=== PATIENT | male | born 1960 | race Caucasian/White ===

== ENCOUNTER 2017-05-10 11:04 | Emergency (ER) | payer MEDICARE, MEDICAID, SELFPAY ==
[2017-05-10 11:06] VITALS: BP 138/86; PULSE 84; RESP 16; TEMP 36.4; O2SAT 96; BMI 26.0
--- NOTE | 2017-05-10 11:46 | ED.RN ---
PT PRESENTED REPORTING GETTING LIGHTHEADED AND FALLING SEVERAL TIMES LATELY. RECENT ADMISSION HERE FOR GI BLEED D/T HIS DRINKING. 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 SHE IS LEAVING AND LEFT HER CONTACT INFO IF QUESTIONS. SHE DENIES ANY CONCERNS AT PRESENT. NOTED BURN TO LEFT AC PT REPORTS HE FELL ON HIS SPACE HEATER AND GOT BURNT RECENTLY.
--- NOTE | 2017-05-10 11:48 | NURSING ---
ARCELIA YOUNG FROM [facility] [phone]
--- NOTE | 2017-05-10 12:04 | RAD_ITS ---
STUDY: X-RAY CHEST REASON FOR EXAM: Male, 57 years old. Reason falls. TECHNIQUE: AP upright portable view. COMPARISON: 01/17/2017. FINDINGS: The patient the tips remain in the right atrium and right ventricle. The mitral valve ring prosthesis is unchanged. The lungs are clear and expanded. There is no demonstrated pleural abnormality. Normal size heart. Calcified nodes in the left AP window are unchanged. Normal bilateral natali. Normal visualized pulmonary arteries. Normal visualized aortic arch and descending thoracic aorta. Normal visualized thoracic spine. Normal visualized ribs, clavicles, and shoulders. There is no demonstrated abnormality of the visualized soft tissue structures of the upper abdomen. RAD/Chest 1 View (Portable) IMPRESSION: 1. No acute cardiopulmonary pathology. 2. No significant interval changes when compared to 01/17/2017. Electronically Signed: Mehdi Cuellar MD at 12:40 EST , Service support ,
--- NOTE | 2017-05-10 12:04 | CT_ITS ---
STUDY: CT BRAIN WITHOUT CONTRAST REASON FOR EXAM: Male, 57 years old. Trauma sustained during a fall today. The patient is on Coumadin. RADIATION DOSAGE (If Supplied By Facility): CTDIvol = ( 44.99 ) mGy, DLP = ( 762.36 ) mGycm TECHNIQUE: Transaxial CT imaging of the brain was performed without administration of intravenous contrast material. Individualized dose optimization techniques were used for this CT. COMPARISON: July 29, 2016. FINDINGS: Normal soft tissue structures. Normal calvarium. Normal size ventricles and extra-axial spaces for the patient's age. There is calcification of the bilateral choroid plexus in the atrial trigonal region and bilateral temporal horns, unchanged compared the prior examination of July 29, 2016). There are areas of decreased attenuation within the white matter tracts of the supratentorial brain, consistent with microvascular disease changes. Normal basal ganglia and thalami. There is decreased attenuation in the poli suggesting chronic ischemic changes (axial series 2, image 11). Normal cerebellum. There is no intracranial hemorrhage. There are no findings of an acute ischemic infarction. Normal visualized paranasal sinuses. CT/Brain/Head without Contrast IMPRESSION: 1. Chronic involutional changes of the brain. 2. No intracranial hemorrhage. Electronically Signed: Garcia Valle DO at 12:52 EST Tel , Service support ,
--- NOTE | 2017-05-10 12:05 | ED.VISSUMM ---
- ER Visit Summary Date of Service: 05/10/17 Chief Complaint: Frequent falls History of Present Illness: The patient is a 57 M 3 of alcohol abuse he states he has been sober now for 1 month. He quit drinking last month. He does have a history of A. fib and a prior mitral valve replacement for which she is anticoagulated on Coumadin. Patient states that he falls frequently and today he fell asleep on the commode fell off and struck his head. He denies any headache. He denies any nausea or vomiting. He states he was transferred to [facility] 1-2 weeks ago for GI bleed. He denies any fever, shortness of breath, chest pain or abdominal pain. Physical Examination: Middle-aged male no acute distress. Vital signs are stable and afebrile. Pulse ox is 96% on room air no signs of hypoxia. HEENT exam atraumatic. Pupils round reactive light. No signs of facial or scalp trauma. Nontender. No hematomas. Poor dentition. C-spine nontender. Dry skin on his posterior neck. Trachea midline. Lungs clear to auscultation bilaterally. Heart he has mitral valve click. I do not appreciate any murmur. Appears to be a sinus rhythm. Chest wall nontender. Abdomen soft nontender. Normal bowel sounds. No peritoneal signs. Pelvic girdle intact. He is moving all 4 extremities. Neurovascular intact. Bilateral equal symmetrical neon installer strength. Dorsi plantar flexion intact. No deformities. Back exam no signs of trauma. No bruising. Neurologically is awake and alert without focal motor deficits. Test Results: CT of the brain no congestion no acute abnormality. Chest x-ray showed no acute abnormality. No change from prior chest x-ray. White count of 5. H&H 10.8 and 33 which is his baseline chronic anemia. Electrolytes unremarkable sodium 135 and potassium of 3.4. Normal gap and creatinine. INR is 1.8. Emergency Department Course and Treatment: She with frequent falls a prior history of alcohol abuse and on a blood thinner. Screening labs, CT of his head and a chest x-ray will be obtained. Treatment Plan: Repeat exam patient is doing well. He did ambulate in the hallway and did well according the nurses. He is comfortable being discharged to home. Disposition: discharge Impression: Frequent falls History of mitral valve replacement on anticoagulation History of prior upper GI bleed Reported history of prior alcohol abuse This note was generated with [employer] dictation software. It may contain incorrect words, spelling, and punctuation that were not noted in review of the chart prior to signing ED Disposition - Plan for ED Patient: Chief Complaint: Fall Referrals: Josue Cifuentes MD [Primary Care Provider] -
--- NOTE | 2017-05-10 12:08 | ED.DCSUM_ITS ---
- ER Visit Summary Date of Service: 05/10/17 Chief Complaint: Frequent falls History of Present Illness: The patient is a 57 M 3 of alcohol abuse he states he has been sober now for 1 month. He quit drinking last month. He does have a history of A. fib and a prior mitral valve replacement for which she is anticoagulated on Coumadin. Patient states that he falls frequently and today he fell asleep on the commode fell off and struck his head. He denies any headache. He denies any nausea or vomiting. He states he was transferred to [facility] 1-2 weeks ago for GI bleed. He denies any fever, shortness of breath, chest pain or abdominal pain. Physical Examination: Middle-aged male no acute distress. Vital signs are stable and afebrile. Pulse ox is 96% on room air no signs of hypoxia. HEENT exam atraumatic. Pupils round reactive light. No signs of facial or scalp trauma. Nontender. No hematomas. Poor dentition. C-spine nontender. Dry skin on his posterior neck. Trachea midline. Lungs clear to auscultation bilaterally. Heart he has mitral valve click. I do not appreciate any murmur. Appears to be a sinus rhythm. Chest wall nontender. Abdomen soft nontender. Normal bowel sounds. No peritoneal signs. Pelvic girdle intact. He is moving all 4 extremities. Neurovascular intact. Bilateral equal symmetrical claims examiner strength. Dorsi plantar flexion intact. No deformities. Back exam no signs of trauma. No bruising. Neurologically is awake and alert without focal motor deficits. Test Results: CT of the brain no congestion no acute abnormality. Chest x-ray showed no acute abnormality. No change from prior chest x-ray. White count of 5. H&H 10.8 and 33 which is his baseline chronic anemia. Electrolytes unremarkable sodium 135 and potassium of 3.4. Normal gap and creatinine. INR is 1.8. Emergency Department Course and Treatment: She with frequent falls a prior history of alcohol abuse and on a blood thinner. Screening labs, CT of his head and a chest x-ray will be obtained. Treatment Plan: Repeat exam patient is doing well. He did ambulate in the hallway and did well according the nurses. He is comfortable being discharged to home. Disposition: discharge Impression: Frequent falls History of mitral valve replacement on anticoagulation History of prior upper GI bleed Reported history of prior alcohol abuse This note was generated with [employer] dictation software. It may contain incorrect words, spelling, and punctuation that were not noted in review of the chart prior to signing ED Disposition - Plan for ED Patient: Chief Complaint: Fall Referrals: Josue Cifuentes MD [Primary Care Provider] -
[2017-05-10 12:20] LABS: Absolute Lymphocyte Count 0.99 X10^3/ul (0.83-4.51); Absolute Neutrophil Count 3.6 X10^3/uL (2.0-7.7); Basophil# 0.03 X10^3/uL; Basophil% 0.5 % (0-1); Eosinophil# 0.38 X10^3/uL; Eosinophils% 6.7 % (0-5); Hematocrit 33.5 % (40-54); Hemoglobin 10.8 g/dl (13.0-16.5); Lymphocyte # 0.99 X10^3/ul (4.0); Lymphocyte % 17.4 % (19-41); Mean Corp Hgb Conc 32.2 g/gl (32-36); Mean Corpuscular Hgb 30.6 pg (27.0-32.0); Mean Corpuscular Volume 94.9 fL (80-94); Mean Platelet Vol. 9.2 fl (6.2-12.0); Monocyte# 0.66 X10^3/uL; Monocyte% 11.6 % (0-10); Neutrophil # 3.63 X10^3/uL (2.7-7.7); Neutrophil % 63.6 % (47-70); Platelet Count 193 K/mm3 (150-450); RBC Distribution Width CV 13.5 % (11.6-14.6); RBC Distribution Width SD 46.5 fl (35.1-43.9); Red Blood Count 3.53 M/mm3 (4.6-6.2); White Blood Count 5.7 K/mm3 (4.4-11.0)
[2017-05-10 12:23] LABS: International Normalized Ratio 1.8; POSITIVE COUNT NO; POSITIVE DIFFERENTIAL NO; POSITIVE MORPHOLOGY NO; Prothrombin Time (Protime)PT. 20.1 SECONDS (11.7-14.9)
[2017-05-10 12:26] LABS: Anion Gap 6 (5-15); BUN 9 mg/dL (7-18); BUN/Creat Ratio 12.1 RATIO (10-20); Calcium,Total 8.5 mg/dL (8.5-10.1); Chloride 98 mmol/L (98-107); Creatinine, Serum 0.74 mg/dL (0.70-1.30); EST Glomerular Filtration Rate 115 mL/min (>60); Est Glom Filt Rate - Afr Amer 139 mL/min (>60); Glucose 90 mg/dL (74-106); Potassium 3.4 mmol/L (3.5-5.1); Sodium Level 135 mmol/L (136-145)
[2017-05-10 13:01] VITALS: O2SAT 95
[2017-05-10 13:06] VITALS: BP 129/63
--- NOTE | 2017-05-10 13:08 | ED.DEP ---
ED Disposition - Plan for ED Patient: Disposition: Home or Assisted Living Chief Complaint: Fall Instructions: ED Fall Uncertain Cause Referrals: Josue Cifuentes MD [Primary Care Provider] - Keep [facility] appointment Additional Instructions: Continue your current medications. Follow-up your primary care physician.
[2017-05-10 13:18] VITALS: BP 129/96; PULSE 99; RESP 16; O2SAT 99
== END 2017-05-10 13:19 | disposition home or self-care (01) ==
PROVIDERS: Emergency Provider Emergency Medicine; Family Provider Family Medicine; PCP Family Medicine
DX: R29.6 Repeated falls (principal); F10.21 Alcohol dependence, in remission; I48.91 Unspecified atrial fibrillation; Z95.2 Presence of prosthetic heart valve; Z79.01 Long term (current) use of anticoagulants; Z72.0 Tobacco use; Z79.51 Long term (current) use of inhaled steroids; Z79.891 Long term (current) use of opiate analgesic; Z79.899 Other long term (current) drug therapy
CPT/HCPCS: 70450; 71045; 80048; 85025; 85610; 99283; A4216

== ENCOUNTER 2017-06-24 11:21 | Emergency (ER) | payer MEDICARE, MEDICAID, SELFPAY ==
[2017-06-24 11:22] VITALS: BP 144/77; PULSE 72; RESP 16; TEMP 36.9; O2SAT 98; BMI 25.4
--- NOTE | 2017-06-24 11:49 | EKG12_ITS ---
Test Reason : DYSRHYTHMIA Blood Pressure : / mmHG Vent. Rate : 064 BPM Atrial Rate : 064 BPM P-R Int : 212 ms QRS Dur : 100 ms QT Int : 440 ms P-R-T Axes : 042 -05 047 degrees QTc Int : 453 ms Atrial-paced rhythm with prolonged AV conduction with occasional Premature ventricular complexes Abnormal ECG Confirmed by MERLINE CORBETT, JALEEL ([id number]), editorial specialist RAYNA ALVA ([id number]) on 06/26/2017 1:47:19 PM Referred By: SURESH Confirmed By:JALEEL RICK MD
--- NOTE | 2017-06-24 11:49 | CT_ITS ---
STUDY: CT BRAIN WITHOUT CONTRAST REASON FOR EXAM: Male, 57 years old. Status post fall. EtOH. Lacerations and abrasions. RADIATION DOSAGE (If Supplied By Facility): CTDIvol = ( 44.99 ) mGy, DLP = ( 779.24 ) mGycm TECHNIQUE: Transaxial CT imaging of the brain was performed without administration of intravenous contrast material. Individualized dose optimization techniques were used for this CT. COMPARISON: 05/10/2017. FINDINGS: Normal soft tissue structures. Normal calvarium. There is mild widening of the extra-axial spaces and ventricular dilatation. There are areas of decreased attenuation within the white matter tracts of the supratentorial brain, consistent with microvascular disease changes. Normal basal ganglia and thalami. Normal brainstem. Normal cerebellum. There is no intracranial hemorrhage. There are no findings of an acute ischemic infarction. There is mucosal thickening of the ethmoid sinuses bilaterally. CT/Brain/Head without Contrast IMPRESSION: Chronic involutional changes of the brain. No acute intracranial process. Electronically Signed: Mohsen Caba MD at 14:00 EDT Tel , Service support ,
--- NOTE | 2017-06-24 11:49 | RAD_ITS ---
STUDY: X-RAY CHEST REASON FOR EXAM: Male, 57 years old. Fall today. Weakness. TECHNIQUE: Single frontal view of the chest. COMPARISON: May 10, 2017 FINDINGS: There is stable mild hyperexpansion with a diffuse interstitial pattern and basilar atelectasis. There is no demonstrated pleural abnormality. There is cardiomegaly with sternotomy wires, valve replacement changes and a dual-lead cardiac pacer. There are calcified hilar and mediastinal nodes unchanged. Normal visualized pulmonary arteries. Normal visualized aortic arch and descending thoracic aorta. Normal visualized thoracic spine. Normal visualized ribs, clavicles, and shoulders. There is no demonstrated abnormality of the visualized soft tissue structures of the upper abdomen. RAD/Chest 1 View (Portable) IMPRESSION: Stable appearance of the chest with no new or acute pathology. Electronically Signed: Keyon Callahan MD at 12:38 EDT , Service support ,
--- NOTE | 2017-06-24 11:59 | ED.DCSUM_ITS ---
- ER Visit Summary Date of Service: 06/24/17 Chief Complaint: Fall History of Present Illness: The patient is a 57 M who fell this morning. He is not sure why he fell, he did not lose consciousness. He feels like someone pushes him over. This is happened multiple times in the past. He did hit his forehead and left foster. He does take blood thinners and has a mitral valve replacement. He also has a history of paroxysmal atrial fibrillation and pacer placement. No other new injuries or symptoms. He complains of chronic back pain. He does take opioids. Physical Examination: Vital signs unremarkable. Afebrile. Nontoxic and in no acute distress. He has a superficial abrasion over his left eyebrow but otherwise his face and head are atraumatic. Neck is nontender. Heart regular. Lungs clear. Abdomen soft and nontender. Back nontender. Extremities nontender. He does have a left anterior foster abrasion. Neurovascular intact distally. Bilateral lower extremity edema, symmetric, and supple. No focal or lateralizing neurologic abnormalities. Test Results: All studies pending at this time. We will check CT head, chest x- ray, EKG, troponin, labs, INR, and urinalysis. Emergency Department Course and Treatment: Workup is completely unremarkable. Chest x-ray stable. CT head showed chronic changes. EKG showed a paced rhythm at a rate of 64. CBC normal. CMP normal. INR 2.3, therapeutic. Urinalysis unremarkable. Troponin normal. Patient is requesting increased opioids for his chronic back pain. I advised him that he already sees pain management and has a prescription for opioids. He should continue taking those as prescribed. I believe they are in some way contributing to his frequent falls. I cannot find an acute cause for his falls. I cannot find a reason for further emergent workup or inpatient care. Patient has a walker and was instructed to use it. He should follow-up with his PCP and pain doctor for further outpatient care. Return for any new or worsening issues. Abrasion to forehead and left foster are superficial. No active bleeding. No indication for sutures or seble. Treatment Plan: As above Disposition: Discharged Impression: 1. Fall 2. Multiple abrasions 3. Chronic back pain This note was generated with [employer] dictation software. It may contain incorrect words, spelling, and punctuation that were not noted in review of the chart prior to signing ED Disposition - Plan for ED Patient: Chief Complaint: Fall Referrals: Josue Cifuentes MD [Primary Care Provider] -
--- NOTE | 2017-06-24 12:09 | ED.RN ---
lac to left eyebrow, left chin, bruise to inner left elbow.
[2017-06-24 12:16] LABS: Absolute Lymphocyte Count 0.87 X10^3/ul (0.83-4.51); Absolute Neutrophil Count 5.1 X10^3/uL (2.0-7.7); Basophil# 0.02 X10^3/uL; Basophil% 0.3 % (0-1); Eosinophil# 0.11 X10^3/uL; Eosinophils% 1.6 % (0-5); Hematocrit 40.1 % (40-54); Hemoglobin 13.2 g/dl (13.0-16.5); Lymphocyte # 0.87 X10^3/ul (4.0); Lymphocyte % 12.9 % (19-41); Mean Corp Hgb Conc 32.9 g/gl (32-36); Mean Corpuscular Hgb 30.4 pg (27.0-32.0); Mean Corpuscular Volume 92.4 fL (80-94); Mean Platelet Vol. 10.3 fl (6.2-12.0); Monocyte# 0.64 X10^3/uL; Monocyte% 9.5 % (0-10); Neutrophil # 5.08 X10^3/uL (2.7-7.7); Neutrophil % 75.6 % (47-70); POSITIVE COUNT NO; POSITIVE DIFFERENTIAL NO; POSITIVE MORPHOLOGY NO; Platelet Count 159 K/mm3 (150-450); RBC Distribution Width CV 13.4 % (11.6-14.6); RBC Distribution Width SD 45.5 fl (35.1-43.9); Red Blood Count 4.34 M/mm3 (4.6-6.2); White Blood Count 6.7 K/mm3 (4.4-11.0)
[2017-06-24 12:27] LABS: International Normalized Ratio 2.3; Prothrombin Time (Protime)PT. 25.5 SECONDS (11.7-14.9)
[2017-06-24 12:39] LABS: ALB/GLOB Ratio 1.1 RATIO (0.9-2.4); AST(SGOT) 47 U/L (15-37); Alanine Aminotransfer ALT/SGPT 25 U/L (16-61); Albumin, Serum 3.9 g/dL (3.2-5.0); Alkaline Phosphatase 92 U/L (45-117); BUN 11 mg/dL (7-18); BUN/Creat Ratio 11.4 RATIO (10-20); Calcium,Total 8.7 mg/dL (8.5-10.1); Chloride 98 mmol/L (98-107); Creatinine, Serum 0.96 mg/dL (0.70-1.30); EST Glomerular Filtration Rate 85 mL/min (>60); Est Glom Filt Rate - Afr Amer 103 mL/min (>60); Estimated Creatinine Clearance 66.68 ml/min; Globulin 3.7 g/dL (2.2-4.2); Glucose 95 mg/dL (74-106); Potassium 3.6 mmol/L (3.5-5.1); Protein, Total 7.6 g/dL (6.4-8.2); Sodium Level 137 mmol/L (136-145)
[2017-06-24 12:40] LABS: Anion Gap 8 (5-15)
[2017-06-24 13:09] LABS: Bacteria 0 SEEN /hpf (None Seen); Mucous, Urine 0 SEEN /hpf (<or=2+)
[2017-06-24 13:14] LABS: Color, Urine Yellow (Yellow); Glucose, Dipstick Normal (Normal); Ketone-Dipstick 15 mg/dl (Negative); Leukocyte Esterase-Dipstick 25 /ul (Negative); Nitrite-Dipstick Negative (Negative); Occult Blood-Urine 10 /ul (Negative); Protein-Dipstick Negative (Negative); Urine Bilirubin Dipstick Negative (Negative); Urine Clarity Clear (Clear); Urine Urobilinogen Normal (Normal)
[2017-06-24 13:24] LABS: White Blood Cells 0-5 SEEN /hpf (0-5)
[2017-06-24 13:25] LABS: Red Blood Cells-Urine 0-5 SEEN /hpf (0-5); Squamous Epithelial Cells - UA 0 SEEN /hpf (0-5)
[2017-06-24 13:47] VITALS: RESP 16
[2017-06-24 15:10] VITALS: BP 153/3; PULSE 76; RESP 18; O2SAT 97
--- NOTE | 2017-06-24 15:22 | ED.DEP ---
ED Disposition - Plan for ED Patient: Chief Complaint: Fall Instructions: ED Prevention Fall Referrals: Josue Cifuentes MD [Primary Care Provider] -
[2017-06-24 15:30] VITALS: BP 153/72; PULSE 74; RESP 18; O2SAT 97
== END 2017-06-24 15:30 | disposition home or self-care (01) ==
PROVIDERS: Emergency Provider Emergency Medicine; Family Provider Family Medicine; PCP Family Medicine
DX: S00.212A Abrasion of left eyelid and periocular area, initial encounter (principal); S80.812A Abrasion, left lower leg, initial encounter; M54.9 Dorsalgia, unspecified; G89.29 Other chronic pain; I48.0 Paroxysmal atrial fibrillation; Z95.2 Presence of prosthetic heart valve; Z95.0 Presence of cardiac pacemaker; F03.90 Unspecified dementia, unspecified severity, without behavioral disturbance, psychotic disturbance, mood disturbance, and anxiety; J44.9 Chronic obstructive pulmonary disease, unspecified; K21.9 Gastro-esophageal reflux disease without esophagitis; I10 Essential (primary) hypertension; E78.00 Pure hypercholesterolemia, unspecified; N40.0 Benign prostatic hyperplasia without lower urinary tract symptoms; Z72.0 Tobacco use; Z79.01 Long term (current) use of anticoagulants; Z79.51 Long term (current) use of inhaled steroids; Z79.891 Long term (current) use of opiate analgesic; Z79.899 Other long term (current) drug therapy; W18.30XA Fall on same level, unspecified, initial encounter; Y93.89 Activity, other specified; Y92.009 Unspecified place in unspecified non-institutional (private) residence as the place of occurrence of the external cause; Y99.8 Other external cause status
CPT/HCPCS: 70450; 71045; 80053; 81001; 84484; 85025; 85610; 93005; 96360; 96361; 99283; J7030; J7040; A4216

== ENCOUNTER 2017-08-18 11:49 | Emergency (ER) | payer MEDICARE, MEDICAID, SELFPAY ==
[2017-08-18 11:50] VITALS: BP 142/68; PULSE 83; RESP 18; TEMP 36.7; O2SAT 96; BMI 24.7
[2017-08-18 12:16] VITALS: BP 122/91; BP 129/78; BP 138/85; PULSE 80; PULSE 90
[2017-08-18] MEDS: 0.9% Normal Saline 1,000 ML 1000 ML IV (12:23)
[2017-08-18 12:35] LABS: Absolute Lymphocyte Count 1.55 X10^3/ul (0.83-4.51); Absolute Neutrophil Count 6.6 X10^3/uL (2.0-7.7); Basophil# 0.01 X10^3/uL; Basophil% 0.1 % (0-1); Eosinophil# 0.22 X10^3/uL; Eosinophils% 2.4 % (0-5); Hematocrit 45.2 % (40-54); Hemoglobin 15.5 g/dl (13.0-16.5); Lymphocyte # 1.55 X10^3/ul (4.0); Lymphocyte % 16.9 % (19-41); Mean Corp Hgb Conc 34.3 g/gl (32-36); Mean Corpuscular Hgb 30.9 pg (27.0-32.0); Mean Corpuscular Volume 90.2 fL (80-94); Mean Platelet Vol. 10.5 fl (6.2-12.0); Monocyte# 0.84 X10^3/uL; Monocyte% 9.1 % (0-10); Neutrophil # 6.55 X10^3/uL (2.7-7.7); Neutrophil % 71.3 % (47-70); Platelet Count 159 K/mm3 (150-450); RBC Distribution Width CV 14.1 % (11.6-14.6); RBC Distribution Width SD 46.2 fl (35.1-43.9); Red Blood Count 5.01 M/mm3 (4.6-6.2); White Blood Count 9.2 K/mm3 (4.4-11.0)
[2017-08-18 12:40] LABS: POSITIVE COUNT NO; POSITIVE DIFFERENTIAL NO; POSITIVE MORPHOLOGY NO
[2017-08-18 12:52] LABS: Prothrombin Time (Protime)PT. 22.8 SECONDS (11.7-14.9)
[2017-08-18 12:53] LABS: Partial Thromboplast Time 40.5 Seconds (24.1-36.2)
[2017-08-18 12:59] LABS: ALB/GLOB Ratio 1.1 RATIO (0.9-2.4); AST(SGOT) 25 U/L (15-37); Alanine Aminotransfer ALT/SGPT 22 U/L (16-61); Albumin, Serum 4.1 g/dL (3.2-5.0); Alkaline Phosphatase 85 U/L (45-117); Anion Gap 5 (5-15); BUN 7 mg/dL (7-18); BUN/Creat Ratio 7.6 RATIO (10-20); Calcium,Total 9.2 mg/dL (8.5-10.1); Chloride 102 mmol/L (98-107); Creatinine, Serum 0.92 mg/dL (0.70-1.30); EST Glomerular Filtration Rate 90 mL/min (>60); Est Glom Filt Rate - Afr Amer 109 mL/min (>60); Estimated Creatinine Clearance 69.58 ml/min; Globulin 3.8 g/dL (2.2-4.2); Glucose 79 mg/dL (74-106); Lipase 140 U/L (73-393); Potassium 3.8 mmol/L (3.5-5.1); Protein, Total 7.9 g/dL (6.4-8.2); Sodium Level 136 mmol/L (136-145)
--- NOTE | 2017-08-18 13:01 | ED.VISSUMM ---
- ER Visit Summary Date of Service: 08/18/17 Chief Complaint: Diarrhea History of Present Illness: The patient is a [address] Thomason and Dr. Medina. He reports he has diarrhea that began 2 weeks ago. States that he is having this 3-4 times per day. It is kind of black. He reports he is an aching, burning epigastric pain 10 worsening 710 currently. Is worsened by food and relieved by nothing. He has had nausea without vomiting. Patient denies sick contacts. Has not been camping out of the country. No possible bad food exposure. Does not drink well water. No recent antibiotic use. Physical Examination: Vitals: Stable. Afebrile. General: Well-nourished and well-developed. Head: Normocephalic atraumatic. Neck: Supple, no lymphadenopathy. No JVD. Nontender. Cardiovascular: Regular rate and rhythm. No murmurs. Respiratory: No respiratory distress. Clear to auscultation bilaterally. Abdominal: Soft, mild epigastric tenderness to palpation, nondistended, normal bowel sounds. No guarding, rebound, or peritoneal signs. Back: Nontender. Extremities: Nontender, no edema. Skin: Normal color, no rash. Neurologic: Alert and oriented ?3. Cranial nerves II through XII are intact. Normal strength and sensation. Psych: Normal affect. Test Results: CBC is remarkable for a hemoglobin of 15.5. His last hemoglobin was 13.2. It has been between 6.8 and 12.8 between May 2016 and April 2017. Chem-7 is normal. His BUN is 7. His INR is 2.0. LFTs are normal. Lipase is normal. Emergency Department Course and Treatment: Patient was given Protonix IV. He has had no diarrhea while here. Treatment Plan: There is no evidence the patient is having melena. His BUN and hemoglobin are normal. I feel it is a suitable candidate for further outpatient evaluation. He will be discharged instructions to follow-up with Dr. Thomason in 3-5 days if not improving. Return to the emergency department for any worsening symptoms. Disposition: To home in improved and stable condition. Impression: 1. Diarrhea. 2. Abdominal pain, uncertain cause. This note was generated with [employer] software. It may contain incorrect words, spelling, and punctuation that were not noted in review of the chart prior to signing ED Disposition - Plan for ED Patient: Disposition: Home or Assisted Living Chief Complaint: GI Bleed Instructions: ED Diarrhea Viral Referrals: Josue Cifuentes MD [Primary Care Provider] - 3-5 Days if not improving
[2017-08-18 13:14] VITALS: BP 125/66; PULSE 73; RESP 12; O2SAT 99
== END 2017-08-18 13:14 | disposition home or self-care (01) ==
LOC: ED 12:26
PROVIDERS: Emergency Provider Emergency Medicine; Family Provider Family Medicine; PCP Family Medicine
DX: R10.13 Epigastric pain (principal); R19.7 Diarrhea, unspecified; I10 Essential (primary) hypertension; M54.9 Dorsalgia, unspecified; G89.29 Other chronic pain; Z79.01 Long term (current) use of anticoagulants; Z79.899 Other long term (current) drug therapy
CPT/HCPCS: 80053; 83690; 85025; 85610; 85730; 86850; 86900; 96365; 99285; J7030; A4216

== ENCOUNTER 2017-09-21 13:56 | Emergency (ER) | payer MEDICARE, MEDICAID, SELFPAY ==
[2017-09-21 13:57] VITALS: BP 139/80; PULSE 93; RESP 16; TEMP 36.6; O2SAT 97; BMI 25.1
[2017-09-21 14:35] LABS: Absolute Lymphocyte Count 1.66 X10^3/ul (0.83-4.51); Absolute Neutrophil Count 5.9 X10^3/uL (2.0-7.7); Basophil# 0.02 X10^3/uL; Basophil% 0.2 % (0-1); Eosinophils% 1.2 % (0-5); Hematocrit 43.2 % (40-54); Hemoglobin 15.2 g/dl (13.0-16.5); Lymphocyte # 1.66 X10^3/ul (4.0); Lymphocyte % 20.2 % (19-41); Mean Corp Hgb Conc 35.2 g/gl (32-36); Mean Corpuscular Hgb 32.5 pg (27.0-32.0); Mean Corpuscular Volume 92.3 fL (80-94); Mean Platelet Vol. 9.4 fl (6.2-12.0); Monocyte# 0.56 X10^3/uL; Monocyte% 6.8 % (0-10); Neutrophil # 5.85 X10^3/uL (2.7-7.7); Neutrophil % 71.5 % (47-70); Platelet Count 188 K/mm3 (150-450); RBC Distribution Width CV 13.9 % (11.6-14.6); Red Blood Count 4.68 M/mm3 (4.6-6.2); White Blood Count 8.2 K/mm3 (4.4-11.0)
[2017-09-21 14:38] LABS: POSITIVE COUNT NO; POSITIVE DIFFERENTIAL NO; POSITIVE MORPHOLOGY NO
[2017-09-21 14:47] LABS: AST(SGOT) 53 U/L (15-37); Alanine Aminotransfer ALT/SGPT 34 U/L (16-61); Albumin, Serum 3.8 g/dL (3.2-5.0); Alkaline Phosphatase 76 U/L (45-117); Bilirubin, Direct 0.16 mg/dL (0.00-0.30); Globulin 4.1 g/dL (2.2-4.2); Lipase 93 U/L (73-393); Protein, Total 7.9 g/dL (6.4-8.2)
[2017-09-21 15:06] LABS: Prothrombin Time (Protime)PT. 44.7 SECONDS (11.7-14.9)
--- NOTE | 2017-09-21 15:10 | ED.VISSUMM ---
- ER Visit Summary Date of Service: 09/21/17 Chief Complaint: Weakness History of Present Illness: The patient is a 57 M with history of mechanical valve, was seen in the outpatient environment and found to have a INR of 8. Patient says he has coffee ground stool. No nausea or vomiting, some slight diarrhea. He endorses some chronic recurrent right upper quadrant abdominal pain. No fever or chills. Physical Examination: Patient appears chronically ill, does not appear in significant distress. Slightly dry mucous membranes, no obvious facial deformity No C-spine tenderness supple neck. Regular rate and rhythm without any obvious murmurs Clear lungs bilaterally speaking in full sentences without any obvious respiratory distress Abdomen soft with slight tenderness in the right upper quadrant which is chronic. Moves all extremities without any difficulty or pain. Skin does not show any obvious rashes or lesions, no trauma. No jaundice. Rectal shows dark stool but not black. Alert oriented ?3 with no gross focal deficit Emergency Department Course and Treatment: Patient has a normal hemoglobin, his INR here is 4.7, there is no evidence of bleeding on his guaiac. He appears well he is in pain management for his chronic right upper quadrant pain, he appears well and he is at baseline. I will discharge him with follow-up. He is told to skip his next 2 days of Coumadin, start again and stop drinking Impression: Supratherapeutic INR. This note was generated with [employer] dictation software. It may contain incorrect words, spelling, and punctuation that were not noted in review of the chart prior to signing ED Disposition - Plan for ED Patient: Disposition: Home or Assisted Living Chief Complaint: GI Bleed Referrals: Josue Cifuentes MD [Primary Care Provider] - 3-5 Days Additional Instructions: Stop your Coumadin for the next 2 days. Strongly consider detox for alcohol
[2017-09-21 15:12] LABS: International Normalized Ratio 4.7
[2017-09-21 15:46] VITALS: BP 101/86; PULSE 68; RESP 16
--- NOTE | 2017-09-21 16:05 | ED.RN ---
PT DID NOT WANT TO WAIT FOR MEDS FROM PHARMACY. LEFT BEFORE GIVEN MED. D/C INSTRUCTIONS GIVEN.
== END 2017-09-21 15:55 | disposition home or self-care (01) ==
PROVIDERS: Emergency Provider Emergency Medicine; Family Provider Family Medicine; PCP Family Medicine
DX: R79.1 Abnormal coagulation profile (principal); R19.7 Diarrhea, unspecified; R10.11 Right upper quadrant pain; G89.29 Other chronic pain; I10 Essential (primary) hypertension; E78.00 Pure hypercholesterolemia, unspecified; K74.60 Unspecified cirrhosis of liver; Z95.2 Presence of prosthetic heart valve; Z79.01 Long term (current) use of anticoagulants; Z79.899 Other long term (current) drug therapy
CPT/HCPCS: 80076; 82274; 83690; 85025; 85610; 96360; 99284; J7030; J7040; A4216

== ENCOUNTER 2017-09-28 14:03 | Inpatient (IN) | payer MEDICARE, MEDICAID, SELFPAY ==
[2017-09-28] VITALS (9 sets, daily range): BP systolic 116–152; BP diastolic 75–94; PULSE 65–113; RESP 14–18; TEMP 37.1–37.2; O2SAT 95–98; BMI 23.3; BMI 23.8
--- NOTE | 2017-09-28 16:12 | ED.VISSUMM ---
- ER Visit Summary Date of Service: 09/28/17 Chief Complaint: Need help with alcohol History of Present Illness: The patient is a [address] Cifuentes, Dr. Medina, and Dr. Sesay. He reports that he has been drinking 8-12 Budweiser a day for the past 2 weeks. States that he had not had anything to drink for 4 months before that. 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 States that he is drinking to control the pain. Patient reports that he has had 6 beers today. Patient reports approximately a week ago he was trying to pluck hairs out of his right ear with tweezers and has had bleeding and pain in that ear since. He has a chronic cough that is unchanged. Patient reports he has dull upper abdominal pain began a week ago. Is 4 out of 10 severity. He has been nausea and vomited 3 times today. No blood in his emesis. He has had diarrhea 4 times a day for the past 10 days. He reports that this is dark in color and looks like coffee grounds. Physical Examination: Vitals: Stable. Afebrile. General: Well-nourished and well-developed. Head: Normocephalic atraumatic. HEENT: Right external auditory canal is filled with blood. I am unable to see his TM. There is no active bleeding. Neck: Supple, no lymphadenopathy. No JVD. Nontender. Cardiovascular: Regular rate and rhythm. No murmurs. Respiratory: No respiratory distress. Clear to auscultation bilaterally. Abdominal: Soft, mild epigastric and right upper quadrant tenderness to palpation, nondistended, normal bowel sounds. No guarding, rebound, or peritoneal signs. Back: Nontender. Extremities: Nontender, no edema. Skin: Normal color, no rash. Neurologic: Alert and oriented ?3. Cranial nerves II through XII are intact. Normal strength and sensation. Psych: Normal affect. Test Results: CBC is marked for segment neutrophils 70 lymphocytes 17. Chem-7 marked potassium 3.3, glucose 121, even 5, creatinine 0.69, calcium 8.4. LFTs marked for an AST of 111. Lipase is normal. INR is 1.3. Of note his INR was 4.7 on September 21. PTT is 33.2. Blood alcohol level is 188. Tox screen shows marijuana. Emergency Department Course and Treatment: Patient had an IV placed. He is given a liter of normal saline. He was given a GI cocktail p.o. He was given Zofran and Pepcid IV. Treatment Plan: I discussed patient with Dr. Kirkpatrick. He asked the patient be given 10 mg of Coumadin today, tomorrow, Monday, and 7.5 mg on Monday and have his INR repeated on Monday. However, he would need to be on Lovenox during this time as well. Unfortunately at this time I am unable to arrange for him to have Lovenox at this time and he is not a reliable patient. I discussed this with Dr. Kirkpatrick and he was given 10 mg of Coumadin p.o. and started on a heparin drip. He was discussed with Dr. Cardona for and will be admitted for further evaluation and treatment. Disposition: Admitted in stable condition. Impression: 1. Alcohol intoxication. 2. Marijuana abuse. 3. Subtherapeutic INR. 4. History of mitral valve replacement, mechanical. This note was generated with [employer] dictation software. It may contain incorrect words, spelling, and punctuation that were not noted in review of the chart prior to signing ED Disposition - Plan for ED Patient: Chief Complaint: Substance Abuse Referrals: Josue Cifuentes MD [Primary Care Provider] -
[2017-09-28 16:17] LABS: Absolute Lymphocyte Count 1.47 X10^3/ul (0.83-4.51); Absolute Neutrophil Count 6.4 X10^3/uL (2.0-7.7); Basophil# 0.02 X10^3/uL; Basophil% 0.2 % (0-1); Eosinophils% 2.3 % (0-5); Hematocrit 42.1 % (40-54); Lymphocyte # 1.47 X10^3/ul (4.0); Lymphocyte % 16.7 % (19-41); Mean Corp Hgb Conc 35.6 g/gl (32-36); Mean Corpuscular Hgb 33.3 pg (27.0-32.0); Mean Corpuscular Volume 93.3 fL (80-94); Mean Platelet Vol. 9.8 fl (6.2-12.0); Monocyte# 0.74 X10^3/uL; Monocyte% 8.4 % (0-10); Neutrophil # 6.38 X10^3/uL (2.7-7.7); Neutrophil % 72.3 % (47-70); POSITIVE COUNT NO; POSITIVE DIFFERENTIAL NO; POSITIVE MORPHOLOGY NO; Platelet Count 166 K/mm3 (150-450); RBC Distribution Width CV 13.9 % (11.6-14.6); RBC Distribution Width SD 47.3 fl (35.1-43.9); Red Blood Count 4.51 M/mm3 (4.6-6.2); White Blood Count 8.8 K/mm3 (4.4-11.0)
[2017-09-28 16:18] LABS: International Normalized Ratio 1.3; Prothrombin Time (Protime)PT. 15.9 SECONDS (11.7-14.9)
[2017-09-28 16:19] LABS: Partial Thromboplast Time 33.2 Seconds (24.1-36.2)
[2017-09-28] MEDS: Ipratropium/Albuterol Sulfate 3 ML AMPUL.NEB INHALATION (16:22)
[2017-09-28 16:29] LABS: AST(SGOT) 111 U/L (15-37); Alanine Aminotransfer ALT/SGPT 42 U/L (16-61); Albumin, Serum 3.6 g/dL (3.2-5.0); Alkaline Phosphatase 74 U/L (45-117); Anion Gap 10 (5-15); BUN 5 mg/dL (7-18); BUN/Creat Ratio 7.3 RATIO (10-20); Bilirubin, Direct 0.21 mg/dL (0.00-0.30); Calcium,Total 8.4 mg/dL (8.5-10.1); Chloride 102 mmol/L (98-107); Creatinine, Serum 0.69 mg/dL (0.70-1.30); EST Glomerular Filtration Rate 125 mL/min (>60); Est Glom Filt Rate - Afr Amer 152 mL/min (>60); Estimated Creatinine Clearance 92.77 ml/min; Glucose 121 mg/dL (74-106); Potassium 3.3 mmol/L (3.5-5.1); Protein, Total 7.6 g/dL (6.4-8.2); Sodium Level 136 mmol/L (136-145)
[2017-09-28] MEDS: 0.9% Normal Saline 1,000 ML 1000 ML IV (16:36)
[2017-09-28] MEDS: Ondansetron 4 MG/2 ML Vial IV (16:36)
[2017-09-28 16:57] LABS: Lipase 180 U/L (73-393)
[2017-09-28 17:05] LABS: Amphetamine Urine VISTA NEGATIVE (<1000 ng/mL); Barbiturate Urine VISTA NEGATIVE (< 200 ng/mL); Benzodiazepine Urine VISTA NEGATIVE (< 200 ng/mL); Cocaine Urine VISTA NEGATIVE (< 300 ng/mL); Ecstacy Urine VISTA NEGATIVE (< 500 ng/mL); Methadone Urine VISTA NEGATIVE (< 300 ng/mL); PCP Urine VISTA NEGATIVE (< 25 ng/mL); THC Urine VISTA POSITIVE (< 50 ng/mL); Vista UDS pH Range 6
--- NOTE | 2017-09-28 18:31 | NURSING ---
Jolanta in ER notified patient may come to PCU.
--- NOTE | 2017-09-28 18:42 | HP.PCM_ITS ---
Problem List (1) Alcohol abuse Status: Chronic (2) H/O mitral valve replacement with mechanical valve Status: Chronic Comment: 27mm mechanical St[employer] Sharan Mitral Valve prosthesis (3) Nonrheumatic aortic (valve) insufficiency Status: Chronic (4) Hyperlipidemia Status: Chronic (5) Presence of permanent cardiac pacemaker Status: Chronic (6) Paroxysmal atrial fibrillation Status: Chronic (7) HTN (hypertension) Status: Chronic Qualifiers: History of Present Illness Date of Admission: 09/28/17 Chief Complaint: Need to help with alcohol abuse. The patient is a 57 year old M with past medical history as mentioned above presented to the emergency room requesting help quitting heavy alcohol drinking. He states that he has been drinking continuously for the last 2 weeks , anywhere from 8-12 beers daily. Before that, he is a known alcohol abuser, drinks almost 12 beers daily for long time to try to quit for a few months but he started back. He was not able to provide detailed history and he is a poor informant. He complains of vague abdominal pain that has been going on for more than a week with intermittent vomiting. He states that he did not take his Coumadin for last couple of days. He has history of mitral valve replacement with mechanical valve and he has been on Coumadin for anticoagulation. He has a history of alcohol abuse and has been drinking continuously over the last couple of weeks, before that, he used to drink 12 beers daily. He has a history of paroxysmal A. fib status post permanent pacemaker, has been on Coreg for rate control and on Coumadin for anti- coagulation. He has a history of hypertension and he has been on Coreg and lisinopril and his blood pressure has been under control. In the emergency department, he was slightly tachycardic, blood pressure stable, other vital signs are stable. His routine blood work is remarkable for potassium of 3.3, otherwise normal. INR is 1.3, subtherapeutic. LFT and lipase were normal. He is being admitted for alcohol intoxication/withdrawal and history of mitral valve replacement with metallic valve and with subtherapeutic INR needing anticoagulation with IV heparin. Past Medical History Past Medical History (Chronic Problems): Chronic Problems (Last Updated 09/28/17 @ 18:34 by Mike Cardona MD) Alcohol abuse (Chronic) H/O mitral valve replacement with mechanical valve (Chronic ~2009) 27[address] Sharan Mitral Valve prosthesis Nonrheumatic aortic (valve) insufficiency (Chronic) Hyperlipidemia (Chronic) Presence of permanent cardiac pacemaker (Chronic) Paroxysmal atrial fibrillation (Chronic) HTN (hypertension) (Chronic) Medical History: Medical History (Last Updated 09/28/17 @ 18:34 by Mike Cardona MD) H/O mitral valve replacement with mechanical valve (Chronic) Onset Date: ~ [address] Sharan Mitral Valve prosthesis Nonrheumatic aortic (valve) insufficiency (Chronic) I35.1 Hyperlipidemia (Chronic) E78.5 Presence of permanent cardiac pacemaker (Chronic) Z95.0 Paroxysmal atrial fibrillation (Chronic) I48.0 HTN (hypertension) (Chronic) I10 COPD (chronic obstructive pulmonary disease) J44.9 Dementia F03.90 History of GI bleed Z87.19 Alcoholic cirrhosis K70.30 Alcoholism /alcohol abuse F10.20 BPH (benign prostatic hyperplasia) N40.0 Depression F32.9 Allergies metronidazole Allergy (Verified 09/28/17 14:06) Unknown ibuprofen Adverse Reaction (Verified 09/28/17 14:06) Upset Stomach naproxen [From Aleve] Adverse Reaction (Verified 09/28/17 14:06) gi upset Home Medications: Ambulatory Orders Medication Instructions Recorded Acamprosate Calcium 666 mg PO TID 08/18/17 Ascorbic Acid [Vitamin C] 1,000 mg PO BID 08/18/17 Atorvastatin Calcium [Lipitor] 20 mg PO QHS 08/18/17 Carvedilol [Coreg] 3.125 mg PO BID 08/18/17 Donepezil HCl [Aricept] 10 mg PO QHS 08/18/17 Ferrous Sulfate 325 mg PO DAILY@0800 08/18/17 Finasteride [Proscar] 5 mg PO DAILY 08/18/17 Furosemide [Lasix] 40 mg PO BIDLX 08/18/17 Lisinopril [Zestril] 5 mg PO DAILY 08/18/17 Multivitamin/Iron/Folic Acid 1 each PO DAILY 08/18/17 [Centrum Adults Tablet] Omeprazole 40 mg PO DAILY 08/18/17 Oxybutynin [Ditropan] 5 mg PO TID 08/18/17 Paroxetine HCl [Paxil] 50 mg PO DAILY 08/18/17 Pramipexole Di-HCl [Mirapex] 0.5 mg PO DAILY 08/18/17 Pregabalin [Lyrica] 75 mg PO TID 08/18/17 Sennosides [Natural Laxative] 1 tab PO BID 08/18/17 Thiamine Mononitrate [Vitamin B-1] 100 mg PO DAILY 08/18/17 Trazodone HCl 300 mg PO QHS 08/18/17 Warfarin [Coumadin ([facility])] 7.5 mg PO TUTHSA 08/18/17 Warfarin [Coumadin ([facility])] 10 mg PO SUMOWEFR 08/18/17 Surgical History: Surgical History (Last Reviewed 07/12/17 @ 16:07 by Valerie Pedroza) History of arthroscopy of left shoulder Z98.890 History of cholecystectomy Z98.890, Z90.49 History of hernia repair Z98.890, Z87.19 History of sinus surgery Z98.890 Status post mitral valve replacement Onset Date: ~[address] Sharan Mitral Valve prosthesis Surgical History: - - mechanical mitral valve neck surgery, back surgery, right hip pinned. Psychiatric History: Anxiety Smoking Status: Current every day smoker Alcohol: Heavy Drugs: None - *Family History Maternal Family History: Family History (Last Reviewed 07/12/17 @ 16:07 by Valerie Pedroza) Mother Heart disease Father Heart disease CVA (cerebral vascular accident) Brother Heart disease Diabetes Sister Heart disease History Items: Cancer Paternal Family History: Family History (Last Reviewed 07/12/17 @ 16:07 by Valerie Pedroza) Mother Heart disease Father Heart disease CVA (cerebral vascular accident) Brother Heart disease Diabetes Sister Heart disease History Items: - - Father with history of blood clot, unclear type. Sibling Family History: Family History (Last Reviewed 07/12/17 @ 16:07 by Valerie Pedroza) Mother Heart disease Father Heart disease CVA (cerebral vascular accident) Brother Heart disease Diabetes Sister Heart disease History Items: No pertinent history Review of Systems Constitutional: Reports: Weakness. Denies: Anorexia, Chills, Fever Eyes: Denies: Blurred vision, Double vision, Drainage, Redness HEENT: Denies: Difficulty Hearing, Ear Pain, Eye Pain, Nasal Congestion, Sore Throat Cardiovascular: Denies: Chest Pain, Chest Pressure, Chest Tightness, Heaviness, Palpitations, Syncope Respiratory: Reports: Cough. Denies: Pleuritic Pain, Shortness of Breath, Sputum production, Wheezing Gastrointestinal: Reports: Abdominal Pain, Diarrhea, Nausea, Vomiting. Denies: Constipation Genitourinary: Denies: Dysuria, Frequency, Hematuria Musculoskeletal: Reports: Back Pain. Denies: Arm Pain, Foot Pain Skin: Denies: Dryness, Rash Neurological: Denies: Balance problems, Double vision, Change in Speech, Slurred speech, Confusion, Focal weakness, Headaches, Incoordination Psychiatric: Denies: Anxiety, Depression Endocrine: Denies: Change in Body Habitus, Polydipsia VTE Information - Inpt Only VTE Present on Admission: No VTE Mechan Device Prophylaxis: None VTE Pharm Prophylaxis ordered?: No - Physical Exam General: Alert, Oriented x3, Cooperative, No apparent distress HEENT: Atraumatic, PERRLA, EOMI, Normocephalic Oral: Moist Mucosa, No Gingival or Mucosal Lesions/ Ulcerations Neck: Supple, No JVD, Negative Carotid Bruits, Trachea Midline, Thyroid Normal Size and Texture Lungs: Clear to auscultation, No rhonchi, No wheeze, No rales, Diminished Cardiovascular: Regular rate, Regular Rhythm, Normal S1, Normal S2, PMI Normal, - - Metallic click. Abdomen: Bowel Sounds Present, Soft, Non-Distended, No Hepato-splenomegaly, Tender - No guarding or rigidity. Extremities: No clubbing, No cyanosis, No edema Skin: No rashes, No breakdown Lymphatic: No Cervical, Supraclavicular, or Inguinal Adenopathy Neurological: Cranial nerves II-XII grossly intact, Motor Exam 5/5 strength throughout Psych/Mental Status: Normal Affect, Anxious Vital Signs Temp Pulse Resp BP Pulse Ox 99 F 90 14 116/88 H 98 09/28/17 14:04 09/28/17 17:38 09/28/17 17:38 09/28/17 17:38 09/28/17 17:38 Oxygen Delivery Method Room Air Weight: 132 lb Body Mass Index (BMI) 23.3 Finger Stick Blood Glucose 109 Laboratory Tests Past 24 Hrs 09/28/17 09/28/17 09/28/17 16:00 16:00 16:00 WBC 8.8 RBC 4.51 L Hgb 15.0 Hct 42.1 MCV 93.3 MCH 33.3 H MCHC 35.6 RDW 13.9 RDW Differential 47.3 H Plt Count 166 MPV 9.8 Immature Gran % (Auto) 0.100 Neut % (Auto) 72.3 H Lymph % (Auto) 16.7 L [place] % (Auto) 8.4 Eos % (Auto) 2.3 Baso % (Auto) 0.2 Absolute Neuts (auto) 6.4 Absolute Lymphs (auto) 1.47 Total Counted Not Reportable PT 15.9 H INR 1.3 APTT 33.2 Sodium 136 Potassium 3.3 L Chloride 102 Carbon Dioxide 24.0 Anion Gap 10 BUN 5 L Creatinine 0.69 L Estim Creat Clear Calc 92.77 Est GFR (MDRD) Af Amer 152 Est GFR (MDRD) Non-Af 125 BUN/Creatinine Ratio 7.3 L Glucose 121 H Calcium 8.4 L Total Bilirubin 0.50 Direct Bilirubin 0.21 AST 111 H ALT 42 Alkaline Phosphatase 74 Total Protein 7.6 Albumin 3.6 Globulin 4.0 Lipase Urine Opiates Screen Urine Methadone Screen Ur Barbiturates Screen Ur Phencyclidine Scrn Ur Amphetamines Screen U Methamphetamin-MDMA U Benzodiazepines Scrn Urine Cocaine Screen U Cannabinoids Screen Ur Drug Screen Comment Ethyl Alcohol 09/28/17 09/28/17 09/28/17 16:00 16:00 16:10 WBC RBC Hgb Hct MCV MCH MCHC RDW RDW Differential Plt Count MPV Immature Gran % (Auto) Neut % (Auto) Lymph % (Auto) [place] % (Auto) Eos % (Auto) Baso % (Auto) Absolute Neuts (auto) Absolute Lymphs (auto) Total Counted PT INR APTT Sodium Potassium Chloride Carbon Dioxide Anion Gap BUN Creatinine Estim Creat Clear Calc Est GFR (MDRD) Af Amer Est GFR (MDRD) Non-Af BUN/Creatinine Ratio Glucose Calcium Total Bilirubin Direct Bilirubin AST ALT Alkaline Phosphatase Total Protein Albumin Globulin Lipase 180 Urine Opiates Screen NEGATIVE Urine Methadone Screen NEGATIVE Ur Barbiturates Screen NEGATIVE Ur Phencyclidine Scrn NEGATIVE Ur Amphetamines Screen NEGATIVE U Methamphetamin-MDMA NEGATIVE U Benzodiazepines Scrn NEGATIVE Urine Cocaine Screen NEGATIVE U Cannabinoids Screen POSITIVE H Ur Drug Screen Comment Ethyl Alcohol 188.0 Assessment/Plan This is a 57 years old male patient presented to the emergency room requesting help with his alcohol drinking behavior, complains of vague abdominal pain and restlessness, found to have subtherapeutic INR in context of history of mitral valve replacement with mechanical valve and he needs to be admitted for anti- coagulation with IV heparin as well as alcohol intoxication/withdrawal. #1 status post mechanical mitral valve placement with mechanical valve with subtherapeutic INR: Patient admitted not taking his Coumadin for the last couple of days because he has been drinking heavily for the last 2 weeks. His INR is 1.3. Vital signs are stable. Plan: Admit to PCU, cardiac monitoring, start IV heparin drip, cardiology consult, replace potassium with potassium chloride p.o., Coumadin 10 mg as needed, daily INR, PT OT evaluation and treatment. #2 alcohol intoxication: Blood alcohol level is 188. He admits to drinking heavily and daily for the last 2 weeks, before that he has been drinking 12 beers daily. Plan: CIWA protocol, thiamine and folic acid supplement, IV Ativan as needed as per protocol. #3 hypertension: Blood pressure stable, continue Coreg and lisinopril. #4 paroxysmal A. fib: Rate is controlled, blood pressure stable. Continue Coreg for rate control, start IV heparin for integration, continue Coumadin, daily INR. #5 hyperlipidemia: Continue statins. #6 alcohol abuse: Plan as above, CIWA protocol, folic acid, thiamine, Ativan as needed. #7 DVT prophylaxis: On IV heparin. This note was generated with [employer] dictation software. It may contain incorrect words, spelling, and punctuation that were not noted in checking the note before signing. Code Visit Inpatient E&M: 77195 Init Hosp L3
[2017-09-28] MEDS: Acetaminophen 325 MG Tablet 650 MG PO (22:13)
[2017-09-28] MEDS: LORazepam 1 MG Tablet 2 MG PO (22:14)
[2017-09-28] MEDS: Atorvastatin Calcium 20 MG Tablet PO (22:24)
[2017-09-28] MEDS: Pregabalin 75 MG Capsule PO (22:24)
[2017-09-28] MEDS: Oxybutynin 5 MG Tablet PO (22:25)
[2017-09-28] MEDS: Carvedilol 3.125 MG TABLET PO (22:25)
[2017-09-28] MEDS: Donepezil HCl 10 MG Tablet PO (22:25)
[2017-09-28] MEDS: traZODone 100 MG Tablet 300 MG PO (22:25)
[2017-09-29] VITALS (13 sets, daily range): BP systolic 111–152; BP diastolic 59–84; PULSE 69–97; RESP 16–18; TEMP 36.3–37; O2SAT 95–100
[2017-09-29 01:25] LABS: Partial Thromboplast Time 77.3 Seconds (24.1-36.2)
[2017-09-29] MEDS: Acetaminophen 325 MG Tablet 650 MG PO ×2 (05:50→22:32)
[2017-09-29] MEDS: Pregabalin 75 MG Capsule PO ×3 (05:50→22:33)
[2017-09-29] MEDS: Oxybutynin 5 MG Tablet PO ×3 (05:50→22:32)
[2017-09-29 07:04] LABS: Absolute Neutrophil Count 3.2 X10^3/uL (2.0-7.7); Basophil# 0.01 X10^3/uL; Basophil% 0.2 % (0-1); Eosinophil# 0.33 X10^3/uL; Eosinophils% 6.5 % (0-5); Hematocrit 36.3 % (40-54); Hemoglobin 12.5 g/dl (13.0-16.5); Lymphocyte % 21.6 % (19-41); Mean Corp Hgb Conc 34.4 g/gl (32-36); Mean Corpuscular Hgb 32.8 pg (27.0-32.0); Mean Corpuscular Volume 95.3 fL (80-94); Mean Platelet Vol. 9.8 fl (6.2-12.0); Monocyte# 0.47 X10^3/uL; Monocyte% 9.2 % (0-10); Neutrophil # 3.19 X10^3/uL (2.7-7.7); Neutrophil % 62.5 % (47-70); POSITIVE DIFFERENTIAL NO; Platelet Count 123 K/mm3 (150-450); RBC Distribution Width CV 13.9 % (11.6-14.6); RBC Distribution Width SD 47.4 fl (35.1-43.9); Red Blood Count 3.81 M/mm3 (4.6-6.2); White Blood Count 5.1 K/mm3 (4.4-11.0)
[2017-09-29 07:05] LABS: POSITIVE COUNT NO; POSITIVE MORPHOLOGY NO
[2017-09-29 07:21] LABS: Anion Gap 7 (5-15); BUN 5 mg/dL (7-18); BUN/Creat Ratio 7.3 RATIO (10-20); Calcium,Total 7.8 mg/dL (8.5-10.1); Chloride 106 mmol/L (98-107); Creatinine, Serum 0.68 mg/dL (0.70-1.30); EST Glomerular Filtration Rate 126 mL/min (>60); Est Glom Filt Rate - Afr Amer 153 mL/min (>60); Estimated Creatinine Clearance 94.14 ml/min; Glucose 79 mg/dL (74-106); Potassium 3.9 mmol/L (3.5-5.1); Sodium Level 139 mmol/L (136-145)
[2017-09-29 07:22] LABS: International Normalized Ratio 1.5; Prothrombin Time (Protime)PT. 18.3 SECONDS (11.7-14.9)
[2017-09-29 09:47] LABS: Partial Thromboplast Time 66.8 Seconds (24.1-36.2)
[2017-09-29] MEDS: LORazepam 1 MG Tablet 2 MG PO ×3 (09:55→22:32)
[2017-09-29] MEDS: Senna Tablet 1 TABLET PO ×2 (09:56→22:59)
[2017-09-29] MEDS: Finasteride 5 MG Tablet PO (09:56)
[2017-09-29] MEDS: Pramipexole Di-HCl 0.5 MG Tablet PO (09:56)
[2017-09-29] MEDS: Lisinopril 5 MG Tablet PO (09:56)
[2017-09-29] MEDS: Carvedilol 3.125 MG TABLET PO ×2 (09:56→22:32)
[2017-09-29] MEDS: Thiamine Hydrochloride 100 MG Tablet PO (09:56)
[2017-09-29] MEDS: Folic Acid 1 MG Tablet PO (09:56)
[2017-09-29] MEDS: Furosemide 40 MG Tablet PO ×2 (09:58→17:06)
[2017-09-29] MEDS: Ferrous Sulfate 325 MG Tablet PO (09:58)
[2017-09-29] MEDS: Pantoprazole Sodium 40 MG Tablet PO (09:58)
--- NOTE | 2017-09-29 11:25 | EKG12_ITS ---
Test Reason : Blood Pressure : / mmHG Vent. Rate : 075 BPM Atrial Rate : 075 BPM P-R Int : 184 ms QRS Dur : 094 ms QT Int : 400 ms P-R-T Axes : 045 010 050 degrees QTc Int : 446 ms Atrial-sensed ventricular-paced rhythm Abnormal ECG Confirmed by MARIUM CORBETT, KENYATTA ([id number]), telegraph editor RAYNA ALVA ([id number]) on 10/05/2017 2:13:21 PM Referred By: CHANDRA Confirmed By:KENYATTA CAUSEY MD
--- NOTE | 2017-09-29 11:25 | ECHOD_ITS ---
Reason For Study: Eval Valve Replacement Procedure This was a 2D Doppler, Color Flow transthoracic echocardiogram. The exam was of fair technical quality due to diminished acoustic windows. The study was technically difficult. Exam performed portable in patient room. Left Ventricle Normal LV size. Left ventricular systolic function is normal. The estimated ejection fraction is 65 %. Transmitral doppler flow suggestive of impaired relaxation of left ventricle. No regional wall motion abnormalities noted. Right Ventricle Normal RV size. ICD or pacer leads identified within the right ventricle. Normal systolic function. Atria The left atrium is mildly enlarged. The right atrium is mildly enlarged. ICD or pacer leads identified within the right atrium. No doppler evidence for ASD. Mitral Valve Stable appearing mechanical mitral valve apparatus. MIld (1+) transvalvular insufficiency of the mitral valve. Tricuspid Valve Normal tricuspid valve. Mild tricuspid valve insufficiency. Right ventricular systolic pressure estimated to be 33 mmHg. Aortic Valve Trisinus/trileaflet aortic valve. Mild focal aortic valve thickening. Mild-Moderate (1-2+) aortic valve insufficiency. Pulmonic Valve The pulmonic valve is not well visualized. Trivial pulmonic valve insufficiency. Great Vessels Normal sized aortic root. Pericardium/Pleural No pericardial effusion. MMode/2D Measurements & Calculations LVIDd: 4.3 cm IVSd: 1.3 cm Ao root diam: 3.1 cm LVIDs: 2.8 cm LVPWd: 0.94 cm LA dimension: 4.1 cm RVDd: 4.6 cm FS: 34.1 % LAV(MOD-bp): 48.8 ml LA A4 area: 15.0 cm2 RA A4 area: 12.9 cm2 LAV(MOD-bp) Indexed: 29.9 ml/m2 LAV(MOD-sp2): 57.6 ml LAV(MOD-sp4): 38.6 ml Time Measurements MV dec time: 0.13 sec Doppler Measurements & Calculations MV E max jozef: 138.0 cm/sec Lat Peak E' Jozef: 12.4 cm/sec Med Peak E' Jozef: 5.6 cm/sec MV A max jozef: 150.4 cm/sec E/E' lat: 11.1 E/E' med: 24.6 MV E/A: 0.92 MV V2 max: 170.5 cm/sec MV P1/2t max jozef: 154.1 cm/sec Ao V2 max: 176.3 cm/sec MV max P.6 mmHg MV P1/2t: 83.6 msec Ao max P.4 mmHg MV V2 mean: 110.7 cm/sec MV dec slope: 540.1 cm/sec2 Ao V2 mean: 116.2 cm/sec MV mean P.3 mmHg MVA(P1/2t): 2.6 cm2 Ao mean P.1 mmHg MV V2 VTI: 45.3 cm Ao V2 VTI: 31.1 cm AI max jozef: 436.1 cm/sec LV V1 max: 132.6 cm/sec PA V2 max: 100.0 cm/sec AI max P.1 mmHg LV V1 max P.0 mmHg AI dec slope: 316.8 cm/sec2 AI P1/2t: 403.2 msec TR max jozef: 250.4 cm/sec TR max P.1 mmHg Interpretation Summary The study was technically difficult. Left ventricular systolic function is normal. The estimated ejection fraction is 65 %. The left atrium is mildly enlarged. The right atrium is mildly enlarged. Stable appearing mechanical mitral valve apparatus. MIld (1+) transvalvular insufficiency of the mitral valve. Mild tricuspid valve insufficiency. Mild focal aortic valve thickening. Mild-Moderate (1-2+) aortic valve insufficiency. Trivial pulmonic valve insufficiency. Right ventricular systolic pressure estimated to be 33 mmHg. Transmitral doppler flow suggestive of impaired relaxation of left ventricle ICD or pacer leads identified within the right atrium ICD or pacer leads identified within the right ventricle. Ordering Physician: Samir Medina Referring Physician: Jono Cifuentes Performed By: Jeannine Mcqueen, RDVANDANA, RVT
--- NOTE | 2017-09-29 11:30 | CON.PCM_ITS ---
Problem List (1) H/O mitral valve replacement with mechanical valve Status: Chronic Comment: 27mm mechanical St. Sharan Mitral Valve prosthesis (2) Nonrheumatic aortic (valve) insufficiency Status: Chronic (3) Paroxysmal atrial fibrillation Status: Chronic (4) Presence of permanent cardiac pacemaker Status: Chronic (5) Hyperlipidemia Status: Chronic (6) HTN (hypertension) Status: Chronic Qualifiers: (7) Alcohol abuse Status: Chronic Reason for Consult Date of Consultation: 09/29/17 History of Present Illness: The patient is a 57 year old M [] Past Medical History Allergies/Adverse Reactions: Allergies metronidazole Allergy (Verified 09/28/17 14:06) Unknown ibuprofen Adverse Reaction (Verified 09/28/17 14:06) Upset Stomach naproxen [From Aleve] Adverse Reaction (Verified 09/28/17 14:06) gi upset Home Medications: Ambulatory Orders Medication Instructions Recorded Acamprosate Calcium 666 mg PO TID 08/18/17 Ascorbic Acid [Vitamin C] 1,000 mg PO BID 08/18/17 Atorvastatin Calcium [Lipitor] 20 mg PO QHS 08/18/17 Carvedilol [Coreg] 3.125 mg PO BID 08/18/17 Donepezil HCl [Aricept] 10 mg PO QHS 08/18/17 Ferrous Sulfate 325 mg PO DAILY@0800 08/18/17 Finasteride [Proscar] 5 mg PO DAILY 08/18/17 Furosemide [Lasix] 40 mg PO BIDLX 08/18/17 Lisinopril [Zestril] 5 mg PO DAILY 08/18/17 Multivitamin/Iron/Folic Acid 1 each PO DAILY 08/18/17 [Centrum Adults Tablet] Omeprazole 40 mg PO DAILY 08/18/17 Oxybutynin [Ditropan] 5 mg PO TID 08/18/17 Paroxetine HCl [Paxil] 50 mg PO DAILY 08/18/17 Pramipexole Di-HCl [Mirapex] 0.5 mg PO DAILY 08/18/17 Pregabalin [Lyrica] 75 mg PO TID 08/18/17 Sennosides [Natural Laxative] 1 tab PO BID 08/18/17 Thiamine Mononitrate [Vitamin B-1] 100 mg PO DAILY 08/18/17 Trazodone HCl 300 mg PO QHS 08/18/17 Warfarin [Coumadin ([facility])] 7.5 mg PO TUTHSA 08/18/17 Warfarin [Coumadin ([facility])] 10 mg PO SUMOWEFR 08/18/17 Past Medical History (Chronic Problems): Chronic Problems (Last Updated 09/28/17 @ 18:34 by Mike Cardona MD) Alcohol abuse (Chronic) H/O mitral valve replacement with mechanical valve (Chronic ~2009) 27mm [address] Sharan Mitral Valve prosthesis Nonrheumatic aortic (valve) insufficiency (Chronic) Hyperlipidemia (Chronic) Presence of permanent cardiac pacemaker (Chronic) Paroxysmal atrial fibrillation (Chronic) HTN (hypertension) (Chronic) Surgical History: - - mechanical mitral valve neck surgery, back surgery, right hip pinned. Psychiatric History: Anxiety - *Family History Maternal Family History: Family History (Last Reviewed 07/12/17 @ 16:07 by Valerie Pedroza) Mother Heart disease Father Heart disease CVA (cerebral vascular accident) Brother Heart disease Diabetes Sister Heart disease History Items: Cancer Paternal Family History: Family History (Last Reviewed 07/12/17 @ 16:07 by Valerie Pedroza) Mother Heart disease Father Heart disease CVA (cerebral vascular accident) Brother Heart disease Diabetes Sister Heart disease History Items: - - Father with history of blood clot, unclear type. Sibling Family History: Family History (Last Reviewed 07/12/17 @ 16:07 by Valerie Pedroza) Mother Heart disease Father Heart disease CVA (cerebral vascular accident) Brother Heart disease Diabetes Sister Heart disease History Items: No pertinent history Smoking Status: Current every day smoker Alcohol: Heavy Drugs: None Review of Systems - Review of Systems General: Denies: Fever, Night Sweats, Fatigue Cardiovascular: Denies: Chest Discomfort, Shortness of Breath, Orthopnea, PND, Peripheral Edema, Palpitations, Lightheadedness, Dizziness, Near Syncope, Syncope Respiratory: Denies: Cough, Sputum Production, Hemoptysis Gastrointestinal: Denies: Hematemesis, Hematochezia, Melena Genitourinary: Denies: Dysuria, Hematuria Skin: Denies: Rash Objective: Vital Signs Temp Pulse Resp BP Pulse Ox 97.4 F L 97 18 111/59 L 95 09/29/17 10:00 09/29/17 10:00 09/29/17 10:00 09/29/17 10:00 09/29/17 10:00 Oxygen Delivery Method Room Air Weight: 134 lb 4.184 oz Body Mass Index (BMI) 23.8 Intake and Output for Last 24 Hours 09/27/17 09/28/17 09/29/17 23:59 23:59 23:59 Intake Total 666.7 / 666.7 294.4 / 294.4 Balance 666.7 / 666.7 294.4 / 294.4 09/29/17 01:00: APTT 77.3 H 09/29/17 06:54: WBC 5.1, RBC 3.81 L, Hgb 12.5 L, Hct 36.3 L, MCV 95.3 H, MCH 32.8 H, MCHC 34.4, RDW 13.9, RDW Differential 47.4 H, Plt Count 123 L, MPV 9.8, Immature Gran % (Auto) 0.000, Neut % (Auto) 62.5, Lymph % (Auto) 21.6, [place] % ( Auto) 9.2, Eos % (Auto) 6.5 H, Baso % (Auto) 0.2, Absolute Neuts (auto) 3.2, Total Counted Not Reportable 09/29/17 06:54: Sodium 139, Potassium 3.9, Chloride 106, Carbon Dioxide 26.0, Anion Gap 7, BUN 5 L, Creatinine 0.68 L, Est GFR (MDRD) Af Amer 153, Est GFR ( MDRD) Non-Af 126, BUN/Creatinine Ratio 7.3 L, Glucose 79, Calcium 7.8 L 09/29/17 06:54: PT 18.3 H, INR 1.5 09/29/17 06:54: APTT 66.8 H Rhythm: AV synchronous pacing EKG: ECHO:
--- NOTE | 2017-09-29 11:57 | CASEMGMT ---
Face to Face with patient for initial transition planning/care coordination assessment. JORGE CARD introduced self and role at [facility], pt voices understanding and consents to assessment at this time. Pt is sitting up in chair in no distress at this time. Pt is A/Ox4 at this time and answers all questions appropriately at this time. Care providers, pharmacy, and demographics verified. See attached link. Pt voices no further concerns/needs at this time. Advised pt to ask for CM if any further questions/concerns/needs arise, voices understanding. 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 PLAN: [place] JORGE CARD
--- NOTE | 2017-09-29 14:20 | PCM.PROGNOTE ---
<Sherley Camargo - Last Filed: 09/29/17 14:29> Subjective: Patient seen and examined. Resting in chair. Complains of abdominal cramping, diaphoresis, tremors. States he did sleep well last night. Denies nausea, vomiting, diarrhea. Denies chest pain, shortness of breath. Denies other current complaints. - Physical Exam General: Alert, Oriented x3, Cooperative HEENT: Atraumatic, PERRLA, EOMI, Normocephalic Neck: Supple, No JVD, Negative Carotid Bruits Lungs: Clear to auscultation, Diminished Cardiovascular: Regular rate, Regular Rhythm, Normal S1, Normal S2, Murmur Abdomen: Bowel Sounds Present, Soft, Non Tender, Non-Distended Extremities: No clubbing, No cyanosis, No edema, Capillary Refill Less than 3 Seconds Skin: No rashes, No breakdown Musculoskeletal: No Tenderness to Palpation of Joints or Extremities Neurological: Cranial nerves II-XII grossly intact, Neuro grossly intact Psych/Mental Status: Normal Affect, Appropriate Vital Signs Temp Pulse Resp BP Pulse Ox 97.4 F L 80 18 111/59 L 95 09/29/17 10:00 09/29/17 12:19 09/29/17 10:00 09/29/17 10:00 09/29/17 10:00 Oxygen Delivery Method Room Air Weight: 60.9 kg Body Mass Index (BMI) 23.8 Intake and Output for Last 24 Hours 09/27/17 09/28/17 09/29/17 23:59 23:59 23:59 Intake Total 666.7 / 666.7 794.4 / 794.4 Balance 666.7 / 666.7 794.4 / 794.4 Laboratory Tests Past 24 Hrs 09/29/17 09/29/17 09/29/17 01:00 06:54 06:54 WBC 5.1 RBC 3.81 L Hgb 12.5 L Hct 36.3 L MCV 95.3 H MCH 32.8 H MCHC 34.4 RDW 13.9 RDW Differential 47.4 H Plt Count 123 L MPV 9.8 Immature Gran % (Auto) 0.000 Neut % (Auto) 62.5 Lymph % (Auto) 21.6 Hodgeman % (Auto) 9.2 Eos % (Auto) 6.5 H Baso % (Auto) 0.2 Absolute Neuts (auto) 3.2 Absolute Lymphs (auto) 1.10 Total Counted Not Reportable PT INR APTT 77.3 H Sodium 139 Potassium 3.9 Chloride 106 Carbon Dioxide 26.0 Anion Gap 7 BUN 5 L Creatinine 0.68 L Estim Creat Clear Calc 94.14 Est GFR (MDRD) Af Amer 153 Est GFR (MDRD) Non-Af 126 BUN/Creatinine Ratio 7.3 L Glucose 79 Calcium 7.8 L 09/29/17 09/29/17 06:54 06:54 WBC RBC Hgb Hct MCV MCH MCHC RDW RDW Differential Plt Count MPV Immature Gran % (Auto) Neut % (Auto) Lymph % (Auto) Hodgeman % (Auto) Eos % (Auto) Baso % (Auto) Absolute Neuts (auto) Absolute Lymphs (auto) Total Counted PT 18.3 H INR 1.5 APTT 66.8 H Sodium Potassium Chloride Carbon Dioxide Anion Gap BUN Creatinine Estim Creat Clear Calc Est GFR (MDRD) Af Amer Est GFR (MDRD) Non-Af BUN/Creatinine Ratio Glucose Calcium Medical Necessity - Tobacco Use Smoking Status: Current every day smoker Assessment/Plan Patient is a 57-year-old male admitted 09/28/2017 due to alcohol withdrawal. He has a past medical history of chronic alcohol abuse, mitral valve replacement with mechanical valve, hyperlipidemia, status post permanent cardiac pacemaker, paroxysmal atrial fibrillation, hypertension, BPH. 1. Subtherapeutic INR with underlying mechanical mitral valve replacement and paroxysmal atrial fibrillation-patient quit taking Coumadin due to alcohol use. Coumadin resumed. Continue heparin drip. Rate controlled. Cardiology consulted. Echocardiogram completed and results pending. 2. Acute alcohol withdrawal on chronic alcohol abuse- CIWA protocol. Continue thiamine, folic acid, multivitamin supplementation. 3. Hypertension-stable, continue current regimen. 4. Hyperlipidemia-continue statin. 5. BPH-continue home regimen. 6. Status post pacemaker DVT prophylaxis-heparin drip, Coumadin This patient was seen by BALBIR Garcia under the supervision of Dr. Nava. <Dean Nava - Last Filed: 09/29/17 16:36> - Physical Exam Vital Signs Temp Pulse Resp BP Pulse Ox 98.2 F 73 16 145/74 H 97 09/29/17 14:00 09/29/17 14:00 09/29/17 14:00 09/29/17 14:00 09/29/17 14:00 Oxygen Delivery Method Room Air Weight: 60.9 kg Body Mass Index (BMI) 23.8 Intake and Output for Last 24 Hours 09/27/17 09/28/17 09/29/17 23:59 23:59 23:59 Intake Total 666.7 / 666.7 794.4 / 794.4 Balance 666.7 / 666.7 794.4 / 794.4 Laboratory Tests Past 24 Hrs 09/29/17 09/29/17 09/29/17 01:00 06:54 06:54 WBC 5.1 RBC 3.81 L Hgb 12.5 L Hct 36.3 L MCV 95.3 H MCH 32.8 H MCHC 34.4 RDW 13.9 RDW Differential 47.4 H Plt Count 123 L MPV 9.8 Immature Gran % (Auto) 0.000 Neut % (Auto) 62.5 Lymph % (Auto) 21.6 Hodgeman % (Auto) 9.2 Eos % (Auto) 6.5 H Baso % (Auto) 0.2 Absolute Neuts (auto) 3.2 Absolute Lymphs (auto) 1.10 Total Counted Not Reportable PT INR APTT 77.3 H Sodium 139 Potassium 3.9 Chloride 106 Carbon Dioxide 26.0 Anion Gap 7 BUN 5 L Creatinine 0.68 L Estim Creat Clear Calc 94.14 Est GFR (MDRD) Af Amer 153 Est GFR (MDRD) Non-Af 126 BUN/Creatinine Ratio 7.3 L Glucose 79 Calcium 7.8 L 09/29/17 09/29/17 09/29/17 06:54 06:54 15:03 WBC RBC Hgb Hct MCV MCH MCHC RDW RDW Differential Plt Count MPV Immature Gran % (Auto) Neut % (Auto) Lymph % (Auto) Hodgeman % (Auto) Eos % (Auto) Baso % (Auto) Absolute Neuts (auto) Absolute Lymphs (auto) Total Counted PT 18.3 H INR 1.5 APTT 66.8 H 71.7 H Sodium Potassium Chloride Carbon Dioxide Anion Gap BUN Creatinine Estim Creat Clear Calc Est GFR (MDRD) Af Amer Est GFR (MDRD) Non-Af BUN/Creatinine Ratio Glucose Calcium Assessment/Plan This patient was seen in conjunction with BALBIR Garcia. I have independently interviewed and examined the patient and reviewed pertinent historical, laboratory, and other data. Please refer to BALBIR Garcia note for details of this patient's presentation, findings, and recommendations. I have reviewed BALBIR Garcia note and concur with documented findings. In brief, patient is an 57 -year-old M with history of mechanical mitral valve replacement and paroxysmal atrial fibrillation- admitted with subtherapeutic INR and acute alcohol withdrawal Physical Examination: GENERAL: Tremulous HEENT: Clear conjunctiva, NECK; supple, normal thyroid, CHEST: Diminished to auscultation bilaterally, HEART: Regular S1 S2, no audible murmurs ABDOMEN: soft, normoactive bowel sounds, ACCOUNTS RECEIVABLE ASSOCIATE: Awake; no lateralizing signs. SKIN: No Rash Assessment: 1. History of mechanical mitral valve replacement and paroxysmal atrial fibrillation on systemic anticoagulation with Coumadin presented with subtherapeutic INR 2. Alcohol withdrawal 3. Dyslipidemia 4. Hypertension 9. Conduction system disorder status post pacemaker placement 10. DVT prophylaxis on systemic anticoagulation Recommendations: 1. I have discussed the results of my overview and impressions with the patient 2. Options for management were reviewed Code Visit Inpatient E&M: 52478 Subs Hosp L3
[2017-09-29 15:25] LABS: Partial Thromboplast Time 71.7 Seconds (24.1-36.2)
--- NOTE | 2017-09-29 15:57 | CHAPLAIN ---
patient was sleeping
[2017-09-29] MEDS: Atorvastatin Calcium 20 MG Tablet PO (22:32)
[2017-09-29] MEDS: Donepezil HCl 10 MG Tablet PO (22:32)
[2017-09-29] MEDS: traZODone 100 MG Tablet 300 MG PO (22:33)
[2017-09-30] VITALS (13 sets, daily range): BP systolic 113–156; BP diastolic 68–86; PULSE 66–96; RESP 14–18; TEMP 36.4–37.1; O2SAT 93–98
[2017-09-30] MEDS: Acetaminophen 325 MG Tablet 650 MG PO ×2 (06:38→21:07)
[2017-09-30] MEDS: Oxybutynin 5 MG Tablet PO ×3 (06:39→21:06)
[2017-09-30] MEDS: Pregabalin 75 MG Capsule PO ×3 (06:39→21:11)
[2017-09-30 08:08] LABS: International Normalized Ratio 1.7; Prothrombin Time (Protime)PT. 19.6 SECONDS (11.7-14.9)
[2017-09-30] MEDS: Folic Acid 1 MG Tablet PO (08:22)
[2017-09-30] MEDS: Ferrous Sulfate 325 MG Tablet PO (08:22)
[2017-09-30] MEDS: Carvedilol 3.125 MG TABLET PO ×2 (08:23→21:06)
[2017-09-30] MEDS: Pantoprazole Sodium 40 MG Tablet PO (08:23)
[2017-09-30] MEDS: Thiamine Hydrochloride 100 MG Tablet PO (08:23)
[2017-09-30] MEDS: Furosemide 40 MG Tablet PO ×2 (08:23→17:11)
[2017-09-30] MEDS: Pramipexole Di-HCl 0.5 MG Tablet PO (08:24)
[2017-09-30] MEDS: Finasteride 5 MG Tablet PO (08:25)
[2017-09-30] MEDS: Senna Tablet 1 TABLET PO ×2 (08:26→21:07)
[2017-09-30] MEDS: Lisinopril 5 MG Tablet PO (08:26)
[2017-09-30] MEDS: traMADol 50 MG Tablet PO (09:42)
--- NOTE | 2017-09-30 12:12 | PCM.PN.BLA ---
Progress Note No complaints. Sitting up in chair. Echo report noted. Continue heparin infusion until INR is therapeutic. Target INR 2.5-3.5 Discussed with patient. Must stop alcohol abuse. Understands and agrees
--- NOTE | 2017-09-30 12:37 | PCM.PROGNOTE ---
<Sherley Camargo - Last Filed: 09/30/17 12:42> Subjective: Patient seen and examined. Resting in chair, no acute distress. Denies current complaints. - Physical Exam General: Alert, Oriented x3, Cooperative HEENT: Atraumatic, PERRLA, EOMI, Normocephalic Neck: Supple, No JVD, Negative Carotid Bruits Lungs: Clear to auscultation, Diminished Cardiovascular: Regular rate, Regular Rhythm, Normal S1, Normal S2, Murmur Abdomen: Bowel Sounds Present, Soft, Non Tender, Non-Distended Extremities: No clubbing, No cyanosis, No edema, Capillary Refill Less than 3 Seconds Skin: No rashes, No breakdown Musculoskeletal: No Tenderness to Palpation of Joints or Extremities Neurological: Cranial nerves II-XII grossly intact, Neuro grossly intact Psych/Mental Status: Normal Affect, Appropriate Vital Signs Temp Pulse Resp BP Pulse Ox 97.6 F L 95 18 141/79 H 96 09/30/17 08:10 09/30/17 11:00 09/30/17 08:10 09/30/17 08:10 09/30/17 11:08 Oxygen Delivery Method Room Air Weight: 60.9 kg Body Mass Index (BMI) 23.8 Intake and Output for Last 24 Hours 09/28/17 09/29/17 09/30/17 23:59 23:59 23:59 Intake Total 666.7 / 666.7 1765.6 / 1765.6 282.5 / 282.5 Output Total 1500 / 1500 750 / 750 Balance 666.7 / 666.7 265.6 / 265.6 -467.5 / -467.5 Laboratory Tests Past 24 Hrs 09/29/17 09/30/17 15:03 07:30 PT 19.6 H INR 1.7 APTT 71.7 H 68.0 H Medical Necessity - Tobacco Use Smoking Status: Current every day smoker Assessment/Plan Patient is a 57-year-old male admitted 09/28/2017 due to alcohol withdrawal. He has a past medical history of chronic alcohol abuse, mitral valve replacement with mechanical valve, hyperlipidemia, status post permanent cardiac pacemaker, paroxysmal atrial fibrillation, hypertension, BPH. 1. Subtherapeutic INR with underlying mechanical mitral valve replacement and paroxysmal atrial fibrillation-patient quit taking Coumadin due to alcohol use. Coumadin resumed. Continue heparin drip pending goal INR of 2.5-3.5. Rate controlled. Cardiology consulted. Echocardiogram showed an ejection fraction of 65%, stable appearing mechanical mitral valve apparatus. 2. Acute alcohol withdrawal on chronic alcohol abuse- CIWA protocol. Continue thiamine, folic acid, multivitamin supplementation. 3. Hypertension-stable, continue current regimen. 4. Hyperlipidemia-continue statin. 5. BPH-continue home regimen. 6. Status post pacemaker DVT prophylaxis-heparin drip, Coumadin This patient was seen by BALBIR Garcia under the supervision of Dr. Nava. <Dean Nava - Last Filed: 09/30/17 13:48> - Physical Exam Vital Signs Temp Pulse Resp BP Pulse Ox 98.8 F 77 18 129/68 H 94 09/30/17 12:30 09/30/17 12:30 09/30/17 12:30 09/30/17 12:30 09/30/17 12:30 Oxygen Delivery Method Room Air Weight: 60.9 kg Body Mass Index (BMI) 23.8 Intake and Output for Last 24 Hours 09/28/17 09/29/17 09/30/17 23:59 23:59 23:59 Intake Total 666.7 / 666.7 1765.6 / 1765.6 740.7 / 740.7 Output Total 1500 / 1500 750 / 750 Balance 666.7 / 666.7 265.6 / 265.6 -9.3 / -9.3 Laboratory Tests Past 24 Hrs 09/29/17 09/30/17 15:03 07:30 PT 19.6 H INR 1.7 APTT 71.7 H 68.0 H Assessment/Plan This patient was seen in conjunction with BALBIR Garcia. I have independently interviewed and examined the patient and reviewed pertinent historical, laboratory, and other data. Please refer to BALBIR Garcia note for details of this patient's presentation, findings, and recommendations. I have reviewed BALBIR Garcia note and concur with documented findings. In brief, patient is an 57 -year-old M with history of mechanical mitral valve replacement and paroxysmal atrial fibrillation- admitted with subtherapeutic INR and acute alcohol withdrawal 09/30/2017: Patient seen had a relatively uneventful night INR still remains subtherapeutic Physical Examination: GENERAL: Tremulous HEENT: Clear conjunctiva, NECK; supple, normal thyroid, CHEST: Diminished to auscultation bilaterally, HEART: Regular S1 S2, no audible murmurs ABDOMEN: soft, normoactive bowel sounds, CRUDE OIL TREATER: Awake; no lateralizing signs. SKIN: No Rash Assessment: 1. History of mechanical mitral valve replacement and paroxysmal atrial fibrillation on systemic anticoagulation with Coumadin presented with subtherapeutic INR 2. Alcohol withdrawal 3. Dyslipidemia 4. Hypertension 9. Conduction system disorder status post pacemaker placement 10. DVT prophylaxis on systemic anticoagulation Recommendations: 1. I have discussed the results of my overview and impressions with the patient 2. Options for management were reviewed Code Visit Inpatient E&M: 49918 Subs Hosp L2
[2017-09-30] MEDS: LORazepam 1 MG Tablet 2 MG PO ×2 (13:03→21:08)
[2017-09-30] MEDS: Docusate Sodium 100 MG Capsule PO (17:11)
[2017-09-30] MEDS: Donepezil HCl 10 MG Tablet PO (21:05)
[2017-09-30] MEDS: Atorvastatin Calcium 20 MG Tablet PO (21:08)
[2017-09-30] MEDS: traZODone 100 MG Tablet 300 MG PO (23:03)
[2017-10-01] VITALS (11 sets, daily range): BP systolic 111–154; BP diastolic 66–97; PULSE 83–108; RESP 16–18; TEMP 36.4–37.2; O2SAT 96–98
[2017-10-01 05:50] LABS: International Normalized Ratio 1.7; Prothrombin Time (Protime)PT. 19.7 SECONDS (11.7-14.9)
[2017-10-01 05:51] LABS: Partial Thromboplast Time 60.1 Seconds (24.1-36.2)
[2017-10-01] MEDS: Oxybutynin 5 MG Tablet PO ×3 (05:58→22:09)
[2017-10-01] MEDS: 0.9% NaCl Peripheral Flush Adult/Peds IV (05:58)
[2017-10-01] MEDS: Pregabalin 75 MG Capsule PO ×3 (05:58→22:08)
[2017-10-01] MEDS: Acetaminophen 325 MG Tablet 650 MG PO (06:00)
[2017-10-01] MEDS: LORazepam 1 MG Tablet 2 MG PO ×3 (06:00→22:15)
[2017-10-01] MEDS: Folic Acid 1 MG Tablet PO (08:07)
[2017-10-01] MEDS: Thiamine Hydrochloride 100 MG Tablet PO (08:08)
[2017-10-01] MEDS: Carvedilol 3.125 MG TABLET PO ×2 (08:08→22:08)
[2017-10-01] MEDS: Ferrous Sulfate 325 MG Tablet PO (08:08)
[2017-10-01] MEDS: Furosemide 40 MG Tablet PO ×2 (08:08→18:11)
[2017-10-01] MEDS: Pramipexole Di-HCl 0.5 MG Tablet PO (08:09)
[2017-10-01] MEDS: Finasteride 5 MG Tablet PO (08:10)
[2017-10-01] MEDS: Senna Tablet 1 TABLET PO ×2 (08:10→22:08)
[2017-10-01] MEDS: Pantoprazole Sodium 40 MG Tablet PO (08:10)
[2017-10-01] MEDS: Lisinopril 5 MG Tablet PO (08:10)
--- NOTE | 2017-10-01 09:49 | PCM.PROGNOTE ---
<Sherley Camargo - Last Filed: 10/01/17 09:51> Subjective: Patient seen and examined. Complains of anxiety. Wishes to go home. States he wants to smoke a cigarette. Requesting to go home on Lovenox as he states he has done this before when INR has been subtherapeutic. Given history of noncompliance, I do not feel this is appropriate at this time. Discussed with patient. No other complaints. - Physical Exam General: Alert, Oriented x3, Cooperative HEENT: Atraumatic, PERRLA, EOMI, Normocephalic Neck: Supple, No JVD, Negative Carotid Bruits Lungs: Clear to auscultation, Normal air movement Cardiovascular: Regular Rhythm, Normal S1, Normal S2, No murmurs, Tachycardic Abdomen: Bowel Sounds Present, Soft, Non Tender, Non-Distended Extremities: No clubbing, No cyanosis, No edema, Capillary Refill Less than 3 Seconds Skin: No rashes, No breakdown Musculoskeletal: No Tenderness to Palpation of Joints or Extremities Neurological: Cranial nerves II-XII grossly intact, Neuro grossly intact Psych/Mental Status: Normal Affect, Appropriate Vital Signs Temp Pulse Resp BP Pulse Ox 98.6 F 102 H 18 154/79 H 96 10/01/17 08:00 10/01/17 08:00 10/01/17 08:00 10/01/17 08:00 10/01/17 08:00 Oxygen Delivery Method Room Air Weight: 60.9 kg Body Mass Index (BMI) 23.8 Intake and Output for Last 24 Hours 09/29/17 09/30/17 10/01/17 23:59 23:59 23:59 Intake Total 1765.6 / 1765.6 1259.7 / 1259.7 888 / 888 Output Total 1500 / 1500 750 / 750 Balance 265.6 / 265.6 509.7 / 509.7 888 / 888 Laboratory Tests Past 24 Hrs 10/01/17 05:09 PT 19.7 H INR 1.7 APTT 60.1 H Medical Necessity - Tobacco Use Smoking Status: Current every day smoker Assessment/Plan Patient is a 57-year-old male admitted 09/28/2017 due to alcohol withdrawal. He has a past medical history of chronic alcohol abuse, mitral valve replacement with mechanical valve, hyperlipidemia, status post permanent cardiac pacemaker, paroxysmal atrial fibrillation, hypertension, BPH. 1. Subtherapeutic INR with underlying mechanical mitral valve replacement and paroxysmal atrial fibrillation-patient quit taking Coumadin due to alcohol use. Coumadin resumed. Continue heparin drip pending goal INR of 2.5-3.5. Rate controlled. Cardiology consulted. Echocardiogram showed an ejection fraction of 65%, stable appearing mechanical mitral valve apparatus. Patient wishes to be discharged on Lovenox. Do not feel this is appropriate given history of noncompliance. 2. Acute alcohol withdrawal on chronic alcohol abuse- CIWA protocol. Continue thiamine, folic acid, multivitamin supplementation. 3. Hypertension-stable, continue current regimen. 4. Hyperlipidemia-continue statin. 5. BPH-continue home regimen. 6. Status post pacemaker DVT prophylaxis-heparin drip, Coumadin This patient was seen by BALBIR Garcia under the supervision of Dr. Nava. <Dean Nava - Last Filed: 10/01/17 11:43> - Physical Exam Vital Signs Temp Pulse Resp BP Pulse Ox 98.6 F 102 H 18 154/79 H 96 10/01/17 08:00 10/01/17 08:00 10/01/17 08:00 10/01/17 08:00 10/01/17 08:00 Oxygen Delivery Method Room Air Weight: 60.9 kg Body Mass Index (BMI) 23.8 Intake and Output for Last 24 Hours 09/29/17 09/30/17 10/01/17 23:59 23:59 23:59 Intake Total 1765.6 / 1765.6 1259.7 / 1259.7 888 / 888 Output Total 1500 / 1500 750 / 750 Balance 265.6 / 265.6 509.7 / 509.7 888 / 888 Laboratory Tests Past 24 Hrs 10/01/17 05:09 PT 19.7 H INR 1.7 APTT 60.1 H Assessment/Plan This patient was seen in conjunction with BALBIR Garcia. I have independently interviewed and examined the patient and reviewed pertinent historical, laboratory, and other data. Please refer to BALBIR Garcia note for details of this patient's presentation, findings, and recommendations. I have reviewed BALBIR Garcia note and concur with documented findings. In brief, patient is an 57 -year-old M with history of mechanical mitral valve replacement and paroxysmal atrial fibrillation- admitted with subtherapeutic INR and acute alcohol withdrawal 09/30/2017: Patient seen had a relatively uneventful night INR still remains subtherapeutic 10/01/2017; Patient INR still remains subtherapeutic. Patient did express the desire to be discharged home however with patient being noncompliant with therapy decision was made to keep patient until INR becomes therapeutic. Physical Examination: GENERAL: Tremulous HEENT: Clear conjunctiva, NECK; supple, normal thyroid, CHEST: Diminished to auscultation bilaterally, HEART: Regular S1 S2, no audible murmurs ABDOMEN: soft, normoactive bowel sounds, NEWSPAPER MANAGER: Awake; no lateralizing signs. SKIN: No Rash Assessment: 1. History of mechanical mitral valve replacement and paroxysmal atrial fibrillation on systemic anticoagulation with Coumadin presented with subtherapeutic INR 2. Alcohol withdrawal 3. Dyslipidemia 4. Hypertension 9. Conduction system disorder status post pacemaker placement 10. DVT prophylaxis on systemic anticoagulation Recommendations: 1. I have discussed the results of my overview and impressions with the patient 2. Options for management were reviewed Code Visit Inpatient E&M: 85068 Subs Hosp L2
[2017-10-01 12:06] LABS: Magnesium 1.7 mg/dL (1.6-2.6)
[2017-10-01] MEDS: Calcium Carbonate 500 MG Tablet 1000 MG PO (20:16)
[2017-10-01] MEDS: Atorvastatin Calcium 20 MG Tablet PO (22:08)
[2017-10-01] MEDS: Donepezil HCl 10 MG Tablet PO (22:09)
[2017-10-01] MEDS: traZODone 100 MG Tablet 300 MG PO (22:10)
[2017-10-02] MEDS: Acetaminophen 325 MG Tablet 650 MG PO (01:57)
[2017-10-02 03:14] VITALS: PULSE 92
[2017-10-02] MEDS: LORazepam 1 MG Tablet 2 MG PO ×2 (04:03→10:49)
[2017-10-02 04:20] VITALS: BP 119/88; PULSE 96; RESP 16; TEMP 37.1; O2SAT 96
[2017-10-02] MEDS: Oxybutynin 5 MG Tablet PO ×2 (06:09→13:41)
[2017-10-02] MEDS: Pregabalin 75 MG Capsule PO ×2 (06:09→13:41)
[2017-10-02 06:31] LABS: Hematocrit 41.4 % (40-54); Mean Corp Hgb Conc 33.8 g/gl (32-36); Mean Corpuscular Volume 97.6 fL (80-94); Mean Platelet Vol. 10.9 fl (6.2-12.0); Platelet Count 143 K/mm3 (150-450); RBC Distribution Width CV 14.1 % (11.6-14.6); RBC Distribution Width SD 49.3 fl (35.1-43.9); Red Blood Count 4.24 M/mm3 (4.6-6.2); White Blood Count 6.9 K/mm3 (4.4-11.0)
[2017-10-02 06:35] LABS: Scan Indicated on CBC? Y/N NO
[2017-10-02 06:45] LABS: Anion Gap 6 (5-15); BUN 11 mg/dL (7-18); BUN/Creat Ratio 11.7 RATIO (10-20); Calcium,Total 9.4 mg/dL (8.5-10.1); Chloride 97 mmol/L (98-107); Creatinine, Serum 0.94 mg/dL (0.70-1.30); EST Glomerular Filtration Rate 87 mL/min (>60); Est Glom Filt Rate - Afr Amer 105 mL/min (>60); Glucose 98 mg/dL (74-106); Potassium 4.4 mmol/L (3.5-5.1); Sodium Level 136 mmol/L (136-145)
[2017-10-02 06:55] VITALS: PULSE 93
[2017-10-02 07:05] LABS: Prothrombin Time (Protime)PT. 22.8 SECONDS (11.7-14.9)
[2017-10-02 07:07] LABS: Partial Thromboplast Time 68.1 Seconds (24.1-36.2)
[2017-10-02 08:00] VITALS: BP 119/75; PULSE 91; RESP 18; TEMP 37.1; O2SAT 97
[2017-10-02] MEDS: Ferrous Sulfate 325 MG Tablet PO (08:02)
[2017-10-02] MEDS: Pramipexole Di-HCl 0.5 MG Tablet PO (08:03)
[2017-10-02] MEDS: Carvedilol 3.125 MG TABLET PO (08:03)
[2017-10-02] MEDS: Thiamine Hydrochloride 100 MG Tablet PO (08:03)
[2017-10-02] MEDS: Folic Acid 1 MG Tablet PO (08:03)
[2017-10-02] MEDS: Furosemide 40 MG Tablet PO (08:03)
[2017-10-02] MEDS: Pantoprazole Sodium 40 MG Tablet PO (08:04)
[2017-10-02] MEDS: Finasteride 5 MG Tablet PO (08:04)
[2017-10-02] MEDS: Lisinopril 5 MG Tablet PO (08:04)
[2017-10-02] MEDS: Senna Tablet 1 TABLET PO (08:04)
[2017-10-02 10:56] VITALS: PULSE 98
[2017-10-02 13:30] VITALS: BP 136/87; PULSE 116; RESP 18; TEMP 37; O2SAT 95
--- NOTE | 2017-10-02 13:31 | PCM.DC ---
- Discharge Diagnoses Current Active Problems: Current Active and Chronic Problems (Last Updated 09/28/17 @ 18:34 by Mike Cardona MD) Alcohol abuse (Chronic) You will use the following diet at home:: Cardiac Discharge Activity: Return to Normal Activity Call your doctor if you observe: Shortness of breath, Dizziness, Fainting spells, Chest pain, Calf discomfort Additional Instructions: Take Coumadin 10mg daily until further advised to resume previous Coumadin dosing. Have INR checked in 2 days. Continue Lovenox injections twice daily until INR is 3.0. Follow-up with Dr. Medina for further monitoring of INR. Allergies/Adverse Reactions: Allergies metronidazole Allergy (Verified 09/28/17 14:06) Unknown ibuprofen Adverse Reaction (Verified 09/28/17 14:06) Upset Stomach naproxen [From Aleve] Adverse Reaction (Verified 09/28/17 14:06) gi upset Medications to take at Discharge Acamprosate Calcium 666 mg PO TID 08/18/17 Ascorbic Acid [Vitamin C] 1,000 mg PO BID 08/18/17 Atorvastatin Calcium [Lipitor] 20 mg PO QHS 08/18/17 Carvedilol [Coreg (Beta Brock)] 3.125 mg PO BID 08/18/17 Donepezil HCl [Aricept] 10 mg PO QHS 08/18/17 Ferrous Sulfate 325 mg PO DAILY@0800 08/18/17 Finasteride [Proscar] 5 mg PO DAILY 08/18/17 Furosemide [Lasix] 40 mg PO BIDLX 08/18/17 Lisinopril [Zestril] 5 mg PO DAILY 08/18/17 Multivitamin/Iron/Folic Acid [Centrum Adults Tablet] 1 each PO DAILY 08/18/17 Omeprazole 40 mg PO DAILY 08/18/17 Oxybutynin [Ditropan] 5 mg PO TID 08/18/17 Paroxetine HCl [Paxil] 50 mg PO DAILY 08/18/17 Pramipexole Di-HCl [Mirapex] 0.5 mg PO DAILY 08/18/17 Pregabalin [Lyrica] 75 mg PO TID 08/18/17 Sennosides [Natural Laxative] 1 tab PO BID 08/18/17 Thiamine Mononitrate [Vitamin B-1] 100 mg PO DAILY 08/18/17 Trazodone HCl 300 mg PO QHS 08/18/17 Warfarin [Coumadin] 10 mg PO SUMOWEFR 08/18/17 Enoxaparin [Lovenox] 60 mg SC Q12@0600,1800 #28 syringe 10/02/17 The following prescriptions were given: Enoxaparin [Lovenox] 60 mg SC Q12@0600,1800 #28 syringe Primary Care Physician: Josue Cifuentes MD [Primary Care Provider] - Please follow up with your Primary Care Physician in: 1 Week Test Results: Test results from this visit will be discussed in further detail at your follow-up appointment, if applicable. Please Follow Up With: Samir Medina MD When: 3 Days, please make appt with PA/RECORDING STUDIO INTERN prior to DC. Proposed Discharge Date: 10/02/17
--- NOTE | 2017-10-02 13:34 | DCINST_ITS ---
- Discharge Diagnoses Current Active Problems: Current Active and Chronic Problems (Last Updated 09/28/17 @ 18:34 by Mike Cardona MD) Alcohol abuse (Chronic) You will use the following diet at home:: Cardiac Discharge Activity: Return to Normal Activity Call your doctor if you observe: Shortness of breath, Dizziness, Fainting spells , Chest pain, Calf discomfort Additional Instructions: Take Coumadin 10mg daily until further advised to resume previous Coumadin dosing. Have INR checked in 2 days. Continue Lovenox injections twice daily until INR is 3.0. Follow-up with Dr. Medina for further monitoring of INR. Allergies/Adverse Reactions: Allergies metronidazole Allergy (Verified 09/28/17 14:06) Unknown ibuprofen Adverse Reaction (Verified 09/28/17 14:06) Upset Stomach naproxen [From Aleve] Adverse Reaction (Verified 09/28/17 14:06) gi upset Medications to take at Discharge Acamprosate Calcium 666 mg PO TID 08/18/17 Ascorbic Acid [Vitamin C] 1,000 mg PO BID 08/18/17 Atorvastatin Calcium [Lipitor] 20 mg PO QHS 08/18/17 Carvedilol [Coreg (Beta Brock)] 3.125 mg PO BID 08/18/17 Donepezil HCl [Aricept] 10 mg PO QHS 08/18/17 Ferrous Sulfate 325 mg PO DAILY@0800 08/18/17 Finasteride [Proscar] 5 mg PO DAILY 08/18/17 Furosemide [Lasix] 40 mg PO BIDLX 08/18/17 Lisinopril [Zestril] 5 mg PO DAILY 08/18/17 Multivitamin/Iron/Folic Acid [Centrum Adults Tablet] 1 each PO DAILY 08/18/17 Omeprazole 40 mg PO DAILY 08/18/17 Oxybutynin [Ditropan] 5 mg PO TID 08/18/17 Paroxetine HCl [Paxil] 50 mg PO DAILY 08/18/17 Pramipexole Di-HCl [Mirapex] 0.5 mg PO DAILY 08/18/17 Pregabalin [Lyrica] 75 mg PO TID 08/18/17 Sennosides [Natural Laxative] 1 tab PO BID 08/18/17 Thiamine Mononitrate [Vitamin B-1] 100 mg PO DAILY 08/18/17 Trazodone HCl 300 mg PO QHS 08/18/17 Warfarin [Coumadin] 10 mg PO SUMOWEFR 08/18/17 Enoxaparin [Lovenox] 60 mg SC Q12@0600,1800 #28 syringe 10/02/17 The following prescriptions were given: Enoxaparin [Lovenox] 60 mg SC Q12@0600,1800 #28 syringe Primary Care Physician: Josue Cifuentes MD [Primary Care Provider] - Please follow up with your Primary Care Physician in: 1 Week Test Results: Test results from this visit will be discussed in further detail at your follow- up appointment, if applicable. Please Follow Up With: Samir Medina MD When: 3 Days, please make appt with PA/MONUMENT SETTER prior to DC. Proposed Discharge Date: 10/02/17
--- NOTE | 2017-10-02 13:35 | PCM.DC.SUM ---
<Sherley Camargo - Last Filed: 10/02/17 13:42> Discharge Date and Diagnosis Date of Admission: 09/28/17 Date of Discharge: 10/02/17 - Primary Discharge Diagnosis 1. Subtherapeutic INR in the context of mechanical mitral valve replacement and paroxysmal atrial fibrillation 2. Acute alcohol withdrawal on chronic alcohol abuse - Secondary Discharge Diagnosis Chronic Problems (Last Updated 09/28/17 @ 18:34 by Mike Cardona MD) Alcohol abuse (Chronic) H/O mitral valve replacement with mechanical valve (Chronic ~2009) 27mm mechanical [employer] Mitral Valve prosthesis Nonrheumatic aortic (valve) insufficiency (Chronic) Hyperlipidemia (Chronic) Presence of permanent cardiac pacemaker (Chronic) Paroxysmal atrial fibrillation (Chronic) HTN (hypertension) (Chronic) Hospital Course and Treatment Dr. Kirkpatrick- Cardiology Operations: None Procedures: 2-D Echocardiogram Summary of Care Provided: Patient is a 57-year-old male admitted 09/28/2017 due to alcohol withdrawal. He has a past medical history of chronic alcohol abuse, mitral valve replacement with mechanical valve, hyperlipidemia, status post permanent cardiac pacemaker, paroxysmal atrial fibrillation, hypertension, BPH. 1. Subtherapeutic INR in the context of mechanical mitral valve replacement and paroxysmal atrial fibrillation-patient quit taking Coumadin due to alcohol use. Coumadin resumed. Patient was placed on heparin drip during admission. INR 2.0 at discharge. Patient wishes to be discharged with Lovenox injections. He states he has used Lovenox at home in the past to bridge Coumadin. Patient will be discharged with Lovenox 60 mg twice daily subcu which she will continue until INR reaches 3.0. Patient follows with Dr. Medina. Repeat INR in 2 days. Follow-up with Dr. Medina's office in 3 days. Echocardiogram showed an ejection fraction of 65%, stable appearing mechanical mitral valve apparatus. Patient will continue Coumadin 10 mg daily until further notified by cardiology to resume previous Coumadin dosing. 2. Acute alcohol withdrawal on chronic alcohol abuse-resolved. Continue outpatient follow-up. 3. Hypertension-stable, continue current regimen. 4. Hyperlipidemia-continue statin. 5. BPH-continue home regimen. 6. Status post pacemaker General: Alert, Oriented x3, Cooperative HEENT: Atraumatic, PERRLA, EOMI, Normocephalic Neck: Supple, No JVD, Negative Carotid Bruits Lungs: Clear to auscultation, Normal air movement Cardiovascular: Regular Rhythm, Normal S1, Normal S2, No murmurs, regular rate Abdomen: Bowel Sounds Present, Soft, Non Tender, Non-Distended Extremities: No clubbing, No cyanosis, No edema, Capillary Refill Less than 3 Seconds Skin: No rashes, No breakdown Musculoskeletal: No Tenderness to Palpation of Joints or Extremities Neurological: Cranial nerves II-XII grossly intact, Neuro grossly intact Psych/Mental Status: Normal Affect, Appropriate Patient seen exam prior to discharge. Physical assessment as noted above. Patient is stable for discharge home with the follow-up recommendations as noted above. This patient was seen by BALBIR Garcia under the supervision of Dr. Kevin. Discharge Diet: Low fat/ Low Cholesterol Discharge Activity: Return to Normal Activity Call your doctor if you observe: Shortness of breath, Dizziness, Fainting spells, Chest pain, Calf discomfort Home Medications: Medications to take at Discharge Acamprosate Calcium 666 mg PO TID 08/18/17 Ascorbic Acid [Vitamin C] 1,000 mg PO BID 08/18/17 Atorvastatin Calcium [Lipitor] 20 mg PO QHS 08/18/17 Carvedilol [Coreg (Beta Brock)] 3.125 mg PO BID 08/18/17 Donepezil HCl [Aricept] 10 mg PO QHS 08/18/17 Ferrous Sulfate 325 mg PO DAILY@0800 08/18/17 Finasteride [Proscar] 5 mg PO DAILY 08/18/17 Furosemide [Lasix] 40 mg PO BIDLX 08/18/17 Lisinopril [Zestril] 5 mg PO DAILY 08/18/17 Multivitamin/Iron/Folic Acid [Centrum Adults Tablet] 1 each PO DAILY 08/18/17 Omeprazole 40 mg PO DAILY 08/18/17 Oxybutynin [Ditropan] 5 mg PO TID 08/18/17 Paroxetine HCl [Paxil] 50 mg PO DAILY 08/18/17 Pramipexole Di-HCl [Mirapex] 0.5 mg PO DAILY 08/18/17 Pregabalin [Lyrica] 75 mg PO TID 08/18/17 Sennosides [Natural Laxative] 1 tab PO BID 08/18/17 Thiamine Mononitrate [Vitamin B-1] 100 mg PO DAILY 08/18/17 Trazodone HCl 300 mg PO QHS 08/18/17 Warfarin [Coumadin] 10 mg PO SUMOWEFR 08/18/17 Enoxaparin [Lovenox] 60 mg SC Q12@0600,1800 #28 syringe 10/02/17 Following Prescrptions Were Given to Patient: Enoxaparin [Lovenox] 60 mg SC Q12@0600,1800 #28 syringe Primary Care Physician: Josue Cifuentes MD [Primary Care Provider] - Please follow up with your Primary Care Physician in: 1 Week Please Follow Up With: Samir Medina MD When: 3 Days, please make appt with PA/PHYSICIAN INTENSIVIST prior to DC. Disposition: Home Minutes spent on discharge:: 35 Patient Condition:: Stable Medical Necessity - Tobacco Use Smoking Status: Current every day smoker Meaningful Use Info Meaningful Use Diagnoses (Choose all that apply): None applicable <Srinivasa Kevin - Last Filed: 10/02/17 14:20> Discharge Date and Diagnosis - Secondary Discharge Diagnosis Chronic Problems (Last Updated 09/28/17 @ 18:34 by Mike Cardona MD) Alcohol abuse (Chronic) H/O mitral valve replacement with mechanical valve (Chronic ~2009) 27mm mechanical [address] Sharan Mitral Valve prosthesis Nonrheumatic aortic (valve) insufficiency (Chronic) Hyperlipidemia (Chronic) Presence of permanent cardiac pacemaker (Chronic) Paroxysmal atrial fibrillation (Chronic) HTN (hypertension) (Chronic) Hospital Course and Treatment Operations: None Procedures: 2-D Echocardiogram Summary of Care Provided: Patient seen and examined independently. Data reviewed. I agree with the above note by the nurse practitioner. The patient is a 57 year old M presents with alcohol intoxication and stating that he is not taking his Coumadin in several days. Patient was started on a CIWA protocol. Patient stated that he went back to drinking after being sober for 4 years because he was slated and bumped out of a fishing trip to [place]. Patient understands that I was a bad decision and states that he will further follow-up with his catholic and as well as [facility] for support. Patient was reinforced on the importance of compliance with Coumadin and including and even stroke. Patient states that he would comply. She has been recommended patient that he have close follow-up and can have a goal INR of between 2.5-3.5 with preferable range of around 3 given the mitral does have. Patient was taking Coumadin's on alternating days of 7.5 and 10 mg. I recommend he be on 10 mg daily for the time being based on how his INR will play out. Patient on physical exam is in no acute distress and afebrile. Normal gait no ataxia. [] Discharge Diet: Low fat/ Low Cholesterol Discharge Activity: Return to Normal Activity Call your doctor if you observe: Shortness of breath, Dizziness, Fainting spells, Chest pain, Calf discomfort Disposition: Home Minutes spent on discharge:: 35 Patient Condition:: Stable Meaningful Use Info Meaningful Use Diagnoses (Choose all that apply): None applicable Code Visit Inpatient E&M: 49862 Disch Hosp
--- NOTE | 2017-10-02 13:50 | NURSING ---
hospital van to transport patient. pt to be downstairs at main entrance no later than 330 pm
--- NOTE | 2017-10-02 14:47 | CHAPLAIN ---
Type of Pastoral Visit _x__ Initial Visit ___ Follow-up Visit ___ On-call Visit ___ General Patient Visit ___ Spiritual Assessment ___ Family Conference ___ Bereavement ___ Rapid Response ___ Code Blue ___ Other (describe below) Pastoral Care Referral From _x__ Patient ___ Family ___ Nurse ___ Physician ___ Cylinder Dyer ___ Architectural Engineering Teacher ___ Other (describe below) Sacrament/Intervention _x__ Active listening ___ Anointing ___ Hindu ___ Bereavement ___ Communion _x__ Pascale exploration ___ ___ Life review _x__ Prayer ___ Reconciliation ___ Sacrament of Sick _x__ Supportive presence ___ Wedding ___ Other (describe below) Pastoral Comments patient reports improvement and a desire to get back to pentecostalism and for spiritual help; pt talks about his life and struggles; pt welcomes a prayer and support; pt is going to be discharged soon
--- NOTE | 2017-10-04 11:50 | CASEMGMT ---
JORGE CM DC CALL NOTE. No answer, no machine to leave message. Farideh NUNES RN ACM
== END 2017-10-02 15:04 | disposition home or self-care (01) | DRG 897 ==
LOC: ED 18:27 → PCU 18:46
PROVIDERS: Nurse Practitioner Family; Admitting Provider Hospitalist; Emergency Provider Emergency Medicine; Family Provider Family Medicine; PCP Family Medicine
DX: F10.229 Alcohol dependence with intoxication, unspecified (principal); F10.239 Alcohol dependence with withdrawal, unspecified; I48.0 Paroxysmal atrial fibrillation; E78.5 Hyperlipidemia, unspecified; I11.0 Hypertensive heart disease with heart failure; I50.9 Heart failure, unspecified; Y90.6 Blood alcohol level of 120-199 mg/100 ml; Z95.2 Presence of prosthetic heart valve; Z79.01 Long term (current) use of anticoagulants; Z51.81 Encounter for therapeutic drug level monitoring; I35.1 Nonrheumatic aortic (valve) insufficiency; F17.210 Nicotine dependence, cigarettes, uncomplicated; N40.0 Benign prostatic hyperplasia without lower urinary tract symptoms; Z95.0 Presence of cardiac pacemaker; F12.10 Cannabis abuse, uncomplicated
CPT/HCPCS: 36415; 80048; 80076; 80307; 80320; 83690; 83735; 85025; 85027; 85610; 85730; 93005; 93306; 94640; 97161; 97165; 99282; 99406; J7030; A4216; G0480; J2405; J3490

== ENCOUNTER → 2017-10-27 12:12 | Outpatient (CLI) | payer MEDICARE, MEDICAID, SELFPAY ==
[2017-10-27 12:34] LABS: Prothrombin Time (Protime)PT. 48.6 SECONDS (11.7-14.9)
[2017-10-27 12:39] LABS: International Normalized Ratio 5.2
== END ==
PROVIDERS: Family Provider Family Medicine; PCP Family Medicine; Visit Provider Family Medicine
DX: Z95.2 Presence of prosthetic heart valve (principal)
CPT/HCPCS: 85610

== ENCOUNTER → 2017-12-11 11:12 | Outpatient (CLI) | payer MEDICAID, SELFPAY ==
[2017-12-11 11:34] LABS: Prothrombin Time (Protime)PT. 63.5 SECONDS (11.7-14.9)
[2017-12-11 11:43] LABS: International Normalized Ratio 7.4
== END ==
PROVIDERS: Family Provider Family Medicine; PCP Family Medicine; Visit Provider Family Medicine
DX: Z95.2 Presence of prosthetic heart valve (principal)
CPT/HCPCS: 85610

== ENCOUNTER → 2017-12-21 15:25 | Outpatient (CLI) | payer MEDICAID, SELFPAY ==
[2017-12-21 16:14] LABS: Prothrombin Time (Protime)PT. 59.8 SECONDS (11.7-14.9)
[2017-12-21 16:33] LABS: International Normalized Ratio 6.8
== END ==
PROVIDERS: Family Provider Family Medicine; PCP Family Medicine; Referring Provider Family Medicine; Visit Provider Family Medicine
DX: Z95.2 Presence of prosthetic heart valve (principal)
CPT/HCPCS: 85610

== ENCOUNTER → 2018-02-12 12:48 | Outpatient (CLI) | payer MEDICARE, SELFPAY ==
--- NOTE | 2018-02-12 12:56 | CT_ITS ---
STUDY: CT CERVICAL SPINE WITHOUT CONTRAST REASON FOR EXAM: Male, 58 years old. Left arm numbness and tingling, fracture in 2013 RADIATION DOSAGE (If Supplied By Facility): CTDIvol = ( 23.85 ) mGy, DLP = ( 442.12 ) mGycm TECHNIQUE: High resolution transaxial imaging was performed without contrast material. Sagittal and coronal images were reconstructed. Individualized dose optimization techniques were used for this CT. COMPARISON: 06/22/2015 FINDINGS: Normal craniovertebral junction. There are degenerative changes of the anterior atlantoaxial articulation. Normal odontoid process. Normal cervical lordosis. Normal vertebral bodies and posterior osseous elements. C2-3: Disc osteophyte complex without compressive sequelae. C3-4: Disc osteophyte complex with mild left foraminal stenosis. C4-5: Disc osteophyte complex with mild bilateral foraminal stenoses. C5-6: Disc osteophyte complex with mild central canal and moderate bilateral foraminal stenoses. C6-7: Disc osteophyte complex with mild bilateral foraminal stenoses. C7-T1: Normal endplates. Normal disc height and morphology. Normal central canal and intervertebral neuroforamina. Carotid calcifications. A pacemaker is present. Pulmonary emphysema. CT/Spine Cervical without Contras IMPRESSION: Multilevel degenerative disease. Moderate bilateral foraminal stenoses at C5-6. No acute osseous injury is evident. Normal alignment. Electronically Signed: Pablo Nance MD at 9:00 EST Tel , Service support ,
== END ==
PROVIDERS: Family Provider Family Medicine; PCP Family Medicine
DX: R25.1 Tremor, unspecified (principal); G62.9 Polyneuropathy, unspecified
CPT/HCPCS: 72125

== ENCOUNTER → 2018-04-06 10:49 | Outpatient (CLI) | payer MEDICARE, SELFPAY ==
[2018-04-06 11:11] LABS: Prothrombin Time (Protime)PT. 35.3 SECONDS (11.7-14.9)
[2018-04-06 11:19] LABS: International Normalized Ratio 3.5
== END ==
PROVIDERS: PCP Family Medicine; Visit Provider Family Medicine
DX: Z95.2 Presence of prosthetic heart valve (principal)
CPT/HCPCS: 85610

== ENCOUNTER 2018-05-16 12:55 | Inpatient (IN) | payer MEDICARE, SELFPAY ==
[2018-05-16 12:56] VITALS: BP 148/85; PULSE 84; RESP 16; TEMP 36.7; O2SAT 96; BMI 25.1
--- NOTE | 2018-05-16 13:12 | ED.DCSUM_ITS ---
- ER Visit Summary Date of Service: 05/16/18 Chief Complaint: Requesting detox for alcohol abuse History of Present Illness: The patient is a 58 M history of alcoholism hypertension and liver cirrhosis. Patient went to detox about a year ago. He also has a pacemaker mechanical valve for which he is on Coumadin. Patient states he is been drinking heavily for the last 2-3 months. 8-1024 ounce beers a day. He is looking to get help. He drank his normal amount yesterday today is only had one beer for his nose. Hematemesis. Physical Examination: Older male no acute distress. Vital signs are stable. Afebrile. He does not look septic or toxic. HEENT exam unremarkable. Neck nontender. Lungs clear to auscultation bilaterally. Heart regular rhythm rate about 80. Abdomen is soft. Nondistended normal bowel sounds no peritoneal signs. Extremities moves all 4. Calves nontender. Neurologically is awake and alert with no focal motor deficits. Test Results: Hemoglobin 15. Electrolytes sodium low 125 and potassium low at 2.2. Normal BUN, creatinine and gap. Liver enzymes unremarkable lipase normal. Emergency Department Course and Treatment: [facility] will be asked to come down to evaluate the patient for possible admission for alcoholism. Screening labs to be obtained. Patient be given IV Zofran for nausea and IV fluids. Patient will also be given oral potassium. Treatment Plan: [facility] came down to the comfortable with the admission. I have the hospitalist on page. Disposition: Admission Impression: Requesting detox for alcoholism Acute alcohol withdrawal Acute electrolyte abnormalities including acute hyponatremia and hypokalemia. This note was generated with [employer] dictation software. It may contain incorrect words, spelling, and punctuation that were not noted in review of the chart prior to signing ED Disposition - Plan for ED Patient: Referrals: Josue Cifuentes MD [Primary Care Provider] -
[2018-05-16] MEDS: Ondansetron 4 MG/2 ML Vial IV (13:22)
[2018-05-16] MEDS: 0.9% Normal Saline 1,000 ML 125 ML IV (13:22)
[2018-05-16 13:29] LABS: Absolute Neutrophil Count 5.3 X10^3/uL (2.0-7.7); Basophil# 0.01 X10^3/uL; Basophil% 0.1 % (0-1); Eosinophil# 0.07 X10^3/uL; Hematocrit 42.7 % (40-54); Hemoglobin 15.2 g/dl (13.0-16.5); Mean Corp Hgb Conc 35.6 g/gl (32-36); Mean Corpuscular Hgb 33.2 pg (27.0-32.0); Mean Corpuscular Volume 93.2 fL (80-94); Monocyte# 0.88 X10^3/uL; Monocyte% 12.6 % (0-10); Neutrophil # 5.33 X10^3/uL (2.7-7.7); Platelet Count 163 K/mm3 (150-450); RBC Distribution Width SD 43.9 fl (35.1-43.9); Red Blood Count 4.58 M/mm3 (4.6-6.2)
[2018-05-16 13:33] LABS: POSITIVE COUNT NO; POSITIVE DIFFERENTIAL NO; POSITIVE MORPHOLOGY NO
[2018-05-16 13:44] LABS: AST(SGOT) 53 U/L (15-37); Alanine Aminotransfer ALT/SGPT 22 U/L (16-61); Albumin, Serum 3.3 g/dL (3.2-5.0); Alkaline Phosphatase 83 U/L (45-117); Anion Gap 11 (5-15); BUN 6 mg/dL (7-18); BUN/Creat Ratio 7.5 RATIO (10-20); Bilirubin, Direct 0.19 mg/dL (0.00-0.30); Calcium,Total 8.4 mg/dL (8.5-10.1); Chloride 84 mmol/L (98-107); EST Glomerular Filtration Rate 105 mL/min (>60); Est Glom Filt Rate - Afr Amer 127 mL/min (>60); Estimated Creatinine Clearance 79.03 ml/min; Globulin 3.8 g/dL (2.2-4.2); Glucose 119 mg/dL (74-106); Lipase 61 U/L (73-393); Potassium 2.2 mmol/L (3.5-5.1); Protein, Total 7.1 g/dL (6.4-8.2); Sodium Level 125 mmol/L (136-145)
--- NOTE | 2018-05-16 13:44 | ED.RN ---
lab resulted potassium 2.2, physician notified
[2018-05-16 14:09] VITALS: BP 130/68; PULSE 72; RESP 20; O2SAT 92
--- NOTE | 2018-05-16 14:57 | HP.PCM_ITS ---
<Sherley Camargo - Last Filed: 05/16/18 15:34> Problem List (1) Alcohol abuse Status: Chronic (2) H/O mitral valve replacement with mechanical valve Status: Chronic Comment: 27mm mechanical St. Sharan Mitral Valve prosthesis (3) Nonrheumatic aortic (valve) insufficiency Status: Chronic (4) Hyperlipidemia Status: Chronic (5) Presence of permanent cardiac pacemaker Status: Chronic (6) Paroxysmal atrial fibrillation Status: Chronic (7) HTN (hypertension) Status: Chronic History of Present Illness Date of Admission: 05/16/18 Chief Complaint: Alcohol withdrawal The patient is a 58 year old M who presents from the emergency room due to alcohol withdrawal. He has a past medical history of chronic alcohol use, hypertension, liver cirrhosis, hyperlipidemia, BPH, status post pacemaker, paroxysmal atrial fibrillation, mechanical mitral valve replacement. Patient reports he maintained sobriety after detox in September 2017 through February 2018. He states he relapsed and has been drinking 8-10 beers a day since that time. He admits to marijuana use as well. Current pack per day smoker. His last drink was approximately 1 hour prior to admission. He complains of shaking and abdominal cramping and diarrhea. He complains of back pain. Reports he previously followed with pain management and was discharged due to giving a dirty urine sample. Patient denies history of seizures with withdrawal. He has a significant cardiac history as noted above. Follows with Dr. Medina. Past Medical History Past Medical History (Chronic Problems): Chronic Problems (Last Reviewed 10/05/17 @ 14:56 by Lydia Glynn) Alcohol abuse (Chronic) H/O mitral valve replacement with mechanical valve (Chronic ~2009) 27mm [address] Sharan Mitral Valve prosthesis Nonrheumatic aortic (valve) insufficiency (Chronic) Hyperlipidemia (Chronic) Presence of permanent cardiac pacemaker (Chronic) Paroxysmal atrial fibrillation (Chronic) HTN (hypertension) (Chronic) Medical History: Medical History (Last Reviewed 10/05/17 @ 14:56 by Lydia Glynn) Nonrheumatic aortic (valve) insufficiency (Chronic) I35.1 Hyperlipidemia (Chronic) E78.5 Presence of permanent cardiac pacemaker (Chronic) Z95.0 Paroxysmal atrial fibrillation (Chronic) I48.0 HTN (hypertension) (Chronic) I10 COPD (chronic obstructive pulmonary disease) J44.9 Dementia F03.90 History of GI bleed Z87.19 Alcoholic cirrhosis K70.30 Alcoholism /alcohol abuse F10.20 BPH (benign prostatic hyperplasia) N40.0 Depression F32.9 Allergies metronidazole Allergy (Verified 05/16/18 12:56) Unknown ibuprofen Adverse Reaction (Verified 05/16/18 12:56) Upset Stomach naproxen [From Aleve] Adverse Reaction (Verified 05/16/18 12:56) gi upset Home Medications: Ambulatory Orders Medication Instructions Recorded Acamprosate Calcium 666 mg PO TID 08/18/17 Ascorbic Acid [Vitamin C] 1,000 mg PO BID 08/18/17 Carvedilol [Coreg (Beta Brock)] 3.125 mg PO BID 08/18/17 Donepezil HCl [Aricept] 10 mg PO QHS 08/18/17 Ferrous Sulfate 325 mg PO DAILY@0800 08/18/17 Finasteride [Proscar] 5 mg PO DAILY 08/18/17 Furosemide [Lasix] 40 mg PO BIDLX 08/18/17 Lisinopril [Zestril] 5 mg PO DAILY 08/18/17 Multivitamin/Iron/Folic Acid 1 ea PO DAILY 08/18/17 [Centrum Adults Tablet] Omeprazole 40 mg PO DAILY 08/18/17 Oxybutynin [Ditropan] 5 mg PO TID 08/18/17 Paroxetine HCl [Paxil] 50 mg PO DAILY 08/18/17 Pramipexole Di-HCl [Mirapex] 0.5 mg PO DAILY 08/18/17 Pregabalin [Lyrica] 75 mg PO TID 08/18/17 Sennosides [Natural Laxative] 1 tab PO BID 08/18/17 Thiamine Mononitrate (Vit B1) 100 mg PO DAILY 08/18/17 [Vitamin B-1] Trazodone HCl 300 mg PO QHS 08/18/17 Warfarin [Coumadin] 5 mg PO SUSA 08/18/17 atorvastatin 20 mg tablet 20 mg PO QHS #30 tab 12/06/17 Warfarin Sodium [Coumadin] 7.5 mg PO MOTUWETHFR 05/16/18 Surgical History: Surgical History (Last Reviewed 05/16/18 @ 14:56 by BALBIR Garcia) H/O mitral valve replacement with mechanical valve (Chronic) Onset Date: ~[address] Sharan Mitral Valve prosthesis History of arthroscopy of left shoulder Z98.890 History of cholecystectomy Z98.890, Z90.49 History of hernia repair Z98.890, Z87.19 History of sinus surgery Z98.890 Status post mitral valve replacement Onset Date: ~2009 [address]95[address] Sharan Mitral Valve prosthesis Surgical History: - - mechanical mitral valve neck surgery, back surgery, right hip pinned. Psychiatric History: Anxiety Lives: Alone Smoking Status: Current every day smoker Alcohol: Heavy Drugs: Marijuana - *Family History Maternal Family History: Family History (Last Reviewed 05/16/18 @ 14:56 by BALBIR Garcia) Mother Heart disease Father Heart disease CVA (cerebral vascular accident) Brother Heart disease Diabetes Sister Heart disease History Items: Cancer Paternal Family History: Family History (Last Reviewed 05/16/18 @ 14:56 by BALBIR Garcia) Mother Heart disease Father Heart disease CVA (cerebral vascular accident) Brother Heart disease Diabetes Sister Heart disease History Items: - - Father with history of blood clot, unclear type. Sibling Family History: Family History (Last Reviewed 05/16/18 @ 14:56 by BALBIR Garcia) Mother Heart disease Father Heart disease CVA (cerebral vascular accident) Brother Heart disease Diabetes Sister Heart disease Review of Systems Constitutional: Denies: Chills, Fever, Weight Change HEENT: Denies: Head Aches, Sinus Congestion, Sinus Drainage Cardiovascular: Denies: Chest Pain, Edema, Light Headedness, Palpitations, Syncope Respiratory: Denies: Cough, Shortness of breath at rest, Sputum production Gastrointestinal: Reports: Diarrhea, - - Abdominal cramping.. Denies: Nausea, Vomiting Genitourinary: Denies: Dysuria Musculoskeletal: Denies: Joint Pain, Joint Tenderness Skin: Denies: Rash, Wounds Neurological: Denies: Numbness, Tingling, Focal weakness Psychiatric: Reports: Anxiety. Denies: Depression, Homicidal Ideations, Suicidal Ideations Hematologic/ Lymphatic: Denies: Easy Bruising, Easy Bleeding VTE Information - Inpt Only VTE Present on Admission: No VTE Mechan Device Prophylaxis: None VTE Pharm Prophylaxis ordered?: Yes - Physical Exam General: Alert, Oriented x3, Cooperative HEENT: Atraumatic, PERRLA, EOMI, Normocephalic Neck: Supple, No JVD, Negative Carotid Bruits Lungs: Clear to auscultation, Normal air movement Cardiovascular: Regular rate, Regular Rhythm, Normal S1, Normal S2, No murmurs Abdomen: Bowel Sounds Present, Soft, Non Tender Extremities: No clubbing, No cyanosis, No edema, Capillary Refill Less than 3 Seconds Skin: No rashes, No breakdown Musculoskeletal: No Tenderness to Palpation of Joints or Extremities Neurological: Cranial nerves II-XII grossly intact, Neuro grossly intact Psych/Mental Status: Normal Affect, Appropriate Vital Signs Temp Pulse Resp BP Pulse Ox 98.1 F 72 20 H 130/68 H 92 05/16/18 12:56 05/16/18 14:09 05/16/18 14:09 05/16/18 14:09 05/16/18 14:09 Oxygen Delivery Method Room Air Weight: 141 lb 12.116 oz Body Mass Index (BMI) 25.1 Finger Stick Blood Glucose 109 Laboratory Tests Past 24 Hrs 05/16/18 05/16/18 13:15 13:15 WBC 7.0 RBC 4.58 L Hgb 15.2 Hct 42.7 MCV 93.2 MCH 33.2 H MCHC 35.6 RDW 13.0 RDW Differential 43.9 Plt Count 163 MPV 9.0 Immature Gran % (Auto) 0.300 Neut % (Auto) 76.0 H Lymph % (Auto) 10.0 L Bergen % (Auto) 12.6 H Eos % (Auto) 1.0 Baso % (Auto) 0.1 Absolute Neuts (auto) 5.3 Absolute Lymphs (auto) 0.70 L Total Counted Not Reportable Sodium 125 L Potassium 2.2 L* Chloride 84 L Carbon Dioxide 30.0 Anion Gap 11 BUN 6 L Creatinine 0.80 Estim Creat Clear Calc 79.03 Est GFR (MDRD) Af Amer 127 Est GFR (MDRD) Non-Af 105 BUN/Creatinine Ratio 7.5 L Glucose 119 H Calcium 8.4 L Total Bilirubin 0.50 Direct Bilirubin 0.19 AST 53 H ALT 22 Alkaline Phosphatase 83 Total Protein 7.1 Albumin 3.3 Globulin 3.8 Lipase 61 L Assessment/Plan 1. Acute alcohol withdrawal on chronic alcohol abuse- Medical stabilization per protocol. [place] protocol. Patient admits to cannabis use as well. Obtain urine tox screen. 2. Hypokalemia-replace per protocol. Trend BMP. 3. Hypertension-stable, continue current regimen. 4. Hyperlipidemia-continue statin. 5. BPH-continue home regimen. 6. Status post pacemaker 7. Mechanical mitral valve replacement-on anticoagulation with Coumadin. Follows with Dr. Medina. 8. Paroxysmal atrial fibrillation-on Coumadin as noted above. 9. Tobacco dependence-encouraged smoking cessation. DVT prophylaxis- coumadin This patient was seen by BALBIR Garcia under the supervision of Dr. Cade. <Salvador Cade F - Last Filed: 05/16/18 18:50> History of Present Illness The patient is a 58 year old M [] Past Medical History Medical History: Medical History (Last Reviewed 10/05/17 @ 14:56 by Lydia Glynn) Nonrheumatic aortic (valve) insufficiency (Chronic) I35.1 Hyperlipidemia (Chronic) E78.5 Presence of permanent cardiac pacemaker (Chronic) Z95.0 Paroxysmal atrial fibrillation (Chronic) I48.0 HTN (hypertension) (Chronic) I10 COPD (chronic obstructive pulmonary disease) J44.9 Dementia F03.90 History of GI bleed Z87.19 Alcoholic cirrhosis K70.30 Alcoholism /alcohol abuse F10.20 BPH (benign prostatic hyperplasia) N40.0 Depression F32.9 Allergies metronidazole Allergy (Verified 05/16/18 12:56) Unknown ibuprofen Adverse Reaction (Verified 05/16/18 12:56) Upset Stomach naproxen [From Aleve] Adverse Reaction (Verified 05/16/18 12:56) gi upset Surgical History: Surgical History (Last Reviewed 05/16/18 @ 14:56 by BALBIR Garcia) H/O mitral valve replacement with mechanical valve (Chronic) Onset Date: ~[address] Sharan Mitral Valve prosthesis History of arthroscopy of left shoulder Z98.890 History of cholecystectomy Z98.890, Z90.49 History of hernia repair Z98.890, Z87.19 History of sinus surgery Z98.890 Status post mitral valve replacement Onset Date: ~2009 [address]95[address] Sharan Mitral Valve prosthesis - *Family History Maternal Family History: Family History (Last Reviewed 05/16/18 @ 14:56 by BALBIR Garcia) Mother Heart disease Father Heart disease CVA (cerebral vascular accident) Brother Heart disease Diabetes Sister Heart disease Paternal Family History: Family History (Last Reviewed 05/16/18 @ 14:56 by BALBIR Garcia) Mother Heart disease Father Heart disease CVA (cerebral vascular accident) Brother Heart disease Diabetes Sister Heart disease Sibling Family History: Family History (Last Reviewed 05/16/18 @ 14:56 by BALBIR Garcia) Mother Heart disease Father Heart disease CVA (cerebral vascular accident) Brother Heart disease Diabetes Sister Heart disease - Physical Exam Vital Signs Temp Pulse Resp BP Pulse Ox 98.8 F 70 18 137/74 H 94 05/16/18 15:58 05/16/18 15:58 05/16/18 15:58 05/16/18 15:58 05/16/18 15:26 Oxygen Delivery Method Room Air Weight: 133 lb 13.129 oz Body Mass Index (BMI) 23.7 Finger Stick Blood Glucose 109 Intake and Output for Last 24 Hours 05/14/18 05/15/18 05/16/18 23:59 23:59 23:59 Intake Total 800 / 800 Balance 800 / 800 Laboratory Tests Past 24 Hrs 05/16/18 05/16/18 05/16/18 13:15 13:15 13:15 WBC 7.0 RBC 4.58 L Hgb 15.2 Hct 42.7 MCV 93.2 MCH 33.2 H MCHC 35.6 RDW 13.0 RDW Differential 43.9 Plt Count 163 MPV 9.0 Immature Gran % (Auto) 0.300 Neut % (Auto) 76.0 H Lymph % (Auto) 10.0 L Bergen % (Auto) 12.6 H Eos % (Auto) 1.0 Baso % (Auto) 0.1 Absolute Neuts (auto) 5.3 Absolute Lymphs (auto) 0.70 L Total Counted Not Reportable PT 36.5 H INR 3.6 H* Sodium 125 L Potassium 2.2 L* Chloride 84 L Carbon Dioxide 30.0 Anion Gap 11 BUN 6 L Creatinine 0.80 Estim Creat Clear Calc 79.03 Est GFR (MDRD) Af Amer 127 Est GFR (MDRD) Non-Af 105 BUN/Creatinine Ratio 7.5 L Glucose 119 H Calcium 8.4 L Total Bilirubin 0.50 Direct Bilirubin 0.19 AST 53 H ALT 22 Alkaline Phosphatase 83 Total Protein 7.1 Albumin 3.3 Globulin 3.8 Lipase 61 L Code Visit Addendum: Dr. Cade I personally examined the patient and reviewed the chart. I agree with the above. 4-year-old male presenting in alcohol withdrawal and wanting to go through the [facility] detox program. He has a history of mitral valve replacement with mechanical valve and is on Coumadin. His INR on admission was 3.6, therefore will hold his warfarin and follow his INR. Otherwise we will continue with [facility] protocol for detox and he will hopefully be able to set up some outpatient rehab. He does note that he was having back pain and he used to be in pain management but was kicked out because his urine drug test came back positive with marijuana. He received 60 mEq of oral potassium in the ER for a potassium of 2.2, will repeat BMP. Inpatient E&M: 45406 Init Hosp L3
[2018-05-16 15:06] VITALS: BMI 23.7
[2018-05-16 15:26] VITALS: BP 121/74; PULSE 73; RESP 18; TEMP 36.9; O2SAT 94
[2018-05-16 15:58] VITALS: BP 137/74; PULSE 70; RESP 18; TEMP 37.1
[2018-05-16 16:09] LABS: Prothrombin Time (Protime)PT. 36.5 SECONDS (11.7-14.9)
[2018-05-16] MEDS: Dicyclomine 10 MG Capsule 20 MG PO (16:09)
[2018-05-16] MEDS: Methocarbamol 750 MG Tablet PO (16:09)
[2018-05-16] MEDS: chlordiazePOXIDE 25 MG Capsule PO ×2 (16:09→21:38)
[2018-05-16 16:30] LABS: International Normalized Ratio 3.6
[2018-05-16] MEDS: LORazepam 2 MG/ML Syringe 1 MG IV (20:36)
[2018-05-16] MEDS: 0.9% NaCl Peripheral Flush Adult/Peds IV (20:37)
[2018-05-16 20:54] VITALS: BP 124/75; PULSE 78; RESP 16; TEMP 37.1; O2SAT 96
[2018-05-16] MEDS: Pregabalin 75 MG Capsule PO (21:42)
[2018-05-16] MEDS: Ascorbic Acid 500 MG Tablet 1000 MG PO (21:42)
[2018-05-16] MEDS: traZODone 100 MG Tablet 300 MG PO (21:43)
[2018-05-16] MEDS: Carvedilol 3.125 MG TABLET PO (21:44)
[2018-05-16] MEDS: Oxybutynin 5 MG Tablet PO (21:45)
[2018-05-16] MEDS: Atorvastatin Calcium 20 MG Tablet PO (21:46)
[2018-05-16] MEDS: Donepezil HCl 10 MG Tablet PO (21:46)
[2018-05-16] MEDS: Senna Tablet 1 TABLET PO (21:48)
[2018-05-17] VITALS (12 sets, daily range): BP systolic 93–136; BP diastolic 63–84; PULSE 56–114; RESP 14–16; TEMP 36.3–37.2; O2SAT 95–97
[2018-05-17] MEDS: chlordiazePOXIDE 25 MG Capsule PO ×3 (03:09→17:00)
[2018-05-17] MEDS: Oxybutynin 5 MG Tablet PO ×3 (05:24→20:37)
[2018-05-17] MEDS: Pregabalin 75 MG Capsule PO ×3 (05:24→20:51)
[2018-05-17 07:04] LABS: International Normalized Ratio 2.7
[2018-05-17 07:13] LABS: Anion Gap 7 (5-15); BUN 6 mg/dL (7-18); BUN/Creat Ratio 8.9 RATIO (10-20); Calcium,Total 8.1 mg/dL (8.5-10.1); Chloride 93 mmol/L (98-107); Creatinine, Serum 0.68 mg/dL (0.70-1.30); EST Glomerular Filtration Rate 127 mL/min (>60); Est Glom Filt Rate - Afr Amer 154 mL/min (>60); Estimated Creatinine Clearance 92.97 ml/min; Glucose 109 mg/dL (74-106); Potassium 2.9 mmol/L (3.5-5.1); Sodium Level 132 mmol/L (136-145)
[2018-05-17] MEDS: Paroxetine 20 MG Tablet 40 MG PO (10:01)
[2018-05-17] MEDS: Pantoprazole Sodium 40 MG Tablet PO (10:01)
[2018-05-17] MEDS: Senna Tablet 1 TABLET PO (10:01)
[2018-05-17] MEDS: Ferrous Sulfate 325 MG Tablet PO (10:01)
[2018-05-17] MEDS: Furosemide 40 MG Tablet PO ×2 (10:01→16:59)
[2018-05-17] MEDS: Lisinopril 5 MG Tablet PO (10:02)
[2018-05-17] MEDS: Folic Acid 1 MG Tablet PO (10:02)
[2018-05-17] MEDS: Carvedilol 3.125 MG TABLET PO ×2 (10:09→20:36)
[2018-05-17] MEDS: Pramipexole Di-HCl 0.5 MG Tablet PO (10:09)
[2018-05-17] MEDS: Multivitamins,Therapeutic Tablet 1 TABLET PO (10:09)
[2018-05-17] MEDS: Thiamine Hydrochloride 100 MG Tablet PO (10:09)
[2018-05-17] MEDS: PARoxetine 10 MG Tablet PO (10:10)
[2018-05-17] MEDS: Finasteride 5 MG Tablet PO (10:11)
[2018-05-17] MEDS: Ascorbic Acid 500 MG Tablet 1000 MG PO ×2 (10:12→20:38)
[2018-05-17] MEDS: Dicyclomine 10 MG Capsule 20 MG PO ×2 (10:26→17:00)
[2018-05-17] MEDS: hydrOXYzine PAM 25 MG Capsule 50 MG PO ×2 (10:26→16:59)
[2018-05-17] MEDS: Methocarbamol 750 MG Tablet PO ×2 (10:26→16:59)
[2018-05-17] MEDS: LORazepam 2 MG/ML Syringe 1 MG IV (13:08)
[2018-05-17] MEDS: 0.9% NaCl Peripheral Flush Adult/Peds IV (13:08)
--- NOTE | 2018-05-17 13:13 | NEWVISION ---
Patient will go to [facility] on Monday05/23/2018 at 1pm to continue with outpatient services.
--- NOTE | 2018-05-17 13:52 | PCM.PROGNOTE ---
Subjective: Sitting upright side of bed, NAD. Pt complains of ongoing tremors, shakes. No nausea/vomiting. He had hot sweats last night, better now. Some lightheadedness today. Some diffuse abdominal pain. - Physical Exam General: Alert, Oriented x3, Cooperative HEENT: Atraumatic, PERRLA, EOMI, Normocephalic Neck: Supple, No JVD, Negative Carotid Bruits Lungs: Clear to auscultation, Normal air movement Cardiovascular: Regular rate, No murmurs Abdomen: Bowel Sounds Present, Soft, Non Tender Extremities: No edema, Capillary Refill Less than 3 Seconds Skin: No rashes, No breakdown Musculoskeletal: No Tenderness to Palpation of Joints or Extremities Neurological: - - tremors marked in BLUE Psych/Mental Status: Normal Affect, Appropriate, Alert and oriented to time, place, person, mood and affect Vital Signs Temp Pulse Resp BP Pulse Ox 97.4 F L 114 H 14 115/78 95 05/17/18 13:19 05/17/18 13:19 05/17/18 13:19 05/17/18 13:19 05/17/18 13:19 Oxygen Delivery Method Room Air Weight: 133 lb 13.129 oz Body Mass Index (BMI) 23.7 Finger Stick Blood Glucose 109 Intake and Output for Last 24 Hours 05/15/18 05/16/18 05/17/18 23:59 23:59 23:59 Intake Total 800 / 800 1080 / 1080 Balance 800 / 800 1080 / 1080 Laboratory Tests Past 24 Hrs 05/16/18 05/17/18 05/17/18 13:15 06:30 06:30 PT 36.5 H 29.0 H INR 3.6 H* 2.7 Sodium 132 L Potassium 2.9 L Chloride 93 L Carbon Dioxide 32.0 Anion Gap 7 BUN 6 L Creatinine 0.68 L Estim Creat Clear Calc 92.97 Est GFR (MDRD) Af Amer 154 Est GFR (MDRD) Non-Af 127 BUN/Creatinine Ratio 8.9 L Glucose 109 H Calcium 8.1 L Medical Necessity - Tobacco Use Smoking Status: Current every day smoker Assessment/Plan 1. Alcohol abuse with acute withdrawal - symptoms include, LH, abdominal discomfort, tremors, sweats. Continue librium taper, prn ativan, CIWA protocol, thiamine, folate. Lipase neg. drinks 8-10 beers per day. Denies hx of withdrawal seizure. -electrolyte abnormalities likely 2/2 drinking including hyponatremia (beer potomania), hypokalemia. Replete. Check mag/phos. 2. Hx alcoholic cirrhosis - LFTs mildly abnormal on admission 3. PAfib - has PM, on warfarin (INR therapeutic now), mildly tachy, coreg 4. Hx mechanical mitral valve - [facility]. Sharan. Warfarin 5. COPD - no exacerbation. lungs clear. add aerosols if he has SOB. 6. HTN - stable 7. HLD - lipitor 8. BPH - proscar 9. Dementia - aricept DVT ppx: warfarin Medical stabilization day 2 of 4 This patient was seen by Magdi Rod PA-C under the supervision of Dr. Doll.
[2018-05-17 15:04] LABS: Magnesium 1.9 mg/dL (1.6-2.6); Phosphorus 1.9 mg/dL (2.5-4.9)
--- NOTE | 2018-05-17 18:02 | CHAPLAIN ---
Type of Pastoral Visit _x__ Initial Visit ___ Follow-up Visit ___ On-call Visit ___ General Patient Visit ___ Spiritual Assessment ___ Family Conference ___ Bereavement ___ Rapid Response ___ Code Blue ___ Other (describe below) Pastoral Care Referral From _x__ Patient ___ Family ___ Nurse ___ Physician ___ Ripshear Operator ___ Roadway Designer ___ Other (describe below) Sacrament/Intervention _x__ Active listening ___ Anointing ___ Mormon ___ Bereavement ___ Communion _x__ Pascale exploration ___ _x__ Life review _x__ Prayer ___ Reconciliation ___ Sacrament of Sick _x__ Supportive presence ___ Wedding ___ Other (describe below) Pastoral Comments patient requests spiritual support and expresses desire to return to spiritism; pt asks for prayer; pt speaks of anxiety about dying too young
[2018-05-17] MEDS: Atorvastatin Calcium 20 MG Tablet PO (20:37)
[2018-05-17] MEDS: Donepezil HCl 10 MG Tablet PO (20:37)
[2018-05-17] MEDS: traZODone 100 MG Tablet 300 MG PO (20:51)
[2018-05-18] VITALS (9 sets, daily range): BP systolic 106–116; BP diastolic 60–76; PULSE 66–82; RESP 16–18; TEMP 36.3–36.9; O2SAT 95–98
[2018-05-18] MEDS: chlordiazePOXIDE 25 MG Capsule PO ×3 (01:44→16:42)
[2018-05-18] MEDS: Dicyclomine 10 MG Capsule 20 MG PO (01:44)
[2018-05-18] MEDS: Methocarbamol 750 MG Tablet PO (01:44)
[2018-05-18] MEDS: hydrOXYzine PAM 25 MG Capsule 50 MG PO (05:29)
[2018-05-18] MEDS: 0.9% NaCl Peripheral Flush Adult/Peds IV ×2 (05:29→21:32)
[2018-05-18] MEDS: Oxybutynin 5 MG Tablet PO ×3 (05:29→20:59)
[2018-05-18] MEDS: Pregabalin 75 MG Capsule PO ×3 (05:29→21:06)
[2018-05-18 06:43] LABS: International Normalized Ratio 1.8; Prothrombin Time (Protime)PT. 21.2 SECONDS (11.7-14.9)
[2018-05-18 06:51] LABS: Anion Gap 6 (5-15); BUN 10 mg/dL (7-18); BUN/Creat Ratio 14.5 RATIO (10-20); Calcium,Total 7.8 mg/dL (8.5-10.1); Chloride 96 mmol/L (98-107); Creatinine, Serum 0.69 mg/dL (0.70-1.30); EST Glomerular Filtration Rate 124 mL/min (>60); Est Glom Filt Rate - Afr Amer 150 mL/min (>60); Estimated Creatinine Clearance 91.63 ml/min; Glucose 86 mg/dL (74-106); Potassium 3.1 mmol/L (3.5-5.1); Sodium Level 132 mmol/L (136-145)
[2018-05-18] MEDS: Carvedilol 3.125 MG TABLET PO ×2 (08:00→20:59)
[2018-05-18] MEDS: Folic Acid 1 MG Tablet PO (08:01)
[2018-05-18] MEDS: Multivitamins,Therapeutic Tablet 1 TABLET PO (08:01)
[2018-05-18] MEDS: Pramipexole Di-HCl 0.5 MG Tablet PO (08:01)
[2018-05-18] MEDS: Thiamine Hydrochloride 100 MG Tablet PO (08:01)
[2018-05-18] MEDS: Ferrous Sulfate 325 MG Tablet PO (08:01)
[2018-05-18] MEDS: Pantoprazole Sodium 40 MG Tablet PO (08:02)
[2018-05-18] MEDS: Ascorbic Acid 500 MG Tablet 1000 MG PO ×2 (08:02→20:58)
[2018-05-18] MEDS: Lisinopril 5 MG Tablet PO (08:02)
[2018-05-18] MEDS: Paroxetine 20 MG Tablet 40 MG PO (08:02)
[2018-05-18] MEDS: Furosemide 40 MG Tablet PO ×2 (08:02→16:44)
[2018-05-18] MEDS: Senna Tablet 1 TABLET PO ×2 (08:02→20:58)
[2018-05-18] MEDS: PARoxetine 10 MG Tablet PO (08:03)
[2018-05-18] MEDS: Finasteride 5 MG Tablet PO (08:04)
[2018-05-18] MEDS: Na Biphos/Potassium Phosphate PACKET 1 PACKET PO (10:05)
[2018-05-18] MEDS: Magnesium Oxide 400 MG Tablet 800 MG PO (10:05)
--- NOTE | 2018-05-18 13:29 | PCM.PROGNOTE ---
Subjective: Pt c/o of ongoing tremulousness. He however feels much better than yesterday. He expresses interest in outpatient AA. - Physical Exam General: Alert, Oriented x3, Cooperative HEENT: Atraumatic, PERRLA, EOMI, Normocephalic Neck: Supple, No JVD, Negative Carotid Bruits Lungs: Clear to auscultation, Normal air movement Cardiovascular: Regular rate, No murmurs Abdomen: Bowel Sounds Present, Soft, Non Tender Extremities: No edema, Capillary Refill Less than 3 Seconds Skin: No rashes, No breakdown Musculoskeletal: No Tenderness to Palpation of Joints or Extremities Neurological: Cranial nerves II-XII grossly intact, - - upper ext tremor Psych/Mental Status: Normal Affect, Appropriate, Alert and oriented to time, place, person, mood and affect Vital Signs Temp Pulse Resp BP Pulse Ox 97.9 F 70 16 116/76 95 05/18/18 08:00 05/18/18 08:00 05/18/18 08:00 05/18/18 08:00 05/18/18 08:00 Oxygen Delivery Method Room Air Weight: 133 lb 13.129 oz Body Mass Index (BMI) 23.7 Finger Stick Blood Glucose 109 Intake and Output for Last 24 Hours 05/16/18 05/17/18 05/18/18 23:59 23:59 23:59 Intake Total 800 / 800 1080 / 1080 500 / 500 Balance 800 / 800 1080 / 1080 500 / 500 Laboratory Tests Past 24 Hrs 05/17/18 05/17/18 05/17/18 06:30 17:12 18:15 PT INR Sodium Potassium Chloride Carbon Dioxide Anion Gap BUN Creatinine Estim Creat Clear Calc Est GFR (MDRD) Af Amer Est GFR (MDRD) Non-Af BUN/Creatinine Ratio Glucose Calcium Phosphorus 1.9 L Magnesium 1.9 Ammonia Cancelled 44.0 H 05/18/18 05/18/18 06:20 06:20 PT 21.2 H INR 1.8 Sodium 132 L Potassium 3.1 L Chloride 96 L Carbon Dioxide 30.0 Anion Gap 6 BUN 10 Creatinine 0.69 L Estim Creat Clear Calc 91.63 Est GFR (MDRD) Af Amer 150 Est GFR (MDRD) Non-Af 124 BUN/Creatinine Ratio 14.5 Glucose 86 Calcium 7.8 L Phosphorus Magnesium Ammonia Medical Necessity - Tobacco Use Smoking Status: Current every day smoker Assessment/Plan 1. Alcohol abuse with acute withdrawal - tremors ongoing. Continue librium taper, prn ativan, CIWA protocol, thiamine, folate. Lipase neg. drinks 8-10 beers per day. Denies hx of withdrawal seizure. -electrolyte abnormalities likely 2/2 drinking including - continue to replete. -plans for outpatient therapy / AA 2. Hx alcoholic cirrhosis - LFTs mildly abnormal on admission 3. PAfib - has PM, on warfarin (INR therapeutic now), mildly tachy, coreg 4. Hx mechanical mitral valve - [facility]. Sharan. Warfarin 5. COPD - no exacerbation. lungs clear. add aerosols if he has SOB. 6. HTN - stable 7. HLD - lipitor 8. BPH - proscar 9. Dementia - aricept DVT ppx: warfarin Medical stabilization day 3 of 4 This patient was seen by Magdi Rod PA-C under the supervision of Dr. Doll.
[2018-05-18] MEDS: Acetaminophen 325 MG Tablet PO (16:43)
[2018-05-18] MEDS: traZODone 100 MG Tablet 300 MG PO (20:59)
[2018-05-18] MEDS: Atorvastatin Calcium 20 MG Tablet PO (21:02)
[2018-05-18] MEDS: Donepezil HCl 10 MG Tablet PO (21:02)
[2018-05-18] MEDS: LORazepam 2 MG/ML Syringe 1 MG IV (21:32)
[2018-05-19] VITALS (10 sets, daily range): BP systolic 107–157; BP diastolic 64–117; PULSE 72–105; RESP 16–18; TEMP 36.7–37.3; O2SAT 94–98
[2018-05-19] MEDS: Pantoprazole Sodium 40 MG Tablet PO (03:47)
[2018-05-19] MEDS: Oxybutynin 5 MG Tablet PO ×3 (05:18→21:04)
[2018-05-19] MEDS: chlordiazePOXIDE 25 MG Capsule PO (05:18)
[2018-05-19] MEDS: Pregabalin 75 MG Capsule PO ×3 (05:18→21:11)
[2018-05-19 07:08] LABS: International Normalized Ratio 1.5; Prothrombin Time (Protime)PT. 18.2 SECONDS (11.7-14.9)
[2018-05-19 07:15] LABS: Anion Gap 8 (5-15); BUN 12 mg/dL (7-18); BUN/Creat Ratio 14.3 RATIO (10-20); Calcium,Total 8.3 mg/dL (8.5-10.1); Chloride 99 mmol/L (98-107); Creatinine, Serum 0.84 mg/dL (0.70-1.30); EST Glomerular Filtration Rate 99 mL/min (>60); Est Glom Filt Rate - Afr Amer 120 mL/min (>60); Estimated Creatinine Clearance 75.26 ml/min; Glucose 108 mg/dL (74-106); Magnesium 1.9 mg/dL (1.6-2.6); Phosphorus 1.6 mg/dL (2.5-4.9); Potassium 3.2 mmol/L (3.5-5.1); Sodium Level 139 mmol/L (136-145)
[2018-05-19] MEDS: Mag Hydrox/Al Hydrox/Simeth 30 ML UDC PO (08:42)
[2018-05-19] MEDS: Enoxaparin 100 MG/ML Syringe 90 MG SC (08:42)
[2018-05-19] MEDS: Magnesium Oxide 400 MG Tablet 800 MG PO (08:42)
[2018-05-19] MEDS: Acetaminophen 325 MG Tablet PO ×2 (08:50→21:00)
[2018-05-19] MEDS: Na Biphos/Potassium Phosphate PACKET 2 PACKET PO (10:23)
[2018-05-19] MEDS: Ascorbic Acid 500 MG Tablet 1000 MG PO ×2 (10:25→21:03)
[2018-05-19] MEDS: Carvedilol 3.125 MG TABLET PO ×2 (10:25→21:01)
[2018-05-19] MEDS: Folic Acid 1 MG Tablet PO (10:25)
[2018-05-19] MEDS: Lisinopril 5 MG Tablet PO (10:26)
[2018-05-19] MEDS: PARoxetine 10 MG Tablet PO (10:26)
[2018-05-19] MEDS: Paroxetine 20 MG Tablet 40 MG PO (10:27)
[2018-05-19] MEDS: Thiamine Hydrochloride 100 MG Tablet PO (10:27)
[2018-05-19] MEDS: Pramipexole Di-HCl 0.5 MG Tablet PO (10:27)
[2018-05-19] MEDS: Furosemide 40 MG Tablet PO ×2 (10:27→17:26)
[2018-05-19] MEDS: Senna Tablet 1 TABLET PO ×2 (10:27→21:03)
[2018-05-19] MEDS: Multivitamins,Therapeutic Tablet 1 TABLET PO (10:28)
[2018-05-19] MEDS: Ferrous Sulfate 325 MG Tablet PO (10:28)
[2018-05-19] MEDS: Finasteride 5 MG Tablet PO (10:29)
--- NOTE | 2018-05-19 12:26 | PCM.PROGNOTE ---
Subjective: Pt continues to improve. Only complaint is that he is feeling week. We will have PTOT see him. He is waiting for his INR to improve. - Physical Exam General: Alert, Oriented x3, Cooperative HEENT: Atraumatic, PERRLA, EOMI, Normocephalic Neck: Supple, No JVD, Negative Carotid Bruits Lungs: Clear to auscultation, Normal air movement Cardiovascular: Regular rate, Murmur Abdomen: Bowel Sounds Present, Soft, Non Tender Extremities: No edema, Capillary Refill Less than 3 Seconds Skin: No rashes, No breakdown Musculoskeletal: No Tenderness to Palpation of Joints or Extremities Neurological: Cranial nerves II-XII grossly intact Psych/Mental Status: Normal Affect, Appropriate, Alert and oriented to time, place, person, mood and affect Vital Signs Temp Pulse Resp BP Pulse Ox 98.4 F 94 18 107/70 94 05/19/18 10:38 05/19/18 10:38 05/19/18 10:38 05/19/18 10:38 05/19/18 07:46 Oxygen Delivery Method Room Air Weight: 133 lb 13.129 oz Body Mass Index (BMI) 23.7 Finger Stick Blood Glucose 109 Intake and Output for Last 24 Hours 05/17/18 05/18/18 05/19/18 23:59 23:59 23:59 Intake Total 1080 / 1080 500 / 500 550 / 550 Balance 1080 / 1080 500 / 500 550 / 550 Laboratory Tests Past 24 Hrs 05/19/18 05/19/18 06:24 06:24 PT 18.2 H INR 1.5 Sodium 139 Potassium 3.2 L Chloride 99 Carbon Dioxide 32.0 Anion Gap 8 BUN 12 Creatinine 0.84 Estim Creat Clear Calc 75.26 Est GFR (MDRD) Af Amer 120 Est GFR (MDRD) Non-Af 99 BUN/Creatinine Ratio 14.3 Glucose 108 H Calcium 8.3 L Phosphorus 1.6 L Magnesium 1.9 Medical Necessity - Tobacco Use Smoking Status: Current every day smoker Assessment/Plan 1. Alcohol abuse with acute withdrawal - tremors ongoing. Continue librium taper done. prn ativan, CIWA protocol, thiamine, folate. Lipase neg. drinks 8-10 beers per day. Denies hx of withdrawal seizure. -Electrolytes improving. 2. Hx alcoholic cirrhosis - LFTs mildly abnormal on admission 3. PAfib - has PM, on warfarin, mildly tachy, coreg 4. Hx mechanical mitral valve - [facility]. Sharan. Warfarin - continues to drop. Increased his dose and giving therapeutic lovenox bridge. 5. COPD - no exacerbation. lungs clear. add aerosols if he has SOB. 6. HTN - stable 7. HLD - lipitor 8. BPH - proscar 9. Dementia - aricept DVT ppx: warfarin/lovenox bridge. DC planning: trend INR This patient was seen by Magdi Rod PA-C under the supervision of Dr. Doll.
[2018-05-19 17:07] LABS: International Normalized Ratio 1.8; Prothrombin Time (Protime)PT. 20.8 SECONDS (11.7-14.9)
[2018-05-19] MEDS: LORazepam 2 MG/ML Syringe 1 MG IV ×2 (18:06→21:02)
[2018-05-19] MEDS: 0.9% NaCl Peripheral Flush Adult/Peds IV ×2 (18:06→21:02)
[2018-05-19] MEDS: Atorvastatin Calcium 20 MG Tablet PO (21:03)
[2018-05-19] MEDS: Donepezil HCl 10 MG Tablet PO (21:04)
[2018-05-19] MEDS: traZODone 100 MG Tablet 300 MG PO (21:04)
[2018-05-20 04:57] VITALS: BP 129/71; PULSE 71; RESP 18; TEMP 36.4; O2SAT 94
[2018-05-20 04:58] VITALS: BP 129/71; PULSE 71; RESP 18; TEMP 36.4; O2SAT 94
[2018-05-20] MEDS: Oxybutynin 5 MG Tablet PO (05:02)
[2018-05-20] MEDS: Pregabalin 75 MG Capsule PO (05:02)
[2018-05-20 06:51] LABS: Prothrombin Time (Protime)PT. 22.6 SECONDS (11.7-14.9)
[2018-05-20 08:41] VITALS: BP 118/79; PULSE 77; RESP 18; TEMP 36.3; O2SAT 97
--- NOTE | 2018-05-20 08:42 | DCINST_ITS ---
You will use the following diet at home:: Cardiac, Other - No alcohol Your food should be the consistency of: Regular Your liquids should be the consistency of: Regular/Thin Discharge Activity: Return to Normal Activity Allergies/Adverse Reactions: Allergies metronidazole Allergy (Verified 05/16/18 12:56) Unknown ibuprofen Adverse Reaction (Verified 05/16/18 12:56) Upset Stomach naproxen [From Aleve] Adverse Reaction (Verified 05/16/18 12:56) gi upset Medications to take at Discharge Acamprosate Calcium 666 mg PO TID 08/18/17 Ascorbic Acid [Vitamin C] 1,000 mg PO BID 08/18/17 Carvedilol [Coreg (Beta Brock)] 3.125 mg PO BID 08/18/17 Donepezil HCl [Aricept] 10 mg PO QHS 08/18/17 Ferrous Sulfate 325 mg PO DAILY@0800 08/18/17 Finasteride [Proscar] 5 mg PO DAILY 08/18/17 Furosemide [Lasix] 40 mg PO BIDLX 08/18/17 Lisinopril [Zestril] 5 mg PO DAILY 08/18/17 Multivitamin/Iron/Folic Acid [Centrum Adults Tablet] 1 ea PO DAILY 08/18/17 Omeprazole 40 mg PO DAILY 08/18/17 Oxybutynin [Ditropan] 5 mg PO TID 08/18/17 Paroxetine HCl [Paxil] 50 mg PO DAILY 08/18/17 Pramipexole Di-HCl [Mirapex] 0.5 mg PO DAILY 08/18/17 Pregabalin [Lyrica] 75 mg PO TID 08/18/17 Sennosides [Natural Laxative] 1 tab PO BID 08/18/17 Thiamine Mononitrate (Vit B1) [Vitamin B-1] 100 mg PO DAILY 08/18/17 Trazodone HCl 300 mg PO QHS 08/18/17 atorvastatin 20 mg tablet 20 mg PO QHS #30 tab 12/06/17 Acetaminophen [Tylenol Tablet] 325 mg PO Q6H PRN PRN tablet 05/19/18 Nicotine [Nicoderm] 14 mg TRANSDERM. DAILY #30 patch 05/19/18 Warfarin [Coumadin] 7.5 mg PO DAILY@1700 tablet 05/20/18 The following prescriptions were given: Nicotine [Nicoderm] 14 mg TRANSDERM. DAILY #30 patch Orders to be completed after discharge: Prothrombin Time w/INR Time Frame: 2 Days, Location: Laboratory Primary Care Physician: Josue Cifuentes MD [Primary Care Provider] - Please follow up with your Primary Care Physician in: 1-2 Test Results: Test results from this visit will be discussed in further detail at your follow- up appointment, if applicable. Please Follow Up With: Samir Medina MD When: 2 days Proposed Discharge Date: 05/20/18
[2018-05-20 09:33] VITALS: RESP 16
[2018-05-20] MEDS: Ascorbic Acid 500 MG Tablet 1000 MG PO (09:37)
[2018-05-20] MEDS: Lisinopril 5 MG Tablet PO (09:37)
[2018-05-20] MEDS: Senna Tablet 1 TABLET PO (09:38)
[2018-05-20] MEDS: Carvedilol 3.125 MG TABLET PO (09:38)
[2018-05-20] MEDS: Ferrous Sulfate 325 MG Tablet PO (09:38)
[2018-05-20] MEDS: Furosemide 40 MG Tablet PO (09:38)
[2018-05-20] MEDS: Folic Acid 1 MG Tablet PO (09:38)
[2018-05-20] MEDS: Pramipexole Di-HCl 0.5 MG Tablet PO (09:39)
[2018-05-20] MEDS: Paroxetine 20 MG Tablet 40 MG PO (09:39)
[2018-05-20] MEDS: Thiamine Hydrochloride 100 MG Tablet PO (09:40)
[2018-05-20] MEDS: Multivitamins,Therapeutic Tablet 1 TABLET PO (09:40)
[2018-05-20] MEDS: Pantoprazole Sodium 40 MG Tablet PO (09:40)
[2018-05-20] MEDS: PARoxetine 10 MG Tablet PO (09:41)
[2018-05-20] MEDS: Finasteride 5 MG Tablet PO (09:41)
--- NOTE | 2018-05-20 11:29 | NURSING ---
home meds returned to pt
--- NOTE | 2018-05-20 14:11 | DS.PCM_ITS ---
Discharge Date and Diagnosis Date of Admission: 05/16/18 Date of Discharge: 05/20/18 - Primary Discharge Diagnosis Alcohol abuse with acute withdrawal History of alcoholic cirrhosis Warfarin coagulopathy History of mechanical mitral valve Paroxysmal A. fib Hypokalemia, hypophosphatemia COPD with no exacerbation Dementia Hypertension Hyperlipidemia BPH - Secondary Discharge Diagnosis Chronic Problems (Last Reviewed 10/05/17 @ 14:56 by Lydia Glynn) Alcohol abuse (Chronic) H/O mitral valve replacement with mechanical valve (Chronic ~2009) 27mm mechanical [facility] Mitral Valve prosthesis Nonrheumatic aortic (valve) insufficiency (Chronic) Hyperlipidemia (Chronic) Presence of permanent cardiac pacemaker (Chronic) Paroxysmal atrial fibrillation (Chronic) HTN (hypertension) (Chronic) Hospital Course and Treatment Operations: None Procedures: None Summary of Care Provided: Hospital course: The patient is a 58 year old M with past medical history as above who presented to the emergency room with complaints of alcohol withdrawal. He is a long-term alcoholic and has alcoholic liver cirrhosis. He is on Coumadin for mechanical mitral valve and paroxysmal atrial fibrillation. He has been sober since detoxing last September started drinking again in February. He drinks about 8-10 beers a day. He also smokes pot and cigarettes. His withdrawal symptoms including shaking, abdominal cramping, diarrhea, back pain. He was admitted to the general medical floor and placed on the alcohol withdrawal protocol. He tolerated detox well. Unfortunately during his stay his INR declined despite his home doses. He was placed on a Lovenox bridge. He was given additional warfarin. We are able to improve his INR and we increased his discharge dose 7.5 mg daily every day. He will need another INR in 2 days and he will need to follow-up with his senior medical director Dr. Medina in 2 days. He also needs to follow-up with his PCP in 1-2 weeks. He was discharged home in stable condition. He plans to pursue outpatient alcohol cessation therapy and is considering AA. This patient was seen by Magdi Rod PA-C under the supervision of Doctor Francis coleman. [] - Physical Exam General: Alert, Oriented x3, Cooperative HEENT: Atraumatic, PERRLA, EOMI, Normocephalic Neck: Supple, No JVD, Negative Carotid Bruits Lungs: Clear to auscultation, Normal air movement Cardiovascular: Regular rate, No murmurs Abdomen: Bowel Sounds Present, Soft, Non Tender Extremities: No edema, Capillary Refill Less than 3 Seconds Skin: No rashes, No breakdown Musculoskeletal: No Tenderness to Palpation of Joints or Extremities Neurological: Cranial nerves II-XII grossly intact Psych/Mental Status: Normal Affect, Appropriate, Alert and oriented to time, place, person, mood and affect Vital Signs Temp Pulse Resp BP Pulse Ox 97.3 F L 77 16 118/79 97 05/20/18 08:41 05/20/18 08:41 05/20/18 09:33 05/20/18 08:41 05/20/18 08:41 Oxygen Delivery Method Room Air Weight: 133 lb 13.129 oz Body Mass Index (BMI) 23.7 Finger Stick Blood Glucose 109 Intake and Output for Last 24 Hours 05/18/18 05/19/18 05/20/18 23:59 23:59 23:59 Intake Total 500 / 500 940 / 940 1890 / 1890 Balance 500 / 500 940 / 940 1890 / 1890 Laboratory Tests Past 24 Hrs 05/19/18 05/20/18 16:30 05:41 PT 20.8 H 22.6 H INR 1.8 2.0 Discharge Diet: No Restrictions, - - No alcohol Discharge Activity: Return to Normal Activity Home Medications: Medications to take at Discharge Acamprosate Calcium 666 mg PO TID 08/18/17 Ascorbic Acid [Vitamin C] 1,000 mg PO BID 08/18/17 Carvedilol [Coreg (Beta Brock)] 3.125 mg PO BID 08/18/17 Donepezil HCl [Aricept] 10 mg PO QHS 08/18/17 Ferrous Sulfate 325 mg PO DAILY@0800 08/18/17 Finasteride [Proscar] 5 mg PO DAILY 08/18/17 Furosemide [Lasix] 40 mg PO BIDLX 08/18/17 Lisinopril [Zestril] 5 mg PO DAILY 08/18/17 Multivitamin/Iron/Folic Acid [Centrum Adults Tablet] 1 ea PO DAILY 08/18/17 Omeprazole 40 mg PO DAILY 08/18/17 Oxybutynin [Ditropan] 5 mg PO TID 08/18/17 Paroxetine HCl [Paxil] 50 mg PO DAILY 08/18/17 Pramipexole Di-HCl [Mirapex] 0.5 mg PO DAILY 08/18/17 Pregabalin [Lyrica] 75 mg PO TID 08/18/17 Sennosides [Natural Laxative] 1 tab PO BID 08/18/17 Thiamine Mononitrate (Vit B1) [Vitamin B-1] 100 mg PO DAILY 08/18/17 Trazodone HCl 300 mg PO QHS 08/18/17 atorvastatin 20 mg tablet 20 mg PO QHS #30 tab 12/06/17 Acetaminophen [Tylenol Tablet] 325 mg PO Q6H PRN PRN tablet 05/19/18 Nicotine [Nicoderm] 14 mg TRANSDERM. DAILY #30 patch 05/19/18 Warfarin [Coumadin] 7.5 mg PO DAILY@1700 tablet 05/20/18 Following Prescrptions Were Given to Patient: Nicotine [Nicoderm] 14 mg TRANSDERM. DAILY #30 patch Other Amb Orders: Prothrombin Time w/INR Time Frame: 2 Days, Location: Laboratory Primary Care Physician: Josue Cifuentes MD [Primary Care Provider] - Please follow up with your Primary Care Physician in: 1-2 Please Follow Up With: Samir Medina MD When: 2 days Disposition: Home Minutes spent on discharge:: 35 Patient Condition:: Stable Medical Necessity - Tobacco Use Smoking Status: Current every day smoker Meaningful Use Info Meaningful Use Diagnoses (Choose all that apply): None applicable
== END 2018-05-20 11:11 | disposition home or self-care (01) | DRG 897 ==
LOC: ED 13:20 → MS2 14:47 → MS3 05-19 14:04
PROVIDERS: Nurse Practitioner Family; Physician Assistant; Admitting Provider Family Medicine; Emergency Provider Emergency Medicine; Family Provider Family Medicine; PCP Family Medicine; Referring Provider Family Medicine; Visit Provider Internal Medicine
DX: F10.239 Alcohol dependence with withdrawal, unspecified (principal); E87.1 Hypo-osmolality and hyponatremia; N40.0 Benign prostatic hyperplasia without lower urinary tract symptoms; E78.5 Hyperlipidemia, unspecified; F17.210 Nicotine dependence, cigarettes, uncomplicated; I48.0 Paroxysmal atrial fibrillation; E87.6 Hypokalemia; I10 Essential (primary) hypertension; K70.30 Alcoholic cirrhosis of liver without ascites; J44.9 Chronic obstructive pulmonary disease, unspecified; I35.1 Nonrheumatic aortic (valve) insufficiency; E83.39 Other disorders of phosphorus metabolism; F03.90 Unspecified dementia, unspecified severity, without behavioral disturbance, psychotic disturbance, mood disturbance, and anxiety; Z95.2 Presence of prosthetic heart valve; Z95.0 Presence of cardiac pacemaker; Z79.01 Long term (current) use of anticoagulants
CPT/HCPCS: 36415; 80048; 80076; 82140; 83690; 83735; 84100; 85025; 85610; 97802; 99282; 99406; J7030; A4216; J2405

== ENCOUNTER → 2018-06-01 12:09 | Outpatient (CLI) | payer MEDICARE, SELFPAY ==
[2018-05-16 15:06] VITALS: BMI 23.7
[2018-06-01 12:26] LABS: Potassium 3.4 mmol/L (3.5-5.1)
== END ==
PROVIDERS: Family Provider Family Medicine; PCP Family Medicine; Referring Provider Family Medicine; Visit Provider Family Medicine
DX: E87.6 Hypokalemia (principal); F10.239 Alcohol dependence with withdrawal, unspecified; R53.1 Weakness; R25.2 Cramp and spasm
CPT/HCPCS: 84132

== ENCOUNTER → 2018-06-08 12:34 | Outpatient (CLI) | payer MEDICARE, SELFPAY ==
[2018-05-16 15:06] VITALS: BMI 23.7
[2018-06-08 13:25] LABS: International Normalized Ratio 2.6; Prothrombin Time (Protime)PT. 28.2 SECONDS (11.7-14.9)
== END ==
PROVIDERS: Family Provider Family Medicine; PCP Family Medicine; Referring Provider Family Medicine; Visit Provider Family Medicine
DX: Z95.2 Presence of prosthetic heart valve (principal)
CPT/HCPCS: 85610

== ENCOUNTER → 2018-06-15 10:03 | Outpatient (CLI) | payer MEDICARE, SELFPAY ==
[2018-05-16 15:06] VITALS: BMI 23.7
[2018-06-15 11:03] LABS: International Normalized Ratio 2.7
== END ==
PROVIDERS: Family Provider Family Medicine; PCP Family Medicine; Referring Provider Family Medicine; Visit Provider Family Medicine
DX: Z95.2 Presence of prosthetic heart valve (principal)
CPT/HCPCS: 85610

== ENCOUNTER → 2018-07-19 | Outpatient (CLI) | payer MEDICARE, SELFPAY ==
[2018-05-16 15:06] VITALS: BMI 23.7
[2018-07-19 13:37] LABS: International Normalized Ratio 1.4; Prothrombin Time (Protime)PT. 17.1 SECONDS (11.7-14.9)
== END | disposition home or self-care (01) ==
LOC: LAB 13:31 → LABSPEC 13:31
PROVIDERS: Family Provider Family Medicine; PCP Family Medicine; Referring Provider Family Medicine; Visit Provider Family Medicine
DX: Z95.2 Presence of prosthetic heart valve (principal)
CPT/HCPCS: 85610

== ENCOUNTER → 2018-07-26 | Outpatient (CLI) | payer MEDICARE, SELFPAY ==
[2018-05-16 15:06] VITALS: BMI 23.7
[2018-07-26 16:21] LABS: International Normalized Ratio 2.5; Prothrombin Time (Protime)PT. 27.2 SECONDS (11.7-14.9)
== END | disposition home or self-care (01) ==
LOC: LABSPEC 15:49
PROVIDERS: Family Provider Family Medicine; PCP Family Medicine; Referring Provider Family Medicine; Visit Provider Family Medicine
DX: Z95.2 Presence of prosthetic heart valve (principal)
CPT/HCPCS: 85610

== ENCOUNTER → 2018-07-31 23:32 | Outpatient (CLI) | payer MEDICARE, SELFPAY ==
[2018-05-16 15:06] VITALS: BMI 23.7
== END ==
PROVIDERS: Family Provider Family Medicine; PCP Family Medicine; Referring Provider Family Medicine; Visit Provider Family Medicine
DX: G47.10 Hypersomnia, unspecified (principal); G47.9 Sleep disorder, unspecified
CPT/HCPCS: 95810

== ENCOUNTER → 2018-09-11 | Outpatient (CLI) | payer MEDICARE, SELFPAY ==
[2018-08-23 11:29] VITALS: BMI 26.5
--- NOTE | 2018-09-11 06:45 | ECHOD_ITS ---
Reason For Study: Valve Replacement Eval Procedure This was a 2D Doppler, Color Flow transthoracic echocardiogram. The study was technically difficult. Exam performed in department. Left Ventricle Normal LV size. Left ventricular systolic function is normal. The estimated ejection fraction is 65 %. No evidence for diastolic dysfunction. No regional wall motion abnormalities noted. Right Ventricle Normal RV size. ICD or pacer leads identified within the right ventricle. Normal systolic function. Atria The left atrium is mildly enlarged. Normal right atrium. ICD or pacer leads identified within the right atrium. No doppler evidence for ASD. Mitral Valve Stable appearing mechanical mitral valve apparatus. Trivial transvalvular insufficiency of the mitral valve. Tricuspid Valve Normal tricuspid valve. Mild tricuspid valve insufficiency. Right ventricular systolic pressure estimated to be 28 mmHg. Aortic Valve Trisinus/trileaflet aortic valve. Mild focal aortic valve calcification. Mild-Moderate (1-2+) aortic valve insufficiency. Pulmonic Valve The pulmonic valve is not well visualized. Great Vessels Normal sized aortic root. Pericardium/Pleural No pericardial effusion. MMode/2D Measurements & Calculations LVIDd: 4.1 cm IVSd: 1.1 cm Ao root diam: 3.4 cm LVIDs: 2.9 cm LVPWd: 1.1 cm LA dimension: 4.1 cm FS: 29.3 % LAV(MOD-bp): 46.5 ml LA A4 area: 20.1 cm2 RA A4 area: 19.2 cm2 LAV(MOD-bp) Indexed: 27.2 ml/m2 LAV(MOD-sp2): 37.5 ml LAV(MOD-sp4): 55.4 ml Time Measurements MV dec time: 0.28 sec Doppler Measurements & Calculations MV E max jozef: 155.2 cm/sec Lat Peak E' Jozef: 10.5 cm/sec Med Peak E' Jozef: 7.3 cm/sec MV A max jozef: 140.4 cm/sec E/E' lat: 14.8 E/E' med: 21.3 MV E/A: 1.1 Ao V2 max: 142.4 cm/sec AI max jozef: 452.1 cm/sec LV V1 max: 107.2 cm/sec Ao max P.1 mmHg AI max P.8 mmHg LV V1 max P.6 mmHg AI dec slope: 263.5 cm/sec2 AI P1/2t: 502.5 msec PA V2 max: 110.0 cm/sec TR max jozef: 249.8 cm/sec TR max P.0 mmHg Interpretation Summary The study was technically difficult. Left ventricular systolic function is normal. The estimated ejection fraction is 65 %. The left atrium is mildly enlarged. Stable appearing mechanical mitral valve apparatus. Trivial transvalvular insufficiency of the mitral valve. Mild tricuspid valve insufficiency. Mild focal aortic valve calcification. Mild-Moderate (1-2+) aortic valve insufficiency. Right ventricular systolic pressure estimated to be 28 mmHg. No evidence for diastolic dysfunction. ICD or pacer leads identified within the right atrium ICD or pacer leads identified within the right ventricle. Ordering Physician: Samir Medina Referring Physician: Samir Medina Performed By: Pepito Boo, TRINIDAD
--- NOTE | 2018-09-11 11:35 | STRESSREP_ITS ---
Stress Test Report Date: 09-11-18 Procedure: Pharmacologic stress nuclear imaging study Indications: Chest pain; PAF; status post MVR; status post PPM Consent: Per the patient Procedure: The patient underwent pharmacologic (Regadenoson) evaluation with a peak heart rate of 111 beats per minute (69 %predicted maximal heart rate) and a peak blood pressure of 130/78 mmHg. The baseline ECG demonstrated normal sinus rhythm. The peak pharmacologic ECG demonstrated no obvious ECG changes. There were no cardiac dysrhythmias pretest, during pharmacologic infusion, or recovery. There was no complaint of chest discomfort during pharmacologic infusion or recovery. The examination was discontinued secondary to completion of protocol. Impression: 1. Pharmacologic (Regadenoson) evaluation 2. Peak pharmacologic ECG with. 3. There were no cardiac dysrhythmias pretest, during pharmacologic infusion, or recovery. 4. Nuclear images pending Myocardial perfusion imaging study: Technique: The patient was injected with 10.9 millicuries of technetium 99m Cardiolite and subsequently rest SPECT Cardiolite nuclear imaging was obtained in the horizont al long, vertical long, and short axis views. The patient underwent pharmacologic (Regadenoson) evaluation with a peak heart rate of 111 beats per minute (69 % percent predicted maximal heart rate) and a peak blood pressure of 130/78 mmHg. The patient was injected with 31.1 millicuries of technetium 99m Cardiolite and subsequently stress SPECT Cardiolite nuclear imaging was obtained in the horizontal long, vertical long, and short axis views. A gated Cardiolite study at peak stress was obtained. Interpretation: Rest and stress SPECT Cardiolite nuclear imaging status post realignment, normal ization, and attenuation correction demonstrate relative uniform tracer uptake and myocardial perfusion appearing within normal limits. There is end systolic thickening and brightening. The gated Cardiolite study demonstrates myocardial thickening and inward wall motion. The reported LVEF is 60 %. Impression: 1. Rest and stress SPECT Cardiolite nuclear imaging demonstrate relative uniform tracer uptake and myocardial perfusion appearing within normal limits. 2. The gated Cardiolite study reports an LVEF of 60 %. This note was generated with [employer]ation software. It may contain incorrect words, spelling, and punctuation that were not noted in checking the note before signing.
== END | disposition home or self-care (01) ==
PROVIDERS: Family Provider Family Medicine; PCP Family Medicine; Referring Provider Internal Medicine Cardiovascular Disease; Visit Provider Internal Medicine Cardiovascular Disease
DX: R07.9 Chest pain, unspecified (principal)
CPT/HCPCS: 78452; 93017; 93306; A9500; A4216; J2785

== ENCOUNTER 2018-10-01 21:56 | Emergency (ER) | payer MEDICARE, SELFPAY ==
[2018-08-23 11:29] VITALS: BMI 26.5
[2018-10-01 22:00] VITALS: BP 143/113; PULSE 102; RESP 18; TEMP 36.7; O2SAT 91; BMI 23.2
[2018-10-01] MEDS: Ziprasidone IM 20 MG/ML VIAL IM (22:19)
[2018-10-01] MEDS: 0.9% Normal Saline 1,000 ML 1000 ML IV (22:19)
[2018-10-01] MEDS: LORazepam 2 MG/ML Syringe 1 MG IV (22:19)
[2018-10-01 22:21] LABS: Absolute Lymphocyte Count 1.18 X10^3/ul (0.83-4.51); Absolute Neutrophil Count 7.5 X10^3/uL (2.0-7.7); Basophil# 0.02 X10^3/uL; Basophil% 0.2 % (0-1); Eosinophil# 0.75 X10^3/uL; Hematocrit 38.3 % (40-54); Hemoglobin 13.4 g/dl (13.0-16.5); Lymphocyte # 1.18 X10^3/ul (4.0); Mean Corpuscular Hgb 31.6 pg (27.0-32.0); Mean Corpuscular Volume 90.3 fL (80-94); Mean Platelet Vol. 9.4 fl (6.2-12.0); Monocyte# 1.23 X10^3/uL; Monocyte% 11.5 % (0-10); Neutrophil # 7.52 X10^3/uL (2.7-7.7); Neutrophil % 70.2 % (47-70); POSITIVE COUNT NO; POSITIVE DIFFERENTIAL NO; POSITIVE MORPHOLOGY NO; Platelet Count 175 K/mm3 (150-450); RBC Distribution Width CV 13.3 % (11.6-14.6); RBC Distribution Width SD 43.3 fl (35.1-43.9); Red Blood Count 4.24 M/mm3 (4.6-6.2); White Blood Count 10.7 K/mm3 (4.4-11.0)
[2018-10-01 22:40] LABS: ALB/GLOB Ratio 1.1 RATIO (0.9-2.4); AST(SGOT) 68 U/L (15-37); Alanine Aminotransfer ALT/SGPT 32 U/L (16-61); Albumin, Serum 3.8 g/dL (3.2-5.0); Alkaline Phosphatase 98 U/L (45-117); Anion Gap 5 (5-15); BUN 12 mg/dL (7-18); Calcium,Total 8.8 mg/dL (8.5-10.1); Chloride 98 mmol/L (98-107); EST Glomerular Filtration Rate 81 mL/min (>60); Est Glom Filt Rate - Afr Amer 98 mL/min (>60); Estimated Creatinine Clearance 68.33 ml/min; Globulin 3.4 g/dL (2.2-4.2); Glucose 87 mg/dL (74-106); Potassium 2.9 mmol/L (3.5-5.1); Protein, Total 7.2 g/dL (6.4-8.2); Sodium Level 134 mmol/L (136-145)
[2018-10-01 22:45] VITALS: BP 113/73; PULSE 96; RESP 16; O2SAT 100
--- NOTE | 2018-10-01 23:34 | ED.DCSUM_ITS ---
History of Present Illness Chief Complaint: Overdose Informant: Patient Limited by: Intoxicated Onset: Today Timing: Continuous Current Severity: Moderate Maximum Severity: Severe Narrative: The patient presents to the emergency department with crystal meth intoxication. He states that he is a history of alcohol abuse sober for 5 months. Instead of using alcohol, he will use marijuana and occasionally methamphetamines. Today, please were called because he was acting erratically. He is not making any suicidal homicidal threats. He was just internally stimulated and acting abnormally. The patient states that this will happen sometimes when he uses crystal meth. His history does bounce around in his heart. He denies any other symptoms. He denies any pain. He denies any thoughts of self-harm. Prior similar symptoms: Yes Recent Illness/Hospitalization: No Past Medical History - Allergies and Home Meds Allergies/Adverse Reactions: Allergies metronidazole Allergy (Verified 10/01/18 22:03) Unknown ibuprofen Adverse Reaction (Verified 10/01/18 22:03) Upset Stomach naproxen [From Aleve] Adverse Reaction (Verified 10/01/18 22:03) gi upset Primary Care Physician: Josue Cifuentes MD [Primary Care Provider] - Prior records reviewed: Yes Surgical History: - - mechanical mitral valve neck surgery, back surgery, right hip pinned. Smoking Status: Current every day smoker Alcohol: Sober Drugs: Marijuana, - - Methamphetamines - Family History Maternal Family History: Family History (Last Reviewed 08/23/18 @ 11:34 by Valerie Pedroza) Mother Heart disease Father Heart disease CVA (cerebral vascular accident) Brother Heart disease Diabetes Sister Heart disease Family History: Reports: Cancer Paternal Family History: Family History (Last Reviewed 08/23/18 @ 11:34 by Valerie Pedroza) Mother Heart disease Father Heart disease CVA (cerebral vascular accident) Brother Heart disease Diabetes Sister Heart disease Family History: Reports: - - Father with history of blood clot, unclear type. Sibling Family History: Family History (Last Reviewed 08/23/18 @ 11:34 by Valerie Pedroza) Mother Heart disease Father Heart disease CVA (cerebral vascular accident) Brother Heart disease Diabetes Sister Heart disease Family History: Reports: No pertinent history Review of Systems ROS: Unable to Obtain Physical Exam Vital Signs/Narrative: Vital Signs Temp Pulse Resp BP Pulse Ox 10/01/18 22:00 98.1 F 102 H 18 143/113 H 91 Inital Vital Signs reviewed: Yes General: Well nourished, Unkempt Head: Normocephalic, Atraumatic Eyes: Perrl, EOMI ENT: Moist mucous membranes Neck: Supple, Nontender, No lymphadenopathy Cardiovascular: Regular rate, Regular rhythm Respiratory: No distress, CTA bilaterally, Chest nontender Abdomen: Soft, Nontender, Nondistended, Normal bowel sounds Back: Nontender, Normal Inspection Extremities: Nontender, No edema Skin: Normal color, No rash Neurological: Alert, Cranial nerves II-XII grossly intact, Normal Strength, Normal Sensation, Hyperalert Psychological: Agitated Diagnostic/Tx/Re-eval Abnormal Lab Results 10/01/18 10/01/18 10/01/18 22:10 22:10 22:10 WBC 10.7 RBC 4.24 L Hgb 13.4 Hct 38.3 L MCV 90.3 MCH 31.6 MCHC 35.0 RDW 13.3 RDW Differential 43.3 Plt Count 175 MPV 9.4 Immature Gran % (Auto) 0.100 Neut % (Auto) 70.2 H Lymph % (Auto) 11.0 L [place] % (Auto) 11.5 H Eos % (Auto) 7.0 H Baso % (Auto) 0.2 Absolute Neuts (auto) 7.5 Absolute Lymphs (auto) 1.18 Total Counted Not Reportable Sodium 134 L Potassium 2.9 L Chloride 98 Carbon Dioxide 31.0 Anion Gap 5 BUN 12 Creatinine 1.00 Estim Creat Clear Calc 68.33 Est GFR (MDRD) Af Amer 98 Est GFR (MDRD) Non-Af 81 BUN/Creatinine Ratio 12.0 Glucose 87 Calcium 8.8 Total Bilirubin 0.70 AST 68 H ALT 32 Alkaline Phosphatase 98 Total Protein 7.2 Albumin 3.8 Globulin 3.4 Albumin/Globulin Ratio 1.1 Ethyl Alcohol 4.0 - Medical Decision Making Patient presents toxic on methamphetamines. He is internally stimulated and hard to redirect. He was never outwardly violent, but did seem to be a threat to himself as he was going to fall out of bed and would not sit still. Patient was given Geodon and Ativan. Screening labs were obtained were unremarkable with the plan will be to observe the patient until he is clinically sober and he will likely be discharged at that point. Again, he does not voice any thoughts of self-harm. This does seem to be straightforward drug abuse. ED Disposition - Plan for ED Patient: Diagnosis: Methamphetamine abuse Instructions: Drug Abuse Referrals: Josue Cifuentes MD [Primary Care Provider] -
[2018-10-01 23:53] VITALS: BP 116/68; PULSE 74; RESP 13; O2SAT 100
[2018-10-02 00:50] VITALS: BP 156/87; PULSE 75; RESP 18; O2SAT 96
[2018-10-02 02:28] VITALS: BP 95/65; PULSE 69; RESP 13; O2SAT 100
[2018-10-02 04:14] VITALS: BP 91/61; PULSE 74; RESP 14; O2SAT 100
--- NOTE | 2018-10-02 05:23 | ED.RN ---
PT USED FLOOR PORTABLE PHONE TO CALL [facility] FOR [facility]. COFFEE AND PAPER SHIRT GIVEN.
[2018-10-02 05:26] VITALS: BP 105/70; PULSE 72; RESP 18; O2SAT 96
== END 2018-10-02 05:42 | disposition home or self-care (01) ==
LOC: ED 22:20
PROVIDERS: Emergency Provider Emergency Medicine; Family Provider Family Medicine; PCP Family Medicine
DX: F15.10 Other stimulant abuse, uncomplicated (principal); F17.200 Nicotine dependence, unspecified, uncomplicated
CPT/HCPCS: 80053; 80320; 85025; 96361; 96372; 96374; 99285; J7030; G0480; J3486

== ENCOUNTER → 2018-10-08 | Outpatient (CLI) | payer MEDICARE, SELFPAY ==
[2018-10-01 22:00] VITALS: BMI 23.2
[2018-10-08 17:49] LABS: International Normalized Ratio 2.3; Prothrombin Time (Protime)PT. 25.6 SECONDS (11.7-14.9)
== END | disposition home or self-care (01) ==
LOC: LABSPEC 16:58
PROVIDERS: Family Provider Family Medicine; PCP Family Medicine; Referring Provider Family Medicine; Visit Provider Family Medicine
DX: Z95.2 Presence of prosthetic heart valve (principal)
CPT/HCPCS: 85610

== ENCOUNTER → 2018-11-15 | Outpatient (CLI) | payer MEDICARE, SELFPAY ==
[2018-11-15 12:31] LABS: Prothrombin Time (Protime)PT. 62.6 SECONDS (11.7-14.9)
[2018-11-15 12:40] LABS: International Normalized Ratio 7.1
== END | disposition home or self-care (01) ==
LOC: LABSPEC 12:13
PROVIDERS: Family Provider Family Medicine; PCP Family Medicine; Referring Provider Family Medicine; Visit Provider Family Medicine
DX: Z95.2 Presence of prosthetic heart valve (principal)
CPT/HCPCS: 85610

== ENCOUNTER → 2018-12-06 | Outpatient (CLI) | payer MEDICARE, SELFPAY ==
[2018-12-06 16:39] LABS: International Normalized Ratio 7.2; Prothrombin Time (Protime)PT. 63.2 SECONDS (11.7-14.9)
== END | disposition home or self-care (01) ==
LOC: LABSPEC 15:38
PROVIDERS: Family Provider Family Medicine; PCP Family Medicine; Referring Provider Family Medicine; Visit Provider Family Medicine
DX: Z95.2 Presence of prosthetic heart valve (principal)
CPT/HCPCS: 85610

== ENCOUNTER → 2018-12-12 | Outpatient (CLI) | payer MEDICARE, SELFPAY ==
[2018-12-12 13:52] LABS: International Normalized Ratio 2.5; Prothrombin Time (Protime)PT. 27.2 SECONDS (11.7-14.9)
== END | disposition home or self-care (01) ==
LOC: LABSPEC 13:26
PROVIDERS: Family Provider Family Medicine; PCP Family Medicine; Referring Provider Family Medicine; Visit Provider Family Medicine
DX: Z95.2 Presence of prosthetic heart valve (principal)
CPT/HCPCS: 85610

== ENCOUNTER → 2018-12-20 | Outpatient (CLI) | payer MEDICARE, SELFPAY ==
[2018-12-20 11:35] LABS: International Normalized Ratio 1.2; Prothrombin Time (Protime)PT. 14.8 SECONDS (11.7-14.9)
== END | disposition home or self-care (01) ==
LOC: LABSPEC 11:07
PROVIDERS: Family Provider Family Medicine; PCP Family Medicine; Referring Provider Family Medicine; Visit Provider Family Medicine
DX: Z95.2 Presence of prosthetic heart valve (principal)
CPT/HCPCS: 85610

== ENCOUNTER → 2019-01-03 | Outpatient (CLI) | payer MEDICARE, SELFPAY ==
[2018-12-31 13:48] VITALS: BMI 24.4
[2019-01-03 14:39] LABS: International Normalized Ratio 1.3; Prothrombin Time (Protime)PT. 15.5 SECONDS (11.7-14.9)
== END | disposition home or self-care (01) ==
PROVIDERS: Family Provider Family Medicine; PCP Family Medicine; Referring Provider Family Medicine; Visit Provider Family Medicine
DX: I48.0 Paroxysmal atrial fibrillation (principal); Z95.2 Presence of prosthetic heart valve
CPT/HCPCS: 85610

== ENCOUNTER → 2019-01-04 | Outpatient (CLI) | payer MEDICARE, SELFPAY ==
[2018-12-31 13:48] VITALS: BMI 24.4
--- NOTE | 2019-01-04 13:06 | VDLE_ITS ---
Reason For Study: Pain RIGHT LEFT GSV is normal. GSV is normal. CFV is compressible, spontaneous, phasic, CFV is compressible, spontaneous, phasic, competent and demonstrates normal competent, and demonstrates normal augmentation. augmentation. FV is compressible, spontaneous, phasic, FV is compressible, spontaneous, phasic, competent and demonstrates normal competent and demonstrates normal augmentation. augmentation. POP V is compressible, spontaneous, phasic, POP V is compressible, spontaneous, phasic, competent and demonstrates normal competent and demonstrates normal augmentation. augmentation. T/P Trunk is compressible. T/P Trunk is compressible. PTV is compressible. PTV is compressible. RT PerV is compressible. LT PerV is compressible. Procedure Exam performed in department. A preliminary report was called and/or faxed to [facility]. Interpretation Summary No evidence for acute deep venous thrombosis bilateral lower extremities with patent and compressible bilateral great saphenous veins. Ordering Physician: Valerie Morales Referring Physician: Jono Cifuentes Performed By: Flori Levi RVT
== END | disposition home or self-care (01) ==
PROVIDERS: Family Provider Family Medicine; PCP Family Medicine; Referring Provider Physician Assistant Medical; Visit Provider Physician Assistant Medical
DX: M79.604 Pain in right leg (principal); M79.605 Pain in left leg
CPT/HCPCS: 93970

== ENCOUNTER → 2019-01-22 | Outpatient (CLI) | payer MEDICARE, SELFPAY ==
[2018-12-31 13:48] VITALS: BMI 24.4
[2019-01-22 11:30] LABS: International Normalized Ratio 3.4; Prothrombin Time (Protime)PT. 34.5 SECONDS (11.7-14.9)
== END | disposition home or self-care (01) ==
PROVIDERS: Family Provider Family Medicine; PCP Family Medicine; Referring Provider Family Medicine; Visit Provider Family Medicine
DX: Z95.2 Presence of prosthetic heart valve (principal)
CPT/HCPCS: 85610

== ENCOUNTER → 2019-02-12 11:42 | Outpatient (CLI) | payer MEDICARE, SELFPAY ==
[2019-02-12 10:57] VITALS: BMI 25.3
[2019-02-12 13:13] LABS: Anion Gap 5 (5-15); BUN 9 mg/dL (7-18); BUN/Creat Ratio 10.1 RATIO (10-20); Calcium,Total 8.9 mg/dL (8.5-10.1); Chloride 100 mmol/L (98-107); Creatinine, Serum 0.89 mg/dL (0.70-1.30); EST Glomerular Filtration Rate 92 mL/min (>60); Est Glom Filt Rate - Afr Amer 112 mL/min (>60); Glucose 88 mg/dL (74-106); Potassium 3.6 mmol/L (3.5-5.1); Sodium Level 136 mmol/L (136-145)
== END ==
PROVIDERS: Family Provider Family Medicine; PCP Family Medicine; Referring Provider Physician Assistant Medical; Visit Provider Physician Assistant Medical
DX: I10 Essential (primary) hypertension (principal)
CPT/HCPCS: 36415; 80048

== ENCOUNTER → 2019-03-18 12:40 | Outpatient (CLI) | payer MEDICARE, SELFPAY ==
[2019-02-12 10:57] VITALS: BMI 25.3
[2019-03-18 12:58] LABS: International Normalized Ratio 1.2; Prothrombin Time (Protime)PT. 15.2 SECONDS (11.7-14.9)
== END ==
PROVIDERS: Family Provider Family Medicine; PCP Family Medicine; Referring Provider Family Medicine; Visit Provider Family Medicine
DX: Z95.2 Presence of prosthetic heart valve (principal)
CPT/HCPCS: 85610

== ENCOUNTER → 2019-03-21 | Outpatient (CLI) | payer MEDICARE, SELFPAY ==
[2019-02-12 10:57] VITALS: BMI 25.3
[2019-03-21 15:43] LABS: International Normalized Ratio 2.4; Prothrombin Time (Protime)PT. 26.5 SECONDS (11.7-14.9)
== END | disposition home or self-care (01) ==
PROVIDERS: Family Provider Family Medicine; PCP Family Medicine; Referring Provider Family Medicine; Visit Provider Family Medicine
DX: Z95.2 Presence of prosthetic heart valve (principal)
CPT/HCPCS: 85610

== ENCOUNTER → 2019-03-22 16:01 | Outpatient (CLI) | payer MEDICARE, SELFPAY ==
[2019-02-12 10:57] VITALS: BMI 25.3
[2019-03-22 16:30] LABS: International Normalized Ratio 2.4; Prothrombin Time (Protime)PT. 25.9 SECONDS (11.7-14.9)
== END ==
PROVIDERS: Family Provider Family Medicine; PCP Family Medicine; Referring Provider Family Medicine; Visit Provider Family Medicine
DX: Z95.2 Presence of prosthetic heart valve (principal)
CPT/HCPCS: 85610

== ENCOUNTER 2019-03-25 17:21 | Emergency (ER) | payer MEDICARE, SELFPAY ==
[2019-02-12 10:57] VITALS: BMI 25.3
[2019-03-25 17:23] VITALS: BP 124/58; PULSE 73; RESP 18; TEMP 36.6; O2SAT 94; BMI 25.7
[2019-03-25 19:26] VITALS: BP 130/78; PULSE 66; RESP 16; O2SAT 98
--- NOTE | 2019-03-25 20:09 | ED.VISSUMM ---
- ER Visit Summary Date of Service: 03/25/19 Chief Complaint: Rectal bleeding History of Present Illness: The patient is a 59 M who presents with rectal bleeding that began today. Patient states he had an episode with black stools today. Patient denies any nausea or vomiting. Patient states he does have some pain over the epigastric and right mid abdomen. Patient describes it as dull. Patient states nothing makes it better or worse. Patient states he had been drinking today. Patient states he drank approximately 5 beers today. Patient states he has been drinking because of his chronic back and neck pain. Patient states he cannot take Tylenol or ibuprofen because of his cirrhosis so he was drinking alcohol instead. Physical Examination: Vital signs are stable. Patient is afebrile. Patient is in no acute distress. Oral mucosa is pink and moist. Neck is supple. Trachea is midline. There is no JVD. Heart was regular rate and rhythm. Lungs are clear and equal bilaterally. Abdomen is soft. Bowel sounds are normal. There is some mild epigastric and right periumbilical tenderness. There is no rebound or guarding noted. There is no fluid wave noted. Cranial nerves II through XII are intact. There are no focal motor or sensory deficits noted. Rectal exam showed good sphincter tone. There is light brown stool. There are no masses palpated. There is no active bleeding. Test Results: CBC showed normal hemoglobin and hematocrit. Comprehensive metabolic profile was within normal limits. INR is 2.2. Stool was Hemoccult positive. Emergency Department Course and Treatment: Patient was given IV fluids here. Case was discussed with Dr. Reddy. He stated that with the patient's history of cirrhosis he does not feel comfortable keeping the patient here in case this is variceal bleeding. Patient initially requested transfer to [facility]. There were no beds available there. There are no beds available at [facility], [facility], or regional medical center. Case was discussed with Dr. Smith from the [facility]. Patient will be transferred to [facility] for further evaluation. Disposition: Transfer to [facility] Impression: Gastrointestinal bleeding This note was generated with [employer] dictation software. It may contain incorrect words, spelling, and punctuation that were not noted in review of the chart prior to signing ED Disposition - Plan for ED Patient: Disposition: Acute Care Hospital - Other Diagnosis: Gastrointestinal bleeding, upper Instructions: GI BLEED, Upper (Stable) Referrals: Josue Cifuentes MD [Primary Care Provider] -
[2019-03-25 20:15] LABS: Absolute Lymphocyte Count 1.27 X10^3/uL (0.83-4.51); Absolute Neutrophil Count 4.1 X10^3/uL (2.0-7.7); Basophil# 0.03 X10^3/uL; Basophil% 0.5 % (0-1); Eosinophil# 0.24 X10^3/uL; Eosinophils% 3.9 % (0-5); Hematocrit 43.7 % (40-54); Hemoglobin 14.9 g/dL (13.0-16.5); Lymphocyte # 1.27 X10^3/ul (4.0); Lymphocyte % 20.7 % (19-41); Mean Corp Hgb Conc 34.1 g/dL (32-36); Mean Corpuscular Hgb 32.3 pg (27.0-32.0); Mean Corpuscular Volume 94.8 fL (80-94); Mean Platelet Vol. 8.9 fl (6.2-12.0); Monocyte# 0.49 X10^3/uL; NRBC Flagged by Analyzer 0 % (0-5); Neutrophil # 4.09 X10^3/uL (2.7-7.7); Neutrophil % 66.4 % (47-70); Platelet Count 176 K/mm3 (150-450); RBC Distribution Width CV 12.1 % (11.6-14.6); RBC Distribution Width SD 41.8 fl (35.1-43.9); Red Blood Count 4.61 M/mm3 (4.6-6.2); White Blood Count 6.2 K/mm3 (4.4-11.0)
[2019-03-25 20:26] LABS: International Normalized Ratio 2.2
[2019-03-25 20:31] LABS: ALB/GLOB Ratio 1.1 RATIO (0.9-2.4); AST(SGOT) 41 U/L (15-37); Alanine Aminotransfer ALT/SGPT 58 U/L (16-61); Albumin, Serum 4.1 g/dL (3.2-5.0); Alkaline Phosphatase 92 U/L (45-117); Anion Gap 7 (5-15); BUN 7 mg/dL (7-18); Chloride 102 mmol/L (98-107); Creatinine, Serum 0.87 mg/dL (0.70-1.30); EST Glomerular Filtration Rate 95 mL/min (>60); Est Glom Filt Rate - Afr Amer 114 mL/min (>60); Estimated Creatinine Clearance 71.76 ml/min; Globulin 3.7 g/dL (2.2-4.2); Glucose 94 mg/dL (74-106); Protein, Total 7.8 g/dL (6.4-8.2); Sodium Level 138 mmol/L (136-145)
[2019-03-25 22:31] VITALS: BP 94/62; PULSE 68; RESP 16; O2SAT 97
[2019-03-25] MEDS: 0.9% Normal Saline 1,000 ML 999 ML IV (22:37)
[2019-03-25 23:32] VITALS: BP 111/57; PULSE 60; RESP 15; O2SAT 96
== END 2019-03-25 23:34 | disposition short-term general hospital (02) ==
PROVIDERS: Emergency Provider Emergency Medicine; Family Provider Family Medicine; PCP Family Medicine
DX: K92.1 Melena (principal); K74.60 Unspecified cirrhosis of liver; Z72.0 Tobacco use; Z79.899 Other long term (current) drug therapy
CPT/HCPCS: 80053; 80320; 82274; 85025; 85610; 96360; 99285; J7030; A4216; G0480

== ENCOUNTER → 2019-04-16 09:49 | Outpatient (CLI) | payer MEDICARE, SELFPAY ==
[2019-03-25 17:23] VITALS: BMI 25.7
[2019-04-16 10:06] LABS: Prothrombin Time (Protime)PT. 57.4 SECONDS (11.7-14.9)
[2019-04-16 10:13] LABS: International Normalized Ratio 6.4
== END ==
PROVIDERS: PCP Family Medicine; Referring Provider Family Medicine; Visit Provider Family Medicine
DX: Z79.01 Long term (current) use of anticoagulants (principal)
CPT/HCPCS: 85610

== ENCOUNTER → 2019-05-01 | Outpatient (CLI) | payer MEDICARE, SELFPAY ==
[2019-05-01 14:30] LABS: Prothrombin Time (Protime)PT. 54.7 SECONDS (11.7-14.9)
== END | disposition home or self-care (01) ==
LOC: LABSPEC 13:35
PROVIDERS: PCP Family Medicine; Referring Provider Family Medicine; Visit Provider Family Medicine
DX: Z79.01 Long term (current) use of anticoagulants (principal)
CPT/HCPCS: 85610

== ENCOUNTER 2019-05-26 15:02 | Emergency (ER) | payer MEDICARE, SELFPAY ==
[2019-05-26 15:03] VITALS: BP 138/84; PULSE 89; RESP 12; TEMP 36.7; O2SAT 92; BMI 24.6
--- NOTE | 2019-05-26 15:34 | CT_ITS ---
STUDY: CT ABDOMEN AND PELVIS WITHOUT CONTRAST REASON FOR EXAM: Male, 59 years old. ABD PAIN X2-3 WEEKS RADIATION DOSAGE (If Supplied By Facility): CTDIvol = ( 6.08 ) mGy, DLP = ( 279.32 ) mGycm TECHNIQUE: Transaxial images were obtained from the dome of the diaphragm to the symphysis pubis without oral contrast, and without intravenous contrast. Sagittal and coronal images were reconstructed. Individualized dose optimization techniques were used for this CT. COMPARISON: 11/16/2016. FINDINGS: The visualized lung bases are unremarkable. The visualized portions of the heart are within normal limits. There is decreased attenuation of the liver consistent with steatosis. There are surgical clips in the gallbladder fossa consistent with a prior cholecystectomy. Normal spleen. Normal pancreas. Normal bilateral adrenal glands. Normal right kidney. Normal left kidney. Normal visualized stomach. Normal small intestine. There are multiple colonic diverticula consistent with diverticulosis. The appendix is visualized and appears normal. There is diffuse atherosclerotic calcification of the abdominal aorta, without a demonstrated aneurysm. Normal inferior vena cava. Normal retroperitoneum. Distended urinary bladder. There are prostatic calcifications. Normal abdominal wall. Right proximal femoral hardware is noted.. CT/Abdomen/Pelvis without Cont IMPRESSION: No acute intra-abdominal process is identified. Electronically Signed: Rodney Caraballo, at 16:53 EST Tel , Service support ,
[2019-05-26 15:59] LABS: Absolute Lymphocyte Count 0.92 X10^3/uL (0.83-4.51); Absolute Neutrophil Count 5.3 X10^3/uL (2.0-7.7); Basophil# 0.02 X10^3/uL; Basophil% 0.3 % (0-1); Eosinophil# 0.11 X10^3/uL; Eosinophils% 1.6 % (0-5); Hematocrit 43.4 % (40-54); Hemoglobin 15.2 g/dL (13.0-16.5); Lymphocyte # 0.92 X10^3/ul (4.0); Lymphocyte % 13.2 % (19-41); Mean Corpuscular Hgb 34.3 pg (27.0-32.0); Monocyte# 0.55 X10^3/uL; Monocyte% 7.9 % (0-10); NRBC Flagged by Analyzer 0 % (0-5); Neutrophil # 5.34 X10^3/uL (2.7-7.7); Neutrophil % 76.7 % (47-70); Platelet Count 209 K/mm3 (150-450); RBC Distribution Width CV 13.7 % (11.6-14.6); RBC Distribution Width SD 50.1 fl (35.1-43.9); Red Blood Count 4.43 M/mm3 (4.6-6.2)
[2019-05-26] MEDS: 0.9% Normal Saline 1,000 ML 1000 ML IV (16:02)
[2019-05-26] MEDS: Morphine 4 MG/ML Syringe IV (16:04)
[2019-05-26] MEDS: Ondansetron 4 MG/2 ML Vial IV (16:04)
[2019-05-26 16:10] LABS: International Normalized Ratio 2.7; Prothrombin Time (Protime)PT. 28.5 SECONDS (11.7-14.9)
[2019-05-26 16:15] LABS: ALB/GLOB Ratio 0.9 RATIO (0.9-2.4); AST(SGOT) 47 U/L (15-37); Alanine Aminotransfer ALT/SGPT 20 U/L (16-61); Albumin, Serum 3.5 g/dL (3.2-5.0); Alkaline Phosphatase 60 U/L (45-117); Anion Gap 9 (5-15); BUN 4 mg/dL (7-18); BUN/Creat Ratio 5.9 RATIO (10-20); Calcium,Total 8.7 mg/dL (8.5-10.1); Chloride 102 mmol/L (98-107); Creatinine, Serum 0.68 mg/dL (0.70-1.30); EST Glomerular Filtration Rate 127 mL/min (>60); Est Glom Filt Rate - Afr Amer 153 mL/min (>60); Estimated Creatinine Clearance 91.81 ml/min; Globulin 3.8 g/dL (2.2-4.2); Glucose 69 mg/dL (74-106); Lipase 75 U/L (73-393); Magnesium 1.7 mg/dL (1.6-2.6); Protein, Total 7.3 g/dL (6.4-8.2); Sodium Level 136 mmol/L (136-145)
[2019-05-26 16:17] LABS: Phosphorus 2.5 mg/dL (2.5-4.9)
[2019-05-26 17:03] VITALS: BP 106/68; PULSE 75; RESP 20; O2SAT 96
--- NOTE | 2019-05-26 17:26 | ED.DCSUM_ITS ---
- ER Visit Summary Date of Service: 05/26/19 Chief Complaint: Abdominal pain History of Present Illness: The patient is a [address] Thomason. He reports that he has had diffuse abdominal pain for 2 weeks. Is gradually gotten worse. Says sharp pain is 10 on 10 at worst 9 out of 10 currently. Is worsened by food and pushing on it. Is relieved by nothing. Reports that he has not been able to eat for the past 2 days. However, he is drinking alcohol each day. Patient reports he was nauseated vomited multiple times yesterday. No blood in his emesis. He reports he is having diarrhea 7-8 times a day for the past 2 weeks. No blood in stools or black tarry stools. No dysuria frequency. Gina jasso reports he is had 4 beers today. Physical Examination: Vitals: Stable. Afebrile. General: Well-nourished and well-developed. Head: Normocephalic atraumatic. Neck: Supple, no lymphadenopathy. No JVD. Nontender. Cardiovascular: Regular rate and rhythm. No murmurs. Respiratory: No respiratory distress. Clear to auscultation bilaterally. Abdominal: Soft, mild diffuse tenderness palpation and moderate epigastric tenderness, nondistended, normal bowel sounds. No guarding, rebound, or peritoneal signs. Back: Nontender. Extremities: Nontender, no edema. Skin: Normal color, no rash. Neurologic: Alert and oriented ?3. Cranial nerves II through XII are intact. Normal strength and sensation. Psych: Normal affect. Test Results: CBC shows segmented neutrophils 77 lymphocytes 13. Chem-7 shows potassium 3.0, glucose 69, creatinine 0.68. LFTs show an AST 47. INR is 2.7. PTT is 50.0. Drug screen shows opiates and marijuana. Serum ketones are negative. Blood alcohol level is 188. Clinical Impression(s) from Imaging Studies Abdomen/Pelvis CT 05/26/19 15:34 IMPRESSION: No acute intra-abdominal process is identified. Electronically Signed: Rodney Caraballo, at 16:53 EST Tel , Service support , Emergency Department Course and Treatment: Clinically I was concerned the patient may have alcoholic ketoacidosis. However his labs are not consistent with that. He was given a liter of normal saline. He was given folic acid and thiamine IV. He is given morphine and Zofran IV. He is resting comfortably. I had a prolonged scratch with him at this time that I do not have an explanation for his abdominal pain but he appears stable from that regard. Patient reports that he would like to get help with his alcohol abuse. Treatment Plan: He was discussed with Dr. Gong. He is not in withdrawal and she asked that he be instructed to have outpatient follow-up with 180. Patient is happy with this plan. He will be discharged with Zofran. [facility] for any worsening symptoms. Disposition: To home in improved and stable condition. Impression: 1. Abdominal pain. 2. Alcoholism. 3. Hypokalemia. This note was generated with [employer] dictation software. It may contain incorrect words, spelling, and punctuation that were not noted in review of the chart prior to signing ED Disposition - Plan for ED Patient: Disposition: Home or Assisted Living Instructions: Alcohol Abuse Prescriptions: Ondansetron [Zofran Odt] 4 mg PO Q8H PRN PRN #10 tab PRN Reason: Nausea Prescription Printed Referrals: [facility] [STAFF PHYSICIAN] - As soon as possible
[2019-05-26 18:36] LABS: Amphetamine Urine VISTA NEGATIVE (<1000 ng/mL); Barbiturate Urine VISTA NEGATIVE (< 200 ng/mL); Benzodiazepine Urine VISTA NEGATIVE (< 200 ng/mL); Cocaine Urine VISTA NEGATIVE (< 300 ng/mL); Ecstacy Urine VISTA NEGATIVE (< 500 ng/mL); Methadone Urine VISTA NEGATIVE (< 300 ng/mL); PCP Urine VISTA NEGATIVE (< 25 ng/mL); THC Urine VISTA POSITIVE (< 50 ng/mL); Vista UDS pH Range 6
[2019-05-26 19:47] VITALS: BP 165/82; PULSE 75; RESP 13; O2SAT 97
[2019-05-26 20:30] VITALS: BP 116/74; PULSE 70; RESP 16
== END 2019-05-26 20:31 | disposition home or self-care (01) ==
PROVIDERS: Emergency Provider Emergency Medicine; PCP Family Medicine
DX: R10.84 Generalized abdominal pain (principal); E87.6 Hypokalemia; F10.20 Alcohol dependence, uncomplicated; J44.9 Chronic obstructive pulmonary disease, unspecified; I10 Essential (primary) hypertension; I48.91 Unspecified atrial fibrillation; Z72.0 Tobacco use; Z79.01 Long term (current) use of anticoagulants; Z79.899 Other long term (current) drug therapy
CPT/HCPCS: 74176; 80053; 80307; 80320; 82009; 83690; 83735; 84100; 85025; 85610; 85730; 96361; 96365; 96375; 99285; J7030; A4216; G0480; J2405; J3490

== ENCOUNTER 2019-06-19 09:35 | Inpatient (IN) | payer MEDICARE, MEDICAID, SELFPAY ==
[2019-06-19] VITALS (11 sets, daily range): BP systolic 116–146; BP diastolic 61–95; PULSE 69–99; RESP 13–20; TEMP 36.6–36.9; O2SAT 93–97; BMI 23.1; BMI 24.3
--- NOTE | 2019-06-19 10:12 | EKG12_ITS ---
Test Reason : SUB ABUSE Blood Pressure : / mmHG Vent. Rate : 081 BPM Atrial Rate : 081 BPM P-R Int : 182 ms QRS Dur : 116 ms QT Int : 448 ms P-R-T Axes : 049 028 049 degrees QTc Int : 520 ms Atrial-sensed ventricular-paced rhythm Abnormal ECG Confirmed by MERLINE CORBETT, JALEEL ([id number]), newspaper editor managing RAYNA ALVA ([id number]) on 06/20/2019 1:38:39 PM Referred By: Brandi Gong Confirmed By:JALEEL RICK MD
--- NOTE | 2019-06-19 10:12 | CT_ITS ---
STUDY: CT ABDOMEN AND PELVIS WITHOUT CONTRAST REASON FOR EXAM: Male, 59 years old. ABD PAIN, ETOH RADIATION DOSAGE (If Supplied By Facility): CTDIvol = ( 11.05 ) mGy, DLP = ( 401.42 ) mGycm TECHNIQUE: Transaxial images were obtained from the dome of the diaphragm to the symphysis pubis without oral contrast, and without intravenous contrast. Sagittal and coronal images were reconstructed. Individualized dose optimization techniques were used for this CT. COMPARISON: Comparison is made with prior study dated May 26, 2019. FINDINGS: The visualized lung bases are unremarkable. Dual-chamber pacemaker is seen. There is decreased attenuation of the liver consistent with steatosis. There are surgical clips in the gallbladder fossa consistent with a prior cholecystectomy. Normal spleen. Normal pancreas. Normal bilateral adrenal glands. Normal right kidney. Normal left kidney. Normal visualized stomach. Mildly distended fluid-filled small bowel loops in the lower abdomen. The colon is not well distended. I suspect possible colonic wall thickening of the ascending and descending colons. Colitis should be ruled out. The appendix is visualized and appears normal. There is diffuse atherosclerotic calcification of the abdominal aorta, without a demonstrated aneurysm. Normal inferior vena cava. Normal retroperitoneum. Distended urinary bladder. There are prostatic calcifications. Normal abdominal wall. There is evidence of prior ORIF of a right intertrochanteric fracture. CT/Abdomen/Pelvis W IV Cont ONLY IMPRESSION: Fatty infiltration of the liver. Distended urinary bladder. Mildly dilated fluid-filled small bowel loops in the lower abdomen. Findings suggestive colitis involving the right and left hemicolon. Electronically Signed: Zacarias Bennett, at 12:11 EDT , Service support ,
[2019-06-19] MEDS: 0.9% Normal Saline 1,000 ML 1000 ML IV (10:24)
[2019-06-19 10:25] LABS: Bacteria 0 SEEN /hpf (None Seen); Mucous, Urine 0 SEEN /hpf (<or=2+); White Blood Cells 0 SEEN /hpf (0-5)
[2019-06-19] MEDS: Ondansetron 4 MG/2 ML Vial IV ×2 (10:25→20:18)
[2019-06-19] MEDS: Famotidine 200 MG/20 ML MDV 20 MG in 0.9% Normal Saline (Pres. free 8 ML 300 MG IV (10:25)
[2019-06-19 10:28] LABS: Absolute Lymphocyte Count 0.82 X10^3/uL (0.83-4.51); Absolute Neutrophil Count 4.3 X10^3/uL (2.0-7.7); Basophil# 0.03 X10^3/uL; Basophil% 0.5 % (0-1); Eosinophil# 0.17 X10^3/uL; Eosinophils% 2.9 % (0-5); Hematocrit 44.1 % (40-54); Hemoglobin 15.7 g/dL (13.0-16.5); Lymphocyte # 0.82 X10^3/ul (4.0); Lymphocyte % 13.9 % (19-41); Mean Corp Hgb Conc 35.6 g/dL (32-36); Mean Corpuscular Hgb 35.4 pg (27.0-32.0); Mean Corpuscular Volume 99.3 fL (80-94); Mean Platelet Vol. 9.5 fl (6.2-12.0); Monocyte# 0.57 X10^3/uL; Monocyte% 9.7 % (0-10); NRBC Flagged by Analyzer 0 % (0-5); Neutrophil # 4.27 X10^3/uL (2.7-7.7); Neutrophil % 72.7 % (47-70); Platelet Count 195 K/mm3 (150-450); RBC Distribution Width CV 14.5 % (11.6-14.6); RBC Distribution Width SD 52.1 fl (35.1-43.9); Red Blood Count 4.44 M/mm3 (4.6-6.2); White Blood Count 5.9 K/mm3 (4.4-11.0)
[2019-06-19 10:29] LABS: Color, Urine Straw (Yellow); Glucose, Dipstick Normal (Normal); Ketone-Dipstick Negative (Negative); Leukocyte Esterase-Dipstick Negative /ul (Negative); Nitrite-Dipstick Negative (Negative); Occult Blood-Urine 10 /ul (Negative); Protein-Dipstick Negative (Negative); Specific Gravity, Urine 1.005 (1.002-1.030); Urine Bilirubin Dipstick Negative (Negative); Urine Clarity Clear (Clear); Urine Urobilinogen Normal (Normal)
--- NOTE | 2019-06-19 10:46 | CM.ED ---
Social Work Consult: Substance Abuse Informant: Dr. Henriquez Chief Complaint: Patient wanting help with my drinking. Living Situation: Lives alone Marital/Social History: Single. Girlfriend of 10 years, Catherine. Has 2 adult daughters. Support/Resources: Catherine. Patient stating it has been 6 months since patient saw daughters. Active with [employer]. Has aides on Tuesdays and . Receives MOW's and Taxi passes. Follows with Dr. Wallace at [facility] and [facility] for counseling services. ADL's/Functioning: Can dress self. Has not driven in 10 years. Education/Employment: Disability. Reports to I can't think straight, I got Dementia. Mental Health Treatment/History: Depression, Anxiety. Patient stating that Dr. Walalce prescribed patient medication but I have not been taking my meds. Patient stating that last counseling appointment that patient went to was 4 months ago. Patient stating to see Dr. Wallace every 3 months. Patient denies any inpatient psychiatric placement. Substance Abuse/Use: Patient stating to drink around 9 a day. Patient clarifying 9 as 9 16 ounce cans of beer daily. Patient stating to have last drank a 24ounce beer a few hours ago. Patient stating to have a history of using THC and currently smokes tobacco daily. Patient stating to have gone through detox 7 other times. Patient stating This is going to be the one. Patient stating to have tried AA in the past but is not currently attending. Risk to Self/Others: Patient denies any history or current thoughts of suicide/homicide. Patient stating I want to get well. Mental status: A&Ox3 General Appearance/Behavior: Calm, tired. Responds to questions. Assessment: Met with patient in room. Introduced self as well as social work manager role. Patient is agreeable to meeting with this social work manager. Patient stating to be seeking detox from alcohol. This social work manager educating patient on the [facility] program through [facility] that can offer medical assistance in managing withdrawal symptoms, patient is interested in this program. Collaborating with Dr. Henriquez. Dr. Henriquez plans to complete medical work up for patient as patient is reporting stomach pain as well and then speak with hospitalist. Mariama Corley MSW, ALEXANDREA
[2019-06-19 10:47] LABS: Amphetamine Urine VISTA NEGATIVE (<1000 ng/mL); Barbiturate Urine VISTA NEGATIVE (< 200 ng/mL); Benzodiazepine Urine VISTA NEGATIVE (< 200 ng/mL); Cocaine Urine VISTA NEGATIVE (< 300 ng/mL); Ecstacy Urine VISTA NEGATIVE (< 500 ng/mL); Methadone Urine VISTA NEGATIVE (< 300 ng/mL); PCP Urine VISTA NEGATIVE (< 25 ng/mL); THC Urine VISTA POSITIVE (< 50 ng/mL); Vista UDS pH Range 6
[2019-06-19 10:49] LABS: ALB/GLOB Ratio 0.8 RATIO (0.9-2.4); AST(SGOT) 72 U/L (15-37); Alanine Aminotransfer ALT/SGPT 36 U/L (16-61); Albumin, Serum 3.5 g/dL (3.2-5.0); Alkaline Phosphatase 72 U/L (45-117); Anion Gap 9 (5-15); BUN 2 mg/dL (7-18); BUN/Creat Ratio 2.9 RATIO (10-20); Calcium,Total 8.6 mg/dL (8.5-10.1); Chloride 100 mmol/L (98-107); Creatinine, Serum 0.69 mg/dL (0.70-1.30); EST Glomerular Filtration Rate 125 mL/min (>60); Est Glom Filt Rate - Afr Amer 151 mL/min (>60); Estimated Creatinine Clearance 90.48 ml/min; Globulin 4.5 g/dL (2.2-4.2); Glucose 85 mg/dL (74-106); Lipase 134 U/L (73-393); Potassium 2.8 mmol/L (3.5-5.1); Sodium Level 135 mmol/L (136-145)
[2019-06-19 10:56] LABS: Red Blood Cells-Urine 0-5 SEEN /hpf (0-5); Squamous Epithelial Cells - UA 0-5 SEEN /hpf (0-5)
[2019-06-19 10:57] LABS: International Normalized Ratio 1.6
--- NOTE | 2019-06-19 10:59 | ED.VIS.GEN ---
History of Present Illness Chief Complaint: Substance Abuse Informant: Patient Onset: Weeks Context: Gradual Onset Timing: Intermittent Narrative: Patient is a 59-year-old male with extensive medical history including alcohol abuse, cirrhosis, mechanical valve replacement and hypertension presented with concerns of abdominal pain as well as request for alcohol detox. Patient states he thinks he has abdominal pain because of his drinking. His pain seems to be in his epigastric region. He states over the past month he has been having worsening episodes of vomiting and diarrhea which he attributes to his alcohol use. He states he drinks 9-10 beers a day. He states he does not have a drink he starts to get the shakes. He also get worsening abdominal pain. He describes abdominal pain as sharp and nonradiating. He has been drinking for the past 3 months. Prior to that he was sober for 4 months. He denies any liquor or wine use. He does smoke marijuana but denies any other illicit substances. He smokes cigarettes daily. He denies any chest pain or difficulty breathing. He states he has been eating as much and has had a weight loss over the past month because of all of his symptoms. He denies any urinary symptoms. States he is feeling very anxious. Past Medical History - Allergies and Home Meds Allergies/Adverse Reactions: Allergies ibuprofen Adverse Reaction (Verified 06/19/19 09:37) Upset Stomach metronidazole Adverse Reaction (Verified 06/19/19 09:37) Upset Stomach naproxen [From Aleve] Adverse Reaction (Verified 06/19/19 09:37) gi upset Primary Care Physician: Josue Cifuentes MD [Primary Care Provider] - Past Medical History: - - Hypertension, hyperlipidemia, proximal atrial fibrillation, alcohol abuse, history of mitral valve replacement with mechanical valve, history of GI bleed, alcoholic cirrhosis, COPD Surgical History: - - mechanical mitral valve neck surgery, back surgery, right hip pinned. Smoking Status: Current every day smoker Alcohol: Heavy Drugs: Marijuana - Family History Maternal Family History: Family History (Last Reviewed 02/12/19 @ 11:19 by EARLE Shah) Mother Heart disease Father Heart disease CVA (cerebral vascular accident) Brother Heart disease Diabetes Sister Heart disease Family History: Reports: Cancer Paternal Family History: Family History (Last Reviewed 02/12/19 @ 11:19 by EARLE Shah) Mother Heart disease Father Heart disease CVA (cerebral vascular accident) Brother Heart disease Diabetes Sister Heart disease Family History: Reports: - - Father with history of blood clot, unclear type. Sibling Family History: Family History (Last Reviewed 02/12/19 @ 11:19 by EARLE Shah) Mother Heart disease Father Heart disease CVA (cerebral vascular accident) Brother Heart disease Diabetes Sister Heart disease Family History: Reports: No pertinent history Review of Systems General: Reports: Malaise. Denies: Chills, Fever, Sweats Eyes: Denies: Visual changes - bilaterally, Diplopia ENT: Denies: Rhinorrhea, Sore throat Cardiovascular: Denies: Chest pain, Palpitations Respiratory: Denies: Dyspnea, Cough, Dyspnea on exertion Gastrointestinal: Reports: Abdominal pain, Nausea, Vomiting, Diarrhea. Denies: Melena, Hematochezia Genitourinary: Denies: Dysuria, Hematuria, Frequency Musculoskeletal: Reports: Back pain - Chronic, unchanged. Denies: Extremity Pain Skin: Denies: Rash, Wounds Neurological: Reports: Weakness - Generalized. Denies: Headache, Numbness Physical Exam Vital Signs/Narrative: Vital Signs Temp Pulse Resp BP Pulse Ox 06/19/19 09:38 98.0 F 99 17 146/95 H 94 Inital Vital Signs reviewed: Yes General: Well nourished, Well developed, No Acute Distress Head: Normocephalic, Atraumatic Eyes: Perrl, EOMI ENT: No rhinorrhea, TM's clear, Dry mucous membranes Neck: Supple, Nontender, No JVD Cardiovascular: Regular rate, Regular rhythm, No murmurs Respiratory: No distress, CTA bilaterally, Chest nontender. Negative for: Rhonchi, Wheezing Abdomen: Soft, Nondistended, Normal bowel sounds, Tender - diffuse, - - no fluid wave, no ascites . Negative for: Guarding, Rebound tenderness Back: Nontender, Normal Inspection. Negative for: CVA tenderness Extremities: Nontender, No edema Skin: Normal color, No rash Neurological: Alert, Oriented x3, Cranial nerves II-XII grossly intact, Normal Strength, Normal Sensation Psychological: Normal affect, Normal Mood Diagnostic/Tx/Re-eval Chest X-Ray - ED: 2 View, Read by ED Physician, Read by Radiologist, No Acute Disease Clinical Impression(s) from Imaging Studies Abdomen/Pelvis CT 06/19/19 10:12 IMPRESSION: Fatty infiltration of the liver. Distended urinary bladder. Mildly dilated fluid-filled small bowel loops in the lower abdomen. Findings suggestive colitis involving the right and left hemicolon. Electronically Signed: Zacarias Bennett, at 12:11 EDT , Service support , Chest X-Ray 06/19/19 11:16 IMPRESSION: No acute abnormality is seen. Electronically Signed: Zacarias Bennett, at 12:06 EDT , Service support , Laboratory Data 06/19/19 06/19/19 06/19/19 10:15 10:15 10:15 WBC 5.9 RBC 4.44 L Hgb 15.7 Hct 44.1 MCV 99.3 H MCH 35.4 H MCHC 35.6 RDW Std Deviation 52.1 H RDW Coeff of Harjeet 14.5 Plt Count 195 MPV 9.5 Immature Gran % (Auto) 0.300 Neut % (Auto) 72.7 H Lymph % (Auto) 13.9 L Mclean % (Auto) 9.7 Eos % (Auto) 2.9 Baso % (Auto) 0.5 Absolute Neuts (auto) 4.3 Absolute Lymphs (auto) 0.82 L Nucleated RBC % 0 PT INR Sodium 135 L Potassium 2.8 L Chloride 100 Carbon Dioxide 26.0 Anion Gap 9 BUN 2 L Creatinine 0.69 L Estim Creat Clear Calc 90.48 Est GFR (MDRD) Af Amer 151 Est GFR (MDRD) Non-Af 125 BUN/Creatinine Ratio 2.9 L Glucose 85 Calcium 8.6 Magnesium Total Bilirubin 0.50 AST 72 H ALT 36 Alkaline Phosphatase 72 Troponin I < 0.015 Total Protein 8.0 Albumin 3.5 Globulin 4.5 H Albumin/Globulin Ratio 0.8 L Lipase 134 Urine Color Urine Clarity Urine pH Ur Specific [place] Urine Protein Urine Glucose (UA) Urine Ketones Urine Occult Blood Urine Nitrite Urine Bilirubin Urine Urobilinogen Ur Leukocyte Esterase Urine RBC Urine WBC Ur Squamous Epith Cells Urine Bacteria Urine Mucus Urine Opiates Screen Urine Methadone Screen Ur Barbiturates Screen Ur Phencyclidine Scrn Ur Amphetamines Screen U Methamphetamin-MDMA U Benzodiazepines Scrn Urine Cocaine Screen U Cannabinoids Screen Ur Drug Screen Comment Ethyl Alcohol 259.0 06/19/19 06/19/19 06/19/19 10:15 10:15 10:15 WBC RBC Hgb Hct MCV MCH MCHC RDW Std Deviation RDW Coeff of Harjeet Plt Count MPV Immature Gran % (Auto) Neut % (Auto) Lymph % (Auto) Mclean % (Auto) Eos % (Auto) Baso % (Auto) Absolute Neuts (auto) Absolute Lymphs (auto) Nucleated RBC % PT 19.0 H INR 1.6 Sodium Potassium Chloride Carbon Dioxide Anion Gap BUN Creatinine Estim Creat Clear Calc Est GFR (MDRD) Af Amer Est GFR (MDRD) Non-Af BUN/Creatinine Ratio Glucose Calcium Magnesium Total Bilirubin AST ALT Alkaline Phosphatase Troponin I Total Protein Albumin Globulin Albumin/Globulin Ratio Lipase Urine Color Straw Urine Clarity Clear Urine pH 7.0 Ur Specific [place] 1.005 Urine Protein Negative Urine Glucose (UA) Normal Urine Ketones Negative Urine Occult Blood 10 H Urine Nitrite Negative Urine Bilirubin Negative Urine Urobilinogen Normal Ur Leukocyte Esterase Negative Urine RBC 0-5 SEEN Urine WBC 0 SEEN Ur Squamous Epith Cells 0-5 SEEN Urine Bacteria 0 SEEN Urine Mucus 0 SEEN Urine Opiates Screen NEGATIVE Urine Methadone Screen NEGATIVE Ur Barbiturates Screen NEGATIVE Ur Phencyclidine Scrn NEGATIVE Ur Amphetamines Screen NEGATIVE U Methamphetamin-MDMA NEGATIVE U Benzodiazepines Scrn NEGATIVE Urine Cocaine Screen NEGATIVE U Cannabinoids Screen POSITIVE H Ur Drug Screen Comment Ethyl Alcohol 06/19/19 10:15 WBC RBC Hgb Hct MCV MCH MCHC RDW Std Deviation RDW Coeff of Harjeet Plt Count MPV Immature Gran % (Auto) Neut % (Auto) Lymph % (Auto) Mclean % (Auto) Eos % (Auto) Baso % (Auto) Absolute Neuts (auto) Absolute Lymphs (auto) Nucleated RBC % PT INR Sodium Potassium Chloride Carbon Dioxide Anion Gap BUN Creatinine Estim Creat Clear Calc Est GFR (MDRD) Af Amer Est GFR (MDRD) Non-Af BUN/Creatinine Ratio Glucose Calcium Magnesium 1.9 Total Bilirubin AST ALT Alkaline Phosphatase Troponin I Total Protein Albumin Globulin Albumin/Globulin Ratio Lipase Urine Color Urine Clarity Urine pH Ur Specific [place] Urine Protein Urine Glucose (UA) Urine Ketones Urine Occult Blood Urine Nitrite Urine Bilirubin Urine Urobilinogen Ur Leukocyte Esterase Urine RBC Urine WBC Ur Squamous Epith Cells Urine Bacteria Urine Mucus Urine Opiates Screen Urine Methadone Screen Ur Barbiturates Screen Ur Phencyclidine Scrn Ur Amphetamines Screen U Methamphetamin-MDMA U Benzodiazepines Scrn Urine Cocaine Screen U Cannabinoids Screen Ur Drug Screen Comment Ethyl Alcohol - Rhythm Strip Rhythm Strip: - paced Rate: 81 Ectopy: None - EKG Initial EKG Interpretation: Paced, - - Atrial sensed ventricular paced rhythm at a rate of 81 QTc [address] segments Compared to prior EKG on 09/29/2017 patient has no changes - Medical Decision Making Patient is evaluated for abdominal pain as well as alcohol dependency. Patient's last drink was this morning. Patient does appear slightly intoxicated however he is behaving appropriately. In addition patient has been having worsening abdominal pain as well as nausea, vomiting and diarrhea over the past month. Patient has normal white blood cell count. His abdomen is soft he does not have pain on proportion. I do not suspect ischemic colitis at this time. Patient's hemoglobin is normal. He does have a subtherapeutic INR. Likely patient will require bridge of Lovenox until his Coumadin becomes therapeutic again. CT of the abdomen pelvis does show colitis. Likely this is the cause of his abdominal pain and diarrhea. Patient started on antibiotics, Cipro and Flagyl. He does have Flagyl listed as an allergy but it is an intolerance causing nausea. At this time I feel that the benefits outweigh the risk. Patient's alcohol level is elevated consistent with him drinking this morning. Currently patient does not appear to be in any type of alcohol withdrawal, he is not tachycardic, altered or hypertensive. Patient does have a mildly elevated AST which is consistent with alcohol abuse. Patient be admitted to medicine service for colitis as well and his evaluation for alcohol detox. Patient is hemodynamically stable for the general medical floor at time of disposition. He is agreeable with this plan. He is given potassium replacement in the emergency room as well for his hypokalemia. Likely this is from GI loss associated with his diarrhea. ED Disposition - Plan for ED Patient: Disposition: Acute Care [facility] Diagnosis: Colitis, Hypokalemia, Alcohol dependence, Subtherapeutic international normalized ratio (INR) Referrals: Josue Cifuentes MD [Primary Care Provider] -
--- NOTE | 2019-06-19 11:16 | RAD_ITS ---
STUDY: X-RAY CHEST REASON FOR EXAM: Male, 59 years old. SOB HX OF COPD/EMPHYSEMA. HX OF SUBSTANCE ABUSE, PACER AND MECHANICAL VALVE. TECHNIQUE: PA and lateral views of the chest. COMPARISON: Comparison is made with prior examination dated June 24, 2017. FINDINGS: EKG electrodes are seen. The lungs are clear and expanded. There is no demonstrated pleural abnormality. Sternal cerclage wires are present from a prior sternotomy. The patient is status post mitral valve replacement. A left-sided dual chamber pacemaker is seen. Calcified lymph node in the aortopulmonary window. This is unchanged. Normal visualized pulmonary arteries. Normal visualized aortic arch and descending thoracic aorta. There is demineralization of the osseous structures. Normal visualized ribs, clavicles, and shoulders. There is no demonstrated abnormality of the visualized soft tissue structures of the upper abdomen. RAD/Chest PA and Lateral IMPRESSION: No acute abnormality is seen. Electronically Signed: Zacarias Bennett, at 12:06 EDT , Service support ,
[2019-06-19] MEDS: Potassium Chloride 10mEq/100mL 10 MEQ/100 ML IV.SOLN. 100 MEQ IV BOLUS ×4 (11:45→15:20)
[2019-06-19 11:49] LABS: Magnesium 1.9 mg/dL (1.6-2.6)
--- NOTE | 2019-06-19 12:36 | CM.ED ---
Social Work Patient to be admitted for colitis and medical management of withdrawal symptoms. Telephone call to [facility]. Patsy reporting plan to see patient tomorrow. Mariama JARA, ALEXANDREA
[2019-06-19] MEDS: metroNIDAZOLE 500 MG/100 ML BAG 100 MG IV ×2 (12:53→23:26)
--- NOTE | 2019-06-19 12:54 | NURSING ---
med surg colitis, alcohol detox [facility]
--- NOTE | 2019-06-19 13:02 | ED.RN ---
DETOX CONTRACT REVIEWED WITH THE PATIENT AT THIS TIME. PATIENT HAS NO QUESTIONS OR CONCERNS.
--- NOTE | 2019-06-19 13:39 | HP.PCM_ITS ---
History of Present Illness Date of Admission: 06/19/19 Chief Complaint: abdominal pain The patient is a 59 year old M with an extensive PMH as outlined. He was admitted via the Ed with a complaint of abdominal pain and diarrhea. Patient has a history of chronic alcohol abuse as well as alcoholic liver cirrhosis. He says he has been drinking heavily for the past few months. He however started having severe abdominal pain a few days ago which gradually worsened. He had associated diarrhea which was nonbloody but he said it looked greasy though it was not difficult to flush. He also had some associated nausea and vomiting which have resolved at time of admission. Pain was sharp and generalized with n o aggravating or relieving factors. He denied any fever or chills, cough or chest pain or shortness of breath. Review of symptoms otherwise negative. Family decided to come to the hospital because the abdominal pain was making it difficult for him to drink as much as he wanted to. On arrival in the ED, temperature was 98 Fahrenheit with blood pressure of 123/61, pulse rate of 84 and respiratory rate of 20. Pulse ox is 96% on room air. Chemistry shows sodium of 135 and potassium of 2.8 with creatinine of 0.69. Magnesium was 1.9. CBC showed hemoglobin of 15.7 and platelets of 195. Abdominopelvic CT showed fatty infiltration of the liver with distended urinary bladder and mildly dilated fluid-filled small bowel loops in the lower abdomen suggestive of colitis of the right and left hemicolon. He has been admitted to be managed for colitis and acute alcohol withdrawal. His last drink was this morning. [] Past Medical History Past Medical History (Chronic Problems): Chronic Problems (Last Reviewed 02/12/19 @ 11:19 by EARLE Shah) Essential hypertension (Chronic) Alcohol abuse (Chronic) H/O mitral valve replacement with mechanical valve (Chronic ~2009) 27mm mechanical [employer] Sharan Mitral Valve prosthesis Nonrheumatic aortic (valve) insufficiency (Chronic) Hyperlipidemia (Chronic) Presence of permanent cardiac pacemaker (Chronic) Paroxysmal atrial fibrillation (Chronic) Medical History: Medical History (Last Reviewed 02/12/19 @ 11:19 by EARLE Shah) Essential hypertension (Chronic) I10 Nonrheumatic aortic (valve) insufficiency (Chronic) I35.1 Hyperlipidemia (Chronic) E78.5 Presence of permanent cardiac pacemaker (Chronic) Z95.0 Paroxysmal atrial fibrillation (Chronic) I48.0 Dementia F03.90 Alcoholic cirrhosis K70.30 Alcoholism /alcohol abuse F10.20 BPH (benign prostatic hyperplasia) N40.0 COPD (chronic obstructive pulmonary disease) J44.9 Depression F32.9 History of GI bleed Z87.19 HTN (hypertension) (Inactive) I10 Allergies ibuprofen Adverse Reaction (Verified 06/19/19 09:37) Upset Stomach metronidazole Adverse Reaction (Verified 06/19/19 09:37) Upset Stomach naproxen [From Aleve] Adverse Reaction (Verified 06/19/19 09:37) gi upset Home Medications: Ambulatory Orders Medication Instructions Recorded Ascorbic Acid [Vitamin C] 1,000 mg PO BID 08/18/17 Carvedilol [Coreg (Beta Brock)] 3.125 mg PO BID 08/18/17 Donepezil HCl [Aricept] 10 mg PO QHS 08/18/17 Ferrous Sulfate 325 mg PO DAILY 08/18/17 Finasteride [Proscar] 5 mg PO DAILY 08/18/17 Omeprazole 40 mg PO DAILY 08/18/17 Paroxetine HCl [Paxil] 50 mg PO DAILY 08/18/17 Pramipexole Di-HCl [Mirapex] 0.5 mg PO DAILY 08/18/17 Thiamine Mononitrate (Vit B1) 100 mg PO DAILY 08/18/17 [Vitamin B-1] Trazodone HCl 300 mg PO QHS 08/18/17 budesonide-formoterol HFA 80 2 puff INHALATION BID 05/31/18 mcg-4.5 mcg/actuation aerosol inhaler potassium chloride 10 mEq 30 meq PO BID 07/19/18 tablet,extended release acamprosate 333 mg tablet,delayed 666 mg PO TID 08/23/18 release Warfarin [Coumadin] 5 mg PO SUMOTUWETHFR 10/01/18 atorvastatin 20 mg tablet 20 mg PO QHS #30 tab 11/07/18 oxybutynin chloride 5 mg tablet 5 mg PO TID tab 11/29/18 furosemide 40 mg tablet 60 mg PO BID tab 12/31/18 lisinopril 10 mg tablet 10 mg PO DAILY #90 tab 04/26/19 Folic Acid 1 mg PO DAILY 05/26/19 Sennosides/Docusate Sodium 1 ea PO BID 05/26/19 [Senexon-S 50-8.6 mg Tablet] Surgical History: Surgical History (Last Reviewed 02/12/19 @ 11:19 by EARLE Shah) H/O mitral valve replacement with mechanical valve (Chronic) Onset Date: ~[address] Sharan Mitral Valve prosthesis History of arthroscopy of left shoulder Z98.890 History of cholecystectomy Z98.890, Z90.49 History of hernia repair Z98.890, Z87.19 History of sinus surgery Z98.890 Status post mitral valve replacement Onset Date: ~[address] Sharan Mitral Valve prosthesis Surgical History: - - mechanical mitral valve neck surgery, back surgery, right hip pinned. Psychiatric History: Anxiety Lives: Alone Smoking Status: Heavy Smoker (>10/day) Tobacco Use: Cigarettes Alcohol: Heavy Drugs: Marijuana - *Family History Maternal Family History: Family History (Last Reviewed 02/12/19 @ 11:19 by EARLE Shah) Mother Heart disease Father Heart disease CVA (cerebral vascular accident) Brother Heart disease Diabetes Sister Heart disease History Items: Cancer Paternal Family History: Family History (Last Reviewed 02/12/19 @ 11:19 by EARLE Shah) Mother Heart disease Father Heart disease CVA (cerebral vascular accident) Brother Heart disease Diabetes Sister Heart disease History Items: - - Father with history of blood clot, unclear type. Sibling Family History: Family History (Last Reviewed 02/12/19 @ 11:19 by EARLE Shah) Mother Heart disease Father Heart disease CVA (cerebral vascular accident) Brother Heart disease Diabetes Sister Heart disease History Items: No pertinent history Review of Systems Constitutional: Denies: Chills, Fever, Malaise, Weakness, Weight Change Eyes: Denies: Blurred vision HEENT: Denies: Head Aches, Sinus Congestion, Sinus Drainage Cardiovascular: Denies: Chest Pain, Palpitations Respiratory: Denies: Cough, Shortness of Breath, Shortness of breath at rest, Shortness of breath upon exertion, Sputum production Gastrointestinal: Reports: Abdominal Pain, Diarrhea, Nausea, Vomiting. Denies: Dyspepsia, Hematemesis, Hematochezia, Melena Genitourinary: Denies: Dysuria Musculoskeletal: Denies: Joint Pain, Joint Tenderness Skin: Denies: Rash, Wounds Neurological: Denies: Numbness, Tingling, Focal weakness Psychiatric: Denies: Anxiety, Depression, Homicidal Ideations, Suicidal Ideations Hematologic/ Lymphatic: Denies: Easy Bruising, Easy Bleeding VTE Information - Inpt Only VTE Present on Admission: No VTE Pharm Prophylaxis ordered?: Yes Patient Problems: Active and Suspected Problems (Last Reviewed 02/12/19 @ 11:19 by EARLE Shah) Colitis (Acute) Hypokalemia (Acute) Alcohol dependence (Acute) Subtherapeutic international normalized ratio (INR) (Acute) - Physical Exam Vitals/I&O's: Vital Signs Temp Pulse Resp BP Pulse Ox 98.0 F 82 18 145/76 H 96 06/19/19 12:42 06/19/19 13:01 06/19/19 13:01 06/19/19 13:01 06/19/19 13:01 Oxygen Delivery Method Room Air Weight: 137 lb 5.568 oz Body Mass Index (BMI) 24.3 Finger Stick Blood Glucose 109 Intake and Output for Last 24 Hours 06/17/19 06/18/19 06/19/19 23:59 23:59 23:59 Intake Total 1110 / 1110 Balance 1110 / 1110 General: Alert, Oriented x3, Cooperative, No apparent distress HEENT: Atraumatic, PERRLA, EOMI, Normocephalic Oral: Moist Mucosa Neck: Supple, No JVD, Negative Carotid Bruits Lungs: Clear to auscultation, Normal air movement, No rhonchi, No wheeze, No rales Cardiovascular: Regular rate, Regular Rhythm, Normal S1, Normal S2, No murmurs Abdomen: Bowel Sounds Present, Soft, Non-Distended, No Hepato-splenomegaly, Tender - mild generalised tenderness, with mild guarding generally, but no rebound tenderness Extremities: No clubbing, No cyanosis, No edema, Capillary Refill Less than 3 Seconds Skin: No rashes, No breakdown Musculoskeletal: No Tenderness to Palpation of Joints or Extremities Lymphatic: No Cervical, Supraclavicular, or Inguinal Adenopathy Neurological: Cranial nerves II-XII grossly intact Psych/Mental Status: Normal Affect, Appropriate, Alert and oriented to time, place, person, mood and affect Laboratory Results 06/19/19 10:15: WBC 5.9, RBC 4.44 L, Hgb 15.7, Hct 44.1, MCV 99.3 H, MCH 35.4 H, MCHC 35.6, RDW Std Deviation 52.1 H, RDW Coeff of Harjeet 14.5, Plt Count 195, MPV 9.5, Immature Gran % (Auto) 0.300, Neut % (Auto) 72.7 H, Lymph % (Auto) 13.[address] L, [place] % (Auto) 9.7, Eos % (Auto) 2.9, Baso % (Auto) 0.5, Absolute Neuts (auto) 4.3, Absolute Lymphs (auto) 0.82 L, Nucleated RBC % 0 06/19/19 10:15: Sodium 135 L, Potassium 2.8 L, Chloride 100, Carbon Dioxide 26.0, Anion Gap 9, BUN 2 L, Creatinine 0.69 L, Estim Creat Clear Calc 90.48, Est GFR (MDRD) Af Amer 151, Est GFR (MDRD) Non-Af 125, BUN/Creatinine Ratio 2.9 L, Glucose 85, Calcium 8.6, Total Bilirubin 0.50, AST 72 H, ALT 36, Alkaline Phosphatase 72, Troponin I < 0.015, Total Protein 8.0, Albumin 3.5, Globulin 4.5 H, Albumin/Globulin Ratio 0.8 L, Lipase 134 06/19/19 10:15: Ethyl Alcohol 259.0 06/19/19 10:15: Urine Opiates Screen NEGATIVE, Urine Methadone Screen NEGATIVE, Ur Barbiturates Screen NEGATIVE, Ur Phencyclidine Scrn NEGATIVE, Ur Amphetamines Screen NEGATIVE, U Methamphetamin-MDMA NEGATIVE, U Benzodiazepines Scrn NEGATIVE, Urine Cocaine Screen NEGATIVE, U Cannabinoids Screen POSITIVE H, Ur Drug Screen Comment 06/19/19 10:15: Urine Color Straw, Urine Clarity Clear, Urine pH 7.0, Ur Specific [place] 1.005, Urine Protein Negative, Urine Glucose (UA) Normal, Urine Ketones Negative, Urine Occult Blood 10 H, Urine Nitrite Negative, Urine Bilirubin Negative, Urine Urobilinogen Normal, Ur Leukocyte Esterase Negative, Urine RBC 0-5 SEEN, Urine WBC 0 SEEN, Ur Squamous Epith Cells 0-5 SEEN, Urine Bacteria 0 SEEN, Urine Mucus 0 SEEN 06/19/19 10:15: PT 19.0 H, INR 1.6 06/19/19 10:15: Magnesium 1.9 Diagnostic Data Abdomen/Pelvis CT 06/19/19 10:12 IMPRESSION: Fatty infiltration of the liver. Distended urinary bladder. Mildly dilated fluid-filled small bowel loops in the lower abdomen. Findings suggestive colitis involving the right and left hemicolon. Electronically Signed: Zacarias Bennett, at 12:11 EDT , Service support , Chest X-Ray 06/19/19 11:16 IMPRESSION: No acute abnormality is seen. Electronically Signed: Zacarias Jiménezcristianoiliana, at 12:06 EDT , Service support , Current Medications Potassium Chloride () 10 meq in 100 mls @ 100 mls/hr IV BOLUS Q1H CRUZ Stop: 06/19/19 15:59 Last Admin: 06/19/19 12:41 Dose: 100 mls/hr Documented by: Sodium Chloride () 250 mls @ 15 mls/hr IV .[id number] PRN PRN Reason: Saline Flush Sodium Chloride () 250 mls @ 15 mls/hr IV .[id number] PRN PRN Reason: Additional IVPB Infusion Sodium Chloride () 10 - 40 ml IV UD PRN PRN Reason: SALINE FLUSH Assessment/Plan All Active Problems (Last Reviewed 02/12/19 @ 11:19 by EARLE Shah) Colitis (Acute) Hypokalemia (Acute) Alcohol dependence (Acute) Subtherapeutic international normalized ratio (INR) (Acute) 67-year-old admitted with a complaint of abdominal pain and diarrhea. 1. Acute colitis * admit to Med Surg with telemetry * CT abdomen and pelvis showed colitis of the right and left hemicolon, as well as fatty liver * keep NPO with only ice chips * stool for enteric pathogen, ova and parasites * hydrate with IVF Ringers Lactate at 75cc/hr * IV zofran; IV ciprofloxacin and IV flagyl * check C Diff * 2. Hypokalemia: K is 2.8. Replace and monitor 3. Alcohol withdrawal: * Alcohol level was 259. Urine tox was positive for cannabinoids. * Put on acute alcohol withdrawal with Ativan. * Monitor CIWA score. * Folic acid, thiamine and Multivite's 4. Hypertension. * On carvedilol. 5. History of alcoholic cirrhosis: As under 3. On acamprosate 6. COPD * On breathing treatments with bronchodilators. On budesonide/formoterol. * 7. Hyperlipidemia: On atorvastatin 8. History of mitral valve replacement and atrial fibrillation: * This was mitral valve replacement with mechanical valve. On Coumadin. * INR is subtherapeutic 1.6. We will continue Coumadin. 9. BPH: On Flomax DVT prophylaxis: On Coumadin. INR subtherapeutic. CODE STATUS: Full code * Patient counseled extensively about different types of CODE STATUS including full code, DNR CCA and DNR CCA. Patient elects to be full code. * Total [id number] time 16 minutes. Inpatient E&M: 79989 Init Hosp L3 Procedures: 80130 Advncd Care Plan 30 Min
--- NOTE | 2019-06-19 13:50 | EKG12_ITS ---
Test Reason : SUB ABUSE Blood Pressure : / mmHG Vent. Rate : 089 BPM Atrial Rate : 089 BPM P-R Int : 144 ms QRS Dur : 112 ms QT Int : 398 ms P-R-T Axes : 057 -02 139 degrees QTc Int : 484 ms Sinus rhythm with Premature atrial complexes Incomplete left bundle branch block ST & T wave abnormality, consider lateral ischemia Prolonged QT Abnormal ECG Confirmed by MERLINE CORBETT, JALEEL ([id number]), television news video editor RAYNA ALVA ([id number]) on 06/20/2019 1:49:58 PM Referred By: Brandi Gong Confirmed By:JALEEL RICK MD
[2019-06-19] MEDS: Oxybutynin 5 MG Tablet PO ×2 (15:40→23:28)
[2019-06-19] MEDS: Lactated Ringers 1,000 ML 75 ML IV (15:40)
[2019-06-19] MEDS: Ciprofloxacin 400 MG/200 ML BAG 200 MG IV ×2 (15:45→21:09)
[2019-06-19] MEDS: LORazepam 1 MG Tablet PO ×3 (17:26→23:28)
[2019-06-19] MEDS: Gabapentin 300 MG Capsule PO (17:27)
[2019-06-19] MEDS: Furosemide 20 MG Tablet 60 MG PO (17:29)
[2019-06-19] MEDS: Budesonide Respules 0.5 MG/2 ML AMPUL.NEB. INHALATION (18:34)
[2019-06-19] MEDS: Albuterol 2.5 MG/3 ML VIAL.NEB. INHALATION (18:34)
[2019-06-19] MEDS: Dicyclomine 10 MG Capsule 20 MG PO (20:18)
[2019-06-19] MEDS: 0.9% Saline Lock 10 ML Syringe IV (20:18)
[2019-06-19] MEDS: traZODone 100 MG Tablet 300 MG PO (23:28)
[2019-06-19] MEDS: Ascorbic Acid 500 MG Tablet 1000 MG PO (23:28)
[2019-06-19] MEDS: Carvedilol 3.125 MG TABLET PO (23:33)
[2019-06-19] MEDS: Donepezil HCl 10 MG Tablet PO (23:33)
[2019-06-19] MEDS: Atorvastatin Calcium 20 MG Tablet PO (23:33)
[2019-06-20] VITALS (13 sets, daily range): BP systolic 128–160; BP diastolic 80–112; PULSE 72–97; RESP 16–18; TEMP 36.6–36.8; O2SAT 92–98
[2019-06-20] MEDS: 0.9% Saline Lock 10 ML Syringe IV ×3 (04:58→21:27)
[2019-06-20] MEDS: LORazepam 1 MG Tablet PO ×6 (04:58→23:54)
[2019-06-20] MEDS: Oxybutynin 5 MG Tablet PO ×3 (05:00→21:28)
[2019-06-20] MEDS: metroNIDAZOLE 500 MG/100 ML BAG 100 MG IV ×3 (05:00→21:27)
[2019-06-20 05:54] LABS: Absolute Lymphocyte Count 0.92 X10^3/uL (0.83-4.51); Absolute Neutrophil Count 4.5 X10^3/uL (2.0-7.7); Basophil# 0.03 X10^3/uL; Basophil% 0.5 % (0-1); Eosinophil# 0.19 X10^3/uL; Hematocrit 36.9 % (40-54); Hemoglobin 13.2 g/dL (13.0-16.5); Lymphocyte # 0.92 X10^3/ul (4.0); Lymphocyte % 14.7 % (19-41); Mean Corp Hgb Conc 35.8 g/dL (32-36); Mean Corpuscular Hgb 35.5 pg (27.0-32.0); Mean Corpuscular Volume 99.2 fL (80-94); Mean Platelet Vol. 9.8 fl (6.2-12.0); Monocyte# 0.57 X10^3/uL; Monocyte% 9.1 % (0-10); NRBC Flagged by Analyzer 0 % (0-5); Neutrophil # 4.54 X10^3/uL (2.7-7.7); Neutrophil % 72.4 % (47-70); Platelet Count 161 K/mm3 (150-450); RBC Distribution Width CV 14.4 % (11.6-14.6); RBC Distribution Width SD 52.2 fl (35.1-43.9); Red Blood Count 3.72 M/mm3 (4.6-6.2); White Blood Count 6.3 K/mm3 (4.4-11.0)
[2019-06-20 06:21] LABS: Anion Gap 10 (5-15); BUN 4 mg/dL (7-18); BUN/Creat Ratio 6.5 RATIO (10-20); Calcium,Total 7.5 mg/dL (8.5-10.1); Chloride 102 mmol/L (98-107); Creatinine, Serum 0.62 mg/dL (0.70-1.30); EST Glomerular Filtration Rate 141 mL/min (>60); Est Glom Filt Rate - Afr Amer 170 mL/min (>60); Estimated Creatinine Clearance 96.63 ml/min; Glucose 58 mg/dL (74-106); Magnesium 1.2 mg/dL (1.6-2.6); Sodium Level 138 mmol/L (136-145)
[2019-06-20] MEDS: Budesonide Respules 0.5 MG/2 ML AMPUL.NEB. INHALATION ×2 (07:00→19:00)
[2019-06-20] MEDS: Albuterol 2.5 MG/3 ML VIAL.NEB. INHALATION ×3 (07:00→19:01)
[2019-06-20] MEDS: Magnesium Sulfate 4gm/100mL 4 GM/100 ML IV.SOLN. IV (09:03)
[2019-06-20] MEDS: Thiamine Hydrochloride 100 MG Tablet PO (09:05)
[2019-06-20] MEDS: Ascorbic Acid 500 MG Tablet 1000 MG PO ×2 (09:05→21:29)
[2019-06-20] MEDS: Pantoprazole Sodium 40 MG Tablet PO (09:06)
[2019-06-20] MEDS: Folic Acid 1 MG Tablet PO (09:06)
[2019-06-20] MEDS: Furosemide 20 MG Tablet 60 MG PO ×2 (09:06→18:07)
[2019-06-20] MEDS: Ferrous Sulfate 325 MG Tablet PO (09:06)
[2019-06-20] MEDS: Lisinopril 10 MG Tablet PO (09:07)
[2019-06-20] MEDS: Paroxetine 20 MG Tablet 40 MG PO (09:08)
[2019-06-20] MEDS: Finasteride 5 MG Tablet PO (09:08)
[2019-06-20] MEDS: PARoxetine 10 MG Tablet PO (09:08)
[2019-06-20] MEDS: Pramipexole Di-HCl 0.5 MG Tablet PO (09:09)
[2019-06-20] MEDS: Carvedilol 3.125 MG TABLET PO ×2 (09:13→21:37)
[2019-06-20] MEDS: Ciprofloxacin 400 MG/200 ML BAG 200 MG IV ×2 (10:10→21:28)
--- NOTE | 2019-06-20 11:22 | CASEMGMT ---
Social Work Note ROSY updated that pt is now not interested in detox and plan is for pt to return home tomorrow. ROSY met with pt to confirm discharge plans. ROSY introduced self and role at [facility]. Pt is alert and orientated x3. Pt states that he does plan on not drinking when he returns home but denied wanting staff from [facility] to come see pt. Pt states that he is linked up with a counselor from [facility] and he saw his counselor last month but was unable to tell this worker his counselor's name. Pt states he will just resume counseling services with [facility] at discharge. SW offered to arrange appointment for pt with [facility], pt denied stating he will make his own appointment when he returns home. SW offered to provide [facility]'s number for pt, pt also denied saying he has [employer] number already. Pt does state he doesn't want to continue to drink when he returns home, but denied wanting this worker to arrange appointment for pt. Pt states he has half a can of beer left in his home but will be throwing out the beer once he gets home. Pt denied additional needs or concerns at this time. ROSY reviewed notes, pt currently has [facility] services. ROSY called [facility], pt's CM is Diane. ROSY left message for Diane updating her on pt's admission to [facility]. Plan: Pt to follow up with [facility] services at discharge Flori Dangelo [employer] CONTROL CHEMICAL TECHNICIAN, [employer]
[2019-06-20] MEDS: Ondansetron 4 MG/2 ML Vial IV (11:33)
--- NOTE | 2019-06-20 12:37 | PN_ITS ---
Patient Problems: Active and Suspected Problems (Last Reviewed 02/12/19 @ 11:19 by EARLE Shah) Colitis (Acute) Hypokalemia (Acute) Alcohol dependence (Acute) Subtherapeutic international normalized ratio (INR) (Acute) Subjective: Patient seen and examined. He feels better today. Diarrhea is improving. Abdominal pain is also getting better. He is requesting for something to eat. He denies any tremors, palpitations, shortness of breath of vomiting. Review of symptoms otherwise negative. Potassium today is 3 and magnesium is 1.2. Vitals/I&O's: Vital Signs Temp Pulse Resp BP Pulse Ox 97.8 F 80 16 136/83 H 97 06/20/19 11:40 06/20/19 11:42 06/20/19 11:40 06/20/19 11:40 06/20/19 11:40 Oxygen Delivery Method Room Air Weight: 137 lb 5.568 oz Body Mass Index (BMI) 24.3 Finger Stick Blood Glucose 109 Intake and Output for Last 24 Hours 06/18/19 06/19/19 06/20/19 23:59 23:59 23:59 Intake Total 2822.5 / 3472.5 2328.75 / 2328.75 Output Total 1999 Balance 2822.5 / 1972.5 328.75 / 328.75 General: Alert, Oriented x3, Cooperative, No apparent distress HEENT: Atraumatic, PERRLA, EOMI, Normocephalic Oral: Moist Mucosa Neck: Supple, No JVD, Negative Carotid Bruits Lungs: Clear to auscultation, Normal air movement, No rhonchi, No wheeze, No rales Cardiovascular: Regular rate, Regular Rhythm, Normal S1, Normal S2, No murmurs Abdomen: Bowel Sounds Present, Soft, Non-Distended, No Hepato-splenomegaly, minimal abdominal tenderness, no guarding or rebound tenderness Extremities: No clubbing, No cyanosis, No edema, Capillary Refill Less than 3 Seconds Skin: No rashes, No breakdown Musculoskeletal: No Tenderness to Palpation of Joints or Extremities Lymphatic: No Cervical, Supraclavicular, or Inguinal Adenopathy Neurological: Cranial nerves II-XII grossly intact Psych/Mental Status: Normal Affect, Appropriate, Alert and oriented to time, place, person, mood and affect Microbiology Past 72 Hours 06/19/19 16:00 Stool Enteric Bacteriology - Final 06/19/19 16:00 Stool C. difficile DNA Amplification - Final Laboratory Results 06/20/19 05:30: WBC 6.3, RBC 3.72 L, Hgb 13.2, Hct 36.9 L, MCV 99.2 H, MCH 35.5 H, MCHC 35.8, RDW Std Deviation 52.2 H, RDW Coeff of Harjeet 14.4, Plt Count 161, MPV 9.8, Immature Gran % (Auto) 0.300, Neut % (Auto) 72.4 H, Lymph % (Auto) 14.7 L, [place] % (Auto) 9.1, Eos % (Auto) 3.0, Baso % (Auto) 0.5, Absolute Neuts (auto) 4.5, Absolute Lymphs (auto) 0.92, Nucleated RBC % 0 06/20/19 05:30: Sodium 138, Potassium 3.0 L, Chloride 102, Carbon Dioxide 26.0, Anion Gap 10, BUN 4 L, Creatinine 0.62 L, Estim Creat Clear Calc 96.63, Est GFR (MDRD) Af Amer 170, Est GFR (MDRD) Non-Af 141, BUN/Creatinine Ratio 6.5 L, Glucose 58 L, Calcium 7.5 L, Magnesium 1.2 L Diagnostic Data Abdomen/Pelvis CT 06/19/19 10:12 IMPRESSION: Fatty infiltration of the liver. Distended urinary bladder. Mildly dilated fluid-filled small bowel loops in the lower abdomen. Findings suggestive colitis involving the right and left hemicolon. Electronically Signed: Zacarias Bennett, at 12:11 EDT , Service support , Chest X-Ray 06/19/19 11:16 IMPRESSION: No acute abnormality is seen. Electronically Signed: Zacarias Bennett, at 12:06 EDT , Service support , Current Medications Albuterol Sulfate (Ventolin Aerosols) 2.5 mg INHALATION Q6HWA.RT CRUZ Last Admin: 06/20/19 07:00 Dose: 2.5 mg Documented by: Ascorbic Acid (Vitamin C) 1,000 mg PO BID [facility] Last Admin: 06/20/19 09:05 Dose: 1,000 mg Documented by: Atorvastatin Calcium (Lipitor) 20 mg PO QHS [facility] Last Admin: 06/19/19 23:33 Dose: 20 mg Documented by: Budesonide (Pulmicort Aerosol) 0.5 mg INHALATION Q12H.RT [facility] Last Admin: 06/20/19 07:00 Dose: 0.5 mg Documented by: Carvedilol (Coreg) 3.125 mg PO BID [facility] Last Admin: 06/20/19 09:13 Dose: 3.125 mg Documented by: Dextrose (D50w Syringe) 0 gm IV X1 PRN; Protocol PRN Reason: Hypoglycemia Dicyclomine HCl (Bentyl) 20 mg PO Q6H PRN PRN PRN Reason: abdominal discomfort Last Admin: 06/19/19 20:18 Dose: 20 mg Documented by: Donepezil HCl (Aricept) 10 mg PO QHS [facility] Last Admin: 06/19/19 23:33 Dose: 10 mg Documented by: Ferrous Sulfate (Ferrous Sulfate) 325 mg PO DAILYCM [facility] Last Admin: 06/20/19 09:06 Dose: 325 mg Documented by: Finasteride (Proscar) 5 mg PO DAILY [facility] Last Admin: 06/20/19 09:08 Dose: 5 mg Documented by: Folic Acid (Folic Acid) 1 mg PO DAILYCM [facility] Last Admin: 06/20/19 09:06 Dose: 1 mg Documented by: Furosemide (Lasix) 60 mg PO BIDLX [facility] Last Admin: 06/20/19 09:06 Dose: 60 mg Documented by: Gabapentin (Neurontin) 300 mg PO Q8H PRN PRN PRN Reason: moderate to severe anxiety Last Admin: 06/19/19 17:27 Dose: 300 mg Documented by: Glucagon () 1 mg IM .X1 PRN PRN Reason: Hypoglycemia Hydroxyzine Pamoate (Vistaril Pamoate Capsule) 50 mg PO Q4H PRN PRN PRN Reason: mild anxiety Sodium Chloride () 250 mls @ 15 mls/hr IV .[id number] PRN PRN Reason: Saline Flush Last Infusion: 06/20/19 11:15 Dose: 15 mls/hr Documented by: Sodium Chloride () 250 mls @ 15 mls/hr IV .[id number] PRN PRN Reason: Additional IVPB Infusion Ciprofloxacin (Cipro) 400 mg in 200 mls @ 200 mls/hr IV Q12 [facility] Last Infusion: 06/20/19 11:14 Dose: Infused Documented by: Metronidazole (Flagyl) 500 mg in 100 mls @ 100 mls/hr IV Q8 [facility] Last Infusion: 06/20/19 06:00 Dose: Infused Documented by: Lisinopril (Zestril) 10 mg PO DAILY [facility] Last Admin: 06/20/19 09:07 Dose: 10 mg Documented by: Loperamide HCl (Imodium) 2 mg PO Q4H PRN PRN PRN Reason: LOOSE STOOLS Lorazepam (Ativan) 2 mg PO Q2H PRN PRN; Protocol PRN Reason: CIWA score > 8 but <15 Lorazepam (Ativan) 2 mg PO UD PRN; Protocol PRN Reason: CIWA score >/=15. Lorazepam (Ativan) 2 mg IV Q2H PRN PRN; Protocol PRN Reason: CIWA score > 8 but <15 Lorazepam (Ativan) 2 mg IV UD PRN; Protocol PRN Reason: CIWA score >/=15. Lorazepam (Ativan) 2 mg PO Q4H [facility]; Taper Stop: 06/23/19 23:59 Last Admin: 06/20/19 11:33 Dose: 2 mg Documented by: Nicotine (Nicoderm Cq (Pbkc)) 21 mg TRANSDERM. DAILY [facility] Last Admin: 06/20/19 09:14 Dose: 21 mg Documented by: Ondansetron HCl (Zofran) 8 mg PO Q8H PRN PRN PRN Reason: NAUSEA Ondansetron HCl (Zofran) 4 mg IV Q8H PRN PRN PRN Reason: NAUSEA/VOMITING Last Admin: 06/20/19 11:33 Dose: 4 mg Documented by: Oxybutynin Chloride (Ditropan) 5 mg PO TID [facility] Last Admin: 06/20/19 05:00 Dose: 5 mg Documented by: Pantoprazole Sodium (Protonix) 40 mg PO DAILY [facility] Last Admin: 06/20/19 09:06 Dose: 40 mg Documented by: Paroxetine HCl (Paxil) 40 mg PO DAILY [facility] Last Admin: 06/20/19 09:08 Dose: 40 mg Documented by: Paroxetine HCl (Paxil) 10 mg PO DAILY [facility] Last Admin: 06/20/19 09:08 Dose: 10 mg Documented by: Potassium Chloride (K-Dur) 30 meq PO BIDCM [facility] Last Admin: 06/20/19 09:05 Dose: 30 meq Documented by: Pramipexole Dihydrochloride (Mirapex) 0.5 mg PO DAILY [facility] Last Admin: 06/20/19 09:09 Dose: 0.5 mg Documented by: Senna/Docusate Sodium (Senokot-S, Jennifer-Colace) 1 tablet PO BID [facility] Last Admin: 06/20/19 09:07 Dose: Not Given Documented by: Sodium Chloride () 10 - 40 ml IV UD PRN PRN Reason: SALINE FLUSH Last Admin: 06/20/19 10:15 Dose: 10 ml Documented by: Thiamine HCl (Vitamin B1) 100 mg PO DAILY@0800 [facility] Last Admin: 06/20/19 09:05 Dose: 100 mg Documented by: Trazodone HCl (Desyrel) 300 mg PO QHS [facility] Last Admin: 06/19/19 23:28 Dose: 300 mg Documented by: Warfarin Sodium (Coumadin (Pbkc)) 5 mg PO SuMoTuWeThFr@1700 [facility] Last Admin: 06/19/19 17:27 Dose: 5 mg Documented by: STROKE Vital Signs/Narrative: Vital Signs Temp Pulse Resp BP Pulse Ox 06/20/19 11:42 80 06/20/19 11:40 97.8 F 75 16 136/83 H 97 06/20/19 09:55 87 06/20/19 09:27 97.8 F 82 16 150/112 H 98 Medical Necessity - Tobacco Use Smoking Status: Heavy Smoker (>10/day) Tobacco Use: Cigarettes Assessment/Plan All Active Problems (Last Reviewed 02/12/19 @ 11:19 by EARLE Shah) Colitis (Acute) Hypokalemia (Acute) Alcohol dependence (Acute) Subtherapeutic international normalized ratio (INR) (Acute) 67-year-old admitted with a complaint of abdominal pain and diarrhea. 1. Acute colitis * CT abdomen and pelvis showed colitis of the right and left hemicolon, as well as fatty liver * abdominal pain is better today * patient on ice chips, will advance to soft diet toay as patient thinks he can tolerate it; to advance as toelrated. * stool for enteric pathogen, ova, parasites and C Diff pending * on IV ciprofloxacin and IV metronidazole * * 2. Hypokalemia and hypomagnesemia: K is 3 today and magnesium is 1.2. Replace and monitor 3. Alcohol withdrawal: * CIWA score today is 6 * on alcohol withdrawal protocol with ativan * Monitor CIWA score. * Folic acid, thiamine and Multivite's 4. Hypertension. * On carvedilol. 5. History of alcoholic cirrhosis: As under 3. acamprosate on hold. 6. COPD * On breathing treatments with bronchodilators. On budesonide/formoterol. * 7. Hyperlipidemia: On atorvastatin 8. History of mitral valve replacement and atrial fibrillation: * This was mitral valve replacement with mechanical valve. On Coumadin. * INR is subtherapeutic 1.6. We will continue Coumadin. INR today is pending 9. BPH: On Flomax DVT prophylaxis: On Coumadin. INR subtherapeutic. CODE STATUS: Full code * Inpatient E&M: 19588 Subs Hosp L3
[2019-06-20] MEDS: hydrOXYzine PAM 25 MG Capsule 50 MG PO ×2 (14:07→18:12)
[2019-06-20 15:18] LABS: International Normalized Ratio 2.8
[2019-06-20] MEDS: DiphenhydrAMINE 25 MG Capsule PO (15:52)
[2019-06-20] MEDS: Gabapentin 300 MG Capsule PO (15:54)
[2019-06-20] MEDS: Famotidine 20 MG Tablet PO (18:07)
[2019-06-20] MEDS: traZODone 100 MG Tablet 300 MG PO (21:30)
[2019-06-20] MEDS: Atorvastatin Calcium 20 MG Tablet PO (21:37)
[2019-06-20] MEDS: Donepezil HCl 10 MG Tablet PO (21:37)
[2019-06-21] VITALS (10 sets, daily range): BP systolic 133–135; BP diastolic 76–83; PULSE 83–110; RESP 16–18; TEMP 36.8–36.9; O2SAT 94–96
[2019-06-21] MEDS: LORazepam 1 MG Tablet PO ×2 (04:04→09:02)
[2019-06-21] MEDS: 0.9% Saline Lock 10 ML Syringe IV (06:03)
[2019-06-21] MEDS: Oxybutynin 5 MG Tablet PO (06:04)
[2019-06-21] MEDS: metroNIDAZOLE 500 MG/100 ML BAG 100 MG IV (06:04)
[2019-06-21] MEDS: Albuterol 2.5 MG/3 ML VIAL.NEB. INHALATION (07:20)
[2019-06-21] MEDS: Budesonide Respules 0.5 MG/2 ML AMPUL.NEB. INHALATION (07:20)
[2019-06-21 08:40] LABS: Anion Gap 6 (5-15); BUN 7 mg/dL (7-18); BUN/Creat Ratio 9.7 RATIO (10-20); Calcium,Total 8.4 mg/dL (8.5-10.1); Chloride 97 mmol/L (98-107); Creatinine, Serum 0.72 mg/dL (0.70-1.30); EST Glomerular Filtration Rate 118 mL/min (>60); Est Glom Filt Rate - Afr Amer 143 mL/min (>60); Estimated Creatinine Clearance 83.21 ml/min; Glucose 107 mg/dL (74-106); Potassium 3.1 mmol/L (3.5-5.1); Sodium Level 133 mmol/L (136-145)
[2019-06-21] MEDS: Ferrous Sulfate 325 MG Tablet PO (09:02)
[2019-06-21] MEDS: Folic Acid 1 MG Tablet PO (09:03)
[2019-06-21] MEDS: Thiamine Hydrochloride 100 MG Tablet PO (09:03)
[2019-06-21] MEDS: Ciprofloxacin 400 MG/200 ML BAG 200 MG IV (09:04)
[2019-06-21] MEDS: Furosemide 20 MG Tablet 60 MG PO (09:05)
[2019-06-21] MEDS: Pramipexole Di-HCl 0.5 MG Tablet PO (09:06)
[2019-06-21] MEDS: Finasteride 5 MG Tablet PO (09:07)
[2019-06-21] MEDS: Paroxetine 20 MG Tablet 40 MG PO (09:07)
[2019-06-21] MEDS: PARoxetine 10 MG Tablet PO (09:07)
[2019-06-21] MEDS: Pantoprazole Sodium 40 MG Tablet PO (09:08)
[2019-06-21] MEDS: Ascorbic Acid 500 MG Tablet 1000 MG PO (09:08)
[2019-06-21] MEDS: Lisinopril 10 MG Tablet PO (09:09)
--- NOTE | 2019-06-21 09:36 | DCINST_ITS ---
- Discharge Diagnoses Current Active Problems: Current Active and Chronic Problems (Last Reviewed 02/12/19 @ 11:19 by EARLE Shah) Colitis (Acute) Hypokalemia (Acute) Alcohol dependence (Acute) Subtherapeutic international normalized ratio (INR) (Acute) You will use the following diet at home:: Cardiac Your food should be the consistency of: Regular Your liquids should be the consistency of: Regular/Thin Discharge Activity: Return to Normal Activity Weight Bearing Status: Weight bearing as tolerated Call your doctor if you observe: Shortness of breath, Swelling in the ankles, Increased palpitations (irregular heartbeat), - - abdominal pain, diarrhea Instructions: ED Gastroenteritis Noninfectious Additional Instructions: [facility] Allergies/Adverse Reactions: Allergies ibuprofen Adverse Reaction (Verified 06/19/19 09:37) Upset Stomach metronidazole Adverse Reaction (Verified 06/19/19 09:37) Upset Stomach naproxen [From Aleve] Adverse Reaction (Verified 06/19/19 09:37) gi upset Medications to take at Discharge Ascorbic Acid [Vitamin C] 1,000 mg PO BID 08/18/17 Carvedilol [Coreg (Beta Brock)] 3.125 mg PO BID 08/18/17 Donepezil HCl [Aricept] 10 mg PO QHS 08/18/17 Ferrous Sulfate 325 mg PO DAILY 08/18/17 Finasteride [Proscar] 5 mg PO DAILY 08/18/17 Omeprazole 40 mg PO DAILY 08/18/17 Paroxetine HCl [Paxil] 50 mg PO DAILY 08/18/17 Pramipexole Di-HCl [Mirapex] 0.5 mg PO DAILY 08/18/17 Thiamine Mononitrate (Vit B1) [Vitamin B-1] 100 mg PO DAILY 08/18/17 Trazodone HCl 300 mg PO QHS 08/18/17 budesonide-formoterol HFA 80 mcg-4.5 mcg/actuation aerosol inhaler 2 puff INHALATION BID 05/31/18 acamprosate 333 mg tablet,delayed release 666 mg PO TID 08/23/18 Warfarin [Coumadin] 5 mg PO SUMOTUWETHFR 10/01/18 atorvastatin 20 mg tablet 20 mg PO QHS #30 tab 08/14/19 oxybutynin chloride 5 mg tablet 5 mg PO TID tab 11/29/18 furosemide 40 mg tablet 60 mg PO BID tab 12/31/18 lisinopril 10 mg tablet 10 mg PO DAILY #90 tab 04/26/19 Folic Acid 1 mg PO DAILY 05/26/19 Sennosides/Docusate Sodium [Senexon-S 50-8.6 mg Tablet] 1 ea PO BID 05/26/19 Potassium Chloride 30 meq PO BID #60 06/21/19 The following prescriptions were given: Potassium Chloride 30 meq PO BID #60 Prescription Printed Primary Care Physician: Josue Cifuentes MD [Primary Care Provider] - Please follow up with your Primary Care Physician in: one week Test Results: Test results from this visit will be discussed in further detail at your follow- up appointment, if applicable. Proposed Discharge Date: 06/21/19
[2019-06-21] MEDS: Carvedilol 3.125 MG TABLET PO (09:42)
--- NOTE | 2019-06-21 09:47 | DS.PCM_ITS ---
Discharge Date and Diagnosis Date of Admission: 06/19/19 Date of Discharge: 06/21/19 - Primary Discharge Diagnosis Active and Suspected Problems (Last Reviewed 02/12/19 @ 11:19 by EARLE Shah) Colitis (Acute) Hypokalemia (Acute) Alcohol dependence (Acute) Subtherapeutic international normalized ratio (INR) (Acute) - Secondary Discharge Diagnosis Chronic Problems (Last Reviewed 02/12/19 @ 11:19 by EARLE Shah) Essential hypertension (Chronic) Alcohol abuse (Chronic) H/O mitral valve replacement with mechanical valve (Chronic ~2009) 27mm mechanical [employer] Mitral Valve prosthesis Nonrheumatic aortic (valve) insufficiency (Chronic) Hyperlipidemia (Chronic) Presence of permanent cardiac pacemaker (Chronic) Paroxysmal atrial fibrillation (Chronic) Hospital Course and Treatment Imaging Results: Diagnostic Data Abdomen/Pelvis CT 06/19/19 10:12 IMPRESSION: Fatty infiltration of the liver. Distended urinary bladder. Mildly dilated fluid-filled small bowel loops in the lower abdomen. Findings suggestive colitis involving the right and left hemicolon. Electronically Signed: Zacarias Bennett, at 12:11 EDT , Service support , Chest X-Ray 06/19/19 11:16 IMPRESSION: No acute abnormality is seen. Electronically Signed: Zacarias Bennett, at 12:06 EDT , Service support , Operations: None Procedures: None Summary of Care Provided: The patient is a 59 year old M with an extensive PMH as outlined. He was admitted via the Ed with a complaint of abdominal pain and diarrhea. Patient has a history of chronic alcohol abuse as well as alcoholic liver cirrhosis. He says he has been drinking heavily for the past few months. He however started having severe abdominal pain a few days ago which gradually worsened. He had associated diarrhea which was nonbloody but he said it looked greasy though it was not difficult to flush. He also had some associated nausea and vomiting which have resolved at time of admission. Pain was sharp and generalized with no aggravating or relieving factors. He denied any fever or chills, cough or chest pain or shortness of breath. Review of symptoms otherwise negative. Family decided to come to the hospital because the abdominal pain was making it difficult for him to drink as much as he wanted to. On arrival in the ED, temperature was 98 Fahrenheit with blood pressure of 123/61, pulse rate of 84 and respiratory rate of 20. Pulse ox is 96% on room air. Chemistry shows sodium of 135 and potassium of 2.8 with creatinine of 0.69. Magnesium was 1.9. CBC showed hemoglobin of 15.7 and platelets of 195. Abdominopelvic CT showed fatty infiltration of the liver with distended urinary bladder and mildly dilated fluid-filled small bowel loops in the lower abdomen suggestive of colitis of the right and left hemicolon. He was admitted to be managed for colitis and acute alcohol withdrawal. Patient was started on IV ofloxacin and Flagyl and hydrated with IV fluids. He was also noted to be hypokalemic with a potassium of 2.8. He was also started on alcohol withdrawal protocol with Ativan. Patient's abdominal pain resolved with treatment and he was able to tolerate a regular diet. His diarrhea also stopped. Potassium improved to 3.1 with IV potassium administration. Magnesium was also low at 1.2 and was replaced. His low electrolytes were thought to be due to chronic alcoholism. Patient's condition improved and was discharged home on 06/21/2019. He is follow-up with his primary care doctor and also counseled to stop drinking. [facility] and preferred to make the call and make the appointment himself. Patient seen and examined prior to discharge. He had no complaints. He feels much better and wanted to go home. Review of symptoms otherwise negative. Labs and vitals reviewed. Home medications reviewed and reconciled. CIWA score was 1. o/e: Vital Signs Height 5 ft 2.99 in Weight: 137 lb 5.568 oz Weight in Pounds 137.3 lbs Pulse Ox 96 Temperature 98.4 F Pulse Rate 104 Respiratory Rate 18 Blood Pressure 134/78 Blood Pressure Position Sitting General: Alert, Oriented x3, Cooperative, No apparent distress HEENT: Atraumatic, PERRLA, EOMI, Normocephalic Oral: Moist Mucosa Neck: Supple, No JVD, Negative Carotid Bruits Lungs: Clear to auscultation, Normal air movement, No rhonchi, No wheeze, No rales Cardiovascular: Regular rate, Regular Rhythm, Normal S1, Normal S2, No murmurs Abdomen: Bowel Sounds Present, Soft, Non-Distended, No Hepato-splenomegaly, minimal abdominal tenderness, no guarding or rebound tenderness Extremities: No clubbing, No cyanosis, No edema, Capillary Refill Less than 3 Seconds Skin: No rashes, No breakdown Musculoskeletal: No Tenderness to Palpation of Joints or Extremities Lymphatic: No Cervical, Supraclavicular, or Inguinal Adenopathy Neurological: Cranial nerves II-XII grossly intact Psych/Mental Status: Normal Affect, Appropriate, Alert and oriented to time, place, person, mood and affect Plan is for discharge home today. He was given a prescription for p.o. potassium 30 mEq twice daily and counseled on compliance. He is follow-up with his primary care doctor for BMP check within 1 week. - Physical Exam Vitals/I&O's: Vital Signs Temp Pulse Resp BP Pulse Ox 98.3 F 104 H 18 134/78 H 96 06/21/19 09:00 06/21/19 09:00 06/21/19 09:00 06/21/19 09:00 06/21/19 09:00 Oxygen Delivery Method Room Air Weight: 137 lb 5.568 oz Body Mass Index (BMI) 24.3 Finger Stick Blood Glucose 109 Intake and Output for Last 24 Hours 06/19/19 06/20/19 06/21/19 23:59 23:59 23:59 Intake Total 2822.5 / 3472.5 3242.75 / 3242.75 Output Total 2550 / 2550 2300 / 2300 Balance 2822.5 / 1972.5 692.75 / 692.75 -2300 / -2300 Microbiology Past 72 Hours 06/19/19 16:00 Stool Enteric Bacteriology - Final 06/19/19 16:00 Stool C. difficile DNA Amplification - Final Laboratory Results 06/20/19 14:49: PT 30.0 H, INR 2.8 06/21/19 08:19: Sodium 133 L, Potassium 3.1 L, Chloride 97 L, Carbon Dioxide 30.0, Anion Gap 6, BUN 7, Creatinine 0.72, Estim Creat Clear Calc 83.21, Est GFR (MDRD) Af Amer 143, Est GFR (MDRD) Non-Af 118, BUN/Creatinine Ratio 9.7 L, Glucose 107 H, Calcium 8.4 L Current Medications Albuterol Sulfate (Ventolin Aerosols) 2.5 mg INHALATION Q6HWA.RT [facility] Last Admin: 06/21/19 07:20 Dose: 2.5 mg Documented by: Ascorbic Acid (Vitamin C) 1,000 mg PO BID [facility] Last Admin: 06/21/19 09:08 Dose: 1,000 mg Documented by: Atorvastatin Calcium (Lipitor) 20 mg PO QHS [facility] Last Admin: 06/20/19 21:37 Dose: 20 mg Documented by: Budesonide (Pulmicort Aerosol) 0.5 mg INHALATION Q12H.RT [facility] Last Admin: 06/21/19 07:20 Dose: 0.5 mg Documented by: Carvedilol (Coreg) 3.125 mg PO BID [facility] Last Admin: 06/21/19 09:42 Dose: 3.125 mg Documented by: Dextrose (D50w Syringe) 0 gm IV X1 PRN; Protocol PRN Reason: Hypoglycemia Dicyclomine HCl (Bentyl) 20 mg PO Q6H PRN PRN PRN Reason: abdominal discomfort Last Admin: 06/19/19 20:18 Dose: 20 mg Documented by: Diphenhydramine HCl (Benadryl) 25 mg PO BID PRN PRN PRN Reason: ITCHING Last Admin: 06/20/19 15:52 Dose: 25 mg Documented by: Donepezil HCl (Aricept) 10 mg PO QHS [facility] Last Admin: 06/20/19 21:37 Dose: 10 mg Documented by: Ferrous Sulfate (Ferrous Sulfate) 325 mg PO DAILYCM [facility] Last Admin: 06/21/19 09:02 Dose: 325 mg Documented by: Finasteride (Proscar) 5 mg PO DAILY [facility] Last Admin: 06/21/19 09:07 Dose: 5 mg Documented by: Folic Acid (Folic Acid) 1 mg PO DAILYCM [facility] Last Admin: 06/21/19 09:03 Dose: 1 mg Documented by: Furosemide (Lasix) 60 mg PO BIDLX [facility] Last Admin: 06/21/19 09:05 Dose: 60 mg Documented by: Gabapentin (Neurontin) 300 mg PO Q8H PRN PRN PRN Reason: moderate to severe anxiety Last Admin: 06/20/19 15:54 Dose: 300 mg Documented by: Glucagon () 1 mg IM .X1 PRN PRN Reason: Hypoglycemia Hydroxyzine Pamoate (Vistaril Pamoate Capsule) 50 mg PO Q4H PRN PRN PRN Reason: mild anxiety Last Admin: 06/20/19 18:12 Dose: 50 mg Documented by: Sodium Chloride () 250 mls @ 15 mls/hr IV .[id number] PRN PRN Reason: Saline Flush Last Infusion: 06/20/19 15:53 Dose: 0 mls/hr Documented by: Sodium Chloride () 250 mls @ 15 mls/hr IV .[id number] PRN PRN Reason: Additional IVPB Infusion Ciprofloxacin (Cipro) 400 mg in 200 mls @ 200 mls/hr IV Q12 [facility] Last Admin: 06/21/19 09:04 Dose: 200 mls/hr Documented by: Metronidazole (Flagyl) 500 mg in 100 mls @ 100 mls/hr IV Q8 [facility] Last Admin: 06/21/19 06:04 Dose: 100 mls/hr Documented by: Lisinopril (Zestril) 10 mg PO DAILY [facility] Last Admin: 06/21/19 09:09 Dose: 10 mg Documented by: Loperamide HCl (Imodium) 2 mg PO Q4H PRN PRN PRN Reason: LOOSE STOOLS Lorazepam (Ativan) 2 mg PO Q2H PRN PRN; Protocol PRN Reason: CIWA score > 8 but <15 Lorazepam (Ativan) 2 mg PO UD PRN; Protocol PRN Reason: CIWA score >/=15. Lorazepam (Ativan) 2 mg IV Q2H PRN PRN; Protocol PRN Reason: CIWA score > 8 but <15 Lorazepam (Ativan) 2 mg IV UD PRN; Protocol PRN Reason: CIWA score >/=15. Lorazepam (Ativan) 1 mg PO Q4H [facility]; Taper Stop: 06/23/19 23:59 Last Admin: 06/21/19 09:02 Dose: 1 mg Documented by: Nicotine (Nicoderm Cq (Pbkc)) 21 mg TRANSDERM. DAILY [facility] Last Admin: 06/21/19 09:07 Dose: 21 mg Documented by: Ondansetron HCl (Zofran) 8 mg PO Q8H PRN PRN PRN Reason: NAUSEA Ondansetron HCl (Zofran) 4 mg IV Q8H PRN PRN PRN Reason: NAUSEA/VOMITING Last Admin: 06/20/19 11:33 Dose: 4 mg Documented by: Oxybutynin Chloride (Ditropan) 5 mg PO TID [facility] Last Admin: 06/21/19 06:04 Dose: 5 mg Documented by: Pantoprazole Sodium (Protonix) 40 mg PO DAILY [facility] Last Admin: 06/21/19 09:08 Dose: 40 mg Documented by: Paroxetine HCl (Paxil) 40 mg PO DAILY [facility] Last Admin: 06/21/19 09:07 Dose: 40 mg Documented by: Paroxetine HCl (Paxil) 10 mg PO DAILY [facility] Last Admin: 06/21/19 09:07 Dose: 10 mg Documented by: Potassium Chloride (K-Dur) 30 meq PO BIDCM [facility] Last Admin: 06/21/19 09:03 Dose: 30 meq Documented by: Pramipexole Dihydrochloride (Mirapex) 0.5 mg PO DAILY [facility] Last Admin: 06/21/19 09:06 Dose: 0.5 mg Documented by: Senna/Docusate Sodium (Senokot-S, Jennifer-Colace) 1 tablet PO BID [facility] Last Admin: 06/21/19 09:08 Dose: Not Given Documented by: Sodium Chloride () 10 - 40 ml IV UD PRN PRN Reason: SALINE FLUSH Last Admin: 06/21/19 06:03 Dose: 10 ml Documented by: Thiamine HCl (Vitamin B1) 100 mg PO DAILY@0800 [facility] Last Admin: 06/21/19 09:03 Dose: 100 mg Documented by: Trazodone HCl (Desyrel) 300 mg PO QHS [facility] Last Admin: 06/20/19 21:30 Dose: 300 mg Documented by: Warfarin Sodium (Coumadin (Pbkc)) 5 mg PO [id number]@1700 [facility] Last Admin: 06/20/19 18:07 Dose: 5 mg Documented by: Discharge Activity: Return to Normal Activity Weight Bearing Status: Weight bearing as tolerated Call your doctor if you observe: Shortness of breath, Swelling in the ankles, Increased palpitations (irregular heartbeat), - - abdominal pain, diarrhea Home Medications: Medications to take at Discharge Ascorbic Acid [Vitamin C] 1,000 mg PO BID 08/18/17 Carvedilol [Coreg (Beta Brock)] 3.125 mg PO BID 08/18/17 Donepezil HCl [Aricept] 10 mg PO QHS 08/18/17 Ferrous Sulfate 325 mg PO DAILY 08/18/17 Finasteride [Proscar] 5 mg PO DAILY 08/18/17 Omeprazole 40 mg PO DAILY 08/18/17 Paroxetine HCl [Paxil] 50 mg PO DAILY 08/18/17 Pramipexole Di-HCl [Mirapex] 0.5 mg PO DAILY 08/18/17 Thiamine Mononitrate (Vit B1) [Vitamin B-1] 100 mg PO DAILY 08/18/17 Trazodone HCl 300 mg PO QHS 08/18/17 budesonide-formoterol HFA 80 mcg-4.5 mcg/actuation aerosol inhaler 2 puff INHALATION BID 05/31/18 acamprosate 333 mg tablet,delayed release 666 mg PO TID 08/23/18 Warfarin [Coumadin] 5 mg PO SUMOTUWETHFR 10/01/18 atorvastatin 20 mg tablet 20 mg PO QHS #30 tab 11/07/18 oxybutynin chloride 5 mg tablet 5 mg PO TID tab 11/29/18 furosemide 40 mg tablet 60 mg PO BID tab 12/31/18 lisinopril 10 mg tablet 10 mg PO DAILY #90 tab 04/26/19 Folic Acid 1 mg PO DAILY 05/26/19 Sennosides/Docusate Sodium [Senexon-S 50-8.6 mg Tablet] 1 ea PO BID 05/26/19 Potassium Chloride 30 meq PO BID #60 06/21/19 Following Prescrptions Were Given to Patient: Potassium Chloride 30 meq PO BID #60 Prescription Printed Primary Care Physician: Josue Cifuentes MD [Primary Care Provider] - Please follow up with your Primary Care Physician in: one week Patient Instructions: ED Gastroenteritis Noninfectious Disposition: Home Minutes spent on discharge:: 40 Patient Condition:: Stable Medical Necessity - Tobacco Use Smoking Status: Heavy Smoker (>10/day) Tobacco Use: Cigarettes Meaningful Use Info Meaningful Use Diagnoses (Choose all that apply): None applicable Inpatient E&M: [address] [facility]
--- NOTE | 2019-06-21 10:29 | CASEMGMT ---
Social Work Pt ready for discharge on this date. VM left with Brittny Bustos CM at [facility] and discharge instructions and summary faxed. HECTOR Carrillo
[2019-06-21 12:30] LABS: Magnesium 1.4 mg/dL (1.6-2.6)
--- NOTE | 2019-06-24 10:13 | CASEMGMT ---
JORGE CARD Discharge Follow-up Phone Call: BERNARDINO: 12 Strata: 3 Call Date: 06/24/19 Discharge Date: 06/21/19 Time of Call: 1011 Duration: 1 min Admitting Diagnosis: Colitis RN STEPHIE attempted to complete follow-up phone call after recent hospitalization. No answer, voice message left with return contact information.
== END 2019-06-21 10:55 | disposition home or self-care (01) | DRG 392 ==
LOC: ED 10:16 → MS3 12:42
PROVIDERS: Admitting Provider Student in an Organized Health Care Education/Training Program; Emergency Provider Emergency Medicine; PCP Family Medicine; Referring Provider Student in an Organized Health Care Education/Training Program; Visit Provider Student in an Organized Health Care Education/Training Program
DX: K52.9 Noninfective gastroenteritis and colitis, unspecified (principal); F10.239 Alcohol dependence with withdrawal, unspecified; E87.6 Hypokalemia; R79.1 Abnormal coagulation profile; I10 Essential (primary) hypertension; Z95.2 Presence of prosthetic heart valve; I35.1 Nonrheumatic aortic (valve) insufficiency; E78.5 Hyperlipidemia, unspecified; Z95.0 Presence of cardiac pacemaker; I48.0 Paroxysmal atrial fibrillation; F17.210 Nicotine dependence, cigarettes, uncomplicated; K70.30 Alcoholic cirrhosis of liver without ascites; F03.90 Unspecified dementia, unspecified severity, without behavioral disturbance, psychotic disturbance, mood disturbance, and anxiety; J44.9 Chronic obstructive pulmonary disease, unspecified; Z79.01 Long term (current) use of anticoagulants; Z79.899 Other long term (current) drug therapy; F41.9 Anxiety disorder, unspecified; K76.0 Fatty (change of) liver, not elsewhere classified; Y90.8 Blood alcohol level of 240 mg/100 ml or more; N40.0 Benign prostatic hyperplasia without lower urinary tract symptoms; E83.42 Hypomagnesemia
CPT/HCPCS: 36415; 71046; 74177; 80048; 80053; 80307; 80320; 81001; 83690; 83735; 84484; 85025; 85610; 87177; 87209; 87493; 87506; 93005; 94640; 97110; 97116; 97162; 97166; 97530; 99285; 99406; J7030; J7050; J7120; Q9967; A4216; G0480; J0744; J2405; J3490

== ENCOUNTER → 2019-08-23 | Outpatient (CLI) | payer MEDICARE, MEDICAID, SELFPAY ==
[2019-07-24 13:19] VITALS: BMI 23.9
--- NOTE | 2019-08-23 09:54 | ECHOD_ITS ---
Reason For Study: VALVE REPLACEMENT EVAL Procedure This was a 2D Doppler, Color Flow transthoracic echocardiogram. The study was technically difficult. Exam performed in department. Left Ventricle Normal LV size. Left ventricular systolic function is normal. The estimated ejection fraction is 60 %. There is evidence of diastolic dysfunction. No regional wall motion abnormalities noted. Right Ventricle Normal RV size. ICD or pacer leads identified within the right ventricle. Normal systolic function. Atria The left atrium is mildly enlarged. Normal right atrium. ICD or pacer leads identified within the right atrium. No doppler evidence for ASD. Mitral Valve The mitral papillary muscle appears thickened and/or calcified. Stable appearing mechanical mitral valve apparatus. Trivial transvalvular insufficiency of the mitral valve. Tricuspid Valve Normal tricuspid valve. Mild tricuspid valve insufficiency. Right ventricular systolic pressure estimated to be 26 mmHg. Aortic Valve Trisinus/trileaflet aortic valve. Mild focal aortic valve calcification. Mild-Moderate (1-2+) aortic valve insufficiency. Pulmonic Valve The pulmonic valve is not well visualized. Great Vessels Normal aortic root. Pericardium/Pleural No pericardial effusion. MMode/2D Measurements & Calculations LVIDd: 4.9 cm IVSd: 1.1 cm LVOT diam: 2.0 cm LVIDs: 3.2 cm LVPWd: 1.0 cm LVOT area: 3.2 cm2 RVDd: 4.0 cm FS: 34.8 % Ao root diam: 3.3 cm LAV(MOD-bp): 61.2 ml LA A4 area: 18.8 cm2 LAV(MOD-bp) Indexed: 35.7 ml/m2 LAV(MOD-sp2): 68.0 ml LAV(MOD-sp4): 52.1 ml LA dimension(2D): 4.1 cm RA A4 area: 19.6 cm2 Time Measurements MV dec time: 0.25 sec Doppler Measurements & Calculations MV E max jozef: 125.2 cm/sec Lat Peak E' Jozef: 12.3 cm/sec Med Peak E' Jozef: 6.1 cm/sec MV A max jozef: 119.6 cm/sec E/E' lat: 10.2 E/E' med: 20.6 MV E/A: 1.0 Ao V2 max: 155.9 cm/sec AI max jozef: 356.1 cm/sec LV V1 max: 135.1 cm/sec Ao max P.7 mmHg AI max P.7 mmHg LV V1 max P.3 mmHg Ao V2 mean: 114.7 cm/sec AI dec slope: 216.5 cm/sec2 LV V1 mean P.0 mmHg Ao mean P.8 mmHg AI P1/2t: 481.7 msec LV V1 mean: 94.5 cm/sec Ao V2 VTI: 33.4 cm LV V1 VTI: 27.9 cm KESHA(I,D): 2.7 cm2 KESHA(V,D): 2.8 cm2 SV(LVOT): 89.3 ml PA V2 max: 120.8 cm/sec TR max jozef: 241.1 cm/sec TR max P.3 mmHg Interpretation Summary The study was technically difficult. Left ventricular systolic function is normal. The estimated ejection fraction is 60 %. The left atrium is mildly enlarged. Stable appearing mechanical mitral valve apparatus. Trivial transvalvular insufficiency of the mitral valve. The mitral papillary muscle appears thickened and/or calcified. Mild tricuspid valve insufficiency. Mild focal aortic valve calcification. Mild-Moderate (1-2+) aortic valve insufficiency. Right ventricular systolic pressure estimated to be 26 mmHg. There is evidence of diastolic dysfunction. ICD or pacer leads identified within the right atrium ICD or pacer leads identified within the right ventricle. Ordering Physician: Samir Medina Referring Physician: Jono Cifuentes Performed By: Jessica Hewitt, KAUSHIK, RVT
== END | disposition home or self-care (01) ==
PROVIDERS: PCP Family Medicine; Referring Provider Internal Medicine Cardiovascular Disease; Visit Provider Internal Medicine Cardiovascular Disease
DX: I35.1 Nonrheumatic aortic (valve) insufficiency (principal); Z95.0 Presence of cardiac pacemaker; Z95.2 Presence of prosthetic heart valve; I48.0 Paroxysmal atrial fibrillation; E78.5 Hyperlipidemia, unspecified; F10.20 Alcohol dependence, uncomplicated; I10 Essential (primary) hypertension
CPT/HCPCS: 93306

== ENCOUNTER → 2019-09-11 | Outpatient (CLI) | payer MEDICARE, MEDICAID, SELFPAY ==
[2019-08-26 12:48] VITALS: BMI 24.0
== END | disposition home or self-care (01) ==
LOC: SL 20:02
PROVIDERS: PCP Family Medicine; Referring Provider Family Medicine; Visit Provider Family Medicine
DX: G47.33 Obstructive sleep apnea (adult) (pediatric) (principal)
CPT/HCPCS: 95811

== ENCOUNTER → 2019-09-20 11:00 | Outpatient (CLI) | payer MEDICARE, MEDICAID, SELFPAY ==
[2019-08-26 12:48] VITALS: BMI 24.0
== END ==
PROVIDERS: PCP Family Medicine; Visit Provider Nurse Practitioner Acute Care
DX: Z46.89 Encounter for fitting and adjustment of other specified devices (principal)

== ENCOUNTER → 2019-09-23 10:00 | Outpatient (CLI) | payer MEDICARE, MEDICAID, SELFPAY ==
[2019-08-26 12:48] VITALS: BMI 24.0
== END ==
PROVIDERS: PCP Family Medicine; Visit Provider Nurse Practitioner Acute Care
DX: Z46.89 Encounter for fitting and adjustment of other specified devices (principal)

== ENCOUNTER 2019-11-27 05:21 | Emergency (ER) | payer MEDICARE, MEDICAID, SELFPAY ==
[2019-08-26 12:48] VITALS: BMI 24.0
[2019-11-27] VITALS (7 sets, daily range): BP systolic 108–136; BP diastolic 71–81; PULSE 99–134; RESP 14–20; TEMP 37; O2SAT 93–95; BMI 24.4
--- NOTE | 2019-11-27 05:33 | ED.VIS.GEN ---
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 He states that about 2 days ago he began to have pain on the right side of his abdomen. He reports that over the past 6-1/2 hours he has had multiple trips to the bathroom in which he has passed blood. He is on Coumadin for mechanical heart valve. Patient has been diagnosed with colitis in the past. He is also been diagnosed with cirrhosis. He denies a history of varices. <Wally Small - Last Filed: 11/27/19 07:16> <Vishnu Rios - Last Filed: 11/27/19 09:26> Chief Complaint: GI Bleed Past Medical History Surgical History: - - mechanical mitral valve neck surgery, back surgery, right hip pinned. Smoking Status: Current every day smoker - Family History Maternal Family History: Family History (Last Reviewed 07/24/19 @ 13:33 by Valerie Pedroza) Mother Heart disease Father Heart disease CVA (cerebral vascular accident) Brother Heart disease Diabetes Sister Heart disease Family History: Reports: Cancer Paternal Family History: Family History (Last Reviewed 07/24/19 @ 13:33 by Valerie Pedroza) Mother Heart disease Father Heart disease CVA (cerebral vascular accident) Brother Heart disease Diabetes Sister Heart disease Family History: Reports: - - Father with history of blood clot, unclear type. Sibling Family History: Family History (Last Reviewed 07/24/19 @ 13:33 by Valerie Pedroza) Mother Heart disease Father Heart disease CVA (cerebral vascular accident) Brother Heart disease Diabetes Sister Heart disease Family History: Reports: No pertinent history <Wally Small - Last Filed: 11/27/19 07:16> - Family History Maternal Family History: Family History (Last Reviewed 07/24/19 @ 13:33 by Valerie Pedroza) Mother Heart disease Father Heart disease CVA (cerebral vascular accident) Brother Heart disease Diabetes Sister Heart disease Paternal Family History: Family History (Last Reviewed 07/24/19 @ 13:33 by Valerie Pedroza) Mother Heart disease Father Heart disease CVA (cerebral vascular accident) Brother Heart disease Diabetes Sister Heart disease Sibling Family History: Family History (Last Reviewed 07/24/19 @ 13:33 by Valerie Pedroza) Mother Heart disease Father Heart disease CVA (cerebral vascular accident) Brother Heart disease Diabetes Sister Heart disease <BlancaVishnu - Last Filed: 11/27/19 09:26> - Allergies and Home Meds Allergies/Adverse Reactions: Allergies ibuprofen Adverse Reaction (Verified 11/27/19 05:25) Upset Stomach metronidazole Adverse Reaction (Verified 11/27/19 05:25) Upset Stomach naproxen [From Aleve] Adverse Reaction (Verified 11/27/19 05:25) gi upset Primary Care Physician: Josue Cifuentes MD [Primary Care Provider] - Review of Systems General: Denies: Chills, Fever, Sweats Eyes: Denies: Visual changes - bilaterally, Diplopia ENT: Denies: Rhinorrhea, Sore throat Cardiovascular: Denies: Chest pain, Palpitations Respiratory: Denies: Dyspnea, Cough, Dyspnea on exertion Gastrointestinal: Reports: Abdominal pain, Hematochezia. Denies: Nausea, Vomiting, Diarrhea, Melena Genitourinary: Denies: Dysuria, Hematuria, Frequency Musculoskeletal: Denies: Back pain, Extremity Pain Skin: Denies: Rash, Wounds Neurological: Denies: Headache, Weakness, Numbness <Wally Small - Last Filed: 11/27/19 07:16> Physical Exam Vital Signs/Narrative: Vital Signs Temp Pulse Resp BP Pulse Ox 11/27/19 05:22 98.6 F 99 20 H 136/81 H 94 General: Well nourished, Well developed, Unkempt, No Acute Distress Head: Normocephalic, Atraumatic Eyes: Perrl, EOMI ENT: Moist mucous membranes, No rhinorrhea Neck: Supple, Nontender Cardiovascular: Regular rate, Regular rhythm, No murmurs Respiratory: No distress, CTA bilaterally, Chest nontender Abdomen: Soft, Nondistended, Normal bowel sounds, Tender - Right side of abdomen and mildly on left, Guarding. Negative for: Rebound tenderness Rectal: - - Gross blood on EZEKIEL Back: Nontender, Normal Inspection Extremities: Nontender, No edema Skin: Normal color, No rash Neurological: Alert, Oriented x3, Cranial nerves II-XII grossly intact, Normal Strength, Normal Sensation, - - Slurred speech Psychological: Normal affect, Normal Mood <Wally Small - Last Filed: 11/27/19 07:16> Vital Signs/Narrative: Vital Signs Temp Pulse Resp BP Pulse Ox 11/27/19 09:13 134 H 16 128/76 H 93 11/27/19 08:06 134 H 16 108/71 94 11/27/19 07:18 107 H 18 136/81 H 94 11/27/19 06:45 16 11/27/19 05:22 98.6 F 99 20 H 136/81 H 94 <Vishnu Rios - Last Filed: 11/27/19 09:26> Diagnostic/Tx/Re-eval Clinical Impression(s) from Imaging Studies Abdomen/Pelvis CT 11/27/19 06:10 IMPRESSION: Small focus of pneumatosis intestinalis suggested within the descending colon. Edema of the rectum suggesting proctitis. There is may be associated with diarrhea. There are distended loops of large and small bowel with air-fluid levels which can be associated with a gastroenteritis. Dense atherosclerotic disease of the aorta likely hemodynamically significant calcification of the bilateral common iliac arteries. Status post open reduction internal fixation right proximal femur Minimal intrahepatic ductal dilatation new since prior study. Moderate extrahepatic ductal dilatation and pancreatic ductal dilatation. Consider follow-up ultrasound. Status post cholecystectomy. Postoperative change pacer cardiac valve repair. Electronically Signed: Kristina Hills MD at 6:54 EDT Tel , Service support , Laboratory Last Values WBC 12.2 K/mm3 (4.4-11.0) H 11/27/19 05:40 RBC 4.75 M/mm3 (4.6-6.2) 11/27/19 05:40 Hgb 15.8 g/dL (13.0-16.5) 11/27/19 05:40 Hct 44.7 % (40-54) 11/27/19 05:40 MCV 94.1 fL (80-94) H 11/27/19 05:40 MCH 33.3 pg (27.0-32.0) H 11/27/19 05:40 MCHC 35.3 g/dL (32-36) 11/27/19 05:40 RDW Std Deviation 41.0 fl (35.1-43.9) 11/27/19 05:40 RDW Coeff of Harjeet 11.8 % (11.6-14.6) 11/27/19 05:40 Plt Count 199 K/mm3 (150-450) 11/27/19 05:40 MPV 9.1 fl (6.2-12.0) 11/27/19 05:40 Immature Gran % (Auto) 0.200 % (0.0-0.9) 11/27/19 05:40 Neut % (Auto) 70.1 % (47-70) H 11/27/19 05:40 Lymph % (Auto) 17.8 % (19-41) L 11/27/19 05:40 Pendleton % (Auto) 8.5 % (0-10) 11/27/19 05:40 Eos % (Auto) 3.0 % (0-5) 11/27/19 05:40 Baso % (Auto) 0.4 % (0-1) 11/27/19 05:40 Absolute Neuts (auto) 8.5 X10^3/uL (2.0-7.7) H 11/27/19 05:40 Absolute Lymphs (auto) 2.17 X10^3/uL (0.83-4.51) 11/27/19 05:40 Nucleated RBC % 0 % (0-5) 11/27/19 05:40 PT 48.5 SECONDS (11.7-14.9) H 11/27/19 05:40 INR 5.3 H* 11/27/19 05:40 APTT 59.9 Seconds (24.1-36.2) H 11/27/19 05:40 Sodium 140 mmol/L (136-145) 11/27/19 05:40 Potassium 3.2 mmol/L (3.5-5.1) L 11/27/19 05:40 Chloride 107 mmol/L (98-107) 11/27/19 05:40 Carbon Dioxide 28.0 mmol/L (21.0-32.0) 11/27/19 05:40 Anion Gap 5 (5-15) 11/27/19 05:40 BUN 4 mg/dL (7-18) L 11/27/19 05:40 Creatinine 0.73 mg/dL (0.70-1.30) 11/27/19 05:40 Estim Creat Clear Calc 85.52 ml/min 11/27/19 05:40 Est GFR (MDRD) Af Amer 139 mL/min (>60) 11/27/19 05:40 Est GFR (MDRD) Non-Af 115 mL/min (>60) 11/27/19 05:40 BUN/Creatinine Ratio 5.5 RATIO (10-20) L 11/27/19 05:40 Glucose 105 mg/dL (74-106) 11/27/19 05:40 Lactic Acid 1.8 mmol/L (0.4-1.9) 11/27/19 06:32 Calcium 8.3 mg/dL (8.5-10.1) L 11/27/19 05:40 Magnesium 2.0 mg/dL (1.6-2.6) 11/27/19 05:40 Total Bilirubin 0.50 mg/dL (0.20-1.00) 11/27/19 05:40 AST 53 U/L (15-37) H 11/27/19 05:40 ALT 36 U/L (16-61) 11/27/19 05:40 Alkaline Phosphatase 90 U/L (45-117) 11/27/19 05:40 Total Protein 7.7 g/dL (6.4-8.2) 11/27/19 05:40 Albumin 3.8 g/dL (3.2-5.0) 11/27/19 05:40 Globulin 3.9 g/dL (2.2-4.2) 11/27/19 05:40 Albumin/Globulin Ratio 1.0 RATIO (0.9-2.4) 11/27/19 05:40 Lipase 66 U/L (73-393) L 11/27/19 05:40 Ethyl Alcohol 325.0 mg/dL H* 11/27/19 05:40 - Medical Decision Making Patient received IV fluids and morphine for pain. CT and labs were reviewed. He received a dose of Zosyn. I contacted Dr. Reddy who is on-call for surgery. <Wally Small - Last Filed: 11/27/19 07:16> - Medical Decision Making Patient asked for transfer to [facility] as that is where he had his mitral valve replaced. Unfortunately they do not have GI coverage. He then asked for [facility]. He was discussed with Dr. Swain and was accepted in transfer. Disposition: Transferred in stable condition. Impression: 1. Lower GI bleed. 2. Coumadin coagulopathy. 3. History of mitral valve replacement. 4. Alcoholism. <Vishnu Rios - Last Filed: 11/27/19 09:26> ED Disposition <Wally Small - Last Filed: 11/27/19 07:16> <Vishnu Rios - Last Filed: 11/27/19 09:26> - Plan for ED Patient: Diagnosis: Supratherapeutic INR, Alcohol intoxication, Alcoholism /alcohol abuse, H/O mitral valve replacement with mechanical valve, Lower GI bleed, Colitis Referrals: Josue Cifuentes MD [Primary Care Provider] -
[2019-11-27] MEDS: 0.9% Normal Saline 1,000 ML 125 ML IV (05:44)
[2019-11-27 05:50] LABS: Absolute Lymphocyte Count 2.17 X10^3/uL (0.83-4.51); Absolute Neutrophil Count 8.5 X10^3/uL (2.0-7.7); Basophil# 0.05 X10^3/uL; Basophil% 0.4 % (0-1); Eosinophil# 0.36 X10^3/uL; Hematocrit 44.7 % (40-54); Hemoglobin 15.8 g/dL (13.0-16.5); Lymphocyte # 2.17 X10^3/ul (4.0); Lymphocyte % 17.8 % (19-41); Mean Corp Hgb Conc 35.3 g/dL (32-36); Mean Corpuscular Hgb 33.3 pg (27.0-32.0); Mean Corpuscular Volume 94.1 fL (80-94); Mean Platelet Vol. 9.1 fl (6.2-12.0); Monocyte# 1.04 X10^3/uL; Monocyte% 8.5 % (0-10); NRBC Flagged by Analyzer 0 % (0-5); Neutrophil # 8.54 X10^3/uL (2.7-7.7); Neutrophil % 70.1 % (47-70); Platelet Count 199 K/mm3 (150-450); RBC Distribution Width CV 11.8 % (11.6-14.6); Red Blood Count 4.75 M/mm3 (4.6-6.2); White Blood Count 12.2 K/mm3 (4.4-11.0)
[2019-11-27] MEDS: Morphine 4 MG/ML Syringe IV ×2 (05:58→07:14)
[2019-11-27 06:00] LABS: Prothrombin Time (Protime)PT. 48.5 SECONDS (11.7-14.9)
[2019-11-27 06:01] LABS: Partial Thromboplast Time 59.9 Seconds (24.1-36.2)
[2019-11-27 06:08] LABS: AST(SGOT) 53 U/L (15-37); Alanine Aminotransfer ALT/SGPT 36 U/L (16-61); Albumin, Serum 3.8 g/dL (3.2-5.0); Alkaline Phosphatase 90 U/L (45-117); Anion Gap 5 (5-15); BUN 4 mg/dL (7-18); BUN/Creat Ratio 5.5 RATIO (10-20); Calcium,Total 8.3 mg/dL (8.5-10.1); Chloride 107 mmol/L (98-107); Creatinine, Serum 0.73 mg/dL (0.70-1.30); EST Glomerular Filtration Rate 115 mL/min (>60); Est Glom Filt Rate - Afr Amer 139 mL/min (>60); Estimated Creatinine Clearance 85.52 ml/min; Globulin 3.9 g/dL (2.2-4.2); Glucose 105 mg/dL (74-106); Lipase 66 U/L (73-393); Potassium 3.2 mmol/L (3.5-5.1); Protein, Total 7.7 g/dL (6.4-8.2); Sodium Level 140 mmol/L (136-145)
[2019-11-27 06:10] LABS: International Normalized Ratio 5.3
--- NOTE | 2019-11-27 06:10 | CT_ITS ---
STUDY: CT ABDOMEN AND PELVIS WITHOUT CONTRAST REASON FOR EXAM: Male, 59 years old. RECTAL BLEEDING. HISTORY OF HEAVY ALCOHOL USE AND CIRRHOSIS. HERNIA REPAIR RADIATION DOSAGE (If Supplied By Facility): CTDIvol = ( 9.95 ) mGy, DLP = ( 664.08 ) mGycm TECHNIQUE: Transaxial images were obtained from the dome of the diaphragm to the symphysis pubis without oral contrast, and without intravenous contrast. Sagittal and coronal images were reconstructed. Individualized dose optimization techniques were used for this CT. COMPARISON: 06/19/2019 CT scan abdomen and pelvis FINDINGS: The visualized lung bases are unremarkable. There is a cardiac valvular repair. There are visualized pacer leads. Sternotomy wires are seen midline. There is decreased attenuation of the liver consistent with steatosis. There is mild intrahepatic ductal dilatation. There are surgical clips in the gallbladder fossa consistent with a prior cholecystectomy. Normal spleen. There is interval greater distention of the pancreatic duct up to 4.9 mm. The common duct of the pancreas measures 7.7 mm. Normal bilateral adrenal glands. There is a distended appearance of the right ureter. The bladder is overdistended Normal left kidney. There is a mildly thick-walled appearance of the stomach. There are fluid distended appearing small bowel loops present. Within the left upper quadrant in the ascending colon there are peripheral bubbles of gas that is suggestive possible pneumatosis intestinalis. There is a thick-walled appearance of the rectum. There are distended loops of large and small bowel with air-fluid levels. This is worse than the prior study. The appendix is visualized and appears normal. There is diffuse atherosclerotic calcification of the abdominal aorta, without a demonstrated aneurysm. As calcification indicative of the renal arteries Normal inferior vena cava. Normal retroperitoneum. Is dense atherosclerotic disease of the bilateral common iliac arteries likely clinically significant on the right in the right iliac artery. There is fairly dense calcification of bilateral common femoral arteries. Bladder is overdistended. Bladder measures 8.9 x 12.7 x 2.1 cm. Normal visualized prostate gland. Normal abdominal wall. There are diffuse degenerative changes of the visualized lumbar spine. There is chronic loss of height at the level of T9. There is a right hip open reduction internal fixation with intramedullary shimon. CT/Abdomen/Pelvis W IV Cont ONLY IMPRESSION: Small focus of pneumatosis intestinalis suggested within the descending colon. Edema of the rectum suggesting proctitis. There is may be associated with diarrhea. There are distended loops of large and small bowel with air-fluid levels which can be associated with a gastroenteritis. Dense atherosclerotic disease of the aorta likely hemodynamically significant calcification of the bilateral common iliac arteries. Status post open reduction internal fixation right proximal femur Minimal intrahepatic ductal dilatation new since prior study. Moderate extrahepatic ductal dilatation and pancreatic ductal dilatation. Consider follow-up ultrasound. Status post cholecystectomy. Postoperative change pacer cardiac valve repair. Electronically Signed: Kristina Hills MD at 6:54 EDT Tel , Service support ,
[2019-11-27 07:10] LABS: Lactic Acid 1.8 mmol/L (0.4-1.9)
[2019-11-27] MEDS: 0.9% Normal Saline 1,000 ML 999 ML IV (09:13)
--- NOTE | 2019-11-27 09:25 | ED.RN ---
PHYSICIANS CONTACTED. PT PLACED ON WILL CALL. LET THEM KNOW WHEN WE HAVE A BED
--- NOTE | 2019-11-27 10:18 | NURSING ---
PHYSCIANS CALLED. WILL BE AN EXTRA 30 MIN FOR SQUAD
--- NOTE | 2019-11-27 11:21 | NURSING ---
ETA IS 22 MIN
== END 2019-11-27 11:47 | disposition short-term general hospital (02) ==
PROVIDERS: Emergency Provider Emergency Medicine; PCP Family Medicine
DX: K62.5 Hemorrhage of anus and rectum (principal); I70.0 Atherosclerosis of aorta; Z90.49 Acquired absence of other specified parts of digestive tract; F10.20 Alcohol dependence, uncomplicated; K70.30 Alcoholic cirrhosis of liver without ascites; F12.90 Cannabis use, unspecified, uncomplicated; D68.9 Coagulation defect, unspecified
CPT/HCPCS: 74177; 80053; 80320; 83605; 83690; 83735; 85025; 85610; 85730; 87040; 96361; 96365; 96375; 96376; 99285; Q9967; A4216; G0480

== ENCOUNTER 2019-12-06 15:45 | Emergency (ER) | payer MEDICARE, MEDICAID, SELFPAY ==
[2019-11-27 05:22] VITALS: BMI 24.4
[2019-12-06 15:45] VITALS: BP 134/75; PULSE 77; RESP 18; TEMP 36.7; O2SAT 96
[2019-12-06 15:47] VITALS: BP 134/75; PULSE 77; RESP 18; TEMP 36.7; O2SAT 96; BMI 22.9
--- NOTE | 2019-12-06 16:27 | ED.DCSUM_ITS ---
History of Present Illness Chief Complaint: Complaint Informant: Patient Narrative: Patient presents the emergency department via EMS stating that he has some blood with stool. He states is not every time he goes to the bathroom. He was recently admitted at [facility] where he had an EGD and colonoscopy that showed esophageal candidiasis. Colonoscopy revealed 2 small sessile polyps that were removed and biopsied. Patient's warfarin was held and he is currently on warfarin and Lovenox. Since arriving home he failed to make his Coumadin check which she states is probably because he was smoking marijuana and started drinking again. He admits that he is intoxicated at the current time. He states he feels a bit dizzy right now but wonders if that is from his alcohol. EMS notes stable vital signs. His any abdominal pain other than where he was receiving Lovenox shots. He states that the stool is usually formed occasionally loose. Fevers. Initial complaint of blood in the urine he states was not accurate. He states he has not seen any blood in his urine. Hemoglobin was 12.5 on 11/30/19. Past Medical History - Allergies and Home Meds Allergies/Adverse Reactions: Allergies ibuprofen Adverse Reaction (Verified 11/27/19 05:25) Upset Stomach metronidazole Adverse Reaction (Verified 11/27/19 05:25) Upset Stomach naproxen [From Aleve] Adverse Reaction (Verified 11/27/19 05:25) gi upset Primary Care Physician: Josue Cifuentes MD [Primary Care Provider] - As soon as possible [facility] [STAFF PHYSICIAN] - Surgical History: - - mechanical mitral valve neck surgery, back surgery, right hip pinned. Smoking Status: Current every day smoker - Family History Maternal Family History: Family History (Last Reviewed 07/24/19 @ 13:33 by Valerie Pedroza) Mother Heart disease Father Heart disease CVA (cerebral vascular accident) Brother Heart disease Diabetes Sister Heart disease Family History: Reports: Cancer Paternal Family History: Family History (Last Reviewed 07/24/19 @ 13:33 by Valerie Pedroza) Mother Heart disease Father Heart disease CVA (cerebral vascular accident) Brother Heart disease Diabetes Sister Heart disease Family History: Reports: - - Father with history of blood clot, unclear type. Sibling Family History: Family History (Last Reviewed 07/24/19 @ 13:33 by Valerie Pedroza) Mother Heart disease Father Heart disease CVA (cerebral vascular accident) Brother Heart disease Diabetes Sister Heart disease Family History: Reports: No pertinent history Review of Systems General: Denies: Chills, Fever, Sweats Eyes: Denies: Visual changes - bilaterally, Diplopia ENT: Denies: Rhinorrhea, Sore throat Cardiovascular: Denies: Chest pain, Palpitations Respiratory: Denies: Dyspnea, Cough, Dyspnea on exertion Gastrointestinal: Reports: Hematochezia. Denies: Abdominal pain, Nausea, Vomiting, Diarrhea, Melena Genitourinary: Denies: Dysuria, Hematuria, Frequency Musculoskeletal: Denies: Back pain, Extremity Pain Skin: Denies: Rash, Wounds Neurological: Denies: Headache, Weakness, Numbness Physical Exam Vital Signs/Narrative: Vital Signs Temp Pulse Resp BP Pulse Ox 12/06/19 15:47 98.1 F 77 18 134/75 H 96 12/06/19 15:45 98.1 F 77 18 134/75 H 96 Inital Vital Signs reviewed: Yes General: Well nourished, Well developed, No Acute Distress Head: Normocephalic, Atraumatic Eyes: Perrl, EOMI ENT: Moist mucous membranes, No rhinorrhea Neck: Supple, Nontender Cardiovascular: Regular rate, Regular rhythm, No murmurs Respiratory: No distress, CTA bilaterally, Chest nontender Abdomen: Soft, Nontender, Nondistended, Normal bowel sounds Rectal: - - No gross blood on digital rectal examination. I do not see a fissure. No large external hemorrhoids seen. Back: Nontender, Normal Inspection Extremities: Nontender, No edema Skin: Normal color, No rash Neurological: Alert, Oriented x3, Cranial nerves II-XII grossly intact, Normal Strength, Normal Sensation Psychological: Normal affect, Normal Mood Diagnostic/Tx/Re-eval Laboratory Last Values WBC 5.6 K/mm3 (4.4-11.0) 12/06/19 16:10 RBC 4.75 M/mm3 (4.6-6.2) 12/06/19 16:10 Hgb 16.0 g/dL (13.0-16.5) 12/06/19 16:10 Hct 45.0 % (40-54) 12/06/19 16:10 MCV 94.7 fL (80-94) H 12/06/19 16:10 MCH 33.7 pg (27.0-32.0) H 12/06/19 16:10 MCHC 35.6 g/dL (32-36) 12/06/19 16:10 RDW Std Deviation 41.2 fl (35.1-43.9) 12/06/19 16:10 RDW Coeff of Harjeet 12.0 % (11.6-14.6) 12/06/19 16:10 Plt Count 215 K/mm3 (150-450) 12/06/19 16:10 MPV 9.2 fl (6.2-12.0) 12/06/19 16:10 Immature Gran % (Auto) 0.400 % (0.0-0.9) 12/06/19 16:10 Neut % (Auto) 61.3 % (47-70) 12/06/19 16:10 Lymph % (Auto) 16.9 % (19-41) L 12/06/19 16:10 Morris % (Auto) 12.4 % (0-10) H 12/06/19 16:10 Eos % (Auto) 8.3 % (0-5) H 12/06/19 16:10 Baso % (Auto) 0.7 % (0-1) 12/06/19 16:10 Absolute Neuts (auto) 3.4 X10^3/uL (2.0-7.7) 12/06/19 16:10 Absolute Lymphs (auto) 0.94 X10^3/uL (0.83-4.51) 12/06/19 16:10 Nucleated RBC % 0 % (0-5) 12/06/19 16:10 PT 46.1 SECONDS (11.7-14.9) H 12/06/19 16:10 INR 5.0 H* 12/06/19 16:10 APTT 59.0 Seconds (24.1-36.2) H 12/06/19 16:10 - Medical Decision Making Patient has no active bleeding on exam. His symptoms are intermittent. He is supratherapeutic on his INR. His hemoglobin is better than it was several days ago. The patient was offered detox and he declined stating that he can stop drinking on his own. It was expressed to him very directly that he needs very close follow-up and needs to stop drinking or he is going to . ED Disposition - Plan for ED Patient: Disposition: Home or Assisted Living Diagnosis: GI bleed, Alcoholism /alcohol abuse, Anticoagulated on Coumadin Instructions: ED Hematochezia Stable, ED Alcohol Abuse Referrals: Josue Cifuentes MD [Primary Care Provider] - As soon as possible [facility] [STAFF PHYSICIAN] - Additional Instructions: You have to stop drinking alcohol. It is going to kill you if you do not. Your Coumadin today was at 5. You need to stop taking your Coumadin but I would continue with your Lovenox shots. You need to call your doctor tomorrow. You will need very close follow-up.
[2019-12-06 16:30] LABS: Absolute Lymphocyte Count 0.94 X10^3/uL (0.83-4.51); Absolute Neutrophil Count 3.4 X10^3/uL (2.0-7.7); Basophil# 0.04 X10^3/uL; Basophil% 0.7 % (0-1); Eosinophil# 0.46 X10^3/uL; Eosinophils% 8.3 % (0-5); Lymphocyte # 0.94 X10^3/ul (4.0); Lymphocyte % 16.9 % (19-41); Mean Corp Hgb Conc 35.6 g/dL (32-36); Mean Corpuscular Hgb 33.7 pg (27.0-32.0); Mean Corpuscular Volume 94.7 fL (80-94); Mean Platelet Vol. 9.2 fl (6.2-12.0); Monocyte# 0.69 X10^3/uL; Monocyte% 12.4 % (0-10); NRBC Flagged by Analyzer 0 % (0-5); Neutrophil % 61.3 % (47-70); Platelet Count 215 K/mm3 (150-450); RBC Distribution Width SD 41.2 fl (35.1-43.9); Red Blood Count 4.75 M/mm3 (4.6-6.2); White Blood Count 5.6 K/mm3 (4.4-11.0)
[2019-12-06 16:53] LABS: Prothrombin Time (Protime)PT. 46.1 SECONDS (11.7-14.9)
--- NOTE | 2019-12-06 17:09 | CM.ED ---
Social Work Consult: Substance Abuse Informant: Dr. Small Met with patient in room. Introduced self and social director role. Patient agreeable to speaking with this social director. This social director broached topic of substance abuse. Patient state I just want to get checked out. Patient respectfully declining resources. Patient was open to this social director asking further questions. Patient reports to live alone and to have support from significant other, Catherine. Patient reports to have been sober for 5 months and to have relapsed a few weeks ago. Patient reports substance of choice is alcohol and to consume 10 beers daily. Patient reports to be aware of local resources and I am going to stopped. Patient declines referrals or information. Patient denies suicidal thoughts/plans/intents. Patient reports no transportation issues and to follow up with primary care doctor, Dr. Cifuentes on a regular basis. Active support and listening provided. This social director encouraged patient to follow up with local community resources for support with substance abuse. Patient thanking this social director. Updated Dr. Small on above information. Mariama Corley FLASK HANDLER, ALEXANDREA
[2019-12-06 18:05] VITALS: PULSE 70; RESP 16; O2SAT 98
== END 2019-12-06 18:06 | disposition home or self-care (01) ==
PROVIDERS: Emergency Provider Emergency Medicine; PCP Family Medicine
DX: K92.1 Melena (principal); F10.10 Alcohol abuse, uncomplicated; Z79.01 Long term (current) use of anticoagulants; F17.200 Nicotine dependence, unspecified, uncomplicated
CPT/HCPCS: 85025; 85610; 85730; 99284; A4216

== ENCOUNTER 2020-01-11 15:43 | Inpatient (IN) | payer MEDICARE, MEDICAID, SELFPAY ==
[2020-01-11] VITALS (8 sets, daily range): BP systolic 140–165; BP diastolic 80–96; PULSE 78–101; RESP 15–18; TEMP 36.6–37.4; O2SAT 92–98; BMI 21.7; BMI 20.9
--- NOTE | 2020-01-11 15:59 | EKG12_ITS ---
Test Reason : Blood Pressure : / mmHG Vent. Rate : 091 BPM Atrial Rate : 091 BPM P-R Int : 170 ms QRS Dur : 118 ms QT Int : 422 ms P-R-T Axes : 052 041 031 degrees QTc Int : 519 ms Atrial-sensed ventricular-paced rhythm Abnormal ECG Confirmed by MARIUM CORBETT, KENYATTA ([id number]), book or script editor JONNATHAN MERCEDES ([id number]) on 01/14/2020 8:19:01 AM Referred By: CODI Confirmed By:KENYATTA CAUSEY MD
--- NOTE | 2020-01-11 16:00 | ED.DCSUM_ITS ---
- ER Visit Summary Date of Service: 01/11/20 Chief Complaint: [Requesting detox from alcohol] History of Present Illness: The patient is a 59 M [presents to the emergency department requesting detox today from alcohol. Patient states that he normally drinks about a 24 ounce cans of beer per day. He did have 1 drink today. Patient complains of diffuse abdominal discomfort today and states that he has been vomiting about 8 times today. He also has diarrhea. He denies cough or sore throat or body aches. He denies any COVID-19 exposures. Patient has history of hypertension, high cholesterol, A. fib, alcohol abuse. Patient's had prior surgical history including mitral valve replacement and cholecystectomy. Patient has a pacemaker and history of hernia repair.] Physical Examination: [HEENT-PERRLA, EOMI. Cranial nerves II through XII grossly intact. TMs clear. Mucous membranes moist. No adenopathy. Cardiovascular-regular rate and rhythm without murmur or ectopy Lungs-clear to auscultation, chest wall stable without crepitus or subcu emphysema Abdomen-normoactive bowel sounds, soft. Patient has tenderness diffusely to the abdomen. There is no rebound, rigidity, or peritoneal signs. Patient does have some ecchymosis to the anterior abdomen where he has been receiving Lovenox injections. Extremities-intact ?4, normal range of motion, normal pulses, atraumatic] Test Results: [CBC with differential obtained for work-up 3.1, hemoglobin 14, hematocrit 40, platelets 113. Chemistries unremarkable other than a slightly depressed potassium of 2.84 which she did receive 40 mEq of potassium chloride. LFTs were unremarkable other than his AST was slightly elevated 121. Alcohol was 116. EKG obtained arrival showed a paced rhythm. Troponin is less than 0.015. CT scan of the abdomen pelvis ordered and results currently pending.] Emergency Department Course and Treatment: [IV line was established. Patient was given a liter normal same fluid bolus. Patient treated with Zofran and Libr ium.] Treatment Plan: [Was discussed with hospitalist will evaluate patient for admission] Disposition: [Admit] Impression: [Alcohol withdrawal Request for detox from alcohol Abdominal pain-etiology uncertain] This note was generated with [employer] dictation software. It may contain incorrect words, spelling, and punctuation that were not noted in review of the chart prior to signing ED Disposition - Plan for ED Patient: Referrals: Josue Cifuentes MD [Primary Care Provider] -
[2020-01-11] MEDS: 0.9% Normal Saline 1,000 ML 1000 ML IV (16:36)
[2020-01-11] MEDS: Ondansetron 4 MG/2 ML Vial IV (16:37)
[2020-01-11] MEDS: chlordiazePOXIDE 25 MG Capsule PO (16:37)
--- NOTE | 2020-01-11 16:57 | CT_ITS ---
STUDY: CT ABDOMEN AND PELVIS WITHOUT CONTRAST REASON FOR EXAM: Male, 59 years old. ABD PAIN, ALCOHOL ABUSE RADIATION DOSAGE (If Supplied By Facility): CTDIvol = ( 5.81 ) mGy, DLP = ( 253.95 ) mGycm TECHNIQUE: Transaxial images were obtained from the dome of the diaphragm to the symphysis pubis without oral contrast, and without intravenous contrast. Sagittal and coronal images were reconstructed. Individualized dose optimization techniques were used for this CT. COMPARISON: 11/27/2019 FINDINGS: Left calcified granuloma. The visualized portions of the heart are within normal limits. Fatty liver. Status post cholecystectomy. No significant dilatation extrahepatic biliary system. Normal spleen. Normal pancreas. Normal bilateral adrenal glands. Normal right kidney. Mild perinephric stranding around the left kidney. Normal visualized stomach. Normal small intestine. Normal colon. The appendix is not visualized. Calcified abdominal aorta. Normal inferior vena cava. Normal retroperitoneum. Normal urinary bladder. Normal abdominal wall. Previous ORIF of the right femur. CT/Abdomen/Pelvis without Cont IMPRESSION: Fatty liver. Mild left perinephric stranding. Infectious etiology cannot be excluded. Electronically Signed: Samuel Emerson DO at 18:40 EDT Tel [phone], Service support ,
[2020-01-11 17:17] LABS: ALB/GLOB Ratio 0.8 RATIO (0.9-2.4); AST(SGOT) 121 U/L (15-37); Alanine Aminotransfer ALT/SGPT 36 U/L (16-61); Albumin, Serum 3.1 g/dL (3.2-5.0); Alkaline Phosphatase 65 U/L (45-117); Anion Gap 9 (5-15); BUN 3 mg/dL (7-18); BUN/Creat Ratio 4.2 RATIO (10-20); Calcium,Total 8.5 mg/dL (8.5-10.1); Chloride 98 mmol/L (98-107); Creatinine, Serum 0.71 mg/dL (0.70-1.30); EST Glomerular Filtration Rate 119 mL/min (>60); Est Glom Filt Rate - Afr Amer 144 mL/min (>60); Estimated Creatinine Clearance 86.08 ml/min; Globulin 3.8 g/dL (2.2-4.2); Glucose 104 mg/dL (74-106); Lipase 89 U/L (73-393); Potassium 2.8 mmol/L (3.5-5.1); Protein, Total 6.9 g/dL (6.4-8.2); Sodium Level 133 mmol/L (136-145)
[2020-01-11 17:39] LABS: Absolute Lymphocyte Count 0.81 X10^3/uL (0.83-4.51); Absolute Neutrophil Count 1.8 X10^3/uL (2.0-7.7); Basophil# 0.02 X10^3/uL; Basophil% 0.6 % (0-1); Eosinophil# 0.02 X10^3/uL; Eosinophils% 0.6 % (0-5); Hematocrit 40.1 % (40-54); Hemoglobin 14.4 g/dL (13.0-16.5); Lymphocyte # 0.81 X10^3/ul (4.0); Lymphocyte % 26.1 % (19-41); Mean Corp Hgb Conc 35.9 g/dL (32-36); Mean Corpuscular Volume 94.6 fL (80-94); Monocyte% 12.9 % (0-10); NRBC Flagged by Analyzer 0 % (0-5); Neutrophil # 1.84 X10^3/uL (2.7-7.7); Neutrophil % 59.5 % (47-70); Platelet Count 113 K/mm3 (150-450); RBC Distribution Width CV 14.9 % (11.6-14.6); RBC Distribution Width SD 50.2 fl (35.1-43.9); Red Blood Count 4.24 M/mm3 (4.6-6.2); White Blood Count 3.1 K/mm3 (4.4-11.0)
--- NOTE | 2020-01-11 18:34 | PCM.HP.STD ---
Problem List (1) Hypokalemia Status: Acute (2) Abdominal pain Status: Acute (3) Acute alcohol withdrawal Status: Acute (4) Alcohol dependence Status: Chronic (5) Essential hypertension Status: Chronic (6) H/O mitral valve replacement with mechanical valve Status: Chronic Comment: 27mm mechanical St. Sharan Mitral Valve prosthesis (7) Hyperlipidemia Status: Chronic Qualifiers: (8) Presence of permanent cardiac pacemaker Status: Chronic (9) Paroxysmal atrial fibrillation Status: Chronic History of Present Illness Date of Admission: 01/11/20 Chief Complaint: Requesting admission for alcohol detox. The patient is a 59 year old M with past medical history as mentioned above presented to the emergency room requesting admission for acute alcohol intoxication/withdrawal asking for admission for medical stabilization. Patient stated that he drinks 8 cans of 24 ounces of beer daily and he has been doing this daily for 2 months. Before that, he has been drinking alcohol intermittently. He complains of abdominal pain, dull aching pain, diffuse, nonlocalized, has been going on since yesterday, associated with nausea and vomiting and without aggravating or relieving factors. He reported some diarrhea as well. He denied fever or chills. Apparently, patient is noncompliant and has been not taking his medication as appropriately. He did mention that he takes his Lovenox twice daily. He denied chest pain, shortness of breath. He reported chronic smoking cough. He had a history of mitral valve replacement with mechanical valve and he has been on Lovenox for anticoagulation. He has history of paroxysmal A. fib and status post pacemaker. He has history of hypertension which has been under control with Coreg, lisinopril and HCTZ. In the emergency department, he was afebrile, blood pressure was slight elevated, other vital signs were stable. Routine blood work was remarkable for leukopenia, thrombocytopenia, sodium of 133, potassium is 2.8. LFT was unremarkable. Lipase was normal. Blood alcohol level was 116. CT scan abdomen and pelvis without contrast revealed mild left perinephric stranding, no other acute pathology. Patient is being admitted for acute alcohol intoxication/withdrawal for medical stabilization as well as for abdominal pain of unclear etiology. Past Medical History Past Medical History (Chronic Problems): Chronic Problems (Last Reviewed 01/11/20 @ 18:[address] Mike Cardona MD) Alcohol dependence (Chronic) Essential hypertension (Chronic) Alcohol abuse (Chronic) H/O mitral valve replacement with mechanical valve (Chronic ~2010) 27mm [address] Sharan Mitral Valve prosthesis Nonrheumatic aortic (valve) insufficiency (Chronic) Hyperlipidemia (Chronic) Presence of permanent cardiac pacemaker (Chronic) Paroxysmal atrial fibrillation (Chronic) Medical History: Medical History (Last Reviewed 01/11/20 @ 18:[address] Mike Cardona MD) Essential hypertension (Chronic) I10 Nonrheumatic aortic (valve) insufficiency (Chronic) I35.1 Hyperlipidemia (Chronic) E78.5 Presence of permanent cardiac pacemaker (Chronic) Z95.0 Paroxysmal atrial fibrillation (Chronic) I48.0 Dementia F03.90 Alcoholic cirrhosis K70.30 Alcoholism /alcohol abuse F10.20 BPH (benign prostatic hyperplasia) N40.0 COPD (chronic obstructive pulmonary disease) J44.9 Depression F32.9 History of GI bleed Z87.19 HTN (hypertension) (Inactive) I10 Allergies ibuprofen Adverse Reaction (Verified 01/11/20 15:45) Upset Stomach metronidazole Adverse Reaction (Verified 01/11/20 15:45) Upset Stomach naproxen [From Aleve] Adverse Reaction (Verified 01/11/20 15:45) gi upset Home Medications: Ambulatory Orders Medication Instructions Recorded Ascorbic Acid [Vitamin C] 1,000 mg PO BID 08/18/17 Carvedilol [Coreg (Beta Brock)] 3.125 mg PO BID 08/18/17 Donepezil HCl [Aricept] 10 mg PO QHS 08/18/17 Ferrous Sulfate 325 mg PO DAILY 08/18/17 Finasteride [Proscar] 5 mg PO DAILY 08/18/17 Omeprazole 40 mg PO DAILY 08/18/17 Thiamine Mononitrate (Vit B1) 100 mg PO DAILY 08/18/17 [Vitamin B-1] Trazodone HCl 300 mg PO QHS 08/18/17 Warfarin [Coumadin] 5 mg PO SUMOTUWETHFR 10/01/18 oxybutynin chloride 5 mg tablet 5 mg PO TID tab 11/29/18 lisinopril 10 mg tablet 10 mg PO DAILY #90 tab 04/26/19 Folic Acid 1 mg PO DAILY 05/26/19 Sennosides/Docusate Sodium 1 ea PO BID 05/26/19 [Senexon-S 50-8.6 mg Tablet] cholecalciferol (vitamin D3) 10 10 mcg PO DAILY 07/24/19 mcg (400 unit) capsule paroxetine HCl 10 mg tablet 10 mg PO DAILY 07/24/19 paroxetine HCl 40 mg tablet 40 mg PO DAILY tab 07/24/19 pramipexole 0.5 mg tablet 0.5 mg PO DAILY 07/24/19 atorvastatin 20 mg tablet 20 mg PO QHS #30 tab 10/07/19 acamprosate 333 mg tablet,delayed 333 mg PO TID tab 12/06/19 release enoxaparin 80 mg/0.8 mL 80 mg SC Q12H 12/06/19 subcutaneous syringe fluticasone 113 mcg-salmeterol 14 1 inh INHALATION BID 12/06/19 mcg/actuation breath activated powdr furosemide 40 mg tablet 60 mg PO BID 30 Days #90 tab 12/06/19 hydroxyzine HCl 25 mg tablet 25 mg PO QHS PRN 12/06/19 potassium chloride 10 mEq 10 meq PO DAILY #60 tab 12/06/19 tablet,extended release tiotropium bromide 18 mcg capsule 1 cap INHALATION DAILY 12/24/19 with inhalation device Surgical History: Surgical History (Last Reviewed 01/11/20 @ 18:[address] Mike Cardona MD) H/O mitral valve replacement with mechanical valve (Chronic) Onset Date: ~[address] Sharan Mitral Valve prosthesis History of arthroscopy of left shoulder Z98.890 History of cholecystectomy Z98.890, Z90.49 History of hernia repair Z98.890, Z87.19 History of sinus surgery Z98.890 Status post mitral valve replacement Onset Date: ~[address] Sharan Mitral Valve prosthesis Surgical History: - - mechanical mitral valve neck surgery, back surgery, right hip pinned. Psychiatric History: Anxiety Lives: Alone Smoking Status: Current every day smoker Tobacco Use: Cigarettes Alcohol: Heavy Drugs: Marijuana - *Family History Maternal Family History: Family History (Last Reviewed 01/11/20 @ 18:[address] Mike Cardona MD) Mother Heart disease Father Heart disease CVA (cerebral vascular accident) Brother Heart disease Diabetes Sister Heart disease Paternal Family History: Family History (Last Reviewed 01/11/20 @ 18:[address] Mike Cardona MD) Mother Heart disease Father Heart disease CVA (cerebral vascular accident) Brother Heart disease Diabetes Sister Heart disease History Items: - Sibling Family History: Family History (Last Reviewed 01/11/20 @ 18:[address] Mike Cardona MD) Mother Heart disease Father Heart disease CVA (cerebral vascular accident) Brother Heart disease Diabetes Sister Heart disease Review of Systems Constitutional: Reports: Anorexia. Denies: Chills, Fever, Weakness Eyes: Denies: Blurred vision, Double vision, Drainage, Redness HEENT: Denies: Difficulty Hearing, Ear Pain, Eye Pain, Nasal Congestion, Sore Throat Cardiovascular: Denies: Chest Pain, Chest Pressure, Edema, Heaviness, Palpitations, Syncope Respiratory: Denies: Cough, Pleuritic Pain, Shortness of Breath, Sputum production, Wheezing Gastrointestinal: Reports: Abdominal Pain, Diarrhea, Nausea, Vomiting. Denies: Constipation, Hematochezia, Melena Genitourinary: Denies: Dysuria, Frequency, Hematuria Musculoskeletal: Denies: Arm Pain, Back Pain, Foot Pain Skin: Denies: Dryness, Rash Neurological: Denies: Balance problems, Change in Speech, Slurred speech, Confusion, Headaches, Incoordination Psychiatric: Reports: Anxiety, Depression Endocrine: Denies: Change in Body Habitus, Polydipsia, Polyuria VTE Information - Inpt Only VTE Present on Admission: No VTE Mechan Device Prophylaxis: None VTE Pharm Prophylaxis ordered?: No Patient Problems: Active and Suspected Problems (Last Reviewed 01/11/20 @ 18:[address] Mike Cardona MD) Hypokalemia (Acute) Abdominal pain (Acute) Acute alcohol withdrawal (Acute) - Physical Exam Vitals/I&O's: Vital Signs Temp Pulse Resp BP Pulse Ox 98.5 F 82 18 165/80 H 95 01/11/20 16:32 01/11/20 18:08 01/11/20 18:08 01/11/20 18:08 01/11/20 18:08 Oxygen Delivery Method Room Air Weight: 122 lb 12.76 oz Body Mass Index (BMI) 21.7 Finger Stick Blood Glucose 109 General: Alert, Oriented x3, Cooperative, No apparent distress HEENT: Atraumatic, PERRLA, EOMI, Normocephalic Oral: Moist Mucosa, No Gingival or Mucosal Lesions/ Ulcerations Neck: Supple, No JVD, Negative Carotid Bruits, Trachea Midline, Thyroid Normal Size and Texture Lungs: Clear to auscultation, Normal air movement, No rhonchi, No wheeze, No rales, Diminished Cardiovascular: Regular rate, Regular Rhythm, Normal S1, Normal S2, PMI Normal, - - Metallic click. Abdomen: Bowel Sounds Present, Soft, Non Tender, Non-Distended, No Hepato-splenomegaly Extremities: No clubbing, No cyanosis, No edema Skin: No rashes, No breakdown Lymphatic: No Cervical, Supraclavicular, or Inguinal Adenopathy Neurological: Cranial nerves II-XII grossly intact, Motor Exam 5/5 strength throughout Psych/Mental Status: Normal Affect, Appropriate, Alert and oriented to time, place, person, mood and affect Laboratory Results 01/11/20 16:30: Sodium 133 L, Potassium 2.8 L, Chloride 98, Carbon Dioxide 26.0, Anion Gap 9, BUN 3 L, Creatinine 0.71, Estim Creat Clear Calc 86.08, Est GFR (MDRD) Af Amer 144, Est GFR (MDRD) Non-Af 119, BUN/Creatinine Ratio 4.2 L, Glucose 104, Calcium 8.5, Total Bilirubin 0.60, AST 121 H, ALT 36, Alkaline Phosphatase 65, Troponin I 0.037, Total Protein 6.9, Albumin 3.1 L, Globulin 3.8, Albumin/Globulin Ratio 0.8 L, Lipase 89 01/11/20 16:30: Ethyl Alcohol 116.0 01/11/20 16:30: WBC 3.1 L, RBC 4.24 L, Hgb 14.4, Hct 40.1, MCV 94.6 H, MCH 34.0 H, MCHC 35.9, RDW Std Deviation 50.2 H, RDW Coeff of Harjeet 14.9 H, Plt Count 113 L, MPV 10.0, Immature Gran % (Auto) 0.300, Neut % (Auto) 59.5, Lymph % (Auto) 26.1, [place] % (Auto) 12.9 H, Eos % (Auto) 0.6, Baso % (Auto) 0.6, Absolute Neuts (auto) 1.8 L, Absolute Lymphs (auto) 0.81 L, Nucleated RBC % 0 Assessment/Plan All Active Problems (Last Reviewed 01/11/20 @ 18:[address] Mike Cardona MD) Hypokalemia (Acute) Abdominal pain (Acute) Abdominal pain (Acute) Acute alcohol withdrawal (Acute) This is a 59 years old male patient presented to the emergency room requesting admission for acute alcohol withdrawal for medical stabilization and he complains of abdominal pain for which CT scan abdomen and pelvis done and showed no acute pathology apart from mild left perinephric stranding. #1 acute alcohol intoxication/withdrawal: Blood alcohol level is 116. Blood pressure was left elevated, other vital signs are stable. LFT and lipase were normal. Plan: Admit to [facility] floor, telemetry, initiate alcohol withdrawal protocol with tapering phenobarbital, as needed Bentyl, gabapentin, Vistaril, Imodium, Zofran, start folic acid and thiamine supplement, trazodone as needed, repeat CBC and CMP tomorrow morning, consult 180 program. #2 abdominal pain: Unclear etiology, could be due to gastritis secondary to alcohol drinking. CT scan abdomen pelvis reviewed, revealed mild left perinephric stranding. Patient denied any left flank pain, afebrile, no leukocytosis. Plan: IV fluids, PPI, urinalysis, urine culture. At this time, no indication to start IV antibiotics. #3 hyponatremia/hypokalemia: Likely because of alcohol drinking or diarrhea. Plan to replace potassium with IV potassium chloride, IV fluids as above, repeat BMP tomorrow morning. #4 status post mitral valve replacement with mechanical valve: Continue therapeutic Lovenox 3 times daily, check INR. #5 paroxysmal atrial fibrillation status post pacemaker: Heart rate stable, continue home medication 1 home medication list updated. #6 hypertension: Blood pressure stable, continue home medications. #7 alcohol abuse: Plan as above. #8 suspected COPD: DuoNeb every 6 hours, albuterol as needed, pulse ox is maintained on room air. #9 DVT prophylaxis: Patient will be on therapeutic Lovenox twice daily. This note was generated with Glassdoor[employer] software. It may contain incorrect words, spelling, and punctuation that were not noted in checking the note before signing. Inpatient E&M: 49538 Init Hosp L2
[2020-01-11 19:07] LABS: Prothrombin Time (Protime)PT. 12.8 SECONDS (11.7-14.9)
--- NOTE | 2020-01-11 19:14 | CASEMGMT ---
SOCIAL WORK Patient admitted to [facility] for alcohol withdrawal management. Call to [facility] Treatment Navigator, Arianna. Updated on admission. Per Arianna, painting and coating worker will be in either tomorrow or Monday to complete assessment. Fely John, IR[employer]ER [employer] PRESSER, [employer]CH[employer] STUFFER
[2020-01-11] MEDS: Ipratropium/Albuterol Sulfate 3 ML AMPUL.NEB INHALATION (19:30)
[2020-01-11] MEDS: Potassium Chloride 10mEq/100mL 10 MEQ/100 ML IV.SOLN. 100 MEQ IV BOLUS ×2 (19:37→20:55)
[2020-01-11] MEDS: 0.9% Normal Saline 1,000 ML 75 ML IV (19:37)
[2020-01-11] MEDS: 0.9% Saline Lock 10 ML Syringe IV (19:37)
[2020-01-11] MEDS: Pantoprazole Sodium 40 MG Tablet PO (19:42)
[2020-01-11] MEDS: Phenobarbital 32.4 MG Tablet 64.8 MG PO ×2 (19:42→23:48)
[2020-01-11 20:13] LABS: Magnesium 1.7 mg/dL (1.6-2.6)
[2020-01-11] MEDS: traZODone 100 MG Tablet PO (21:07)
[2020-01-12] VITALS (14 sets, daily range): BP systolic 121–154; BP diastolic 72–91; PULSE 78–104; RESP 18–20; TEMP 36.6–37.8; O2SAT 92–94
[2020-01-12] MEDS: Ipratropium/Albuterol Sulfate 3 ML AMPUL.NEB INHALATION ×3 (00:40→13:36)
[2020-01-12] MEDS: Phenobarbital 32.4 MG Tablet 64.8 MG PO ×6 (03:52→23:45)
[2020-01-12 04:27] LABS: Bacteria 0 SEEN /hpf (None Seen); Mucous, Urine 0 SEEN /hpf (<or=2+); Squamous Epithelial Cells - UA 0 SEEN /hpf (0-5); White Blood Cells 0 SEEN /hpf (0-5)
[2020-01-12 04:29] LABS: Color, Urine Yellow (Yellow); Glucose, Dipstick Normal (Normal); Ketone-Dipstick 15 mg/dl (Negative); Leukocyte Esterase-Dipstick Negative /ul (Negative); Nitrite-Dipstick Negative (Negative); Occult Blood-Urine 10 /ul (Negative); Protein-Dipstick Negative (Negative); Urine Bilirubin Dipstick Negative (Negative); Urine Clarity Clear (Clear); Urine Urobilinogen Normal (Normal)
[2020-01-12 04:35] LABS: Red Blood Cells-Urine 0-5 SEEN /hpf (0-5)
[2020-01-12 05:20] LABS: Absolute Lymphocyte Count 0.68 X10^3/uL (0.83-4.51); Absolute Neutrophil Count 2.1 X10^3/uL (2.0-7.7); Basophil# 0.03 X10^3/uL; Basophil% 0.9 % (0-1); Eosinophil# 0.03 X10^3/uL; Eosinophils% 0.9 % (0-5); Hematocrit 33.3 % (40-54); Hemoglobin 11.6 g/dL (13.0-16.5); Lymphocyte # 0.68 X10^3/ul (4.0); Lymphocyte % 21.4 % (19-41); Mean Corp Hgb Conc 34.8 g/dL (32-36); Mean Corpuscular Hgb 33.7 pg (27.0-32.0); Mean Corpuscular Volume 96.8 fL (80-94); Mean Platelet Vol. 10.5 fl (6.2-12.0); Monocyte# 0.38 X10^3/uL; Monocyte% 11.9 % (0-10); NRBC Flagged by Analyzer 0 % (0-5); Neutrophil # 2.05 X10^3/uL (2.7-7.7); Neutrophil % 64.6 % (47-70); POSITIVE COUNT YES; Platelet Count 84 K/mm3 (150-450); RBC Distribution Width SD 51.4 fl (35.1-43.9); Red Blood Count 3.44 M/mm3 (4.6-6.2); White Blood Count 3.2 K/mm3 (4.4-11.0)
[2020-01-12 05:39] LABS: ALB/GLOB Ratio 0.8 RATIO (0.9-2.4); AST(SGOT) 86 U/L (15-37); Alanine Aminotransfer ALT/SGPT 29 U/L (16-61); Albumin, Serum 2.5 g/dL (3.2-5.0); Alkaline Phosphatase 50 U/L (45-117); Anion Gap 7 (5-15); BUN 2 mg/dL (7-18); BUN/Creat Ratio 3.5 RATIO (10-20); Calcium,Total 7.4 mg/dL (8.5-10.1); Chloride 99 mmol/L (98-107); Creatinine, Serum 0.56 mg/dL (0.70-1.30); EST Glomerular Filtration Rate 156 mL/min (>60); Est Glom Filt Rate - Afr Amer 189 mL/min (>60); Estimated Creatinine Clearance 104.87 ml/min; Glucose 75 mg/dL (74-106); Potassium 3.5 mmol/L (3.5-5.1); Protein, Total 5.5 g/dL (6.4-8.2); Sodium Level 132 mmol/L (136-145)
[2020-01-12] MEDS: Loperamide 2 MG Capsule PO (06:34)
[2020-01-12] MEDS: Acetaminophen 500 MG Tablet PO ×4 (06:34→23:45)
[2020-01-12] MEDS: hydrOXYzine PAM 25 MG Capsule 50 MG PO (06:35)
[2020-01-12] MEDS: Enoxaparin 60 MG/0.6 ML Syringe SC ×2 (06:43→17:18)
--- NOTE | 2020-01-12 06:55 | NURSING ---
Ok to give lovenox 60 sc with platelets of [address] Cardona
--- NOTE | 2020-01-12 07:41 | PN_ITS ---
Patient Problems: Active and Suspected Problems (Last Reviewed 01/11/20 @ 18:[address] Mike Cardona MD) Hypokalemia (Acute) Abdominal pain (Acute) Acute alcohol withdrawal (Acute) Reason for Visit: Follow-up on acute alcohol withdrawal/electrolyte imbalances Subjective: Patient was seen and examined. Denied any new complaints. No acute events overnight. Objective: Physical exam: General: Alert, Oriented x3, Cooperative, No apparent distress, appears chronically unwell, cachectic HEENT: Atraumatic, PERRLA, EOMI, Normocephalic Oral: Moist Mucosa, No Gingival or Mucosal Lesions/ Ulcerations Neck: Supple, No JVD, Negative Carotid Bruits, Trachea Midline, Thyroid Normal Size and Texture Lungs: Clear to auscultation, Normal air movement, No rhonchi, No wheeze, No ra les, Diminished Cardiovascular: Regular rate, Regular Rhythm, Normal S1, Normal S2, PMI Normal, - - Metallic click. Abdomen: Bowel Sounds Present, Soft, Non Tender, Non-Distended, No Hepato- splenomegaly Extremities: No clubbing, No cyanosis, No edema Skin: No rashes, No breakdown Lymphatic: No Cervical, Supraclavicular, or Inguinal Adenopathy Neurological: Cranial nerves II-XII grossly intact, Motor Exam 5/5 strength throughout Psych/Mental Status: Normal Affect, Appropriate, Alert and oriented to time, place, person, mood and affect Vitals/I&O's: Vital Signs Temp Pulse Resp BP Pulse Ox 99.1 F 87 18 130/78 H 93 01/12/20 06:24 01/12/20 06:24 01/12/20 06:24 01/12/20 06:24 01/12/20 06:24 Oxygen Delivery Method Room Air Weight: 53.524 kg Body Mass Index (BMI) 20.9 Finger Stick Blood Glucose 109 Intake and Output for Last 24 Hours 01/10/20 01/11/20 01/12/20 23:59 23:59 23:59 Intake Total 1200 / 2100 1900 / 1900 Output Total 500 / 500 Balance 1200 / 2100 1400 / 1400 Laboratory Results 01/11/20 16:30: Sodium 133 L, Potassium 2.8 L, Chloride 98, Carbon Dioxide 26.0, Anion Gap 9, BUN 3 L, Creatinine 0.71, Estim Creat Clear Calc 86.08, Est GFR (MDRD) Af Amer 144, Est GFR (MDRD) Non-Af 119, BUN/Creatinine Ratio 4.2 L, Glucose 104, Calcium 8.5, Total Bilirubin 0.60, AST 121 H, ALT 36, Alkaline Phosphatase 65, Troponin I 0.037, Total Protein 6.9, Albumin 3.1 L, Globulin 3.8, Albumin/Globulin Ratio 0.8 L, Lipase 89 01/11/20 16:30: Ethyl Alcohol 116.0 01/11/20 16:30: WBC 3.1 L, RBC 4.24 L, Hgb 14.4, Hct 40.1, MCV 94.6 H, MCH 34.0 H, MCHC 35.9, RDW Std Deviation 50.2 H, RDW Coeff of Harjeet 14.9 H, Plt Count 113 L , MPV 10.0, Immature Gran % (Auto) 0.300, Neut % (Auto) 59.5, Lymph % (Auto) 26.1, [place] % (Auto) 12.9 H, Eos % (Auto) 0.6, Baso % (Auto) 0.6, Absolute Neuts (auto) 1.8 L, Absolute Lymphs (auto) 0.81 L, Nucleated RBC % 0 01/11/20 16:50: PT 12.8, INR 1.0 01/11/20 19:39: Magnesium 1.7 01/12/20 03:57: Urine Color Yellow, Urine Clarity Clear, Urine pH 7.0, Ur Specific [place] 1.010, Urine Protein Negative, Urine Glucose (UA) Normal, Urine Ketones 15 H, Urine Occult Blood 10 H, Urine Nitrite Negative, Urine Bilirubin Negative, Urine Urobilinogen Normal, Ur Leukocyte Esterase Negative, Urine RBC 0-5 SEEN, Urine WBC 0 SEEN, Ur Squamous Epith Cells 0 SEEN, Urine Bacteria 0 SEEN, Urine Mucus 0 SEEN 01/12/20 04:47: WBC 3.2 L, RBC 3.44 L, Hgb 11.6 L, Hct 33.3 L, MCV 96.8 H, MCH 33.7 H, MCHC 34.8, RDW Std Deviation 51.4 H, RDW Coeff of Harjeet 15.0 H, Plt Count 84 L, MPV 10.5, Immature Gran % (Auto) 0.300, Neut % (Auto) 64.6, Lymph % (Auto) 21.4, [place] % (Auto) 11.9 H, Eos % (Auto) 0.9, Baso % (Auto) 0.9, Absolute Neuts (auto) 2.1, Absolute Lymphs (auto) 0.68 L, Nucleated RBC % 0 01/12/20 04:47: Sodium 132 L, Potassium 3.5, Chloride 99, Carbon Dioxide 26.0, Anion Gap 7, BUN 2 L, Creatinine 0.56 L, Estim Creat Clear Calc 104.87, Est GFR (MDRD) Af Amer 189, Est GFR (MDRD) Non-Af 156, BUN/Creatinine Ratio 3.5 L, Glucose 75, Calcium 7.4 L, Total Bilirubin 0.70, AST 86 H, ALT 29, Alkaline Phosphatase 50, Total Protein 5.5 L, Albumin 2.5 L, Globulin 3.0, Albumin/Globulin Ratio 0.8 L Current Medications Acetaminophen (Acetaminophen 500 Mg Tablet) 500 mg PO Q4H PRN PRN PRN Reason: Temp > 100.4 F Last Admin: 01/12/20 06:34 Dose: 500 mg Documented by: Albuterol/Ipratropium (Ipratropium/Albuterol Sulfate 3 Ml Ampul.Neb) 3 ml INHALATION Q6H.RT [facility] Last Admin: 01/12/20 07:30 Dose: 3 ml Documented by: Dicyclomine HCl (Dicyclomine 10 Mg Capsule) 20 mg PO Q6H PRN PRN PRN Reason: abdominal discomfort Enoxaparin Sodium (Enoxaparin 60 Mg/0.6 Ml Syringe) 60 mg SC Q12@0600,1800 [facility] Last Admin: 01/12/20 06:43 Dose: 60 mg Documented by: Folic Acid (Folic Acid 1 Mg Tablet) 1 mg PO DAILY@0800 [facility] Gabapentin (Gabapentin 300 Mg Capsule) 300 mg PO Q8H PRN PRN PRN Reason: moderate to severe anxiety Hydroxyzine Pamoate (Hydroxyzine Magy 25 Mg Capsule) 50 mg PO Q4H PRN PRN PRN Reason: mild anxiety Last Admin: 01/12/20 06:35 Dose: 50 mg Documented by: Sodium Chloride () 1,000 mls @ 75 mls/hr IV .[id number] [facility] Stop: 01/12/20 08:13 Last Admin: 01/11/20 19:37 Dose: 75 mls/hr Documented by: Sodium Chloride () 250 mls @ 15 mls/hr IV .[id number] PRN PRN Reason: Saline Flush Sodium Chloride () 250 mls @ 15 mls/hr IV .[id number] PRN PRN Reason: Additional IVPB Infusion Loperamide HCl (Loperamide 2 Mg Capsule) 2 mg PO Q4H PRN PRN PRN Reason: LOOSE STOOLS Last Admin: 01/12/20 06:34 Dose: 2 mg Documented by: Nicotine (Nicotine 21 Mg Patch) 21 mg TRANSDERM. DAILY [facility] Last Admin: 01/11/20 19:42 Dose: 21 mg Documented by: Nutritional Formula (Lactose Free) (Ensure Enlive 120 Ml Liquid) 120 ml PO 4X/DAY [facility] Ondansetron HCl (Ondansetron 8 Mg Tablet) 8 mg PO Q8H PRN PRN PRN Reason: NAUSEA Pantoprazole Sodium (Pantoprazole Sodium 40 Mg Tablet) 40 mg PO BID [facility] Last Admin: 01/11/20 19:42 Dose: 40 mg Documented by: Phenobarbital (Phenobarbital 32.4 Mg Tablet) 97.2 mg PO Q4H [facility]; Taper Stop: 01/16/20 03:29 Last Admin: 01/12/20 06:51 Dose: 97.2 mg Documented by: Sodium Chloride (0.9% Saline Lock 10 Ml Syringe) 10 - 40 ml IV UD PRN PRN Reason: SALINE FLUSH Last Admin: 01/11/20 19:37 Dose: 10 ml Documented by: Thiamine HCl (Thiamine Hydrochloride 100 Mg Tablet) 100 mg PO DAILYCM [facility] Trazodone HCl (Trazodone 100 Mg Tablet) 100 mg PO QHS PRN PRN Reason: INSOMNIA Last Admin: 01/11/20 21:07 Dose: 100 mg Documented by: STROKE Vital Signs/Narrative: Vital Signs Temp Pulse Resp BP Pulse Ox 01/12/20 06:24 99.1 F 87 18 130/78 H 93 Medical Necessity - Tobacco Use Smoking Status: Current every day smoker Tobacco Use: Cigarettes Assessment/Plan All Active Problems (Last Reviewed 01/11/20 @ 18:[address] Mike Cardona MD) Hypokalemia (Acute) Abdominal pain (Acute) Abdominal pain (Acute) Acute alcohol withdrawal (Acute) 59-year-old who was admitted for acute alcohol withdrawal. 1. Acute alcohol withdrawal, CIWA score this morning is 7 Admitting alcohol level is 116. History of heavy alcohol use Patient continues to require medication and monitoring for withdrawal based on regular assessment and remains appropriate for ASAM level 4.0 Continue on phenobarb taper started, continue on folic acid, multivitamin, thiamine 2. Possible alcoholic gastritis, improved with oral pantoprazole twice daily 3. Hyponatremia/hypokalemia/hypomagnesemia, improved, replaced Repeat blood work in a.m. 4. Mechanical mitral valve, patient was on therapeutic Lovenox and Coumadin at home Currently only on Lovenox because home medications list cannot reliably be obtained until Monday Recheck INR, continue on Lovenox for now 5. PAF, rate controlled, continue on Eliquis Home med list still pending 6. Hypertension, controlled, on continue with home regimen 7. COPD, not in acute exacerbation, will continue with prn breathing treatments, continue on oxygen 8. DVT PPx- on therapeutic Lovenox IN Inpatient E&M: 76405 Subs Hosp L2
[2020-01-12] MEDS: Dicyclomine 10 MG Capsule 20 MG PO (07:43)
[2020-01-12] MEDS: Gabapentin 300 MG Capsule PO ×2 (07:43→17:22)
[2020-01-12] MEDS: Ondansetron 8 MG Tablet PO (07:43)
[2020-01-12] MEDS: Pantoprazole Sodium 40 MG Tablet PO ×2 (07:45→21:24)
[2020-01-12] MEDS: Thiamine Hydrochloride 100 MG Tablet PO (07:45)
[2020-01-12] MEDS: Folic Acid 1 MG Tablet PO (07:45)
[2020-01-12 08:17] LABS: Magnesium 1.5 mg/dL (1.6-2.6)
[2020-01-12] MEDS: Magnesium Sulfate 4gm/100mL 4 GM/100 ML IV.SOLN. IV (14:29)
[2020-01-12] MEDS: Ascorbic Acid 500 MG Tablet 1000 MG PO (21:21)
[2020-01-12] MEDS: Oxybutynin 5 MG Tablet PO (21:21)
[2020-01-12] MEDS: Atorvastatin Calcium 20 MG Tablet PO (21:21)
[2020-01-12] MEDS: Pramipexole Di-HCl 0.5 MG Tablet PO (21:23)
[2020-01-12] MEDS: Donepezil HCl 10 MG Tablet PO (21:23)
--- NOTE | 2020-01-12 21:56 | CPS ---
PATIENT REFUSED TREATMENT AT 1900. UNABLE TO DOCUMENT IN MAR
--- NOTE | 2020-01-12 21:57 | CPS ---
PATIENT REFUSED TREATMENT AT 1900 UNABLE TO DOCUMENT REFUSAL IN MAR
[2020-01-12] MEDS: traZODone 100 MG Tablet PO (22:22)
[2020-01-13 03:30] VITALS: BP 119/87; PULSE 80; RESP 18; TEMP 38.7; O2SAT 93
[2020-01-13] MEDS: Phenobarbital 32.4 MG Tablet 64.8 MG PO ×6 (03:52→23:54)
--- NOTE | 2020-01-13 04:30 | RAD_ITS ---
STUDY: X-RAY CHEST REASON FOR EXAM: Male, 59 years old. fever TECHNIQUE: AP portable chest. COMPARISON: June 19, 2019. FINDINGS: The lungs are clear and expanded. There is no demonstrated pleural abnormality. Normal size heart. Calcified mediastinal lymph node. Normal visualized pulmonary arteries. Normal visualized aortic arch and descending thoracic aorta. Normal visualized thoracic spine. Normal visualized ribs, clavicles, and shoulders. There are sternal wires. Prosthetic mitral valve. Cardiac pacemaker right hemithorax. There is no demonstrated abnormality of the visualized soft tissue structures of the upper abdomen. RAD/Chest 1 View (Portable) IMPRESSION: Stable chest, no acute cardiopulmonary disease. Old granulomatous disease. Electronically Signed: Adair Hussein MD at 5:00 EDT , Service support ,
[2020-01-13 06:05] LABS: Absolute Lymphocyte Count 0.67 X10^3/uL (0.83-4.51); Absolute Neutrophil Count 2.9 X10^3/uL (2.0-7.7); Basophil# 0.02 X10^3/uL; Basophil% 0.5 % (0-1); Eosinophil# 0.04 X10^3/uL; Hematocrit 39.3 % (40-54); Hemoglobin 13.9 g/dL (13.0-16.5); Lymphocyte # 0.67 X10^3/ul (4.0); Lymphocyte % 17.3 % (19-41); Mean Corp Hgb Conc 35.4 g/dL (32-36); Mean Corpuscular Hgb 34.2 pg (27.0-32.0); Mean Corpuscular Volume 96.6 fL (80-94); Mean Platelet Vol. 10.5 fl (6.2-12.0); Monocyte# 0.29 X10^3/uL; Monocyte% 7.5 % (0-10); NRBC Flagged by Analyzer 0 % (0-5); Neutrophil # 2.86 X10^3/uL (2.7-7.7); Neutrophil % 73.7 % (47-70); POSITIVE COUNT YES; Platelet Count 84 K/mm3 (150-450); RBC Distribution Width CV 14.6 % (11.6-14.6); RBC Distribution Width SD 50.9 fl (35.1-43.9); Red Blood Count 4.07 M/mm3 (4.6-6.2); White Blood Count 3.9 K/mm3 (4.4-11.0)
[2020-01-13 06:25] LABS: International Normalized Ratio 1.1; Prothrombin Time (Protime)PT. 13.2 SECONDS (11.7-14.9)
[2020-01-13 06:45] LABS: ALB/GLOB Ratio 0.7 RATIO (0.9-2.4); AST(SGOT) 69 U/L (15-37); Alanine Aminotransfer ALT/SGPT 32 U/L (16-61); Albumin, Serum 2.7 g/dL (3.2-5.0); Alkaline Phosphatase 59 U/L (45-117); Anion Gap 5 (5-15); BUN 4 mg/dL (7-18); BUN/Creat Ratio 5.8 RATIO (10-20); Calcium,Total 8.2 mg/dL (8.5-10.1); Chloride 94 mmol/L (98-107); Creatinine, Serum 0.69 mg/dL (0.70-1.30); EST Glomerular Filtration Rate 123 mL/min (>60); Est Glom Filt Rate - Afr Amer 149 mL/min (>60); Estimated Creatinine Clearance 85.11 ml/min; Globulin 3.7 g/dL (2.2-4.2); Glucose 91 mg/dL (74-106); Potassium 3.1 mmol/L (3.5-5.1); Protein, Total 6.4 g/dL (6.4-8.2); Sodium Level 131 mmol/L (136-145)
[2020-01-13] MEDS: Oxybutynin 5 MG Tablet PO ×3 (06:45→21:22)
[2020-01-13] MEDS: Enoxaparin 60 MG/0.6 ML Syringe SC ×2 (06:46→17:21)
--- NOTE | 2020-01-13 07:15 | CPS ---
Morning tx not given, pt sleeping
--- NOTE | 2020-01-13 08:25 | PCM.PN.HOSP ---
Patient Problems: Active and Suspected Problems (Last Reviewed 01/11/20 @ 18:[address] Mike Cardona MD) Hypokalemia (Acute) Abdominal pain (Acute) Acute alcohol withdrawal (Acute) Reason for Visit: Acute alcohol withdrawal Hypokalemia Hyponatremia Hypomagnesemia Subjective: Patient is a 59-year-old gentleman with multiple comorbidities admitted with acute alcohol withdrawal. Hospital stay complicated by a number of electrolyte abnormalities Objective: GENERAL: cooperative HEENT: Atraumatic; EYES; Anicteric, Normal Conjunctiva NECK; supple, normal thyroid, RESPIRATORY: Diminished to auscultation CARDIOVASCULAR: Regular S1 S2, GI: soft, normoactive bowel sounds, : No Renal angle tenderness; EXTREMITIES: No edema, no clubbing, MUSCULOSKELETAL: no muscle waisting NEURO: Awake; no lateralizing signs. SKIN: No Rash PSYCH; Flat affect Vitals/I&O's: Vital Signs Temp Pulse Resp BP Pulse Ox 101.6 F H 80 18 119/87 H 93 01/13/20 03:30 01/13/20 03:30 01/13/20 03:30 01/13/20 03:30 01/13/20 03:30 Oxygen Delivery Method Room Air Weight: 53.524 kg Body Mass Index (BMI) 20.9 Finger Stick Blood Glucose 109 Intake and Output for Last 24 Hours 01/11/20 01/12/20 01/13/20 23:59 23:59 23:59 Intake Total 1200 / 2100 3760 / 4260 1000 / 1000 Output Total 1750 / 2250 1000 / 1000 Balance 1200 / 2100 2009 0 / 0 Laboratory Results 01/13/20 04:28: COVID-19 (CHERYL) Not Detected 01/13/20 05:50: PT 13.2, INR 1.1 01/13/20 05:50: WBC 3.9 L, RBC 4.07 L, Hgb 13.9, Hct 39.3 L, MCV 96.6 H, MCH 34.2 H, MCHC 35.4, RDW Std Deviation 50.9 H, RDW Coeff of Harjeet 14.6, Plt Count 84 L, MPV 10.5, Immature Gran % (Auto) 0.000, Neut % (Auto) 73.7 H, Lymph % (Auto) 17.3 L, [place] % (Auto) 7.5, Eos % (Auto) 1.0, Baso % (Auto) 0.5, Absolute Neuts (auto) 2.9, Absolute Lymphs (auto) 0.67 L, Nucleated RBC % 0 01/13/20 05:50: Sodium 131 L, Potassium 3.1 L, Chloride 94 L, Carbon Dioxide 32.0, Anion Gap 5, BUN 4 L, Creatinine 0.69 L, Estim Creat Clear Calc 85.11, Est GFR (MDRD) Af Amer 149, Est GFR (MDRD) Non-Af 123, BUN/Creatinine Ratio 5.8 L, Glucose 91, Calcium 8.2 L, Total Bilirubin 0.90, AST 69 H, ALT 32, Alkaline Phosphatase 59, Total Protein 6.4, Albumin 2.7 L, Globulin 3.7, Albumin/Globulin Ratio 0.7 L Current Medications Acetaminophen (Acetaminophen 500 Mg Tablet) 500 mg PO Q4H PRN PRN PRN Reason: Temp > 100.4 F Last Admin: 01/12/20 23:45 Dose: 500 mg Documented by: Albuterol/Ipratropium (Ipratropium/Albuterol Sulfate 3 Ml Ampul.Neb) 3 ml INHALATION Q6HWA.RT [facility] Ascorbic Acid (Ascorbic Acid 500 Mg Tablet) 1,000 mg PO BID [facility] [place] Last Admin: 01/12/20 21:21 Dose: 1,000 mg Documented by: Atorvastatin Calcium (Atorvastatin Calcium 20 Mg Tablet) 20 mg PO QHS [facility] [place] Last Admin: 01/12/20 21:21 Dose: 20 mg Documented by: Budesonide (Budesonide Respules 0.5 Mg/2 Ml Ampul.Neb.) 0.5 mg INHALATION Q12H.RT [facility] [place] Carvedilol (Carvedilol 3.125 Mg Tablet) 3.125 mg PO BIDCM [facility] [place] Dicyclomine HCl (Dicyclomine 10 Mg Capsule) 20 mg PO Q6H PRN PRN PRN Reason: abdominal discomfort Last Admin: 01/12/20 07:43 Dose: 20 mg Documented by: Donepezil HCl (Donepezil Hcl 10 Mg Tablet) 10 mg PO QHS [facility] [place] Last Admin: 01/12/20 21:23 Dose: 10 mg Documented by: Enoxaparin Sodium (Enoxaparin 60 Mg/0.6 Ml Syringe) 60 mg SC Q12@0600,1800 [facility] [place] Last Admin: 01/13/20 06:46 Dose: 60 mg Documented by: Ferrous Sulfate (Ferrous Sulfate 325 Mg Tablet) 325 mg PO DAILY@1200 [facility] [place] Finasteride (Finasteride 5 Mg Tablet) 5 mg PO DAILY [facility] [place] Folic Acid (Folic Acid 1 Mg Tablet) 1 mg PO DAILY@0800 [facility] [place] Last Admin: 01/12/20 07:45 Dose: 1 mg Documented by: Furosemide (Furosemide 20 Mg Tablet) 60 mg PO DAILY [facility] [place] Gabapentin (Gabapentin 300 Mg Capsule) 300 mg PO Q8H PRN PRN PRN Reason: moderate to severe anxiety Last Admin: 01/12/20 17:22 Dose: 300 mg Documented by: Hydroxyzine Pamoate (Hydroxyzine Magy 25 Mg Capsule) 50 mg PO Q4H PRN PRN PRN Reason: mild anxiety Last Admin: 01/12/20 06:35 Dose: 50 mg Documented by: Sodium Chloride () 250 mls @ 15 mls/hr IV .[id number] PRN PRN Reason: Saline Flush Sodium Chloride () 250 mls @ 15 mls/hr IV .[id number] PRN PRN Reason: Additional IVPB Infusion Lisinopril (Lisinopril 10 Mg Tablet) 10 mg PO DAILY [facility] [place] Loperamide HCl (Loperamide 2 Mg Capsule) 2 mg PO Q4H PRN PRN PRN Reason: LOOSE STOOLS Last Admin: 01/12/20 06:34 Dose: 2 mg Documented by: Nicotine (Nicotine 21 Mg Patch) 21 mg TRANSDERM. DAILY [facility] [place] Last Admin: 01/12/20 07:46 Dose: 21 mg Documented by: Nutritional Formula (Lactose Free) (Ensure Enlive 120 Ml Liquid) 120 ml PO 4X/DAY [facility] [place] Last Admin: 01/12/20 21:29 Dose: 120 ml Documented by: Ondansetron HCl (Ondansetron 8 Mg Tablet) 8 mg PO Q8H PRN PRN PRN Reason: NAUSEA Last Admin: 01/12/20 07:43 Dose: 8 mg Documented by: Oxybutynin Chloride (Oxybutynin 5 Mg Tablet) 5 mg PO TID [facility] [place] Last Admin: 01/13/20 06:45 Dose: 5 mg Documented by: Pantoprazole Sodium (Pantoprazole Sodium 40 Mg Tablet) 40 mg PO BID [facility] [place] Last Admin: 01/12/20 21:24 Dose: 40 mg Documented by: Paroxetine HCl (Paroxetine 20 Mg Tablet) 40 mg PO DAILY [facility] [place] Phenobarbital (Phenobarbital 32.4 Mg Tablet) 64.8 mg PO Q4H [facility] [place]; Taper Stop: 01/16/20 03:29 Last Admin: 01/13/20 06:45 Dose: 64.8 mg Documented by: Potassium Chloride (Potassium Chloride 10 Meq Tablet) 40 meq PO BIDCOX [facility]ANSON Potassium Chloride (Potassium Chloride 20 Meq Tablet) 40 meq PO X1 ONE Stop: 01/13/20 08:25 Pramipexole Dihydrochloride (Pramipexole Di-Hcl 0.5 Mg Tablet) 0.5 mg PO QHS [facility] [place] Last Admin: 01/12/20 21:23 Dose: 0.5 mg Documented by: Senna/Docusate Sodium (Senna/Docusate Sodium 1 Tablet) 1 tablet PO BID [facility] [place] Last Admin: 01/12/20 21:26 Dose: Not Given Documented by: Sodium Chloride (0.9% Saline Lock 10 Ml Syringe) 10 - 40 ml IV UD PRN PRN Reason: SALINE FLUSH Last Admin: 01/11/20 19:37 Dose: 10 ml Documented by: Thiamine HCl (Thiamine Hydrochloride 100 Mg Tablet) 100 mg PO DAILYCOX BRANSON Last Admin: 01/12/20 07:45 Dose: 100 mg Documented by: Trazodone HCl (Trazodone 100 Mg Tablet) 100 mg PO QHS PRN PRN Reason: INSOMNIA Last Admin: 01/12/20 22:22 Dose: 100 mg Documented by: Warfarin Sodium (Warfarin 5 Mg Tablet) 5 mg PO DAILY@1700 [facility] Medical Necessity - Tobacco Use Smoking Status: Current every day smoker Tobacco Use: Cigarettes Assessment/Plan All Active Problems (Last Reviewed 01/11/20 @ 18:[address] Mike Cardona MD) Hypokalemia (Acute) Abdominal pain (Acute) Abdominal pain (Acute) Acute alcohol withdrawal (Acute) 59-year-old gentleman with history of chronic alcohol use presented with acute alcohol withdrawal 1. Acute alcohol withdrawal -admitted to regular nursing floor undergoing medical stabilization using phenobarb taper, folic acid multivitamin and thiamine. Consult placed to case management regarding ongoing care once patient is discharged 2. Suspected gastritis ?Patient placed on Protonix 3. Hyponatremia ?Due to the beer potomania patient sodium levels remains low. Currently on fluid restriction with subsequent monitoring of electrolytes 4. Hypokalemia corrected per protocol -Potassium replaced per protocol with subsequent monitoring of electrolytes 5. Hypomagnesemia -corrected per protocol 6. Paroxysmal atrial fibrillation ?Hold on systemic anticoagulation with Coumadin with a subtherapeutic INR currently on bridging Lovenox 7.? Mechanical mitral valve -Patient INR remains low on Lovenox whilst monitoring INR 2, potassium 2.5?3.5 8. Hypertension - Blood pressure controlled, home medications continued with dose adjustment as needed 9. COPD ?Currently not in exacerbation aerosol treatment as needed 10. DVT prophylaxis -On warfarin Advance planning; did discuss with the patient and family regarding advanced directives as well as CODE STATUS. Did explain the various scenarios involved ( FULL CODE, DNR CCA, DNR CCA with no intubation, and DNR CC and what each meant) patient elected to remain full code with CPR and intubation if needed. Order was placed. Time spent on discussion 18 minutes. Active Medications Acetaminophen (Acetaminophen 500 Mg Tablet) 500 mg PO Q4H PRN PRN PRN Reason: Temp > 100.4 F Last Admin: 01/13/20 08:32 Dose: 500 mg Documented by: Albuterol/Ipratropium (Ipratropium/Albuterol Sulfate 3 Ml Ampul.Neb) 3 ml INHALATION Q6HWA.RT [facility] Ascorbic Acid (Ascorbic Acid 500 Mg Tablet) 1,000 mg PO BID [facility] [place] Last Admin: 01/13/20 08:33 Dose: 1,000 mg Documented by: Atorvastatin Calcium (Atorvastatin Calcium 20 Mg Tablet) 20 mg PO QHS [facility] [place] Last Admin: 01/12/20 21:21 Dose: 20 mg Documented by: Budesonide (Budesonide Respules 0.5 Mg/2 Ml Ampul.Neb.) 0.5 mg INHALATION Q12H.RT [facility] [place] Carvedilol (Carvedilol 3.125 Mg Tablet) 3.125 mg PO BIDCOX BRANSON Dicyclomine HCl (Dicyclomine 10 Mg Capsule) 20 mg PO Q6H PRN PRN PRN Reason: abdominal discomfort Last Admin: 01/12/20 07:43 Dose: 20 mg Documented by: Donepezil HCl (Donepezil Hcl 10 Mg Tablet) 10 mg PO QHS [facility] [place] Last Admin: 01/12/20 21:23 Dose: 10 mg Documented by: Enoxaparin Sodium (Enoxaparin 60 Mg/0.6 Ml Syringe) 60 mg SC Q12@0600,1800 [facility] [place] Last Admin: 01/13/20 06:46 Dose: 60 mg Documented by: Ferrous Sulfate (Ferrous Sulfate 325 Mg Tablet) 325 mg PO DAILY@1200 [facility] [place] Last Admin: 01/13/20 08:32 Dose: 325 mg Documented by: Finasteride (Finasteride 5 Mg Tablet) 5 mg PO DAILY [facility] [place] Last Admin: 01/13/20 08:32 Dose: 5 mg Documented by: Folic Acid (Folic Acid 1 Mg Tablet) 1 mg PO DAILY@0800 [facility] [place] Last Admin: 01/13/20 08:32 Dose: 1 mg Documented by: Furosemide (Furosemide 20 Mg Tablet) 60 mg PO DAILY [facility] [place] Last Admin: 01/13/20 08:32 Dose: 60 mg Documented by: Gabapentin (Gabapentin 300 Mg Capsule) 300 mg PO Q8H PRN PRN PRN Reason: moderate to severe anxiety Last Admin: 01/12/20 17:22 Dose: 300 mg Documented by: Hydroxyzine Pamoate (Hydroxyzine Magy 25 Mg Capsule) 50 mg PO Q4H PRN PRN PRN Reason: mild anxiety Last Admin: 01/13/20 08:32 Dose: 50 mg Documented by: Sodium Chloride () 250 mls @ 15 mls/hr IV .[id number] PRN PRN Reason: Saline Flush Sodium Chloride () 250 mls @ 15 mls/hr IV .[id number] PRN PRN Reason: Additional IVPB Infusion Lisinopril (Lisinopril 10 Mg Tablet) 10 mg PO DAILY [facility] [place] Loperamide HCl (Loperamide 2 Mg Capsule) 2 mg PO Q4H PRN PRN PRN Reason: LOOSE STOOLS Last Admin: 01/12/20 06:34 Dose: 2 mg Documented by: Nicotine (Nicotine 21 Mg Patch) 21 mg TRANSDERM. DAILY [facility] [place] Last Admin: 01/12/20 07:46 Dose: 21 mg Documented by: Nutritional Formula (Lactose Free) (Ensure Enlive 120 Ml Liquid) 120 ml PO 4X/DAY [facility] [place] Last Admin: 01/12/20 21:29 Dose: 120 ml Documented by: Ondansetron HCl (Ondansetron 8 Mg Tablet) 8 mg PO Q8H PRN PRN PRN Reason: NAUSEA Last Admin: 01/12/20 07:43 Dose: 8 mg Documented by: Oxybutynin Chloride (Oxybutynin 5 Mg Tablet) 5 mg PO TID [facility] [place] Last Admin: 01/13/20 06:45 Dose: 5 mg Documented by: Pantoprazole Sodium (Pantoprazole Sodium 40 Mg Tablet) 40 mg PO BID [facility] [place] Last Admin: 01/13/20 08:32 Dose: 40 mg Documented by: Paroxetine HCl (Paroxetine 20 Mg Tablet) 40 mg PO DAILY [facility] [place] Last Admin: 01/13/20 08:32 Dose: 40 mg Documented by: Phenobarbital (Phenobarbital 32.4 Mg Tablet) 64.8 mg PO Q4H [facility] [place]; Taper Stop: 01/16/20 03:29 Last Admin: 01/13/20 06:45 Dose: 64.8 mg Documented by: Potassium Chloride (Potassium Chloride 10 Meq Tablet) 40 meq PO BIDCOX BRANSON Potassium Chloride (Potassium Chloride 20 Meq Tablet) 40 meq PO X1 ONE Stop: 01/13/20 08:25 Pramipexole Dihydrochloride (Pramipexole Di-Hcl 0.5 Mg Tablet) 0.5 mg PO QHS [facility] [place] Last Admin: 01/12/20 21:23 Dose: 0.5 mg Documented by: Senna/Docusate Sodium (Senna/Docusate Sodium 1 Tablet) 1 tablet PO BID [facility] [place] Last Admin: 01/13/20 08:33 Dose: Not Given Documented by: Sodium Chloride (0.9% Saline Lock 10 Ml Syringe) 10 - 40 ml IV UD PRN PRN Reason: SALINE FLUSH Last Admin: 01/11/20 19:37 Dose: 10 ml Documented by: Thiamine HCl (Thiamine Hydrochloride 100 Mg Tablet) 100 mg PO DAILYCOX BRANSON Last Admin: 01/13/20 08:32 Dose: 100 mg Documented by: Trazodone HCl (Trazodone 100 Mg Tablet) 100 mg PO QHS PRN PRN Reason: INSOMNIA Last Admin: 01/12/20 22:22 Dose: 100 mg Documented by: Warfarin Sodium (Warfarin 5 Mg Tablet) 5 mg PO DAILY@1700 [facility] Inpatient E&M: 58515 [facility] Procedures: 74062 Advncd Care Plan 30 Min
[2020-01-13] MEDS: Pantoprazole Sodium 40 MG Tablet PO ×2 (08:32→21:22)
[2020-01-13] MEDS: Furosemide 20 MG Tablet 60 MG PO (08:32)
[2020-01-13] MEDS: hydrOXYzine PAM 25 MG Capsule 50 MG PO ×2 (08:32→21:22)
[2020-01-13] MEDS: Thiamine Hydrochloride 100 MG Tablet PO (08:32)
[2020-01-13] MEDS: Folic Acid 1 MG Tablet PO (08:32)
[2020-01-13] MEDS: Paroxetine 20 MG Tablet 40 MG PO (08:32)
[2020-01-13] MEDS: Ferrous Sulfate 325 MG Tablet PO (08:32)
[2020-01-13] MEDS: Acetaminophen 500 MG Tablet PO ×3 (08:32→21:20)
[2020-01-13] MEDS: Finasteride 5 MG Tablet PO (08:32)
[2020-01-13] MEDS: Ascorbic Acid 500 MG Tablet 1000 MG PO ×2 (08:33→21:20)
--- NOTE | 2020-01-13 09:35 | ADDICTION ---
This rewriter met with patient in his room to conduct ASAM, MSE and AUDIT assessments and to begin discharge planning. Patient was alert and oriented and presented with depressed mood and flat affect. He stated that he is not feeling well but understands that alcohol withdrawal is uncomfortable. Based on his ASAM assessment, he appears appropriate for the 4.0 LOC. Patient is engaged with [facility] for counseling and case management services. He is willing to schedule with his counselor and/or case loader operator upon d/c from [facility]. This rewriter will attempt to coordinate with Val to provide coordination of care. Client amiable. Client denied need for transportation upon d/c. He plans to d/c home.
[2020-01-13 09:42] VITALS: BP 108/75; PULSE 96; RESP 18; TEMP 37.2; O2SAT 93
[2020-01-13] MEDS: Carvedilol 3.125 MG TABLET PO ×2 (09:46→17:20)
[2020-01-13] MEDS: Lisinopril 10 MG Tablet PO (09:46)
[2020-01-13] MEDS: Budesonide Respules 0.5 MG/2 ML AMPUL.NEB. INHALATION ×2 (13:16→19:16)
[2020-01-13] MEDS: Ipratropium/Albuterol Sulfate 3 ML AMPUL.NEB INHALATION ×2 (13:17→19:16)
[2020-01-13 13:36] VITALS: PULSE 92; RESP 18
[2020-01-13] MEDS: Gabapentin 300 MG Capsule PO (14:58)
--- NOTE | 2020-01-13 15:52 | CHAPLAIN ---
Type of Pastoral Visit _x__ Initial Visit ___ Follow-up Visit ___ On-call Visit ___ General Patient Visit ___ Spiritual Assessment ___ Family Conference ___ Bereavement ___ Rapid Response ___ Code Blue ___ Other (describe below) Pastoral Care Referral From _x__ Patient ___ Family ___ Nurse ___ Physician ___ Beta Tester ___ Occ Ther ___ Other (describe below) Sacrament/Intervention _x__ Active listening ___ Anointing ___ Restorationism ___ Bereavement ___ Communion _x__ Pascale exploration ___ _x__ Life review _x__ Prayer ___ Reconciliation ___ Sacrament of Sick _x__ Supportive presence ___ Wedding ___ Other (describe below) Pastoral Comments patient requests information about churches in the [facility] that are open for quaker and support; information given
[2020-01-13 19:16] VITALS: PULSE 100; RESP 18
[2020-01-13 20:20] VITALS: BP 99/69; PULSE 99; RESP 18; TEMP 37.1; O2SAT 97
[2020-01-13 20:35] LABS: Color, Urine Yellow (Yellow); Glucose, Dipstick Normal (Normal); Ketone-Dipstick Negative (Negative); Leukocyte Esterase-Dipstick Negative /ul (Negative); Nitrite-Dipstick Negative (Negative); Occult Blood-Urine 10 /ul (Negative); Protein-Dipstick 15 mg/dl (Negative); Urine Bilirubin Dipstick Negative (Negative); Urine Clarity Sl. Cloudy (Clear); Urine Urobilinogen 4 mg/dl (Normal)
[2020-01-13] MEDS: traZODone 100 MG Tablet PO (21:19)
[2020-01-13] MEDS: Atorvastatin Calcium 20 MG Tablet PO (21:22)
[2020-01-13] MEDS: Pramipexole Di-HCl 0.5 MG Tablet PO (21:22)
[2020-01-13] MEDS: Phenazopyridine 95 MG Tablet PO (21:22)
[2020-01-13] MEDS: Donepezil HCl 10 MG Tablet PO (21:23)
[2020-01-14 03:36] VITALS: BP 112/73; PULSE 100; RESP 16; TEMP 38.2; O2SAT 93
[2020-01-14] MEDS: Phenobarbital 32.4 MG Tablet 64.8 MG PO ×3 (03:42→14:58)
[2020-01-14] MEDS: Acetaminophen 500 MG Tablet PO ×2 (03:43→11:53)
[2020-01-14 06:03] LABS: Prothrombin Time (Protime)PT. 12.6 SECONDS (11.7-14.9)
[2020-01-14 06:22] LABS: Anion Gap 7 (5-15); BUN 7 mg/dL (7-18); BUN/Creat Ratio 12.8 RATIO (10-20); Chloride 88 mmol/L (98-107); Creatinine, Serum 0.55 mg/dL (0.70-1.30); EST Glomerular Filtration Rate 161 mL/min (>60); Est Glom Filt Rate - Afr Amer 195 mL/min (>60); Estimated Creatinine Clearance 106.78 ml/min; Glucose 93 mg/dL (74-106); Magnesium 1.5 mg/dL (1.6-2.6); Potassium 3.4 mmol/L (3.5-5.1); Sodium Level 126 mmol/L (136-145)
[2020-01-14] MEDS: Oxybutynin 5 MG Tablet PO ×2 (06:43→14:54)
[2020-01-14] MEDS: Enoxaparin 60 MG/0.6 ML Syringe SC (06:44)
[2020-01-14] MEDS: Phenazopyridine 95 MG Tablet PO ×2 (06:44→14:54)
[2020-01-14] MEDS: Ipratropium/Albuterol Sulfate 3 ML AMPUL.NEB INHALATION (06:52)
[2020-01-14] MEDS: Budesonide Respules 0.5 MG/2 ML AMPUL.NEB. INHALATION (06:52)
[2020-01-14 06:57] VITALS: PULSE 89; RESP 18; O2SAT 95
[2020-01-14 08:47] VITALS: BP 116/85; PULSE 101; RESP 18; TEMP 36.7; O2SAT 96
[2020-01-14] MEDS: Ascorbic Acid 500 MG Tablet 1000 MG PO (08:51)
[2020-01-14] MEDS: Finasteride 5 MG Tablet PO (08:51)
[2020-01-14] MEDS: Ferrous Sulfate 325 MG Tablet PO (08:52)
[2020-01-14] MEDS: Folic Acid 1 MG Tablet PO (08:52)
[2020-01-14] MEDS: Thiamine Hydrochloride 100 MG Tablet PO (08:52)
[2020-01-14] MEDS: Carvedilol 3.125 MG TABLET PO (08:52)
[2020-01-14] MEDS: Furosemide 20 MG Tablet 60 MG PO (08:52)
[2020-01-14] MEDS: Paroxetine 20 MG Tablet 40 MG PO (08:52)
[2020-01-14] MEDS: Lisinopril 10 MG Tablet PO (08:52)
[2020-01-14] MEDS: Pantoprazole Sodium 40 MG Tablet PO (08:53)
--- NOTE | 2020-01-14 08:53 | CASEMGMT ---
Social Work Note Ashley with [employer] updated this worker that pt has appointment with Tom at [facility] on 01/24/2020 at 11:45am. Flori Dangelo UTILIZATION ENGINEER, LICENSED PESTICIDE APPLICATOR
--- NOTE | 2020-01-14 10:43 | PCM.NTREPORT ---
Nutrition Therapy Report - History Current diet / nutrition support order:: Cardiac/heart healthy diet. 120 ml ensure enlive w/ medpass 4 x daily - Anthropometric Measurements Height:: 5 ft 3 in Weight:: 53.5 kg Body Mass Index (BMI):: 20.9 - Relevant Labs Relevant Labs:: WBC 3.9 K/mm3 (4.4-11.0) L 01/13/20 05:50 RBC 4.07 M/mm3 (4.6-6.2) L 01/13/20 05:50 Hgb 11.6 g/dL (13.0-16.5) L 01/12/20 04:47 Hct 39.3 % (40-54) L 01/13/20 05:50 MCV 96.6 fL (80-94) H 01/13/20 05:50 MCH 34.2 pg (27.0-32.0) H 01/13/20 05:50 RDW Std Deviation 50.9 fl (35.1-43.9) H 01/13/20 05:50 RDW Coeff of Harjeet 15.0 % (11.6-14.6) H 01/12/20 04:47 Plt Count 84 K/mm3 (150-450) L 01/13/20 05:50 Neut % (Auto) 73.7 % (47-70) H 01/13/20 05:50 Lymph % (Auto) 17.3 % (19-41) L 01/13/20 05:50 [place] % (Auto) 11.9 % (0-10) H 01/12/20 04:47 Absolute Neuts (auto) 1.8 X10^3/uL (2.0-7.7) L 01/11/20 16:30 Absolute Lymphs (auto) 0.67 X10^3/uL (0.83-4.51) L 01/13/20 05:50 Sodium 126 mmol/L (136-145) L 01/14/20 05:12 Potassium 3.4 mmol/L (3.5-5.1) L 01/14/20 05:12 Chloride 88 mmol/L (98-107) L 01/14/20 05:12 BUN 4 mg/dL (7-18) L 01/13/20 05:50 Creatinine 0.55 mg/dL (0.70-1.30) L 01/14/20 05:12 BUN/Creatinine Ratio 5.8 RATIO (10-20) L 01/13/20 05:50 Calcium 8.0 mg/dL (8.5-10.1) L 01/14/20 05:12 Magnesium 1.5 mg/dL (1.6-2.6) L 01/14/20 05:12 AST 69 U/L (15-37) H 01/13/20 05:50 Total Protein 5.5 g/dL (6.4-8.2) L 01/12/20 04:47 Albumin 2.7 g/dL (3.2-5.0) L 01/13/20 05:50 Albumin/Globulin Ratio 0.7 RATIO (0.9-2.4) L 01/13/20 05:50 - Assessment Food / Nutrition-Related History:: Pt reports declining montse/intake over ~4-7 days prior to admission and wt loss has been decreasing on account of my drinking over the past 6-12 months per pt. Calculated~13-15% wt loss x past 6-12 months; pt reports UBW~140 lbs. Wt loss is significant for malnutrition along with declining intake due to ETOH dependence. PO has been improved since admission & taking~50-100% of meals and accepting of ensure enlive w/ medpass. - Nutrition Diagnosis Problem / Etiology / Signs & Symptoms (PES):: Severe pro/israel malnutrition in the context of social factors related to ETOH dependence and inadequate oral intake as evidenced by ~13-15% wt loss x past 6-12 months, overall poor intake <50% of est needs x past 4-6 weeks and mild muscle and fat depletion per +NFPA mostly with noted wasting in face, temples, legs & clavicle. Evidence of Malnutrition Exists:: Yes Severe PCM:: Social & Environmental circumstances - Nutrition Intervention Nutrition Prescription:: Estimated Nutrition needs~[id number] kcal and ~65-75 gm protein/day for repletion of pro/energy. - Food / Nutrient Delivery Interventions Summary of nutrition intervention:: Continue ensure enlive w/ medpass 120 mls 4 times daily and added magic cup BID; ONS will provide additional 1280 kcal and 58 gm protein per day. Nutrition education provided?: Yes - MNT Monitoring Further MNT monitoring and evaluation required?: Yes MNT Follow-up in:: 3-5 days
[2020-01-14 10:51] VITALS: BMI 20.9
--- NOTE | 2020-01-14 11:28 | PCM.PN.HOSP ---
Patient Problems: Active and Suspected Problems (Last Reviewed 01/11/20 @ 18:[address] Mike Cardona MD) Hypokalemia (Acute) Abdominal pain (Acute) Acute alcohol withdrawal (Acute) Reason for Visit: Alcohol withdrawal Hypomagnesemia Hypokalemia Hyponatremia Subjective: Patient is a 59-year-old gentleman on admission for acute alcohol withdrawal. Plan was for the patient to have been discharged home to follow-up with [facility] counseling services as outpatient however patient was found to have significant electrolyte abnormalities including hyponatremia hypokalemia hypomagnesemia. Objective: GENERAL: cooperative HEENT: Atraumatic; EYES; Anicteric, Normal Conjunctiva NECK; supple, normal thyroid, RESPIRATORY: Diminished to auscultation CARDIOVASCULAR: Regular S1 S2, GI: soft, normoactive bowel sounds, : No Renal angle tenderness; EXTREMITIES: No edema, no clubbing, MUSCULOSKELETAL: no muscle waisting NEURO: Awake; no lateralizing signs. SKIN: No Rash PSYCH; Flat affect Vitals/I&O's: Vital Signs Temp Pulse Resp BP Pulse Ox 98.1 F 101 H 18 116/85 H 96 01/14/20 08:47 01/14/20 08:47 01/14/20 08:47 01/14/20 08:47 01/14/20 08:47 Oxygen Delivery Method Room Air Weight: 53.5 kg Body Mass Index (BMI) 20.9 Finger Stick Blood Glucose 109 Intake and Output for Last 24 Hours 01/12/20 01/13/20 01/14/20 23:59 23:59 23:59 Intake Total 3760 / 4260 1480 / 1480 250 / 250 Output Total 1750 / 2250 1999 350 / 350 Balance 2009 -520 / -520 -100 / -100 Microbiology Past 72 Hours 01/12/20 03:57 Urine, Clean Catch Urine Culture - Final Culture exhibits no growth. Laboratory Results 01/13/20 20:13: Urine Color Yellow, Urine Clarity Sl. Cloudy, Urine pH 7.0, Ur Specific [place] 1.010, Urine Protein 15 H, Urine Glucose (UA) Normal, Urine Ketones Negative, Urine Occult Blood 10 H, Urine Nitrite Negative, Urine Bilirubin Negative, Urine Urobilinogen 4 H, Ur Leukocyte Esterase Negative 01/14/20 05:12: PT 12.6, INR 1.0 01/14/20 05:12: Sodium 126 L, Potassium 3.4 L, Chloride 88 L, Carbon Dioxide 31.0, Anion Gap 7, BUN 7, Creatinine 0.55 L, Estim Creat Clear Calc 106.78, Est GFR (MDRD) Af Amer 195, Est GFR (MDRD) Non-Af 161, BUN/Creatinine Ratio 12.8, Glucose 93, Calcium 8.0 L, Magnesium 1.5 L Current Medications Acetaminophen (Acetaminophen 500 Mg Tablet) 500 mg PO Q4H PRN PRN PRN Reason: Temp > 100.4 F Last Admin: 01/14/20 03:43 Dose: 500 mg Documented by: Albuterol/Ipratropium (Ipratropium/Albuterol Sulfate 3 Ml Ampul.Neb) 3 ml INHALATION Q6HWA.RT [facility] Last Admin: 01/14/20 06:52 Dose: 3 ml Documented by: Ascorbic Acid (Ascorbic Acid 500 Mg Tablet) 1,000 mg PO BID [facility] Last Admin: 01/14/20 08:51 Dose: 1,000 mg Documented by: Atorvastatin Calcium (Atorvastatin Calcium 20 Mg Tablet) 20 mg PO QHS [facility] Last Admin: 01/13/20 21:22 Dose: 20 mg Documented by: Budesonide (Budesonide Respules 0.5 Mg/2 Ml Ampul.Neb.) 0.5 mg INHALATION Q12H.RT [facility] Last Admin: 01/14/20 06:52 Dose: 0.5 mg Documented by: Carvedilol (Carvedilol 3.125 Mg Tablet) 3.125 mg PO BIDCM [facility] Last Admin: 01/14/20 08:52 Dose: 3.125 mg Documented by: Dicyclomine HCl (Dicyclomine 10 Mg Capsule) 20 mg PO Q6H PRN PRN PRN Reason: abdominal discomfort Last Admin: 01/12/20 07:43 Dose: 20 mg Documented by: Donepezil HCl (Donepezil Hcl 10 Mg Tablet) 10 mg PO QHS [facility] Last Admin: 01/13/20 21:23 Dose: 10 mg Documented by: Enoxaparin Sodium (Enoxaparin 60 Mg/0.6 Ml Syringe) 60 mg SC Q12@0600,1800 [facility] Last Admin: 01/14/20 06:44 Dose: 60 mg Documented by: Ferrous Sulfate (Ferrous Sulfate 325 Mg Tablet) 325 mg PO DAILY@1200 [facility] Last Admin: 01/14/20 08:52 Dose: 325 mg Documented by: Finasteride (Finasteride 5 Mg Tablet) 5 mg PO DAILY [facility] Last Admin: 01/14/20 08:51 Dose: 5 mg Documented by: Folic Acid (Folic Acid 1 Mg Tablet) 1 mg PO DAILY@0800 [facility] Last Admin: 01/14/20 08:52 Dose: 1 mg Documented by: Furosemide (Furosemide 20 Mg Tablet) 60 mg PO DAILY [facility] Last Admin: 01/14/20 08:52 Dose: 60 mg Documented by: Gabapentin (Gabapentin 300 Mg Capsule) 300 mg PO Q8H PRN PRN PRN Reason: moderate to severe anxiety Last Admin: 01/13/20 14:58 Dose: 300 mg Documented by: Hydroxyzine Pamoate (Hydroxyzine Magy 25 Mg Capsule) 50 mg PO Q4H PRN PRN PRN Reason: mild anxiety Last Admin: 01/13/20 21:22 Dose: 50 mg Documented by: Sodium Chloride () 250 mls @ 15 mls/hr IV .[id number] PRN PRN Reason: Saline Flush Sodium Chloride () 250 mls @ 15 mls/hr IV .[id number] PRN PRN Reason: Additional IVPB Infusion Magnesium Sulfate 2 gm/ Sodium (Chloride) 104 mls @ 52 mls/hr IV X1 ONE Stop: 01/14/20 13:08 Lisinopril (Lisinopril 10 Mg Tablet) 10 mg PO DAILY [facility] Last Admin: 01/14/20 08:52 Dose: 10 mg Documented by: Loperamide HCl (Loperamide 2 Mg Capsule) 2 mg PO Q4H PRN PRN PRN Reason: LOOSE STOOLS Last Admin: 01/12/20 06:34 Dose: 2 mg Documented by: Magnesium Chloride (Magnesium Chloride 64 Mg Delay Rel.Tablet) 128 mg PO BID [facility] Nicotine (Nicotine 21 Mg Patch) 21 mg TRANSDERM. DAILY [facility] Last Admin: 01/14/20 08:53 Dose: Not Given Documented by: Nutritional Formula (Lactose Free) (Ensure Enlive 120 Ml Liquid) 120 ml PO 4X/DAY [facility] Last Admin: 01/14/20 08:51 Dose: 120 ml Documented by: Ondansetron HCl (Ondansetron 8 Mg Tablet) 8 mg PO Q8H PRN PRN PRN Reason: NAUSEA Last Admin: 01/12/20 07:43 Dose: 8 mg Documented by: Oxybutynin Chloride (Oxybutynin 5 Mg Tablet) 5 mg PO TID [facility] Last Admin: 01/14/20 06:43 Dose: 5 mg Documented by: Pantoprazole Sodium (Pantoprazole Sodium 40 Mg Tablet) 40 mg PO BID [facility] Last Admin: 01/14/20 08:53 Dose: 40 mg Documented by: Paroxetine HCl (Paroxetine 20 Mg Tablet) 40 mg PO DAILY [facility] Last Admin: 01/14/20 08:52 Dose: 40 mg Documented by: Phenazopyridine HCl (Phenazopyridine 95 Mg Tablet) 95 mg PO TID [facility] Stop: 01/15/20 14:01 Last Admin: 01/14/20 06:44 Dose: 95 mg Documented by: Phenobarbital (Phenobarbital 32.4 Mg Tablet) 64.8 mg PO Q6H [facility]; Taper Stop: 01/16/20 03:29 Last Admin: 01/14/20 08:52 Dose: 64.8 mg Documented by: Potassium Chloride (Potassium Chloride 20 Meq Tablet) 40 meq PO BIDCM [facility] Last Admin: 01/14/20 08:52 Dose: 40 meq Documented by: Potassium Chloride (Potassium Chloride 20 Meq Tablet) 40 meq PO X1 ONE Stop: 01/14/20 11:22 Pramipexole Dihydrochloride (Pramipexole Di-Hcl 0.5 Mg Tablet) 0.5 mg PO QHS [facility] Last Admin: 01/13/20 21:22 Dose: 0.5 mg Documented by: Senna/Docusate Sodium (Senna/Docusate Sodium 1 Tablet) 1 tablet PO BID [facility] Last Admin: 01/14/20 08:53 Dose: Not Given Documented by: Sodium Chloride (0.9% Saline Lock 10 Ml Syringe) 10 - 40 ml IV UD PRN PRN Reason: SALINE FLUSH Last Admin: 01/11/20 19:37 Dose: 10 ml Documented by: Sodium Chloride (Sodium Chloride 1 Gm Tablet) 1 gm PO TID [facility] Thiamine HCl ([facility] Hydrochloride 100 Mg Tablet) [facility] Last Admin: 01/14/20 08:52 Dose: 100 mg Documented by: Trazodone HCl (Trazodone 100 Mg Tablet) 100 mg PO QHS PRN PRN Reason: INSOMNIA Last Admin: 01/13/20 21:19 Dose: 100 mg Documented by: Warfarin Sodium (Warfarin 5 Mg Tablet) 5 mg PO DAILY@1700 [facility] Last Admin: 01/13/20 17:20 Dose: 5 mg Documented by: STROKE Vital Signs/Narrative: Vital Signs Temp Pulse Resp BP Pulse Ox 01/14/20 08:47 98.1 F 101 H 18 116/85 H 96 Medical Necessity - Tobacco Use Smoking Status: Current every day smoker Tobacco Use: Cigarettes Assessment/Plan All Active Problems (Last Reviewed 01/11/20 @ 18:[address] Mike Cardona MD) Hypokalemia (Acute) Abdominal pain (Acute) Abdominal pain (Acute) Acute alcohol withdrawal (Acute) 59-year-old gentleman with history of chronic alcohol use presented with acute alcohol withdrawal 1. Acute alcohol withdrawal -admitted to regular nursing floor undergoing medical stabilization using phenobarb taper, folic acid multivitamin and thiamine. Consult placed to case management regarding ongoing care once patient is discharged 2. Suspected gastritis ?Patient placed on Protonix 3. Hyponatremia ?Due to the beer potomania patient sodium levels remains low. Currently on fluid restriction with subsequent monitoring of electrolytes -Patient sodium level continue to worsen. Patient was prescribed sodium chloride tablet 4. Hypokalemia corrected per protocol -Potassium replaced per protocol with subsequent monitoring of electrolytes -12/05/2019: Potassium down to 3.4 additional potassium given 5. Hypomagnesemia -corrected per protocol -01/04/2020; magnesium down to 1.5 placed on scheduled magnesium 6. Paroxysmal atrial fibrillation ?Hold on systemic anticoagulation with Coumadin with a subtherapeutic INR currently on bridging Lovenox 7.? Mechanical mitral valve -Patient INR remains low on Lovenox whilst monitoring INR 2, potassium 2.5?3.5 8. Hypertension - Blood pressure controlled, home medications continued with dose adjustment as needed 9. COPD ?Currently not in exacerbation aerosol treatment as needed 10. DVT prophylaxis -On warfarin 11. Severe protein calorie malnutrition - as evidenced by low BMI, decreased energy level and muscle wasting. Patient was seen in consultation by dietitian notes and recommendations reviewed yet Inpatient E&M: 38566 Subs Hosp L2
[2020-01-14] MEDS: 0.9% Saline Lock 10 ML Syringe IV (11:51)
--- NOTE | 2020-01-14 13:57 | CPS ---
pt was asleep did not give 1300 breathing treatment
[2020-01-14 14:50] VITALS: BP 104/71; PULSE 95; RESP 18; TEMP 36.3; O2SAT 98
--- NOTE | 2020-01-14 14:52 | NURSING ---
pt informs said nurse i am going to go home tonight. pt states he has been here long enough, he will follow up with his PCP regarding his lab work. pt agrees to wait until said nurse notifies hospitalist for further recommendations due to pt states he is leaving AMA if the Md does not discharge him despite of electrolytes/labs.
[2020-01-14] MEDS: Sodium Chloride 1 GM Tablet PO (14:56)
--- NOTE | 2020-01-14 15:28 | DCINST_ITS ---
- Discharge Diagnoses Current Active Problems: Current Active and Chronic Problems (Last Reviewed 01/11/20 @ 18:[address] Mike Cardona MD) Hypokalemia (Acute) Abdominal pain (Acute) Acute alcohol withdrawal (Acute) Alcohol dependence (Chronic) Essential hypertension (Chronic) H/O mitral valve replacement with mechanical valve (Chronic ~2009) 27mm mechanical [employer] Mitral Valve prosthesis Hyperlipidemia (Chronic) Presence of permanent cardiac pacemaker (Chronic) Paroxysmal atrial fibrillation (Chronic) You will use the following diet at home:: Regular Discharge Activity: May not drive while taking narcotic pain medications. Allergies/Adverse Reactions: Allergies ibuprofen Adverse Reaction (Verified 01/11/20 15:45) Upset Stomach metronidazole Adverse Reaction (Verified 01/11/20 15:45) Upset Stomach naproxen [From Aleve] Adverse Reaction (Verified 01/11/20 15:45) gi upset Medications to take at Discharge Carvedilol [Coreg (Beta Brock)] 3.125 mg PO BID 08/18/17 Donepezil HCl [Aricept] 10 mg PO QHS 08/18/17 Ferrous Sulfate 325 mg PO DAILY 08/18/17 Finasteride [Proscar] 5 mg PO DAILY 08/18/17 Omeprazole 40 mg PO DAILY 08/18/17 oxybutynin chloride 5 mg tablet 5 mg PO TID tab 11/29/18 Folic Acid 1 mg PO DAILY 05/26/19 Sennosides/Docusate Sodium [Senexon-S 50-8.6 mg Tablet] 1 ea PO BID 05/26/19 paroxetine HCl 10 mg tablet 10 mg PO DAILY 07/24/19 paroxetine HCl 40 mg tablet 40 mg PO DAILY tab 07/24/19 pramipexole 0.5 mg tablet 0.5 mg PO QHS 07/24/19 acamprosate 333 mg tablet,delayed release 2 tablet PO TID tab 12/06/19 fluticasone 113 mcg-salmeterol 14 mcg/actuation breath activated powdr 2 puff INHALATION BID 12/06/19 hydroxyzine HCl 25 mg tablet 25 mg PO TID PRN PRN 12/06/19 tiotropium bromide 18 mcg capsule with inhalation device 1 cap INHALATION DAILY 12/24/19 Ascorbic Acid [C-500] 1,000 mg PO BID 01/12/20 Atorvastatin Calcium [Lipitor] 20 mg PO QHS 01/12/20 Enoxaparin [Lovenox] 60 mg SC Q12@0600,1800 01/12/20 Furosemide 60 mg PO DAILY 01/12/20 Lisinopril [Prinivil] 10 mg PO DAILY 01/12/20 Multivitamin/Iron/Folic Acid [Centrum Adults Tablet] 1 ea PO DAILY 01/12/20 Nystatin 500,000U/5ML [Mycostatin] 5 ml PO 4X/DAY 01/12/20 Pregabalin 100 mg PO BID 01/12/20 Thiamine Hydrochloride [Vitamin B1] 100 mg PO DAILY 01/12/20 Trazodone HCl 2 tab PO QHS 01/12/20 Warfarin [Coumadin] 5 mg PO DAILY 01/12/20 Folic Acid 1 mg PO DAILY@0800 #60 tab 01/14/20 Magnesium Oxide 400 mg PO BID #60 tab 01/14/20 Potassium Chloride [K-Dur] 40 meq PO BIDCM #60 tab 01/14/20 Sodium Chloride 1 gm PO BID #60 tab 01/14/20 Thiamine Hydrochloride [Vitamin B1] 100 mg PO DAILYCM #90 tab 01/14/20 The following prescriptions were given: Folic Acid 1 mg PO DAILY@0800 #60 tab Transmission Status: Pending to [place] [id number] Potassium Chloride [K-Dur] 40 meq PO BIDCM #60 tab Transmission Status: Pending to [place] [address] Magnesium Oxide 400 mg PO BID #60 tab Transmission Status: Pending to [place] [address] Sodium Chloride 1 gm PO BID #60 tab Transmission Status: Pending to [place] [id number] Thiamine Hydrochloride [Vitamin B1] 100 mg PO DAILYCM #90 tab Transmission Status: Pending to [facility] [id number] Primary Care Physician: Josue Cifuentes MD [Primary Care Provider] - Please follow up with your Primary Care Physician in: in 1 week Test Results: Test results from this visit will be discussed in further detail at your follow- up appointment, if applicable. Proposed Discharge Date: 01/14/20
--- NOTE | 2020-01-14 15:31 | PCM.DC.SUM ---
Discharge Date and Diagnosis - Problem List Patient Problems: Active and Suspected Problems (Last Reviewed 01/11/20 @ 18:[address] Mike Cardona MD) Hypokalemia (Acute) Abdominal pain (Acute) Acute alcohol withdrawal (Acute) Date of Admission: 01/11/20 Date of Discharge: 01/14/20 - Primary Discharge Diagnosis Acute Problems: Active Problems (Last Reviewed 01/11/20 @ 18:[address] Mike Cardona MD) Hypokalemia (Acute) Abdominal pain (Acute) Acute alcohol withdrawal (Acute) - Secondary Discharge Diagnosis Chronic Problems: Chronic Problems (Last Reviewed 01/11/20 @ 18:[address] Mike Cardona MD) Alcohol dependence (Chronic) Essential hypertension (Chronic) Alcohol abuse (Chronic) H/O mitral valve replacement with mechanical valve (Chronic ~2009) 27mm mechanical [employer] Sharan Mitral Valve prosthesis Nonrheumatic aortic (valve) insufficiency (Chronic) Hyperlipidemia (Chronic) Presence of permanent cardiac pacemaker (Chronic) Paroxysmal atrial fibrillation (Chronic) Hospital Course and Treatment Imaging Results: Clinical Impression(s) from Imaging Studies Abdomen/Pelvis CT 01/11/20 16:57 IMPRESSION: Fatty liver. Mild left perinephric stranding. Infectious etiology cannot be excluded. Electronically Signed: Samuel Emerson DO at 18:40 EDT Tel [phone], Service support , Chest X-Ray 01/13/20 04:30 IMPRESSION: Stable chest, no acute cardiopulmonary disease. Old granulomatous disease. Electronically Signed: Adair Hussein MD at 5:00 EDT , Service support , Operations: None Summary of Care Provided: 59-year-old gentleman with history of chronic alcohol use presented with acute alcohol withdrawal 1. Acute alcohol withdrawal -admitted to regular nursing floor undergoing medical stabilization using phenobarb taper, folic acid multivitamin and thiamine. Consult placed to case management regarding ongoing care once patient is discharged - Patient insisted on being discharged on 01/04/2020 2. Suspected gastritis ?Patient placed on Protonix 3. Hyponatremia ?Due to the beer potomania patient sodium levels remains low. Currently on fluid restriction with subsequent monitoring of electrolytes -Patient sodium level continue to worsen. Patient was prescribed sodium chloride tablet 4. Hypokalemia corrected per protocol -Potassium replaced per protocol with subsequent monitoring of electrolytes -12/05/2019: Potassium down to 3.4 additional potassium given 5. Hypomagnesemia -corrected per protocol -01/04/2020; magnesium down to 1.5 placed on scheduled magnesium 6. Paroxysmal atrial fibrillation ?Hold on systemic anticoagulation with Coumadin with a subtherapeutic INR currently on bridging Lovenox 7.? Mechanical mitral valve -Patient INR remains low on Lovenox whilst monitoring INR 2, potassium 2.5?3.5 8. Hypertension - Blood pressure controlled, home medications continued with dose adjustment as needed 9. COPD ?Currently not in exacerbation aerosol treatment as needed 10. DVT prophylaxis -On warfarin 11. Severe protein calorie malnutrition - as evidenced by low BMI, decreased energy level and muscle wasting. Patient was seen in consultation by dietitian notes and recommendations reviewed Patient Problems: Active and Suspected Problems (Last Reviewed 01/11/20 @ 18:[address] Mike Cardona MD) Hypokalemia (Acute) Abdominal pain (Acute) Acute alcohol withdrawal (Acute) Objective: GENERAL: cooperative HEENT: Atraumatic; EYES; Anicteric, Normal Conjunctiva NECK; supple, normal thyroid, RESPIRATORY: Diminished to auscultation CARDIOVASCULAR: Regular S1 S2, GI: soft, normoactive bowel sounds, : No Renal angle tenderness; EXTREMITIES: No edema, no clubbing, MUSCULOSKELETAL: no muscle waisting NEURO: Awake; no lateralizing signs. SKIN: No Rash PSYCH; Flat affect - Physical Exam Vitals/I&O's: Vital Signs Temp Pulse Resp BP Pulse Ox 97.3 F L 95 18 104/71 98 01/14/20 14:50 01/14/20 14:50 01/14/20 14:50 01/14/20 14:50 01/14/20 14:50 Oxygen Delivery Method Room Air Weight: 53.5 kg Body Mass Index (BMI) 20.9 Finger Stick Blood Glucose 109 Intake and Output for Last 24 Hours 01/12/20 01/13/20 01/14/20 23:59 23:59 23:59 Intake Total 3760 / 4260 1480 / 1480 368.75 / 368.75 Output Total 1750 / 2250 1999 350 / 350 Balance 2009 -520 / -520 18.75 / 18.75 Microbiology Past 72 Hours 01/12/20 03:57 Urine, Clean Catch Urine Culture - Final Culture exhibits no growth. Laboratory Results 01/13/20 20:13: Urine Color Yellow, Urine Clarity Sl. Cloudy, Urine pH 7.0, Ur Specific Sterling 1.010, Urine Protein 15 H, Urine Glucose (UA) Normal, Urine Ketones Negative, Urine Occult Blood 10 H, Urine Nitrite Negative, Urine Bilirubin Negative, Urine Urobilinogen 4 H, Ur Leukocyte Esterase Negative 01/14/20 05:12: PT 12.6, INR 1.0 01/14/20 05:12: Sodium 126 L, Potassium 3.4 L, Chloride 88 L, Carbon Dioxide 31.0, Anion Gap 7, BUN 7, Creatinine 0.55 L, Estim Creat Clear Calc 106.78, Est GFR (MDRD) Af Amer 195, Est GFR (MDRD) Non-Af 161, BUN/Creatinine Ratio 12.8, Glucose 93, Calcium 8.0 L, Magnesium 1.5 L Current Medications Acetaminophen (Acetaminophen 500 Mg Tablet) 500 mg PO Q4H PRN PRN PRN Reason: Temp > 100.4 F Last Admin: 01/14/20 11:53 Dose: 500 mg Documented by: Albuterol/Ipratropium (Ipratropium/Albuterol Sulfate 3 Ml Ampul.Neb) 3 ml INHALATION Q6HWA.RT [facility] Last Admin: 01/14/20 06:52 Dose: 3 ml Documented by: Ascorbic Acid (Ascorbic Acid 500 Mg Tablet) 1,000 mg PO BID [facility] Last Admin: 01/14/20 08:51 Dose: 1,000 mg Documented by: Atorvastatin Calcium (Atorvastatin Calcium 20 Mg Tablet) 20 mg PO QHS [facility] Last Admin: 01/13/20 21:22 Dose: 20 mg Documented by: Budesonide (Budesonide Respules 0.5 Mg/2 Ml Ampul.Neb.) 0.5 mg INHALATION Q12H.RT [facility] Last Admin: 01/14/20 06:52 Dose: 0.5 mg Documented by: Carvedilol (Carvedilol 3.125 Mg Tablet) 3.125 mg PO BIDCM [facility] Last Admin: 01/14/20 08:52 Dose: 3.125 mg Documented by: Dicyclomine HCl (Dicyclomine 10 Mg Capsule) 20 mg PO Q6H PRN PRN PRN Reason: abdominal discomfort Last Admin: 01/12/20 07:43 Dose: 20 mg Documented by: Donepezil HCl (Donepezil Hcl 10 Mg Tablet) 10 mg PO QHS [facility] Last Admin: 01/13/20 21:23 Dose: 10 mg Documented by: Enoxaparin Sodium (Enoxaparin 60 Mg/0.6 Ml Syringe) 60 mg SC Q12@0600,1800 [facility] Last Admin: 01/14/20 06:44 Dose: 60 mg Documented by: Ferrous Sulfate (Ferrous Sulfate 325 Mg Tablet) 325 mg PO DAILY@1200 [facility] Last Admin: 01/14/20 08:52 Dose: 325 mg Documented by: Finasteride (Finasteride 5 Mg Tablet) 5 mg PO DAILY [facility] Last Admin: 01/14/20 08:51 Dose: 5 mg Documented by: Folic Acid (Folic Acid 1 Mg Tablet) 1 mg PO DAILY@0800 [facility] Last Admin: 01/14/20 08:52 Dose: 1 mg Documented by: Furosemide (Furosemide 20 Mg Tablet) 60 mg PO DAILY [facility] Last Admin: 01/14/20 08:52 Dose: 60 mg Documented by: Gabapentin (Gabapentin 300 Mg Capsule) 300 mg PO Q8H PRN PRN PRN Reason: moderate to severe anxiety Last Admin: 01/13/20 14:58 Dose: 300 mg Documented by: Hydroxyzine Pamoate (Hydroxyzine Magy 25 Mg Capsule) 50 mg PO Q4H PRN PRN PRN Reason: mild anxiety Last Admin: 01/13/20 21:22 Dose: 50 mg Documented by: Sodium Chloride () 250 mls @ 15 mls/hr IV .[id number] PRN PRN Reason: Saline Flush Last Infusion: 01/14/20 14:49 Dose: Infused Documented by: Sodium Chloride () 250 mls @ 15 mls/hr IV .[id number] PRN PRN Reason: Additional IVPB Infusion Lisinopril (Lisinopril 10 Mg Tablet) 10 mg PO DAILY [facility] Last Admin: 01/14/20 08:52 Dose: 10 mg Documented by: Loperamide HCl (Loperamide 2 Mg Capsule) 2 mg PO Q4H PRN PRN PRN Reason: LOOSE STOOLS Last Admin: 01/12/20 06:34 Dose: 2 mg Documented by: Magnesium Chloride (Magnesium Chloride 64 Mg Delay Rel.Tablet) 128 mg PO BID [facility] Nicotine (Nicotine 21 Mg Patch) 21 mg TRANSDERM. DAILY [facility] Last Admin: 01/14/20 08:53 Dose: Not Given Documented by: Nutritional Formula (Lactose Free) (Ensure Enlive 120 Ml Liquid) 120 ml PO 4X/DAY [facility] Last Admin: 01/14/20 14:55 Dose: 120 ml Documented by: Ondansetron HCl (Ondansetron 8 Mg Tablet) 8 mg PO Q8H PRN PRN PRN Reason: NAUSEA Last Admin: 01/12/20 07:43 Dose: 8 mg Documented by: Oxybutynin Chloride (Oxybutynin 5 Mg Tablet) 5 mg PO TID [facility] Last Admin: 01/14/20 14:54 Dose: 5 mg Documented by: Pantoprazole Sodium (Pantoprazole Sodium 40 Mg Tablet) 40 mg PO BID [facility] Last Admin: 01/14/20 08:53 Dose: 40 mg Documented by: Paroxetine HCl (Paroxetine 20 Mg Tablet) 40 mg PO DAILY [facility] Last Admin: 01/14/20 08:52 Dose: 40 mg Documented by: Phenazopyridine HCl (Phenazopyridine 95 Mg Tablet) 95 mg PO TID [facility] Stop: 01/15/20 14:01 Last Admin: 01/14/20 14:54 Dose: 95 mg Documented by: Phenobarbital (Phenobarbital 32.4 Mg Tablet) 64.8 mg PO Q6H [facility]; Taper Stop: 01/16/20 03:29 Last Admin: 01/14/20 14:58 Dose: 64.8 mg Documented by: Potassium Chloride (Potassium Chloride 20 Meq Tablet) 40 meq PO BIDCM [facility] Last Admin: 01/14/20 08:52 Dose: 40 meq Documented by: Pramipexole Dihydrochloride (Pramipexole Di-Hcl 0.5 Mg Tablet) 0.5 mg PO QHS [facility] Last Admin: 01/13/20 21:22 Dose: 0.5 mg Documented by: Senna/Docusate Sodium (Senna/Docusate Sodium 1 Tablet) 1 tablet PO BID [facility] Last Admin: 01/14/20 08:53 Dose: Not Given Documented by: Sodium Chloride (0.9% Saline Lock 10 Ml Syringe) 10 - 40 ml IV UD PRN PRN Reason: SALINE FLUSH Last Admin: 01/14/20 11:51 Dose: 10 ml Documented by: Sodium Chloride (Sodium Chloride 1 Gm Tablet) 1 gm PO TID [facility] Last Admin: 01/14/20 14:56 Dose: 1 gm Documented by: Thiamine HCl (Thiamine Hydrochloride 100 Mg Tablet) 100 mg PO DAILYCM [facility] Last Admin: 01/14/20 08:52 Dose: 100 mg Documented by: Trazodone HCl (Trazodone 100 Mg Tablet) 100 mg PO QHS PRN PRN Reason: INSOMNIA Last Admin: 01/13/20 21:19 Dose: 100 mg Documented by: Warfarin Sodium (Warfarin 5 Mg Tablet) 5 mg PO DAILY@1700 [facility] Last Admin: 01/13/20 17:20 Dose: 5 mg Documented by: Discharge Activity: May not drive while taking narcotic pain medications. Home Medications: Medications to take at Discharge Carvedilol [Coreg (Beta Brock)] 3.125 mg PO BID 08/18/17 Donepezil HCl [Aricept] 10 mg PO QHS 08/18/17 Ferrous Sulfate 325 mg PO DAILY 08/18/17 Finasteride [Proscar] 5 mg PO DAILY 08/18/17 Omeprazole 40 mg PO DAILY 08/18/17 oxybutynin chloride 5 mg tablet 5 mg PO TID tab 11/29/18 Folic Acid 1 mg PO DAILY 05/26/19 Sennosides/Docusate Sodium [Senexon-S 50-8.6 mg Tablet] 1 ea PO BID 05/26/19 paroxetine HCl 10 mg tablet 10 mg PO DAILY 07/24/19 paroxetine HCl 40 mg tablet 40 mg PO DAILY tab 07/24/19 pramipexole 0.5 mg tablet 0.5 mg PO QHS 07/24/19 acamprosate 333 mg tablet,delayed release 2 tablet PO TID tab 12/06/19 fluticasone 113 mcg-salmeterol 14 mcg/actuation breath activated powdr 2 puff INHALATION BID 12/06/19 hydroxyzine HCl 25 mg tablet 25 mg PO TID PRN PRN 12/06/19 tiotropium bromide 18 mcg capsule with inhalation device 1 cap INHALATION DAILY 12/24/19 Ascorbic Acid [C-500] 1,000 mg PO BID 01/12/20 Atorvastatin Calcium [Lipitor] 20 mg PO QHS 01/12/20 Enoxaparin [Lovenox] 60 mg SC Q12@0600,1800 01/12/20 Furosemide 60 mg PO DAILY 01/12/20 Lisinopril [Prinivil] 10 mg PO DAILY 01/12/20 Multivitamin/Iron/Folic Acid [Centrum Adults Tablet] 1 ea PO DAILY 01/12/20 Nystatin 500,000U/5ML [Mycostatin] 5 ml PO 4X/DAY 01/12/20 Pregabalin 100 mg PO BID 01/12/20 Thiamine Hydrochloride [Vitamin B1] 100 mg PO DAILY 01/12/20 Trazodone HCl 2 tab PO QHS 01/12/20 Warfarin [Coumadin] 5 mg PO DAILY 01/12/20 Folic Acid 1 mg PO DAILY@0800 #60 tab 01/14/20 Magnesium Oxide 400 mg PO BID #60 tab 01/14/20 Potassium Chloride [K-Dur] 40 meq PO BIDCM #60 tab 01/14/20 Sodium Chloride 1 gm PO BID #60 tab 01/14/20 Thiamine Hydrochloride [Vitamin B1] 100 mg PO DAILYCM #90 tab 01/14/20 Following Prescriptions Were Given to Patient: Folic Acid 1 mg PO DAILY@0800 #60 tab Transmission Status: Pending to [place] [id number] Potassium Chloride [K-Dur] 40 meq PO BIDCM #60 tab Transmission Status: Pending to [place] [id number] Magnesium Oxide 400 mg PO BID #60 tab Transmission Status: Pending to [place] [address] Sodium Chloride 1 gm PO BID #60 tab Transmission Status: Pending to [place] [address] Thiamine Hydrochloride [Vitamin B1] 100 mg PO DAILYCM #90 tab Transmission Status: Pending to [place] [address] Primary Care Physician: Josue Cifuentes MD [Primary Care Provider] - Please follow up with your Primary Care Physician in: in 1 week Disposition: Home Minutes spent on discharge:: 35 Patient Condition:: Stable Medical Necessity - Tobacco Use Smoking Status: Current every day smoker Tobacco Use: Cigarettes Meaningful Use Info Meaningful Use Diagnoses (Choose all that apply): None applicable Inpatient E&M: 17541 [facility]
== END 2020-01-14 16:26 | disposition home or self-care (01) | DRG 897 ==
LOC: ED 17:10 → MS3 18:38
PROVIDERS: Internal Medicine; Admitting Provider Hospitalist; Emergency Provider Emergency Medicine; PCP Family Medicine; Visit Provider Internal Medicine
DX: F10.229 Alcohol dependence with intoxication, unspecified (principal); E87.1 Hypo-osmolality and hyponatremia; F10.239 Alcohol dependence with withdrawal, unspecified; I48.0 Paroxysmal atrial fibrillation; J44.9 Chronic obstructive pulmonary disease, unspecified; I10 Essential (primary) hypertension; E87.6 Hypokalemia; E78.5 Hyperlipidemia, unspecified; F17.210 Nicotine dependence, cigarettes, uncomplicated; K29.20 Alcoholic gastritis without bleeding; E83.42 Hypomagnesemia; Z95.2 Presence of prosthetic heart valve; Z95.0 Presence of cardiac pacemaker; Y90.5 Blood alcohol level of 100-119 mg/100 ml; Z91.14 Patient's other noncompliance with medication regimen; Z79.01 Long term (current) use of anticoagulants; Z79.02 Long term (current) use of antithrombotics/antiplatelets; Z79.899 Other long term (current) drug therapy; Z68.20 Body mass index [BMI] 20.0-20.9, adult
CPT/HCPCS: 36415; 71045; 74176; 80048; 80053; 80320; 81001; 81002; 83690; 83735; 84484; 85025; 85610; 87040; 87086; 87635; 93005; 94640; 97802; 99281; 99285; 99406; J7030; J7050; A4216; G0480; J2405; U0003

== ENCOUNTER → 2020-02-07 | Outpatient (CLI) | payer MEDICARE, MEDICAID, SELFPAY ==
[2020-01-14 10:51] VITALS: BMI 20.9
[2020-02-07 15:42] LABS: International Normalized Ratio 1.3; Prothrombin Time (Protime)PT. 15.6 SECONDS (11.7-14.9)
== END | disposition home or self-care (01) ==
LOC: LABSPEC 15:20
PROVIDERS: PCP Family Medicine; Referring Provider Family Medicine; Visit Provider Family Medicine
DX: Z95.2 Presence of prosthetic heart valve (principal)
CPT/HCPCS: 85610

== ENCOUNTER → 2020-02-10 | Outpatient (CLI) | payer MEDICARE, MEDICAID, SELFPAY ==
[2020-01-14 10:51] VITALS: BMI 20.9
[2020-02-10 15:48] LABS: International Normalized Ratio 1.5; Prothrombin Time (Protime)PT. 17.5 SECONDS (11.7-14.9)
== END | disposition home or self-care (01) ==
LOC: LABSPEC 15:22
PROVIDERS: PCP Family Medicine; Visit Provider Family Medicine
DX: Z95.2 Presence of prosthetic heart valve (principal)
CPT/HCPCS: 85610

== ENCOUNTER → 2020-02-13 15:13 | Outpatient (CLI) | payer MEDICARE, MEDICAID, SELFPAY ==
[2020-01-14 10:51] VITALS: BMI 20.9
[2020-02-13 15:52] LABS: International Normalized Ratio 1.6; Prothrombin Time (Protime)PT. 18.6 SECONDS (11.7-14.9)
== END ==
PROVIDERS: PCP Family Medicine; Referring Provider Family Medicine; Visit Provider Family Medicine
DX: Z95.2 Presence of prosthetic heart valve (principal)
CPT/HCPCS: 85610

== ENCOUNTER → 2020-02-25 | Outpatient (CLI) | payer MEDICARE, MEDICAID, SELFPAY ==
[2020-02-25 12:59] LABS: International Normalized Ratio 3.2; Prothrombin Time (Protime)PT. 32.3 SECONDS (11.7-14.9)
== END | disposition home or self-care (01) ==
LOC: LABSPEC 12:33
PROVIDERS: PCP Family Medicine; Visit Provider Family Medicine
DX: Z95.2 Presence of prosthetic heart valve (principal)
CPT/HCPCS: 85610

== ENCOUNTER → 2020-03-10 | Outpatient (CLI) | payer MEDICARE, MEDICAID, SELFPAY ==
[2020-03-10 17:21] LABS: International Normalized Ratio 5.1
[2020-03-10 17:28] LABS: Prothrombin Time (Protime)PT. 47.3 SECONDS (11.7-14.9)
== END | disposition home or self-care (01) ==
LOC: LABSPEC 16:56
PROVIDERS: PCP Family Medicine; Visit Provider Family Medicine
DX: Z95.2 Presence of prosthetic heart valve (principal)
CPT/HCPCS: 85610

== ENCOUNTER 2020-05-13 15:12 | Inpatient (IN) | payer MEDICARE, MEDICAID, SELFPAY ==
[2020-05-13 15:13] VITALS: BP 142/89; PULSE 101; RESP 18; TEMP 36.4; O2SAT 99; BMI 21.7
--- NOTE | 2020-05-13 15:27 | EKG12_ITS ---
Test Reason : Blood Pressure : / mmHG Vent. Rate : 089 BPM Atrial Rate : 089 BPM P-R Int : 170 ms QRS Dur : 132 ms QT Int : 394 ms P-R-T Axes : 052 054 -29 degrees QTc Int : 479 ms Atrial-sensed ventricular-paced rhythm Abnormal ECG Confirmed by MERLINE CORBETT, JALEEL ([id number]), greeting card editor JONNATHAN MERCEDES ([id number]) on 05/18/2020 10:43:41 AM Referred By: ZAIN Confirmed By:JALEEL RICK MD
--- NOTE | 2020-05-13 15:28 | ED.VIS.GEN ---
History of Present Illness Chief Complaint: Substance Abuse Informant: Patient Onset: - - Presents for alcohol detox Timing: Continuous Quality: Patient is an alcoholic. He admits to drinking 10 beers per day Location: Home Current Severity: Mild Maximum Severity: Moderate Worsened by: When he decreases his alcohol intake Relieved by: Drinking alcohol Associated Symptoms: Abdominal pain Narrative: Patient is a 60-year-old male with history of alcoholism. He states he started drinking at the age of 10. He was in a detox program 6 months ago. He was alcohol free until the when he began to drink again. He lives alone. He is on Lovenox because he has a prosthetic mitral valve. He was on Coumadin. There was difficulty regulating his INR and reason he was placed on Lovenox. He also has a pacemaker/AICD. He does report bruising easily. He denies black or maroon stool. He denies blood in his urine. He denies bleeding from his gums. He denies bleeding from his nose. There is no history of trauma. He denies headache. He denies visual, ocular auditory symptoms. He denies shortness of breath. He has a chronic cough. He smokes 1 pack/day. He does have history of alcoholic cirrhosis. He denies paresthesia or anesthesia. Prior similar symptoms: Yes Recent Illness/Hospitalization: No - Past Medical History (1) Alcohol dependence Status: Chronic (2) Essential hypertension Status: Chronic (3) H/O mitral valve replacement with mechanical valve Status: Chronic Comment: 27mm mechanical St. Sharan Mitral Valve prosthesis (4) Nonrheumatic aortic (valve) insufficiency Status: Chronic (5) Hyperlipidemia Status: Chronic (6) Presence of permanent cardiac pacemaker Status: Chronic (7) Paroxysmal atrial fibrillation Status: Chronic Past Medical History - Allergies and Home Meds Allergies/Adverse Reactions: Allergies ibuprofen Adverse Reaction (Verified 05/13/20 15:17) Upset Stomach metronidazole Adverse Reaction (Verified 05/13/20 15:17) Upset Stomach naproxen [From Aleve] Adverse Reaction (Verified 05/13/20 15:17) gi upset Primary Care Physician: Josue Cifuentes MD [Primary Care Provider] - Prior records reviewed: Yes Surgical History: - - mechanical mitral valve neck surgery, back surgery, right hip pinned. Lives: Alone Smoking Status: Current every day smoker Alcohol: Heavy Drugs: Marijuana - Family History Paternal Family History: Family History (Last Reviewed 01/11/20 @ 18:[address] Mike Cardona MD) Mother Heart disease Father Heart disease CVA (cerebral vascular accident) Brother Heart disease Diabetes Sister Heart disease Family History: Reports: - Maternal Family History: Family History (Last Reviewed 01/11/20 @ 18:[address] Mike Cardona MD) Mother Heart disease Father Heart disease CVA (cerebral vascular accident) Brother Heart disease Diabetes Sister Heart disease Family History: Reports: Unknown Sibling Family History: Family History (Last Reviewed 01/11/20 @ 18:[address] Mike Cardona MD) Mother Heart disease Father Heart disease CVA (cerebral vascular accident) Brother Heart disease Diabetes Sister Heart disease Family History: Reports: No pertinent history Review of Systems General: Reports: Malaise. Denies: Chills, Fever Eyes: Denies: Visual changes - bilaterally, Blurred Vision - bilaterally ENT: Denies: Bilateral ear pain, Left ear pain Cardiovascular: Denies: Chest pain, Palpitations Respiratory: Reports: Cough. Denies: Dyspnea, Sputum, Dyspnea on exertion, Orthopnea, Paroxysmal nocturnal dyspnea, -, - Gastrointestinal: Reports: Abdominal pain. Denies: Nausea, Vomiting, Diarrhea, Constipation, Melena, Hematochezia, -, - Genitourinary: Denies: Dysuria, Hematuria, Frequency Musculoskeletal: Denies: Myalgias, Arthralgias Skin: Denies: Rash, Wounds Neurological: Denies: Headache, Weakness, Parasthesia Psych: Reports: Depression, Anxiety. Denies: Suicidal thoughts Hematologic: Reports: Easy bruising Allergy: Denies: Uticaria Physical Exam Vital Signs/Narrative: Vital Signs Temp Pulse Resp BP Pulse Ox 05/13/20 15:13 97.6 F L 101 H 18 142/89 H 99 Inital Vital Signs reviewed: Yes General: Well developed, No Acute Distress Head: Normocephalic, Atraumatic Eyes: Perrl, EOMI. Negative for: Pale conjunctiva, Scleral icterus ENT: Moist mucous membranes, No rhinorrhea, TM's clear Neck: Supple, Nontender, No lymphadenopathy, No JVD Cardiovascular: Tachycardia, - - Prominent S2 with a click consistent with a prosthetic valve. Respiratory: No distress, CTA bilaterally, Chest nontender Abdomen: Soft, Nondistended, No masses, Tender - Over areas of bruising due to Lovenox., Hypoactive bowel sounds. Negative for: Nontender, Normal bowel sounds, Hepatomegaly, Splenomegaly, Mass, Pulsatile mass Rectal: Deferred Back: Nontender, Normal Inspection. Negative for: CVA tenderness Extremities: Nontender Skin: Normal color, Trauma Neurological: Alert, Oriented x3, Cranial nerves II-XII grossly intact, Normal Strength, Normal Sensation, Normal DTR - No hyperreflexia. He has no clonus., Normal Gait Psychological: Depressed Diagnostic/Tx/Re-eval Laboratory Results 05/13/20 05/13/20 15:55 15:55 WBC 7.4 RBC 4.69 Hgb 15.9 Hct 45.6 MCV 97.2 H MCH 33.9 H MCHC 34.9 RDW Std Deviation 56.3 H RDW Coeff of Harjeet 15.9 H Plt Count 203 MPV 9.9 Immature Gran % (Auto) 0.300 Neut % (Auto) 76.1 H Lymph % (Auto) 14.0 L [place] % (Auto) 7.7 Eos % (Auto) 1.5 Baso % (Auto) 0.4 Absolute Neuts (auto) 5.6 Absolute Lymphs (auto) 1.03 Nucleated RBC % 0 Sodium 133 L Potassium 3.1 L Chloride 98 Carbon Dioxide 30.0 Anion Gap 5 BUN 7 Creatinine 0.94 Estim Creat Clear Calc 64.31 Est GFR (MDRD) Af Amer 104 Est GFR (MDRD) Non-Af 86 BUN/Creatinine Ratio 7.4 L Glucose 103 Calcium 9.2 Total Bilirubin 1.00 AST 55 H ALT 29 Alkaline Phosphatase 68 Total Protein 8.4 H Albumin 4.0 Globulin 4.4 H Albumin/Globulin Ratio 0.9 Sodium is 3.1 which is mildly depressed. Patient is not anemic. Platelet count is acceptable. Alcohol level is pending. Will page hospitalist for admission for alcohol abuse and detox. - EKG Initial EKG Interpretation: - - Atrial sensed ventricular paced rhythm with a ventricular rate of 89. GA interval is 170 ms. QRS duration 132 ms. QT duration 394 ms. Patient has flipped T waves inferior leads. Nonspecific changes in lead be 5 and 6. J-point elevation in the precordial leads. - Medical Decision Making Sent with symptoms of alcohol withdrawal. He received Ativan, brass pickler for his burning abdominal pain he received a dose of Maalox and viscous Xylocaine. Blood work was obtained. Will contact hospitalist for admission for alcohol abuse ED Disposition - Plan for ED Patient: Disposition: Acute Care Hospital 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
[2020-05-13 15:33] VITALS: BP 142/89; PULSE 96; RESP 18; TEMP 36.4; O2SAT 98
[2020-05-13] MEDS: Mag Hydrox/Al Hydrox/Simeth 30 ML UDC PO (15:57)
[2020-05-13] MEDS: LORazepam 2 MG/ML Syringe 1 MG IV (15:57)
[2020-05-13 16:26] LABS: Absolute Lymphocyte Count 1.03 X10^3/uL (0.83-4.51); Absolute Neutrophil Count 5.6 X10^3/uL (2.0-7.7); Basophil# 0.03 X10^3/uL; Basophil% 0.4 % (0-1); Eosinophil# 0.11 X10^3/uL; Eosinophils% 1.5 % (0-5); Hematocrit 45.6 % (40-54); Hemoglobin 15.9 g/dL (13.0-16.5); Lymphocyte # 1.03 X10^3/ul (4.0); Mean Corp Hgb Conc 34.9 g/dL (32-36); Mean Corpuscular Hgb 33.9 pg (27.0-32.0); Mean Corpuscular Volume 97.2 fL (80-94); Mean Platelet Vol. 9.9 fl (6.2-12.0); Monocyte# 0.57 X10^3/uL; Monocyte% 7.7 % (0-10); NRBC Flagged by Analyzer 0 % (0-5); Neutrophil % 76.1 % (47-70); Platelet Count 203 K/mm3 (150-450); RBC Distribution Width CV 15.9 % (11.6-14.6); RBC Distribution Width SD 56.3 fl (35.1-43.9); Red Blood Count 4.69 M/mm3 (4.6-6.2); White Blood Count 7.4 K/mm3 (4.4-11.0)
[2020-05-13 16:46] LABS: ALB/GLOB Ratio 0.9 RATIO (0.9-2.4); AST(SGOT) 55 U/L (15-37); Alanine Aminotransfer ALT/SGPT 29 U/L (16-61); Alkaline Phosphatase 68 U/L (45-117); Anion Gap 5 (5-15); BUN 7 mg/dL (7-18); BUN/Creat Ratio 7.4 RATIO (10-20); Calcium,Total 9.2 mg/dL (8.5-10.1); Chloride 98 mmol/L (98-107); Creatinine, Serum 0.94 mg/dL (0.70-1.30); EST Glomerular Filtration Rate 86 mL/min (>60); Est Glom Filt Rate - Afr Amer 104 mL/min (>60); Estimated Creatinine Clearance 64.31 ml/min; Globulin 4.4 g/dL (2.2-4.2); Glucose 103 mg/dL (74-106); Potassium 3.1 mmol/L (3.5-5.1); Protein, Total 8.4 g/dL (6.4-8.2); Sodium Level 133 mmol/L (136-145)
--- NOTE | 2020-05-13 17:04 | PCM.HP.STD ---
History of Present Illness Date of Admission: 05/13/20 Chief Complaint: Alcohol detox The patient is a 60 year old M with PMH as below who presents to the hospital requesting alcohol detox. He drinks about 10 beers a day and had been sober about 6 months until Jessica time when he started drinking. He does have a history of bioprosthetic mitral valve and had difficulty maintaining his INR on Coumadin that was transitioned to therapeutic Lovenox, he has been stable on this regimen. He does also have a history of alcoholic cirrhosis, and on admission his AST was elevated to 55. Past Medical History Past Medical History (Chronic Problems): Chronic Problems (Last Reviewed 01/11/20 @ 18:[address] Mike Cardona MD) Alcohol dependence (Chronic) Essential hypertension (Chronic) Alcohol abuse (Chronic) H/O mitral valve replacement with mechanical valve (Chronic ~2009) 27mm mechanical [employer] Sharan Mitral Valve prosthesis Nonrheumatic aortic (valve) insufficiency (Chronic) Hyperlipidemia (Chronic) Presence of permanent cardiac pacemaker (Chronic) Paroxysmal atrial fibrillation (Chronic) Medical History: Medical History (Last Reviewed 01/11/20 @ 18:[address] Mike Cardona MD) Essential hypertension (Chronic) I10 Nonrheumatic aortic (valve) insufficiency (Chronic) I35.1 Hyperlipidemia (Chronic) E78.5 Presence of permanent cardiac pacemaker (Chronic) Z95.0 Paroxysmal atrial fibrillation (Chronic) I48.0 Dementia F03.90 Alcoholic cirrhosis K70.30 Alcoholism /alcohol abuse F10.20 BPH (benign prostatic hyperplasia) N40.0 COPD (chronic obstructive pulmonary disease) J44.9 Depression F32.9 History of GI bleed Z87.19 HTN (hypertension) (Inactive) I10 Allergies ibuprofen Adverse Reaction (Verified 05/13/20 15:17) Upset Stomach metronidazole Adverse Reaction (Verified 05/13/20 15:17) Upset Stomach naproxen [From Aleve] Adverse Reaction (Verified 05/13/20 15:17) gi upset Home Medications: Ambulatory Orders Medication Instructions Recorded Carvedilol [Coreg (Beta Brock)] 3.125 mg PO BID 08/18/17 Donepezil HCl [Aricept] 10 mg PO QHS 08/18/17 Ferrous Sulfate 325 mg PO DAILY 08/18/17 Finasteride [Proscar] 5 mg PO DAILY 08/18/17 oxybutynin chloride 5 mg tablet 5 mg PO TID tab 11/29/18 paroxetine HCl 10 mg tablet 10 mg PO QHS 07/24/19 paroxetine HCl 40 mg tablet 40 mg PO QHS tab 07/24/19 pramipexole 0.5 mg tablet 0.5 mg PO QHS 07/24/19 acamprosate 333 mg tablet,delayed 2 tablet PO TID tab 12/06/19 release hydroxyzine HCl 25 mg tablet 25 mg PO TID PRN PRN 12/06/19 tiotropium bromide 18 mcg capsule 1 cap INHALATION DAILY 12/24/19 with inhalation device Ascorbic Acid [C-500] 1,000 mg PO BID 01/12/20 Atorvastatin Calcium [Lipitor] 20 mg PO QHS 01/12/20 Enoxaparin [Lovenox] 60 mg SC Q12@0600,1800 01/12/20 Furosemide 40 mg PO DAILY 01/12/20 Multivitamin/Iron/Folic Acid 1 tab PO DAILY 01/12/20 [Centrum Adults Tablet] Warfarin [Coumadin] 5 mg PO DAILY 01/12/20 Folic Acid 1 mg PO DAILY@0800 #60 tab 01/14/20 Thiamine Hydrochloride [Vitamin B1] 100 mg PO DAILYCM #90 tab 01/14/20 Docusate Sodium [Dok] 100 mg PO BID 05/13/20 Furosemide [Lasix] 20 mg PO DAILY 05/13/20 Lisinopril [Prinivil] 10 mg PO DAILY 05/13/20 Omeprazole 40 mg PO DAILY 05/13/20 Trazodone HCl 300 mg PO QHS 05/13/20 Surgical History: Surgical History (Last Reviewed 01/11/20 @ 18:[address] Mike Cardona MD) H/O mitral valve replacement with mechanical valve (Chronic) Onset Date: ~[address] Sharan Mitral Valve prosthesis History of arthroscopy of left shoulder Z98.890 History of cholecystectomy Z98.890, Z90.49 History of hernia repair Z98.890, Z87.19 History of sinus surgery Z98.890 Status post mitral valve replacement Onset Date: ~[address] Sharan Mitral Valve prosthesis Surgical History: - - mechanical mitral valve neck surgery, back surgery, right hip pinned. Psychiatric History: Anxiety Lives: Alone Smoking Status: Current every day smoker Alcohol: Heavy Drugs: Marijuana - *Family History Maternal Family History: Family History (Last Reviewed 01/11/20 @ 18:[address] Mike Cardona MD) Mother Heart disease Father Heart disease CVA (cerebral vascular accident) Brother Heart disease Diabetes Sister Heart disease History Items: Cancer Paternal Family History: Family History (Last Reviewed 01/11/20 @ 18:[address] Mike Cardona MD) Mother Heart disease Father Heart disease CVA (cerebral vascular accident) Brother Heart disease Diabetes Sister Heart disease History Items: - Sibling Family History: Family History (Last Reviewed 01/11/20 @ 18:[address] Mike Cardona MD) Mother Heart disease Father Heart disease CVA (cerebral vascular accident) Brother Heart disease Diabetes Sister Heart disease History Items: No pertinent history Review of Systems Constitutional: Denies: Chills, Fever, Weight Change HEENT: Denies: Head Aches, Sinus Congestion, Sinus Drainage Cardiovascular: Denies: Chest Pain, Palpitations Respiratory: Denies: Cough, Shortness of breath at rest, Sputum production Gastrointestinal: Denies: Abdominal Pain, Nausea, Vomiting Genitourinary: Denies: Dysuria Musculoskeletal: Reports: Neck Pain. Denies: Joint Pain, Joint Tenderness Skin: Denies: Rash, Wounds Neurological: Denies: Numbness, Tingling, Focal weakness Psychiatric: Reports: Anxiety, Depression. Denies: Homicidal Ideations, Suicidal Ideations Hematologic/ Lymphatic: Denies: Easy Bruising, Easy Bleeding VTE Information - Inpt Only VTE Present on Admission: No Patient Problems: Active and Suspected Problems (Last Reviewed 01/11/20 @ 18:[address] Mike Cardona MD) Alcohol dependence with acute alcoholic intoxication (Acute) detention current use of anticoagulant (Acute) History of prosthetic mitral valve (Acute) - Physical Exam Vitals/I&O's: Vital Signs Temp Pulse Resp BP Pulse Ox 97.6 F L 96 18 142/89 H 98 05/13/20 15:33 05/13/20 15:33 05/13/20 15:33 05/13/20 15:33 05/13/20 15:33 Oxygen Delivery Method Room Air Weight: 123 lb 0.287 oz Body Mass Index (BMI) 21.7 Finger Stick Blood Glucose 109 General: Alert, Oriented x3, Cooperative, No apparent distress HEENT: Atraumatic, PERRLA, EOMI, Normocephalic Oral: Moist Mucosa Neck: Supple, No JVD Lungs: Normal air movement, No rhonchi, No wheeze, No rales, Diminished Cardiovascular: Regular rate, Regular Rhythm, Normal S1, Normal S2, No murmurs Abdomen: Soft, Non-Distended, No Hepato-splenomegaly, Tender - In areas where he has bruising from his Lovenox injections, - - Ecchymosis on his abdomen from his Lovenox injection Extremities: No edema, Capillary Refill Less than 3 Seconds Skin: No rashes, No breakdown Neurological: Neuro grossly intact, Sensory exam intact to light touch and pain Psych/Mental Status: Anxious, Flat Affect Laboratory Results 05/13/20 15:55: WBC 7.4, RBC 4.69, Hgb 15.9, Hct 45.6, MCV 97.2 H, MCH 33.9 H, MCHC 34.9, RDW Std Deviation 56.3 H, RDW Coeff of Harjeet 15.9 H, Plt Count 203, MPV 9.9, Immature Gran % (Auto) 0.300, Neut % (Auto) 76.1 H, Lymph % (Auto) 14.0 L, [place] % (Auto) 7.7, Eos % (Auto) 1.5, Baso % (Auto) 0.4, Absolute Neuts (auto) 5.6, Absolute Lymphs (auto) 1.03, Nucleated RBC % 0 05/13/20 15:55: Sodium 133 L, Potassium 3.1 L, Chloride 98, Carbon Dioxide 30.0, Anion Gap 5, BUN 7, Creatinine 0.94, Estim Creat Clear Calc 64.31, Est GFR (MDRD) Af Amer 104, Est GFR (MDRD) Non-Af 86, BUN/Creatinine Ratio 7.4 L, Glucose 103, Calcium 9.2, Total Bilirubin 1.00, AST 55 H, ALT 29, Alkaline Phosphatase 68, Total Protein 8.4 H, Albumin 4.0, Globulin 4.4 H, Albumin/Globulin Ratio 0.9 05/13/20 15:55: Ethyl Alcohol Pending 05/13/20 16:50: Urine Opiates Screen Pending, Urine Methadone Screen Pending, Ur Barbiturates Screen Pending, Ur Phencyclidine Scrn Pending, Ur Amphetamines Screen Pending, U Methamphetamin-MDMA Pending, U Benzodiazepines Scrn Pending, Urine Cocaine Screen Pending, U Cannabinoids Screen Pending, Ur Drug Screen Comment Assessment/Plan All Active Problems (Last Reviewed 01/11/20 @ 18:[address] Mike Cardona MD) Alcohol dependence with acute alcoholic intoxication (Acute) detention current use of anticoagulant (Acute) History of prosthetic mitral valve (Acute) Hypokalemia (Acute) Abdominal pain (Acute) Abdominal pain (Acute) Acute alcohol withdrawal (Acute) 1. Acute alcohol detox/alcoholic cirrhosis/anxiety/depression -Drinks 10 beers a day and would like to get help -Continue with the alcohol withdrawal protocol -Follow-up as an outpatient with 180 for rehab -We will continue with his Paxil and trazodone 2. History of mitral valve repair/paroxysmal A. fib/HTN/HLD -We will continue with his therapeutic Lovenox -Pressure stable, continue with Coreg, Lasix, lisinopril -Continue with Lipitor 3. GERD -Stable -Continue with PPI 4. BPH -Stable -Continue with finasteride DVT: Therapeutic Lovenox Inpatient E&M: 80094 Init Hosp L3
[2020-05-13 17:13] VITALS: BMI 21.8
--- NOTE | 2020-05-13 17:15 | NURSING ---
MED SURG ETOH DETOX BRANDON
--- NOTE | 2020-05-13 17:26 | CM.ED ---
Social Work Consult: Substance Abuse Informant: Self referral Met with patient in room. Introduced self and social media strategist role. Patient reports daily abuse of alcohol around 10 a day. Patient seeking medical management of withdrawal symptoms, [facility] program. Patient verbally agreeing to [facility] contract. Active support and listening provided. Patient unsure of follow-up plan. Telephone call to [facility]. Marleen updated on patient being admitted. PLAN: Admit to [facility] program. Mariama JARA, PATRIC
[2020-05-13 17:28] LABS: Amphetamine Urine VISTA NEGATIVE (<1000 ng/mL); Barbiturate Urine VISTA NEGATIVE (< 200 ng/mL); Benzodiazepine Urine VISTA NEGATIVE (< 200 ng/mL); Cocaine Urine VISTA NEGATIVE (< 300 ng/mL); Ecstacy Urine VISTA POSITIVE (< 500 ng/mL); Methadone Urine VISTA NEGATIVE (< 300 ng/mL); PCP Urine VISTA NEGATIVE (< 25 ng/mL); THC Urine VISTA POSITIVE (< 50 ng/mL); Vista UDS pH Range 6
[2020-05-13 17:40] VITALS: BP 140/80; PULSE 105; RESP 18; TEMP 36.6; O2SAT 96
[2020-05-13 17:53] VITALS: BMI 20.9
[2020-05-13 17:57] VITALS: BP 146/87; PULSE 80; RESP 16; TEMP 37.1; O2SAT 95
[2020-05-13] MEDS: Phenobarbital 32.4 MG Tablet 64.8 MG PO ×2 (18:18→21:18)
[2020-05-13] MEDS: Thiamine Hydrochloride 100 MG Tablet PO (18:18)
[2020-05-13] MEDS: Folic Acid 1 MG Tablet PO (18:18)
[2020-05-13] MEDS: Dicyclomine 10 MG Capsule 20 MG PO (18:18)
[2020-05-13 21:11] VITALS: BP 137/76; PULSE 86; RESP 18; TEMP 36.7; O2SAT 96
[2020-05-13] MEDS: Potassium Chloride Oral Tablet 20 MEQ 60 MEQ PO (21:18)
[2020-05-13] MEDS: Gabapentin 300 MG Capsule PO (21:18)
[2020-05-13] MEDS: Paroxetine 20 MG Tablet 40 MG PO (21:19)
[2020-05-13] MEDS: Ascorbic Acid 500 MG Tablet 1000 MG PO (21:20)
[2020-05-13] MEDS: PARoxetine 10 MG Tablet PO (21:20)
[2020-05-13] MEDS: Donepezil HCl 10 MG Tablet PO (21:21)
[2020-05-13] MEDS: Atorvastatin Calcium 20 MG Tablet PO (21:21)
[2020-05-13] MEDS: Oxybutynin 5 MG Tablet PO (21:21)
[2020-05-13] MEDS: Carvedilol 3.125 MG TABLET PO (21:21)
[2020-05-13] MEDS: Docusate Sodium 100 MG Capsule PO (21:21)
[2020-05-13] MEDS: traZODone 100 MG Tablet 300 MG PO (21:22)
[2020-05-13] MEDS: Pramipexole Di-HCl 0.5 MG Tablet PO (21:22)
[2020-05-14 01:55] VITALS: BP 122/79; PULSE 65; RESP 16; TEMP 36.8; O2SAT 94
[2020-05-14] MEDS: Ondansetron 8 MG Tablet PO ×2 (02:03→16:22)
[2020-05-14] MEDS: Dicyclomine 10 MG Capsule 20 MG PO ×3 (02:03→16:22)
[2020-05-14] MEDS: hydrOXYzine PAM 25 MG Capsule 50 MG PO ×4 (02:03→16:22)
[2020-05-14] MEDS: Phenobarbital 32.4 MG Tablet 64.8 MG PO ×6 (02:03→21:21)
[2020-05-14 05:13] VITALS: BP 137/84; PULSE 63; RESP 16; TEMP 36.8; O2SAT 94
[2020-05-14] MEDS: Oxybutynin 5 MG Tablet PO ×3 (05:16→21:22)
[2020-05-14] MEDS: Enoxaparin 60 MG/0.6 ML Syringe SC ×2 (05:16→18:18)
[2020-05-14] MEDS: 0.9% Saline Lock 10 ML Syringe IV (05:19)
[2020-05-14 06:53] LABS: Absolute Lymphocyte Count 1.45 X10^3/uL (0.83-4.51); Basophil# 0.04 X10^3/uL; Basophil% 0.6 % (0-1); Eosinophil# 0.33 X10^3/uL; Eosinophils% 5.2 % (0-5); Hematocrit 37.2 % (40-54); Hemoglobin 12.8 g/dL (13.0-16.5); Lymphocyte # 1.45 X10^3/ul (4.0); Lymphocyte % 22.8 % (19-41); Mean Corp Hgb Conc 34.4 g/dL (32-36); Mean Corpuscular Hgb 33.2 pg (27.0-32.0); Mean Corpuscular Volume 96.6 fL (80-94); Mean Platelet Vol. 9.4 fl (6.2-12.0); Monocyte# 0.59 X10^3/uL; Monocyte% 9.3 % (0-10); NRBC Flagged by Analyzer 0 % (0-5); Neutrophil # 3.95 X10^3/uL (2.7-7.7); Neutrophil % 61.9 % (47-70); Platelet Count 144 K/mm3 (150-450); RBC Distribution Width CV 15.8 % (11.6-14.6); Red Blood Count 3.85 M/mm3 (4.6-6.2); White Blood Count 6.4 K/mm3 (4.4-11.0)
[2020-05-14 07:20] LABS: Anion Gap 6 (5-15); BUN 7 mg/dL (7-18); BUN/Creat Ratio 11.6 RATIO (10-20); Calcium,Total 8.2 mg/dL (8.5-10.1); Chloride 97 mmol/L (98-107); EST Glomerular Filtration Rate 144 mL/min (>60); Est Glom Filt Rate - Afr Amer 174 mL/min (>60); Estimated Creatinine Clearance 96.64 ml/min; Glucose 83 mg/dL (74-106); Magnesium 1.9 mg/dL (1.6-2.6); Potassium 3.9 mmol/L (3.5-5.1); Sodium Level 129 mmol/L (136-145)
[2020-05-14 08:24] VITALS: BP 128/78; PULSE 74; RESP 16; TEMP 36.8; O2SAT 94
[2020-05-14] MEDS: Finasteride 5 MG Tablet PO (08:26)
[2020-05-14] MEDS: Ascorbic Acid 500 MG Tablet 1000 MG PO ×2 (08:26→21:22)
[2020-05-14] MEDS: Folic Acid 1 MG Tablet PO (08:26)
[2020-05-14] MEDS: Carvedilol 3.125 MG TABLET PO ×2 (08:26→21:23)
[2020-05-14] MEDS: Lisinopril 10 MG Tablet PO (08:26)
[2020-05-14] MEDS: Furosemide 20 MG Tablet PO (08:27)
[2020-05-14] MEDS: Thiamine Hydrochloride 100 MG Tablet PO (08:27)
[2020-05-14] MEDS: Pantoprazole Sodium 40 MG Tablet PO (08:27)
[2020-05-14] MEDS: Furosemide 40 MG Tablet PO (08:27)
[2020-05-14] MEDS: Ferrous Sulfate 325 MG Tablet PO (08:27)
--- NOTE | 2020-05-14 09:00 | PCM.PROGNOTE ---
Patient Problems: Active and Suspected Problems (Last Reviewed 01/11/20 @ 18:[address] Mike Cardona MD) Alcohol dependence with acute alcoholic intoxication (Acute) Subjective: Chief complaint: Follow-up after admission for acute alcohol intoxication/withdrawal for medical stabilization. Patient seen and examined. No acute events overnight. Morning, he complained of back pain, neck pain and shoulder pain. Those pains are chronic. He mentioned that he could not sleep last night. His vital signs are stable. - Physical Exam Vitals/I&O's: Vital Signs Temp Pulse Resp BP Pulse Ox 98.3 F 74 16 128/78 H 94 05/14/20 08:24 05/14/20 08:24 05/14/20 08:24 05/14/20 08:24 05/14/20 08:24 Oxygen Delivery Method Room Air Weight: 118 lb Body Mass Index (BMI) 20.9 Finger Stick Blood Glucose 109 Intake and Output for Last 24 Hours 05/12/20 05/13/20 05/14/20 23:59 23:59 23:59 Intake Total 300 / 1200 1700 / 1700 Output Total 500 / 500 Balance 300 / 700 1200 / 1200 General: Alert, Oriented x3, Cooperative, No apparent distress HEENT: Atraumatic, PERRLA, EOMI, Normocephalic Oral: Moist Mucosa, No Gingival or Mucosal Lesions/ Ulcerations Neck: Supple, No JVD, Negative Carotid Bruits, Trachea Midline, Thyroid Normal Size and Texture Lungs: Clear to auscultation, No rhonchi, No wheeze, No rales, Diminished Cardiovascular: Regular rate, Regular Rhythm, Normal S1, Normal S2, PMI Normal Abdomen: Bowel Sounds Present, Soft, Non Tender, Non-Distended, No Hepato-splenomegaly Extremities: No clubbing, No cyanosis, No edema Skin: No rashes, No breakdown Lymphatic: No Cervical, Supraclavicular, or Inguinal Adenopathy Neurological: Cranial nerves II-XII grossly intact, Motor Exam 5/5 strength throughout Psych/Mental Status: Normal Affect, Appropriate Laboratory Results 05/13/20 15:55: WBC 7.4, RBC 4.69, Hgb 15.9, Hct 45.6, MCV 97.2 H, MCH 33.9 H, MCHC 34.9, RDW Std Deviation 56.3 H, RDW Coeff of Harjeet 15.9 H, Plt Count 203, MPV 9.9, Immature Gran % (Auto) 0.300, Neut % (Auto) 76.1 H, Lymph % (Auto) 14.0 L, [place] % (Auto) 7.7, Eos % (Auto) 1.5, Baso % (Auto) 0.4, Absolute Neuts (auto) 5.6, Absolute Lymphs (auto) 1.03, Nucleated RBC % 0 05/13/20 15:55: Sodium 133 L, Potassium 3.1 L, Chloride 98, Carbon Dioxide 30.0, Anion Gap 5, BUN 7, Creatinine 0.94, Estim Creat Clear Calc 64.31, Est GFR (MDRD) Af Amer 104, Est GFR (MDRD) Non-Af 86, BUN/Creatinine Ratio 7.4 L, Glucose 103, Calcium 9.2, Total Bilirubin 1.00, AST 55 H, ALT 29, Alkaline Phosphatase 68, Total Protein 8.4 H, Albumin 4.0, Globulin 4.4 H, Albumin/Globulin Ratio 0.9 05/13/20 15:55: Ethyl Alcohol 67.0 05/13/20 16:50: Urine Opiates Screen NEGATIVE, Urine Methadone Screen NEGATIVE, Ur Barbiturates Screen NEGATIVE, Ur Phencyclidine Scrn NEGATIVE, Ur Amphetamines Screen NEGATIVE, U Methamphetamin-MDMA POSITIVE H, U Benzodiazepines Scrn NEGATIVE, Urine Cocaine Screen NEGATIVE, U Cannabinoids Screen POSITIVE H, Ur Drug Screen Comment 05/14/20 06:35: WBC 6.4, RBC 3.85 L, Hgb 12.8 L, Hct 37.2 L, MCV 96.6 H, MCH 33.2 H, MCHC 34.4, RDW Std Deviation 55.0 H, RDW Coeff of Harjeet 15.8 H, Plt Count 144 L, MPV 9.4, Immature Gran % (Auto) 0.200, Neut % (Auto) 61.9, Lymph % (Auto) 22.8, [place] % (Auto) 9.3, Eos % (Auto) 5.2 H, Baso % (Auto) 0.6, Absolute Neuts (auto) 4.0, Absolute Lymphs (auto) 1.45, Nucleated RBC % 0 05/14/20 06:35: Sodium 129 L, Potassium 3.9, Chloride 97 L, Carbon Dioxide 26.0, Anion Gap 6, BUN 7, Creatinine 0.60 L, Estim Creat Clear Calc 96.64, Est GFR (MDRD) Af Amer 174, Est GFR (MDRD) Non-Af 144, BUN/Creatinine Ratio 11.6, Glucose 83, Calcium 8.2 L, Magnesium 1.9 Current Medications Ascorbic Acid (Ascorbic Acid 500 Mg Tablet) 1,000 mg PO BID [facility] Last Admin: 05/14/20 08:26 Dose: 1,000 mg Documented by: Atorvastatin Calcium (Atorvastatin Calcium 20 Mg Tablet) 20 mg PO QHS [facility] Last Admin: 05/13/20 21:21 Dose: 20 mg Documented by: Carvedilol (Carvedilol 3.125 Mg Tablet) 3.125 mg PO BID [facility] Last Admin: 05/14/20 08:26 Dose: 3.125 mg Documented by: Dicyclomine HCl (Dicyclomine 10 Mg Capsule) 20 mg PO Q6H PRN PRN PRN Reason: abdominal discomfort Last Admin: 05/14/20 08:27 Dose: 20 mg Documented by: Docusate Sodium (Docusate Sodium 100 Mg Capsule) 100 mg PO BID [facility] Last Admin: 05/14/20 08:28 Dose: Not Given Documented by: Donepezil HCl (Donepezil Hcl 10 Mg Tablet) 10 mg PO QHS [facility] Last Admin: 05/13/20 21:21 Dose: 10 mg Documented by: Enoxaparin Sodium (Enoxaparin 60 Mg/0.6 Ml Syringe) 60 mg SC Q12@0600,1800 [facility] Last Admin: 05/14/20 05:16 Dose: 60 mg Documented by: Ferrous Sulfate (Ferrous Sulfate 325 Mg Tablet) [facility] Last Admin: 05/14/20 08:27 Dose: 325 mg Documented by: Finasteride (Finasteride 5 Mg Tablet) 5 mg PO DAILY [facility] Last Admin: 05/14/20 08:26 Dose: 5 mg Documented by: Folic Acid (Folic Acid 1 Mg Tablet) 1 mg PO DAILY@0800 [facility] Last Admin: 05/14/20 08:26 Dose: 1 mg Documented by: Furosemide (Furosemide 40 Mg Tablet) 40 mg PO DAILY [facility] Last Admin: 05/14/20 08:27 Dose: 40 mg Documented by: Furosemide (Furosemide 20 Mg Tablet) 20 mg PO DAILY [facility] Last Admin: 05/14/20 08:27 Dose: 20 mg Documented by: Gabapentin (Gabapentin 300 Mg Capsule) 300 mg PO Q8H PRN PRN PRN Reason: moderate to severe anxiety Last Admin: 05/13/20 21:18 Dose: 300 mg Documented by: Hydroxyzine Pamoate (Hydroxyzine Magy 25 Mg Capsule) 50 mg PO Q4H PRN PRN PRN Reason: mild anxiety Last Admin: 05/14/20 08:27 Dose: 50 mg Documented by: Lisinopril (Lisinopril 10 Mg Tablet) 10 mg PO DAILY [facility] Last Admin: 05/14/20 08:26 Dose: 10 mg Documented by: Loperamide HCl (Loperamide 2 Mg Capsule) 2 mg PO Q4H PRN PRN PRN Reason: LOOSE STOOLS Nicotine (Nicotine 21 Mg Patch) 21 mg TD DAILY [facility] Last Admin: 05/13/20 21:25 Dose: 21 mg Documented by: Ondansetron HCl (Ondansetron 8 Mg Tablet) 8 mg PO Q8H PRN PRN PRN Reason: NAUSEA Last Admin: 05/14/20 02:03 Dose: 8 mg Documented by: Oxybutynin Chloride (Oxybutynin 5 Mg Tablet) 5 mg PO TID [facility] Last Admin: 05/14/20 05:16 Dose: 5 mg Documented by: Pantoprazole Sodium (Pantoprazole Sodium 40 Mg Tablet) 40 mg PO DAILY [facility] Last Admin: 05/14/20 08:27 Dose: 40 mg Documented by: Paroxetine HCl (Paroxetine 10 Mg Tablet) 10 mg PO QHS [facility] Last Admin: 05/13/20 21:20 Dose: 10 mg Documented by: Paroxetine HCl (Paroxetine 20 Mg Tablet) 40 mg PO QHS [facility] Last Admin: 05/13/20 21:19 Dose: 40 mg Documented by: Phenobarbital (Phenobarbital 32.4 Mg Tablet) 97.2 mg PO Q4H [facility]; Taper Stop: 05/18/20 01:59 Last Admin: 05/14/20 05:16 Dose: 97.2 mg Documented by: Pramipexole Dihydrochloride (Pramipexole Di-Hcl 0.5 Mg Tablet) 0.5 mg PO QHS [facility] Last Admin: 05/13/20 21:22 Dose: 0.5 mg Documented by: Sodium Chloride (0.9% Saline Lock 10 Ml Syringe) 10 - 40 ml IV UD PRN PRN Reason: SALINE FLUSH Last Admin: 05/14/20 05:19 Dose: 10 ml Documented by: Thiamine HCl (Thiamine Hydrochloride 100 Mg Tablet) 100 mg PO DAILYCM [facility] Last Admin: 05/14/20 08:27 Dose: 100 mg Documented by: Trazodone HCl (Trazodone 100 Mg Tablet) 100 mg PO QHS PRN PRN Reason: INSOMNIA Trazodone HCl (Trazodone 100 Mg Tablet) 300 mg PO QHS [facility] Last Admin: 05/13/20 21:22 Dose: 300 mg Documented by: Medical Necessity - Tobacco Use Smoking Status: Current every day smoker Tobacco Use: Cigarettes Assessment/Plan All Active Problems (Last Reviewed 01/11/20 @ 18:[address] Mike Cardona MD) Alcohol dependence with acute alcoholic intoxication (Acute) Acute alcohol withdrawal (Acute) This is a 60 years old male patient presented to the emergency room requesting admission for acute alcohol intoxication/withdrawal and he is interested in medical stabilization. #1 acute alcohol intoxication/withdrawal: He is on tapering phenobarbital, thiamine, folic acid, as needed Vistaril, Imodium, Zofran and trazodone. Patient was admitted for detox back on December, but he relapsed drinking alcohol on February,. His last drink was yesterday morning. Blood alcohol level on admission was 67. Urine drug screen was positive for methamphetamines and cannabinoids. Routine blood work reviewed. He does have chronic hyponatremia. Plan: Continue same treatment, consult [facility] program. #2 Chronic hyponatremia/hypokalemia: Secondary to beer potomania. Today sodium is 129, it was 133 yesterday. No change in his mentation and no seizure. Admission potassium was 3.1, replaced and corrected and today potassium 3.9. Plan to monitor. #4 status post mitral valve replacement with mechanical valve: Continue therapeutic Lovenox twice daily, check INR. #5 paroxysmal atrial fibrillation status post pacemaker: Heart rate stable, continue Coreg for rate control and Lovenox for anticoagulation. #6 hypertension: Blood pressure stable, continue Coreg, Lasix and lisinopril. #7 alcohol abuse: Plan as above. #8 suspected COPD: Clinically stable, pulse ox is maintained on room air. Plan for albuterol as needed. #9 hyperlipidemia: Continue statins. #10 DVT prophylaxis: He is on subcu Lovenox twice daily. This note was generated with [employer] dictation software. It may contain incorrect words, spelling, and punctuation that were not noted in checking the note before signing. Inpatient E&M: 76721 Subs Hosp L2
--- NOTE | 2020-05-14 09:32 | ADDICTION ---
This caption writer met with PT in his room to complete ASAM, MSE, AUDIT assessments and to plan for discharge. All assessments completed, faxed to [facility] and placed in PT's chart on ortega. PT agreeable to follow-up with [facility] for Intensive Outpatient treatment and is scheduled to assessment at [facility] on 05/26/20.
[2020-05-14] MEDS: Acetaminophen 325 MG Tablet 650 MG PO ×2 (10:11→16:22)
[2020-05-14] MEDS: Gabapentin 300 MG Capsule PO ×2 (10:11→21:21)
[2020-05-14 11:38] LABS: Prothrombin Time (Protime)PT. 12.7 SECONDS (11.7-14.9)
[2020-05-14 12:14] VITALS: BP 129/78; PULSE 66; RESP 18; TEMP 36.6; O2SAT 95
--- NOTE | 2020-05-14 12:19 | NURSING ---
prior nicotine patch pt found in his bed linens- destroyed.
--- NOTE | 2020-05-14 14:42 | CASEMGMT ---
Social Work Note SW received message from Leslie pt's CM at [facility]. Leslie states pt has seven meals a week and four hours a week of aide services through [facility]. Leslie states pt has CM Thuy Widows through [facility]. Leslie asked to be updated when pt discharges from [facility]. Flori Dangelo WATER PUMP INSTALLER, USER EXPERIENCE ARCHITECT
--- NOTE | 2020-05-14 15:51 | CHAPLAIN ---
Type of Pastoral Visit _x__ Initial Visit ___ Follow-up Visit ___ On-call Visit ___ General Patient Visit ___ Spiritual Assessment ___ Family Conference ___ Bereavement ___ Rapid Response ___ Code Blue ___ Other (describe below) Pastoral Care Referral From _x__ Patient ___ Family ___ Nurse ___ Physician ___ Town Clerk ___ [place] Decorator ___ Other (describe below) Sacrament/Intervention _x__ Active listening ___ Anointing ___ Rastafari ___ Bereavement ___ Communion _x__ Pascale exploration ___ _x__ Life review _x__ Prayer ___ Reconciliation ___ Sacrament of Sick _x__ Supportive presence ___ Wedding ___ Other (describe below) Pastoral Comments patient has been seen in previous admissions; pt identifies as Sabianism and one who seeks support for spiritual care and prayer; presence and support given
[2020-05-14 16:13] VITALS: BP 126/66; PULSE 68; RESP 18; TEMP 36.8; O2SAT 96
--- NOTE | 2020-05-14 19:25 | NURSING ---
updated pt's significant other, Catherine, with pt's permission.
[2020-05-14 21:17] VITALS: BP 128/83; PULSE 70; RESP 18; TEMP 36.6; O2SAT 97
[2020-05-14] MEDS: Atorvastatin Calcium 20 MG Tablet PO (21:23)
[2020-05-14] MEDS: PARoxetine 10 MG Tablet PO (21:23)
[2020-05-14] MEDS: Pramipexole Di-HCl 0.5 MG Tablet PO (21:23)
[2020-05-14] MEDS: traZODone 100 MG Tablet 300 MG PO (21:23)
[2020-05-14] MEDS: Paroxetine 20 MG Tablet 40 MG PO (21:23)
[2020-05-14] MEDS: Donepezil HCl 10 MG Tablet PO (21:24)
[2020-05-14] MEDS: Docusate Sodium 100 MG Capsule PO (21:24)
[2020-05-15 02:00] VITALS: BP 119/71; PULSE 61; RESP 18; TEMP 36.1; O2SAT 96
[2020-05-15] MEDS: Phenobarbital 32.4 MG Tablet 64.8 MG PO ×6 (02:01→22:18)
[2020-05-15] MEDS: Oxybutynin 5 MG Tablet PO ×3 (06:05→22:18)
[2020-05-15] MEDS: Enoxaparin 60 MG/0.6 ML Syringe SC ×2 (06:05→17:22)
[2020-05-15 07:15] VITALS: PULSE 80
[2020-05-15 07:31] VITALS: BP 119/82; PULSE 69; RESP 16; TEMP 36.8; O2SAT 95
[2020-05-15] MEDS: Lisinopril 10 MG Tablet PO (07:35)
[2020-05-15] MEDS: Ascorbic Acid 500 MG Tablet 1000 MG PO ×2 (07:35→22:20)
[2020-05-15] MEDS: Carvedilol 3.125 MG TABLET PO ×2 (07:36→22:19)
[2020-05-15] MEDS: Finasteride 5 MG Tablet PO (07:36)
[2020-05-15] MEDS: Ferrous Sulfate 325 MG Tablet PO (07:36)
[2020-05-15] MEDS: Pantoprazole Sodium 40 MG Tablet PO (07:36)
[2020-05-15] MEDS: Thiamine Hydrochloride 100 MG Tablet PO (07:37)
[2020-05-15] MEDS: Furosemide 40 MG Tablet PO (07:38)
[2020-05-15] MEDS: Folic Acid 1 MG Tablet PO (07:39)
[2020-05-15] MEDS: Furosemide 20 MG Tablet PO (07:39)
--- NOTE | 2020-05-15 08:50 | PN_ITS ---
Patient Problems: Active and Suspected Problems (Last Reviewed 01/11/20 @ 18:[address] Mike Cardona MD) Alcohol dependence with acute alcoholic intoxication (Acute) Subjective: Chief complaint: Follow-up after admission for acute alcohol intoxication/withdrawal. Patient seen and examined. No acute events overnight. Today, is feeling better, slept well last night but he had nightmares. No other complaints. Vital signs are stable. - Physical Exam Vitals/I&O's: Vital Signs Temp Pulse Resp BP Pulse Ox 98.3 F 69 16 119/82 H 95 05/15/20 07:31 05/15/20 07:31 05/15/20 07:31 05/15/20 07:31 05/15/20 07:31 Oxygen Delivery Method Room Air Weight: 118 lb 0.003 oz Body Mass Index (BMI) 20.9 Finger Stick Blood Glucose 109 Intake and Output for Last 24 Hours 05/13/20 05/14/20 05/15/20 23:59 23:59 23:59 Intake Total 300 / 1200 2150 / 2150 400 / 400 Output Total 500 / 500 Balance 300 / 700 1650 / 1650 400 / 400 General: Alert, Oriented x3, Cooperative, No apparent distress HEENT: Atraumatic, PERRLA, EOMI, Normocephalic Oral: Moist Mucosa, No Gingival or Mucosal Lesions/ Ulcerations Neck: Supple, No JVD, Negative Carotid Bruits, Trachea Midline, Thyroid Normal Size and Texture Lungs: Clear to auscultation, Normal air movement, No rhonchi, No wheeze, No rales Cardiovascular: Regular rate, Regular Rhythm, Normal S1, Normal S2, PMI Normal Abdomen: Bowel Sounds Present, Soft, Non Tender, Non-Distended, No Hepato- splenomegaly Extremities: No clubbing, No cyanosis, No edema Skin: No rashes, No breakdown Lymphatic: No Cervical, Supraclavicular, or Inguinal Adenopathy Neurological: Cranial nerves II-XII grossly intact, Neuro grossly intact Psych/Mental Status: Normal Affect, Appropriate Laboratory Results 05/14/20 11:15: PT 12.7, INR 1.0 Current Medications Acetaminophen (Acetaminophen 325 Mg Tablet) 650 mg PO Q6H PRN PRN PRN Reason: Pain Score 1-10 Last Admin: 05/14/20 16:22 Dose: 650 mg Documented by: Albuterol Sulfate (Albuterol 2.5 Mg/3 Ml Vial.Neb.) 2.5 mg INHALATION Q4H PRN PRN PRN Reason: Shortness of breath, wheezing Ascorbic Acid (Ascorbic Acid 500 Mg Tablet) 1,000 mg PO BID [facility] Last Admin: 05/15/20 07:35 Dose: 1,000 mg Documented by: Atorvastatin Calcium (Atorvastatin Calcium 20 Mg Tablet) 20 mg PO QHS [facility] Last Admin: 05/14/20 21:23 Dose: 20 mg Documented by: Carvedilol (Carvedilol 3.125 Mg Tablet) 3.125 mg PO BID [facility] Last Admin: 05/15/20 07:36 Dose: 3.125 mg Documented by: Dicyclomine HCl (Dicyclomine 10 Mg Capsule) 20 mg PO Q6H PRN PRN PRN Reason: abdominal discomfort Last Admin: 05/14/20 16:22 Dose: 20 mg Documented by: Docusate Sodium (Docusate Sodium 100 Mg Capsule) 100 mg PO BID [facility] Last Admin: 05/15/20 07:37 Dose: Not Given Documented by: Donepezil HCl (Donepezil Hcl 10 Mg Tablet) 10 mg PO QHS [facility] Last Admin: 05/14/20 21:24 Dose: 10 mg Documented by: Enoxaparin Sodium (Enoxaparin 60 Mg/0.6 Ml Syringe) 60 mg SC Q12@0600,1800 [facility] Last Admin: 05/15/20 06:05 Dose: 60 mg Documented by: Ferrous Sulfate (Ferrous S[facility]ate 325 Mg Tablet) [facility] Last Admin: 05/15/20 07:36 Dose: 325 mg Documented by: Finasteride (Finasteride 5 Mg Tablet) 5 mg PO DAILY [facility] Last Admin: 05/15/20 07:36 Dose: 5 mg Documented by: Folic Acid (Folic Acid 1 Mg Tablet) 1 mg PO DAILY@0800 [facility] Last Admin: 05/15/20 07:39 Dose: 1 mg Documented by: Furosemide (Furosemide 40 Mg Tablet) 40 mg PO DAILY [facility] Last Admin: 05/15/20 07:38 Dose: 40 mg Documented by: Furosemide (Furosemide 20 Mg Tablet) 20 mg PO DAILY [facility] Last Admin: 05/15/20 07:39 Dose: 20 mg Documented by: Gabapentin (Gabapentin 300 Mg Capsule) 300 mg PO Q8H PRN PRN PRN Reason: moderate to severe anxiety Last Admin: 05/14/20 21:21 Dose: 300 mg Documented by: Hydroxyzine Pamoate (Hydroxyzine Magy 25 Mg Capsule) 50 mg PO Q4H PRN PRN PRN Reason: mild anxiety Last Admin: 05/14/20 16:22 Dose: 50 mg Documented by: Lisinopril (Lisinopril 10 Mg Tablet) 10 mg PO DAILY [facility] Last Admin: 05/15/20 07:35 Dose: 10 mg Documented by: Loperamide HCl (Loperamide 2 Mg Capsule) 2 mg PO Q4H PRN PRN PRN Reason: LOOSE STOOLS Nicotine (Nicotine 21 Mg Patch) 21 mg TD DAILY [facility] Last Admin: 05/15/20 07:38 Dose: 21 mg Documented by: Nutritional Formula (Lactose Free) (Ensure Enlive 120 Ml Liquid) 120 ml PO 4X/DAY [facility] Last Admin: 05/14/20 21:25 Dose: 120 ml Documented by: Ondansetron HCl (Ondansetron 8 Mg Tablet) 8 mg PO Q8H PRN PRN PRN Reason: NAUSEA Last Admin: 05/14/20 16:22 Dose: 8 mg Documented by: Oxybutynin Chloride (Oxybutynin 5 Mg Tablet) 5 mg PO TID [facility] Last Admin: 05/15/20 06:05 Dose: 5 mg Documented by: Pantoprazole Sodium (Pantoprazole Sodium 40 Mg Tablet) 40 mg PO DAILY [facility] Last Admin: 05/15/20 07:36 Dose: 40 mg Documented by: Paroxetine HCl (Paroxetine 10 Mg Tablet) 10 mg PO QHS [facility] Last Admin: 05/14/20 21:23 Dose: 10 mg Documented by: Paroxetine HCl (Paroxetine 20 Mg Tablet) 40 mg PO QHS [facility] Last Admin: 05/14/20 21:23 Dose: 40 mg Documented by: Phenobarbital (Phenobarbital 32.4 Mg Tablet) 64.8 mg PO Q4H [facility]; Taper Stop: 05/18/20 01:59 Last Admin: 05/15/20 06:04 Dose: 64.8 mg Documented by: Pramipexole Dihydrochloride (Pramipexole Di-Hcl 0.5 Mg Tablet) 0.5 mg PO QHS [facility] Last Admin: 05/14/20 21:23 Dose: 0.5 mg Documented by: Sodium Chloride (0.9% Saline Lock 10 Ml Syringe) 10 - 40 ml IV UD PRN PRN Reason: SALINE FLUSH Last Admin: 05/14/20 05:19 Dose: 10 ml Documented by: Thiamine HCl (Thiamine Hydrochloride 100 Mg Tablet) [facility] Last Admin: 05/15/20 07:37 Dose: 100 mg Documented by: Trazodone HCl (Trazodone 100 Mg Tablet) 100 mg PO QHS PRN PRN Reason: INSOMNIA Trazodone HCl (Trazodone 100 Mg Tablet) 300 mg PO QHS [facility] Last Admin: 05/14/20 21:23 Dose: 300 mg Documented by: Medical Necessity - Tobacco Use Smoking Status: Current every day smoker Tobacco Use: Cigarettes Assessment/Plan All Active Problems (Last Reviewed 01/11/20 @ 18:[address] Mike Cardona MD) Alcohol dependence with acute alcoholic intoxication (Acute) Acute alcohol withdrawal (Acute) This is a 60 years old male patient presented to the emergency room requesting admission for acute alcohol intoxication/withdrawal and he is interested in medical stabilization. #1 acute alcohol intoxication/withdrawal: Remains on tapering phenobarbital, thiamine, folic acid, as needed Vistaril, Imodium, Zofran and trazodone. At this time, he has no significant withdrawal symptoms vital signs are stable, no tachycardia or hypotension. Patient was admitted for detox back on December, but he relapsed drinking alcohol on February,. Blood alcohol level on admission was 67. Urine drug screen was positive for methamphetamines and cannabinoids. Plan: Continue same treatment. #2 Chronic hyponatremia/hypokalemia: Secondary to beer potomania. Most recent sodium is 129, attributed to beer potomania. No change in his mentation and no seizure. Admission potassium was 3.1, replaced and corrected and most recent potassium 3.9. Plan to monitor. #4 status post mitral valve replacement with mechanical valve: Continue therapeutic Lovenox twice daily, pro time and INR were normal. #5 paroxysmal atrial fibrillation status post pacemaker: Heart rate stable, continue Coreg for rate control and Lovenox for anticoagulation. #6 hypertension: Blood pressure stable, continue Coreg, Lasix and lisinopril. #7 alcohol abuse: Plan as above. #8 suspected COPD: Clinically stable, pulse ox is maintained on room air. Plan for albuterol as needed. #9 hyperlipidemia: Continue statins. #10 DVT prophylaxis: He is on subcu Lovenox twice daily. This note was generated with [employer] dictation software. It may contain incorrect words, spelling, and punctuation that were not noted in checking the note before signing. Inpatient E&M: 38360 Subs Hosp L2
--- NOTE | 2020-05-15 09:54 | CASEMGMT ---
Addendum entered by Flori Dangelo 05/15/20 15:39: Green sheet on chart for staff to let [facility] know when pt is discharged. Addendum entered by Flori Dangelo 05/15/20 14:03: SW placed another call to Neha [facility] RN. ([phone]). Neha states she is the RN that speaks to Pt's while they are in the hospital and Thuy is also pt's CM. Pt also has behavior health RN. ROSY provided update to Neha. Original Note: Social Work Note SW received message from Pt's RN CM through [facility] Thuy ([phone]) requesting call back. SW attempted to call Thuy back, phone kept ringing, no answer and SW unable to leave message. Flori Dangelo MELTING OPERATOR, CLINICAL SAFETY SPECIALIST
[2020-05-15] MEDS: Acetaminophen 325 MG Tablet 650 MG PO ×2 (10:11→20:50)
[2020-05-15 13:00] VITALS: BP 113/65; PULSE 88; RESP 18; TEMP 37.3; O2SAT 97
[2020-05-15 16:20] VITALS: BP 131/81; PULSE 72; RESP 18; TEMP 36.8; O2SAT 97
[2020-05-15] MEDS: Gabapentin 300 MG Capsule PO (16:25)
[2020-05-15 20:43] VITALS: BP 115/72; PULSE 77; RESP 18; TEMP 36.7; O2SAT 97
[2020-05-15] MEDS: Dicyclomine 10 MG Capsule 20 MG PO (20:50)
[2020-05-15] MEDS: Atorvastatin Calcium 20 MG Tablet PO (22:18)
[2020-05-15] MEDS: Docusate Sodium 100 MG Capsule PO (22:18)
[2020-05-15] MEDS: Pramipexole Di-HCl 0.5 MG Tablet PO (22:18)
[2020-05-15] MEDS: PARoxetine 10 MG Tablet PO (22:18)
[2020-05-15] MEDS: Paroxetine 20 MG Tablet 40 MG PO (22:18)
[2020-05-15] MEDS: Donepezil HCl 10 MG Tablet PO (22:18)
[2020-05-15] MEDS: traZODone 100 MG Tablet 300 MG PO (22:19)
[2020-05-16] MEDS: Phenobarbital 32.4 MG Tablet 64.8 MG PO ×2 (02:43→08:21)
[2020-05-16 02:45] VITALS: BP 119/67; PULSE 63; RESP 18; TEMP 36.4; O2SAT 94
[2020-05-16] MEDS: Enoxaparin 60 MG/0.6 ML Syringe SC (06:20)
[2020-05-16] MEDS: Oxybutynin 5 MG Tablet PO (06:20)
[2020-05-16] MEDS: Ferrous Sulfate 325 MG Tablet PO (08:16)
[2020-05-16] MEDS: Folic Acid 1 MG Tablet PO (08:16)
[2020-05-16] MEDS: Pantoprazole Sodium 40 MG Tablet PO (08:17)
[2020-05-16] MEDS: Ascorbic Acid 500 MG Tablet 1000 MG PO (08:17)
[2020-05-16] MEDS: Thiamine Hydrochloride 100 MG Tablet PO (08:19)
--- NOTE | 2020-05-16 08:31 | PCM.DC ---
- Discharge Diagnoses Current Active Problems: Current Active and Chronic Problems (Last Reviewed 01/11/20 @ 18:[address] Mike Cardona MD) Alcohol dependence with acute alcoholic intoxication (Acute) skilled nursing current use of anticoagulant (Chronic) History of prosthetic mitral valve (Chronic) Essential hypertension (Chronic) H/O mitral valve replacement with mechanical valve (Chronic ~2009) 27mm mechanical [employer] Mitral Valve prosthesis Nonrheumatic aortic (valve) insufficiency (Chronic) Hyperlipidemia (Chronic) Presence of permanent cardiac pacemaker (Chronic) Paroxysmal atrial fibrillation (Chronic) You will use the following diet at home:: Cardiac Your food should be the consistency of: Regular Discharge Activity: Return to Normal Activity Weight Bearing Status: Weight bearing as tolerated Call your doctor if you observe: Fever of 101 or Higher, Shortness of breath, Dizziness, Fainting spells, Chest pain, Increased palpitations (irregular heartbeat), Uncontrolled pain Instructions: Recovering from Addiction, Recovering from Addiction: Continuing with Counseling, Recovering from Addiction: Coping with Relapse Additional Instructions: Please follow-up with the 180 program as scheduled. Allergies/Adverse Reactions: Allergies ibuprofen Adverse Reaction (Verified 05/13/20 15:17) Upset Stomach metronidazole Adverse Reaction (Verified 05/13/20 15:17) Upset Stomach naproxen [From Aleve] Adverse Reaction (Verified 05/13/20 15:17) gi upset Medications to take at Discharge Carvedilol [Coreg (Beta Brock)] 3.125 mg PO BID 08/18/17 Donepezil HCl [Aricept] 10 mg PO QHS 08/18/17 Ferrous Sulfate 325 mg PO DAILY 08/18/17 Finasteride [Proscar] 5 mg PO DAILY 08/18/17 oxybutynin chloride 5 mg tablet 5 mg PO TID tab 11/29/18 paroxetine HCl 10 mg tablet 10 mg PO QHS 07/24/19 paroxetine HCl 40 mg tablet 40 mg PO QHS tab 07/24/19 pramipexole 0.5 mg tablet 0.5 mg PO QHS 07/24/19 acamprosate 333 mg tablet,delayed release 2 tablet PO TID tab 12/06/19 hydroxyzine HCl 25 mg tablet 25 mg PO TID PRN PRN 12/06/19 tiotropium bromide 18 mcg capsule with inhalation device 1 cap INHALATION DAILY 12/24/19 Ascorbic Acid [C-500] 1,000 mg PO BID 01/12/20 Atorvastatin Calcium [Lipitor] 20 mg PO QHS 01/12/20 Enoxaparin [Lovenox] 60 mg SC Q12@0600,1800 01/12/20 Furosemide 40 mg PO DAILY 01/12/20 Multivitamin/Iron/Folic Acid [Centrum Adults Tablet] 1 tab PO DAILY 01/12/20 Warfarin [Coumadin] 5 mg PO DAILY 01/12/20 Folic Acid 1 mg PO DAILY@0800 #60 tab 01/14/20 Thiamine Hydrochloride [Vitamin B1] 100 mg PO DAILYCM #90 tab 01/14/20 Docusate Sodium [Dok] 100 mg PO BID 05/13/20 Furosemide [Lasix] 20 mg PO DAILY 05/13/20 Lisinopril [Prinivil] 10 mg PO DAILY 05/13/20 Omeprazole 40 mg PO DAILY 05/13/20 Trazodone HCl 300 mg PO QHS 05/13/20 Primary Care Physician: Josue Cifuentes MD [Primary Care Provider] - Please follow up with your Primary Care Physician in: 2 weeks. Test Results: Test results from this visit will be discussed in further detail at your follow-up appointment, if applicable.
[2020-05-16] MEDS: Lisinopril 10 MG Tablet PO (10:49)
[2020-05-16] MEDS: Furosemide 20 MG Tablet PO (10:49)
[2020-05-16] MEDS: Finasteride 5 MG Tablet PO (10:50)
[2020-05-16] MEDS: Furosemide 40 MG Tablet PO (10:51)
[2020-05-16] MEDS: Carvedilol 3.125 MG TABLET PO (10:51)
[2020-05-16 10:53] VITALS: BP 117/78; PULSE 76; RESP 18; TEMP 36.7; O2SAT 96
--- NOTE | 2020-05-16 11:19 | PCM.DC.SUM ---
Discharge Date and Diagnosis - Problem List Patient Problems: Active and Suspected Problems (Last Reviewed 01/11/20 @ 18:[address] Mike Cardona MD) Alcohol dependence with acute alcoholic intoxication (Acute) Date of Admission: 05/13/20 Date of Discharge: 05/16/20 - Primary Discharge Diagnosis Acute Problems: Active Problems (Last Reviewed 01/11/20 @ 18:[address] Mike Cardona MD) #1 acute alcohol intoxication/withdrawal admitted for medical stabilization. #2 chronic hyponatremia/hypokalemia. - Secondary Discharge Diagnosis Chronic Problems: Chronic Problems (Last Reviewed 01/11/20 @ 18:[address] Mike Cardona MD) alf current use of anticoagulant (Chronic) History of prosthetic mitral valve (Chronic) Essential hypertension (Chronic) Alcohol abuse (Chronic) H/O mitral valve replacement with mechanical valve (Chronic ~2009) 27mm [address] Sharan Mitral Valve prosthesis Nonrheumatic aortic (valve) insufficiency (Chronic) Hyperlipidemia (Chronic) Presence of permanent cardiac pacemaker (Chronic) Paroxysmal atrial fibrillation (Chronic) Hospital Course and Treatment Operations: None Procedures: None Summary of Care Provided: Patient seen and examined on the day of discharge and appeared to be stable to be discharged home. He has no significant withdrawal symptoms and he is confident that he can go home today and he decided to quit drinking alcohol. When I asked him about the chance of relapse, he was comforted that he want to go back drinking again. His vital signs were stable. The patient is a 60 year old M presented to the emergency room requesting admission for acute alcohol intoxication/withdrawal for medical stabilization. Patient has been drinking since 2019, drinking every day, 8-10 beers daily. He was admitted back on December 2019 for detox and he remained sober for 3 months but he relapsed on February 2020. [facility], started on alcohol detox protocol with tapering phenobarbital, thiamine and folic acid supplement as needed Vistaril, Imodium, Zofran and trazodone. His routine blood work was remarkable for chronic hyponatremia and hypokalemia. Hyponatremia was attributed to beer potomania. Potassium was replaced and corrected. LFT was unremarkable. Serum magnesium was normal. Blood alcohol level on admission was 67. Urine drug screen was positive for methamphetamines and cannabinoids. Patient had no significant withdrawal symptoms during this hospital stay apart from anxiety and restlessness which improved with phenobarbital. His vital signs remained stable. He was evaluated by 180 program, recommended extensive outpatient treatment and he has an appointment on May 26, 2020. Patient discharged home in a stable condition, discharged on his previous medications without any changes including Lovenox injections twice daily for mitral valve replacement with mechanical valve, continued on folic acid and iron supplement, continued on other previous medications, plan to follow-up with 180 program as scheduled, recommended from PCP in 2 weeks. Patient Problems: Active and Suspected Problems (Last Reviewed 01/11/20 @ 18:[address] Mike Cardona MD) Alcohol dependence with acute alcoholic intoxication (Acute) - Physical Exam Vitals/I&O's: Vital Signs Temp Pulse Resp BP Pulse Ox 98.0 F 76 18 117/78 96 05/16/20 10:53 05/16/20 10:53 05/16/20 10:53 05/16/20 10:53 05/16/20 10:53 Oxygen Delivery Method Room Air Weight: 118 lb 0.003 oz Body Mass Index (BMI) 20.9 Finger Stick Blood Glucose 109 Intake and Output for Last 24 Hours 05/14/20 05/15/20 05/16/20 23:59 23:59 23:59 Intake Total 2150 / 2150 900 / 900 600 / 600 Output Total 500 / 500 Balance 1650 / 1650 900 / 900 600 / 600 General: Alert, Oriented x3, Cooperative, No apparent distress HEENT: Atraumatic, PERRLA, EOMI, Normocephalic Oral: Moist Mucosa, No Gingival or Mucosal Lesions/ Ulcerations Neck: Supple, No JVD, Negative Carotid Bruits, Trachea Midline, Thyroid Normal Size and Texture Lungs: Clear to auscultation, Normal air movement, No rhonchi, No wheeze, No rales Cardiovascular: Regular rate, Regular Rhythm, Normal S1, Normal S2, PMI Normal Abdomen: Bowel Sounds Present, Soft, Non Tender, Non-Distended, No Hepato-splenomegaly Extremities: No clubbing, No cyanosis, No edema Skin: No rashes, No breakdown Lymphatic: No Cervical, Supraclavicular, or Inguinal Adenopathy Neurological: Cranial nerves II-XII grossly intact, Neuro grossly intact Psych/Mental Status: Normal Affect, Appropriate Current Medications Acetaminophen (Acetaminophen 325 Mg Tablet) 650 mg PO Q6H PRN PRN PRN Reason: Pain Score 1-10 Last Admin: 05/15/20 20:50 Dose: 650 mg Documented by: Albuterol Sulfate (Albuterol 2.5 Mg/3 Ml Vial.Neb.) 2.5 mg INHALATION Q4H PRN PRN PRN Reason: Shortness of breath, wheezing Ascorbic Acid (Ascorbic Acid 500 Mg Tablet) 1,000 mg PO BID [facility] Last Admin: 05/16/20 08:17 Dose: 1,000 mg Documented by: Atorvastatin Calcium (Atorvastatin Calcium 20 Mg Tablet) 20 mg PO QHS [facility] Last Admin: 05/15/20 22:18 Dose: 20 mg Documented by: Carvedilol (Carvedilol 3.125 Mg Tablet) 3.125 mg PO BID [facility] Last Admin: 05/16/20 10:51 Dose: 3.125 mg Documented by: Dicyclomine HCl (Dicyclomine 10 Mg Capsule) 20 mg PO Q6H PRN PRN PRN Reason: abdominal discomfort Last Admin: 05/15/20 20:50 Dose: 20 mg Documented by: Docusate Sodium (Docusate Sodium 100 Mg Capsule) 100 mg PO BID [facility] Last Admin: 05/16/20 10:47 Dose: Not Given Documented by: Donepezil HCl (Donepezil Hcl 10 Mg Tablet) 10 mg PO QHS [facility] Last Admin: 05/15/20 22:18 Dose: 10 mg Documented by: Enoxaparin Sodium (Enoxaparin 60 Mg/0.6 Ml Syringe) 60 mg SC Q12@0600,1800 [facility] Last Admin: 05/16/20 06:20 Dose: 60 mg Documented by: Ferrous Sulfate (Ferrous Sulfate 325 Mg Tablet) [facility] Last Admin: 05/16/20 08:16 Dose: 325 mg Documented by: Finasteride (Finasteride 5 Mg Tablet) 5 mg PO DAILY [facility] Last Admin: 05/16/20 10:50 Dose: 5 mg Documented by: Folic Acid (Folic Acid 1 Mg Tablet) 1 mg PO DAILY@0800 [facility] Last Admin: 05/16/20 08:16 Dose: 1 mg Documented by: Furosemide (Furosemide 40 Mg Tablet) 40 mg PO DAILY [facility] Last Admin: 05/16/20 10:51 Dose: 40 mg Documented by: Furosemide (Furosemide 20 Mg Tablet) 20 mg PO DAILY [facility] Last Admin: 05/16/20 10:49 Dose: 20 mg Documented by: Gabapentin (Gabapentin 300 Mg Capsule) 300 mg PO Q8H PRN PRN PRN Reason: moderate to severe anxiety Last Admin: 05/15/20 16:25 Dose: 300 mg Documented by: Hydroxyzine Pamoate (Hydroxyzine Magy 25 Mg Capsule) 50 mg PO Q4H PRN PRN PRN Reason: mild anxiety Last Admin: 05/14/20 16:22 Dose: 50 mg Documented by: Lisinopril (Lisinopril 10 Mg Tablet) 10 mg PO DAILY [facility] Last Admin: 05/16/20 10:49 Dose: 10 mg Documented by: Loperamide HCl (Loperamide 2 Mg Capsule) 2 mg PO Q4H PRN PRN PRN Reason: LOOSE STOOLS Nicotine (Nicotine 21 Mg Patch) 21 mg TD DAILY [facility] Last Admin: 05/16/20 10:50 Dose: Not Given Documented by: Nutritional Formula (Lactose Free) (Ensure Enlive 120 Ml Liquid) 120 ml PO 4X/DAY [facility] Last Admin: 05/16/20 10:50 Dose: Not Given Documented by: Ondansetron HCl (Ondansetron 8 Mg Tablet) 8 mg PO Q8H PRN PRN PRN Reason: NAUSEA Last Admin: 05/14/20 16:22 Dose: 8 mg Documented by: Oxybutynin Chloride (Oxybutynin 5 Mg Tablet) 5 mg PO TID [facility] Last Admin: 05/16/20 06:20 Dose: 5 mg Documented by: Pantoprazole Sodium (Pantoprazole Sodium 40 Mg Tablet) 40 mg PO DAILY [facility] Last Admin: 05/16/20 08:17 Dose: 40 mg Documented by: Paroxetine HCl (Paroxetine 10 Mg Tablet) 10 mg PO QHS [facility] Last Admin: 05/15/20 22:18 Dose: 10 mg Documented by: Paroxetine HCl (Paroxetine 20 Mg Tablet) 40 mg PO QHS [facility] Last Admin: 05/15/20 22:18 Dose: 40 mg Documented by: Phenobarbital (Phenobarbital 32.4 Mg Tablet) 64.8 mg PO Q6H [facility]; Taper Stop: 05/18/20 01:59 Last Admin: 05/16/20 08:21 Dose: 64.8 mg Documented by: Pramipexole Dihydrochloride (Pramipexole Di-Hcl 0.5 Mg Tablet) 0.5 mg PO QHS [facility] Last Admin: 05/15/20 22:18 Dose: 0.5 mg Documented by: Sodium Chloride (0.9% Saline Lock 10 Ml Syringe) 10 - 40 ml IV UD PRN PRN Reason: SALINE FLUSH Last Admin: 05/14/20 05:19 Dose: 10 ml Documented by: Thiamine HCl (Thiamine Hydrochloride 100 Mg Tablet) 100 mg PO DAILYCM [facility] Last Admin: 05/16/20 08:19 Dose: 100 mg Documented by: Trazodone HCl (Trazodone 100 Mg Tablet) 100 mg PO QHS PRN PRN Reason: INSOMNIA Trazodone HCl (Trazodone 100 Mg Tablet) 300 mg PO QHS [facility] Last Admin: 05/15/20 22:19 Dose: 300 mg Documented by: Discharge Activity: Return to Normal Activity Weight Bearing Status: Weight bearing as tolerated Call your doctor if you observe: Fever of 101 or Higher, Shortness of breath, Dizziness, Fainting spells, Chest pain, Increased palpitations (irregular heartbeat), Uncontrolled pain Home Medications: Medications to take at Discharge Carvedilol [Coreg (Beta Brock)] 3.125 mg PO BID 08/18/17 Donepezil HCl [Aricept] 10 mg PO QHS 08/18/17 Ferrous Sulfate 325 mg PO DAILY 08/18/17 Finasteride [Proscar] 5 mg PO DAILY 08/18/17 oxybutynin chloride 5 mg tablet 5 mg PO TID tab 11/29/18 paroxetine HCl 10 mg tablet 10 mg PO QHS 07/24/19 paroxetine HCl 40 mg tablet 40 mg PO QHS tab 07/24/19 pramipexole 0.5 mg tablet 0.5 mg PO QHS 07/24/19 acamprosate 333 mg tablet,delayed release 2 tablet PO TID tab 12/06/19 hydroxyzine HCl 25 mg tablet 25 mg PO TID PRN PRN 12/06/19 tiotropium bromide 18 mcg capsule with inhalation device 1 cap INHALATION DAILY 12/24/19 Ascorbic Acid [C-500] 1,000 mg PO BID 01/12/20 Atorvastatin Calcium [Lipitor] 20 mg PO QHS 10/18/20 Enoxaparin [Lovenox] 60 mg SC Q12@0600,1800 01/12/20 Furosemide 40 mg PO DAILY 01/12/20 Multivitamin/Iron/Folic Acid [Centrum Adults Tablet] 1 tab PO DAILY 01/12/20 Warfarin [Coumadin] 5 mg PO DAILY 01/12/20 Folic Acid 1 mg PO DAILY@0800 #60 tab 01/14/20 Thiamine Hydrochloride [Vitamin B1] 100 mg PO DAILYCM #90 tab 01/14/20 Docusate Sodium [Dok] 100 mg PO BID 05/13/20 Furosemide [Lasix] 20 mg PO DAILY 05/13/20 Lisinopril [Prinivil] 10 mg PO DAILY 05/13/20 Omeprazole 40 mg PO DAILY 05/13/20 Trazodone HCl 300 mg PO QHS 05/13/20 Primary Care Physician: Josue Cifuentes MD [Primary Care Provider] - Please follow up with your Primary Care Physician in: 2 weeks. Patient Instructions: Recovering from Addiction, Recovering from Addiction: Continuing with Counseling, Recovering from Addiction: Coping with Relapse Disposition: Home Minutes spent on discharge:: 27 Patient Condition:: Stable Medical Necessity - Tobacco Use Smoking Status: Current every day smoker Tobacco Use: Cigarettes Meaningful Use Info Meaningful Use Diagnoses (Choose all that apply): None applicable Inpatient E&M: 41834 Disch Hosp
== END 2020-05-16 11:52 | disposition home or self-care (01) | DRG 897 ==
LOC: ED 16:57 → MS3 17:30
PROVIDERS: Admitting Provider Family Medicine; Emergency Provider Emergency Medicine; PCP Family Medicine; Visit Provider Hospitalist
DX: F10.239 Alcohol dependence with withdrawal, unspecified (principal); E87.1 Hypo-osmolality and hyponatremia; K70.30 Alcoholic cirrhosis of liver without ascites; F10.229 Alcohol dependence with intoxication, unspecified; Z95.3 Presence of xenogenic heart valve; E87.6 Hypokalemia; Z95.0 Presence of cardiac pacemaker; F17.210 Nicotine dependence, cigarettes, uncomplicated; Z79.02 Long term (current) use of antithrombotics/antiplatelets; F32.9 Major depressive disorder, single episode, unspecified; F41.9 Anxiety disorder, unspecified; E78.5 Hyperlipidemia, unspecified; I48.0 Paroxysmal atrial fibrillation; I10 Essential (primary) hypertension; Z79.899 Other long term (current) drug therapy; K21.9 Gastro-esophageal reflux disease without esophagitis; N40.0 Benign prostatic hyperplasia without lower urinary tract symptoms; Y90.3 Blood alcohol level of 60-79 mg/100 ml
CPT/HCPCS: 36415; 80048; 80053; 80307; 82077; 83735; 85025; 85610; 93005; 97802; 99285; A4216

== ENCOUNTER → 2020-05-18 | Outpatient (CLI) | payer MEDICARE, MEDICAID, SELFPAY ==
[2020-05-13 17:53] VITALS: BMI 20.9
[2020-05-18 12:56] LABS: International Normalized Ratio 0.9; Prothrombin Time (Protime)PT. 11.9 SECONDS (11.7-14.9)
== END | disposition home or self-care (01) ==
LOC: LABSPEC 12:21
PROVIDERS: Referring Provider Family Medicine; Visit Provider Family Medicine
DX: Z95.2 Presence of prosthetic heart valve (principal)
CPT/HCPCS: 85610

== ENCOUNTER → 2020-05-21 | Outpatient (CLI) | payer MEDICARE, MEDICAID, SELFPAY ==
[2020-05-13 17:53] VITALS: BMI 20.9
[2020-05-21 18:02] LABS: Lipase 82 U/L (73-393)
[2020-05-21 18:11] LABS: Erythrocyte Sedimentation Rate 13 mm/hr (0-20)
== END | disposition home or self-care (01) ==
LOC: LABSPEC 16:54
PROVIDERS: PCP Family Medicine; Referring Provider Family Medicine; Visit Provider Family Medicine
DX: R10.84 Generalized abdominal pain (principal)
CPT/HCPCS: 83690; 85652

== ENCOUNTER → 2020-05-25 | Outpatient (CLI) | payer MEDICARE, MEDICAID, SELFPAY ==
[2020-05-13 17:53] VITALS: BMI 20.9
[2020-05-25 11:03] LABS: International Normalized Ratio 0.9; Prothrombin Time (Protime)PT. 11.7 SECONDS (11.7-14.9)
== END | disposition home or self-care (01) ==
LOC: LABSPEC 10:33
PROVIDERS: PCP Family Medicine; Referring Provider Family Medicine; Visit Provider Family Medicine
DX: Z95.2 Presence of prosthetic heart valve (principal)
CPT/HCPCS: 85610

== ENCOUNTER → 2020-05-29 | Outpatient (CLI) | payer MEDICARE, MEDICAID, SELFPAY ==
[2020-05-13 17:53] VITALS: BMI 20.9
[2020-05-29 12:22] LABS: International Normalized Ratio 1.3; Lipase 78 U/L (73-393); Prothrombin Time (Protime)PT. 15.4 SECONDS (11.7-14.9)
== END | disposition home or self-care (01) ==
LOC: LABSPEC 11:57
PROVIDERS: PCP Family Medicine; Referring Provider Family Medicine; Visit Provider Family Medicine
DX: R10.13 Epigastric pain (principal); Z95.2 Presence of prosthetic heart valve
CPT/HCPCS: 83690; 85610

== ENCOUNTER → 2020-06-01 | Outpatient (CLI) | payer MEDICARE, MEDICAID, SELFPAY ==
[2020-05-13 17:53] VITALS: BMI 20.9
[2020-06-01 09:48] LABS: International Normalized Ratio 1.8; Prothrombin Time (Protime)PT. 20.2 SECONDS (11.7-14.9)
== END | disposition home or self-care (01) ==
LOC: LABSPEC 09:28
PROVIDERS: PCP Family Medicine; Referring Provider Family Medicine; Visit Provider Family Medicine
DX: Z95.2 Presence of prosthetic heart valve (principal)
CPT/HCPCS: 85610

== ENCOUNTER → 2020-08-10 | Outpatient (CLI) | payer MEDICARE, MEDICAID, SELFPAY ==
[2020-07-31 15:03] VITALS: BMI 25.2
[2020-08-10 17:09] LABS: International Normalized Ratio 2.4; Prothrombin Time (Protime)PT. 25.2 SECONDS (11.7-14.9)
== END | disposition home or self-care (01) ==
LOC: LABSPEC 15:59
PROVIDERS: PCP Family Medicine; Visit Provider Family Medicine
DX: Z95.2 Presence of prosthetic heart valve (principal)
CPT/HCPCS: 85610

== ENCOUNTER → 2020-08-11 13:45 | Outpatient (CLI) | payer MEDICARE, MEDICAID, SELFPAY ==
[2020-07-31 15:03] VITALS: BMI 25.2
--- NOTE | 2020-08-11 13:48 | ECHOD_ITS ---
Reason For Study: PAROXYSMAL ATRIAL FIBRILLATION Procedure This was a 2D Doppler, Color Flow transthoracic echocardiogram. The study was technically difficult. Exam performed in department. Left Ventricle Normal LV size. Left ventricular systolic function is normal. The estimated ejection fraction is 60 %. There is evidence of diastolic dysfunction. No regional wall motion abnormalities noted. Right Ventricle Normal RV size. ICD or pacer leads identified within the right ventricle. Normal systolic function. Atria The left atrium is mildly enlarged. Normal right atrium. ICD or pacer leads identified within the right atrium. No doppler evidence for ASD. Mitral Valve Stable appearing mechanical mitral valve apparatus. Trivial transvalvular insufficiency of the mitral valve. Tricuspid Valve Normal tricuspid valve. Mild to moderate (1-2+) tricuspid valve insufficiency. Right ventricular systolic pressure estimated to be 30 mmHg. Aortic Valve Trisinus/trileaflet aortic valve. Mild focal aortic valve calcification. Mild-Moderate (1-2+) aortic valve insufficiency. Pulmonic Valve The pulmonic valve is not well visualized. Great Vessels Normal sized aortic root. Pericardium/Pleural No pericardial effusion. MMode/2D Measurements & Calculations LVIDd: 5.1 cm IVSd: 0.99 cm Ao root diam: 2.9 cm LVIDs: 3.5 cm LVPWd: 1.2 cm RVDd: 3.7 cm FS: 31.5 % LAV(MOD-bp): 70.1 ml LA A4 area: 21.0 cm2 LA dimension(2D): 4.4 cm LAV(MOD-bp) Indexed: 41.9 ml/m2 LAV(MOD-sp2): 77.4 ml LAV(MOD-sp4): 62.2 ml RA A4 area: 18.4 cm2 Time Measurements MV dec time: 0.23 sec Doppler Measurements & Calculations MV E max jozef: 143.7 cm/sec Lat Peak E' Jozef: 8.8 cm/sec Med Peak E' Jozef: 4.6 cm/sec MV A max jozef: 180.3 cm/sec E/E' lat: 16.3 E/E' med: 30.9 MV E/A: 0.80 MV V2 max: 144.7 cm/sec Ao V2 max: 166.2 cm/sec AI max jozef: 443.9 cm/sec MV max P.4 mmHg Ao max P.0 mmHg AI max P.9 mmHg MV V2 mean: 101.5 cm/sec Ao V2 mean: 112.9 cm/sec AI dec slope: 348.4 cm/sec2 MV mean P.4 mmHg Ao mean P.8 mmHg AI P1/2t: 373.2 msec MV V2 VTI: 38.1 cm Ao V2 VTI: 34.1 cm LV V1 max: 137.0 cm/sec PA V2 max: 103.8 cm/sec TR max jozef: 256.3 cm/sec LV V1 max P.5 mmHg TR max P.2 mmHg LV V1 mean P.5 mmHg LV V1 mean: 87.8 cm/sec LV V1 VTI: 27.5 cm ECHO/Echo Complete Interpretation Summary The study was technically difficult. Left ventricular systolic function is normal. The estimated ejection fraction is 60 %. The left atrium is mildly enlarged. Stable appearing mechanical mitral valve apparatus. Trivial transvalvular insufficiency of the mitral valve. Mild to moderate (1-2+) tricuspid valve insufficiency. Mild focal aortic valve calcification. Mild-Moderate (1-2+) aortic valve insufficiency. Right ventricular systolic pressure estimated to be 30 mmHg. There is evidence of diastolic dysfunction. ICD or pacer leads identified within the right atrium ICD or pacer leads identified within the right ventricle. Ordering Physician: Samir Medina Referring Physician: Jono Cifuentes Performed By: Jessica Hewitt, KAUSHIK, RVT
== END ==
PROVIDERS: PCP Family Medicine; Referring Provider Internal Medicine Cardiovascular Disease; Visit Provider Internal Medicine Cardiovascular Disease
DX: I48.0 Paroxysmal atrial fibrillation (principal); Z95.2 Presence of prosthetic heart valve
CPT/HCPCS: 93306

== ENCOUNTER → 2020-09-01 | Outpatient (CLI) | payer MEDICARE, MEDICAID, SELFPAY ==
[2020-07-31 15:03] VITALS: BMI 25.2
[2020-09-01 16:47] LABS: International Normalized Ratio 2.3; Prothrombin Time (Protime)PT. 24.6 SECONDS (11.7-14.9)
== END | disposition home or self-care (01) ==
LOC: LABSPEC 16:19
PROVIDERS: PCP Family Medicine; Visit Provider Family Medicine
DX: Z95.2 Presence of prosthetic heart valve (principal)
CPT/HCPCS: 85610

== ENCOUNTER 2020-09-07 11:01 | Day surgery (SDC) | payer MEDICARE, MEDICAID, SELFPAY ==
[2020-07-31 15:03] VITALS: BMI 25.2
[2020-09-07] VITALS (7 sets, daily range): BP systolic 121–146; BP diastolic 61–84; PULSE 60–77; RESP 15–18; TEMP 36.3–37.2; O2SAT 93–97; BMI 26.4
--- NOTE | 2020-09-07 | GASB_PTH ---
PATIENT: JANET CLARKE LOC: EN U#:[id number] AGE/SX: 60/M ROOM: RE09/07/[address]: Dr. Wally Luevano MD : 1960 BED: DIS: 09/07/2020 SPEC #: [id number] RECD: 09/07/20 14:36 STATUS: DEVAUGHN GARLAND #: [id number] SONYA: 09/07/20 00:[address]: Wally Luevano DEPT: SURGICAL PATHOLOGY RECD BY: Robert Casillas ENTERED: 09/08/20 08:11 SP TYPE: Gastric Bx OTHR DR: Dr. Josue Cifuentes MD Tissues: Gastric mucous membrane Procedures: Surgery Specimen Level IV HEADER OPERATION: Colonoscopy, EGD ([facility] [place]) PRE-OP DIAGNOSIS: Heme-positive stool, history of anemia TISSUE SUBMITTED: Antrum biopsy for H. pylori and path MICROSCOPIC DIAGNOSIS Gastric antrum, biopsy: Moderate to severe chronic gastritis with focal active gastritis. Positive for Helicobacter pylori. See comment. AM:clarisa 09/09/2020 COMMENT The results of immunohistochemistry for Helicobacter pylori will be reported separately ([id number]). MICROSCOPIC DESCRIPTION Slides are reviewed. GROSS DESCRIPTION Received in fixative is one container labeled with the patient's name and designated antrum biopsy. The specimen consists of one irregular fragment of light rios soft tissue that measures 0.8 x 0.2 x 0.1 cm. The specimen is totally submitted in one cassette. / SJ:clarisa 09/08/20 TC:2 CPT: 98492
[2020-09-07 11:46] LABS: INR Fingerstick 1.6; Prothrombin Time Fingerstick 18.5 SEC (11.9-14.4)
[2020-09-07] MEDS: Lactated Ringers 1,000 ML 100 ML IV (12:00)
--- NOTE | 2020-09-07 12:26 | HP.PCM_ITS ---
History and Physical Date of Admission: 09/07/20 HISTORY AND PHYSICAL ? Alonso Sharif 1960 ? REFERRING PHYSICIAN: Yennifer Greene MD ? CHIEF COMPLAINT: Consult (EGD) ? HPI: The patient is a 60 year old male referred for endoscopy. Alonso notes he had a recent stool test which was positive for blood. Patient denies any change in bowel habits, weight changes, blood in stools, black tarry stools or abdominal pain. Denies family history of colon issues. The patient NOTES acid reflux. ? Alonso has undergone prior EGDs, most recently in 2017, does not recall having a colonoscopy. ? Patient's past medical history is significant for alcohol abuse-last drink over a year ago, aortic valve defect, atrial fibrillation, s/p mitral valve replacement and pacemaker, cirrhosis, COPD. He is maintained on continuous oral anticoagulation. He follows with Dr. Cifuentes in primary care, Dr. Greene in hematology/oncology, and [facility]. ? Patient denies problems with sedation in the past. ? ? PAST MEDICAL HISTORY PAST MEDICAL HISTORY Diagnosis Date ? Acid reflux ? ? Alcoholism (HCC) ? ? last drink 12/2019 ? Anemia ? ? Anxiety ? ? Aortic valve defect ? ? aortic valve sclerosis-moderate ? Aortic valve insufficiency ? ? Arthritis ? ? Benign neoplasm of colon ? ? BPH (benign prostatic hyperplasia) ? ? Candidiasis of esophagus (HCC) 11/2019 ? Cervical spine fracture (HCC) ? ? Chronic pain ? ? seeing Dr. Sesay pain mgmt ? Cirrhosis (HCC) ? ? COPD (chronic obstructive pulmonary disease) (HCC) ? ? DDD (degenerative disc disease), lumbar ? ? L3-L5 ? Dementia (HCC) ? ? Seeing Dr. Hendricks, possibly 2/2 pain medications ? Depression ? ? Dr. Mclean ? Deviated septum ? ? Diastasis recti ? ? Erectile dysfunction ? ? unable to obtain erection or ejaculate ? Facial fracture (HCC) ? ? GI bleed 06/2013 ? EGD-ulcer. alcohol abuse on coumadin ? H. pylori infection ? ? Hard of hearing ? ? degenerative bone disease seeing Dr. Ching ? High cholesterol ? ? Hypertension ? ? Migraine ? ? MICHELLE (obstructive sleep apnea) ? ? moderate to severe ? Overactive bladder ? ? Seeing Dr. Guillermo ? Pacemaker ? ? Paroxysmal atrial fibrillation (HCC) 11/05/2015 ? Seeing Dr. Medina ? Restless leg syndrome ? ? S/P MVR (mitral valve replacement) ? ? INR goal of 2.5-3 ? Seasonal allergies ? ? Spondylolisthesis ? ? Tubular adenoma of colon 11/2019 ? ? PAST SURGICAL HISTORY PAST SURGICAL HISTORY Procedure Laterality Date ? COLONOSCOP W/ OR W/O BRS SPEC ? 03/15/2012 ? Colonoscopy ? COLONOSCOP W/ OR W/O BRS SPEC ? 10/17/2013 ? Colonoscopy. normal ? EGD W/O BRS SPECIMEN W/BX ? 11/16/2016 ? Diffuse gastritis without obvious source for his major GI bleed-likely related to over anticoagulation and alcohol abuse ? EGD W/O OR W/BRUSH/WASH ? 01/05/11 ? EGD [facility] ? EGD W/O OR W/BRUSH/WASH ? 03/15/2012 ? EGD ? EGD W/O OR W/BRUSH/WASH ? 11/20/2012 [facility] ? EGD ? EGD W/O OR W/BRUSH/WASH ? 03/08/2013 ? EGD ? EGD W/O OR W/BRUSH/WASH ? 06/27/13 ? EGD [facility] inpt ? EGD W/O OR W/BRUSH/WASH ? 09/25/15 ? EGD ([facility]) ? HEART VALVE REPLACEMENT ? 12/28/2009 ? Mitral valve [address] [facility] mechanical ? INGUINAL HERNIA REPAIR HX ? ? ? has had this done 3 times on right side ? INNER EAR SURGERY PROC UNLISTED ? ? ? had two bones replaced in left ear ? PACEMAKER (PM) ? 01/01/2010 ? PAST SURGICAL HISTORY OF ? ? ? sinus surgery ? PAST SURGICAL HISTORY OF ? 01/2016 ? nasal surgery-deviated septum repair ? PAST SURGICAL HISTORY OF ? 2013 ? pins placed in right hip after fracture ? PAST SURGICAL HISTORY OF ? ? ? multiple tooth extractions ? REMOVAL GALLBLADDER ? 1999 ? SHOULDER ARTHROSCOPY/SURGERY Left ? ? x2 ? ? ? CURRENT MEDICATIONS Current Outpatient Medications Medication Sig ? warfarin (COUMADIN) 5 mg tablet Take 10 mg PO Mon, Tu and 12.5 mg all other days ? rOPINIRole (REQUIP) 0.5 mg tablet Take 1 tablet by mouth daily at bedtime. ? donepezil (ARICEPT) 10 mg tablet Take 1 tablet by mouth daily at bedtime. ? ondansetron orally disintegrating (ZOFRAN ODT) 4 mg disintegrating tablet Take 1 tablet by mouth every 6 hours as needed for Nausea/Vomiting. ? docusate sodium (COLACE) 100 mg capsule Take 1 capsule by mouth twice daily as needed for Constipation. ? ascorbic acid, vitamin C, (VITAMIN C) 500 mg tablet Take 2 tablets by mouth twice daily. ? carvedilol (COREG) 3.125 mg tablet Take 1 tablet by mouth twice daily. ? ferrous sulfate 325 mg (65 mg iron) tablet Take 1 tablet by mouth once daily. ? thiamine (VITAMIN B1) 100 mg tablet Take 1 tablet by mouth once daily. ? oxybutynin (DITROPAN) 5 mg tablet Take 1 tablet by mouth three times daily. ? multivitamin (DAILY VITAMIN FORMULA) tablet Take 1 tablet by mouth once daily. ? fluticasone (FLONASE) 50 mcg/actuation nasal spray Use 2 Sprays in each nostril once daily. Rinse mouth after use. ? folic acid 1 mg tablet Take 1 tablet by mouth once daily. ? finasteride (PROSCAR) 5 mg tablet Take 1 tablet by mouth once daily. ? tiotropium (SPIRIVA WITH HANDIHALER) 18 mcg inhalation capsule Inhale 1 capsule as instructed once daily. Use with handihaler. ? furosemide (LASIX) 20 mg tablet Take 3 tablets by mouth once daily. ? Food Supplement, Lactose-Free (ENSURE ORIGINAL) liqd Take 237 mL by mouth three times daily with meals. ? lisinopril (ZESTRIL, PRINIVIL) 10 mg tablet ? ? magnesium oxide (MAG-OX) 400 mg (241.3 mg magnesium) tablet Take 400 mg by mouth twice daily. ? sodium chloride 1 g tab Take 1 g by mouth twice daily. ? omeprazole (PRILOSEC) 40 mg capsule Take 1 capsule by mouth once daily. ? potassium chloride (K-TAB) 10 mEq tablet Take 3 tablets by mouth twice daily. (Patient taking differently: Take 40 mEq by mouth twice daily. ) ? atorvastatin (LIPITOR) 20 mg tablet Take 20 mg by mouth once daily. ? fluticasone propion-salmeterol 113-14 mcg/actuation aepb Inhale 2 Inhalation as instructed twice daily. ? albuterol HFA (VENTOLIN HFA) 90 mcg/actuation inhaler Inhale 2 Puffs as instructed every 4 hours as needed. ? PARoxetine (PAXIL) 40 mg tablet Take 1 tablet by mouth daily at bedtime. Dr. Mclean ? acamprosate DR (CAMPRAL) 333 mg tablet Take 2 tablets by mouth three times daily. Per Dr. Mclean ? traZODone HCl 300 mg tablet Take 1 tablet by mouth daily at bedtime. ? PARoxetine (PAXIL) 10 mg tablet TAKE 1 TABLET BY MOUTH DAILY WITH THE 40MG TO = 50MG TOTAL DOSE Per Dr. Mclean ? hydrOXYzine HCl (ATARAX) 25 mg tablet Take 1 tablet by mouth three times daily as needed for Anxiety. May take 2 tablets at bedtime as needed for sleep Per Dr. Mclean ? COMPOUNDED PRESCRIPTION Compression Stockings, both legs; 20-30 mmHg ICD-10: I87.2 Venous insufficiency ? Cane jorge Quad cane to be used as directed for Dx: unsteady gait and recurrent falls ? COMPOUNDED PRESCRIPTION Right cushion to be used as directed Dx: coccyodynia M53.3 ? COMPOUNDED PRESCRIPTION Toilet rails to be used as directed Dx: recurrent falls at home ? No current facility-administered medications for this visit. ? ? ALLERGIES: Aleve [Naproxen Sodium], Flagyl [Metronidazole Hcl], Ibuprofen, and Seasonal Allergies ? PERSONAL HISTORY: SOCIAL HISTORY Social History ? Tobacco Use ? Smoking status: Current Every Day Smoker ? ? Packs/day: 1.00 ? ? Years: 49.00 ? ? Pack years: 49.00 ? ? Types: Cigarettes ? Smokeless tobacco: Former User ? ? Types: Chew ? ? Quit date: 03/11/2008 ? Tobacco comment: start age 10 Vaping Use ? Vaping Use: Never used Substance Use Topics ? Alcohol use: Yes ? ? Comment: hasn't had a drink in 4 months ? Drug use: Yes ? ? Types: Marijuana ? ? Comment: Smokes 2 joints daily ? FAMILY HISTORY: FAMILY HISTORY FAMILY HISTORY Problem Relation Age of Onset ? Alzheimer's Disease Mother ? ? Breast Cancer Mother ? ? Heart Mother ? ? Heart Father ? ? Stroke Father ? ? Cancer Maternal Grandmother ? ? unknown primary ? Diabetes Brother ? ? Heart Brother ? ? Heart Sister ? ? Hypertension Sister ? ? Thyroid Sister ? ? ? REVIEW OF SYMPTOMS: REVIEW OF SYSTEMS: General: The patient denies fatigue, denies weight loss, NOTES weight gain, denies feeling hot, and denies feelings of cold. Eyes: The patient denies glaucoma, denies eye injury/surgery, does not wear glasses or contacts. Ear/Nose/Throat: The patient NOTES allergies, denies hayfever, denies ear infections, and denies bloody noses. Cardiovascular: The patient denies chest pain, NOTES heart disease, NOTES high blood pressure,denies cardiac stent, denies prior heart attack, denies irregular heart beat, denies high cholesterol, denies poor circulation, denies heart failure, other cardiac issues, denies claudication, NOTES cold feet, denies peripheral arterial stent. Respiratory: The patient denies tuberculosis, denies pneumonia, denies frequent cough, denies pulmonary embolism, NOTES shortness of breath, and denies coughing up blood. Gastrointestinal: The patient denies difficulty swallowing, NOTES acid reflux, denies ulcers, denies vomiting, denies jaundice/hepatitis, NOTES gallbladder problems, NOTES black or tarry stools, NOTES hemorrhoids, denies bleeding from rectum, denies diverticulitis, denies constipation, NOTES diarrhea, denies loss of stool control, and denies hernias. Kidney/Bladder: The patient denies kidney stones, denies urine infections, and denies bloody urine. Skin: The patient denies a history of skin cancer, denies bleeding/changing moles, and denies a history of skin rash. Neurologic: The patient denies a history of epilepsy/convulsions, denies headaches, denies head/spinal injuries, and denies stroke/TIA. Psychiatric: The patient NOTES psychiatric medications, NOTES depression, and denies voices, denies substance abuse. Endocrine: The patient denies thyroid disorders, denies diabetes, and denies hormonal problems. Hematologic: The patient NOTES a history of bruising, denies bleeding, and denies anemia, denies blood clots. Infections: The patient denies a history of measles and mumps, denies rheumatic fever, and denies sexually transmitted diseases. Musculoskeletal: The patient denies back pain/injury, NOTES back problems, denies sciatica, NOTES knee/foot trouble, NOTES arthritis, or denies gout. ? ? When was patient's last Mammogram screening? N/A ? Last Colonoscopy: Unknown ? Lady Mcmullen LPN I have confirmed and edited as necessary, the PFSH and ROS obtained by others. ? PHYSICAL EXAMINATION: ? General: The patient is 60 year old male, well nourished, well hydrated in no acute distress. The patient is oriented to time, place, and person. ? VITALS: Blood pressure 138/72, pulse 78, temperature 36.5 ?C (97.7 ?F), resp. rate (!) 97, height 160 cm (5' 3), weight 64.4 kg (142 lb). Body mass index is 25.15 kg/m?. ? HEENT: Normal cephalic, ataumatic, pupils are equally round, sclera are anicteric, mucous membranes are moist, oropharynx is clear. Neck has no masses, asymmetry or lymphadenopathy. ? Respiratory: Clear to auscultation and percussion. Normal respiratory excursion and pattern. ? Cardiac: Examination is regular rate and rhythm. Normal S1/S2 ? Abdominal exam: Soft, nontender, with no palpable masses. No hepatosplenomegaly. No palpable hernias. ? Extremities: no clubbing, cyanosis or edema. No adenopathy. ? LABORATORY VALUES: As Noted ? RADIOLOGIC STUDIES: As Noted ? ? Assessment IMPRESSION: heme positive stool, history of anemia ? PLAN: I have reviewed my findings with the surgeon. Will plan for upper and lower endoscopy, evaluate for possible esophageal varices. We discussed the risks and benefits of the planned endoscopy. I have informed the patient that complications can occur including failure to complete the endoscopy and perforation. The patient had the opportunity to ask questions concerning the planned endoscopy. My staff has also explained the procedure to the patient in understandable terms and has given the patient printed material concerning the procedure. The patient freely consents to surgery. ? The patient was offered a surgery/procedure at a [facility] facility. I have counseled the patient regarding the risk of exposure to and/or potential harm posed by the COVID-19 virus with having a surgery/procedure at this time versus the risk of? delaying the surgery/procedure. It is not possible to know either the risk of delaying the surgery or procedure or chance of getting an infection with perfect accuracy, but a joint decision was made between the patient and myself?to proceed at this time with endoscopy. ? ? I plan to use Miralax bowel preparation ? We will plan for Monitored Anesthetic Care. ? Request for cardiac clearance and permission to hold anticoagulation was faxed to [facility] ? ? ? Diagnoses: (Z79.01) On continuous oral anticoagulation (primary encounter diagnosis) (K70.30) Alcoholic cirrhosis of liver without ascites (HCC) (D53.9) Macrocytic anemia (R19.5) Occult GI bleeding (F10.20) Alcoholism (HCC) (Z95.0) Pacemaker (Z95.2) History of mitral valve replacement with mechanical valve ? I spent a total of 35 minutes on the date of the service which included preparing to see the patient, [id number] patient care, completing clinical documentation, obtaining and/or reviewing separately obtained history, performing a medically appropriate examination, counseling and educating the patient/family/caregiver, ordering medications, tests, or procedures and communicating with other HCPs (not separately reported). ? Katei Andrade PA-C I have re-examined the patient. There are no clinical changes since date of exam.
--- NOTE | 2020-09-07 12:30 | IMM_PTH ---
PATIENT: JANET CLARKE LOC: EN U#:[id number] AGE/SX: 60/M ROOM: RE09/07/[address]: Dr. Wally Luevano MD : 1960 BED: DIS: 09/07/2020 SPEC #: [id number] RECD: 09/08/20 09:46 STATUS: DEVAUGHN REIsis #: [id number] SONYA: 09/07/20 12:[address]: Wally Luevano DEPT: IMMUNOHISTOCHEMISTRY RECD BY: Candy Max ENTERED: 09/08/20 09:50 SP TYPE: IMMUNO OTHR DR: Dr. Josue Cifuentes MD Tissues: Stomach, NOS Procedures: H Pylori (initial) PHYSICIAN & INSTITUTION [place] [id number] SPECIMEN INFORMATION: Tissue Source: Antrum biopsy Clinical Info: Heme-positive stool, history of anemia Specimen Number: [id number] CPT code: 77557 METHODOLOGY: Deparaffinized sections of prefer/formalin-fixed tissue or PAP/DQ stained slides are incubated with monoclonal/polyclonal antibodies/oligonucleotide probes. Localization is made via biotin free immunoperoxidase method. Appropriate controls are performed and reacted as expected. Results on target cell population are indicated in the following table: RESULTS: ANTIBODY / CLONE RESULT H Pylori (polyclonal) positive These tests were developed and their performance characteristics determined by [facility]. They may not have been cleared or approved by the U.S. Food and Drug Administration. The FDA has determined that such clearance or approval is not necessary. INTERPRETATION: Antrum, biopsy: Positive for Helicobacter pylori organisms. AM:clarisa 09/09/2020
--- NOTE | 2020-09-07 13:09 | OP.CCLET_ITS ---
09/07/2020 Josue Cifuentes Re : Upper GI endoscopy procedure for Alonso Cifuentes This procedure was performed on Monday, September 07, 2020. My impressions and recommendations are as follows: Impressions : - Z-line regular, 40 cm from the incisors. No specimens collected. - Gastritis. Biopsied. - Normal examined duodenum. No specimens collected. Recommendations : - Discharge patient to home. - Resume previous diet. - Continue present medications. - Await pathology results. - Repeat upper endoscopy PRN for surveillance. - Return to physician programs assistant in 1 week. My findings are described in the full procedure note, which is enclosed. If I can be of further assistance, please feel free to contact me at Doctor phone number(s): , Fax: [phone], Work: . Sincerely, MD Wally Najera MD 09/07/2020 1:09:13 PM This report has been signed electronically.
--- NOTE | 2020-09-07 13:09 | OP.EGD_ITS ---
Patient Name: Alonso Sharif Procedure Date: 09/07/2020 12:29 PM Date of : 1960 Age: 60 Procedure: Upper GI endoscopy Indications: Iron deficiency anemia, Occult blood in stool Providers: Wally Luevano MD Medicines: See the Anesthesia note for documentation of the administered medications Patient Profile: This is a 60 year old male. Refer to note in patient chart for documentation of history and physical. Complications: No immediate complications. Procedure: Pre-Anesthesia Assessment: - Prior to the procedure, a History and Physical was performed, and patient medications and allergies were reviewed. The patient's tolerance of previous anesthesia was also reviewed. The risks and benefits of the procedure and the sedation options and risks were discussed with the patient. All questions were answered, and informed consent was obtained. Prior Anticoagulants: The patient has taken Coumadin (warfarin), last dose was 7 days prior to procedure. ASA Grade Assessment: III - A patient with severe systemic disease. After reviewing the risks and benefits, the patient was deemed in satisfactory condition to undergo the procedure. After obtaining informed consent, the endoscope was passed under direct vision. Throughout the procedure, the patient's blood pressure, pulse, and oxygen saturations were monitored continuously. The gastroscope was introduced through the mouth, and advanced to the second part of duodenum. The upper GI endoscopy was accomplished without difficulty. The patient tolerated the procedure well. Scope In: 12:39:52 PM Scope Out: 12:42:24 PM Total Procedure Duration Time 0 hours 2 minutes 32 seconds Findings: The Z-line was regular and was found 40 cm from the incisors. No biopsies or other specimens were collected for this exam. Localized mild inflammation characterized by congestion (edema) and erythema was found in the prepyloric region of the stomach. Biopsies were taken with a cold forceps for Helicobacter pylori testing. The examined duodenum was normal. No biopsies or other specimens were collected for this exam. Impression: - Z-line regular, 40 cm from the incisors. No specimens collected. - Gastritis. Biopsied. - Normal examined duodenum. No specimens collected. Recommendation: - Discharge patient to home. - Resume previous diet. - Continue present medications. - Await pathology results. - Repeat upper endoscopy PRN for surveillance. - Return to physician library assistant in 1 week. Procedure Code(s): --- Professional --- 04950, Esophagogastroduodenoscopy, flexible, transoral; with biopsy, single or multiple Diagnosis Code(s): --- Professional --- K29.70, Gastritis, unspecified, without bleeding D50.9, Iron deficiency anemia, unspecified R19.5, Other fecal abnormalities CPT copyright 2017 [employer]. All rights reserved. The codes documented in this report are preliminary and upon director business integration review may be revised to meet current compliance requirements. MD Wally Najera MD 09/07/2020 1:09:13 PM This report has been signed electronically. Number of Addenda: 0 Note Initiated On: 09/07/2020 12:29 PM
--- NOTE | 2020-09-07 13:14 | OP.COLON_ITS ---
Patient Name: Alonso Sharif Procedure Date: 09/07/2020 12:43 PM Date of : 1960 Age: 60 Procedure: Colonoscopy Indications: Gastrointestinal occult blood loss, Iron deficiency anemia Providers: Wally Luevano MD Medicines: See the Anesthesia note for documentation of the administered medications Patient Profile: This is a 60 year old male. Refer to note in patient chart for documentation of history and physical. Last Colonoscopy: date unknown. Unable to locate last colonoscopy report. Complications: No immediate complications. Procedure: Pre-Anesthesia Assessment: - Prior to the procedure, a History and Physical was performed, and patient medications and allergies were reviewed. The patient's tolerance of previous anesthesia was also reviewed. The risks and benefits of the procedure and the sedation options and risks were discussed with the patient. All questions were answered, and informed consent was obtained. Prior Anticoagulants: The patient has taken Coumadin (warfarin), last dose was 7 days prior to procedure. ASA Grade Assessment: III - A patient with severe systemic disease. After reviewing the risks and benefits, the patient was deemed in satisfactory condition to undergo the procedure. After I obtained informed consent, the scope was passed under direct vision. Throughout the procedure, the patient's blood pressure, pulse, and oxygen saturations were monitored continuously. The colonoscope was introduced through the anus and advanced to the cecum, identified by appendiceal orifice and ileocecal valve. The colonoscopy was performed without difficulty. The patient tolerated the procedure well. The quality of the bowel preparation was good. Scope In: 12:44:46 PM Scope Withdrawal Time 0 hours 6 minutes 57 seconds Scope Out: 12:58:34 PM Total Procedure Duration Time 0 hours 13 minutes 48 seconds Findings: Non-bleeding internal hemorrhoids were found during retroflexion. The hemorrhoids were mild and small. The exam was otherwise without abnormality. Impression: - Non-bleeding internal hemorrhoids. - The examination was otherwise normal. - No specimens collected. Recommendation: - Discharge patient to home. - Resume previous diet. - Continue present medications. - Repeat colonoscopy in 10 years for screening purposes. - Return to physician cafe assistant in 1 week. Procedure Code(s): --- Professional --- 46732, Colonoscopy, flexible; diagnostic, including collection of specimen(s) by brushing or washing, when performed (separate procedure) Diagnosis Code(s): --- Professional --- K64.8, Other hemorrhoids R19.5, Other fecal abnormalities D50.9, Iron deficiency anemia, unspecified CPT copyright 2017 [employer]. All rights reserved. The codes documented in this report are preliminary and upon automotive brake adjuster review may be revised to meet current compliance requirements. MD Wally Najera MD 09/07/2020 1:14:32 PM This report has been signed electronically. Number of Addenda: 0 Note Initiated On: 09/07/2020 12:43 PM
--- NOTE | 2020-09-07 13:15 | OP.CCLET_ITS ---
09/07/2020 Josue Cifuentes Re : Colonoscopy procedure for Alonso Cifuentes This procedure was performed on Monday, September 07, 2020. My impressions and recommendations are as follows: Impressions : - Non-bleeding internal hemorrhoids. - The examination was otherwise normal. - No specimens collected. Recommendations : - Discharge patient to home. - Resume previous diet. - Continue present medications. - Repeat colonoscopy in 10 years for screening purposes. - Return to physician front office medical assistant in 1 week. My findings are described in the full procedure note, which is enclosed. If I can be of further assistance, please feel free to contact me at Doctor phone number(s): , Fax: [phone], Work: . Sincerely, MD Wally Najera MD 09/07/2020 1:14:32 PM This report has been signed electronically.
--- NOTE | 2020-09-07 15:07 | SUR.PHASEII ---
Patient is awaiting ride from neighbor. Expected at 3:30p. Patient VSS and meets discharge criteria.
== END 2020-09-07 15:30 ==
LOC: EN 11:05 → AC 11:10
PROVIDERS: PCP Family Medicine; Referring Provider Family Medicine; Visit Provider Surgery
PROC: 0DJD8ZZ Inspection of Lower Intestinal Tract, Via Natural or Artificial Opening Endoscopic (ICD-10-PCS; CPT 45378; principal; 2020-09-07 12:25)
DX: K29.50 Unspecified chronic gastritis without bleeding (principal); B96.81 Helicobacter pylori [H. pylori] as the cause of diseases classified elsewhere; K29.00 Acute gastritis without bleeding; K64.9 Unspecified hemorrhoids; D50.9 Iron deficiency anemia, unspecified; K21.9 Gastro-esophageal reflux disease without esophagitis; F41.9 Anxiety disorder, unspecified; M19.90 Unspecified osteoarthritis, unspecified site; J44.9 Chronic obstructive pulmonary disease, unspecified; F03.90 Unspecified dementia, unspecified severity, without behavioral disturbance, psychotic disturbance, mood disturbance, and anxiety; F32.9 Major depressive disorder, single episode, unspecified; E78.00 Pure hypercholesterolemia, unspecified; I10 Essential (primary) hypertension; G47.33 Obstructive sleep apnea (adult) (pediatric); I48.0 Paroxysmal atrial fibrillation; F17.210 Nicotine dependence, cigarettes, uncomplicated; Z95.0 Presence of cardiac pacemaker; Z79.01 Long term (current) use of anticoagulants; Z79.899 Other long term (current) drug therapy; Z20.822 Contact with and (suspected) exposure to COVID-19
CPT/HCPCS: 43239; 45378; 36416; 85610; 87426; 88305; 88342; J7120; J2405

== ENCOUNTER → 2020-09-08 | Outpatient (CLI) | payer MEDICARE, MEDICAID, SELFPAY ==
[2020-09-07 11:45] VITALS: BMI 26.4
[2020-09-08 17:20] LABS: International Normalized Ratio 1.1; Prothrombin Time (Protime)PT. 13.3 SECONDS (11.7-14.9)
== END | disposition home or self-care (01) ==
PROVIDERS: Visit Provider Family Medicine
DX: Z95.2 Presence of prosthetic heart valve (principal)
CPT/HCPCS: 85610

== ENCOUNTER → 2020-09-14 14:54 | Outpatient (CLI) | payer MEDICARE, MEDICAID, SELFPAY ==
[2020-09-07 11:45] VITALS: BMI 26.4
[2020-09-14 15:32] LABS: International Normalized Ratio 1.8; Prothrombin Time (Protime)PT. 20.3 SECONDS (11.7-14.9)
== END ==
PROVIDERS: PCP Family Medicine; Referring Provider Family Medicine; Visit Provider Family Medicine
DX: Z95.2 Presence of prosthetic heart valve (principal)
CPT/HCPCS: 85610

== ENCOUNTER → 2020-09-18 15:00 | Outpatient (CLI) | payer MEDICARE, MEDICAID, SELFPAY ==
[2020-09-07 11:45] VITALS: BMI 26.4
[2020-09-18 15:37] LABS: International Normalized Ratio 2.3; Prothrombin Time (Protime)PT. 24.9 SECONDS (11.7-14.9)
== END ==
PROVIDERS: PCP Family Medicine; Visit Provider Family Medicine
DX: Z95.2 Presence of prosthetic heart valve (principal)
CPT/HCPCS: 85610

== ENCOUNTER → 2020-09-21 | Outpatient (CLI) | payer MEDICARE, MEDICAID, SELFPAY ==
[2020-09-07 11:45] VITALS: BMI 26.4
[2020-09-21 16:21] LABS: International Normalized Ratio 3.4; Prothrombin Time (Protime)PT. 33.1 SECONDS (11.7-14.9)
== END | disposition home or self-care (01) ==
LOC: LABSPEC 15:10
PROVIDERS: PCP Family Medicine; Visit Provider Family Medicine
DX: Z95.2 Presence of prosthetic heart valve (principal)
CPT/HCPCS: 85610

== ENCOUNTER → 2020-09-24 | Outpatient (CLI) | payer MEDICARE, MEDICAID, SELFPAY ==
[2020-09-07 11:45] VITALS: BMI 26.4
[2020-09-24 15:22] LABS: International Normalized Ratio 3.2; Prothrombin Time (Protime)PT. 32.2 SECONDS (11.7-14.9)
== END | disposition home or self-care (01) ==
LOC: LABSPEC 15:02
PROVIDERS: PCP Family Medicine; Visit Provider Family Medicine
DX: Z95.2 Presence of prosthetic heart valve (principal)
CPT/HCPCS: 85610

== ENCOUNTER 2020-11-10 20:44 | Inpatient (IN) | payer MEDICARE, MEDICAID, SELFPAY ==
[2020-09-07 11:45] VITALS: BMI 26.4
[2020-11-10 20:45] VITALS: PULSE 91; RESP 16; O2SAT 99
[2020-11-10 20:47] VITALS: BP 139/84; PULSE 96; RESP 16; TEMP 36.9; O2SAT 100; BMI 22.7
[2020-11-10 20:53] VITALS: BP 139/84; PULSE 96; RESP 16; TEMP 37.1; O2SAT 100
--- NOTE | 2020-11-10 21:20 | EDS_ITS ---
HPI History of Present Illness Chief Complaint: Substance Abuse Informant: patient Narrative Narrative: Patient here for system with alcohol. Daily drinker for years. He states drinks a 12 pack a day today had 3 or 4 last time 1 hour ago. States he smokes marijuana daily. Denies any suicidal homicidal ideations. He states he has morning tremors, he states he has had withdrawal seizures in the past. He cannot remember when the last one was. He last got help 4 months ago however relapsed September 26. History of paroxysmal atrial fibrillation on warfarin. He does have a pacemaker. Prior similar symptoms: Yes PFSH PFS Medical History Alcohol use Alcoholic cirrhosis Alcoholism /alcohol abuse Ambulates with cane Anxiety Arthritis Blackout BPH (benign prostatic hyperplasia) Bruising Cardiology follow-up encounter Chronic cough COPD (chronic obstructive pulmonary disease) Dementia Depression Easy bruising Essential hypertension Excessive bleeding Gastric reflux High cholesterol History of GI bleed History of pacemaker History of wrist fracture HTN (hypertension) Hyperlipidemia Injury of back Injury of head and neck Marijuana use Neuropathy Nonrheumatic aortic (valve) insufficiency Paroxysmal atrial fibrillation Presence of permanent cardiac pacemaker Prostate disease Shortness of breath on exertion Smoker Wears dentures Wears glasses Wears hearing aid Home Medications carvedilol 3.125 mg PO BID 08/18/17 [History Last Taken 05/12/20] ferrous sulfate 325 mg PO DAILY 08/18/17 [History Last Taken 05/12/20] finasteride 5 mg PO DAILY 08/18/17 [History Last Taken 05/12/20] oxybutynin chloride 5 mg tablet 5 mg PO TID tab 11/29/18 [History Last Taken 05/12/20] acamprosate 333 mg tablet,delayed release 2 tab PO TID tab 12/06/19 [History Last Taken 05/12/20] ascorbic acid (vitamin C) 1,000 mg PO BID 01/12/20 [History Last Taken 05/12/20] warfarin 10 mg PO QHS 01/12/20 [History Last Taken 09/03/20] docusate sodium 100 mg PO BID 05/13/20 [History Last Taken 05/12/20] lisinopril 10 mg PO DAILY 05/13/20 [History Last Taken 05/12/20] omeprazole 40 mg PO DAILY 05/13/20 [History Last Taken 05/12/20] trazodone 300 mg PO QHS 05/13/20 [History Last Taken 05/12/20] furosemide 20 mg tablet 20 mg PO DAILY #90 tablet 07/16/20 [Rx Last Taken Unknown] enoxaparin [Lovenox] 60 mg SUBCUT DAILY 09/04/20 [History Last Taken Unknown] pregabalin 100 mg PO QHS 09/04/20 [History Last Taken Unknown] hydroxyzine HCl 25 mg PO TID PRN 11/10/20 [History Last Taken Unknown] Allergy/AdvReac Type Severity Reaction Status Date / Time ibuprofen AdvReac Upset Verified 09/04/20 14:44 Stomach metronidazole AdvReac Upset Verified 09/04/20 14:44 Stomach naproxen [From Aleve] AdvReac gi upset Verified 09/04/20 14:44 Family History Mother Heart disease Father Heart disease CVA (cerebral vascular accident) Brother Heart disease Diabetes Sister Heart disease Surgical History H/O mitral valve replacement with mechanical valve (~2009) History of ankle surgery History of arthroscopy of left shoulder History of cholecystectomy History of hernia repair History of hip surgery History of sinus surgery Status post mitral valve replacement (~2009) Social History Smoking Status: Current every day smoker tobacco type: cigarettes alcohol intake: former year quit: 2017 substance use type: does not use ROS ROS ED Constitutional Constitutional ED: Denies chills, fever(s) or sweats Eyes Eyes: Denies change in vision ENT ENT ED: Denies dysphagia or sore throat Cardiovascular Cardiovascular: Denies chest pain, leg edema, palpitations or racing heartbeat Respiratory/Chest Respiratory/Chest: Denies cough, dyspnea or dyspnea on exertion Gastrointestinal Gastrointestinal: Reports nausea; Denies abdominal pain, diarrhea or vomiting Genitourinary Genitourinary ED: Denies dysuria, hematuria or urinary frequency Musculoskeletal Musculoskeletal: Denies back pain, extremity pain or neck pain Integumentary Denies rash or wounds Neurologic Neurologic: Denies headache(s), paresthesias or weakness Psychiatric Psychiatric: Denies suicidal ideation or suicidal thoughts EXAM Physical Exam Const Vital Signs: 11/10/20 20:45 11/10/20 20:47 11/10/20 20:53 Temperature 98.4 F 98.7 F Temperature Source Temporal Temporal Pulse Rate 91 96 96 Respiratory Rate 16 16 16 Blood Pressure 139/84 H 139/84 H Blood Pressure Mean 102 102 Pulse Ox 99 100 100 Oxygen Delivery Method Room Air Room Air Slight somnolence however would awaken and answer questions appropriately. Positive well nourished and well developed General Appearance ED: well developed and NAD HEENT Reports moist mucous membranes normocephalic and atraumatic Eyes PERRL, EOMs intact bilaterally and conjunctivae normal General Eye ED: Yes normal appearance of both eyes Neck no lymphadenopathy and supple General: Negative for tenderness Chest Wall Chest Narrative: Right upper chest pacemaker device. Chest: Negative for tenderness Resp normal respiratory effort and normal air movement Effort and Inspection: symmetric chest movement; Negative for respiratory distress Cardio regular rate, regular rhythm and no murmurs Peripheral Pulses: pulses 2+ throughout GI normal to inspection, nondistended, normoactive bowel sounds and non-tender Palpation: Negative for guarding or rebound tenderness present Back/Spine no CVA tenderness and no thoracic nor lumbar tenderness Extremity normal to inspection General Extremety ED: Negative for edema or tenderness General Extremity: Negative for edema Neuro oriented x3 and no sensory deficits noted Sensorium / Orientation: awake and alert Skin no rashes or lesions noted and no wounds MDM MDM MDM Narrative Medical decision making narrative: Patient cooperative requesting assistance with alcohol. He is not suicidal homicidal. Medical clearance labs obtain sodium returned at 2.6 magnesium added was normal. Potassium replacement given. Alcohol 321. Tox screen is pending. INR subtherapeutic at 1.1. I discussed with hospitalist team for admission to assist with alcohol per patient's reque st. Lab Data Attestation: I reviewed the patient's lab results. Labs: Laboratory Results - last 24 hr 11/10/20 11/10/20 11/10/20 21:46 21:46 21:46 WBC 4.9 RBC 4.23 L Hgb 14.4 Hct 40.4 MCV 95.5 H MCH 34.0 H MCHC 35.6 RDW Std Deviation 51.8 H RDW Coeff of Harjeet 15.0 H Plt Count 136 L MPV 9.6 Immature Gran % (Auto) 0.400 Neut % (Auto) 59.6 Lymph % (Auto) 27.4 [place] % (Auto) 10.1 H Eos % (Auto) 2.1 Baso % (Auto) 0.4 Absolute Neuts (auto) 2.9 Absolute Lymphs (auto) 1.33 Nucleated RBC % 0 PT INR Sodium 138 Potassium 2.6 L* Chloride 101 Carbon Dioxide 29.0 Anion Gap 8 BUN 1 L Creatinine 0.57 L Estim Creat Clear Calc 112.51 Est GFR (MDRD) Af Amer 185 Est GFR (MDRD) Non-Af 153 BUN/Creatinine Ratio 1.8 L Glucose 82 Calcium 8.2 L Magnesium Ethyl Alcohol 321.0 H* 11/10/20 11/10/20 21:46 21:46 WBC RBC Hgb Hct MCV MCH MCHC RDW Std Deviation RDW Coeff of Harjeet Plt Count MPV Immature Gran % (Auto) Neut % (Auto) Lymph % (Auto) [place] % (Auto) Eos % (Auto) Baso % (Auto) Absolute Neuts (auto) Absolute Lymphs (auto) Nucleated RBC % PT 13.1 INR 1.1 Sodium Potassium Chloride Carbon Dioxide Anion Gap BUN Creatinine Estim Creat Clear Calc Est GFR (MDRD) Af Amer Est GFR (MDRD) Non-Af BUN/Creatinine Ratio Glucose Calcium Magnesium 2.0 Ethyl Alcohol EKG Initial EKG: Attestation: I personally reviewed and interpreted this EKG as follows: Comments: Atrial sensed ventricular paced at 89, no ST or T wave changes. Discharge Plan Triage Chief Complaint: Substance Abuse ED Provider: Gonzalo Mir Dx/Rx/DC Orders Clinical Impression: Alcohol dependence, Paroxysmal atrial fibrillation, Acute hypokalemia, Subtherapeutic international normalized ratio (INR) Prescriptions: No Action carvedilol 3.125 MG tablet 3.125 mg PO BID RF: 0 ferrous sulfate 325 MG tablet 325 mg PO DAILY RF: 0 finasteride 5 MG tablet 5 mg PO DAILY RF: 0 ascorbic acid (vitamin C) 500 MG tablet 1,000 mg PO BID RF: 0 warfarin 5 MG tablet 10 mg PO QHS RF: 0 omeprazole 40 MG capsule,delayed release(DR/EC) 40 mg PO DAILY RF: 0 trazodone 300 MG tablet 300 mg PO QHS RF: 0 docusate sodium 100 MG capsule 100 mg PO BID RF: 0 lisinopril 10 MG tablet 10 mg PO DAILY RF: 0 pregabalin 100 mg Capsule 100 mg PO QHS RF: 0 enoxaparin [Lovenox] 60 mg/0.6 mL Syringe 60 mg SUBCUT DAILY RF: 0 hydroxyzine HCl 25 mg Tablet 25 mg PO TID PRN (Reason: Anxiety) RF: 0 oxybutynin chloride 5 mg tablet 5 mg PO TID RF: 0 acamprosate 333 mg tablet,delayed release (DR/EC) 2 tab PO TID RF: 0 furosemide 20 mg tablet 20 mg PO DAILY Qty: 90 RF: 3 Primary Care Provider: Josue Cifuentes Referrals: Josue Cifuentes MD [Primary Care Provider] - Disposition Disposition: Acute Care Hospital [facility]
[2020-11-10] MEDS: Ondansetron 4 MG/2 ML Vial IV (21:51)
[2020-11-10 21:56] LABS: Absolute Lymphocyte Count 1.33 X10^3/uL (0.83-4.51); Absolute Neutrophil Count 2.9 X10^3/uL (2.0-7.7); Basophil# 0.02 X10^3/uL; Basophil% 0.4 % (0-1); Eosinophils% 2.1 % (0-5); Hematocrit 40.4 % (40-54); Hemoglobin 14.4 g/dL (13.0-16.5); Lymphocyte # 1.33 X10^3/ul (0.83-4.51); Lymphocyte % 27.4 % (19-41); Mean Corp Hgb Conc 35.6 g/dL (32-36); Mean Corpuscular Volume 95.5 fL (80-94); Mean Platelet Vol. 9.6 fl (6.2-12.0); Monocyte# 0.49 X10^3/uL; Monocyte% 10.1 % (0-10); NRBC Flagged by Analyzer 0 % (0-5); Neutrophil % 59.6 % (47-70); Platelet Count 136 K/mm3 (150-450); RBC Distribution Width SD 51.8 fl (35.1-43.9); Red Blood Count 4.23 M/mm3 (4.6-6.2); White Blood Count 4.9 K/mm3 (4.4-11.0)
[2020-11-10 22:06] LABS: International Normalized Ratio 1.1; Prothrombin Time (Protime)PT. 13.1 SECONDS (11.7-14.9)
[2020-11-10 22:17] LABS: Anion Gap 8 (5-15); BUN 1 mg/dL (7-18); BUN/Creat Ratio 1.8 RATIO (10-20); Calcium,Total 8.2 mg/dL (8.5-10.1); Chloride 101 mmol/L (98-107); Creatinine, Serum 0.57 mg/dL (0.70-1.30); EST Glomerular Filtration Rate 153 mL/min (>60); Est Glom Filt Rate - Afr Amer 185 mL/min (>60); Estimated Creatinine Clearance 112.51 ml/min; Glucose 82 mg/dL (74-106); Potassium 2.6 mmol/L (3.5-5.1); Sodium Level 138 mmol/L (136-145)
--- NOTE | 2020-11-10 22:33 | EKG12_ITS ---
Test Reason : DYSRHYTHMIA Blood Pressure : / mmHG Vent. Rate : 089 BPM Atrial Rate : 089 BPM P-R Int : 174 ms QRS Dur : 130 ms QT Int : 404 ms P-R-T Axes : 063 066 034 degrees QTc Int : 491 ms Atrial-sensed ventricular-paced rhythm Abnormal ECG Confirmed by MERLINE CORBETT, JALEEL ([id number]), publication editor JONNATHAN MERCEDES ([id number]) on 11/11/2020 1:48:46 PM Referred By: TL Confirmed By:JALEEL RICK MD
[2020-11-10] MEDS: Potassium Chloride Oral Tablet 20 MEQ 60 MEQ PO (22:37)
[2020-11-10 23:16] VITALS: BP 144/75; PULSE 78; PULSE 94; RESP 17; TEMP 36.9; O2SAT 98
--- NOTE | 2020-11-10 23:47 | PCM.HP.STD ---
Documented by User: BALBIR Nolasco 11/11/20 00:14 HPI - General General Date of Admission: 11/10/20 Date of Service: 11/10/20 Chief Complaint: Desire for detoxification from alcohol HPI Narrative JANET CLARKE, is a 60 M who presents with desire to detox from alcohol. Patient was last admitted in May 2020 for detox. Patient states that he was sober until September 27 and has continuously been drinking 10-12 beers a day since then. Patient states that he has a history of withdrawal seizures. Patient also has a pacemaker and a mechanical mitral valve but states he has not been taking his medications appropriately. Patient reports nausea. Patient denies fever, chills, shortness of breath, cough, chest pain, vomiting, diarrhea, constipation. FORMERLY [facility] Medical History Alcohol use Alcoholic cirrhosis Alcoholism /alcohol abuse Ambulates with cane Anxiety Arthritis Blackout BPH (benign prostatic hyperplasia) Bruising Cardiology follow-up encounter Chronic cough COPD (chronic obstructive pulmonary disease) Dementia Depression Easy bruising Essential hypertension Excessive bleeding Gastric reflux High cholesterol History of GI bleed History of pacemaker History of wrist fracture HTN (hypertension) Hyperlipidemia Injury of back Injury of head and neck Marijuana use Neuropathy Nonrheumatic aortic (valve) insufficiency Paroxysmal atrial fibrillation Presence of permanent cardiac pacemaker Prostate disease Shortness of breath on exertion Smoker Wears dentures Wears glasses Wears hearing aid Home Medications carvedilol 3.125 mg PO BID 08/18/17 [History Last Taken 05/12/20] ferrous sulfate 325 mg PO DAILY 08/18/17 [History Last Taken 05/12/20] finasteride 5 mg PO DAILY 08/18/17 [History Last Taken 05/12/20] oxybutynin chloride 5 mg tablet 5 mg PO TID tab 11/29/18 [History Last Taken 05/12/20] acamprosate 333 mg tablet,delayed release 2 tab PO TID tab 12/06/19 [History Last Taken 05/12/20] ascorbic acid (vitamin C) 1,000 mg PO BID 01/12/20 [History Last Taken 05/12/20] warfarin 10 mg PO QHS 01/12/20 [History Last Taken 09/03/20] docusate sodium 100 mg PO BID 05/13/20 [History Last Taken 05/12/20] lisinopril 10 mg PO DAILY 05/13/20 [History Last Taken 05/12/20] omeprazole 40 mg PO DAILY 05/13/20 [History Last Taken 05/12/20] trazodone 300 mg PO QHS 05/13/20 [History Last Taken 05/12/20] furosemide 20 mg tablet 20 mg PO DAILY #90 tablet 07/16/20 [Rx Last Taken Unknown] enoxaparin [Lovenox] 60 mg SUBCUT DAILY 09/04/20 [History Last Taken Unknown] pregabalin 100 mg PO QHS 09/04/20 [History Last Taken Unknown] hydroxyzine HCl 25 mg PO TID PRN 11/10/20 [History Last Taken Unknown] Allergy/AdvReac Type Severity Reaction Status Date / Time ibuprofen AdvReac Upset Verified 09/04/20 14:44 Stomach metronidazole AdvReac Upset Verified 09/04/20 14:44 Stomach naproxen [From Aleve] AdvReac gi upset Verified 09/04/20 14:44 Family History Mother Heart disease Father Heart disease CVA (cerebral vascular accident) Brother Heart disease Diabetes Sister Heart disease Surgical History H/O mitral valve replacement with mechanical valve (~2009) History of ankle surgery History of arthroscopy of left shoulder History of cholecystectomy History of hernia repair History of hip surgery History of sinus surgery Status post mitral valve replacement (~2009) Social History Smoking Status: Current every day smoker tobacco type: cigarettes alcohol intake: former year quit: 2017 substance use type: does not use ROS Constitutional Constitutional: Denies anorexia, chills, fatigue, fever(s) or weakness Cardiovascular Cardiovascular: Denies chest pain, edema or palpitations Respiratory/Chest Respiratory/Chest: Denies cough, shortness of breath at rest, shortness of breath with exertion or wheezing Gastrointestinal Gastrointestinal: Reports nausea; Denies abdominal pain, constipation, diarrhea or vomiting Genitourinary Genitourinary: Denies dysuria Musculoskeletal Musculoskeletal: Denies back pain, extremity pain, joint pain or joint stiffness Integumentary Integumentary: Denies dry skin Neurologic Neurologic: Denies abnormal gait, abnormal speech, confusion, dizziness, focal weakness or headache(s) Psychiatric Psychiatric: Denies anxiety or depression Endocrine Endocrinology: Denies change in body appearance Hematologic/Lymphatic Hematologic/Lymphatic: Denies easy bleeding or easy bruising Vital Signs Vital Signs Vital Signs: 11/10/20 20:45 11/10/20 20:47 11/10/20 20:53 Temperature 98.4 F 98.7 F Temperature Source Temporal Temporal Pulse Rate 91 96 96 Respiratory Rate 16 16 16 Blood Pressure 139/84 H 139/84 H Blood Pressure Mean 102 102 Pulse Ox 99 100 100 Oxygen Delivery Method Room Air Room Air 11/10/20 23:16 Temperature 98.4 F Temperature Source Temporal Pulse Rate 78 Respiratory Rate 17 Blood Pressure 144/75 H Blood Pressure Mean 98 Pulse Ox 98 Oxygen Delivery Method Room Air Weight Weight: 132 lb 7.965 oz Body Mass Index (BMI) 22.7 Physical Exam Const alert, oriented x3 and no apparent distress General Appearance: cooperative HEENT normocephalic and head/scalp atraumatic Eyes conjunctivae normal and no scleral icterus Neck supple and no JVD General: trachea midline Resp normal respiratory effort, normal air movement and clear to auscultation bilaterally Auscultation: wheezes expiratory wheezes and scattered wheezes Cardio regular rate, regular rhythm, S1 normal heart sound and S2 normal heart sound Peripheral Pulses: pulses 2+ throughout GI normal to inspection, nondistended, normoactive bowel sounds, soft to palpation and non-tender Extremity normal capillary refill and no clubbing, cyanosis or edema General Extremity: no tenderness to palpation of joints or extremities Skin General Skin Exam: no breakdown and turgor normal Lesions: no lesions Rashes: no rashes Neuro no focal motor deficits and no sensory deficits noted Speech: speech normal Motor Exam: Negative for general weakness Psych thought process normal, cooperative and affect normal Appearance: appropriate Results Lab / Micro Data Result Diagrams: 11/10/20 21:46 11/10/20 21:46 Labs: Laboratory Results - last 24 hr 11/10/20 21:46: WBC 4.9, RBC 4.23 L, Hgb 14.4, Hct 40.4, MCV 95.5 H, MCH 34.0 H, MCHC 35.6, RDW Std Deviation 51.8 H, RDW Coeff of Harjeet 15.0 H, Plt Count 136 L, MPV 9.6, Immature Gran % (Auto) 0.400, Neut % (Auto) 59.6, Lymph % (Auto) 27.4, [place] % (Auto) 10.1 H, Eos % (Auto) 2.1, Baso % (Auto) 0.4, Absolute Neuts (auto) 2.9, Absolute Lymphs (auto) 1.33, Nucleated RBC % 0 11/10/20 21:46: Sodium 138, Potassium 2.6 L*, Chloride 101, Carbon Dioxide 29.0, Anion Gap 8, BUN 1 L, Creatinine 0.57 L, Estim Creat Clear Calc 112.51, Est GFR (MDRD) Af Amer 185, Est GFR (MDRD) Non-Af 153, BUN/Creatinine Ratio 1.8 L, Glucose 82, Calcium 8.2 L 11/10/20 21:46: Ethyl Alcohol 321.0 H* 11/10/20 21:46: PT 13.1, INR 1.1 11/10/20 21:46: Magnesium 2.0 Assessment & Plan Assessment/Plan (1) Acute alcohol withdrawal: (2) H/O mitral valve replacement with mechanical valve: (3) Acute hypokalemia: PLAN: 1. Acute alcohol withdrawal -Phenobarbital taper ordered along with supportive medications -Case management consulted to coordinate with 180 for outpatient follow-up -Seizure precautions ordered due to patient history withdrawal seizure 2. Acute hypokalemia -Initial potassium level 2.6 on arrival, potassium chloride 60 mEq p.o. x1 given in ER -Will repeat BMP in a.m. -Likely secondary to chronic alcohol use -CBC and BMP ordered daily 3. Subtherapeutic INR -Patient reports he has not been taking his medications properly and has not been taking Lovenox at all -Daily PT/INR ordered -Therapeutic Lovenox n.p.o. warfarin ordered 4. Hypertension -Continue home medication regimen including furosemide, lisinopril, carvedilol. -Vital signs per protocol, trend BP and heart rate 5. BPH -Continue home medication regimen -Patient not experiencing urinary retention at this time 6. History of mitral valve replacement with mechanical valve -Subtherapeutic INR, patient not taking his medications as ordered. 7. Presence of pacemaker DVT prophylaxis-SCDs, patient receiving warfarin and therapeutic Lovenox This patient was seen by BALBIR Nolasco under the supervision of Dr. Menon. Documented by User: Dr. Fady Menon MD 11/11/20 01:09 HPI - General General Date of Admission: 11/10/20 FOR[facility]LY [facility] Medical History Alcohol use Alcoholic cirrhosis Alcoholism /alcohol abuse Ambulates with cane Anxiety Arthritis Blackout BPH (benign prostatic hyperplasia) Bruising Cardiology follow-up encounter Chronic cough COPD (chronic obstructive pulmonary disease) Dementia Depression Easy bruising Essential hypertension Excessive bleeding Gastric reflux High cholesterol History of GI bleed History of pacemaker History of wrist fracture HTN (hypertension) Hyperlipidemia Injury of back Injury of head and neck Marijuana use Neuropathy Nonrheumatic aortic (valve) insufficiency Paroxysmal atrial fibrillation Presence of permanent cardiac pacemaker Prostate disease Shortness of breath on exertion Smoker Wears dentures Wears glasses Wears hearing aid Home Medications carvedilol 3.125 mg PO BID 08/18/17 [History Last Taken 05/12/20] ferrous sulfate 325 mg PO DAILY 08/18/17 [History Last Taken 05/12/20] finasteride 5 mg PO DAILY 08/18/17 [History Last Taken 05/12/20] oxybutynin chloride 5 mg tablet 5 mg PO TID tab 11/29/18 [History Last Taken 05/12/20] acamprosate 333 mg tablet,delayed release 2 tab PO TID tab 12/06/19 [History Last Taken 05/12/20] ascorbic acid (vitamin C) 1,000 mg PO BID 01/12/20 [History Last Taken 05/12/20] warfarin 10 mg PO QHS 01/12/20 [History Last Taken 09/03/20] docusate sodium 100 mg PO BID 05/13/20 [History Last Taken 05/12/20] lisinopril 10 mg PO DAILY 05/13/20 [History Last Taken 05/12/20] omeprazole 40 mg PO DAILY 05/13/20 [History Last Taken 05/12/20] trazodone 300 mg PO QHS 05/13/20 [History Last Taken 05/12/20] furosemide 20 mg tablet 20 mg PO DAILY #90 tablet 07/16/20 [Rx Last Taken Unknown] enoxaparin [Lovenox] 60 mg SUBCUT DAILY 09/04/20 [History Last Taken Unknown] pregabalin 100 mg PO QHS 09/04/20 [History Last Taken Unknown] hydroxyzine HCl 25 mg PO TID PRN 11/10/20 [History Last Taken Unknown] Allergy/AdvReac Type Severity Reaction Status Date / Time ibuprofen AdvReac Upset Verified 09/04/20 14:44 Stomach metronidazole AdvReac Upset Verified 09/04/20 14:44 Stomach naproxen [From Aleve] AdvReac gi upset Verified 09/04/20 14:44 Family History Mother Heart disease Father Heart disease CVA (cerebral vascular accident) Brother Heart disease Diabetes Sister Heart disease Surgical History H/O mitral valve replacement with mechanical valve (~2009) History of ankle surgery History of arthroscopy of left shoulder History of cholecystectomy History of hernia repair History of hip surgery History of sinus surgery Status post mitral valve replacement (~2009) Social History Smoking Status: Current every day smoker tobacco type: cigarettes alcohol intake: former year quit: 2017 substance use type: does not use Results Lab / Micro Data Result Diagrams: 11/10/20 21:46 11/10/20 21:46 Charges/Coding Addendum Addendum: Patient was seen and examined independently. I agree with assessment and plan by BALBIR Nolasco. Patient is 60-year-old male with a significant history of atrial fibrillation; history of prosthetic mitral valve and alcoholism who presents intoxicated and asking for help with alcohol detoxification. He reported that he resume drinking about a month and a half ago. He has been drinking since he was age 13. Last time he drank was reportedly a few hours before presentation. Physical exam: General: Edentulous; Murmuring Head: Normocephalic, atraumatic, no tenderness Eyes: PERRLA, EOMI ENT, no trauma, moist mucous membranes, no rhinorrhea Neck: Nontender, full range of motion, no spinal tenderness, deformities, step-off CVS: Regular rate and rhythm Respiratory no acute distress, clear to auscultation bilaterally, chest wall nontender, no wheezing Abdomen: Soft, nontender, nondistended, normal bowel sounds, no masses : Deferred Back: Nontender, no CVA tenderness, no midline spinal tenderness, deformities, step-offs Extremities: Nontender full range of motion, no trauma Skin: Normal color, no trauma, abrasions Neuro: Alert, oriented, cranial nerves II through XII grossly intact. Psychiatry: Normal mood. Normal affect. Not depressed. Not anxious. Assessment and plan Alcohol dependence and desire for detoxification Patient be started on phenobarbital and other adjunctive medications: Gabapentin as needed; dicyclomine as needed; Vistaril as needed; Imodium as needed; trazodone as needed; Zofran as needed; scheduled thiamine; and schedule folic acid. Hold home acamprosate Monitor CIWA score Tobacco abuse Counseled Declined nicotine patch History of mitral valve replacement with subtherapeutic INR. Patient came with Lovenox shots for which he he admitted adjusting been taking. Bridge Coumadin with Lovenox. Trend INR. Hypokalemia Received replacement at the emergency department. Will trend BMP. 40 mg of potassium daily. Review of labs showed normal magnesium. History of diastolic heart failure Stable Echocardiogram on 08/11/2020 showed an ejection fraction of 60% and with evidence of diastolic function. Echocardiogram dating back to 2013 showed normal EF. Lasix continued. Hypertension Blood pressure is not within goal Lasix; Lisinopril and Carvedilol continued. Trend blood pressure and adjust blood pressure medications. DVT prophylaxis Continue Lovenox and warfarin as above. Visit Charges Inpatient E&M: 30788 Init Hosp L3
[2020-11-11] VITALS (13 sets, daily range): BP systolic 102–153; BP diastolic 53–76; PULSE 80–104; RESP 16–20; TEMP 36–37.5; O2SAT 92–100; BMI 22.2
[2020-11-11 00:51] LABS: Amphetamine Urine VISTA NEGATIVE (<1000 ng/mL); Barbiturate Urine VISTA NEGATIVE (< 200 ng/mL); Benzodiazepine Urine VISTA NEGATIVE (< 200 ng/mL); Cocaine Urine VISTA NEGATIVE (< 300 ng/mL); Ecstacy Urine VISTA NEGATIVE (< 500 ng/mL); Methadone Urine VISTA NEGATIVE (< 300 ng/mL); PCP Urine VISTA NEGATIVE (< 25 ng/mL); THC Urine VISTA POSITIVE (< 50 ng/mL); Vista UDS pH Range 7
[2020-11-11] MEDS: Phenobarbital 32.4 MG Tablet 64.8 MG PO ×6 (00:51→20:39)
[2020-11-11] MEDS: Ondansetron 8 MG Tablet PO (00:51)
[2020-11-11] MEDS: 0.9% Saline Lock 10 ML Syringe IV ×2 (00:51→20:42)
[2020-11-11] MEDS: Dicyclomine 10 MG Capsule 20 MG PO ×3 (00:52→20:41)
[2020-11-11] MEDS: hydrOXYzine PAM 25 MG Capsule 50 MG PO ×3 (00:52→20:42)
[2020-11-11] MEDS: Gabapentin 300 MG Capsule PO ×3 (00:52→16:30)
[2020-11-11] MEDS: traZODone 100 MG Tablet PO ×2 (00:52→20:41)
--- NOTE | 2020-11-11 02:30 | NURSING ---
Pandemic Documentation 11/11/2020 0020
[2020-11-11] MEDS: Oxybutynin 5 MG Tablet PO ×3 (04:35→20:40)
[2020-11-11 05:08] LABS: Absolute Lymphocyte Count 1.41 X10^3/uL (0.83-4.51); Absolute Neutrophil Count 2.8 X10^3/uL (2.0-7.7); Basophil# 0.03 X10^3/uL; Basophil% 0.6 % (0-1); Eosinophils% 2.1 % (0-5); Hematocrit 37.3 % (40-54); Hemoglobin 13.6 g/dL (13.0-16.5); Lymphocyte # 1.41 X10^3/ul (0.83-4.51); Lymphocyte % 30.1 % (19-41); Mean Corp Hgb Conc 36.5 g/dL (32-36); Mean Corpuscular Hgb 34.9 pg (27.0-32.0); Mean Corpuscular Volume 95.6 fL (80-94); Mean Platelet Vol. 9.9 fl (6.2-12.0); Monocyte# 0.36 X10^3/uL; Monocyte% 7.7 % (0-10); NRBC Flagged by Analyzer 0 % (0-5); Neutrophil # 2.78 X10^3/uL (2.7-7.7); Neutrophil % 59.3 % (47-70); Platelet Count 126 K/mm3 (150-450); RBC Distribution Width CV 15.3 % (11.6-14.6); RBC Distribution Width SD 52.9 fl (35.1-43.9); White Blood Count 4.7 K/mm3 (4.4-11.0)
[2020-11-11 05:17] LABS: International Normalized Ratio 1.1; Prothrombin Time (Protime)PT. 13.2 SECONDS (11.7-14.9)
[2020-11-11 05:27] LABS: Anion Gap 8 (5-15); BUN 2 mg/dL (7-18); BUN/Creat Ratio 4.3 RATIO (10-20); Calcium,Total 7.8 mg/dL (8.5-10.1); Chloride 104 mmol/L (98-107); Creatinine, Serum 0.47 mg/dL (0.70-1.30); EST Glomerular Filtration Rate 192 mL/min (>60); Est Glom Filt Rate - Afr Amer 233 mL/min (>60); Estimated Creatinine Clearance 131.15 ml/min; Glucose 72 mg/dL (74-106); Potassium 3.7 mmol/L (3.5-5.1); Sodium Level 137 mmol/L (136-145)
[2020-11-11] MEDS: Folic Acid 1 MG Tablet PO (08:29)
[2020-11-11] MEDS: Ferrous Sulfate 325 MG Tablet PO (08:29)
[2020-11-11] MEDS: Lisinopril 10 MG Tablet PO (08:29)
[2020-11-11] MEDS: Pantoprazole Sodium 40 MG Tablet PO (08:30)
[2020-11-11] MEDS: Enoxaparin 60 MG/0.6 ML Syringe SC ×2 (08:30→20:40)
[2020-11-11] MEDS: Furosemide 20 MG Tablet PO (08:30)
[2020-11-11] MEDS: Potassium Chloride Oral Tablet 20 MEQ 40 MEQ PO (08:30)
[2020-11-11] MEDS: Ascorbic Acid 500 MG Tablet 1000 MG PO ×2 (08:31→20:41)
[2020-11-11] MEDS: Carvedilol 3.125 MG TABLET PO ×2 (08:31→20:39)
[2020-11-11] MEDS: Finasteride 5 MG Tablet PO (08:31)
[2020-11-11] MEDS: Thiamine Hydrochloride 100 MG Tablet PO (08:32)
--- NOTE | 2020-11-11 11:04 | PCM.PN.HOSP ---
Documented by User: Sherley Camargo NP, INTERIOR DESIGN ASSISTANT-C 11/11/20 11:20 Subjective Subjective Patient seen and examined. Reports mild tremors, anxiety. Denies other significant withdrawal symptoms. Objective Data Objective Data Vital Signs: Vital Signs Temp Pulse Resp BP Pulse Ox 98.5 F 101 H 18 114/73 94 11/11/20 08:30 11/11/20 08:30 11/11/20 08:30 11/11/20 08:30 11/11/20 08:30 Oxygen Delivery Method Room Air Weight: 125 lb 7.088 oz Body Mass Index (BMI) 22.2 Intake & Output: Intake and Output for Last 24 Hours 11/09/20 11/10/20 11/11/20 23:59 23:59 23:59 Output Total 450 / 450 Balance -450 / -450 Lab / Micro Data Result Diagrams: 11/11/20 04:44 11/11/20 04:44 Labs: Laboratory Results - last 24 hr 11/10/20 21:46: WBC 4.9, RBC 4.23 L, Hgb 14.4, Hct 40.4, MCV 95.5 H, MCH 34.0 H, MCHC 35.6, RDW Std Deviation 51.8 H, RDW Coeff of Harjeet 15.0 H, Plt Count 136 L, MPV 9.6, Immature Gran % (Auto) 0.400, Neut % (Auto) 59.6, Lymph % (Auto) 27.4, [place] % (Auto) 10.1 H, Eos % (Auto) 2.1, Baso % (Auto) 0.4, Absolute Neuts (auto) 2.9, Absolute Lymphs (auto) 1.33, Nucleated RBC % 0 11/10/20 21:46: Sodium 138, Potassium 2.6 L*, Chloride 101, Carbon Dioxide 29.0, Anion Gap 8, BUN 1 L, Creatinine 0.57 L, Estim Creat Clear Calc 112.51, Est GFR (MDRD) Af Amer 185, Est GFR (MDRD) Non-Af 153, BUN/Creatinine Ratio 1.8 L, Glucose 82, Calcium 8.2 L 11/10/20 21:46: Ethyl Alcohol 321.0 H* 11/10/20 21:46: PT 13.1, INR 1.1 11/10/20 21:46: Magnesium 2.0 11/11/20 00:30: Urine Opiates Screen NEGATIVE, Urine Methadone Screen NEGATIVE, Ur Barbiturates Screen NEGATIVE, Ur Phencyclidine Scrn NEGATIVE, Ur Amphetamines Screen NEGATIVE, U Methamphetamin-MDMA NEGATIVE, U Benzodiazepines Scrn NEGATIVE, Urine Cocaine Screen NEGATIVE, U Cannabinoids Screen POSITIVE H, Ur Drug Screen Comment 11/11/20 04:44: WBC 4.7, RBC 3.90 L, Hgb 13.6, Hct 37.3 L, MCV 95.6 H, MCH 34.9 H, MCHC 36.5 H, RDW Std Deviation 52.9 H, RDW Coeff of Harjeet 15.3 H, Plt Count 126 L, MPV 9.9, Immature Gran % (Auto) 0.200, Neut % (Auto) 59.3, Lymph % (Auto) 30.1, [place] % (Auto) 7.7, Eos % (Auto) 2.1, Baso % (Auto) 0.6, Absolute Neuts (auto) 2.8, Absolute Lymphs (auto) 1.41, Nucleated RBC % 0 11/11/20 04:44: PT 13.2, INR 1.1 11/11/20 04:44: Sodium 137, Potassium 3.7, Chloride 104, Carbon Dioxide 25.0, Anion Gap 8, BUN 2 L, Creatinine 0.47 L, Estim Creat Clear Calc 131.15, Est GFR (MDRD) Af Amer 233, Est GFR (MDRD) Non-Af 192, BUN/Creatinine Ratio 4.3 L, Glucose 72 L, Calcium 7.8 L Physical Exam Const alert, oriented x3 and no apparent distress Constitutional Narrative: Upper extremity tremors. Orientation / Consciousness: awake, oriented to person, oriented to place and oriented to time HEENT normocephalic and moist oral mucous membranes Eyes PERRL, EOMs intact bilaterally and conjunctivae normal Neck no lymphadenopathy Resp normal respiratory effort and clear to auscultation bilaterally Cardio regular rate, regular rhythm and no murmurs Peripheral Pulses: pulses 2+ throughout GI normal to inspection, nondistended, normoactive bowel sounds, non-tender and non-distended Extremity normal to inspection Skin no rashes or lesions noted Lesions: no lesions Rashes: no rashes Trauma: no lacerations or abrasions Neuro CN's II-XII intact bilaterally, no focal motor deficits, no sensory deficits noted and deep tendon reflexes 2+ bilaterally Psych mental status grossly normal and affect normal Assessment & Plan Assessment/Plan (1) Acute alcohol withdrawal: PLAN: 1. Acute alcohol withdrawal, chronic alcohol dependence-medical stabilization per protocol. Phenobarb taper. Folic acid, thiamine, multivitamin supplementation. [employer] consulted. 2. History of mitral valve replacement with mechanical valve, subtherapeutic INR-resume Coumadin, trend INR. 3. Paroxysmal atrial fibrillation-history of permanent pacemaker placement. 4. Hypertension-stable, continue carvedilol, lisinopril. 5. hyperlipidemia-not on statin. 6. Chronic COPD-as needed albuterol aerosol. 7. BPH-on Proscar. DVT prophylaxis-Lovenox, Coumadin This patient was seen by BALBIR Garcia under the supervision of Dr. Kevin. Documented by User: Dr. Srinivasa Kevin, 11/11/20 14:30 Objective Data Lab / Micro Data Result Diagrams: 11/11/20 04:44 11/11/20 04:44 Charges/Coding Addendum Addendum: Patient seen and examined independently. Data and vitals reviewed. I agree with the above note by the nurse practitioner. Feels better overall but still tremulous. Physical exam: Patient is no acute stress and afebrile. Appears older than stated age. Heart rate regular rate and rhythm with a mitral valve mechanical click. Lungs are clear to auscultation bilaterally. Abdomen is soft nontender nondistended normal bowel sounds no paraspinal megaly. Assessment and plan: 1. Acute alcohol withdrawal Patient stated that he is overall feeling better Continue with phenobarbital, thiamine and folate Continue with as needed's as needed for somatic symptom associated with his withdrawal Addiction medicine to facilitate further treatment upon discharge 2. Mechanical mitral valve Goal INR is 2.5-3.5 Continue with warfarin and weightbase enoxaparin Discussed with patient about the risks of long-term discontinuation of anticoagulation including stroke Visit Charges Inpatient E&M: 89548 Subs Hosp L2
--- NOTE | 2020-11-11 11:40 | ADDICTION ---
This rewriter met with PT to conduct ASAM, MSE, AUDIT assessments and to plan for d/c. PT A+Ox4 and participated actively. All assessments completed, faxed to [facility] and placed in PT's chart. PT plans to f/u with individual counselor at [facility] for follow-up counseling services. PT did not indicate a need for transportation post d/c from [facility].
[2020-11-11] MEDS: Pregabalin 50 MG Capsule 100 MG PO (20:40)
[2020-11-11] MEDS: Acetaminophen 325 MG Tablet 650 MG PO (20:41)
[2020-11-12] VITALS (9 sets, daily range): BP systolic 116–141; BP diastolic 63–89; PULSE 63–89; RESP 16; TEMP 36.8–37; O2SAT 95–99
[2020-11-12] MEDS: Phenobarbital 32.4 MG Tablet 64.8 MG PO ×4 (00:48→12:33)
[2020-11-12] MEDS: Oxybutynin 5 MG Tablet PO ×2 (04:46→13:00)
[2020-11-12 05:36] LABS: International Normalized Ratio 1.2; Prothrombin Time (Protime)PT. 14.1 SECONDS (11.7-14.9)
[2020-11-12 05:38] LABS: Anion Gap 6 (5-15); BUN 7 mg/dL (7-18); BUN/Creat Ratio 11.6 RATIO (10-20); Calcium,Total 8.1 mg/dL (8.5-10.1); Chloride 98 mmol/L (98-107); EST Glomerular Filtration Rate 143 mL/min (>60); Est Glom Filt Rate - Afr Amer 174 mL/min (>60); Estimated Creatinine Clearance 102.74 ml/min; Glucose 79 mg/dL (74-106); Potassium 3.2 mmol/L (3.5-5.1); Sodium Level 133 mmol/L (136-145)
[2020-11-12] MEDS: Thiamine Hydrochloride 100 MG Tablet PO (08:41)
[2020-11-12] MEDS: Dicyclomine 10 MG Capsule 20 MG PO (08:41)
[2020-11-12] MEDS: Ferrous Sulfate 325 MG Tablet PO (08:41)
[2020-11-12] MEDS: Potassium Chloride Oral Tablet 20 MEQ 40 MEQ PO (08:41)
[2020-11-12] MEDS: Folic Acid 1 MG Tablet PO (08:41)
--- NOTE | 2020-11-12 09:11 | PCM.DC ---
Discharge Instructions Diet Discharge Diet: No restrictions Activity Discharge Activity: Return to Normal Activity Follow Up Care Test Results: Test results from this visit will be discussed in further detail at your follow-up appointment, if applicable. Pending Tests Upon Discharge: You will need to have your INR checked early next week. Discharge Plan Admission Admit Date/Time: 11/10/20 23:55 Primary Reason for Your Visit: Alcohol withdrawal Attending Provider: Srinivasa Kevin Primary Care Provider: Josue Cifuentes Discharge Orders/Prescriptions Prescriptions: New acetaminophen [Tylenol] 325 mg Tablet 650 mg PO Q6H PRN PRN (Reason: Pain Score 1-10/Temp > 100.7 F) Qty: 0 RF: 0 multivitamin Tablet 1 tab PO DAILY Qty: 1 RF: 0 Continued carvedilol 3.125 MG tablet 3.125 mg PO BID RF: 0 ferrous sulfate 325 MG tablet 325 mg PO DAILY RF: 0 finasteride 5 MG tablet 5 mg PO DAILY RF: 0 ascorbic acid (vitamin C) 500 MG tablet 1,000 mg PO BID RF: 0 warfarin 5 MG tablet 10 mg PO QHS RF: 0 omeprazole 40 MG capsule,delayed release(DR/EC) 40 mg PO DAILY RF: 0 trazodone 300 MG tablet 300 mg PO QHS RF: 0 docusate sodium 100 MG capsule 100 mg PO BID RF: 0 lisinopril 10 MG tablet 10 mg PO DAILY RF: 0 pregabalin 100 mg Capsule 100 mg PO QHS RF: 0 hydroxyzine HCl 25 mg Tablet 25 mg PO TID PRN (Reason: Anxiety) RF: 0 enoxaparin [Lovenox] 60 mg/0.6 mL Syringe 60 mg SUBCUT DAILY 4 Days Qty: 2.4 RF: 0 oxybutynin chloride 5 mg tablet 5 mg PO TID RF: 0 acamprosate 333 mg tablet,delayed release (DR/EC) 2 tab PO TID RF: 0 furosemide 20 mg tablet 20 mg PO DAILY Qty: 90 RF: 3 Referrals / Follow Up: Josue Cifuentes MD [Primary Care Provider] - In 1 Week (hospital follow up. Will need INR check. Goal INR 2.5-3.5.) [employer] [STAFF PHYSICIAN] - In 1 Week (Outpatient program for alcohol abuse) Disposition Disposition (needs filled in before D/C Order can be placed): Home, Self Care
--- NOTE | 2020-11-12 09:25 | DS.PCM_ITS ---
Providers Date of Admission: 11/10/20 Primary Care Physician: Dr. Josue Cifuentes MD Reason For Visit: ALCOHOL WITHDRAWL Diagnosis Discharge Diagnosis (1) Acute alcohol withdrawal: Status: Acute Medications at Discharge Home Medications carvedilol 3.125 mg PO BID 08/18/17 ferrous sulfate 325 mg PO DAILY 08/18/17 finasteride 5 mg PO DAILY 08/18/17 oxybutynin chloride 5 mg tablet 5 mg PO TID tab 11/29/18 acamprosate 333 mg tablet,delayed release 2 tab PO TID tab 12/06/19 ascorbic acid (vitamin C) 1,000 mg PO BID 01/12/20 warfarin 10 mg PO QHS 01/12/20 docusate sodium 100 mg PO BID 05/13/20 lisinopril 10 mg PO DAILY 05/13/20 omeprazole 40 mg PO DAILY 05/13/20 trazodone 300 mg PO QHS 05/13/20 furosemide 20 mg tablet 20 mg PO DAILY #90 tablet 07/16/20 pregabalin 100 mg PO QHS 09/04/20 hydroxyzine HCl 25 mg PO TID PRN 11/10/20 acetaminophen [Tylenol] 650 mg PO Q6H PRN PRN #0 tab 11/12/20 enoxaparin [Lovenox] 60 mg SUBCUT DAILY 4 Days #2.4 ml 11/12/20 multivitamin 1 tab PO DAILY #1 tab 11/12/20 Hospital Course Operations None Procedures None Summary of Care Provided Minutes Spent on Discharge: 32 Hospital Course: 60-year-old male presents seeking treatment for acute alcohol withdrawal. Patient had been sober until September for fourth and then began drinking 10-12 beers per day. Patient was started on phenobarbital 's urines course was uncomplicated. Patient is feeling much better today, has no tremors and is otherwise feeling well. Patient was seen by addiction medicine and patient will follow up with 180 at the counseling services. Patient said that he will also be following up with alcoholics anonymous. In the midst of the patient's drinking spree, patient neglected to take any of his medications. Patient has a mechanical mitral valve and his INR on arrival was at 1.1. Patient was resumed back on warfarin and as well as enoxaparin. Farrukh anthony dates that he has both those medications at home but only a box of enoxaparin which would cover him for about 6-8 doses. Patient will receive additional enoxaparin to get his INR to goal of 2.5-3.5. Patient advised follow-up with primary care physician to continue to monitor his INR. Physical Exam Const alert, oriented x3 and no apparent distress Constitutional Narrative: No tremulousness. Normal gait. Medical Records Data Medical Nutrition Assessment Dietitian: Malnutrition Criteria Met Start: 11/11/20 11:48 Freq: Status: Active Protocol: Document 11/11/20 12:09 (Rec: 11/11/20 12:09 [id number]) Nutrition Malnutrition Evidence of Malnutrition Exists Yes Malnutrition (moderate): Social/Behavioral/ Environmental Evidenced By Suboptimal Energy Intake ( Moderate),Physical Changes ( Moderate) Clinical Problem Chronic Disease or Condition Related Malnutrition Etiology chronic, moderate malnutrition r/t inadequate protein/ calorie intake in context of alcohol abuse Signs/Symptoms as evidenced by estimated PO intake meeting <75% of protein /calorie needs >1 month, moderate muscle wasting/fat loss in upper extremities, clavicle, and acromion region. Status Active Problem Recommendation Dietitian Recommendations/Changes Continue cardiac diet; consider liberalizing to regular, no added salt pending PO intake at meals. Continue 120mL Ensure Enlive 4x/day; will add Ensure Pudding or Magic Cup BID w/ meals. Weight / BMI Weight Weight: 56.9 kg Body Mass Index (BMI) 22.2 ABG / Lab / Microbiology Data Result Diagrams: 11/11/20 04:44 11/12/20 04:58 Laboratory: Laboratory Results - last 24 hr 11/12/20 04:58: PT 14.1, INR 1.2 11/12/20 04:58: Sodium 133 L, Potassium 3.2 L, Chloride 98, Carbon Dioxide 29.0, Anion Gap 6, BUN 7, Creatinine 0.60 L, Estim Creat Clear Calc 102.74, Est GFR (MDRD) Af Amer 174, Est GFR (MDRD) Non-Af 143, BUN/Creatinine Ratio 11.6, Glucose 79, Calcium 8.1 L D/C Instructions Discharge Diet: No restrictions Pending Tests Upon Discharge: You will need to have your INR checked early next week. Meaningful Use Info Meaningful Use Diagnoses (Choose all that apply): None applicable Discharge Plan Admission Admit Date/Time: 11/10/20 23:55 Primary Reason for Your Visit: Alcohol withdrawal Attending Provider: Srinivasa Kevin Primary Care Provider: Josue Cifuentes Discharge Orders/Prescriptions Prescriptions: New acetaminophen [Tylenol] 325 mg Tablet 650 mg PO Q6H PRN PRN (Reason: Pain Score 1-10/Temp > 100.7 F) Qty: 0 RF: 0 multivitamin Tablet 1 tab PO DAILY Qty: 1 RF: 0 Continued carvedilol 3.125 MG tablet 3.125 mg PO BID RF: 0 ferrous sulfate 325 MG tablet 325 mg PO DAILY RF: 0 finasteride 5 MG tablet 5 mg PO DAILY RF: 0 ascorbic acid (vitamin C) 500 MG tablet 1,000 mg PO BID RF: 0 warfarin 5 MG tablet 10 mg PO QHS RF: 0 omeprazole 40 MG capsule,delayed release(DR/EC) 40 mg PO DAILY RF: 0 trazodone 300 MG tablet 300 mg PO QHS RF: 0 docusate sodium 100 MG capsule 100 mg PO BID RF: 0 lisinopril 10 MG tablet 10 mg PO DAILY RF: 0 pregabalin 100 mg Capsule 100 mg PO QHS RF: 0 hydroxyzine HCl 25 mg Tablet 25 mg PO TID PRN (Reason: Anxiety) RF: 0 enoxaparin [Lovenox] 60 mg/0.6 mL Syringe 60 mg SUBCUT DAILY 4 Days Qty: 2.4 RF: 0 oxybutynin chloride 5 mg tablet 5 mg PO TID RF: 0 acamprosate 333 mg tablet,delayed release (DR/EC) 2 tab PO TID RF: 0 furosemide 20 mg tablet 20 mg PO DAILY Qty: 90 RF: 3 Referrals / Follow Up: Josue Cifuentes MD [Primary Care Provider] - In 1 Week (hospital follow up. Will need INR check. Goal INR 2.5-3.5.) [facility] [STAFF PHYSICIAN] - In 1 Week (Outpatient program for alcohol abuse) Disposition Disposition (needs filled in before D/C Order can be placed): Home, Self Care Charges/Coding Visit Charges Inpatient E&M: 92419 Disch Hosp
--- NOTE | 2020-11-12 09:41 | CASEMGMT ---
Addendum entered by Flori Murphy 11/12/20 11:23: Call from Leslie, pt's CM thru [facility], and she is updated on pt discharge and states pt gets 7 meals/weekly as well as 4hours of aides thru [facility]/week. Roxann PATEL CM Addendum entered by Flori Murphy 11/12/20 10:36: Call from Angel in pharmacy and pt has no co-pay for his Lovenox. Wendy PATEL aware to instruct pt/sig other on lovenox injections, voices understanding. Roxann PATEL CM Original Note: Pt to be sent home on Lovenox at discharge and med e-scribed to [facility] retail pharmacy. Call to Angel in pharmacy and he will notify this JORGE CARD of coverage/co-pay once obtained. CM to follow. Roxann PATEL CM
--- NOTE | 2020-11-12 10:05 | ADDICTION ---
This worker visited PT today to discuss appointment made at [facility], coping skills and relapse prevention planning.
--- NOTE | 2020-11-12 10:54 | PHA.DC.MC ---
Pharmacy Service has performed discharge medication reconciliation and counseling for this patient. The patient was counseled on the following discharge medications and changes in medications for homegoing were reviewed. 1. LOVENOX- PT REPORTS THIS IS NOT A NEW MEDICATION, HAS TAKEN PREVIOUSLY. The Reason for Use, instructions for use, and potential side effects were reviewed for all new medications. The patient's questions regarding all of their medications were answered. The patient was able to verbally demonstrate an understanding of their discharge medications. Home Medications carvedilol 3.125 mg PO BID 08/18/17 ferrous sulfate 325 mg PO DAILY 08/18/17 finasteride 5 mg PO DAILY 08/18/17 oxybutynin chloride 5 mg tablet 5 mg PO TID tab 11/29/18 acamprosate 333 mg tablet,delayed release 2 tab PO TID tab 12/06/19 ascorbic acid (vitamin C) 1,000 mg PO BID 01/12/20 warfarin 10 mg PO QHS 01/12/20 docusate sodium 100 mg PO BID 05/13/20 lisinopril 10 mg PO DAILY 05/13/20 omeprazole 40 mg PO DAILY 05/13/20 trazodone 300 mg PO QHS 05/13/20 furosemide 20 mg tablet 20 mg PO DAILY #90 tablet 07/16/20 pregabalin 100 mg PO QHS 09/04/20 hydroxyzine HCl 25 mg PO TID PRN 11/10/20 acetaminophen [Tylenol] 650 mg PO Q6H PRN PRN #0 tab 11/12/20 enoxaparin [Lovenox] 60 mg SUBCUT DAILY 4 Days #2.4 ml 11/12/20 multivitamin 1 tab PO DAILY #1 tab 11/12/20 The patient's discharge medication list was reviewed for discrepancies and discrepancies were resolved.
[2020-11-12] MEDS: Docusate Sodium 100 MG Capsule PO (10:56)
[2020-11-12] MEDS: Lisinopril 10 MG Tablet PO (10:56)
[2020-11-12] MEDS: Enoxaparin 60 MG/0.6 ML Syringe SC (10:56)
[2020-11-12] MEDS: Furosemide 20 MG Tablet PO (10:56)
[2020-11-12] MEDS: Ascorbic Acid 500 MG Tablet 1000 MG PO (10:56)
[2020-11-12] MEDS: Pantoprazole Sodium 40 MG Tablet PO (10:56)
[2020-11-12] MEDS: Carvedilol 3.125 MG TABLET PO (10:56)
[2020-11-12] MEDS: Finasteride 5 MG Tablet PO (10:56)
--- NOTE | 2020-11-13 14:04 | CASEMGMT ---
JORGE CARD Discharge Follow-up Phone Call: BERNARDINO: 10 Strata: 3 Call Date: 11/13/20 Discharge Date: 11/12/20 Time of Call: 1400 Duration: 1 min Admitting Diagnosis: Alcohol Withdrawal JORGE CARD attempted to complete follow-up phone call after recent hospitalization. No answer, voicemail box full and unable to leave message.
== END 2020-11-12 14:04 | disposition home or self-care (01) | DRG 897 ==
LOC: ED 23:13 → PCU 23:58
PROVIDERS: Nurse Practitioner Family; Admitting Provider Hospitalist; Emergency Provider Emergency Medicine; PCP Family Medicine
DX: F10.239 Alcohol dependence with withdrawal, unspecified (principal); I11.0 Hypertensive heart disease with heart failure; I50.32 Chronic diastolic (congestive) heart failure; E44.0 Moderate protein-calorie malnutrition; K70.30 Alcoholic cirrhosis of liver without ascites; R79.1 Abnormal coagulation profile; E87.6 Hypokalemia; Z91.14 Patient's other noncompliance with medication regimen; I48.0 Paroxysmal atrial fibrillation; J44.9 Chronic obstructive pulmonary disease, unspecified; I35.1 Nonrheumatic aortic (valve) insufficiency; E78.5 Hyperlipidemia, unspecified; G62.9 Polyneuropathy, unspecified; M19.90 Unspecified osteoarthritis, unspecified site; N40.0 Benign prostatic hyperplasia without lower urinary tract symptoms; K21.9 Gastro-esophageal reflux disease without esophagitis; F03.90 Unspecified dementia, unspecified severity, without behavioral disturbance, psychotic disturbance, mood disturbance, and anxiety; F32.9 Major depressive disorder, single episode, unspecified; F41.9 Anxiety disorder, unspecified; F17.210 Nicotine dependence, cigarettes, uncomplicated; Z68.22 Body mass index [BMI] 22.0-22.9, adult; Z79.01 Long term (current) use of anticoagulants; Z79.899 Other long term (current) drug therapy; Z95.2 Presence of prosthetic heart valve; Z95.0 Presence of cardiac pacemaker
CPT/HCPCS: 36415; 80048; 80307; 82077; 83735; 85025; 85610; 93005; 97802; 99285; 99406; A4216; J2405

== ENCOUNTER → 2020-11-23 | Outpatient (CLI) | payer MEDICARE, MEDICAID, SELFPAY ==
[2020-11-23 12:39] LABS: International Normalized Ratio 1.2; Prothrombin Time (Protime)PT. 14.8 SECONDS (11.7-14.9)
== END | disposition home or self-care (01) ==
LOC: LABSPEC 12:05
PROVIDERS: PCP Family Medicine; Referring Provider Family Medicine; Visit Provider Family Medicine
DX: Z79.01 Long term (current) use of anticoagulants (principal); Z95.2 Presence of prosthetic heart valve
CPT/HCPCS: 85610

== ENCOUNTER → 2020-11-26 | Outpatient (CLI) | payer MEDICARE, MEDICAID, SELFPAY ==
[2020-11-26 13:11] LABS: International Normalized Ratio 1.1; Prothrombin Time (Protime)PT. 13.2 SECONDS (11.7-14.9)
== END | disposition home or self-care (01) ==
PROVIDERS: PCP Family Medicine; Referring Provider Family Medicine; Visit Provider Family Medicine
DX: Z95.2 Presence of prosthetic heart valve (principal)
CPT/HCPCS: 85610

== ENCOUNTER → 2020-12-02 | Outpatient (CLI) | payer MEDICARE, MEDICAID, SELFPAY ==
[2020-12-02 14:06] LABS: International Normalized Ratio 1.6; Prothrombin Time (Protime)PT. 17.9 SECONDS (11.7-14.9)
== END | disposition home or self-care (01) ==
LOC: LABSPEC 13:58
PROVIDERS: PCP Family Medicine; Referring Provider Family Medicine; Visit Provider Family Medicine
DX: Z95.2 Presence of prosthetic heart valve (principal)
CPT/HCPCS: 85610

== ENCOUNTER → 2020-12-09 | Outpatient (CLI) | payer MEDICARE, MEDICAID, SELFPAY ==
[2020-12-09 13:05] LABS: Prothrombin Time (Protime)PT. 21.9 SECONDS (11.7-14.9)
== END | disposition home or self-care (01) ==
LOC: LABSPEC 12:36
PROVIDERS: PCP Family Medicine; Visit Provider Family Medicine
DX: Z95.2 Presence of prosthetic heart valve (principal)
CPT/HCPCS: 85610

== ENCOUNTER → 2020-12-14 | Outpatient (CLI) | payer MEDICARE, MEDICAID, SELFPAY ==
[2020-12-14 11:25] LABS: International Normalized Ratio 2.1
== END | disposition home or self-care (01) ==
LOC: LABSPEC 16:32
PROVIDERS: PCP Family Medicine; Visit Provider Family Medicine
DX: Z95.2 Presence of prosthetic heart valve (principal)
CPT/HCPCS: 85610

== ENCOUNTER → 2020-12-17 | Outpatient (CLI) | payer MEDICARE, MEDICAID, SELFPAY ==
[2020-12-17 15:23] LABS: International Normalized Ratio 2.2; Prothrombin Time (Protime)PT. 23.2 SECONDS (11.7-14.9)
== END | disposition home or self-care (01) ==
LOC: LABSPEC 15:03
PROVIDERS: PCP Family Medicine; Referring Provider Family Medicine; Visit Provider Family Medicine
DX: Z95.2 Presence of prosthetic heart valve (principal)
CPT/HCPCS: 85610

== ENCOUNTER → 2020-12-21 | Outpatient (CLI) | payer MEDICARE, MEDICAID, SELFPAY ==
[2020-12-21 12:51] LABS: International Normalized Ratio 3.4; Prothrombin Time (Protime)PT. 33.7 SECONDS (11.7-14.9)
== END | disposition home or self-care (01) ==
LOC: LABSPEC 12:27
PROVIDERS: PCP Family Medicine; Visit Provider Family Medicine
DX: Z95.2 Presence of prosthetic heart valve (principal)
CPT/HCPCS: 85610

== ENCOUNTER → 2020-12-28 | Outpatient (CLI) | payer MEDICARE, MEDICAID, SELFPAY ==
[2020-12-28 15:58] LABS: International Normalized Ratio 3.1; Prothrombin Time (Protime)PT. 30.7 SECONDS (11.7-14.9)
== END | disposition home or self-care (01) ==
LOC: LABSPEC 15:30
PROVIDERS: PCP Family Medicine; Referring Provider Family Medicine; Visit Provider Family Medicine
DX: Z95.2 Presence of prosthetic heart valve (principal)
CPT/HCPCS: 85610

== ENCOUNTER → 2021-01-05 | Outpatient (CLI) | payer MEDICARE, MEDICAID, SELFPAY ==
[2021-01-05 10:36] LABS: Prothrombin Time (Protime)PT. 42.3 SECONDS (11.7-14.9)
[2021-01-05 10:41] LABS: International Normalized Ratio 4.5
== END | disposition home or self-care (01) ==
LOC: LABSPEC 10:21
PROVIDERS: PCP Family Medicine; Referring Provider Family Medicine; Visit Provider Family Medicine
DX: Z95.2 Presence of prosthetic heart valve (principal)
CPT/HCPCS: 85610

== ENCOUNTER → 2021-01-14 | Outpatient (CLI) | payer MEDICARE, MEDICAID, SELFPAY ==
[2021-01-14 15:55] LABS: Prothrombin Time (Protime)PT. 41.1 SECONDS (11.7-14.9)
[2021-01-14 16:20] LABS: International Normalized Ratio 4.4
== END | disposition home or self-care (01) ==
LOC: LABSPEC 15:05
PROVIDERS: PCP Family Medicine; Referring Provider Family Medicine; Visit Provider Family Medicine
DX: Z95.2 Presence of prosthetic heart valve (principal)
CPT/HCPCS: 85610

== ENCOUNTER 2021-02-01 09:34 | Emergency (ER) | payer MEDICARE, MEDICAID, SELFPAY ==
[2021-02-01 09:35] VITALS: BP 149/80; PULSE 72; RESP 20; TEMP 36.6; O2SAT 99; BMI 26.5
--- NOTE | 2021-02-01 09:39 | ED.RN ---
PT STATES HAVE NOT HAD A DRINK IN 5 MONTHS, AND STOPPED SMOKING POT LAST MONTH
--- NOTE | 2021-02-01 09:53 | CT_ITS ---
EXAM: CT HEAD WITHOUT INTRAVENOUS CONTRAST : 1960 CLINICAL INDICATION: head injury TECHNIQUE: Multiple axial images were obtained of the head without intravenous contrast. This CT exam was performed using one or more of the following dose reduction techniques: automated exposure control, adjustment of the mA and/or kV according to patient size, and/or use of iterative reconstruction technique. This report was created using [employer] report generation technology. COMPARISON: June 24, 2017 FINDINGS: BRAIN AND EXTRA-AXIAL SPACES: Diminished white matter density cosistent with chronic microvascular disese. Prominence of the cortical sulci and ventricles related to volume loss change. No intra- or extra-axial hemorrhage. No evidence of acute infarct. No intracranial mass or mass effect. There is preservation of the gambino/white matter interface. Posterior fossa structures are unremarkable. Basal cisterns are patent. BONES/JOINTS: Surgical deformity of the left temporal bone again seen. No discrete lytic or blastic abnormalities. SINUSES: Improving aeration of the paranasal sinuses. MASTOID AIR CELLS: Unremarkable. Clear. ORBITS: Visualized globes, extraocular muscles, optic nerves and retrobulbar fat appear unremarkable. CT/Brain/Head without Contrast IMPRESSION: 1. No acute intracranial abnormality. 2. Resolution of the paranasal sinusitis. Individualized dose optimization techniques were used for this CT. at 1154 Reported and signed by: Sincere Belle MD Electronically Signed: Sincere Belle MD at 11:53 EST Tel , Service support ,
--- NOTE | 2021-02-01 09:53 | CT_ITS ---
EXAM: CT CERVICAL SPINE WITHOUT INTRAVENOUS CONTRAST : 1960 CLINICAL INDICATION: Pain TECHNIQUE: Helically acquired images were obtained of the cervical spine without intravenous contrast. 2D reformatted images were reviewed. This CT exam was performed using one or more of the following dose reduction techniques: automated exposure control, adjustment of the mA and/or kV according to patient size, and/or use of iterative reconstruction technique. This report was created using [employer] report generation technology. COMPARISON: February 12, 2018 FINDINGS: VERTEBRAE: Superior endplate deformity of T1 vertebral body again seen. No fracture. No traumatic subluxation. No discrete lytic or blastic abnormality. Normal alignment. DISCS/SPINAL CANAL/NEURAL FORAMINA: Multilevel disc space narrowing and facet arthropathy unchanged from prior exam. Narrowing of the C5-6 neural foramina again noted. SOFT TISSUES: Unremarkable. No prevertebral soft tissue swelling. LYMPH NODES: Unremarkable. No cervical adenopathy. LUNG APICES: There are multiple subpleural blebs in the lung apices. CT/Spine Cervical without Contras IMPRESSION: 1. No acute cervical spine abnormality. 2. Stable diffuse spondylosis. Individualized dose optimization techniques were used for this CT. at 1152 Reported and signed by: Sincere Belle MD Electronically Signed: Sincere Belle MD at 11:51 EST Tel , Service support ,
--- NOTE | 2021-02-01 09:53 | CT_ITS ---
History: Pain CT of the Lumbar Spine: Findings: Multiplanar CT images of the lumbar spine demonstrate no acute fracture or dislocation. Disc spaces are normal. No disc herniation or bulging. Caliber of the bony spinal canal is normal. Paraspinal soft tissues are normal. IMPRESSION: Normal CT of the Lumbar Spine. Individualized dose optimization techniques were used for this CT. at 1149 Reported and signed by: Sincere Belle MD Electronically Signed: Sincere Belle MD at 11:48 EST Tel , Service support , CT/Spine Lumbar without Contrast
--- NOTE | 2021-02-01 09:53 | RAD_ITS ---
History: Pain: Left shoulder 3 views: Findings: No fracture or subluxation. Mild narrowing of the AC joint. Soft tissues are normal. IMPRESSION: No acute abnormality. at 1156 Reported and signed by: Sincere Belle MD Electronically Signed: Sincere Belle MD at 11:54 EST Tel , Service support , RAD/Shoulder min 2 Views
--- NOTE | 2021-02-01 09:54 | EKG12_ITS ---
Test Reason : DIZZINESS Blood Pressure : / mmHG Vent. Rate : 065 BPM Atrial Rate : 065 BPM P-R Int : 214 ms QRS Dur : 136 ms QT Int : 460 ms P-R-T Axes : 037 038 039 degrees QTc Int : 478 ms Atrial-sensed ventricular-paced rhythm with prolonged AV conduction Abnormal ECG Confirmed by MARIUM CORBETT, KENYATTA ([id number]), editor in chief JONNATHAN MERCEDES ([id number]) on 02/03/2021 9:09:45 AM Referred By: IVANA Confirmed By:KENYATTA CAUSEY MD
--- NOTE | 2021-02-01 09:58 | EDS_ITS ---
HPI HPI - Fall History of Present Illness Chief Complaint: Dizziness Narrative Narrative: Patient presents to the emergency department status post fall on Monday evening, approximately 30 hours ago. He states he got up to go to the bathroom in the middle of the night and felt shaky. He fell backwards. He denies loss of consciousness. He states he had to lay on the floor for 5 minutes before he could get up. He did end up going to the bathroom, then went back to bed. He complains of neck pain. He has remote history of neck fracture in 3 places that he states he wore a neck brace for months. He also complains of left shoulder pain, and states he had bone spurs removed. He also has low back pain. He denies any loss of bowel or bladder or any red flag signs for cauda equina. He states he struck the left side of his head and has left-sided neck pain. He has a pacemaker and states he takes Coumadin. He lives at home alone. He presents via taxi for evaluation of his neck pain and headache from his fall over 24 hours ago. [facility] Medical History Alcohol use Alcoholic cirrhosis Alcoholism /alcohol abuse Ambulates with cane Anxiety Arthritis Blackout BPH (benign prostatic hyperplasia) Bruising Cardiology follow-up encounter Chronic cough COPD (chronic obstructive pulmonary disease) Dementia Depression Easy bruising Essential hypertension Excessive bleeding Gastric reflux High cholesterol History of GI bleed History of pacemaker History of wrist fracture HTN (hypertension) Hyperlipidemia Injury of back Injury of head and neck Marijuana use Neuropathy Nonrheumatic aortic (valve) insufficiency Paroxysmal atrial fibrillation Presence of permanent cardiac pacemaker Prostate disease Shortness of breath on exertion Smoker Wears dentures Wears glasses Wears hearing aid Home Medications carvedilol 3.125 mg PO BID 08/18/17 [History Last Taken 05/12/20] ferrous sulfate 325 mg PO DAILY 08/18/17 [History Last Taken 05/12/20] finasteride 5 mg PO DAILY 08/18/17 [History Last Taken 05/12/20] oxybutynin chloride 5 mg tablet 5 mg PO TID tab 11/29/18 [History Last Taken 05/12/20] acamprosate 333 mg tablet,delayed release 2 tab PO TID tab 12/06/19 [History Last Taken 05/12/20] ascorbic acid (vitamin C) 1,000 mg PO BID 01/12/20 [History Last Taken 05/12/20] warfarin 10 mg PO MOTUWETHFR 01/12/20 [History Last Taken 09/03/20] docusate sodium 100 mg PO BID 05/13/20 [History Last Taken 05/12/20] lisinopril 10 mg PO DAILY 05/13/20 [History Last Taken 05/12/20] omeprazole 40 mg PO DAILY 05/13/20 [History Last Taken 05/12/20] trazodone 300 mg PO QHS 05/13/20 [History Last Taken 05/12/20] pregabalin 100 mg PO BID 09/04/20 [History Last Taken Unknown] hydroxyzine HCl 25 mg PO TID PRN 11/10/20 [History Last Taken Unknown] acetaminophen [Tylenol] 650 mg PO Q6H PRN PRN #0 tab 11/12/20 [Rx Last Taken Unknown] multivitamin 1 tab PO DAILY #1 tab 11/12/20 [Rx Last Taken Unknown] furosemide 60 mg PO DAILY 02/01/21 [History Last Taken Unknown] paroxetine HCl 50 mg PO DAILY 02/01/21 [History Last Taken Unknown] ropinirole 0.5 mg PO QHS 02/01/21 [History Last Taken Unknown] tiotropium bromide [Spiriva with HandiHaler] 1 cap INHALATION BID 02/01/21 [History Last Taken Unknown] warfarin 12.5 mg PO SUSA 02/01/21 [History Last Taken Unknown] Allergy/AdvReac Type Severity Reaction Status Date / Time ibuprofen AdvReac Upset Verified 02/01/21 09:38 Stomach metronidazole AdvReac Upset Verified 02/01/21 09:38 Stomach naproxen [From Aleve] AdvReac gi upset Verified 02/01/21 09:38 Family History Mother Heart disease Father Heart disease CVA (cerebral vascular accident) Brother Heart disease Diabetes Sister Heart disease Surgical History H/O mitral valve replacement with mechanical valve (~2009) History of ankle surgery History of arthroscopy of left shoulder History of cholecystectomy History of hernia repair History of hip surgery History of sinus surgery Status post mitral valve replacement (~2009) Social History Smoking Status: Current every day smoker tobacco type: cigarettes alcohol intake: former year quit: 2017 substance use type: does not use ROS ROS ED ROS Narrative Constitutional: No fever, no chills. HEENT: No sore throat. Left-sided neck pain. No loss of vision. No rhinorrhea. Cardiovascular: No chest pain. No palpitations. No pedal edema. Respiratory: No cough, no shortness of breath. Abdominal: No abdominal pain. No nausea. No vomiting. Genitourinary: No dysuria. No hematuria. Musculoskeletal: No myalgias. No arthralgias. Positive low back pain. Neurologic: Left-sided headache headaches. No dizziness currently. No lightheadedness currently. Skin: No rash. No change in color. Psychiatric: No depression. No anxiety. EXAM Physical Exam Narrative Exam Narrative: Afebrile. Vital signs noted. GCS 15. ABCs intact. HEENT: Normocephalic. Atraumatic. PERRL, EOMI. Neck soft and supple. No point tenderness or step off. Positive left-sided paraspinal muscular tenderness. Range of motion limited secondary to pain. Cardiovascular: Regular rate and rhythm. No murmurs, rubs, or gallops appreciated. Respiratory: No tachypnea. Lungs clear to auscultation bilaterally. Gastrointestinal: Abdomen soft, nontender, with normoactive bowel sounds. No rebound or guarding. Neurological: Awake. Alert. Nonfocal, nonlateralizing. Oriented x3. Able to raise arms above head without difficulty. Skin: No rash. Normal color. No pallor. Musculoskeletal: No pedal edema. Full range of motion extremities. No evidence of dislocation clinically left shoulder. Const Vital Signs: 02/01/21 09:35 02/01/21 11:00 Temperature 97.9 F Temperature Source Temporal Pulse Rate 72 Respiratory Rate 20 H Respiratory Effort Normal Non-Labored Respiratory Pattern Normal Blood Pressure 149/80 H Blood Pressure Mean 103 Pulse Ox 99 Oxygen Delivery Method Room Air MDM MDM MDM Narrative Medical decision making narrative: Patient states that he has history of mild dementia, so he does not know who the president is currently, but he knows the month and year, and place. In review of his EMR, he has history of alcohol abuse and alcohol dependence. As he takes Coumadin, I will check an INR and basic laboratory work. I will obtain imaging of his brain, C-spine, and lumbar spine, along with left shoulder. His imaging studies are grossly unremarkable. CT the brain shows no evidence of acute hemorrhage. CT of the C-spine and lumbar spine show chronic changes but no acute fracture. X-ray of the shoulder shows no acute fracture or dislocation. His laboratory work is grossly unremarkable with a normal white count of 7.6, hemoglobin stable at 13.3. INR is therapeutic at 3.0. Sodium is slightly low 135. He requested something for pain. Initially, I had ordered him an Ultram, but this is contraindicated with his alcohol dependence. He was given Tylenol. Upon repeat examination he is resting comfortably. I feel he can be discharged safely home with follow-up. Return instructions to the emergency department were reviewed. Disposition is discharged home in stable condition. Lab Data Attestation: I reviewed the patient's lab results. Labs: Laboratory Results - last 24 hr 02/01/21 02/01/21 02/01/21 10:30 10:30 10:30 WBC 7.6 RBC 3.98 L Hgb 13.3 Hct 38.6 L MCV 97.0 H MCH 33.4 H MCHC 34.5 RDW Std Deviation 45.3 H RDW Coeff of Harjeet 12.6 Plt Count 163 MPV 9.4 Immature Gran % (Auto) 0.300 Neut % (Auto) 66.2 Lymph % (Auto) 15.0 L [place] % (Auto) 8.9 Eos % (Auto) 9.1 H Baso % (Auto) 0.5 Absolute Neuts (auto) 5.1 Absolute Lymphs (auto) 1.14 Nucleated RBC % 0 PT 30.4 H INR 3.0 Sodium 135 L Potassium 3.7 Chloride 103 Carbon Dioxide 30.0 Anion Gap 2 L BUN 8 Creatinine 0.78 Estim Creat Clear Calc 79.03 Est GFR (MDRD) Af Amer 130 Est GFR (MDRD) Non-Af 108 BUN/Creatinine Ratio 10.3 Glucose 106 Calcium 8.7 Total Bilirubin 0.30 AST 31 ALT 28 Alkaline Phosphatase 81 Total Protein 7.3 Albumin 3.4 Globulin 3.9 Albumin/Globulin Ratio 0.9 Radiography Diagnostic Testing: Clinical Impression(s) from Imaging Studies Brain CT 02/01/21 09:53 IMPRESSION: 1. No acute intracranial abnormality. 2. Resolution of the paranasal sinusitis. Individualized dose optimization techniques were used for this CT. at 1154 Reported and signed by: Sincere Belle MD Electronically Signed: Sincere Belle MD at 11:53 EST Tel , Service support , Cervical Spine CT 02/01/21 09:53 IMPRESSION: 1. No acute cervical spine abnormality. 2. Stable diffuse spondylosis. Individualized dose optimization techniques were used for this CT. at 1152 Reported and signed by: Sincere Belle MD Electronically Signed: Sincere Belle MD at 11:51 EST Tel , Service support , Lumbar Spine CT 02/01/21 09:53 Shoulder X-Ray 02/01/21 09:53 Discharge Plan Triage Chief Complaint: Dizziness ED Provider: Mehdi Hinojosa Dx/Rx/DC Orders Prescriptions: No Action carvedilol 3.125 MG tablet 3.125 mg PO BID RF: 0 ferrous sulfate 325 MG tablet 325 mg PO DAILY RF: 0 finasteride 5 MG tablet 5 mg PO DAILY RF: 0 ascorbic acid (vitamin C) 500 MG tablet 1,000 mg PO BID RF: 0 warfarin 5 MG tablet 10 mg PO MOTUWETHFR RF: 0 omeprazole 40 MG capsule,delayed release(DR/EC) 40 mg PO DAILY RF: 0 trazodone 300 MG tablet 300 mg PO QHS RF: 0 docusate sodium 100 MG capsule 100 mg PO BID RF: 0 lisinopril 10 MG tablet 10 mg PO DAILY RF: 0 pregabalin 100 mg Capsule 100 mg PO BID RF: 0 hydroxyzine HCl 25 mg Tablet 25 mg PO TID PRN (Reason: Anxiety) RF: 0 acetaminophen [Tylenol] 325 mg Tablet 650 mg PO Q6H PRN PRN (Reason: Pain Score 1-10/Temp > 100.7 F) Qty: 0 RF: 0 multivitamin Tablet 1 tab PO DAILY Qty: 1 RF: 0 ropinirole 0.5 mg tablet 0.5 mg PO QHS RF: 0 warfarin 5 mg tablet 12.5 mg PO SUSA RF: 0 paroxetine HCl 40 mg tablet 50 mg PO DAILY RF: 0 Spiriva with HandiHaler 18 mcg capsule, w/inhalation device 1 cap INHALATION BID RF: 0 furosemide 20 mg tablet 60 mg PO DAILY RF: 0 oxybutynin chloride 5 mg tablet 5 mg PO TID RF: 0 acamprosate 333 mg tablet,delayed release (DR/EC) 2 tab PO TID RF: 0 Primary Care Provider: Josue Cifuentes
[2021-02-01 10:40] LABS: Absolute Lymphocyte Count 1.14 X10^3/uL (0.83-4.51); Absolute Neutrophil Count 5.1 X10^3/uL (2.0-7.7); Basophil# 0.04 X10^3/uL; Basophil% 0.5 % (0-1); Eosinophil# 0.69 X10^3/uL; Eosinophils% 9.1 % (0-5); Hematocrit 38.6 % (40-54); Hemoglobin 13.3 g/dL (13.0-16.5); Lymphocyte # 1.14 X10^3/ul (0.83-4.51); Mean Corp Hgb Conc 34.5 g/dL (32-36); Mean Corpuscular Hgb 33.4 pg (27.0-32.0); Mean Platelet Vol. 9.4 fl (6.2-12.0); Monocyte# 0.68 X10^3/uL; Monocyte% 8.9 % (0-10); NRBC Flagged by Analyzer 0 % (0-5); Neutrophil # 5.05 X10^3/uL (2.7-7.7); Neutrophil % 66.2 % (47-70); Platelet Count 163 K/mm3 (150-450); RBC Distribution Width CV 12.6 % (11.6-14.6); RBC Distribution Width SD 45.3 fl (35.1-43.9); Red Blood Count 3.98 M/mm3 (4.6-6.2); White Blood Count 7.6 K/mm3 (4.4-11.0)
[2021-02-01 10:49] LABS: Prothrombin Time (Protime)PT. 30.4 SECONDS (11.7-14.9)
[2021-02-01 10:58] LABS: ALB/GLOB Ratio 0.9 RATIO (0.9-2.4); AST(SGOT) 31 U/L (15-37); Alanine Aminotransfer ALT/SGPT 28 U/L (16-61); Albumin, Serum 3.4 g/dL (3.2-5.0); Alkaline Phosphatase 81 U/L (45-117); Anion Gap 2 (5-15); BUN 8 mg/dL (7-18); BUN/Creat Ratio 10.3 RATIO (10-20); Calcium,Total 8.7 mg/dL (8.5-10.1); Chloride 103 mmol/L (98-107); Creatinine, Serum 0.78 mg/dL (0.70-1.30); EST Glomerular Filtration Rate 108 mL/min (>60); Est Glom Filt Rate - Afr Amer 130 mL/min (>60); Estimated Creatinine Clearance 79.03 ml/min; Globulin 3.9 g/dL (2.2-4.2); Glucose 106 mg/dL (74-106); Potassium 3.7 mmol/L (3.5-5.1); Protein, Total 7.3 g/dL (6.4-8.2); Sodium Level 135 mmol/L (136-145)
[2021-02-01] MEDS: Acetaminophen 325 MG Tablet 650 MG PO (12:40)
== END 2021-02-01 12:51 | disposition home or self-care (01) ==
PROVIDERS: Emergency Provider Emergency Medicine; PCP Family Medicine
DX: M54.2 Cervicalgia (principal); M25.512 Pain in left shoulder; F03.90 Unspecified dementia, unspecified severity, without behavioral disturbance, psychotic disturbance, mood disturbance, and anxiety; F41.9 Anxiety disorder, unspecified; J44.9 Chronic obstructive pulmonary disease, unspecified; F32.A Depression, unspecified; I10 Essential (primary) hypertension; K21.9 Gastro-esophageal reflux disease without esophagitis; E78.5 Hyperlipidemia, unspecified; F17.210 Nicotine dependence, cigarettes, uncomplicated; Z79.01 Long term (current) use of anticoagulants; Z95.0 Presence of cardiac pacemaker; Z79.899 Other long term (current) drug therapy
CPT/HCPCS: 70450; 72125; 72131; 73030; 80053; 85025; 85610; 93005; 99285; A4216

== ENCOUNTER 2021-03-07 05:51 | Inpatient (IN) | payer MEDICARE, MEDICAID, SELFPAY ==
[2021-03-07] VITALS (15 sets, daily range): BP systolic 143–207; BP diastolic 78–124; PULSE 78–120; RESP 14–36; TEMP 36.2–36.8; O2SAT 94–100; BMI 23.6
--- NOTE | 2021-03-07 06:06 | EDS_ITS ---
HPI History of Present Illness Chief Complaint: ETOH Intox Informant: patient Narrative Narrative: Presents for alcohol detoxification. Drinks a 12 pack a day. Last drink an hour ago. Drinks beer. Morning tremors, withdrawal seizures in the past however cannot recall when. Smokes marijuana daily. Denies suicidal homicidal ideations. He states he relapsed a month ago. He states recently did receive help here. From records list managed in October 4 months ago and seen by myself and admitted. Apparently was placed on phenobarbital and was doing better. Has not taken his medication for the past week history of paroxysmal atrial fibrillation previously on warfarin, however recently reported by nursing he was taken off by his PCP and placed on Lovenox. Currently reports nausea. Prior similar symptoms: Yes PFSH [facility] [place] Medical History Alcohol dependence Alcohol use Alcoholic cirrhosis Alcoholism /alcohol abuse Ambulates with cane Anxiety Arthritis Blackout BPH (benign prostatic hyperplasia) Bruising Cardiology follow-up encounter Chronic cough COPD (chronic obstructive pulmonary disease) Dementia Depression Easy bruising Essential hypertension Excessive bleeding Gastric reflux High cholesterol History of GI bleed History of pacemaker History of wrist fracture HTN (hypertension) Hyperlipidemia Injury of back Injury of head and neck Marijuana use Neuropathy Nonrheumatic aortic (valve) insufficiency Paroxysmal atrial fibrillation Presence of permanent cardiac pacemaker Prostate disease Shortness of breath on exertion Smoker Wears dentures Wears glasses Wears hearing aid Home Medications carvedilol 3.125 mg PO BID 08/18/17 [History Last Taken 05/12/20] ferrous sulfate 325 mg PO DAILY 08/18/17 [History Last Taken 05/12/20] finasteride 5 mg PO DAILY 08/18/17 [History Last Taken 05/12/20] oxybutynin chloride 5 mg tablet 5 mg PO TID tab 11/29/18 [History Last Taken 05/12/20] acamprosate 333 mg tablet,delayed release 2 tab PO TID tab 12/06/19 [History Last Taken 05/12/20] ascorbic acid (vitamin C) 1,000 mg PO BID 01/12/20 [History Last Taken 05/12/20] docusate sodium 100 mg PO BID 05/13/20 [History Last Taken 05/12/20] lisinopril 10 mg PO DAILY 05/13/20 [History Last Taken 05/12/20] omeprazole 40 mg PO DAILY 05/13/20 [History Last Taken 05/12/20] trazodone 300 mg PO QHS 05/13/20 [History Last Taken 05/12/20] pregabalin 100 mg PO BID 09/04/20 [History Last Taken Unknown] hydroxyzine HCl 25 mg PO TID PRN 11/10/20 [History Last Taken Unknown] acetaminophen [Tylenol] 650 mg PO Q6H PRN PRN #0 tab 11/12/20 [Rx Last Taken Unknown] multivitamin 1 tab PO DAILY #1 tab 11/12/20 [Rx Last Taken Unknown] furosemide 60 mg PO DAILY 02/01/21 [History Last Taken Unknown] paroxetine HCl 50 mg PO DAILY 02/01/21 [History Last Taken Unknown] ropinirole 0.5 mg PO QHS 02/01/21 [History Last Taken Unknown] tiotropium bromide [Spiriva with HandiHaler] 1 cap INHALATION BID 02/01/21 [History Last Taken Unknown] atorvastatin 20 mg PO DAILY 03/07/21 [History Last Taken Unknown] donepezil 10 mg PO DAILY 03/07/21 [History Last Taken Unknown] enoxaparin 60 mg SUBCUT DAILY 03/07/21 [History Last Taken Unknown] folic acid 1 mg PO DAILY 03/07/21 [History Last Taken Unknown] Allergy/AdvReac Type Severity Reaction Status Date / Time ibuprofen AdvReac Upset Verified 03/07/21 05:55 Stomach metronidazole AdvReac Upset Verified 03/07/21 05:55 Stomach naproxen [From Aleve] AdvReac gi upset Verified 03/07/21 05:55 Family History Mother Heart disease Father Heart disease CVA (cerebral vascular accident) Brother Heart disease Diabetes Sister Heart disease Surgical History H/O mitral valve replacement with mechanical valve (~2009) History of ankle surgery History of arthroscopy of left shoulder History of cholecystectomy History of hernia repair History of hip surgery History of sinus surgery Status post mitral valve replacement (~2009) Social History Smoking Status: Current every day smoker tobacco type: cigarettes alcohol intake: former year quit: 2017 substance use type: does not use ROS ROS ED Constitutional Constitutional ED: Denies chills, fever(s) or sweats Eyes Eyes: Denies change in vision ENT ENT ED: Denies dysphagia or sore throat Cardiovascular Cardiovascular: Denies chest pain, leg edema, palpitations or racing heartbeat Respiratory/Chest Respiratory/Chest: Denies cough, dyspnea or dyspnea on exertion Gastrointestinal Gastrointestinal: Reports nausea; Denies abdominal pain, diarrhea or vomiting Genitourinary Genitourinary ED: Denies dysuria, hematuria or urinary frequency Musculoskeletal Musculoskeletal: Denies back pain, extremity pain or neck pain Integumentary Denies rash or wounds Neurologic Neurologic: Denies headache(s), paresthesias or weakness EXAM Physical Exam Const Vital Signs: 03/07/21 05:52 Temperature 98.1 F Temperature Source Oral Pulse Rate 93 Respiratory Rate 18 Blood Pressure 176/88 H Blood Pressure Mean 117 Pulse Ox 98 Oxygen Delivery Method Room Air Positive well nourished and well developed General Appearance ED: well developed and NAD HEENT Reports moist mucous membranes normocephalic and atraumatic Eyes PERRL, EOMs intact bilaterally and conjunctivae normal General Eye ED: Yes normal appearance of both eyes Neck no lymphadenopathy and supple General: Negative for tenderness Chest Wall Chest: Negative for tenderness Resp normal respiratory effort and normal air movement Effort and Inspection: symmetric chest movement; Negative for respiratory distress Cardio regular rate, regular rhythm and no murmurs Peripheral Pulses: pulses 2+ throughout GI normal to inspection, nondistended, normoactive bowel sounds and non-tender Palpation: Negative for guarding or rebound tenderness present Back/Spine no CVA tenderness and no thoracic nor lumbar tenderness Extremity normal to inspection General Extremety ED: Negative for edema or tenderness General Extremity: Negative for edema Neuro oriented x3 and no sensory deficits noted Sensorium / Orientation: awake and alert Psych Psych Narrative: No suicidal or homicidal ideations. Skin no rashes or lesions noted and no wounds MDM MDM MDM Narrative Medical decision making narrative: Patient vital signs stable. Heart rate regular on exam. Will check labs alcohol and tox screen. Will give Zofran and Pepcid. Will plan for admission for alcohol assistance. Labs are pending. I discussed with hospitalist, Dr. Menon for admission. Laboratory results no alcohol 286 potassium 3.2. He was given oral potassium. Tox screen pending results. He does have a reported history of THC use. Lab Data Labs: Laboratory Results - last 24 hr 03/07/21 03/07/21 03/07/21 06:10 06:10 06:10 WBC 4.9 RBC 3.96 L Hgb 11.3 L Hct 34.3 L MCV 86.6 MCH 28.5 MCHC 32.9 RDW Std Deviation 48.9 H RDW Coeff of Harjeet 15.3 H Plt Count 113 L MPV 10.4 Immature Gran % (Auto) 0.200 Neut % (Auto) 62.5 Lymph % (Auto) 21.4 Nance % (Auto) 12.0 H Eos % (Auto) 3.3 Baso % (Auto) 0.6 Absolute Neuts (auto) 3.1 Absolute Lymphs (auto) 1.05 Nucleated RBC % 0 PT 12.3 INR 1.0 Sodium 136 Potassium 3.2 L Chloride 99 Carbon Dioxide 23.0 Anion Gap 14 BUN 2 L Creatinine 0.57 L Estim Creat Clear Calc 106.76 Est GFR (MDRD) Af Amer 186 Est GFR (MDRD) Non-Af 154 BUN/Creatinine Ratio 3.5 L Glucose 89 Calcium 8.0 L Magnesium Total Bilirubin 0.50 AST 144 H ALT 90 H Alkaline Phosphatase 90 Total Protein 7.3 Albumin 3.4 Globulin 3.9 Albumin/Globulin Ratio 0.9 Ethyl Alcohol 03/07/21 03/07/21 06:10 06:10 WBC RBC Hgb Hct MCV MCH MCHC RDW Std Deviation RDW Coeff of Harjeet Plt Count MPV Immature Gran % (Auto) Neut % (Auto) Lymph % (Auto) Nance % (Auto) Eos % (Auto) Baso % (Auto) Absolute Neuts (auto) Absolute Lymphs (auto) Nucleated RBC % PT INR Sodium Potassium Chloride Carbon Dioxide Anion Gap BUN Creatinine Estim Creat Clear Calc Est GFR (MDRD) Af Amer Est GFR (MDRD) Non-Af BUN/Creatinine Ratio Glucose Calcium Magnesium 1.8 Total Bilirubin AST ALT Alkaline Phosphatase Total Protein Albumin Globulin Albumin/Globulin Ratio Ethyl Alcohol 286.0 Discharge Plan Triage Chief Complaint: ETOH Intox ED Provider: Gonzalo Mir Dx/Rx/DC Orders Clinical Impression: Alcohol abuse, Noncompliance with medications, Nausea, Acute hypokalemia, Cannabis dependence Primary Care Provider: Josue Cifuentes Disposition Disposition: Acute Care Hospital
[2021-03-07] MEDS: Famotidine 200 MG/20 ML MDV 20 MG in 0.9% Normal Saline (Pres. free 8 ML 300 MG IV (06:16)
[2021-03-07] MEDS: Ondansetron 4 MG/2 ML Vial IV ×2 (06:16→15:43)
[2021-03-07 06:22] LABS: Absolute Lymphocyte Count 1.05 X10^3/uL (0.83-4.51); Absolute Neutrophil Count 3.1 X10^3/uL (2.0-7.7); Basophil# 0.03 X10^3/uL; Basophil% 0.6 % (0-1); Eosinophil# 0.16 X10^3/uL; Eosinophils% 3.3 % (0-5); Hematocrit 34.3 % (40-54); Hemoglobin 11.3 g/dL (13.0-16.5); Lymphocyte # 1.05 X10^3/ul (0.83-4.51); Lymphocyte % 21.4 % (19-41); Mean Corp Hgb Conc 32.9 g/dL (32-36); Mean Corpuscular Hgb 28.5 pg (27.0-32.0); Mean Corpuscular Volume 86.6 fL (80-94); Mean Platelet Vol. 10.4 fl (6.2-12.0); Monocyte# 0.59 X10^3/uL; NRBC Flagged by Analyzer 0 % (0-5); Neutrophil # 3.06 X10^3/uL (2.7-7.7); Neutrophil % 62.5 % (47-70); Platelet Count 113 K/mm3 (150-450); RBC Distribution Width CV 15.3 % (11.6-14.6); RBC Distribution Width SD 48.9 fl (35.1-43.9); Red Blood Count 3.96 M/mm3 (4.6-6.2); White Blood Count 4.9 K/mm3 (4.4-11.0)
[2021-03-07 06:31] LABS: Prothrombin Time (Protime)PT. 12.3 SECONDS (11.7-14.9)
[2021-03-07 06:36] LABS: ALB/GLOB Ratio 0.9 RATIO (0.9-2.4); AST(SGOT) 144 U/L (15-37); Alanine Aminotransfer ALT/SGPT 90 U/L (16-61); Albumin, Serum 3.4 g/dL (3.2-5.0); Alkaline Phosphatase 90 U/L (45-117); Anion Gap 14 (5-15); BUN 2 mg/dL (7-18); BUN/Creat Ratio 3.5 RATIO (10-20); Chloride 99 mmol/L (98-107); Creatinine, Serum 0.57 mg/dL (0.70-1.30); EST Glomerular Filtration Rate 154 mL/min (>60); Est Glom Filt Rate - Afr Amer 186 mL/min (>60); Estimated Creatinine Clearance 106.76 ml/min; Globulin 3.9 g/dL (2.2-4.2); Glucose 89 mg/dL (74-106); Potassium 3.2 mmol/L (3.5-5.1); Protein, Total 7.3 g/dL (6.4-8.2); Sodium Level 136 mmol/L (136-145)
--- NOTE | 2021-03-07 06:36 | HP.PCM.HOS_ITS ---
HPI - General HPI Narrative JANET CLARKE, is a 61 M with a significant history of alcohol abuse; tobacco abuse and mitral valve replacements who presents to the emergency department with help with alcohol detoxification. Patient drinks about 12 packs of 16 ounces beer per day. He has been drinking since age 10. At one time he was s asmita for 9 years. He recently became sober again and resumed drinking about a month ago. Indeed patient was at a hospital in October 2020 for detoxification. Last time he drank was about 12 before presentation. He denies any leeanne withdrawal symptoms at this time. [facility] Medical History Alcohol dependence Alcohol use Alcoholic cirrhosis Alcoholism /alcohol abuse Ambulates with cane Anxiety Arthritis Blackout BPH (benign prostatic hyperplasia) Bruising Cardiology follow-up encounter Chronic cough COPD (chronic obstructive pulmonary disease) Dementia Depression Easy bruising Essential hypertension Excessive bleeding Gastric reflux High cholesterol History of GI bleed History of pacemaker History of wrist fracture HTN (hypertension) Hyperlipidemia Injury of back Injury of head and neck Marijuana use Neuropathy Nonrheumatic aortic (valve) insufficiency Paroxysmal atrial fibrillation Presence of permanent cardiac pacemaker Prostate disease Shortness of breath on exertion Smoker Wears dentures Wears glasses Wears hearing aid Home Medications carvedilol 3.125 mg PO BID 08/18/17 [History Last Taken 05/12/20] ferrous sulfate 325 mg PO DAILY 08/18/17 [History Last Taken 05/12/20] finasteride 5 mg PO DAILY 08/18/17 [History Last Taken 05/12/20] oxybutynin chloride 5 mg tablet 5 mg PO TID tab 11/29/18 [History Last Taken 05/12/20] acamprosate 333 mg tablet,delayed release 2 tab PO TID tab 12/06/19 [History Last Taken 05/12/20] ascorbic acid (vitamin C) 1,000 mg PO BID 01/12/20 [History Last Taken 05/12/20] docusate sodium 100 mg PO BID 05/13/20 [History Last Taken 05/12/20] lisinopril 10 mg PO DAILY 05/13/20 [History Last Taken 05/12/20] omeprazole 40 mg PO DAILY 05/13/20 [History Last Taken 05/12/20] trazodone 300 mg PO QHS 05/13/20 [History Last Taken 05/12/20] pregabalin 100 mg PO BID 09/04/20 [History Last Taken Unknown] hydroxyzine HCl 25 mg PO TID PRN 11/10/20 [History Last Taken Unknown] acetaminophen [Tylenol] 650 mg PO Q6H PRN PRN #0 tab 11/12/20 [Rx Last Taken Unknown] multivitamin 1 tab PO DAILY #1 tab 11/12/20 [Rx Last Taken Unknown] furosemide 60 mg PO DAILY 02/01/21 [History Last Taken Unknown] paroxetine HCl 50 mg PO DAILY 02/01/21 [History Last Taken Unknown] ropinirole 0.5 mg PO QHS 02/01/21 [History Last Taken Unknown] tiotropium bromide [Spiriva with HandiHaler] 1 cap INHALATION BID 02/01/21 [History Last Taken Unknown] atorvastatin 20 mg PO DAILY 03/07/21 [History Last Taken Unknown] donepezil 10 mg PO DAILY 03/07/21 [History Last Taken Unknown] enoxaparin 60 mg SUBCUT DAILY 03/07/21 [History Last Taken Unknown] folic acid 1 mg PO DAILY 03/07/21 [History Last Taken Unknown] Allergy/AdvReac Type Severity Reaction Status Date / Time ibuprofen AdvReac Upset Verified 03/07/21 05:55 Stomach metronidazole AdvReac Upset Verified 03/07/21 05:55 Stomach naproxen [From Aleve] AdvReac gi upset Verified 03/07/21 05:55 Family History Mother Heart disease Father Heart disease CVA (cerebral vascular accident) Brother Heart disease Diabetes Sister Heart disease Surgical History H/O mitral valve replacement with mechanical valve (~2009) History of ankle surgery History of arthroscopy of left shoulder History of cholecystectomy History of hernia repair History of hip surgery History of sinus surgery Status post mitral valve replacement (~2009) Social History Smoking Status: Current every day smoker tobacco type: cigarettes alcohol intake: former year quit: 2016 substance use type: does not use ROS ROS Narrative Constitutional: Denies fever, chills, fatigue, anorexia and change in weight Eyes: Denies blurry vision, change in eye color, change in vision, discharge from eye(s), double vision, erythema, eye pain, loss of vision or other HEENT: Denies abnormal hearing, dysphagia, ear pain, epistaxis, headache(s), hearing loss, nasal congestion, nasal discharge, post nasal drip, sinus pressure, sore throat or other Cardiovascular: Denies chest pain or palpitations. Denies dyspnea on exertion, orthopnea and paroxysmal nocturnal dyspnea Respiratory/Chest: Denies cough, excessive phlegm production, shortness of breath with exertion and wheezing Gastrointestinal: Denies abdominal pain, coffee ground emesis, constipation, diarrhea, dyspepsia, hematemesis, hematochezia, loose stools, melena, nausea, vomiting or other Genitourinary: Denies burning urination, difficulty urinating, dysuria, hematuria, nocturia, urinary frequency, urinary hesitancy, urinary incontinence, urinary urgency or other Musculoskeletal: Reports neck pain. Denies arthralgias, back pain, joint pain, joint stiffness, joint swelling, myalgias, or other Neurologic: Denies abnormal gait, abnormal speech, confusion, disequilibrium, dizziness, focal weakness, headache(s), numbness, paresthesias, seizure-like activity, seizures, syncope, tingling, tremor(s) or other Psychiatric: Reports depression and anxiety. Denies homicidal ideation, suicidal ideation or other Endocrinology: Denies change in body appearance, cold intolerance, excessive sweating, heat intolerance, polydipsia, polyuria or other Hematologic/Lymphatic: Denies anemia, easy bleeding, easy bruising, lymphadenopathy or other Integumentary: Denies rashes Allergic/Immunologic: Denies rhinitis, hives, eczema, asthma or other Vital Signs Vital Signs Vital Signs: 03/07/21 05:52 Temperature 98.1 F Temperature Source Oral Pulse Rate 93 Respiratory Rate 18 Blood Pressure 176/88 H Blood Pressure Mean 117 Pulse Ox 98 Oxygen Delivery Method Room Air Weight Weight: 60.6 kg Body Mass Index (BMI) 23.6 Physical Exam Narrative Physical exam: General: Thin frame. Head: Normocephalic, atraumatic, no tenderness Eyes: PERRLA, EOMI ENT, no trauma, moist mucous membranes, no rhinorrhea Neck: Nontender, full range of motion, no spinal tenderness, deformities, step- off CVS: Regular rate and rhythm. Metallic click sound. Respiratory : clear to auscultation bilaterally, chest wall nontender, no wheezing Abdomen: Soft, nontender, nondistended, normal bowel sounds, no masses : Deferred Back: Nontender, no CVA tenderness, no midline spinal tenderness, deformities, step-offs Extremities: Nontender full range of motion, no trauma. Muscle wasting Skin: Normal color, no trauma, abrasions Neuro: Alert, oriented, cranial nerves II through XII grossly intact. Psychiatry: Normal mood. Normal affect. Not depressed. Not anxious. Results Lab / Micro Data Result Diagrams: 03/07/21 06:10 03/07/21 06:10 Labs: Laboratory Results - last 24 hr 03/07/21 06:10: WBC 4.9, RBC 3.96 L, Hgb 11.3 L, Hct 34.3 L, MCV 86.6, MCH 28.5, MCHC 32.9, RDW Std Deviation 48.9 H, RDW Coeff of Harjeet 15.3 H, Plt Count 113 L, MPV 10.4, Immature Gran % (Auto) 0.200, Neut % (Auto) 62.5, Lymph % (Auto) 21.4, [place] % (Auto) 12.0 H, Eos % (Auto) 3.3, Baso % (Auto) 0.6, Absolute Neuts (auto) 3.1, Absolute Lymphs (auto) 1.05, Nucleated RBC % 0 03/07/21 06:10: PT 12.3, INR 1.0 03/07/21 06:10: Sodium 136, Potassium 3.2 L, Chloride 99, Carbon Dioxide 23.0, Anion Gap 14, BUN 2 L, Creatinine 0.57 L, Estim Creat Clear Calc 106.76, Est GFR (MDRD) Af Amer 186, Est GFR (MDRD) Non-Af 154, BUN/Creatinine Ratio 3.5 L, Glucose 89, Calcium 8.0 L, Total Bilirubin 0.50, AST 144 H, ALT 90 H, Alkaline Phosphatase 90, Total Protein 7.3, Albumin 3.4, Globulin 3.9, Albumin/Globulin Ratio 0.9 Assessment & Plan Assessment/Plan (1) Tobacco abuse: (2) Alcohol abuse: (3) History of prosthetic mitral valve: (4) Noncompliance with medications: PLAN: Alcohol dependence and desire for detoxification Patient be started on phenobarbital and other adjunctive medications: dicyclomine as needed; Vistaril as needed; Imodium as needed; Zofran as needed; scheduled thiamine; and schedule folic acid. Continue home gabapentin and trazodone. Hold home acamprosate Monitor CIWA score Tobacco abuse Counseled Declined nicotine patch Hypokalemia Potassium of 3.2. Replaced at the emergency department. Trend BMP. Check magnesium. Elevated liver enzymes. AST of 144, ALT of 90, alcoholic pattern. Counseled. Suspected malnutrition Patient with muscle wasting. Nutritional consult. Ensure Enlive ordered. History of mitral valve replacement with subtherapeutic INR. Reports he is on Lovenox twice daily but does not take. Resume Lovenox. History of diastolic heart failure Stable Echocardiogram on 08/11/2020 showed an ejection fraction of 60% and with evidence of diastolic function. Echocardiogram dating back to 2013 showed normal EF. Lasix continued. Hypertension Blood pressure is not within goal Lasix; Lisinopril; Lasix and carvedilol continued. Trend blood pressure and adjust blood pressure medications. DVT prophylaxis: Not indicated since patient will be restarted on home Lovenox Charges/Coding Multi Select Codes Visit Charges Visit Charges: 72887 Init Hosp L3
--- NOTE | 2021-03-07 06:49 | NURSING ---
129 DR SORENSEN ALCOHOL DEPENDENCE, NONCOMPLIANCE WITH MEDICATIONS
[2021-03-07] MEDS: Potassium Chloride Oral Tablet 20 MEQ 40 MEQ PO (06:55)
[2021-03-07 07:03] LABS: Magnesium 1.8 mg/dL (1.6-2.6)
[2021-03-07 07:12] LABS: Amphetamine Urine VISTA NEGATIVE (<1000 ng/mL); Barbiturate Urine VISTA NEGATIVE (< 200 ng/mL); Benzodiazepine Urine VISTA NEGATIVE (< 200 ng/mL); Cocaine Urine VISTA NEGATIVE (< 300 ng/mL); Ecstacy Urine VISTA NEGATIVE (< 500 ng/mL); Methadone Urine VISTA NEGATIVE (< 300 ng/mL); PCP Urine VISTA NEGATIVE (< 25 ng/mL); THC Urine VISTA POSITIVE (< 50 ng/mL); Vista UDS pH Range 7
[2021-03-07] MEDS: Acetaminophen 325 MG Tablet 650 MG PO (11:51)
[2021-03-07] MEDS: Phenobarbital 32.4 MG Tablet 97.2 MG PO (15:34)
--- NOTE | 2021-03-07 18:59 | ED.RN ---
PT EDUCATED TO LEAVE PROTOTYPE ENGINEER MANAGER ON, PT REFUSES. WILL CONTINUE TO MONITOR.
--- NOTE | 2021-03-07 19:06 | ED.RN ---
LIDODERM PATCH WAS GIVEN AAT 1829 BY JORGE SALAS. UNABLE TO CHART IN THE MAR IT WOULDN'T SAVE.
--- NOTE | 2021-03-07 21:15 | PCM.PN.BLA ---
Progress Note Patient coded at the emergency department. Reportedly he was found on the floor and he was blue. Emergency department doctors run code. Patient was found in V. fib. Patient was defibrillated. He received amiodarone, bicarb, magnesium, epinephrine. He was shocked twice. CPR was done. Patient was intubated.
--- NOTE | 2021-03-07 21:19 | EKG12_ITS ---
Test Reason : POSS STEMI Blood Pressure : / mmHG Vent. Rate : 127 BPM Atrial Rate : 127 BPM P-R Int : 172 ms QRS Dur : 100 ms QT Int : 332 ms P-R-T Axes : 000 070 081 degrees QTc Int : 482 ms Poor data quality, interpretation may be adversely affected Sinus tachycardia ST elevation consider inferior injury or acute infarct ACUTE [place] / STEMI Consider right ventricular involvement in acute inferior infarct Abnormal ECG Confirmed by MARIUM CORBETT, KENYATTA ([id number]), news video editor JONNATHAN MERCEDES ([id number]) on 03/10/2021 11:19:54 AM Referred By: Bertha Murillo Confirmed By:KENYATTA CAUSEY MD
--- NOTE | 2021-03-07 21:19 | RAD_ITS ---
EXAM: XR CHEST, 1 VIEW CLINICAL INDICATION: STEMI TECHNIQUE: Frontal view of the chest. This report was created using [employer] report generation technology. COMPARISON: Chest x-ray 01/13/2020 FINDINGS: LUNGS AND PLEURAL SPACES: New left lower lobe and right multilobar pneumonia. Calcified small granuloma at the left left lower lobe. No pneumothorax. No effusion. HEART: No cardiomegaly. MEDIASTINUM: Right hilar adenopathy is probably reactive. BONES/JOINTS: Diffuse osteopenia. Degenerative changes of the spine and acromioclavicular joints. SOFT TISSUES: Unremarkable. LYMPH NODES: Calcified left AP window region lymph node is compatible with old granulomatous disease. TUBES, LINES AND DEVICES: Status post intubation with tip of endotracheal tube located 4.7 cm above the rose. Transesophageal catheter has its tip off the examination with side-port below the GE junction. Stable appearance of a right-sided PICC/pacer with intact wires/leads. RAD/Chest 1 View (Portable) IMPRESSION: Bilateral pneumonia. Follow to resolution. Electronically Signed: Toño Meade MD at 22:51 EST Tel , Service support ,
[2021-03-07] MEDS: TICAGRELOR 90 MG TABLET 180 MG GT (21:27)
[2021-03-07] MEDS: Heparin 10,000 UNITS/10 ML Vial 4000 UNITS IV (21:27)
--- NOTE | 2021-03-07 21:29 | PN_ITS ---
Progress Note Initial EKG with ROSC was paced rhythm. Later EKG showed inferior ST elevation SC with reciprocal changes. Emergent department doctor discussed case with a lead cargoman. Patient received Brilinta and heparin 4000 units bolus subcu at emergency department. Cardiology will evaluate patient. Plan will be eventual transfer to the ICU.
--- NOTE | 2021-03-07 21:29 | PCM.PN.BLA ---
Progress Note Initial EKG with ROSC was paced rhythm. Later EKG showed inferior ST elevation DC with reciprocal changes. Emergent department doctor discussed case with a nailhead puncher. Patient received Brilinta and heparin 4000 units bolus subcu at emergency department. Cardiology will evaluate patient. Plan will be eventual transfer to the ICU.
[2021-03-07] MEDS: Aspirin 81 MG TAB.CHEW 324 MG PO (21:30)
[2021-03-07 21:45] LABS: Allen Test Positive; Base Excess -12 mmol/L (-2 to +2); Bicarbonate 17.4 mmol/L (22-26); Blood Gas Specimen Type ART; FI02 100; Mode AC; O2 Delivery Device ET Tube; PEEP 5; PO2 464 mmHG (75-100); RR 14; SITE R Radial; SO2 100 % (95-99); Total Carbon Dioxide 19 mmol/L; Vt 350; pCO2 53.1 mmHg (35-45); pH 7.13 (7.35-7.45)
[2021-03-07] MEDS: Labetalol (Prefilled) 20 MG/4 ML 10 MG IV (21:48)
[2021-03-07] MEDS: Propofol 200 MG/20 ML Vial 60 MG IV BOLUS (21:50)
--- NOTE | 2021-03-07 22:16 | CON.PCM.CA_ITS ---
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 fib, shocked twice amiodarone was given IV and intubated Patient has been in the ER from last night with the alcohol intoxication and electrolyte abnormality with hypokalemia. Known to have a cardiac history with a history of mitral valve prosthesis, permanent pacemaker, paroxysmal atrial fibrillation and was on anticoagulation. Also patient has cannabis dependence and tobacco abuse. He drinks around 16 ounces of beer daily Cardiac care plan recommendations; 1. Repeat EKG in the ER revealed atrial sensed, ventricular paced rhythm 2. Review of the cardiac record his last visit to the office the echocardiogram showed LV function preserved with normal functioning mitral valve prosthesis, mild to moderate AI and mild left atrial enlargement with normal RV systolic pressure 3. Noted he has a hypokalemia, hyponatremia with a serum potassium of 3.2 Recommendation is to correct electrolytes and to keep serum magnesium above 2 and serum potassium above 4 4. No evidence of ST segment elevation in the EKG recommendation is to treat conservatively 5. Noted INR is subtherapeutic Target INR [2?3]. 6. Primary emergency man is Dr. Medina HPI Consult Data Date of Consult: 03/07/21 HPI Narrative Reason for Consultation: Post cardiac arrest with V. fib/change in the EKG/Artifact HPI Narrative: JANET CLARKE, is a 61 M who presents [facility] Medical History Alcohol dependence Alcohol use Alcoholic cirrhosis Alcoholism /alcohol abuse Ambulates with cane Anxiety Arthritis Blackout BPH (benign prostatic hyperplasia) Bruising Cardiology follow-up encounter Chronic cough COPD (chronic obstructive pulmonary disease) Dementia Depression Easy bruising Essential hypertension Excessive bleeding Gastric reflux High cholesterol History of GI bleed History of pacemaker History of wrist fracture HTN (hypertension) Hyperlipidemia Injury of back Injury of head and neck Marijuana use Neuropathy Nonrheumatic aortic (valve) insufficiency Paroxysmal atrial fibrillation Presence of permanent cardiac pacemaker Prostate disease Shortness of breath on exertion Smoker Wears dentures Wears glasses Wears hearing aid Home Medications carvedilol 3.125 mg PO BID 08/18/17 [History Last Taken 05/12/20] ferrous sulfate 325 mg PO DAILY 08/18/17 [History Last Taken 05/12/20] finasteride 5 mg PO DAILY 08/18/17 [History Last Taken 05/12/20] oxybutynin chloride 5 mg tablet 5 mg PO TID tab 11/29/18 [History Last Taken 05/12/20] acamprosate 333 mg tablet,delayed release 2 tab PO TID tab 12/06/19 [History Last Taken 05/12/20] ascorbic acid (vitamin C) 1,000 mg PO BID 01/12/20 [History Last Taken 05/12/20] docusate sodium 100 mg PO BID 05/13/20 [History Last Taken 05/12/20] lisinopril 10 mg PO DAILY 05/13/20 [History Last Taken 05/12/20] omeprazole 40 mg PO DAILY 05/13/20 [History Last Taken 05/12/20] trazodone 300 mg PO QHS 05/13/20 [History Last Taken 05/12/20] pregabalin 100 mg PO BID 09/04/20 [History Last Taken Unknown] hydroxyzine HCl 25 mg PO TID PRN 11/10/20 [History Last Taken Unknown] acetaminophen [Tylenol] 650 mg PO Q6H PRN PRN #0 tab 11/12/20 [Rx Last Taken Unknown] multivitamin 1 tab PO DAILY #1 tab 11/12/20 [Rx Last Taken Unknown] furosemide 60 mg PO DAILY 02/01/21 [History Last Taken Unknown] paroxetine HCl 50 mg PO DAILY 02/01/21 [History Last Taken Unknown] ropinirole 0.5 mg PO QHS 02/01/21 [History Last Taken Unknown] tiotropium bromide [Spiriva with HandiHaler] 1 cap INHALATION BID 02/01/21 [History Last Taken Unknown] atorvastatin 20 mg PO DAILY 03/07/21 [History Last Taken Unknown] donepezil 10 mg PO DAILY 03/07/21 [History Last Taken Unknown] enoxaparin 60 mg SUBCUT DAILY 03/07/21 [History Last Taken Unknown] folic acid 1 mg PO DAILY 03/07/21 [History Last Taken Unknown] Allergy/AdvReac Type Severity Reaction Status Date / Time ibuprofen AdvReac Upset Verified 03/07/21 05:55 Stomach metronidazole AdvReac Upset Verified 03/07/21 05:55 Stomach naproxen [From Aleve] AdvReac gi upset Verified 03/07/21 05:55 Family History Mother Heart disease Father Heart disease CVA (cerebral vascular accident) Brother Heart disease Diabetes Sister Heart disease Surgical History H/O mitral valve replacement with mechanical valve (~2009) History of ankle surgery History of arthroscopy of left shoulder History of cholecystectomy History of hernia repair History of hip surgery History of sinus surgery Status post mitral valve replacement (~2009) Social History Smoking Status: Current every day smoker tobacco type: cigarettes alcohol intake: former year quit: 2016 substance use type: does not use Physical Exam Narrative Post cardiac arrest with V. fib shocked twice in the ER, intubated Cardiac exam and mechanical mitral valve prosthesis Chest exam bilateral inspiratory rales Risk Stratification Risk Stratification Applicable: No Objective Data Vital Signs: Vital Signs Temp Pulse Resp BP Pulse Ox 97.9 F 86 33 H 179/102 H 99 03/07/21 21:45 03/07/21 21:45 03/07/21 21:45 03/07/21 21:45 03/07/21 21:45 Oxygen Delivery Method Mechanical Ventilator Weight: 133 lb 9.602 oz Body Mass Index (BMI) 23.6 Intake & Output: Intake and Output for Last 24 Hours 03/05/21 03/06/21 03/07/21 23:59 23:59 23:59 Intake Total Balance Lab / Micro Data Result Diagrams: 03/07/21 06:10 03/07/21 06:10 Labs: Laboratory Results - last 24 hr 03/07/21 06:10: WBC 4.9, RBC 3.96 L, Hgb 11.3 L, Hct 34.3 L, MCV 86.6, MCH 28.5, MCHC 32.9, RDW Std Deviation 48.9 H, RDW Coeff of Harjeet 15.3 H, Plt Count 113 L, MPV 10.4, Immature Gran % (Auto) 0.200, Neut % (Auto) 62.5, Lymph % (Auto) 21.4, Frontier % (Auto) 12.0 H, Eos % (Auto) 3.3, Baso % (Auto) 0.6, Absolute Neuts (auto) 3.1, Absolute Lymphs (auto) 1.05, Nucleated RBC % 0 03/07/21 06:10: PT 12.3, INR 1.0 03/07/21 06:10: Sodium 136, Potassium 3.2 L, Chloride 99, Carbon Dioxide 23.0, Anion Gap 14, BUN 2 L, Creatinine 0.57 L, Estim Creat Clear Calc 106.76, Est GFR (MDRD) Af Amer 186, Est GFR (MDRD) Non-Af 154, BUN/Creatinine Ratio 3.5 L, Glucose 89, Calcium 8.0 L, Total Bilirubin 0.50, AST 144 H, ALT 90 H, Alkaline Phosphatase 90, Total Protein 7.3, Albumin 3.4, Globulin 3.9, Albumin/Globulin Ratio 0.9 03/07/21 06:10: Ethyl Alcohol 286.0 03/07/21 06:10: Magnesium 1.8 03/07/21 06:10: Phenobarbital < 2.1 L 03/07/21 06:51: Urine Opiates Screen NEGATIVE, Urine Methadone Screen NEGATIVE, Ur Barbiturates Screen NEGATIVE, Ur Phencyclidine Scrn NEGATIVE, Ur Amphetamines Screen NEGATIVE, U Methamphetamin-MDMA NEGATIVE, U Benzodiazepines Scrn NEGATIVE, Urine Cocaine Screen NEGATIVE, U Cannabinoids Screen POSITIVE H, Ur Drug Screen Comment Micro: Microbiology 03/07/21 06:08 Nasal Secretion SARS-CoV-2 Antigen (Rapid) - Final ABG Data ABG results: ABG 03/07/21 21:41 Specimen Type ART Sample Site R Radial pH 7.13 L* Bicarbonate Actual 17.4 L Total CO2 19 Base Excess -12 L O2 Saturation 100 H O2 % 100 ABG pCO2 53.1 H ABG pO2 464 H* Lev Test Positive Respiration Rate 14 O2 Delivery Device ET Tube Vent Mode AC Tidal Volume 350 POC PEEP 5 Crit Call To/Read Back Yes Cardiology Labs/Tests 03/07/21 06:10: WBC 4.9, RBC 3.96 L, Hgb 11.3 L, Hct 34.3 L, MCV 86.6, MCH 28.5, MCHC 32.9, Plt Count 113 L, MPV 10.4, Immature Gran % (Auto) 0.200, Neut % (Auto) 62.5, Lymph % (Auto) 21.4, Frontier % (Auto) 12.0 H, Eos % (Auto) 3.3, Baso % (Auto) 0.6, Absolute Neuts (auto) 3.1, Nucleated RBC % 0 03/07/21 06:10: PT 12.3, INR 1.0 03/07/21 06:10: Sodium 136, Potassium 3.2 L, Chloride 99, Carbon Dioxide 23.0, Anion Gap 14, BUN 2 L, Creatinine 0.57 L, Est GFR (MDRD) Af Amer 186, Est GFR (MDRD) Non-Af 154, BUN/Creatinine Ratio 3.5 L, Glucose 89, Calcium 8.0 L, Total Bilirubin 0.50 03/07/21 06:10: Magnesium 1.8 03/07/21 21:41: pH 7.13 L*, Bicarbonate Actual 17.4 L, Base Excess -12 L, O2 Saturation 100 H, ABG pCO2 53.1 H, ABG pO2 464 H*, Lev Test Positive Rhythm: EKG: ECHO: Stress Test: Cardiac Cath: PCI: CT Surgery: Holter monitor: EPS: PPM: CXR: Chest CT Scan:
[2021-03-07] MEDS: fentaNYL 100 MCG/2 ML Ampul 50 MCG IV (22:37)
--- NOTE | 2021-03-07 22:42 | EKG12_ITS ---
Test Reason : REPEAT X2 Blood Pressure : / mmHG Vent. Rate : 086 BPM Atrial Rate : 086 BPM P-R Int : 168 ms QRS Dur : 172 ms QT Int : 478 ms P-R-T Axes : 111 087 -45 degrees QTc Int : 572 ms Atrial-sensed ventricular-paced rhythm Abnormal ECG Confirmed by MARIUM CORBETT, KENYATTA ([id number]), book editor JONNATHAN MERCEDES ([id number]) on 03/10/2021 11:15:27 AM Referred By: Bertha Murillo Confirmed By:KENYATTA CAUSEY MD
--- NOTE | 2021-03-07 22:42 | EKG12_ITS ---
Test Reason : REPEAT Blood Pressure : / mmHG Vent. Rate : 083 BPM Atrial Rate : 083 BPM P-R Int : 182 ms QRS Dur : 176 ms QT Int : 494 ms P-R-T Axes : 055 089 -07 degrees QTc Int : 580 ms Electronic ventricular pacemaker Confirmed by MARIUM CORBETT, KENYATTA ([id number]), greeting card editor JONNATHAN MERCEDES ([id number]) on 03/10/2021 11:14:51 AM Referred By: Bertha Murillo Confirmed By:KENYATTA CAUSEY MD
--- NOTE | 2021-03-07 22:42 | EKG12_ITS ---
Test Reason : REPEAT X2 Blood Pressure : / mmHG Vent. Rate : 086 BPM Atrial Rate : 086 BPM P-R Int : 172 ms QRS Dur : 174 ms QT Int : 468 ms P-R-T Axes : 056 086 -68 degrees QTc Int : 560 ms Poor data quality, interpretation may be adversely affected Atrial-sensed ventricular-paced rhythm Abnormal ECG Confirmed by MARIUM CORBETT, KENYATTA ([id number]), metropolitan editor JONNATHAN MERCEDES ([id number]) on 03/10/2021 11:15:11 AM Referred By: Bertha Murillo Confirmed By:KENYATTA CAUSEY MD
--- NOTE | 2021-03-07 22:43 | EKG12_ITS ---
Test Reason : ARREST Blood Pressure : / mmHG Vent. Rate : 081 BPM Atrial Rate : 069 BPM P-R Int : 000 ms QRS Dur : 158 ms QT Int : 408 ms P-R-T Axes : 000 088 -85 degrees QTc Int : 473 ms Ventricular-paced rhythm with occasional Premature ventricular complexes Abnormal ECG Confirmed by MARIUM CORBETT, KENYATTA ([id number]), graphics editor JONNATHAN MERCEDES ([id number]) on 03/10/2021 11:13:52 AM Referred By: Bertha Murillo Confirmed By:KENYATTA CAUSEY MD
--- NOTE | 2021-03-07 22:45 | EKG12_ITS ---
Test Reason : REPEAT Blood Pressure : / mmHG Vent. Rate : 081 BPM Atrial Rate : 081 BPM P-R Int : 182 ms QRS Dur : 174 ms QT Int : 498 ms P-R-T Axes : 058 088 036 degrees QTc Int : 578 ms Electronic ventricular pacemaker Abnormal ECG Confirmed by MARIUM CORBETT, KENYATTA ([id number]), editor in chief newspaper JONNATHAN MERCEDES ([id number]) on 03/10/2021 11:14:32 AM Referred By: Bertha Murillo Confirmed By:KENYATTA CAUSEY MD
[2021-03-07 22:46] LABS: BUN/Creat Ratio 6.1 RATIO (10-20); Glucose 145 mg/dL (74-106)
[2021-03-07 22:48] LABS: Anion Gap 24 (5-15)
[2021-03-07 22:51] LABS: Absolute Lymphocyte Count 2.24 X10^3/uL (0.83-4.51); Absolute Neutrophil Count 0.9 X10^3/uL (2.0-7.7); Basophil# 0.03 X10^3/uL; Basophil% 0.9 % (0-1); Eosinophil# 0.05 X10^3/uL; Eosinophils% 1.4 % (0-5); Hematocrit 32.8 % (40-54); Hemoglobin 10.1 g/dL (13.0-16.5); Lymphocyte # 2.24 X10^3/ul (0.83-4.51); Lymphocyte % 63.6 % (19-41); Mean Corp Hgb Conc 30.8 g/dL (32-36); Mean Corpuscular Hgb 28.9 pg (27.0-32.0); Mean Platelet Vol. 11.5 fl (6.2-12.0); Monocyte# 0.24 X10^3/uL; Monocyte% 6.8 % (0-10); NRBC Flagged by Analyzer 1.4 % (0-5); Neutrophil % 25.6 % (47-70); POSITIVE COUNT YES; POSITIVE DIFFERENTIAL YES; Platelet Count 81 K/mm3 (150-450); RBC Distribution Width CV 15.4 % (11.6-14.6); RBC Distribution Width SD 53.1 fl (35.1-43.9); Red Blood Count 3.49 M/mm3 (4.6-6.2); White Blood Count 3.5 K/mm3 (4.4-11.0)
[2021-03-07 22:53] LABS: Differential Indicated SCAN CRITERIA MET
[2021-03-07 22:55] LABS: ALB/GLOB Ratio 0.9 RATIO (0.9-2.4); AST(SGOT) 309 U/L (15-37); Alanine Aminotransfer ALT/SGPT 177 U/L (16-61); Albumin, Serum 2.9 g/dL (3.2-5.0); Alkaline Phosphatase 95 U/L (45-117); BUN 4 mg/dL (7-18); Calcium,Total 8.5 mg/dL (8.5-10.1); Chloride 95 mmol/L (98-107); Creatinine, Serum 0.81 mg/dL (0.70-1.30); EST Glomerular Filtration Rate 102 mL/min (>60); Est Glom Filt Rate - Afr Amer 123 mL/min (>60); Estimated Creatinine Clearance 75.13 ml/min; Globulin 3.4 g/dL (2.2-4.2); Magnesium 4.3 mg/dL (1.6-2.6); Protein, Total 6.3 g/dL (6.4-8.2); Sodium Level 136 mmol/L (136-145)
--- NOTE | 2021-03-07 22:57 | NURSING ---
PANDEMIC DOCUMENTATION DATE: 03/07/21 TIME: 1999
[2021-03-07] MEDS: Propofol 10MG/Ml 1,000 MG/100 ML Bottle 3.6 MG CONT INF (22:58)
--- NOTE | 2021-03-07 23:11 | NURSING ---
unable to reach s/o kasey to update her. l/m requesting she call the hospital.
[2021-03-07 23:16] LABS: Acanthocytes RARE; Anisocytosis 1+; Hypochromasia RARE; Macrocytosis RARE; Ovalocyte RARE; Platelet Estimate MOD DEC (ADEQ); Red Cell Morphology N CHROM NORMAL (NORM C&C); Target Cells RARE
[2021-03-07] MEDS: Chlorhexidine 15 ML PO (23:51)
[2021-03-07] MEDS: Thiamine Hydrochloride 100 MG Tablet PO (23:53)
[2021-03-08] VITALS (36 sets, daily range): BP systolic 75–184; BP diastolic 55–119; PULSE 84–137; RESP 14–34; TEMP 36.6–38.7; O2SAT 90–100
[2021-03-08] MEDS: Potassium Chloride Oral Tablet 20 MEQ 40 MEQ NG (00:40)
[2021-03-08 00:42] LABS: Hematocrit 33.2 % (40-54); Hemoglobin 10.7 g/dL (13.0-16.5)
[2021-03-08] MEDS: Furosemide 40 MG/4 ML Vial IV (00:42)
[2021-03-08] MEDS: Metoprolol Tartrate 5 MG/5 ML Vial IV ×5 (01:00→18:48)
[2021-03-08 01:13] LABS: CPK Total, Creatine Kinase 211 U/L (39-308); Triglycerides 116 mg/dL
[2021-03-08 01:14] LABS: Partial Thromboplast Time 55.2 Seconds (24.1-36.2)
[2021-03-08 01:15] LABS: Magnesium 4.3 mg/dL (1.6-2.6)
[2021-03-08] MEDS: Phenobarbital Sodium 65 MG/ML Vial 100 MG IV ×2 (01:31→05:25)
[2021-03-08] MEDS: Dexmedetomidine 1,000 mcg in 0.9% NS 240 mL 7.6 MCG CONT INF (02:57)
[2021-03-08 06:10] LABS: Absolute Lymphocyte Count 0.42 X10^3/uL (0.83-4.51); Absolute Neutrophil Count 5.5 X10^3/uL (2.0-7.7); Basophil# 0.02 X10^3/uL; Basophil% 0.3 % (0-1); Hematocrit 33.8 % (40-54); Hemoglobin 10.8 g/dL (13.0-16.5); Lymphocyte # 0.42 X10^3/ul (0.83-4.51); Lymphocyte % 6.7 % (19-41); Mean Corpuscular Hgb 28.5 pg (27.0-32.0); Mean Corpuscular Volume 89.2 fL (80-94); Mean Platelet Vol. 11.9 fl (6.2-12.0); Monocyte% 4.8 % (0-10); NRBC Flagged by Analyzer 0.5 % (0-5); Neutrophil # 5.51 X10^3/uL (2.7-7.7); Neutrophil % 87.6 % (47-70); POSITIVE COUNT YES; POSITIVE DIFFERENTIAL YES; Platelet Count 89 K/mm3 (150-450); RBC Distribution Width CV 15.5 % (11.6-14.6); RBC Distribution Width SD 50.4 fl (35.1-43.9); Red Blood Count 3.79 M/mm3 (4.6-6.2); White Blood Count 6.3 K/mm3 (4.4-11.0)
[2021-03-08 07:04] LABS: Anion Gap 14 (5-15); BUN 18 mg/dL (7-18); BUN/Creat Ratio 11.8 RATIO (10-20); Chloride 97 mmol/L (98-107); Creatinine, Serum 1.52 mg/dL (0.70-1.30); EST Glomerular Filtration Rate 50 mL/min (>60); Est Glom Filt Rate - Afr Amer 60 mL/min (>60); Estimated Creatinine Clearance 40.03 ml/min; Glucose 131 mg/dL (74-106); Potassium 4.1 mmol/L (3.5-5.1); Sodium Level 133 mmol/L (136-145)
[2021-03-08 07:19] LABS: Differential Indicated SCAN CRITERIA MET
[2021-03-08 07:33] LABS: Platelet Estimate SLT DEC (ADEQ); Platelet Morphology LARGE
--- NOTE | 2021-03-08 07:38 | PN.HOSP_ITS ---
Subjective Subjective Patient is a 61-year-old admitted with acute alcohol withdrawal with desire for detoxification. Patient was apparently found in the emergency department with face down. He was found unresponsive was found to be in V. fib. CODE BLUE was called patient was successfully resuscitated with ACLS with ROSC SC. Intubated and admitted to the intensive care unit Objective Data Objective Data Vital Signs: Vital Signs Temp Pulse Resp BP Pulse Ox 100.4 F H 97 24 H 81/66 L 97 03/08/21 07:00 03/08/21 07:00 03/08/21 07:00 03/08/21 07:00 03/08/21 07:00 Oxygen Delivery Method Mechanical Ventilator Weight: 60.6 kg Body Mass Index (BMI) 23.6 Intake & Output: Intake and Output for Last 24 Hours 03/06/21 03/07/21 03/08/21 23:59 23:59 23:59 Intake Total 86.12 / 97.70 225.19 / 225.19 Balance 86.12 / 97.70 225.19 / 225.19 Lab / Micro Data Result Diagrams: 03/08/21 05:50 03/08/21 06:36 Labs: Laboratory Results - last 24 hr 03/07/21 06:10: Phenobarbital < 2.1 L 03/07/21 21:10: Sodium 136, Potassium 4.0, Chloride 95 L, Carbon Dioxide 19.0 L, Anion Gap 24 H, BUN 4 L, Creatinine 0.81, Estim Creat Clear Calc 75.13, Est GFR (MDRD) Af Amer 123, Est GFR (MDRD) Non-Af 102, BUN/Creatinine Ratio 6.1 L, Glucose 145 H, Calcium 8.5, Magnesium 4.3 H, Total Bilirubin 0.60, AST 309 H, ALT 177 H, Alkaline Phosphatase 95, Total Protein 6.3 L, Albumin 2.9 L, Globulin 3.4, Albumin/Globulin Ratio 0.9 03/07/21 21:10: WBC 3.5 L, RBC 3.49 L, Hgb 10.1 L, Hct 32.8 L, MCV 94.0 D, MCH 28.9, MCHC 30.8 L D, RDW Std Deviation 53.1 H, RDW Coeff of Harjeet 15.4 H, Plt Count 81 L, MPV 11.5, Immature Gran % (Auto) 1.700 H, Neut % (Auto) 25.6 L, Lymph % (Auto) 63.6 H, Calvert % (Auto) 6.8, Eos % (Auto) 1.4, Baso % (Auto) 0.9, Absolute Neuts (auto) 0.9 L, Absolute Lymphs (auto) 2.24, Nucleated RBC % 1.4, Differential Comment SEE COMMENT, Platelet Estimate MOD DEC, RBC Morphology N CHROM, Hypochromasia RARE, Anisocytosis 1+, Macrocytosis RARE, Target Cells RARE, Ovalocytes RARE, Acanthocytes (Spur) RARE 03/07/21 21:10: Magnesium 4.3 H 03/07/21 21:10: Total Creatine Kinase 211, Triglycerides 116 03/08/21 00:20: Hgb 10.7 L, Hct 33.2 L 03/08/21 00:20: APTT 55.2 H 03/08/21 05:50: APTT Cancelled 03/08/21 05:50: WBC 6.3, RBC 3.79 L, Hgb 10.8 L, Hct 33.8 L, MCV 89.2 D, MCH 28.5, MCHC 32.0, RDW Std Deviation 50.4 H, RDW Coeff of Harjeet 15.5 H, Plt Count 89 L, MPV 11.9, Immature Gran % (Auto) 0.600, Neut % (Auto) 87.6 H, Lymph % (Auto) 6.7 L, Calvert % (Auto) 4.8, Eos % (Auto) 0.0, Baso % (Auto) 0.3, Absolute Neuts (auto) 5.5, Absolute Lymphs (auto) 0.42 L, Nucleated RBC % 0.5, Platelet Estimate SLT DEC, Plt Morphology Comment LARGE 03/08/21 05:50: Sodium Cancelled, Potassium Cancelled, Chloride Cancelled, Carbon Dioxide Cancelled, Anion Gap Cancelled, BUN Cancelled, Creatinine Cancelled, Estim Creat Clear Calc Cancelled, Est GFR (MDRD) Af Amer Cancelled, E st GFR (MDRD) Non-Af Cancelled, BUN/Creatinine Ratio Cancelled, Glucose Cancelled, Calcium Cancelled 03/08/21 06:36: Sodium 133 L, Potassium 4.1, Chloride 97 L, Carbon Dioxide 22.0, Anion Gap 14, BUN 18, Creatinine 1.52 H, Estim Creat Clear Calc 40.03, Est GFR (MDRD) Af Amer 60, Est GFR (MDRD) Non-Af 50 L, BUN/Creatinine Ratio 11.8, Glucose 131 H, Calcium 8.0 L Micro: Microbiology 03/07/21 06:08 Nasal Secretion SARS-CoV-2 Antigen (Rapid) - Final ABG Data ABG results: ABG 03/07/21 21:41 Specimen Type ART Sample Site R Radial pH 7.13 L* Bicarbonate Actual 17.4 L Total CO2 19 Base Excess -12 L O2 Saturation 100 H O2 % 100 ABG pCO2 53.1 H ABG pO2 464 H* Lev Test Positive Respiration Rate 14 O2 Delivery Device ET Tube Vent Mode AC Tidal Volume 350 POC PEEP 5 Crit Call To/Read Back Yes Radiography Diagnostic Testing: Radiology Impression Chest X-Ray 03/07/21 21:19 IMPRESSION: Bilateral pneumonia. Follow to resolution. Electronically Signed: Toño Meade MD at 22:51 EST Tel , Service support , Physical Exam Narrative GENERAL: Sedated on the vent HEENT: Atraumatic; EYES; Anicteric, Normal Conjunctiva NECK; supple, normal thyroid, RESPIRATORY: Diminished to auscultation CARDIOVASCULAR: Regular S1 S2, GI: soft, normoactive bowel sounds, : No Renal angle tenderness; EXTREMITIES: No edema, no clubbing, MUSCULOSKELETAL: no muscle waisting NEURO: Sedated on the vent Assessment & Plan Assessment/Plan (1) Tobacco abuse: (2) Alcohol abuse: (3) History of prosthetic mitral valve: (4) Noncompliance with medications: PLAN: Patient is a 61-year-old admitted with acute alcohol withdrawal with desire for detoxification. Patient was apparently found in the emergency department with face down. He was found unresponsive was found to be in V. fib. CODE BLUE was called patient was successfully resuscitated with ACLS with ROSC SC. Intubated and admitted to the intensive care unit 1. Cardiopulmonary arrest ?Secondary to ventricular fibrillation. Patient was successfully resuscitated using ACLS protocol. Cardiology consulted 2. Acute hypoxic respiratory failure ?Secondary to above patient was intubated following ROSC admitted to the intensive care unit placed on the vent consult placed to pulmonary/intensive care for vent management 3. Valvular heart disease ?With history of mitral valve prosthesis. Patient is on systemic anticoagulation with Coumadin INR was subtherapeutic started on heparin 4. 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 Paroxysmal A. fib ?Rate controlled 6. Chronic alcohol dependence ?Plan was for patient to have undergone detoxification however he coded prior to initiation of the program 7. Chronic diastolic heart failure ?Echo obtained on 08/11/2020 demonstrated EF of 60% 8. Essential hypertension ?BP stable 9. Tobacco dependence 10. DVT prophylaxis ?On systemic anticoagulation with heparin Charges/Coding Visit Charges Inpatient E&M: 04886 Subs Hosp L3
[2021-03-08] MEDS: Chlorhexidine 15 ML PO ×2 (08:14→21:24)
[2021-03-08 08:21] LABS: Partial Thromboplast Time 76.1 Seconds (24.1-36.2)
--- NOTE | 2021-03-08 09:27 | PCM.PN.CARD ---
Subjective Subjective The patient is currently in the ICU mechanically intubated/ventilated/sedated. Objective Data Vital Signs: Vital Signs Temp Pulse Resp BP Pulse Ox 100.4 F H 97 24 H 81/66 L 97 03/08/21 07:00 03/08/21 07:00 03/08/21 07:00 03/08/21 07:00 03/08/21 07:00 Oxygen Delivery Method Mechanical Ventilator Weight: 127 lb 3.307 oz Body Mass Index (BMI) 23.6 Intake & Output: Intake and Output for Last 24 Hours 03/06/21 03/07/21 03/08/21 23:59 23:59 23:59 Intake Total 86.12 / 97.70 261.89 / 261.89 Balance 86.12 / 97.70 261.89 / 261.89 Lab / Micro Data Result Diagrams: 03/08/21 05:50 03/08/21 06:36 Labs: Laboratory Results - last 24 hr 03/07/21 06:10: Phenobarbital < 2.1 L 03/07/21 21:10: Sodium 136, Potassium 4.0, Chloride 95 L, Carbon Dioxide 19.0 L, Anion Gap 24 H, BUN 4 L, Creatinine 0.81, Estim Creat Clear Calc 75.13, Est GFR (MDRD) Af Amer 123, Est GFR (MDRD) Non-Af 102, BUN/Creatinine Ratio 6.1 L, Glucose 145 H, Calcium 8.5, Magnesium 4.3 H, Total Bilirubin 0.60, AST 309 H, ALT 177 H, Alkaline Phosphatase 95, Total Protein 6.3 L, Albumin 2.9 L, Globulin 3.4, Albumin/Globulin Ratio 0.9 03/07/21 21:10: WBC 3.5 L, RBC 3.49 L, Hgb 10.1 L, Hct 32.8 L, MCV 94.0 D, MCH 28.9, MCHC 30.8 L D, RDW Std Deviation 53.1 H, RDW Coeff of Harjeet 15.4 H, Plt Count 81 L, MPV 11.5, Immature Gran % (Auto) 1.700 H, Neut % (Auto) 25.6 L, Lymph % (Auto) 63.6 H, Whiteside % (Auto) 6.8, Eos % (Auto) 1.4, Baso % (Auto) 0.9, Absolute Neuts (auto) 0.9 L, Absolute Lymphs (auto) 2.24, Nucleated RBC % 1.4, Differential Comment SEE COMMENT, Platelet Estimate MOD DEC, RBC Morphology N CHROM, Hypochromasia RARE, Anisocytosis 1+, Macrocytosis RARE, Target Cells RARE, Ovalocytes RARE, Acanthocytes (Spur) RARE 03/07/21 21:10: Magnesium 4.3 H 03/07/21 21:10: Total Creatine Kinase 211, Triglycerides 116 03/08/21 00:20: Hgb 10.7 L, Hct 33.2 L 03/08/21 00:20: APTT 55.2 H 03/08/21 05:50: APTT Cancelled 03/08/21 05:50: WBC 6.3, RBC 3.79 L, Hgb 10.8 L, Hct 33.8 L, MCV 89.2 D, MCH 28.5, MCHC 32.0, RDW Std Deviation 50.4 H, RDW Coeff of Harjeet 15.5 H, Plt Count 89 L, MPV 11.9, Immature Gran % (Auto) 0.600, Neut % (Auto) 87.6 H, Lymph % (Auto) 6.7 L, Whiteside % (Auto) 4.8, Eos % (Auto) 0.0, Baso % (Auto) 0.3, Absolute Neuts (auto) 5.5, Absolute Lymphs (auto) 0.42 L, Nucleated RBC % 0.5, Platelet Estimate SLT DEC, Plt Morphology Comment LARGE 03/08/21 05:50: Sodium Cancelled, Potassium Cancelled, Chloride Cancelled, Carbon Dioxide Cancelled, Anion Gap Cancelled, BUN Cancelled, Creatinine Cancelled, Estim Creat Clear Calc Cancelled, Est GFR (MDRD) Af Amer Cancelled, Est GFR (MDRD) Non-Af Cancelled, BUN/Creatinine Ratio Cancelled, Glucose Cancelled, Calcium Cancelled 03/08/21 06:36: Sodium 133 L, Potassium 4.1, Chloride 97 L, Carbon Dioxide 22.0, Anion Gap 14, BUN 18, Creatinine 1.52 H, Estim Creat Clear Calc 40.03, Est GFR (MDRD) Af Amer 60, Est GFR (MDRD) Non-Af 50 L, BUN/Creatinine Ratio 11.8, Glucose 131 H, Calcium 8.0 L 03/08/21 07:50: APTT 76.1 H Micro: Microbiology 03/07/21 06:08 Nasal Secretion SARS-CoV-2 Antigen (Rapid) - Final ABG Data ABG results: ABG 03/07/21 21:41 Specimen Type ART Sample Site R Radial pH 7.13 L* Bicarbonate Actual 17.4 L Total CO2 19 Base Excess -12 L O2 Saturation 100 H O2 % 100 ABG pCO2 53.1 H ABG pO2 464 H* Lev Test Positive Respiration Rate 14 O2 Delivery Device ET Tube Vent Mode AC Tidal Volume 350 POC PEEP 5 Crit Call To/Read Back Yes Cardiology Labs/Tests 03/07/21 21:10: Sodium 136, Potassium 4.0, Chloride 95 L, Carbon Dioxide 19.0 L, Anion Gap 24 H, BUN 4 L, Creatinine 0.81, Est GFR (MDRD) Af Amer 123, Est GFR (MDRD) Non-Af 102, BUN/Creatinine Ratio 6.1 L, Glucose 145 H, Calcium 8.5, Magnesium 4.3 H, Total Bilirubin 0.60 03/07/21 21:10: WBC 3.5 L, RBC 3.49 L, Hgb 10.1 L, Hct 32.8 L, MCV 94.0 D, MCH 28.9, MCHC 30.8 L D, Plt Count 81 L, MPV 11.5, Immature Gran % (Auto) 1.700 H, Neut % (Auto) 25.6 L, Lymph % (Auto) 63.6 H, Whiteside % (Auto) 6.8, Eos % (Auto) 1.4, Baso % (Auto) 0.9, Absolute Neuts (auto) 0.9 L, Nucleated RBC % 1.4 03/07/21 21:10: Magnesium 4.3 H 03/07/21 21:10: Triglycerides 116 03/07/21 21:41: pH 7.13 L*, Bicarbonate Actual 17.4 L, Base Excess -12 L, O2 Saturation 100 H, ABG pCO2 53.1 H, ABG pO2 464 H*, Lev Test Positive 03/08/21 00:20: Hgb 10.7 L, Hct 33.2 L 03/08/21 00:20: APTT 55.2 H 03/08/21 05:50: APTT Cancelled 03/08/21 05:50: WBC 6.3, RBC 3.79 L, Hgb 10.8 L, Hct 33.8 L, MCV 89.2 D, MCH 28.5, MCHC 32.0, Plt Count 89 L, MPV 11.9, Immature Gran % (Auto) 0.600, Neut % (Auto) 87.6 H, Lymph % (Auto) 6.7 L, Whiteside % (Auto) 4.8, Eos % (Auto) 0.0, Baso % (Auto) 0.3, Absolute Neuts (auto) 5.5, Nucleated RBC % 0.5 03/08/21 05:50: Sodium Cancelled, Potassium Cancelled, Chloride Cancelled, Carbon Dioxide Cancelled, Anion Gap Cancelled, BUN Cancelled, Creatinine Cancelled, Est GFR (MDRD) Af Amer Cancelled, Est GFR (MDRD) Non-Af Cancelled, BUN/Creatinine Ratio Cancelled, Glucose Cancelled, Calcium Cancelled 03/08/21 06:36: Sodium 133 L, Potassium 4.1, Chloride 97 L, Carbon Dioxide 22.0, Anion Gap 14, BUN 18, Creatinine 1.52 H, Est GFR (MDRD) Af Amer 60, Est GFR (MDRD) Non-Af 50 L, BUN/Creatinine Ratio 11.8, Glucose 131 H, Calcium 8.0 L 03/08/21 07:50: APTT 76.1 H Rhythm: Radiography Diagnostic Testing: Radiology Impression Chest X-Ray 03/07/21 21:19 IMPRESSION: Bilateral pneumonia. Follow to resolution. Electronically Signed: Toño Meade MD at 22:51 EST Tel , Service support , Physical Exam HEENT normocephalic and head/scalp atraumatic Neck no JVD Resp clear to auscultation bilaterally Cardio regular rate, regular rhythm, S1 normal heart sound and S2 normal heart sound GI normal to inspection, nondistended, normoactive bowel sounds Extremity no pedal edema Assessment & Plan Assessment/Plan (1) History of prosthetic mitral valve: PLAN: The history of mechanical mitral valve prosthesis. He does need to continue AHA antibiotic prophylaxis as well as anticoagulant therapy. His mitral valve can be reassessed with a transthoracic echocardiogram. (2) Presence of permanent cardiac pacemaker: PLAN: The patient also has an underlying permanent pacemaker. This has been followed as an outpatient. It has been reported as functioning appropriately in the past. It can be reassessed as needed. (3) Hyperlipidemia: QUALIFIERS: Hyperlipidemia type: unspecified Qualified Code(s): E78.5 - Hyperlipidemia, unspecified PLAN: The patient should continue risk factor evaluation care as deemed appropriate. (4) Essential hypertension: PLAN: The patient's blood pressure will need to be followed with his medicines adjusted accordingly. (5) alf current use of anticoagulant: PLAN: The patient has been on long-term anticoagulant therapy secondary to his underlying mechanical mitral valve prosthesis. (6) Cardiac arrest: PLAN: The patient is reported to presenting to the hospital for nonvascular conditions and then being found in the emergency department on the floor in cardiopulmonary arrest with ventricular fibrillation requiring ACLS protocol/defibrillation x2 and subsequent mechanical intubation/ventilation and placement in the ICU. At the present time it is unclear as to the patient's underlying neurologic status as the patient is requiring sedation based upon concerns of alcohol withdrawal, etc. The patient's neurologic status will help guide further cardiovascular noncardiovascular evaluation and care of the patient. Addt'l Comments The patient's case was discussed and reviewed with the patient and Dr. Roberts. This note was generated using a voice recognition system and there may be incorrect words, spelling or punctuation that were not noted when reviewing the office note prior to saving.
--- NOTE | 2021-03-08 09:30 | ECHOCS_ITS ---
Reason For Study: Valve Replacement Eval Procedure This was a 2D Doppler, Color Flow transthoracic echocardiogram. The study was technically difficult. Contrast injection was performed. Patient scanned supine and on a vent. Exam performed portable in ICU/CCU. Left Ventricle Based upon the 2D echocardiographic and contrast enhanced images obtained there appears to be normal left ventricular size with moderate global left ventricular systolic dysfunction. The estimated ejection fraction is 35 %. Unable to assess diastolic dysfunction. Right Ventricle Normal RV size. ICD or pacer leads identified within the right ventricle. Normal systolic function. Atria The left atrium is mildly enlarged. Normal right atrium. ICD or pacer leads identified within the right atrium. No doppler evidence for ASD. Mitral Valve Stable appearing mechanical mitral valve apparatus. Trivial transvalvular insufficiency of the mitral valve. Tricuspid Valve Normal tricuspid valve. Trivial tricuspid valve insufficiency. Unable to estimate RV systolic pressure/pulmonary artery pressure due to technically difficult study. Aortic Valve Trisinus/trileaflet aortic valve. Mild focal aortic valve calcification. Mild-Moderate (1-2+) aortic valve insufficiency. Pulmonic Valve The pulmonic valve is not well visualized. Great Vessels Calcified aortic root. Pericardium/Pleural No pericardial effusion. Medication Diluted definity 2ml given slow IV push to enhance endocardial definition. MMode/2D Measurements & Calculations LVIDd: 5.1 cm IVSd: 1.3 cm Ao root diam: 3.4 cm LVIDs: 4.7 cm LVPWd: 0.68 cm RVDd: 3.7 cm FS: 8.3 % Doppler Measurements & Calculations Lat Peak E' Jozef: 9.4 cm/sec Med Peak E' Jozef: 7.6 cm/sec Ao V2 max: 173.6 cm/sec Ao max P.1 mmHg LV V1 max: 138.9 cm/sec PA V2 max: 102.7 cm/sec LV V1 max P.7 mmHg ECHO/Echo Complete W/ Contrast Interpretation Summary The study was technically difficult. Contrast injection was performed. Based upon the 2D echocardiographic and contrast enhanced images obtained there appears to be normal left ventricular size with moderate global left ventricular systolic dysfunctio n. The estimated ejection fraction is 35 %. The left atrium is mildly enlarged. Stable appearing mechanical mitral valve apparatus. Trivial transvalvular insufficiency of the mitral valve. Trivial tricuspid valve insufficiency. Mild focal aortic valve calcification. Mild-Moderate (1-2+) aortic valve insufficiency. Calcified aortic root. Unable to estimate RV systolic pressure/pulmonary artery pressure due to techni abilio difficult study. Unable to assess diastolic dysfunction. ICD or pacer leads identified within the right atrium ICD or pacer leads identified within the right ventricle. Ordering Physician: Samir Medina Referring Physician: Jono Cifuentes Performed By: Pepito Boo RCS
--- NOTE | 2021-03-08 10:08 | CASEMGMT ---
Addendum entered by Katlyn Griffin 03/08/21 15:17: Social Work Daughter Arianna called into the ICU, had questions regarding POA, had indicated to RN that Suellen should be the POA. SW spoke w/Arianna. SW explained that pt has not completed healthcare POA forms to indicate who he would want to make decisions for him in the event he cannot make them for himself. SW explained that without the paperwork, decisions fall to the children, and this would be Arianna and Viviana together. Arianna confirms there are no other biological children. SW explained that Suellen is a stepdaughter so she cannot be an official decision maker. SW explained that Arianna and Viviana can certainly talk over things with Suellen, but as far as medical decisions, it's going to fall to the biological children. Arianna states understanding. SW also said that Arianna and Viviana should decide who would be the designated person to call in to check on the pt. Arinana states they are also trying to figure out who will be the person to visit pt. Arianna or Viviana to let ICU staff know what they would like to do as far as who will call in and who will visit. SW reiterated to Arianna that decisions will still be the two of them together, not just one or the other. Arianna states understanding. SW explained that once pt is off of the vent we will speak w/her about who he would like to designate as his POA. Daughter Arianna states understanding. SW will continue to follow for support to family. PATRIC Connors Original Note: Social Work SW participated in ICU rounds. Pt is intubated, SW called significant other Catherine Salmon to attain some initial information regarding pt. She was able to answer some questions, though slow to answer and with slurred speech. SW will speak w/pt once he is extubated to clarify and continue with discharge planning. PCP: Listed as Dr. Cifuentes, significant other does not know Insurance: [employer] O Specialists: Pt has been involved with both [facility] and [facility] in the past, unsure if pt is involved with these agencies at present. Pt sees Dr. Medina Pharmacy: [place] as per chart- [facility]: Pt has significant other Catherine Salmon listed. Catherine able to give SW numbers for two daughters, Viviana Sharif --[phone], and Arianna Sharif--[phone]. As per Catherine, their voicemails are always full. Living arrangements/prior level of function: Pt lives home alone. As per Catherine, pt spends a lot of time in bed. He uses a cane and a walker. She states pt has been drinking, and also smokes cigarettes. Pt also has aides through [facility], [facility]. SW called [facility], Hollie Sylvester([id number]) is pt's covering behavioral health case manager as Leslie is on leave. Pt gets 4 hours per week of aide services through [facility], and pt gets 7 meals per week through [facility]. Pt has no history of going to SNF. ROSY called daughter Arianna, the voicemail is full and cannot take any messages. SW called Viviana, she answered. She was aware pt was in the hospital. SW updated her on pt's condition. 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 Arianna and Viviana are biological children, Suellen is a step daughter. ROSY updated nurse on names of biological children. Plan: TBD. SW will continue to follow, will follow up w/pt once extubated. PATRIC Connors
--- NOTE | 2021-03-08 12:08 | CON.PCM.CC_ITS ---
Assessment & Plan Assessment/Plan (1) Acute respiratory failure: PLAN: RECOMMENDATIONS: 1. Continue assist control mode of mechanical ventilation. Wean FiO2/PEEP for saturations greater than 90%. 2. Continue current sedation regimen. Discontinue phenobarbital. 3. Continue thiamine and folate. 4. Obtain repeat plain film chest x-ray along with repeat arterial blood gas. 5. Await results of echocardiogram. 6. Hold on tube feeds today. 7. Continue PPI therapy twice daily. 8. Repeat liver function profile. IMPRESSIONS: 1. Acute hypoxemic and hypercarbic respiratory failure status post V. fib cardiac arrest The patient was initially admitted for acute alcohol detoxification and was found unresponsive in V. fib arrest. The patient did receive ACLS with eventual return of spontaneous circulation. He was intubated as a consequence of the aforementioned. The patient will remain on assist control mode of mechanical ventilation. FiO2 and PEEP will be weaned as tolerated. Cultures are currently pending. Continue current sedation regimen. We will continue to hold on tube feeds for now. Await results of echocardiogram and additional cardiology recommendations. 2. Acute kidney injury Likely prerenal in etiology/ischemic ATN in the setting of cardiac arrest. Anticipate improvement with stabilization of hemodynamics. Continue to monitor urine output for now. Avoid nephrotoxic medications. No current indication for renal replacement therapy. 3. Acute liver injury Mild transaminitis was noted. Again, likely secondary to cardiac arrest and hemodynamic instability leading to hypoperfusion. Anticipate improvement with stabilization of hemodynamics. Plan to repeat liver function profile today. 4. Acute alcohol withdrawal Continue current sedation regimen including propofol, fentanyl and Precedex. Discontinue phenobarbital. Continue thiamine and folate as ordered. 5. Anemia There is some concern for coffee-ground output from the patient's OG tube. Hemoglobin is currently stable. We will continue to monitor. Continue PPI twice daily as ordered. The patient remains on systemic anticoagulation. 6. History of prosthetic mitral valve/hypertension/hyperlipidemia Complicates care, management, recovery and prognosis. Continue home medications as indicated. TIME: 40 minutes of critical care time, independent of procedures, was spent addressing the patient's acute combined respiratory failure, V. fib cardiac arrest, acute kidney injury, acute liver injury, acute alcohol withdrawal, anemia, review of all data and collaboration with the care team. HPI Consult Data Date of Consult: 03/08/21 HPI Narrative Reason for Consultation: Acute combined respiratory failure status post V. fib cardiac arrest HPI Narrative: The patient is a 61-year-old male, with a history as outlined below, who initially presented to the emergency department on March 07 for a cute alcohol detoxification. The patient has a history of drinking a 12 pack/day. His last drink was approximately 1 hour prior to ED presentation. In addition to the aforementioned, the patient does smoke marijuana daily. The patient's medical history is also significant for mitral valve replacement, for which she is systemically anticoagulated on an outpatient basis. The patient was initially being medically managed for his alcohol withdrawal symptoms. On the evening of March 07, the patient was found on the floor unresponsive and cyanotic in appearance. A CODE BLUE was called and the patient was noted to be in V. fib. ACLS was initiated and the patient was defibrillated. Return of spontaneous circulation was eventually achieved. The patient was intubated as a consequence of the aforementioned. He was subsequently transferred to the medical intensive care unit. The patient was seen in consultation by cardiology, who recommended continued medical management. At the present time, the patient is currently sedated on propofol, fentanyl and Precedex. He was initially also being treated with phenobarbital as well. He remains on a continuous heparin infusion. Hemoglobin has been stable. Platelet count is low at 89,000. Creatinine has increased this morning to 1.52. AST and ALT are increased to 309 and 177, respectively. [facility] Medical History (Updated 03/08/21 @ 12:[address] Sean Roberts, ) Alcohol dependence Alcohol use Alcoholic cirrhosis Alcoholism /alcohol abuse Ambulates with cane Anxiety Arthritis Blackout BPH (benign prostatic hyperplasia) Bruising Cardiac arrest Cardiology follow-up encounter Chronic cough COPD (chronic obstructive pulmonary disease) Dementia Depression Easy bruising Essential hypertension Excessive bleeding Gastric reflux High cholesterol History of GI bleed History of pacemaker History of wrist fracture HTN (hypertension) Hyperlipidemia Injury of back Injury of head and neck Marijuana use Neuropathy Nonrheumatic aortic (valve) insufficiency Paroxysmal atrial fibrillation Presence of permanent cardiac pacemaker Prostate disease Shortness of breath on exertion Smoker Wears dentures Wears glasses Wears hearing aid Home Medications carvedilol 3.125 mg PO BID 08/18/17 [History Last Taken 05/12/20] ferrous sulfate 325 mg PO DAILY 08/18/17 [History Last Taken 05/12/20] finasteride 5 mg PO DAILY 08/18/17 [History Last Taken 05/12/20] oxybutynin chloride 5 mg tablet 5 mg PO TID tab 11/29/18 [History Last Taken 05/12/20] acamprosate 333 mg tablet,delayed release 2 tab PO TID tab 12/06/19 [History Last Taken 05/12/20] ascorbic acid (vitamin C) 1,000 mg PO BID 01/12/20 [History Last Taken 05/12/20] docusate sodium 100 mg PO BID 05/13/20 [History Last Taken 05/12/20] lisinopril 10 mg PO DAILY 05/13/20 [History Last Taken 05/12/20] omeprazole 40 mg PO DAILY 05/13/20 [History Last Taken 05/12/20] trazodone 300 mg PO QHS 05/13/20 [History Last Taken 05/12/20] pregabalin 100 mg PO BID 09/04/20 [History Last Taken Unknown] hydroxyzine HCl 25 mg PO TID PRN 11/10/20 [History Last Taken Unknown] acetaminophen [Tylenol] 650 mg PO Q6H PRN PRN #0 tab 11/12/20 [Rx Last Taken Unknown] multivitamin 1 tab PO DAILY #1 tab 11/12/20 [Rx Last Taken Unknown] furosemide 60 mg PO DAILY 02/01/21 [History Last Taken Unknown] paroxetine HCl 50 mg PO DAILY 02/01/21 [History Last Taken Unknown] ropinirole 0.5 mg PO QHS 02/01/21 [History Last Taken Unknown] tiotropium bromide [Spiriva with HandiHaler] 1 cap INHALATION BID 02/01/21 [History Last Taken Unknown] atorvastatin 20 mg PO DAILY 03/07/21 [History Last Taken Unknown] donepezil 10 mg PO DAILY 03/07/21 [History Last Taken Unknown] enoxaparin 60 mg SUBCUT DAILY 03/07/21 [History Last Taken Unknown] folic acid 1 mg PO DAILY 03/07/21 [History Last Taken Unknown] Allergy/AdvReac Type Severity Reaction Status Date / Time ibuprofen AdvReac Upset Verified 03/07/21 05:55 Stomach metronidazole AdvReac Upset Verified 03/07/21 05:55 Stomach naproxen [From Aleve] AdvReac gi upset Verified 03/07/21 05:55 Family History Mother Heart disease Father Heart disease CVA (cerebral vascular accident) Brother Heart disease Diabetes Sister Heart disease Surgical History H/O mitral valve replacement with mechanical valve (~2009) History of ankle surgery History of arthroscopy of left shoulder History of cholecystectomy History of hernia repair History of hip surgery History of sinus surgery Status post mitral valve replacement (~2009) Social History Smoking Status: Current every day smoker tobacco type: cigarettes alcohol intake: former year quit: 2016 substance use type: does not use ROS Review of Systems ROS Unobtainable: due to endotracheal tube and due to mental condition Physical Exam Const General Appearance: intubated and patient mechanically ventilated HEENT normocephalic and head/scalp atraumatic Mouth: endotracheal tube in place and OG tube in place Eyes PERRL Neck supple General: trachea midline Chest inspection of chest normal Resp normal respiratory effort Auscultation: Negative for rales, rhonchi or wheezes Cardio regular rate and regular rhythm GI normal to inspection, nondistended, normoactive bowel sounds Extremity no clubbing, cyanosis or edema Skin no rashes or lesions noted Neuro Sensorium / Orientation: sedated on vent Lab / Micro Data Result Diagrams: 03/08/21 05:50 03/08/21 06:36 Labs: Laboratory Results - last 24 hr 03/07/21 06:10: Phenobarbital < 2.1 L 03/07/21 21:10: Sodium 136, Potassium 4.0, Chloride 95 L, Carbon Dioxide 19.0 L, Anion Gap 24 H, BUN 4 L, Creatinine 0.81, Estim Creat Clear Calc 75.13, Est GFR (MDRD) Af Amer 123, Est GFR (MDRD) Non-Af 102, BUN/Creatinine Ratio 6.1 L, Glucose 145 H, Calcium 8.5, Magnesium 4.3 H, Total Bilirubin 0.60, AST 309 H, ALT 177 H, Alkaline Phosphatase 95, Total Protein 6.3 L, Albumin 2.9 L, Globulin 3.4, Albumin/Globulin Ratio 0.9 03/07/21 21:10: WBC 3.5 L, RBC 3.49 L, Hgb 10.1 L, Hct 32.8 L, MCV 94.0 D, MCH 28.9, MCHC 30.8 L D, RDW Std Deviation 53.1 H, RDW Coeff of Harjeet 15.4 H, Plt Count 81 L, MPV 11.5, Immature Gran % (Auto) 1.700 H, Neut % (Auto) 25.6 L, Lymph % (Auto) 63.6 H, [place] % (Auto) 6.8, Eos % (Auto) 1.4, Baso % (Auto) 0.9, Absolute Neuts (auto) 0.9 L, Absolute Lymphs (auto) 2.24, Nucleated RBC % 1.4, Differential Comment SEE COMMENT, Platelet Estimate MOD DEC, RBC Morphology N CH ROM, Hypochromasia RARE, Anisocytosis 1+, Macrocytosis RARE, Target Cells RARE, Ovalocytes RARE, Acanthocytes (Spur) RARE 03/07/21 21:10: Magnesium 4.3 H 03/07/21 21:10: Total Creatine Kinase 211, Triglycerides 116 03/08/21 00:20: Hgb 10.7 L, Hct 33.2 L 03/08/21 00:20: APTT 55.2 H 03/08/21 05:50: APTT Cancelled 03/08/21 05:50: WBC 6.3, RBC 3.79 L, Hgb 10.8 L, Hct 33.8 L, MCV 89.2 D, MCH 28.5, MCHC 32.0, RDW Std Deviation 50.4 H, RDW Coeff of Harjeet 15.5 H, Plt Count 89 L, MPV 11.9, Immature Gran % (Auto) 0.600, Neut % (Auto) 87.6 H, Lymph % (Auto) 6.7 L, [place] % (Auto) 4.8, Eos % (Auto) 0.0, Baso % (Auto) 0.3, Absolute Neuts (auto) 5.5, Absolute Lymphs (auto) 0.42 L, Nucleated RBC % 0.5, Platelet Estimate SLT DEC, Plt Morphology Comment LARGE 03/08/21 05:50: Sodium Cancelled, Potassium Cancelled, Chloride Cancelled, Carbon Dioxide Cancelled, Anion Gap Cancelled, BUN Cancelled, Creatinine Cancelled, Estim Creat Clear Calc Cancelled, Est GFR (MDRD) Af Amer Cancelled, Est GFR (MDRD) Non-Af Cancelled, BUN/Creatinine Ratio Cancelled, Glucose Cancelled, Calcium Cancelled 03/08/21 06:36: Sodium 133 L, Potassium 4.1, Chloride 97 L, Carbon Dioxide 22.0, Anion Gap 14, BUN 18, Creatinine 1.52 H, Estim Creat Clear Calc 40.03, Est GFR (MDRD) Af Amer 60, Est GFR (MDRD) Non-Af 50 L, BUN/Creatinine Ratio 11.8, Glucose 131 H, Calcium 8.0 L 03/08/21 07:50: APTT 76.1 H Micro: Microbiology 03/07/21 23:00 Sputum, Induced/Lukens Gram Stain - Final ABG Data ABG results: ABG 03/07/21 21:41 Specimen Type ART Sample Site R Radial pH 7.13 L* Bicarbonate Actual 17.4 L Total CO2 19 Base Excess -12 L O2 Saturation 100 H O2 % 100 ABG pCO2 53.1 H ABG pO2 464 H* Lev Test Positive Respiration Rate 14 O2 Delivery Device ET Tube Vent Mode AC Tidal Volume 350 POC PEEP 5 Crit Call To/Read Back Yes Radiology Impression Chest X-Ray 03/07/21 21:19 IMPRESSION: Bilateral pneumonia. Follow to resolution. Electronically Signed: Toño Meade MD at 22:51 EST Tel , Service support , Charges/Coding Procedures Hospitalists Procedures: [id number] Critial Care 1st Hr
--- NOTE | 2021-03-08 13:09 | RAD_ITS ---
STUDY: X-RAY CHEST REASON FOR EXAM: Male, 61 years old. Respiratory Failure TECHNIQUE: Single AP portable view of the chest. COMPARISON: Yesterday FINDINGS: Stable appearance of the support lines and tubes, no complications, tip of the ET tube is 2 cm above the rose Lungs are expanded with persistent interstitial and airspace opacifications in both lung pastrana. No demonstrated effusions. Sternal cerclage wires and vascular clips are present from a prior sternotomy and coronary artery bypass graft procedure (CABG). There are calcified mediastinal lymph nodes. Normal visualized pulmonary arteries. Normal visualized aortic arch and descending thoracic aorta. Normal visualized thoracic spine. Normal visualized ribs, clavicles, and shoulders. There is no demonstrated abnormality of the visualized soft tissue structures of the upper abdomen. RAD/Chest 1 View (Portable) IMPRESSION: No interval change Electronically Signed: Heath Hull MD at 17:01 EST , Service support ,
[2021-03-08 13:21] LABS: Allen Test Positive; Base Excess -4 mmol/L (-2 to +2); Bicarbonate 21.8 mmol/L (22-26); Blood Gas Specimen Type ART; FI02 40; Mode AC; O2 Delivery Device Adult Vent; PEEP 5; PO2 61 mmHG (75-100); RR 14; SITE R Radial; SO2 90 % (95-99); Total Carbon Dioxide 23 mmol/L; Vt 400; pCO2 38.5 mmHg (35-45); pH 7.36 (7.35-7.45)
[2021-03-08 13:41] LABS: Hematocrit 28.8 % (40-54); Hemoglobin 9.6 g/dL (13.0-16.5); POSITIVE COUNT YES
[2021-03-08] MEDS: Propofol 10MG/Ml 1,000 MG/100 ML Bottle 3.6 MG CONT INF (14:14)
[2021-03-08 14:17] LABS: AST(SGOT) 5911 U/L (15-37); Alanine Aminotransfer ALT/SGPT 1693 U/L (16-61); Albumin, Serum 2.7 g/dL (3.2-5.0); Alkaline Phosphatase 93 U/L (45-117); Bilirubin, Direct 0.35 mg/dL (0.00-0.30); Globulin 3.4 g/dL (2.2-4.2); Protein, Total 6.1 g/dL (6.4-8.2)
[2021-03-08] MEDS: Acetaminophen 650 MG/20 ML UDC GT ×2 (14:22→21:19)
[2021-03-08 18:15] LABS: Hematocrit 28.4 % (40-54); Hemoglobin 9.1 g/dL (13.0-16.5)
[2021-03-09] VITALS (36 sets, daily range): BP systolic 79–143; BP diastolic 57–92; PULSE 85–128; RESP 13–28; TEMP 38.2–38.8; O2SAT 90–100
[2021-03-09] MEDS: Propofol 10MG/Ml 1,000 MG/100 ML Bottle 3.6 MG CONT INF (03:00)
[2021-03-09] MEDS: 0.9% Saline Lock 10 ML Syringe IV (03:32)
[2021-03-09 03:35] LABS: Absolute Neutrophil Count 7.9 X10^3/uL (2.0-7.7); Basophil# 0.03 X10^3/uL; Basophil% 0.3 % (0-1); Eosinophil# 0.04 X10^3/uL; Eosinophils% 0.4 % (0-5); Hematocrit 26.8 % (40-54); Hemoglobin 8.7 g/dL (13.0-16.5); Lymphocyte % 7.8 % (19-41); Mean Corp Hgb Conc 32.5 g/dL (32-36); Mean Corpuscular Hgb 28.7 pg (27.0-32.0); Mean Corpuscular Volume 88.4 fL (80-94); Monocyte# 0.25 X10^3/uL; Monocyte% 2.8 % (0-10); NRBC Flagged by Analyzer 0.2 % (0-5); Neutrophil # 7.88 X10^3/uL (2.7-7.7); Neutrophil % 88.4 % (47-70); POSITIVE COUNT YES; POSITIVE MORPHOLOGY YES; Platelet Count 70 K/mm3 (150-450); RBC Distribution Width CV 15.9 % (11.6-14.6); RBC Distribution Width SD 51.4 fl (35.1-43.9); Red Blood Count 3.03 M/mm3 (4.6-6.2); White Blood Count 8.9 K/mm3 (4.4-11.0)
[2021-03-09 03:36] LABS: Differential Indicated SCAN CRITERIA MET
[2021-03-09 03:45] LABS: Partial Thromboplast Time 63.7 Seconds (24.1-36.2)
[2021-03-09 04:27] LABS: AST(SGOT) 4607 U/L (15-37); Alanine Aminotransfer ALT/SGPT 1959 U/L (16-61); Albumin, Serum 2.6 g/dL (3.2-5.0); Alkaline Phosphatase 88 U/L (45-117); Anion Gap 9 (5-15); BUN 37 mg/dL (7-18); BUN/Creat Ratio 12.1 RATIO (10-20); Bilirubin, Direct 0.36 mg/dL (0.00-0.30); Calcium,Total 7.3 mg/dL (8.5-10.1); Chloride 103 mmol/L (98-107); Creatinine, Serum 3.07 mg/dL (0.70-1.30); EST Glomerular Filtration Rate 22 mL/min (>60); Est Glom Filt Rate - Afr Amer 27 mL/min (>60); Estimated Creatinine Clearance 19.82 ml/min; Globulin 3.3 g/dL (2.2-4.2); Glucose 106 mg/dL (74-106); Potassium 4.2 mmol/L (3.5-5.1); Protein, Total 5.9 g/dL (6.4-8.2); Sodium Level 136 mmol/L (136-145)
[2021-03-09 04:32] LABS: Anisocytosis 2+
[2021-03-09 04:33] LABS: Platelet Morphology LARGE
[2021-03-09] MEDS: Dexmedetomidine 1,000 mcg in 0.9% NS 240 mL 11.7 MCG CONT INF (06:00)
[2021-03-09] MEDS: TITRATION PARAMETER CHANGE 1 EACH IV (06:54)
--- NOTE | 2021-03-09 07:07 | PN.CC_ITS ---
Assessment & Plan Assessment/Plan (1) Acute respiratory failure: PLAN: RECOMMENDATIONS: 1. Continue assist control mode of mechanical ventilation. Wean FiO2/PEEP for saturations greater than 90%. 2. Attempt to minimize sedation as tolerated. 3. Continue thiamine and folate. 4. Obtain blood and urine cultures. 5. Start empiric antimicrobials. 6. Continue PPI therapy twice daily. 7. Obtain renal ultrasound today. IMPRESSIONS: 1. Acute hypoxemic and hypercarbic respiratory failure status post V. fib cardiac arrest The patient was initially admitted for acute alcohol detoxification and was found unresponsive in V. fib arrest. The patient did receive ACLS with eventual return of spontaneous circulation. He was intubated as a consequence of the aforementioned. The patient will remain on assist control mode of mechanical ventilation. FiO2 and PEEP will be weaned as tolerated. Given that the patient developed fevers, will obtain blood and urine cultures and start him on empiric antimicrobials. Okay to initiate trophic tube feeds today. Echocardiogram did reveal a depressed ejection fraction at 35%. 2. Acute kidney injury Likely prerenal in etiology/ischemic ATN in the setting of cardiac arrest. Anticipate improvement with stabilization of hemodynamics. Continue to monitor urine output for now. Avoid nephrotoxic medications. No current indication for renal replacement therapy. Will obtain renal ultrasound today. If renal function continues to worsen, will obtain nephrology consultation. 3. Acute liver injury Likely secondary to cardiac arrest and hemodynamic instability leading to hypoperfusion. Anticipate improvement with stabilization of hemodynamics. Plan to repeat liver function profile tomorrow. 4. Acute alcohol withdrawal Continue current sedation regimen including propofol, fentanyl and Precedex. Continue thiamine and folate as ordered. 5. Anemia There is some concern for coffee-ground output from the patient's OG tube. Hemoglobin is currently stable. We will continue to monitor. Continue PPI twice daily as ordered. The patient remains on systemic anticoagulation. 6. History of prosthetic mitral valve/hypertension/hyperlipidemia Complicates care, management, recovery and prognosis. Continue home medications as indicated. TIME: 37 minutes of critical care time, independent of procedures, was spent addres sing the patient's acute combined respiratory failure, V. fib cardiac arrest, acute kidney injury, acute liver injury, acute alcohol withdrawal, anemia, review of all data and collaboration with the care team. Subjective Subjective The patient was seen and examined at the bedside this morning. Events from the last 24 hours have been reviewed. The patient is currently febrile with a T-max of 101.9 ?F. The patient is otherwise hemodynamically stable. He is currently being maintained on assist control mode of mechanical ventilation with an FiO2 requirement of 40% and PEEP of 5. Hemoglobin is stable at 8.7 g/dL. Platelet count is dropped to 70,000 this morning. Creatinine has worsened to 3.07. AST and ALT remain increased at 4607 and 1959, respectively. The patient remains on a continuous heparin infusion. He remains sedated on fentanyl, propofol and Precedex. Objective Data Objective Data The patient's most recent lab work, culture data and imaging studies have all been personally reviewed. Surface echocardiogram demonstrated normal LV size with moderate global LV systolic dysfunction and ejection fraction of 35%. Rapid coronavirus antigen testing was negative. Sputum culture is pending. Vital Signs: Vital Signs Temp Pulse Resp BP Pulse Ox 101.9 F H 101 H 18 98/68 90 03/09/21 07:00 03/09/21 07:00 03/09/21 07:00 03/09/21 07:00 03/09/21 07:00 Oxygen Delivery Method Mechanical Ventilator Weight: 58.6 kg Body Mass Index (BMI) 23.6 Intake & Output: Intake and Output for Last 24 Hours 03/07/21 03/08/21 03/09/21 23:59 23:59 23:59 Intake Total 86.12 / 97.70 1265.33 / 1290.53 248.25 / 248.25 Output Total 150 / 710 785 / 785 Balance 86.12 / 97.70 1115.33 / 580.53 -536.75 / -536.75 Lab / Micro Data Attestation: I reviewed the patient's lab results. Result Diagrams: 03/09/21 03:20 03/09/21 03:20 Labs: Laboratory Results - last 24 hr 03/08/21 05:50: WBC 6.3, RBC 3.79 L, Hgb 10.8 L, Hct 33.8 L, MCV 89.2 D, MCH 28.5, MCHC 32.0, RDW Std Deviation 50.4 H, RDW Coeff of Harjeet 15.5 H, Plt Count 89 L, MPV 11.9, Immature Gran % (Auto) 0.600, Neut % (Auto) 87.6 H, Lymph % (Auto) 6.7 L, [place]cl[place] % (Auto) 4.8, Eos % (Auto) 0.0, Baso % (Auto) 0.3, Absolute Neuts ( auto) 5.5, Absolute Lymphs (auto) 0.42 L, Nucleated RBC % 0.5, Platelet Estimate SLT DEC, Plt Morphology Comment LARGE 03/08/21 07:50: APTT 76.1 H 03/08/21 13:30: Hgb 9.6 L, Hct 28.8 L 03/08/21 13:30: APTT 78.0 H 03/08/21 13:30: Total Bilirubin 1.10 H, Direct Bilirubin 0.35 H, AST 5911 H, ALT 1693 H, Alkaline Phosphatase 93, Total Protein 6.1 L, Albumin 2.7 L, Globulin 3.4 03/08/21 18:10: Hgb 9.1 L, Hct 28.4 L 03/09/21 03:20: WBC 8.9, RBC 3.03 L, Hgb 8.7 L, Hct 26.8 L, MCV 88.4, MCH 28.7, MCHC 32.5, RDW Std Deviation 51.4 H, RDW Coeff of Harjeet 15.9 H, Plt Count 70 L, MPV 13.0 H, Immature Gran % (Auto) 0.300, Neut % (Auto) 88.4 H, Lymph % (Auto) 7.8 L, [place]cl[place] % (Auto) 2.8, Eos % (Auto) 0.4, Baso % (Auto) 0.3, Absolute Neuts (auto) 7.9 H, Absolute Lymphs (auto) 0.70 L, Nucleated RBC % 0.2, Plt Morphology Comment LARGE, Anisocytosis 2+ 03/09/21 03:20: Sodium 136, Potassium 4.2, Chloride 103, Carbon Dioxide 24.0, Anion Gap 9, BUN 37 H, Creatinine 3.07 H, Estim Creat Clear Calc 19.82, Est GFR (MDRD) Af Amer 27 L, Est GFR (MDRD) Non-Af 22 L, BUN/Creatinine Ratio 12.1, Glucose 106, Calcium 7.3 L, Total Bilirubin 0.80, Direct Bilirubin 0.36 H, AST 4607 H, ALT 1959 H, Alkaline Phosphatase 88, Total Protein 5.9 L, Albumin 2.6 L, Globulin 3.3 03/09/21 03:20: APTT 63.7 H Micro: Microbiology 03/07/21 23:00 Sputum, Induced/Lukens Gram Stain - Final 03/07/21 06:08 Nasal Secretion SARS-CoV-2 Antigen (Rapid) - Final ABG Data ABG results: ABG 03/08/21 13:14 Specimen Type ART Sample Site R Radial pH 7.36 Bicarbonate Actual 21.8 L Total CO2 23 Base Excess -4 L O2 Saturation 90 L O2 % 40 ABG pCO2 38.5 ABG pO2 61 L Lev Test Positive Respiration Rate 14 O2 Delivery Device Adult Vent Vent Mode AC Tidal Volume 400 POC PEEP 5 Radiography Diagnostic Testing: Radiology Impression Echocardiogram 03/08/21 09:30 Interpretation Summary The study was technically difficult. Contrast injection was performed. Based upon the 2D echocardiographic and contrast enhanced images obtained there appears to be normal left ventricular size with moderate global left ventricular systolic dysfunction. The estimated ejection fraction is 35 %. The left atrium is mildly enlarged. Stable appearing mechanical mitral valve apparatus. Trivial transvalvular insufficiency of the mitral valve. Trivial tricuspid valve insufficiency. Mild focal aortic valve calcification. Mild-Moderate (1-2+) aortic valve insufficiency. Calcified aortic root. Unable to estimate RV systolic pressure/pulmonary artery pressure due to technically difficult study. Unable to assess diastolic dysfunction. ICD or pacer leads identified within the right atrium ICD or pacer leads identified within the right ventricle. Ordering Physician: Samir Medina Referring Physician: Jono Cifuentes Performed By: Pepito Boo RCS Chest X-Ray 03/08/21 13:09 IMPRESSION: No interval change Electronically Signed: Heath Hull MD at 17:01 EST , Service support , Physical Exam Const General Appearance: intubated and patient mechanically ventilated HEENT normocephalic and head/scalp atraumatic Mouth: endotracheal tube in place and OG tube in place Eyes PERRL Neck supple General: trachea midline Chest inspection of chest normal Resp normal respiratory effort Auscultation: Negative for rales, rhonchi or wheezes Cardio regular rate and regular rhythm GI normal to inspection, nondistended, normoactive bowel sounds Extremity no clubbing, cyanosis or edema Skin no rashes or lesions noted Neuro Sensorium / Orientation: sedated on vent Charges/Coding Multi Select Codes Hospitalists' Procedures Procedures: [id number] Critial Care 1st Hr
--- NOTE | 2021-03-09 07:15 | US_ITS ---
STUDY: RENAL ULTRASOUND - COMPLETE REASON FOR EXAM: Male, 61 years old. [facility] TECHNIQUE: Ultrasound evaluation of the kidneys was performed with real-time and static shields-scale imaging. COMPARISON: Comparison is made with prior examination 12/28/2016. FINDINGS: RIGHT KIDNEY: Normal location of the right kidney, which is normal in size. The right kidney measures 10.7 cm x 5.6 cm x 4.1 cm. There is a normal cortex of the right kidney. The renal cortex measures 1.5 cm. There is no right renal mass or cyst. There are no right renal calculi. There is no right hydronephrosis. DISTAL RIGHT URETER: There is non-visualization of the distal right ureter. There is no demonstrated right ureterovesical junction calculus. There is no demonstrated right ureteral jet. LEFT KIDNEY: Normal location of the left kidney, which is normal in size. The left kidney measures 11.6 cm x 5 cm x 6.4 cm. There is a normal cortex of the left kidney. The renal cortex measures 1.7 cm. There is no left renal mass or cyst. There are no left renal calculi. There is no left hydronephrosis. DISTAL LEFT URETER: There is non-visualization of the distal left ureter. There is no demonstrated left ureterovesical junction calculus. There is no demonstrated left ureteral jet. BLADDER: The distended urinary bladder has a volume of 69 ml. A ECHAVARRIA catheter is seen within the urinary bladder. There is a normal wall thickness of the distended urinary bladder. There is no demonstrated mass within the urinary bladder. There are no demonstrated bladder calculi. US/Kidney and Bladder IMPRESSION: Normal ultrasound of the kidneys and urinary bladder. Electronically Signed: Zacarias Bennett MD at 14:23 EST , Service support ,
--- NOTE | 2021-03-09 08:24 | PCM.PN.HOSP ---
Subjective Subjective Patient remains on the vent awake but has not follow any purposeful commands did review results of patient 2D echo significant drop in his EF Objective Data Objective Data Vital Signs: Vital Signs Temp Pulse Resp BP Pulse Ox 101.9 F H 99 18 98/68 90 03/09/21 07:00 03/09/21 07:09 03/09/21 07:09 03/09/21 07:00 03/09/21 07:09 Oxygen Delivery Method Mechanical Ventilator Weight: 58.6 kg Body Mass Index (BMI) 23.6 Intake & Output: Intake and Output for Last 24 Hours 03/07/21 03/08/21 03/09/21 23:59 23:59 23:59 Intake Total 86.12 / 97.70 1265.33 / 1290.53 277.95 / 277.95 Output Total 150 / 710 785 / 785 Balance 86.12 / 97.70 1115.33 / 580.53 -507.05 / -507.05 Lab / Micro Data Result Diagrams: 03/09/21 03:20 03/09/21 03:20 Labs: Laboratory Results - last 24 hr 03/08/21 13:30: Hgb 9.6 L, Hct 28.8 L 03/08/21 13:30: APTT 78.0 H 03/08/21 13:30: Total Bilirubin 1.10 H, Direct Bilirubin 0.35 H, AST 5911 H, ALT 1693 H, Alkaline Phosphatase 93, Total Protein 6.1 L, Albumin 2.7 L, Globulin 3.4 03/08/21 18:10: Hgb 9.1 L, Hct 28.4 L 03/09/21 03:20: WBC 8.9, RBC 3.03 L, Hgb 8.7 L, Hct 26.8 L, MCV 88.4, MCH 28.7, MCHC 32.5, RDW Std Deviation 51.4 H, RDW Coeff of Harjeet 15.9 H, Plt Count 70 L, MPV 13.0 H, Immature Gran % (Auto) 0.300, Neut % (Auto) 88.4 H, Lymph % (Auto) 7.8 L, [place] % (Auto) 2.8, Eos % (Auto) 0.4, Baso % (Auto) 0.3, Absolute Neuts (auto) 7.9 H, Absolute Lymphs (auto) 0.70 L, Nucleated RBC % 0.2, Plt Morphology Comment LARGE, Anisocytosis 2+ 03/09/21 03:20: Sodium 136, Potassium 4.2, Chloride 103, Carbon Dioxide 24.0, Anion Gap 9, BUN 37 H, Creatinine 3.07 H, Estim Creat Clear Calc 19.82, Est GFR (MDRD) Af Amer 27 L, Est GFR (MDRD) Non-Af 22 L, BUN/Creatinine Ratio 12.1, Glucose 106, Calcium 7.3 L, Total Bilirubin 0.80, Direct Bilirubin 0.36 H, AST 4607 H, ALT 1959 H, Alkaline Phosphatase 88, Total Protein 5.9 L, Albumin 2.6 L, Globulin 3.3 03/09/21 03:20: APTT 63.7 H Micro: Microbiology 03/07/21 23:00 Sputum, Induced/Lukens Gram Stain - Final 03/07/21 06:08 Nasal Secretion SARS-CoV-2 Antigen (Rapid) - Final ABG Data ABG results: ABG 03/08/21 13:14 Specimen Type ART Sample Site R Radial pH 7.36 Bicarbonate Actual 21.8 L Total CO2 23 Base Excess -4 L O2 Saturation 90 L O2 % 40 ABG pCO2 38.5 ABG pO2 61 L Lev Test Positive Respiration Rate 14 O2 Delivery Device Adult Vent Vent Mode AC Tidal Volume 400 POC PEEP 5 Radiography Diagnostic Testing: Radiology Impression Echocardiogram 03/08/21 09:30 Interpretation Summary The study was technically difficult. Contrast injection was performed. Based upon the 2D echocardiographic and contrast enhanced images obtained there appears to be normal left ventricular size with moderate global left ventricular systolic dysfunction. The estimated ejection fraction is 35 %. The left atrium is mildly enlarged. Stable appearing mechanical mitral valve apparatus. Trivial transvalvular insufficiency of the mitral valve. Trivial tricuspid valve insufficiency. Mild focal aortic valve calcification. Mild-Moderate (1-2+) aortic valve insufficiency. Calcified aortic root. Unable to estimate RV systolic pressure/pulmonary artery pressure due to technically difficult study. Unable to assess diastolic dysfunction. ICD or pacer leads identified within the right atrium ICD or pacer leads identified within the right ventricle. Ordering Physician: Samir Medina Referring Physician: Jono Cifuentes Performed By: Pepito Boo RCS Chest X-Ray 03/08/21 13:09 IMPRESSION: No interval change Electronically Signed: Heath Hull MD at 17:01 EST , Service support , Physical Exam Narrative GENERAL: Awake on the vent HEENT: Atraumatic; EYES; Anicteric, Normal Conjunctiva NECK; supple, normal thyroid, RESPIRATORY: Diminished to auscultation CARDIOVASCULAR: Regular S1 S2, GI: soft, normoactive bowel sounds, : No Renal angle tenderness; EXTREMITIES: No edema, no clubbing, MUSCULOSKELETAL: no muscle waisting NEURO: Awake on the vent, does not follow commands Assessment & Plan Assessment/Plan (1) Tobacco abuse: (2) Alcohol abuse: (3) History of prosthetic mitral valve: (4) Noncompliance with medications: PLAN: Patient is a 61-year-old admitted with acute alcohol withdrawal with desire for detoxification. Patient was apparently found in the emergency department with face down. He was found unresponsive was found to be in V. fib. CODE BLUE was called patient was successfully resuscitated with ACLS with ROSC SC. Intubated and admitted to the intensive care unit 1. Cardiopulmonary arrest ?Secondary to ventricular fibrillation. Patient was successfully resuscitated using ACLS protocol. Cardiology consulted 2. Acute hypoxic respiratory failure ?Secondary to above patient was intubated following ROSC admitted to the intensive care unit placed on the vent consult placed to pulmonary/intensive care for vent management ?03/09/2021; patient is awake on the vent however does not follow any purposeful commands 3. Valvular heart disease ?With history of mitral valve prosthesis. Patient is on systemic anticoagulation with Coumadin INR was subtherapeutic started on heparin 4. 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 Paroxysmal A. fib ?Rate controlled 6. Chronic alcohol dependence ?Plan was for patient to have undergone detoxification however he coded prior to initiation of the program 7. Chronic heart failure ?Echo obtained on 08/11/2020 demonstrated EF of 60% -Echo repeated during this hospital stay demonstrated EF of 35% distant with heart failure with reduced ejection fraction 8. Essential hypertension ?BP stable 9. Tobacco dependence 10. DVT prophylaxis ?On systemic anticoagulation with heparin 11. Anemia - Secondary to chronic disorder monitoring H&H and transfuse if patient becomes symptomatic or hemoglobin falls below 7 Charges/Coding Visit Charges Inpatient E&M: 94275 Subs Hosp L3
[2021-03-09] MEDS: Chlorhexidine 15 ML PO ×2 (08:28→22:21)
--- NOTE | 2021-03-09 08:40 | PCM.RX.CS ---
Consult Pharmacy has been consulted to manage selected antiobiotic: Vancomycin Type of Consult: New start Labs: Sodium 136 mmol/L (136-145) 03/09/21 03:20 Potassium 4.2 mmol/L (3.5-5.1) 03/09/21 03:20 Chloride 103 mmol/L (98-107) 03/09/21 03:20 Carbon Dioxide 24.0 mmol/L (21.0-32.0) 03/09/21 03:20 Anion Gap 9 (5-15) 03/09/21 03:20 BUN 37 mg/dL (7-18) H 03/09/21 03:20 Creatinine 3.07 mg/dL (0.70-1.30) H 03/09/21 03:20 Est GFR (MDRD) Af Amer 27 mL/min (>60) L 03/09/21 03:20 Est GFR (MDRD) Non-Af 22 mL/min (>60) L 03/09/21 03:20 BUN/Creatinine Ratio 12.1 RATIO (10-20) 03/09/21 03:20 Glucose 106 mg/dL (74-106) 03/09/21 03:20 Microbiology: Microbiology 03/07/21 23:00 Sputum, Induced/Lukens Gram Stain - Final 03/07/21 06:08 Nasal Secretion SARS-CoV-2 Antigen (Rapid) - Final Weight used for dosin.6 kg Estimated Creatinine Clearance: 19.8ML/MIN Goal Trough: 15-20 mcg/mL Pharmacy Plan for Drug Dosing: Give initial loading dose of 1500mg IV x1 today. Due to the patient's CrCl being <20 and the SCr rising in the last few days (3.07 today), will not put the patient on a scheduled dose yet but will order a random level tomorrow morning to determine if a dose is needed tomorrow. Pharmacy Service will continue to monitor and adjust dosing as required. Follow-Up Labs: Trough Vancomycin - random Labs to be done on [date and time ordered]: 03/10/21 0600
--- NOTE | 2021-03-09 10:08 | PCM.PN.CARD ---
Subjective Subjective The patient remains in the ICU mechanically intubated/ventilated/sedated. Objective Data Vital Signs: Vital Signs Temp Pulse Resp BP Pulse Ox 101.9 F H 98 17 98/68 92 03/09/21 07:00 03/09/21 09:41 03/09/21 09:41 03/09/21 07:00 03/09/21 09:41 Oxygen Delivery Method Mechanical Ventilator Weight: 129 lb 3.054 oz Body Mass Index (BMI) 23.6 Intake & Output: Intake and Output for Last 24 Hours 03/07/21 03/08/21 03/09/21 23:59 23:59 23:59 Intake Total 86.12 / 97.70 1265.33 / 1290.53 377.95 / 377.95 Output Total 150 / 710 785 / 785 Balance 86.12 / 97.70 1115.33 / 580.53 -407.05 / -407.05 Lab / Micro Data Result Diagrams: 03/09/21 03:20 03/09/21 03:20 Labs: Laboratory Results - last 24 hr 03/08/21 13:30: Hgb 9.6 L, Hct 28.8 L 03/08/21 13:30: APTT 78.0 H 03/08/21 13:30: Total Bilirubin 1.10 H, Direct Bilirubin 0.35 H, AST 5911 H, ALT 1693 H, Alkaline Phosphatase 93, Total Protein 6.1 L, Albumin 2.7 L, Globulin 3.4 03/08/21 18:10: Hgb 9.1 L, Hct 28.4 L 03/09/21 03:20: WBC 8.9, RBC 3.03 L, Hgb 8.7 L, Hct 26.8 L, MCV 88.4, MCH 28.7, MCHC 32.5, RDW Std Deviation 51.4 H, RDW Coeff of Harjeet 15.9 H, Plt Count 70 L, MPV 13.0 H, Immature Gran % (Auto) 0.300, Neut % (Auto) 88.4 H, Lymph % (Auto) 7.8 L, [place] % (Auto) 2.8, Eos % (Auto) 0.4, Baso % (Auto) 0.3, Absolute Neuts (auto) 7.9 H, Absolute Lymphs (auto) 0.70 L, Nucleated RBC % 0.2, Plt Morphology Comment LARGE, Anisocytosis 2+ 03/09/21 03:20: Sodium 136, Potassium 4.2, Chloride 103, Carbon Dioxide 24.0, Anion Gap 9, BUN 37 H, Creatinine 3.07 H, Estim Creat Clear Calc 19.82, Est GFR (MDRD) Af Amer 27 L, Est GFR (MDRD) Non-Af 22 L, BUN/Creatinine Ratio 12.1, Glucose 106, Calcium 7.3 L, Total Bilirubin 0.80, Direct Bilirubin 0.36 H, AST 4607 H, ALT 1959 H, Alkaline Phosphatase 88, Total Protein 5.9 L, Albumin 2.6 L, Globulin 3.3 03/09/21 03:20: APTT 63.7 H Micro: Microbiology 03/07/21 23:00 Sputum, Induced/Lukens Gram Stain - Final ABG Data ABG results: ABG 03/08/21 13:14 Specimen Type ART Sample Site R Radial pH 7.36 Bicarbonate Actual 21.8 L Total CO2 23 Base Excess -4 L O2 Saturation 90 L O2 % 40 ABG pCO2 38.5 ABG pO2 61 L Lev Test Positive Respiration Rate 14 O2 Delivery Device Adult Vent Vent Mode AC Tidal Volume 400 POC PEEP 5 Cardiology Labs/Tests 03/08/21 13:14: pH 7.36, Bicarbonate Actual 21.8 L, Base Excess -4 L, O2 Saturation 90 L, ABG pCO2 38.5, ABG pO2 61 L, Lev Test Positive 03/08/21 13:30: Hgb 9.6 L, Hct 28.8 L 03/08/21 13:30: APTT 78.0 H 03/08/21 13:30: Total Bilirubin 1.10 H, Direct Bilirubin 0.35 H 03/08/21 18:10: Hgb 9.1 L, Hct 28.4 L 03/09/21 03:20: WBC 8.9, RBC 3.03 L, Hgb 8.7 L, Hct 26.8 L, MCV 88.4, MCH 28.7, MCHC 32.5, Plt Count 70 L, MPV 13.0 H, Immature Gran % (Auto) 0.300, Neut % (Auto) 88.4 H, Lymph % (Auto) 7.8 L, [place] % (Auto) 2.8, Eos % (Auto) 0.4, Baso % (Auto) 0.3, Absolute Neuts (auto) 7.9 H, Nucleated RBC % 0.2 03/09/21 03:20: Sodium 136, Potassium 4.2, Chloride 103, Carbon Dioxide 24.0, Anion Gap 9, BUN 37 H, Creatinine 3.07 H, Est GFR (MDRD) Af Amer 27 L, Est GFR (MDRD) Non-Af 22 L, BUN/Creatinine Ratio 12.1, Glucose 106, Calcium 7.3 L, Total Bilirubin 0.80, Direct Bilirubin 0.36 H 03/09/21 03:20: APTT 63.7 H Rhythm: Electronic ventricular paced Radiography Diagnostic Testing: Radiology Impression Echocardiogram 03/08/21 09:30 Interpretation Summary The study was technically difficult. Contrast injection was performed. Based upon the 2D echocardiographic and contrast enhanced images obtained there appears to be normal left ventricular size with moderate global left ventricular systolic dysfunction. The estimated ejection fraction is 35 %. The left atrium is mildly enlarged. Stable appearing mechanical mitral valve apparatus. Trivial transvalvular insufficiency of the mitral valve. Trivial tricuspid valve insufficiency. Mild focal aortic valve calcification. Mild-Moderate (1-2+) aortic valve insufficiency. Calcified aortic root. Unable to estimate RV systolic pressure/pulmonary artery pressure due to technically difficult study. Unable to assess diastolic dysfunction. ICD or pacer leads identified within the right atrium ICD or pacer leads identified within the right ventricle. Ordering Physician: Samir Medina Referring Physician: Jono Cifuentes Performed By: Pepito Boo RCS Chest X-Ray 03/08/21 13:09 IMPRESSION: No interval change Electronically Signed: Heath Hull MD at 17:01 EST , Service support , Physical Exam HEENT normocephalic and head/scalp atraumatic Neck no JVD Resp clear to auscultation bilaterally Cardio regular rate, regular rhythm, S1 normal heart sound and S2 normal heart sound GI normal to inspection, nondistended, normoactive bowel sounds Extremity no pedal edema Assessment & Plan Assessment/Plan (1) History of prosthetic mitral valve: PLAN: The history of mechanical mitral valve prosthesis. He does need to continue AHA antibiotic prophylaxis as well as anticoagulant therapy. His mitral valve has been reassessed by transthoracic echocardiogram and appears to be stable at this time. (2) Presence of permanent cardiac pacemaker: PLAN: The patient also has an underlying permanent pacemaker. This has been followed as an outpatient. It has been reported as functioning appropriately in the past. A request has been placed to have it reevaluated. (3) Hyperlipidemia: QUALIFIERS: Hyperlipidemia type: unspecified Qualified Code(s): E78.5 - Hyperlipidemia, unspecified PLAN: The patient should continue risk factor evaluation care as deemed appropriate. (4) Essential hypertension: PLAN: The patient's blood pressure will need to be followed with his medicines adjusted accordingly. 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 (6) Cardiac arrest: PLAN: The patient is reported to presenting to the hospital for nonvascular conditions and then being found in the emergency department on the floor in cardiopulmonary arrest with ventricular fibrillation requiring ACLS protocol/defibrillation x2 and subsequent mechanical intubation/ventilation and placement in the ICU. At the present time it is unclear as to the patient's underlying neurologic status as the patient is requiring sedation based upon concerns of alcohol withdrawal, etc. The patient's neurologic status will help guide further cardiovascular noncardiovascular evaluation and care of the patient. (7) Cardiomyopathy: PLAN: The patient's LV systolic function is diminished. This may be secondary to his cardiopulmonary arrest. Is unclear whether this is hypoxic driven versus being related to underlying CAD, etc. At the moment he will continue medical therapy and support as best as possible. Ideally over time, depending upon his neurologic response, etc., it may be reasonable to consider him for further evaluation in the cardiac catheterization laboratory. (8) Renal insufficiency: PLAN: The patient's creatinine level has markedly increased. Again this may be related to his cardiopulmonary arrest event. This does play a role in whether the patient will be able to be evaluated in the cardiac catheterization laboratory at some point in time based upon the concerns of IV contrast related nephropathy. Addt'l Comments The patient's case was discussed and reviewed with Dr. Roberts. This note was generated using a voice recognition system and there may be incorrect words, spelling or punctuation that were not noted when reviewing the office note prior to saving.
--- NOTE | 2021-03-09 10:44 | NURSING ---
Addendum entered by Juanita Schilling 03/09/21 10:51: [employer] is here at this time to investigate not [employer]. Original Note: [employer] is here at this time to investigate his pacemaker at this time.
[2021-03-09 12:30] LABS: M R Staph aureus DNA By PCR Negative (Negative); Probe Check PASS; Specimen Processing Control PASS
[2021-03-09] MEDS: Propofol 10MG/Ml 1,000 MG/100 ML Bottle 7 MG CONT INF (14:43)
[2021-03-09] MEDS: Vital High Protein 1,000 ML 20 ML GT (22:40)
[2021-03-10] VITALS (35 sets, daily range): BP systolic 76–107; BP diastolic 56–71; PULSE 84–119; RESP 12–17; TEMP 38.4–39.5; O2SAT 91–98
[2021-03-10] MEDS: Dexmedetomidine 1,000 mcg in 0.9% NS 240 mL 17.6 MCG CONT INF (00:01)
[2021-03-10] MEDS: 0.9% Saline Lock 10 ML Syringe IV ×3 (03:29→21:04)
[2021-03-10] MEDS: Propofol 10MG/Ml 1,000 MG/100 ML Bottle 5.3 MG CONT INF (03:29)
[2021-03-10 03:46] LABS: Absolute Lymphocyte Count 0.48 X10^3/uL (0.83-4.51); Absolute Neutrophil Count 3.3 X10^3/uL (2.0-7.7); Basophil# 0.01 X10^3/uL; Basophil% 0.2 % (0-1); Eosinophil# 0.03 X10^3/uL; Eosinophils% 0.7 % (0-5); Hematocrit 23.1 % (40-54); Hemoglobin 7.2 g/dL (13.0-16.5); Lymphocyte # 0.48 X10^3/ul (0.83-4.51); Lymphocyte % 11.9 % (19-41); Mean Corp Hgb Conc 31.2 g/dL (32-36); Mean Corpuscular Hgb 28.3 pg (27.0-32.0); Mean Corpuscular Volume 90.9 fL (80-94); Mean Platelet Vol. 11.2 fl (6.2-12.0); NRBC Flagged by Analyzer 0.7 % (0-5); Neutrophil # 3.27 X10^3/uL (2.7-7.7); Neutrophil % 81.5 % (47-70); POSITIVE COUNT YES; POSITIVE DIFFERENTIAL YES; POSITIVE MORPHOLOGY YES; Platelet Count 75 K/mm3 (150-450); RBC Distribution Width CV 15.7 % (11.6-14.6); RBC Distribution Width SD 52.5 fl (35.1-43.9); Red Blood Count 2.54 M/mm3 (4.6-6.2)
[2021-03-10 03:47] LABS: Differential Indicated SCAN CRITERIA MET
[2021-03-10 04:02] LABS: Partial Thromboplast Time 53.8 Seconds (24.1-36.2)
[2021-03-10 04:11] LABS: Anisocytosis 1+
[2021-03-10 04:14] LABS: AST(SGOT) 2146 U/L (15-37); Alanine Aminotransfer ALT/SGPT 1623 U/L (16-61); Albumin, Serum 2.1 g/dL (3.2-5.0); Alkaline Phosphatase 67 U/L (45-117); Anion Gap 8 (5-15); BUN 34 mg/dL (7-18); BUN/Creat Ratio 22.8 RATIO (10-20); Bilirubin, Direct 0.45 mg/dL (0.00-0.30); Chloride 109 mmol/L (98-107); Creatinine, Serum 1.49 mg/dL (0.70-1.30); EST Glomerular Filtration Rate 51 mL/min (>60); Est Glom Filt Rate - Afr Amer 61 mL/min (>60); Estimated Creatinine Clearance 40.84 ml/min; Globulin 3.5 g/dL (2.2-4.2); Glucose 114 mg/dL (74-106); Potassium 4.1 mmol/L (3.5-5.1); Protein, Total 5.6 g/dL (6.4-8.2); Sodium Level 141 mmol/L (136-145)
[2021-03-10 04:22] LABS: Vancomycin, Random Level 10.3 ug/mL (0.0-15.0)
--- NOTE | 2021-03-10 04:49 | NURSING ---
Heparin gtt increased to 900 units/hr per protocol; 1,000units required to bolus not given as no current order on MAY; will address w/ this AM.
--- NOTE | 2021-03-10 05:53 | PCM.RX.CS ---
Consult Pharmacy has been consulted to manage selected antiobiotic: Vancomycin Type of Consult: Follow-up Suspected Infection: Other Prior Doses of Antibiotics Received/Current Regimen: Medications Vancomycin HCl () 500 mg in 100 mls @ 100 mls/hr IV Q12H CRUZ Discontinued Medications Vancomycin HCl 1,500 mg/ (Sodium Chloride) 530 mls @ 250 mls/hr IV X1 ONE Stop: 03/09/21 10:22 Last Admin: 03/09/21 10:35 Dose: Infused Labs: Sodium 141 mmol/L (136-145) 03/10/21 03:25 Potassium 4.1 mmol/L (3.5-5.1) 03/10/21 03:25 Chloride 109 mmol/L (98-107) H 03/10/21 03:25 Carbon Dioxide 24.0 mmol/L (21.0-32.0) 03/10/21 03:25 Anion Gap 8 (5-15) 03/10/21 03:25 BUN 34 mg/dL (7-18) H 03/10/21 03:25 Creatinine 1.49 mg/dL (0.70-1.30) H 03/10/21 03:25 Est GFR (MDRD) Af Amer 61 mL/min (>60) 03/10/21 03:25 Est GFR (MDRD) Non-Af 51 mL/min (>60) L 03/10/21 03:25 BUN/Creatinine Ratio 22.8 RATIO (10-20) H 03/10/21 03:25 Glucose 114 mg/dL (74-106) H 03/10/21 03:25 Random Vancomycin 10.3 ug/mL (0.0-15.0) 03/10/21 03:25 Microbiology: Microbiology 03/07/21 23:00 Sputum, Induced/Lukens Gram Stain - Final 03/07/21 23:00 Sputum, Induced/Lukens Respiratory Culture - Preliminary Alpha Hemolytic Streptococcus 03/07/21 06:08 Nasal Secretion SARS-CoV-2 Antigen (Rapid) - Final Weight used for dosin.8 kg Estimated Creatinine Clearance: 41 Goal Trough: 15-20 mcg/mL Pharmacy Plan for Drug Dosing: Random vancomycin level was 10.3. With renal function improving greatly it was determined to start a routine dose of 500mg q12h. A trough level will be drawn prior to the 4th dose. Pharmacy Service will continue to monitor and adjust dosing as required. Follow-Up Labs: Trough Vancomycin Labs to be done on [date and time ordered]: 03/11/21 @[id number]
[2021-03-10] MEDS: Vancomycin IV 500 MG/100 ML BAG 100 MG IV ×2 (06:22→17:49)
--- NOTE | 2021-03-10 06:45 | PN.CC_ITS ---
Assessment & Plan Assessment/Plan (1) Acute respiratory failure: PLAN: RECOMMENDATIONS: 1. Continue assist control mode of mechanical ventilation. Wean FiO2/PEEP for saturations greater than 90%. 2. Attempt to limit sedative medications. 3. Okay to discontinue thiamine and folate. 4. Continue antimicrobials. 5. Continue trophic tube feeds. 6. Transfuse blood products as ordered. Check H&H posttransfusion. 7. Continue PPI therapy twice daily. IMPRESSIONS: 1. Acute hypoxemic and hypercarbic respiratory failure status post V. fib cardiac arrest The patient was initially admitted for acute alcohol detoxification and was foun d unresponsive in V. fib arrest. The patient did receive ACLS with eventual return of spontaneous circulation. He was intubated as a consequence of the aforementioned. The patient will remain on assist control mode of mechanical ventilation. FiO2 and PEEP will be weaned as tolerated. In light of the fact that the patient developed fevers, empiric antimicrobials were initiated. Cultures are currently pending. Continue trophic tube feeds for now. Echocardiogram did reveal a depressed ejection fraction at 35%. The patient will likely require additional cardiac work-up. 2. Acute kidney injury Improving. Likely prerenal in etiology/ischemic ATN in the setting of cardiac arrest. Anticipate improvement with stabilization of hemodynamics. Continue to monitor urine output for now. Avoid nephrotoxic medications. No current indication for renal replacement therapy. 3. Acute liver injury Improving. Likely secondary to cardiac arrest and hemodynamic instability leading to hypoperfusion. Anticipate improvement with stabilization of hemodynamics. 4. Acute alcohol withdrawal Continue current sedation regimen including propofol, fentanyl and Precedex. 5. Anemia There is some concern for coffee-ground output from the patient's OG tube. The patient's hemoglobin did fall this morning 7.2 g/dL. Accordingly, he will be transfused blood products. Check H&H posttransfusion. Place heparin infusion on hold for now. Continue PPI therapy twice daily. 6. History of prosthetic mitral valve/hypertension/hyperlipidemia Complicates care, management, recovery and prognosis. Continue home medications as indicated. TIME: 37 minutes of critical care time, independent of procedures, was spent addressing the patient's acute combined respiratory failure, V. fib cardiac arrest, acute kidney injury, acute liver injury, acute alcohol withdrawal, anemia, review of all data and collaboration with the care team. Subjective Subjective The patient was seen and examined at the bedside this morning. Events from the last 24 hours have been reviewed. The patient is currently febrile with a T-max of 101.9 ?F. The patient is otherwise hemodynamically stable. He is currently being maintained on assist control mode of mechanical ventilation with an FiO2 requirement of 35% and PEEP of 5. Hemoglobin has dropped to 7.2 g/dL. Heparin is currently on hold. Nursing staff did report bruising to his right chest. He is currently sedated on fentanyl, Precedex and propofol. The patient is currently documented to be overall net +1.9 L for the hospitalization. Platelet count is stable at 75,000. Creatinine has improved to 1.49. Transaminases are improving. Objective Data Objective Data The patient's most recent lab work, culture data and imaging studies have all been personally reviewed. Surface echocardiogram demonstrated normal LV size with moderate global LV systolic dysfunction and ejection fraction of 35%. Rapid coronavirus antigen testing was negative. Sputum culture is currently growing alpha hemolytic Streptococcus. Vital Signs: Vital Signs Temp Pulse Resp BP Pulse Ox 101.3 F H 84 13 84/58 L 96 03/10/21 06:00 03/10/21 06:00 03/10/21 06:00 03/10/21 06:00 03/10/21 06:00 Oxygen Delivery Method Mechanical Ventilator Weight: 58.8 kg Body Mass Index (BMI) 23.6 Intake & Output: Intake and Output for Last 24 Hours 03/08/21 03/09/21 03/10/21 23:59 23:59 23:59 Intake Total 1265.33 / 1290.53 2067.74 / 2115.44 267.34 / 267.34 Output Total 150 / 710 1610 / 1735 260 / 260 Balance 1115.33 / 580.53 457.74 / 380.44 7.34 / 7.34 Lab / Micro Data Attestation: I reviewed the patient's lab results. Result Diagrams: 03/10/21 03:25 03/10/21 03:25 Labs: Laboratory Results - last 24 hr 03/09/21 07:45: MRSA (PCR) Negative 03/10/21 03:25: WBC 4.0 L, RBC 2.54 L, Hgb 7.2 L, Hct 23.1 L, MCV 90.9, MCH 28.3, MCHC 31.2 L, RDW Std Deviation 52.5 H, RDW Coeff of Harjeet 15.7 H, Plt Count 75 L, MPV 11.2, Immature Gran % (Auto) 0.700, Neut % (Auto) 81.5 H, Lymph % (Auto) 11.9 L, [place] % (Auto) 5.0, Eos % (Auto) 0.7, Baso % (Auto) 0.2, Absolute Neuts (auto) 3.3, Absolute Lymphs (auto) 0.48 L, Nucleated RBC % 0.7, Diff Path Review May foll, Anisocytosis 1+ 03/10/21 03:25: Sodium 141, Potassium 4.1, Chloride 109 H, Carbon Dioxide 24.0, Anion Gap 8, BUN 34 H, Creatinine 1.49 H, Estim Creat Clear Calc 40.84, Est GFR (MDRD) Af Amer 61, Est GFR (MDRD) Non-Af 51 L, BUN/Creatinine Ratio 22.8 H, Glucose 114 H, Calcium 7.0 L, Total Bilirubin 0.90, Direct Bilirubin 0.45 H, AST 2146 H, ALT 1623 H, Alkaline Phosphatase 67, Total Protein 5.6 L, Albumin 2.1 L, Globulin 3.5 03/10/21 03:25: Random Vancomycin 10.3 03/10/21 03:25: APTT 53.8 H 03/10/21 06:35: Crossmatch See Detail Micro: Microbiology 03/07/21 23:00 Sputum, Induced/Lukens Gram Stain - Final 03/07/21 23:00 Sputum, Induced/Lukens Respiratory Culture - Preliminary Alpha Hemolytic Streptococcus 03/07/21 06:08 Nasal Secretion SARS-CoV-2 Antigen (Rapid) - Final Radiography Diagnostic Testing: Radiology Impression Renal Ultrasound 03/09/21 07:15 IMPRESSION: Normal ultrasound of the kidneys and urinary bladder. Electronically Signed: Zacarias Bennett MD at 14:23 EST , Service support , Physical Exam Const General Appearance: intubated and patient mechanically ventilated HEENT normocephalic and head/scalp atraumatic Mouth: endotracheal tube in place and OG tube in place Eyes PERRL Neck supple General: trachea midline Chest inspection of chest normal Resp normal respiratory effort Auscultation: Negative for rales, rhonchi or wheezes Cardio regular rate and regular rhythm GI normal to inspection, nondistended, normoactive bowel sounds Extremity no clubbing, cyanosis or edema Skin no rashes or lesions noted Neuro Sensorium / Orientation: sedated on vent Charges/Coding Procedures Hospitalists Procedures: 08282 Critial Care 1st Hr
--- NOTE | 2021-03-10 07:20 | PCM.PN.HOSP ---
Subjective Subjective Patient seen remains on the vent. His heparin drip discontinued in view of significant drop in his hemoglobin from 11.3-7.2. Objective Data Objective Data Vital Signs: Vital Signs Temp Pulse Resp BP Pulse Ox 101.4 F H 84 14 86/59 L 95 03/10/21 07:00 03/10/21 07:00 03/10/21 07:00 03/10/21 07:00 03/10/21 07:00 Oxygen Delivery Method Mechanical Ventilator Weight: 58.8 kg Body Mass Index (BMI) 23.6 Intake & Output: Intake and Output for Last 24 Hours 03/08/21 03/09/21 03/10/21 23:59 23:59 23:59 Intake Total 1265.33 / 1290.53 2067.74 / 2115.44 338.14 / 338.14 Output Total 150 / 710 1610 / 1735 260 / 260 Balance 1115.33 / 580.53 457.74 / 380.44 78.14 / 78.14 Lab / Micro Data Result Diagrams: 03/10/21 03:25 03/10/21 03:25 Labs: Laboratory Results - last 24 hr 03/09/21 07:45: MRSA (PCR) Negative 03/10/21 03:25: WBC 4.0 L, RBC 2.54 L, Hgb 7.2 L, Hct 23.1 L, MCV 90.9, MCH 28.3, MCHC 31.2 L, RDW Std Deviation 52.5 H, RDW Coeff of Harjeet 15.7 H, Plt Count 75 L, MPV 11.2, Immature Gran % (Auto) 0.700, Neut % (Auto) 81.5 H, Lymph % (Auto) 11.9 L, [place] % (Auto) 5.0, Eos % (Auto) 0.7, Baso % (Auto) 0.2, Absolute Neuts (auto) 3.3, Absolute Lymphs (auto) 0.48 L, Nucleated RBC % 0.7, Diff Path Review May foll, Anisocytosis 1+ 03/10/21 03:25: Sodium 141, Potassium 4.1, Chloride 109 H, Carbon Dioxide 24.0, Anion Gap 8, BUN 34 H, Creatinine 1.49 H, Estim Creat Clear Calc 40.84, Est GFR (MDRD) Af Amer 61, Est GFR (MDRD) Non-Af 51 L, BUN/Creatinine Ratio 22.8 H, Glucose 114 H, Calcium 7.0 L, Total Bilirubin 0.90, Direct Bilirubin 0.45 H, AST 2146 H, ALT 1623 H, Alkaline Phosphatase 67, Total Protein 5.6 L, Albumin 2.1 L, Globulin 3.5 03/10/21 03:25: Random Vancomycin 10.3 03/10/21 03:25: APTT 53.8 H 03/10/21 06:35: Crossmatch See Detail Micro: Microbiology 03/07/21 23:00 Sputum, Induced/Lukens Gram Stain - Final 03/07/21 23:00 Sputum, Induced/Lukens Respiratory Culture - Preliminary Alpha Hemolytic Streptococcus 03/07/21 06:08 Nasal Secretion SARS-CoV-2 Antigen (Rapid) - Final Radiography Diagnostic Testing: Radiology Impression Renal Ultrasound 03/09/21 07:15 IMPRESSION: Normal ultrasound of the kidneys and urinary bladder. Electronically Signed: Zacarias Bennett MD at 14:23 EST , Service support , Physical Exam Narrative GENERAL: Awake on the vent HEENT: Atraumatic; EYES; Anicteric, Normal Conjunctiva NECK; supple, normal thyroid, RESPIRATORY: Diminished to auscultation CARDIOVASCULAR: Regular S1 S2, GI: soft, normoactive bowel sounds, : No Renal angle tenderness; EXTREMITIES: No edema, no clubbing, MUSCULOSKELETAL: no muscle waisting NEURO: Awake on the vent, does not follow commands Assessment & Plan Assessment/Plan (1) Tobacco abuse: (2) Alcohol abuse: (3) History of prosthetic mitral valve: (4) Noncompliance with medications: PLAN: Patient is a 61-year-old admitted with acute alcohol withdrawal with desire for detoxification. Patient was apparently found in the emergency department with face down. He was found unresponsive was found to be in V. fib. CODE BLUE was called patient was successfully resuscitated with ACLS with ROSC SC. Intubated and admitted to the intensive care unit 1. Cardiopulmonary arrest ?Secondary to ventricular fibrillation. Patient was successfully resuscitated using ACLS protocol. Cardiology consulted 2. Acute hypoxic respiratory failure ?Secondary to above patient was intubated following ROSC admitted to the intensive care unit placed on the vent consult placed to pulmonary/intensive care for vent management ?03/09/2021; patient is awake on the vent however does not follow any purposeful commands 03/10/2021. Patient remains on the vent currently sedated 3. Valvular heart disease ?With history of mitral valve prosthesis. Patient is on systemic anticoagulation with Coumadin INR was subtherapeutic started on heparin 4. 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 Paroxysmal A. fib ?Rate controlled 6. Chronic alcohol dependence ?Plan was for patient to have undergone detoxification however he coded prior to initiation of the program 7. Chronic heart failure ?Echo obtained on 08/11/2020 demonstrated EF of 60% -Echo repeated during this hospital stay demonstrated EF of 35% distant with heart failure with reduced ejection fraction 8. Essential hypertension ?BP stable 9. Tobacco dependence 10. DVT prophylaxis ?On systemic anticoagulation with heparin 11. Anemia - Secondary to chronic disorder monitoring H&H and transfuse if patient becomes symptomatic or hemoglobin falls below 7 ?03/10/2021; hemoglobin down to 7.2 12. Acute transaminitis ?Secondary to shock liver from patient cardiopulmonary arrest monitoring with daily LFTs Charges/Coding Visit Charges Inpatient E&M: 63168 Subs Hosp L3
--- NOTE | 2021-03-10 07:53 | PN.CARD_ITS ---
Subjective Subjective The patient remains in the ICU mechanically intubated/ventilated/sedated. Objective Data Vital Signs: Vital Signs Temp Pulse Resp BP Pulse Ox 101.4 F H 84 14 86/59 L 95 03/10/21 07:00 03/10/21 07:00 03/10/21 07:00 03/10/21 07:00 03/10/21 07:00 Oxygen Delivery Method Mechanical Ventilator Weight: 129 lb 10.109 oz Body Mass Index (BMI) 23.6 Intake & Output: Intake and Output for Last 24 Hours 03/08/21 03/09/21 03/10/21 23:59 23:59 23:59 Intake Total 1265.33 / 1290.53 2067.74 / 2115.44 338.14 / 338.14 Output Total 150 / 710 1610 / 1735 260 / 260 Balance 1115.33 / 580.53 457.74 / 380.44 78.14 / 78.14 Lab / Micro Data Result Diagrams: 03/10/21 03:25 03/10/21 03:25 Labs: Laboratory Results - last 24 hr 03/09/21 07:45: MRSA (PCR) Negative 03/10/21 03:25: WBC 4.0 L, RBC 2.54 L, Hgb 7.2 L, Hct 23.1 L, MCV 90.9, MCH 28.3, MCHC 31.2 L, RDW Std Deviation 52.5 H, RDW Coeff of Harjeet 15.7 H, Plt Count 75 L, MPV 11.2, Immature Gran % (Auto) 0.700, Neut % (Auto) 81.5 H, Lymph % (Auto) 11.9 L, [place] % (Auto) 5.0, Eos % (Auto) 0.7, Baso % (Auto) 0.2, Absolute Neuts (auto) 3.3, Absolute Lymphs (auto) 0.48 L, Nucleated RBC % 0.7, Diff Path Review May foll, Anisocytosis 1+ 03/10/21 03:25: Sodium 141, Potassium 4.1, Chloride 109 H, Carbon Dioxide 24.0, Anion Gap 8, BUN 34 H, Creatinine 1.49 H, Estim Creat Clear Calc 40.84, Est GFR (MDRD) Af Amer 61, Est GFR (MDRD) Non-Af 51 L, BUN/Creatinine Ratio 22.8 H, Glucose 114 H, Calcium 7.0 L, Total Bilirubin 0.90, Direct Bilirubin 0.45 H, AST 2146 H, ALT 1623 H, Alkaline Phosphatase 67, Total Protein 5.6 L, Albumin 2.1 L, Globulin 3.5 03/10/21 03:25: Random Vancomycin 10.3 03/10/21 03:25: APTT 53.8 H 03/10/21 06:35: Crossmatch See Detail Micro: Microbiology 03/07/21 23:00 Sputum, Induced/Lukens Gram Stain - Final 03/07/21 23:00 Sputum, Induced/Lukens Respiratory Culture - Preliminary Alpha Hemolytic Streptococcus Cardiology Labs/Tests 03/10/21 03:25: WBC 4.0 L, RBC 2.54 L, Hgb 7.2 L, Hct 23.1 L, MCV 90.9, MCH 28.3, MCHC 31.2 L, Plt Count 75 L, MPV 11.2, Immature Gran % (Auto) 0.700, Neut % (Auto) 81.5 H, Lymph % (Auto) 11.9 L, [place] % (Auto) 5.0, Eos % (Auto) 0.7, Baso % (Auto) 0.2, Absolute Neuts (auto) 3.3, Nucleated RBC % 0.7 03/10/21 03:25: Sodium 141, Potassium 4.1, Chloride 109 H, Carbon Dioxide 24.0, Anion Gap 8, BUN 34 H, Creatinine 1.49 H, Est GFR (MDRD) Af Amer 61, Est GFR ( RD) Non-Af 51 L, BUN/Creatinine Ratio 22.8 H, Glucose 114 H, Calcium 7.0 L, Total Bilirubin 0.90, Direct Bilirubin 0.45 H 03/10/21 03:25: APTT 53.8 H Rhythm: Electronic ventricular paced rhythm Radiography Diagnostic Testing: Radiology Impression Renal Ultrasound 03/09/21 07:15 IMPRESSION: Normal ultrasound of the kidneys and urinary bladder. Electronically Signed: Zacarias Bennett MD at 14:23 EST , Service support , Physical Exam HEENT normocephalic and head/scalp atraumatic Neck no JVD Resp clear to auscultation bilaterally Cardio regular rate, regular rhythm, S1 normal heart sound and S2 normal heart sound GI normal to inspection, nondistended, normoactive bowel sounds Extremity no pedal edema Assessment & Plan Assessment/Plan (1) History of prosthetic mitral valve: PLAN: The history of mechanical mitral valve prosthesis. He does need to continue AHA antibiotic prophylaxis as well as anticoagulant therapy. His mitral valve has been reassessed by transthoracic echocardiogram and appears to be stable at this time. (2) Presence of permanent cardiac pacemaker: PLAN: The patient also has an underlying permanent pacemaker. This has been followed as an outpatient. It has been reported as functioning appropriately in the past. A request has been placed to have it reevaluated. (3) Hyperlipidemia: QUALIFIERS: Hyperlipidemia type: unspecified Qualified Code(s): E78.5 - Hyperlipidemia, unspecified PLAN: The patient should continue risk factor evaluation care as deemed appropriate. (4) Essential hypertension: PLAN: The patient's blood pressure will need to be followed with his medicines adjusted accordingly. (5) assisted current use of anticoagulant: PLAN: The patient has been on long-term anticoagulant therapy secondary to his underlying mechanical mitral valve prosthesis. At the moment the patient's hemoglobin continues to decline. Thus at the present time the IV heparin may have to be placed on temporary hold- hopefully briefly-with respect to the declining hemoglobin and the need for additional evaluation and care. However, the patient cannot remain without anticoagulation indefinitely based upon his underlying mechanical mitral valve prosthesis and the risk for associated thrombotic events, etc. (6) Cardiac arrest: PLAN: The patient is reported to presenting to the hospital for nonvascul ar conditions and then being found in the emergency department on the floor in cardiopulmonary arrest with ventricular fibrillation requiring ACLS protocol/defibrillation x2 and subsequent mechanical intubation/ventilation and placement in the ICU. At the present time it is unclear as to the patient's underlying neurologic status as the patient is requiring sedation based upon concerns of alcohol withdrawal, etc. The patient's neurologic status will help guide further cardiovascular noncardiovascular evaluation and care of the patient. (7) Cardiomyopathy: PLAN: The patient's LV systolic function is diminished. This may be secondary to his cardiopulmonary arrest. Is unclear whether this is hypoxic driven versus being related to underlying CAD, etc. At the moment he will continue medical therapy and support as best as possible. However, medications such as beta-blockers, afterload reducing agents, etc. do not appear to be appropriate at this time secondary to his hypotension. Ideally over time, depending upon his neurologic response, etc., it may be reasonable to consider him for further evaluation in the cardiac catheterization laboratory. (8) Renal insufficiency: PLAN: It has been noted to subsequently decrease. The patient's creatinine level has markedly increased. Again this may be related to his cardiopulmonary arrest event. This does play a role in whether the patient will be able to be evaluated in the cardiac catheterization laboratory at some point in time based upon the concerns of IV contrast related nephropathy. (9) Hypotension: PLAN: The patient is hypotensive. He may need additional IV vasopressor support depending upon his overall clinical status and future plans. (10) Fever: PLAN: The patient also remains febrile with temperatures of approximately 101.4. It is unclear whether this is related to his cardiopulmonary arrest event versus an underlying infectious disease related issue. He will continue evaluation care per internal medicine and critical care medicine/pulmonology. Addt'l Comments Overall, from a cardiac standpoint, the patient remains in the ICU mechanically intubated and ventilated continuing supportive therapy as best as possible. There is concerned about his declining hemoglobin levels. Thus his IV heparin will be placed on temporary hold, however, as noted above he cannot remain without anticoagulation indefinitely secondary to his underlying mechanical mitral valve prosthesis and the concern of associated thrombosis. The patient does appear to have not only cardiovascular but multiple nonc ardiovascular comorbidities. Depending upon the patient's clinical course consideration may have to be given as to whether or not the patient should be considered for comfort care/palliative care/hospice care. This note was generated using a voice recognition system and there may be incorrect words, spelling or punctuation that were not noted when reviewing the office note prior to saving. The patient's case was discussed with Dr. Nava and the aforementioned information was also conveyed to Dr. Roberts. This note was generated using a voice recognition system and there may be incorrect words, spelling or punctuation that were not noted when reviewing the office note prior to saving.
[2021-03-10] MEDS: Chlorhexidine 15 ML PO ×2 (10:20→21:04)
[2021-03-10] MEDS: 0.9% Normal Saline 250 ML IV.SOLN. IV (10:32)
[2021-03-10 14:15] LABS: Pathologist Review Reviewed
[2021-03-10] MEDS: QUEtiapine 25 MG Tablet 50 MG GT ×2 (15:12→21:03)
[2021-03-10] MEDS: Dexmedetomidine 1,000 mcg in 0.9% NS 240 mL 22 MCG CONT INF (15:17)
[2021-03-10 20:39] LABS: Hematocrit 29.5 % (40-54); Hemoglobin 9.6 g/dL (13.0-16.5); POSITIVE COUNT YES
[2021-03-10] MEDS: 0.9% Normal Saline 1,000 ML 100 ML IV (23:15)
[2021-03-11] VITALS (39 sets, daily range): BP systolic 80–148; BP diastolic 57–107; PULSE 82–165; RESP 14–32; TEMP 37.6–39.4; O2SAT 70–100
[2021-03-11] MEDS: Propofol 10MG/Ml 1,000 MG/100 ML Bottle 10.5 MG CONT INF (03:44)
[2021-03-11] MEDS: Dexmedetomidine 1,000 mcg in 0.9% NS 240 mL 22 MCG CONT INF (03:50)
[2021-03-11 04:21] LABS: Absolute Lymphocyte Count 0.61 X10^3/uL (0.83-4.51); Absolute Neutrophil Count 3.1 X10^3/uL (2.0-7.7); Basophil# 0.04 X10^3/uL; Basophil% 0.9 % (0-1); Eosinophil# 0.09 X10^3/uL; Eosinophils% 2.1 % (0-5); Lymphocyte # 0.61 X10^3/ul (0.83-4.51); Lymphocyte % 14.1 % (19-41); Mean Corp Hgb Conc 32.3 g/dL (32-36); Mean Corpuscular Hgb 29.5 pg (27.0-32.0); Mean Corpuscular Volume 91.4 fL (80-94); Mean Platelet Vol. 11.7 fl (6.2-12.0); Monocyte# 0.46 X10^3/uL; Monocyte% 10.6 % (0-10); NRBC Flagged by Analyzer 2.8 % (0-5); Neutrophil # 3.09 X10^3/uL (2.7-7.7); Neutrophil % 71.4 % (47-70); POSITIVE COUNT YES; POSITIVE MORPHOLOGY YES; Platelet Count 74 K/mm3 (150-450); RBC Distribution Width SD 56.9 fl (35.1-43.9); Red Blood Count 3.39 M/mm3 (4.6-6.2); White Blood Count 4.3 K/mm3 (4.4-11.0)
[2021-03-11 04:23] LABS: Differential Indicated SCAN CRITERIA MET
[2021-03-11 04:40] LABS: AST(SGOT) 733 U/L (15-37); Alanine Aminotransfer ALT/SGPT 945 U/L (16-61); Albumin, Serum 1.8 g/dL (3.2-5.0); Alkaline Phosphatase 72 U/L (45-117); Anion Gap 7 (5-15); BUN 25 mg/dL (7-18); Calcium,Total 7.5 mg/dL (8.5-10.1); Chloride 115 mmol/L (98-107); Creatinine, Serum 1.04 mg/dL (0.70-1.30); EST Glomerular Filtration Rate 77 mL/min (>60); Est Glom Filt Rate - Afr Amer 93 mL/min (>60); Estimated Creatinine Clearance 58.51 ml/min; Globulin 4.2 g/dL (2.2-4.2); Glucose 123 mg/dL (74-106); Potassium 3.7 mmol/L (3.5-5.1); Sodium Level 144 mmol/L (136-145)
[2021-03-11 04:59] LABS: Partial Thromboplast Time 30.6 Seconds (24.1-36.2)
[2021-03-11] MEDS: 0.9% Normal Saline 1,000 ML 100 ML IV (05:27)
[2021-03-11] MEDS: Vancomycin IV 500 MG/100 ML BAG 100 MG IV ×2 (06:23→19:27)
--- NOTE | 2021-03-11 06:46 | PCM.PN.INT ---
Assessment & Plan Assessment/Plan (1) Acute respiratory failure: PLAN: RECOMMENDATIONS: 1. Continue assist control mode of mechanical ventilation. Wean FiO2/PEEP for saturations greater than 90%. 2. Attempt to limit sedative medications. 3. Continue antimicrobials. 4. Obtain repeat blood cultures. 5. Continue trophic tube feeds. 6. Continue to monitor H&H daily and transfuse if hemoglobin drops below 7 g/dL. 7. Restart heparin drip today. 8. Continue PPI therapy twice daily. IMPRESSIONS: 1. Acute hypoxemic and hypercarbic respiratory failure status post V. fib cardiac arrest The patient was initially admitted for acute alcohol detoxification and was found unresponsive in V. fib arrest. The patient did receive ACLS with eventual return of spontaneous circulation. He was intubated as a consequence of the aforementioned. The patient will remain on assist control mode of mechanical ventilation. FiO2 and PEEP will be weaned as tolerated. In light of the fact that the patient developed fevers, empiric antimicrobials were initiated. Cultures are currently pending. Continue trophic tube feeds for now. Echocardiogram did reveal a depressed ejection fraction at 35%. The patient will likely require additional cardiac work-up. 2. Acute kidney injury Improving. Likely prerenal in etiology/ischemic ATN in the setting of cardiac arrest. Anticipate improvement with stabilization of hemodynamics. Continue to monitor urine output for now. Avoid nephrotoxic medications. No current indication for renal replacement therapy. 3. Acute liver injury Improving. Likely secondary to cardiac arrest and hemodynamic instability leading to hypoperfusion. Anticipate improvement with stabilization of hemodynamics. 4. Acute alcohol withdrawal Continue current sedation regimen including propofol, fentanyl and Precedex. 5. Anemia There is some concern for coffee-ground output from the patient's OG tube. The patient did require transfusion of blood products after his hemoglobin fell to 7.2 g/dL. Posttransfusion, hemoglobin has been stable. Okay to attempt to resume heparin at this time. Continue PPI therapy twice daily. 6. History of prosthetic mitral valve/hypertension/hyperlipidemia Complicates care, management, recovery and prognosis. Continue home medications as indicated. TIME: 34 minutes of critical care time, independent of procedures, was spent addressing the patient's acute combined respiratory failure, V. fib cardiac arrest, acute kidney injury, acute liver injury, acute alcohol withdrawal, anemia, review of all data and collaboration with the care team. Subjective Subjective The patient was seen and examined at the bedside this morning. Events from the last 24 hours have been reviewed. Today is vent day #5. The patient continues to have fevers with a T-max overnight of 103.1 ?F. The patient is otherwise hemodynamically stable at the present time. The patient remains on assist control mode of mechanical ventilation with an FiO2 requirement of 35% and PEEP of 5. The patient did become agitated overnight and propofol was once again restarted. Therefore, the patient is now on a combination of Precedex, fentanyl and propofol for sedation. His heparin drip remains off. He was transfused 2 units of packed red blood cells yesterday. Hemoglobin is improved this morning at 10.0 g/dL. Platelet count is low at 74,000. Creatinine has normalized. Transaminases continue to improve. The patient is currently documented to be overall net +3.2 L for the hospitalization. He remains on cefepime and vancomycin. Objective Data Objective Data The patient's most recent lab work, culture data and imaging studies have all been personally reviewed. Surface echocardiogram demonstrated normal LV size with moderate global LV systolic dysfunction and ejection fraction of 35%. Rapid coronavirus antigen testing was negative. Vital Signs: Vital Signs Temp Pulse Resp BP Pulse Ox 102.1 F H 90 14 84/59 L 95 03/11/21 06:00 03/11/21 06:00 03/11/21 06:00 03/11/21 06:00 03/11/21 06:00 Oxygen Delivery Method Mechanical Ventilator Weight: 60.8 kg Body Mass Index (BMI) 23.6 Intake & Output: Intake and Output for Last 24 Hours 03/09/21 03/10/21 03/11/21 23:59 23:59 23:59 Intake Total 2067.74 / 2115.44 2176.32 / 2231.99 1036.99 / 1036.99 Output Total 1610 / 1735 1425 / 1425 250 / 250 Balance 457.74 / 380.44 751.32 / 806.99 786.99 / 786.99 Lab / Micro Data Attestation: I reviewed the patient's lab results. Result Diagrams: 03/11/21 04:05 03/11/21 04:05 Labs: Laboratory Results - last 24 hr 03/10/21 03:25: Diff Path Review Reviewed 03/10/21 06:35: Blood Type O POSITIVE, Antibody Screen NEGATIVE, Crossmatch See Detail 03/10/21 20:30: Hgb 9.6 L, Hct 29.5 L 03/11/21 04:05: WBC 4.3 L, RBC 3.39 L, Hgb 10.0 L, Hct 31.0 L, MCV 91.4, MCH 29.5, MCHC 32.3, RDW Std Deviation 56.9 H, RDW Coeff of Harjeet 17.0 H, Plt Count 74 L, MPV 11.7, Immature Gran % (Auto) 0.900, Neut % (Auto) 71.4 H, Lymph % (Auto) 14.1 L, [place] % (Auto) 10.6 H, Eos % (Auto) 2.1, Baso % (Auto) 0.9, Absolute Neuts (auto) 3.1, Absolute Lymphs (auto) 0.61 L, Nucleated RBC % 2.8 03/11/21 04:05: Sodium 144, Potassium 3.7, Chloride 115 H, Carbon Dioxide 22.0, Anion Gap 7, BUN 25 H, Creatinine 1.04, Estim Creat Clear Calc 58.51, Est GFR (MDRD) Af Amer 93, Est GFR (MDRD) Non-Af 77, BUN/Creatinine Ratio 24.0 H, Glucose 123 H, Calcium 7.5 L, Total Bilirubin 1.50 H, Direct Bilirubin 0.80 H, AST 733 H, ALT 945 H, Alkaline Phosphatase 72, Total Protein 6.0 L, Albumin 1.8 L, Globulin 4.2 03/11/21 04:05: APTT 30.6 Micro: Microbiology 03/09/21 07:50 Urine Catheter - Catheter Urine Culture - Final Culture exhibits no growth. 03/09/21 07:53 Blood Culture (Wb) - Anticubital Right Blood Culture - Preliminary 03/07/21 23:00 Sputum, Induced/Lukens Gram Stain - Final 03/07/21 23:00 Sputum, Induced/Lukens Respiratory Culture - Final Mixed normal respiratory héctor. No Streptococcus pneumoniae, beta-hemolytic Streptococcus or Staphylococcus aureus isolated. 03/07/21 06:08 Nasal Secretion SARS-CoV-2 Antigen (Rapid) - Final Physical Exam Const General Appearance: intubated and patient mechanically ventilated HEENT normocephalic and head/scalp atraumatic Mouth: endotracheal tube in place and OG tube in place Eyes PERRL Neck supple General: trachea midline Chest inspection of chest normal Resp normal respiratory effort Auscultation: Negative for rales, rhonchi or wheezes Cardio regular rate and regular rhythm GI normal to inspection, nondistended, normoactive bowel sounds Extremity no clubbing, cyanosis or edema Skin no rashes or lesions noted Neuro Sensorium / Orientation: sedated on vent Charges/Coding Procedures Hospitalists Procedures: 06286 Critial Care 1st Hr
--- NOTE | 2021-03-11 07:33 | PN.HOSP_ITS ---
Subjective Subjective Patient remains sedated on the vent. Patient is spiking fever with T-max over the past 24 hours been 103.1. Blood culture sent, blood cultures sent on 03/09/2021 came back positive for coagulase negative staph. With patient having an underlying mechanical valve his antibiotic therapy was broadened and consult placed to ID. His heparin was resumed after patient was transfused. Objective Data Objective Data Vital Signs: Vital Signs Temp Pulse Resp BP Pulse Ox 102.1 F H 88 16 89/63 L 95 03/11/21 07:00 03/11/21 07:16 03/11/21 07:16 03/11/21 07:00 03/11/21 07:16 Oxygen Delivery Method Mechanical Ventilator Weight: 60.8 kg Body Mass Index (BMI) 23.6 Intake & Output: Intake and Output for Last 24 Hours 03/09/21 03/10/21 03/11/21 23:59 23:59 23:59 Intake Total 2067.74 / 2115.44 2176.32 / 2231.99 1300.57 / 1300.57 Output Total 1610 / 1735 1425 / 1425 250 / 250 Balance 457.74 / 380.44 751.32 / 806.99 1050.57 / 1050.57 Lab / Micro Data Result Diagrams: 03/11/21 04:05 03/11/21 04:05 Labs: Laboratory Results - last 24 hr 03/10/21 03:25: Diff Path Review Reviewed 03/10/21 06:35: Blood Type O POSITIVE, Antibody Screen NEGATIVE, Crossmatch See Detail 03/10/21 20:30: Hgb 9.6 L, Hct 29.5 L 03/11/21 04:05: WBC 4.3 L, RBC 3.39 L, Hgb 10.0 L, Hct 31.0 L, MCV 91.4, MCH 29.5, MCHC 32.3, RDW Std Deviation 56.9 H, RDW Coeff of Harjeet 17.0 H, Plt Count 74 L, MPV 11.7, Immature Gran % (Auto) 0.900, Neut % (Auto) 71.4 H, Lymph % (Auto) 14.1 L, [place] % (Auto) 10.6 H, Eos % (Auto) 2.1, Baso % (Auto) 0.9, Absolute Neuts (auto) 3.1, Absolute Lymphs (auto) 0.61 L, Nucleated RBC % 2.8 03/11/21 04:05: Sodium 144, Potassium 3.7, Chloride 115 H, Carbon Dioxide 22.0, Anion Gap 7, BUN 25 H, Creatinine 1.04, Estim Creat Clear Calc 58.51, Est GFR (MDRD) Af Amer 93, Est GFR (MDRD) Non-Af 77, BUN/Creatinine Ratio 24.0 H, Glucose 123 H, Calcium 7.5 L, Total Bilirubin 1.50 H, Direct Bilirubin 0.80 H, AST 733 H, ALT 945 H, Alkaline Phosphatase 72, Total Protein 6.0 L, Albumin 1.8 L, Globulin 4.2 03/11/21 04:05: APTT 30.6 Micro: Microbiology 03/09/21 07:50 Urine Catheter - Catheter Urine Culture - Final Culture exhibits no growth. 03/09/21 07:53 Blood Culture (Wb) - Anticubital Right Blood Culture - Preliminary 03/07/21 23:00 Sputum, Induced/Lukens Gram Stain - Final 03/07/21 23:00 Sputum, Induced/Lukens Respiratory Culture - Final Mixed normal respiratory héctor. No Streptococcus pneumoniae, beta-hemolytic Streptococcus or Staphylococcus aureus isolated. 03/07/21 06:08 Nasal Secretion SARS-CoV-2 Antigen (Rapid) - Final Physical Exam Narrative GENERAL: Awake on the vent HEENT: Atraumatic; EYES; Anicteric, Normal Conjunctiva NECK; supple, normal thyroid, RESPIRATORY: Diminished to auscultation CARDIOVASCULAR: Regular S1 S2, GI: soft, normoactive bowel sounds, : No Renal angle tenderness; EXTREMITIES: No edema, no clubbing, MUSCULOSKELETAL: no muscle waisting NEURO: Awake on the vent, does not follow commands Assessment & Plan Assessment/Plan (1) Tobacco abuse: (2) Alcohol abuse: (3) History of prosthetic mitral valve: (4) Noncompliance with medications: PLAN: Patient is a 61-year-old admitted with acute alcohol withdrawal with desire for detoxification. Patient was apparently found in the emergency department with face down. He was found unresponsive was found to be in V. fib. CODE BLUE was called patient was successfully resuscitated with ACLS with ROSC SC. Intubated and admitted to the intensive care unit 1. Cardiopulmonary arrest ?Secondary to ventricular fibrillation. Patient was successfully resuscitated using ACLS protocol. Cardiology consulted 2. Acute hypoxic respiratory failure ?Secondary to above patient was intubated following ROSC admitted to the intensive care unit placed on the vent consult placed to pulmonary/intensive care for vent management ?03/09/2021; patient is awake on the vent however does not follow any purposeful commands 03/10/2021. Patient remains on the vent currently sedated ?03/11/2021; patient remains sedated on the vent 3. Fever ?Cultures so far positive for coagulase staph negative.. Repeat blood culture sent in view of patient continued to spike fever. Currently on cefepime and vancomycin. Consult placed to ID 4. Valvular heart disease ?With history of mitral valve prosthesis. Patient is on systemic anticoagulation with Coumadin INR was subtherapeutic started on heparin ?03/11/2021. Heparin has been held the day prior in view of significant drop in his hemoglobin level resumed starting today 5. 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 Paroxysmal A. fib ?Rate controlled 7. Chronic alcohol dependence ?Plan was for patient to have undergone detoxification however he coded prior to initiation of the program 8. Chronic heart failure with reduced ejection fraction ?Echo obtained on 08/11/2020 demonstrated EF of 60% -Echo repeated during this hospital stay demonstrated EF of 35% consistent with heart failure with reduced ejection fraction 9. Anemia - Secondary to chronic disorder monitoring H&H and transfuse if patient becomes symptomatic or hemoglobin falls below 7 ?03/10/2021; hemoglobin down to 7.2 -03/11/2021; patient was transfused with 2 unit PRBC on 03/10/2021 10. Acute transaminitis ?Secondary to shock liver from patient cardiopulmonary arrest monitoring with daily LFTs 11. Essential hypertension ?Per history 12. Tobacco dependence 13. DVT prophylaxis ?On systemic anticoagulation with heparin Charges/Coding Visit Charges Inpatient E&M: 81659 Subs Hosp L3
--- NOTE | 2021-03-11 09:05 | PN.CARD_ITS ---
Subjective Subjective The patient remains in the ICU mechanically intubated, ventilated, and sedated. Objective Data Vital Signs: Vital Signs Temp Pulse Resp BP Pulse Ox 102.1 F H 88 16 89/63 L 95 03/11/21 07:00 03/11/21 07:16 03/11/21 07:16 03/11/21 07:00 03/11/21 07:16 Oxygen Delivery Method Mechanical Ventilator Weight: 134 lb 0.657 oz Body Mass Index (BMI) 23.6 Intake & Output: Intake and Output for Last 24 Hours 03/09/21 03/10/21 03/11/21 23:59 23:59 23:59 Intake Total 2067.74 / 2115.44 2176.32 / 2231.99 1300.57 / 1300.57 Output Total 1610 / 1735 1425 / 1425 250 / 250 Balance 457.74 / 380.44 751.32 / 806.99 1050.57 / 1050.57 Lab / Micro Data Result Diagrams: 03/11/21 04:05 03/11/21 04:05 Labs: Laboratory Results - last 24 hr 03/10/21 03:25: Diff Path Review Reviewed 03/10/21 06:35: Blood Type O POSITIVE, Antibody Screen NEGATIVE, Crossmatch See Detail 03/10/21 20:30: Hgb 9.6 L, Hct 29.5 L 03/11/21 04:05: WBC 4.3 L, RBC 3.39 L, Hgb 10.0 L, Hct 31.0 L, MCV 91.4, MCH 29.5, MCHC 32.3, RDW Std Deviation 56.9 H, RDW Coeff of Harjeet 17.0 H, Plt Count 74 L, MPV 11.7, Immature Gran % (Auto) 0.900, Neut % (Auto) 71.4 H, Lymph % (Auto) 14.1 L, [place] % (Auto) 10.6 H, Eos % (Auto) 2.1, Baso % (Auto) 0.9, Absolute Neuts (auto) 3.1, Absolute Lymphs (auto) 0.61 L, Nucleated RBC % 2.8 03/11/21 04:05: Sodium 144, Potassium 3.7, Chloride 115 H, Carbon Dioxide 22.0, Anion Gap 7, BUN 25 H, Creatinine 1.04, Estim Creat Clear Calc 58.51, Est GFR (MDRD) Af Amer 93, Est GFR (MDRD) Non-Af 77, BUN/Creatinine Ratio 24.0 H, Glucose 123 H, Calcium 7.5 L, Total Bilirubin 1.50 H, Direct Bilirubin 0.80 H, AST 733 H, ALT 945 H, Alkaline Phosphatase 72, Total Protein 6.0 L, Albumin 1.8 L, Globulin 4.2 03/11/21 04:05: APTT 30.6 Micro: Microbiology 03/09/21 07:53 Blood Culture (Wb) - Anticubital Right Blood Culture - Preliminary Coag Negative Staph 03/09/21 07:50 Urine Catheter - Catheter Urine Culture - Final Culture exhibits no growth. 03/07/21 23:00 Sputum, Induced/Lukens Gram Stain - Final 03/07/21 23:00 Sputum, Induced/Lukens Respiratory Culture - Final Mixed normal respiratory héctor. No Streptococcus pneumoniae, beta-hemolytic Streptococcus or Staphylococcus aureus isolated. Cardiology Labs/Tests 03/10/21 20:30: Hgb 9.6 L, Hct 29.5 L 03/11/21 04:05: WBC 4.3 L, RBC 3.39 L, Hgb 10.0 L, Hct 31.0 L, MCV 91.4, MCH 29.5, MCHC 32.3, Plt Count 74 L, MPV 11.7, Immature Gran % (Auto) 0.900, Neut % (Auto) 71.4 H, Lymph % (Auto) 14.1 L, [place] % (Auto) 10.6 H, Eos % (Auto) 2.1, Baso % (Auto) 0.9, Absolute Neuts (auto) 3.1, Nucleated RBC % 2.8 03/11/21 04:05: Sodium 144, Potassium 3.7, Chloride 115 H, Carbon Dioxide 22.0, Anion Gap 7, BUN 25 H, Creatinine 1.04, Est GFR (MDRD) Af Amer 93, Est GFR (MDRD) Non-Af 77, BUN/Creatinine Ratio 24.0 H, Glucose 123 H, Calcium 7.5 L, Total Bilirubin 1.50 H, Direct Bilirubin 0.80 H 03/11/21 04:05: APTT 30.6 Rhythm: Electronic ventricular paced rhythm Physical Exam HEENT normocephalic and head/scalp atraumatic Neck no JVD Resp clear to auscultation bilaterally Cardio regular rate, regular rhythm, S1 normal heart sound and S2 normal heart sound GI normal to inspection, nondistended, normoactive bowel sounds Extremity no pedal edema Assessment & Plan Assessment/Plan (1) History of prosthetic mitral valve: PLAN: The history of mechanical mitral valve prosthesis. He does need to continue AHA antibiotic prophylaxis as well as anticoagulant therapy. His mitral valve has been reassessed by transthoracic echocardiogram and appears to be stable at this time. (2) Presence of permanent cardiac pacemaker: PLAN: The patient also has an underlying permanent pacemaker. This has been followed as an outpatient. It has been interrogated and has been reported as functioning appropriately. (3) Hyperlipidemia: QUALIFIERS: Hyperlipidemia type: unspecified Qualified Code(s): E78.5 - Hyperlipidemia, unspecified PLAN: The patient should continue risk factor evaluation care as deemed appropriate. (4) Essential hypertension: PLAN: The patient's blood pressure will need to be followed with his medicines adjusted accordingly. 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 At the moment the patient's hemoglobin level declined. His IV heparin was placed on temporary hold. His case was discussed with Dr. Nava and Dr. Roberts as his anticoagulation status cannot be on indefinite hold secondary to his mechanical mitral valve prosthesis. At the present time Dr. Roberts states that he is going to reinitiate his IV he amada. If the patient's hemoglobin continues to decline then he may need further gastrointestinal evaluation, etc. (6) Cardiac arrest: PLAN: The patient is reported to presenting to the hospital for nonvascular conditions and then being found in the emergency department on the floor in cardiopulmonary arrest with ventricular fibrillation requiring ACLS p rotocol/defibrillation x2 and subsequent mechanical intubation/ventilation and placement in the ICU. At the present time it is unclear as to the patient's underlying neurologic status as the patient is requiring sedation based upon concerns of alcohol withdrawal, etc. The patient's neurologic status will help guide further cardiovascular noncardiovascular evaluation and care of the patient. (7) Cardiomyopathy: PLAN: The patient's LV systolic function is diminished. This may be secondary to his cardiopulmonary arrest. Is unclear whether this is hypoxic driven versus being related to underlying CAD, etc. At the moment he will continue medical therapy and support as best as possible. However, medications such as beta-blockers, afterload reducing agents, etc. do not appear to be appropriate at this time secondary to his hypotension. Ideally over time, depending upon his neurologic response, etc., it may be reasonable to consider him for further evaluation in the cardiac catheterization laboratory. (8) Renal insufficiency: PLAN: The patient's creatinine level did increase. It has been noted to subsequently decrease. Again this may be related to his cardiopulmonary arrest event. This does play a role in whether the patient will be able to be evaluated in the cardiac catheterization laboratory at some point in time based upon the concerns of IV contrast related nephropathy. (9) Hypotension: PLAN: The patient is hypotensive. He may need additional IV vasopressor support depending upon his overall clinical status and future plans. (10) Fever: PLAN: The patient also remains febrile with temperatures of approximately 102. It is unclear whether this is related to his cardiopulmonary arrest event and a neurologic event versus an underlying infectious disease related issue. He will continue evaluation care per internal medicine and critical care medicine/pulmonology. Addt'l Comments Overall, based upon the patient's ongoing clinical course superimposed upon his multiple comorbidities his overall prognosis appears to be poor at this time. This note was generated using a voice recognition system and there may be incorrect words, spelling or punctuation that were not noted when reviewing the office note prior to saving.
[2021-03-11] MEDS: Chlorhexidine 15 ML PO ×2 (10:42→21:09)
[2021-03-11] MEDS: QUEtiapine 100 MG Tablet GT ×2 (10:49→21:09)
[2021-03-11] MEDS: 0.9% Saline Lock 10 ML Syringe IV (11:35)
[2021-03-11] MEDS: Propofol 10MG/Ml 1,000 MG/100 ML Bottle 3.5 MG CONT INF (15:15)
[2021-03-11] MEDS: Dexmedetomidine 1,000 mcg in 0.9% NS 240 mL 20.5 MCG CONT INF (16:04)
[2021-03-11] MEDS: Vital High Protein 1,000 ML 20 ML GT ×2 (19:27→19:47)
[2021-03-11] MEDS: Heparin Injection (Vial) 5,000 UNIT/ML VIAL IV (21:30)
[2021-03-12] VITALS (35 sets, daily range): BP systolic 84–174; BP diastolic 60–114; PULSE 85–178; RESP 14–89; TEMP 35–38.7; O2SAT 25–97
[2021-03-12] MEDS: Propofol 10MG/Ml 1,000 MG/100 ML Bottle 5.3 MG CONT INF (02:22)
[2021-03-12 03:45] LABS: Basophil# 0.06 X10^3/uL; Eosinophil# 0.21 X10^3/uL; Hematocrit 29.2 % (40-54); Mean Corp Hgb Conc 30.8 g/dL (32-36); Mean Corpuscular Hgb 28.5 pg (27.0-32.0); Mean Corpuscular Volume 92.4 fL (80-94); Mean Platelet Vol. 11.4 fl (6.2-12.0); Monocyte# 0.81 X10^3/uL; POSITIVE COUNT YES; POSITIVE DIFFERENTIAL YES; POSITIVE MORPHOLOGY YES; Platelet Count 86 K/mm3 (150-450); RBC Distribution Width SD 57.8 fl (35.1-43.9); Red Blood Count 3.16 M/mm3 (4.6-6.2); White Blood Count 4.4 K/mm3 (4.4-11.0)
[2021-03-12 03:53] LABS: Partial Thromboplast Time 45.1 Seconds (24.1-36.2)
[2021-03-12 03:57] LABS: Differential Indicated SCAN CRITERIA MET
[2021-03-12 03:58] LABS: Anion Gap 5 (5-15); BUN 21 mg/dL (7-18); BUN/Creat Ratio 23.8 RATIO (10-20); Calcium,Total 7.9 mg/dL (8.5-10.1); Chloride 116 mmol/L (98-107); Creatinine, Serum 0.88 mg/dL (0.70-1.30); EST Glomerular Filtration Rate 93 mL/min (>60); Est Glom Filt Rate - Afr Amer 112 mL/min (>60); Estimated Creatinine Clearance 69.15 ml/min; Glucose 101 mg/dL (74-106); Potassium 3.6 mmol/L (3.5-5.1); Sodium Level 146 mmol/L (136-145)
[2021-03-12] MEDS: Heparin Injection (Vial) 5,000 UNIT/ML VIAL IV ×2 (04:09→13:12)
[2021-03-12] MEDS: TITRATION PARAMETER CHANGE 1 EACH IV (04:26)
[2021-03-12 04:27] LABS: Scan Smear per Review Criteria MANUAL DIFF
[2021-03-12 04:36] LABS: Eosinophil 5 % (0-5); Lymphocyte 17 % (19-41); Metamyelocyte 4 % (0-1); Monocyte 12 % (0-10); Neutrophil-Band 13 % (0-5); Neutrophil-Segmented 49 % (47-70); Nucleated Red Bld Cells,Manual 1 % (0-5); Total Cells Counted 100 (MANUAL DIFF)
[2021-03-12 04:37] LABS: Absolute Neutrophil Count 29.9 X10^3/uL (2.0-7.7); Neutrophil # 2.92 X10^3/uL (2.7-7.7)
[2021-03-12 04:38] LABS: Absolute Lymphocyte Count 0.75 X10^3/uL (0.83-4.51); Lymphocyte # 0.75 X10^3/ul (0.83-4.51)
[2021-03-12 04:39] LABS: Platelet Estimate MOD DEC (ADEQ)
[2021-03-12 04:40] LABS: Polychromasia 1+; Red Cell Morphology N CYTIC NORMAL (NORM C&C)
[2021-03-12] MEDS: Dexmedetomidine 1,000 mcg in 0.9% NS 240 mL 21.7 MCG CONT INF ×2 (05:06→15:42)
[2021-03-12 06:48] LABS: Vancomycin, Trough Level 8.3 ug/mL (5.0-15.0)
[2021-03-12] MEDS: Vancomycin IV 500 MG/100 ML BAG 100 MG IV (06:52)
--- NOTE | 2021-03-12 06:56 | PCM.PN.INT ---
Assessment & Plan Assessment/Plan (1) Acute respiratory failure: PLAN: RECOMMENDATIONS: 1. Continue assist control mode of mechanical ventilation. Wean FiO2/PEEP for saturations greater than 90%. 2. Attempt to limit sedative medications. Increase Seroquel dose today as well. 3. Continue antimicrobials. 4. Continue trophic tube feeds. 5. Continue to monitor H&H daily and transfuse if hemoglobin drops below 7 g/dL. 6. Continue heparin infusion as tolerated. 7. Continue PPI therapy twice daily. IMPRESSIONS: 1. Acute hypoxemic and hypercarbic respiratory failure status post V. fib cardiac arrest The patient was initially admitted for acute alcohol detoxification and was found unresponsive in V. fib arrest. The patient did receive ACLS with eventual return of spontaneous circulation. He was intubated as a consequence of the aforementioned. The patient will remain on assist control mode of mechanical ventilation. FiO2 and PEEP will be weaned as tolerated. In light of the fact that the patient developed fevers, empiric antimicrobials were initiated. Continue trophic tube feeds for now. Echocardiogram did reveal a depressed ejection fraction at 35%. The patient will likely require additional cardiac work-up. 2. Acute kidney injury Improving. Likely prerenal in etiology/ischemic ATN in the setting of cardiac arrest. Anticipate improvement with stabilization of hemodynamics. Continue to monitor urine output for now. Avoid nephrotoxic medications. No current indication for renal replacement therapy. 3. Acute liver injury Improving. Likely secondary to cardiac arrest and hemodynamic instability leading to hypoperfusion. Anticipate improvement with stabilization of hemodynamics. 4. Acute alcohol withdrawal Continue current sedation regimen including propofol, fentanyl and Precedex. The patient's agitation continues to be a barrier to successful extubation. Plan to increase Seroquel dosing today. 5. Anemia There is some concern for coffee-ground output from the patient's OG tube. The patient did require transfusion of blood products after his hemoglobin fell to 7.2 g/dL. Posttransfusion, hemoglobin has been stable. Okay to continue heparin at this time. Continue PPI therapy twice daily. 6. History of prosthetic mitral valve/hypertension/hyperlipidemia Complicates care, management, recovery and prognosis. Continue home medications as indicated. TIME: 32 minutes of critical care time, independent of procedures, was spent addressing the patient's acute combined respiratory failure, V. fib cardiac arrest, acute kidney injury, acute liver injury, acute alcohol withdrawal, anemia, review of all data and collaboration with the care team. Subjective Subjective The patient was seen and examined at the bedside this morning. Events from the last 24 hours have been reviewed. Today is vent day #6. The patient currently has a low-grade fever but remains otherwise hemodynamically stable. The patient remains on assist control mode of mechanical ventilation with an FiO2 requirement of 35% and PEEP of 5. Endotracheal secretions were noted by the overnight nursing staff. The patient remains on scheduled Seroquel along with a combination of fentanyl, Precedex and propofol. His heparin drip was restarted yesterday. He is currently tolerating tube feeds. The patient is documented to be overall net +4.7 L for the hospitalization. Hemoglobin is currently stable at 9.0 g/dL. Platelet count remains low at 86,000. Sodium and chloride are elevated at 146 and 116, respectively. Renal function is stable. He remains on cefepime and vancomycin. Objective Data Objective Data The patient's most recent lab work, culture data and imaging studies have all been personally reviewed. Surface echocardiogram demonstrated normal LV size with moderate global LV systolic dysfunction and ejection fraction of 35%. Rapid coronavirus antigen testing was negative. Vital Signs: Vital Signs Temp Pulse Resp BP Pulse Ox 100 F H 94 20 H 96/65 93 03/12/21 06:00 03/12/21 06:00 03/12/21 06:00 03/12/21 06:00 03/12/21 06:00 Oxygen Delivery Method Mechanical Ventilator Weight: 61.9 kg Body Mass Index (BMI) 23.6 Intake & Output: Intake and Output for Last 24 Hours 03/10/21 03/11/21 03/12/21 23:59 23:59 23:59 Intake Total 2176.32 / 2231.99 3011.14 / 3086.94 620.57 / 620.57 Output Total 1425 / 1425 1000 / 1000 350 / 350 Balance 751.32 / 806.99 2011.14 / 2086.94 270.57 / 270.57 Lab / Micro Data Attestation: I reviewed the patient's lab results. Result Diagrams: 03/12/21 03:35 03/12/21 03:35 Labs: Laboratory Results - last 24 hr 03/11/21 21:00: APTT 39.0 H 03/12/21 03:35: APTT 45.1 H 03/12/21 03:35: WBC 4.4, RBC 3.16 L, Hgb 9.0 L, Hct 29.2 L, MCV 92.4, MCH 28.5, MCHC 30.8 L, RDW Std Deviation 57.8 H, RDW Coeff of Harjeet 17.0 H, Plt Count 86 L, MPV 11.4, Immature Gran % (Auto) CONSTRUCTION CODE ADMINISTRATOR, Neut % (Auto) CONSTRUCTION CODE ADMINISTRATOR, Lymph % (Auto) CONSTRUCTION CODE ADMINISTRATOR, [place] % (Auto) CONSTRUCTION CODE ADMINISTRATOR, Eos % (Auto) CONSTRUCTION CODE ADMINISTRATOR, Baso % (Auto) CONSTRUCTION CODE ADMINISTRATOR, Absolute Neuts (auto) 29.9 H, Absolute Lymphs (auto) 0.75 L, Total Counted 100, Neutrophils % (Manual) 49, Band Neutrophils % 13 H, Lymphocytes % (Manual) 17 L, Monocytes % (Manual) 12 H, Eosinophils % (Manual) 5, Metamyelocytes % 4 H, Nucleated RBC % 2.0, Nucleated RBCs/100 WBC 1, Diff Path Review July, Platelet Estimate MOD DEC, RBC Morphology N CYTIC, Polychromasia 1+ 03/12/21 03:35: Sodium 146 H, Potassium 3.6, Chloride 116 H, Carbon Dioxide 25.0, Anion Gap 5, BUN 21 H, Creatinine 0.88, Estim Creat Clear Calc 69.15, Est GFR (MDRD) Af Amer 112, Est GFR (MDRD) Non-Af 93, BUN/Creatinine Ratio 23.8 H, Glucose 101, Calcium 7.9 L 03/12/21 06:00: Vancomycin Trough 8.3 Micro: Microbiology 03/09/21 07:53 Blood Culture (Wb) - Anticubital Right Blood Culture - Preliminary Coag Negative Staph 03/09/21 07:50 Urine Catheter - Catheter Urine Culture - Final Culture exhibits no growth. 03/07/21 23:00 Sputum, Induced/Lukens Gram Stain - Final 03/07/21 23:00 Sputum, Induced/Lukens Respiratory Culture - Final Mixed normal respiratory héctor. No Streptococcus pneumoniae, beta-hemolytic Streptococcus or Staphylococcus aureus isolated. 03/07/21 06:08 Nasal Secretion SARS-CoV-2 Antigen (Rapid) - Final Physical Exam Const General Appearance: intubated and patient mechanically ventilated HEENT normocephalic and head/scalp atraumatic Mouth: endotracheal tube in place and OG tube in place Eyes PERRL Neck supple General: trachea midline Chest inspection of chest normal Resp normal respiratory effort Effort and Inspection: tachypneic Auscultation: Negative for rales, rhonchi or wheezes Cardio S1 normal heart sound and S2 normal heart sound Rate: tachycardic GI normal to inspection, nondistended, normoactive bowel sounds Extremity no clubbing, cyanosis or edema Skin no rashes or lesions noted Neuro Sensorium / Orientation: sedated on vent Charges/Coding Procedures Hospitalists Procedures: 80080 Critial Care 1st Hr
--- NOTE | 2021-03-12 07:17 | PCM.RX.CS ---
Consult Pharmacy has been consulted to manage selected antiobiotic: Vancomycin Type of Consult: Follow-up Prior Doses of Antibiotics Received/Current Regimen: current dose is 500mg q12h Labs: Sodium 146 mmol/L (136-145) H 03/12/21 03:35 Potassium 3.6 mmol/L (3.5-5.1) 03/12/21 03:35 Chloride 116 mmol/L (98-107) H 03/12/21 03:35 Carbon Dioxide 25.0 mmol/L (21.0-32.0) 03/12/21 03:35 Anion Gap 5 (5-15) 03/12/21 03:35 BUN 21 mg/dL (7-18) H 03/12/21 03:35 Creatinine 0.88 mg/dL (0.70-1.30) 03/12/21 03:35 Est GFR (MDRD) Af Amer 112 mL/min (>60) 03/12/21 03:35 Est GFR (MDRD) Non-Af 93 mL/min (>60) 03/12/21 03:35 BUN/Creatinine Ratio 23.8 RATIO (10-20) H 03/12/21 03:35 Glucose 101 mg/dL (74-106) 03/12/21 03:35 Vancomycin Trough 8.3 ug/mL (5.0-15.0) 03/12/21 06:00 Random Vancomycin 10.3 ug/mL (0.0-15.0) 03/10/21 03:25 Microbiology: Microbiology 03/09/21 07:53 Blood Culture (Wb) - Anticubital Right Blood Culture - Preliminary Coag Negative Staph 03/09/21 07:50 Urine Catheter - Catheter Urine Culture - Final Culture exhibits no growth. 03/07/21 23:00 Sputum, Induced/Lukens Gram Stain - Final 03/07/21 23:00 Sputum, Induced/Lukens Respiratory Culture - Final Mixed normal respiratory héctor. No Streptococcus pneumoniae, beta-hemolytic Streptococcus or Staphylococcus aureus isolated. 03/07/21 06:08 Nasal Secretion SARS-CoV-2 Antigen (Rapid) - Final Weight used for dosin.9 kg Estimated Creatinine Clearance: 69ml/min Goal Trough: 15-20 mcg/mL Pharmacy Plan for Drug Dosing: The vanc trough drawn at 06:00 today (10.5 hrs after the previous dose) was 8.3. This is below goal range so will increase next dose to 1000mg q12h. Will start earlier at 15:00 today since this morning's dose of 500mg was already hung. Recheck a trough before the 4th new dose. Pharmacy Service will continue to monitor and adjust dosing as required. Follow-Up Labs: Trough Vancomycin Labs to be done on [date and time ordered]: 03/14/21 02:30
--- NOTE | 2021-03-12 07:29 | PN.HOSP_ITS ---
Subjective Subjective Patient remains sedated on the vent. Still continues to spike fevers. Temperature maximum over the past 24 hours 101.5. Repeat blood cultures sent. Consult was placed to ID the day prior. Objective Data Objective Data Vital Signs: Vital Signs Temp Pulse Resp BP Pulse Ox 100.1 F H 92 20 H 134/85 H 95 03/12/21 07:00 03/12/21 07:00 03/12/21 07:00 03/12/21 07:00 03/12/21 07:00 Oxygen Delivery Method Mechanical Ventilator Weight: 61.9 kg Body Mass Index (BMI) 23.6 Intake & Output: Intake and Output for Last 24 Hours 03/10/21 03/11/21 03/12/21 23:59 23:59 23:59 Intake Total 2176.32 / 2231.99 3011.14 / 3086.94 667.87 / 667.87 Output Total 1425 / 1425 1000 / 1000 350 / 350 Balance 751.32 / 806.99 2010.14 / 2086.94 317.87 / 317.87 Lab / Micro Data Result Diagrams: 03/12/21 03:35 03/12/21 03:35 Labs: Laboratory Results - last 24 hr 03/11/21 21:00: APTT 39.0 H 03/12/21 03:35: APTT 45.1 H 03/12/21 03:35: WBC 4.4, RBC 3.16 L, Hgb 9.0 L, Hct 29.2 L, MCV 92.4, MCH 28.5, MCHC 30.8 L, RDW Std Deviation 57.8 H, RDW Coeff of Harjeet 17.0 H, Plt Count 86 L, MPV 11.4, Immature Gran % (Auto) PASSENGER SERVICE MANAGER, Neut % (Auto) PASSENGER SERVICE MANAGER, Lymph % (Auto) PASSENGER SERVICE MANAGER, [place] % (Auto) PASSENGER SERVICE MANAGER, Eos % (Auto) PASSENGER SERVICE MANAGER, Baso % (Auto) PASSENGER SERVICE MANAGER, Absolute Neuts (auto) 29.9 H, Absolute Lymphs (auto) 0.75 L, Total Counted 100, Neutrophils % (Manual) 49, Band Neutrophils % 13 H, Lymphocytes % (Manual) 17 L, Monocytes % (Manual) 12 H, Eosinophils % (Manual) 5, Metamyelocytes % 4 H, Nucleated RBC % 2.0, Nucleated RBCs/100 WBC 1, Diff Path Review May foll, Platelet Estimate MOD DEC, RBC Morphology N CYTIC, Polychromasia 1+ 03/12/21 03:35: Sodium 146 H, Potassium 3.6, Chloride 116 H, Carbon Dioxide 25.0, Anion Gap 5, BUN 21 H, Creatinine 0.88, Estim Creat Clear Calc 69.15, Est GFR (MDRD) Af Amer 112, Est GFR (MDRD) Non-Af 93, BUN/Creatinine Ratio 23.8 H, Glucose 101, Calcium 7.9 L 03/12/21 06:00: Vancomycin Trough 8.3 Micro: Microbiology 03/09/21 07:53 Blood Culture (Wb) - Anticubital Right Blood Culture - Preliminary Coag Negative Staph 03/09/21 07:50 Urine Catheter - Catheter Urine Culture - Final Culture exhibits no growth. 03/07/21 23:00 Sputum, Induced/Lukens Gram Stain - Final 03/07/21 23:00 Sputum, Induced/Lukens Respiratory Culture - Final Mixed normal respiratory héctor. No Streptococcus pneumoniae, beta-hemolytic Streptococcus or Staphylococcus aureus isolated. 03/07/21 06:08 Nasal Secretion SARS-CoV-2 Antigen (Rapid) - Final Physical Exam Narrative GENERAL: Awake on the vent HEENT: Atraumatic; EYES; Anicteric, Normal Conjunctiva NECK; supple, normal thyroid, RESPIRATORY: Diminished to auscultation CARDIOVASCULAR: Regular S1 S2, GI: soft, normoactive bowel sounds, : No Renal angle tenderness; EXTREMITIES: No edema, no clubbing, MUSCULOSKELETAL: no muscle waisting NEURO: Awake on the vent, does not follow commands Assessment & Plan Assessment/Plan (1) Tobacco abuse: (2) Alcohol abuse: (3) History of prosthetic mitral valve: (4) Noncompliance with medications: PLAN: Patient is a 61-year-old admitted with acute alcohol withdrawal with desire for detoxification. Patient was apparently found in the emergency department with face down. He was found unresponsive was found to be in V. fib. CODE BLUE was called patient was successfully resuscitated with ACLS with ROSC SC. Intubated and admitted to the intensive care unit 1. Cardiopulmonary arrest ?Secondary to ventricular fibrillation. Patient was successfully resuscitated using ACLS protocol. Cardiology consulted 2. Acute hypoxic respiratory failure ?Secondary to above patient was intubated following ROSC admitted to the intensive care unit placed on the vent consult placed to pulmonary/intensive care for vent management ?03/09/2021; patient is awake on the vent however does not follow any purposeful commands 03/10/2021. Patient remains on the vent currently sedated ?03/11/2021; patient remains sedated on the vent -08/10/2020; remains on the vent 3. Fever ?Cultures so far positive for coagulase staph negative.. Repeat blood culture sent in view of patient continued to spike fever. Currently on cefepime and vancomycin. Consult placed to ID -03/12/2021.Patient remains sedated on the vent. Still continues to spike fevers. Temperature maximum over the past 24 hours 101.5. Repeat blood cultures sent. Consult was placed to ID the day p 4. Valvular heart disease ?With history of mitral valve prosthesis. Patient is on systemic anticoagulation with Coumadin INR was subtherapeutic started on heparin ?03/11/2021. Heparin has been held the day prior in view of significant drop in his hemoglobin level resumed starting today 5. 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 Paroxysmal A. fib ?Rate controlled 7. Chronic alcohol dependence ?Plan was for patient to have undergone detoxification however he coded prior to initiation of the program 8. Chronic heart failure with reduced ejection fraction ?Echo obtained on 08/11/2020 demonstrated EF of 60% -Echo repeated during this hospital stay demonstrated EF of 35% consistent with heart failure with reduced ejection fraction 9. Anemia - Secondary to chronic disorder monitoring H&H and transfuse if patient becomes symptomatic or hemoglobin falls below 7 ?03/10/2021; hemoglobin down to 7.2 -03/11/2021; patient was transfused with 2 unit PRBC on 03/10/2021 10. Acute transaminitis ?Secondary to shock liver from patient cardiopulmonary arrest monitoring with daily LFTs 11. Essential hypertension ?Per history 12. Tobacco dependence 13. DVT prophylaxis ?On systemic anticoagulation with heparin Charges/Coding Visit Charges Inpatient E&M: 92765 Subs Hosp L3
--- NOTE | 2021-03-12 07:58 | PN.CARD_ITS ---
Subjective Subjective The patient remains in the ICU mechanically intubated/ventilated and sedated. Objective Data Vital Signs: Vital Signs Temp Pulse Resp BP Pulse Ox 100.1 F H 92 20 H 134/85 H 95 03/12/21 07:00 03/12/21 07:00 03/12/21 07:00 03/12/21 07:00 03/12/21 07:00 Oxygen Delivery Method Mechanical Ventilator Weight: 136 lb 7.458 oz Body Mass Index (BMI) 23.6 Intake & Output: Intake and Output for Last 24 Hours 03/10/21 03/11/21 03/12/21 23:59 23:59 23:59 Intake Total 2176.32 / 2231.99 3011.14 / 3086.94 667.87 / 667.87 Output Total 1425 / 1425 1000 / 1000 350 / 350 Balance 751.32 / 806.99 2010.14 / 2086.94 317.87 / 317.87 Lab / Micro Data Result Diagrams: 03/12/21 03:35 03/12/21 03:35 Labs: Laboratory Results - last 24 hr 03/11/21 21:00: APTT 39.0 H 03/12/21 03:35: APTT 45.1 H 03/12/21 03:35: WBC 4.4, RBC 3.16 L, Hgb 9.0 L, Hct 29.2 L, MCV 92.4, MCH 28.5, MCHC 30.8 L, RDW Std Deviation 57.8 H, RDW Coeff of Harjeet 17.0 H, Plt Count 86 L, MPV 11.4, Immature Gran % (Auto) LAND SURVEY TECHNICIAN, Neut % (Auto) LAND SURVEY TECHNICIAN, Lymph % (Auto) LAND SURVEY TECHNICIAN, [place] % (Auto) LAND SURVEY TECHNICIAN, Eos % (Auto) LAND SURVEY TECHNICIAN, Baso % (Auto) LAND SURVEY TECHNICIAN, Absolute Neuts (auto) 29.9 H, Absolute Lymphs (auto) 0.75 L, Total Counted 100, Neutrophils % (Manual) 49, Band Neutrophils % 13 H, Lymphocytes % (Manual) 17 L, Monocytes % (Manual) 12 H, Eosinophils % (Manual) 5, Metamyelocytes % 4 H, Nucleated RBC % 2.0, Nucleated RBCs/100 WBC 1, Diff Path Review May foll, Platelet Estimate MOD DEC, RBC Morphology N CYTIC, Polychromasia 1+ 03/12/21 03:35: Sodium 146 H, Potassium 3.6, Chloride 116 H, Carbon Dioxide 25.0, Anion Gap 5, BUN 21 H, Creatinine 0.88, Estim Creat Clear Calc 69.15, Est GFR (MDRD) Af Amer 112, Est GFR (MDRD) Non-Af 93, BUN/Creatinine Ratio 23.8 H, Glucose 101, Calcium 7.9 L 03/12/21 06:00: Vancomycin Trough 8.3 Micro: Microbiology 03/09/21 07:53 Blood Culture (Wb) - Anticubital Right Blood Culture - Preliminary Coag Negative Staph 03/09/21 07:50 Urine Catheter - Catheter Urine Culture - Final Culture exhibits no growth. Cardiology Labs/Tests 03/11/21 21:00: APTT 39.0 H 03/12/21 03:35: APTT 45.1 H 03/12/21 03:35: WBC 4.4, RBC 3.16 L, Hgb 9.0 L, Hct 29.2 L, MCV 92.4, MCH 28.5, MCHC 30.8 L, Plt Count 86 L, MPV 11.4, Immature Gran % (Auto) LAND SURVEY TECHNICIAN, Neut % (Auto) LAND SURVEY TECHNICIAN, Lymph % (Auto) LAND SURVEY TECHNICIAN, [place] % (Auto) LAND SURVEY TECHNICIAN, Eos % (Auto) LAND SURVEY TECHNICIAN, Baso % (Auto) LAND SURVEY TECHNICIAN, Absolute Neuts (auto) 29.9 H, Total Counted 100, Neutrophils % (Manual) 49, Band Neutrophils % 13 H, Lymphocytes % (Manual) 17 L, Monocytes % (Manual) 12 H, Eosinophils % (Manual) 5, Metamyelocytes % 4 H, Nucleated RBC % 2.0 03/12/21 03:35: Sodium 146 H, Potassium 3.6, Chloride 116 H, Carbon Dioxide 25.0, Anion Gap 5, BUN 21 H, Creatinine 0.88, Est GFR (MDRD) Af Amer 112, Est GFR (MDRD) Non-Af 93, BUN/Creatinine Ratio 23.8 H, Glucose 101, Calcium 7.9 L Rhythm: Electronic ventricular paced rhythm Physical Exam HEENT normocephalic and head/scalp atraumatic Neck no JVD Resp Auscultation: rhonchi throughout Cardio regular rate, regular rhythm, S1 normal heart sound and S2 normal heart sound GI normal to inspection, nondistended, normoactive bowel sounds Extremity no pedal edema Assessment & Plan Assessment/Plan (1) History of prosthetic mitral valve: PLAN: The history of mechanical mitral valve prosthesis. He does need to continue AHA antibiotic prophylaxis as well as anticoagulant therapy. His mitral valve has been reassessed by transthoracic echocardiogram and appears to be stable at this time. (2) Presence of permanent cardiac pacemaker: PLAN: The patient also has an underlying permanent pacemaker. This has been followed as an outpatient. It has been interrogated and has been reported as functioning appropriately. (3) Hyperlipidemia: QUALIFIERS: Hyperlipidemia type: unspecified Qualified Code(s): E78.5 - Hyperlipidemia, unspecified PLAN: The patient should continue risk factor evaluation care as deemed appropriate. (4) Essential hypertension: PLAN: The patient's blood pressure will need to be followed with his medicines adjusted accordingly. (5) longterm current use of anticoagulant: PLAN: The patient has been on long-term anticoagulant therapy secondary to his underlying mechanical mitral valve prosthesis. The patient has resumed IV heparin. His hemoglobin is reported at 9.0 this day. (6) Cardiac arrest: PLAN: The patient is reported to presenting to the hospital for nonvascular conditions and then being found in the emergency department on the floor in cardiopulmonary arrest with ventricular fibrillation requiring ACLS protocol/defibrillation x2 and subsequent mechanical intubation/ventilation and placement in the ICU. At the present time it is unclear as to the patient's underlying neurologic status as the patient is requiring sedation based upon concerns of alcohol withdrawal, etc. The patient's neurologic status will help guide further cardiovascular noncardiovascular evaluation and care of the patient. (7) Cardiomyopathy: PLAN: The patient's LV systolic function is diminished. This may be secondary to his cardiopulmonary arrest. Is unclear whether this is hypoxic driven versus being related to underlying CAD, etc. At the moment he will continue medical therapy and support as best as possible. However, medications such as beta-blockers, afterload reducing agents, etc. do not appear to be appropriate at this time secondary to his hypotension. Ideally over time, depending upon his neurologic response, etc., it may be reasonable to consider him for further evaluation in the cardiac catheterization laboratory. (8) Renal insufficiency: PLAN: The patient's creatinine level did increase. It has been noted to subsequently decrease. Again this may be related to his cardiopulmonary arrest event. This does play a role in whether the patient will be able to be evaluated in the cardiac catheterization laboratory at some point in time based upon the concerns of IV contrast related nephropathy. (9) Hypotension: PLAN: The patient is hypotensive. This does impact the medications he is able to receive. (10) Fever: PLAN: The patient also remains febrile with temperatures of approximately 100.1. It is unclear whether this is related to his cardiopulmonary arrest event and a neurologic event versus an underlying infectious disease related issue. He continues with IV antibiotics. He will continue evaluation care per internal medicine and critical care medicine/pulmonology. Addt'l Comments As previously noted, it appears his overall prognosis remains poor. This note was generated using a voice recognition system and there may be incorrect words, spelling or punctuation that were not noted when reviewing the office note prior to saving.
[2021-03-12] MEDS: Chlorhexidine 15 ML PO ×2 (08:12→21:23)
[2021-03-12] MEDS: QUEtiapine 100 MG Tablet GT (08:18)
[2021-03-12 11:36] LABS: Partial Thromboplast Time 43.7 Seconds (24.1-36.2)
[2021-03-12] MEDS: Acetaminophen 325 MG Tablet 650 MG PO (12:08)
[2021-03-12] MEDS: Propofol 10MG/Ml 1,000 MG/100 ML Bottle 5.6 MG CONT INF ×2 (12:49→22:04)
[2021-03-12] MEDS: Vancomycin IV 1,000 MG/200 ML BAG 200 MG IV (15:48)
[2021-03-12 19:20] LABS: Partial Thromboplast Time 46.1 Seconds (24.1-36.2)
[2021-03-12] MEDS: QUEtiapine 100 MG Tablet 150 MG GT (21:17)
[2021-03-13] VITALS (34 sets, daily range): BP systolic 83–169; BP diastolic 53–96; PULSE 70–171; RESP 14–47; TEMP 37.5–38.7; O2SAT 87–99
[2021-03-13 02:16] LABS: Partial Thromboplast Time 39.4 Seconds (24.1-36.2)
[2021-03-13] MEDS: Heparin Injection (Vial) 5,000 UNIT/ML VIAL IV ×2 (03:13→10:31)
[2021-03-13] MEDS: Dexmedetomidine 1,000 mcg in 0.9% NS 240 mL 21.7 MCG CONT INF ×2 (03:20→13:01)
[2021-03-13] MEDS: Vancomycin IV 1,000 MG/200 ML BAG 200 MG IV ×2 (05:25→16:07)
[2021-03-13 06:25] LABS: Absolute Lymphocyte Count 1.09 X10^3/uL (0.83-4.51); Absolute Neutrophil Count 4.7 X10^3/uL (2.0-7.7); Basophil# 0.05 X10^3/uL; Basophil% 0.7 % (0-1); Eosinophil# 0.17 X10^3/uL; Eosinophils% 2.5 % (0-5); Hematocrit 29.6 % (40-54); Hemoglobin 9.2 g/dL (13.0-16.5); Lymphocyte # 1.09 X10^3/ul (0.83-4.51); Mean Corp Hgb Conc 31.1 g/dL (32-36); Mean Corpuscular Hgb 28.6 pg (27.0-32.0); Mean Corpuscular Volume 91.9 fL (80-94); Mean Platelet Vol. 10.8 fl (6.2-12.0); Monocyte# 0.71 X10^3/uL; Monocyte% 10.4 % (0-10); NRBC Flagged by Analyzer 1.3 % (0-5); Neutrophil # 4.66 X10^3/uL (2.7-7.7); Neutrophil % 68.6 % (47-70); POSITIVE MORPHOLOGY YES; Platelet Count 113 K/mm3 (150-450); RBC Distribution Width CV 17.6 % (11.6-14.6); RBC Distribution Width SD 59.3 fl (35.1-43.9); Red Blood Count 3.22 M/mm3 (4.6-6.2); White Blood Count 6.8 K/mm3 (4.4-11.0)
--- NOTE | 2021-03-13 06:25 | NURSING ---
prpofol and fentanyl turned off per Dr Roberts
[2021-03-13 06:29] LABS: Differential Indicated SCAN CRITERIA MET
[2021-03-13 06:44] LABS: Differential Comment SCANNED
[2021-03-13 06:47] LABS: Anion Gap 5 (5-15); BUN 18 mg/dL (7-18); BUN/Creat Ratio 18.8 RATIO (10-20); Calcium,Total 8.1 mg/dL (8.5-10.1); Chloride 118 mmol/L (98-107); Creatinine, Serum 0.96 mg/dL (0.70-1.30); EST Glomerular Filtration Rate 84 mL/min (>60); Est Glom Filt Rate - Afr Amer 102 mL/min (>60); Estimated Creatinine Clearance 63.39 ml/min; Glucose 130 mg/dL (74-106); Magnesium 1.5 mg/dL (1.6-2.6); Potassium 3.4 mmol/L (3.5-5.1); Sodium Level 149 mmol/L (136-145)
--- NOTE | 2021-03-13 06:52 | PCM.PN.INT ---
Assessment & Plan Assessment/Plan (1) Acute respiratory failure: PLAN: RECOMMENDATIONS: 1. Continue assist control mode of mechanical ventilation. Wean FiO2/PEEP for saturations greater than 90%. 2. Attempt to limit sedative medications. Continue Seroquel as ordered. 3. Continue antimicrobials. 4. Continue trophic tube feeds. 5. Continue to monitor H&H daily and transfuse if hemoglobin drops below 7 g/dL. 6. Continue heparin infusion as tolerated. 7. Continue PPI therapy twice daily. 8. Aggressive electrolyte repletion. 9. Goals of care discussion tomorrow with the patient's family. IMPRESSIONS: 1. Acute hypoxemic and hypercarbic respiratory failure status post V. fib cardiac arrest The patient was initially admitted for acute alcohol detoxification and was found unresponsive in V. fib arrest. The patient did receive ACLS with eventual return of spontaneous circulation. He was intubated as a consequence of the aforementioned. The patient will remain on assist control mode of mechanical ventilation. FiO2 and PEEP will be weaned as tolerated. In light of the fact that the patient developed fevers, empiric antimicrobials were initiated. Continue trophic tube feeds for now. Echocardiogram did reveal a depressed ejection fraction at 35%. The patient will likely require additional cardiac work-up. The patient's profound agitation continues to be a significant limiting factor to his successful extubation. 2. Acute kidney injury Improving. Likely prerenal in etiology/ischemic ATN in the setting of cardiac arrest. Anticipate improvement with stabilization of hemodynamics. Continue to monitor urine output for now. Avoid nephrotoxic medications. No current indication for renal replacement therapy. 3. Acute liver injury Improving. Likely secondary to cardiac arrest and hemodynamic instability leading to hypoperfusion. Anticipate improvement with stabilization of hemodynamics. 4. Hypernatremia/hypokalemia/hypophosphatemia/hypomagnesemia The patient will be started on D5W today given rising sodium and chloride. In addition, will replete electrolytes as ordered. Recheck BMP tomorrow morning. 5. Acute alcohol withdrawal Continue current sedation regimen including propofol, fentanyl and Precedex. The patient's agitation continues to be a barrier to successful extubation. Plan to continue Seroquel as well. 6. Anemia There is some concern for coffee-ground output from the patient's OG tube. The patient did require transfusion of blood products after his hemoglobin fell to 7.2 g/dL. Posttransfusion, hemoglobin has been stable. Okay to continue heparin at this time. Continue PPI therapy twice daily. 7. History of prosthetic mitral valve/hypertension/hyperlipidemia Complicates care, management, recovery and prognosis. Continue home medications as indicated. TIME: 34 minutes of critical care time, independent of procedures, was spent addressing the patient's acute combined respiratory failure, V. fib cardiac arrest, acute kidney injury, acute liver injury, acute alcohol withdrawal, anemia, review of all data and collaboration with the care team. Subjective Subjective The patient was seen and examined at the bedside this morning. Events from the last 24 hours have been reviewed. Today is vent day #7. The patient continues to have some low-grade fevers but does remain hemodynamically stable. He is currently on assist control mode of mechanical ventilation with an FiO2 requirement of 35% and PEEP of 5. He has been tolerant of tube feeds. The patient has remained sedated on a combination of scheduled Seroquel, propofol, Precedex and fentanyl. He is currently documented to be overall net +5.6 L for the hospitalization. Sodium and chloride are elevated at 149 and 118, respectively. Potassium is low at 3.4. Phosphorus is low at 2.0. Magnesium is low at 1.5. The patient remains on antimicrobials. This morning, the patient was placed on a spontaneous awakening trial. He was able to follow simple commands for me. Therefore, he was once again initiated on a breathing trial. A short time later, the patient became extremely agitated and was inconsolable with increased work of breathing, tachypnea and tachycardia. Therefore, his sedation was resumed and he was placed back on assist control. His family would like to meet tomorrow morning to discuss goals of care. Objective Data Objective Data The patient's most recent lab work, culture data and imaging studies have all been personally reviewed. Surface echocardiogram demonstrated normal LV size with moderate global LV systolic dysfunction and ejection fraction of 35%. Rapid coronavirus antigen testing was negative. Vital Signs: Vital Signs Temp Pulse Resp BP Pulse Ox 100.6 F H 114 H 24 H 116/78 95 03/13/21 06:00 03/13/21 06:00 03/13/21 06:00 03/13/21 06:00 03/13/21 06:00 Oxygen Delivery Method Mechanical Ventilator Weight: 61.774 kg Body Mass Index (BMI) 23.6 Intake & Output: Intake and Output for Last 24 Hours 03/11/21 03/12/21 03/13/21 23:59 23:59 23:59 Intake Total 3011.14 / 3086.94 2195.41 / 2319.95 511.12 / 511.12 Output Total 1000 / 1000 600 / 1200 925 / 925 Balance 2010. / 2085.94 1595.41 / 1119.95 -413.88 / -413.88 Lab / Micro Data Attestation: I reviewed the patient's lab results. Result Diagrams: 03/13/21 06:15 03/13/21 06:15 Labs: Laboratory Results - last 24 hr 03/12/21 09:55: APTT Cancelled 03/12/21 10:40: APTT Cancelled 03/12/21 11:16: APTT 43.7 H 03/12/21 18:50: APTT 46.1 H 03/13/21 01:55: APTT 39.4 H 03/13/21 06:15: WBC 6.8, RBC 3.22 L, Hgb 9.2 L, Hct 29.6 L, MCV 91.9, MCH 28.6, MCHC 31.1 L, RDW Std Deviation 59.3 H, RDW Coeff of Harjeet 17.6 H, Plt Count 113 L, MPV 10.8, Immature Gran % (Auto) 1.800 H, Neut % (Auto) 68.6, Lymph % (Auto) 16.0 L, [place] % (Auto) 10.4 H, Eos % (Auto) 2.5, Baso % (Auto) 0.7, Absolute Neuts (auto) 4.7, Absolute Lymphs (auto) 1.09, Nucleated RBC % 1.3, Differential Comment SCANNED 03/13/21 06:15: Sodium 149 H, Potassium 3.4 L, Chloride 118 H, Carbon Dioxide 26.0, Anion Gap 5, BUN 18, Creatinine 0.96, Estim Creat Clear Calc 63.39, Est GFR (MDRD) Af Amer 102, Est GFR (MDRD) Non-Af 84, BUN/Creatinine Ratio 18.8, Glucose 130 H, Calcium 8.1 L, Phosphorus 2.0 L, Magnesium 1.5 L Micro: Microbiology 03/09/21 07:53 Blood Culture (Wb) - Anticubital Right Blood Culture - Preliminary Coag Negative Staph 03/09/21 07:50 Urine Catheter - Catheter Urine Culture - Final Culture exhibits no growth. 03/07/21 23:00 Sputum, Induced/Lukens Gram Stain - Final 03/07/21 23:00 Sputum, Induced/Lukens Respiratory Culture - Final Mixed normal respiratory héctor. No Streptococcus pneumoniae, beta-hemolytic Streptococcus or Staphylococcus aureus isolated. 03/07/21 06:08 Nasal Secretion SARS-CoV-2 Antigen (Rapid) - Final Physical Exam Const General Appearance: intubated and patient mechanically ventilated HEENT normocephalic and head/scalp atraumatic Mouth: endotracheal tube in place and OG tube in place Eyes PERRL Neck supple General: trachea midline Chest inspection of chest normal Resp normal respiratory effort Effort and Inspection: tachypneic Auscultation: Negative for rales, rhonchi or wheezes Cardio S1 normal heart sound and S2 normal heart sound Rate: tachycardic GI normal to inspection, nondistended, normoactive bowel sounds Extremity no clubbing, cyanosis or edema Skin no rashes or lesions noted Neuro Sensorium / Orientation: sedated on vent Charges/Coding Procedures Hospitalists Procedures: [id number] Critial Care 1st Hr
--- NOTE | 2021-03-13 07:30 | PCM.PN.HOSP ---
Subjective Subjective Patient remains on the vent. T-max in the past 24 hours 101.6. Hemoglobin down to 9.2. Objective Data Objective Data Vital Signs: Vital Signs Temp Pulse Resp BP Pulse Ox 100.6 F H 114 H 24 H 116/78 95 03/13/21 06:00 03/13/21 06:00 03/13/21 06:00 03/13/21 06:00 03/13/21 06:00 Oxygen Delivery Method Mechanical Ventilator Weight: 61.774 kg Body Mass Index (BMI) 23.6 Intake & Output: Intake and Output for Last 24 Hours 03/11/21 03/12/21 03/13/21 23:59 23:59 23:59 Intake Total 3011.14 / 3086.94 2195.41 / 2319.95 511.12 / 511.12 Output Total 1000 / 1000 600 / 1200 925 / 925 Balance 2010. / 2085.94 1595.41 / 1119.95 -413.88 / -413.88 Lab / Micro Data Result Diagrams: 03/13/21 06:15 03/13/21 06:15 Labs: Laboratory Results - last 24 hr 03/12/21 09:55: APTT Cancelled 03/12/21 10:40: APTT Cancelled 03/12/21 11:16: APTT 43.7 H 03/12/21 18:50: APTT 46.1 H 03/13/21 01:55: APTT 39.4 H 03/13/21 06:15: WBC 6.8, RBC 3.22 L, Hgb 9.2 L, Hct 29.6 L, MCV 91.9, MCH 28.6, MCHC 31.1 L, RDW Std Deviation 59.3 H, RDW Coeff of Harjeet 17.6 H, Plt Count 113 L, MPV 10.8, Immature Gran % (Auto) 1.800 H, Neut % (Auto) 68.6, Lymph % (Auto) 16.0 L, [place] % (Auto) 10.4 H, Eos % (Auto) 2.5, Baso % (Auto) 0.7, Absolute Neuts (auto) 4.7, Absolute Lymphs (auto) 1.09, Nucleated RBC % 1.3, Differential Comment SCANNED 03/13/21 06:15: Sodium 149 H, Potassium 3.4 L, Chloride 118 H, Carbon Dioxide 26.0, Anion Gap 5, BUN 18, Creatinine 0.96, Estim Creat Clear Calc 63.39, Est GFR (MDRD) Af Amer 102, Est GFR (MDRD) Non-Af 84, BUN/Creatinine Ratio 18.8, Glucose 130 H, Calcium 8.1 L, Phosphorus 2.0 L, Magnesium 1.5 L Micro: Microbiology 03/09/21 07:53 Blood Culture (Wb) - Anticubital Right Blood Culture - Preliminary Coag Negative Staph 03/09/21 07:50 Urine Catheter - Catheter Urine Culture - Final Culture exhibits no growth. 03/07/21 23:00 Sputum, Induced/Lukens Gram Stain - Final 03/07/21 23:00 Sputum, Induced/Lukens Respiratory Culture - Final Mixed normal respiratory héctor. No Streptococcus pneumoniae, beta-hemolytic Streptococcus or Staphylococcus aureus isolated. 03/07/21 06:08 Nasal Secretion SARS-CoV-2 Antigen (Rapid) - Final Physical Exam Narrative GENERAL: Awake on the vent HEENT: Atraumatic; EYES; Anicteric, Normal Conjunctiva NECK; supple, normal thyroid, RESPIRATORY: Diminished to auscultation CARDIOVASCULAR: Regular S1 S2, GI: soft, normoactive bowel sounds, : No Renal angle tenderness; EXTREMITIES: No edema, no clubbing, MUSCULOSKELETAL: no muscle waisting NEURO: Awake on the vent, does not follow commands Assessment & Plan Assessment/Plan (1) Tobacco abuse: (2) Alcohol abuse: (3) History of prosthetic mitral valve: (4) Noncompliance with medications: PLAN: Patient is a 61-year-old admitted with acute alcohol withdrawal with desire for detoxification. Patient was apparently found in the emergency department with face down. He was found unresponsive was found to be in V. fib. CODE BLUE was called patient was successfully resuscitated with ACLS with ROSC SC. Intubated and admitted to the intensive care unit 1. Cardiopulmonary arrest ?Secondary to ventricular fibrillation. Patient was successfully resuscitated using ACLS protocol. Cardiology consulted 2. Acute hypoxic respiratory failure ?Secondary to above patient was intubated following ROSC admitted to the intensive care unit placed on the vent consult placed to pulmonary/intensive care for vent management ?03/09/2021; patient is awake on the vent however does not follow any purposeful commands 03/10/2021. Patient remains on the vent currently sedated ?03/11/2021; patient remains sedated on the vent -03/12/2021; remains on the vent 03/13/2021; vent with assist control mode FiO2 of 35% 3. Fever ?Cultures so far positive for coagulase staph negative.. Repeat blood culture sent in view of patient continued to spike fever. Currently on cefepime and vancomycin. -03/12/2021.Patient remains sedated on the vent. Still continues to spike fevers. Temperature maximum over the past 24 hours 101.5. Repeat blood cultures sent. ?03/07/1821; repeat blood cultures pending 4. Valvular heart disease ?With history of mitral valve prosthesis. Patient is on systemic anticoagulation with Coumadin INR was subtherapeutic started on heparin ?03/11/2021. Heparin has been held the day prior in view of significant drop in his hemoglobin level resumed starting today 5. 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 Paroxysmal A. fib ?Rate controlled 7. Chronic alcohol dependence ?Plan was for patient to have undergone detoxification however he coded prior to initiation of the program 8. Chronic heart failure with reduced ejection fraction ?Echo obtained on 08/11/2020 demonstrated EF of 60% -Echo repeated during this hospital stay demonstrated EF of 35% consistent with heart failure with reduced ejection fraction 9. Anemia - Secondary to chronic disorder monitoring H&H and transfuse if patient becomes symptomatic or hemoglobin falls below 7 ?03/10/2021; hemoglobin down to 7.2 -03/11/2021; patient was transfused with 2 unit PRBC on 03/10/2021 10. Acute transaminitis ?Secondary to shock liver from patient cardiopulmonary arrest monitoring with daily LFTs 11. Essential hypertension ?Per history 12. Tobacco dependence 13. DVT prophylaxis ?On systemic anticoagulation with heparin Charges/Coding Visit Charges Inpatient E&M: 79038 Subs Hosp L3
[2021-03-13] MEDS: Potassium Chloride 10mEq/100mL 10 MEQ/100 ML IV.SOLN. 100 MEQ IV BOLUS ×4 (08:03→12:58)
[2021-03-13] MEDS: Propofol 10MG/Ml 1,000 MG/100 ML Bottle 14.9 MG CONT INF ×2 (08:04→12:00)
[2021-03-13] MEDS: Chlorhexidine 15 ML PO ×2 (08:07→22:24)
[2021-03-13] MEDS: QUEtiapine 100 MG Tablet 150 MG GT ×2 (08:10→22:23)
[2021-03-13 09:52] LABS: Partial Thromboplast Time 52.3 Seconds (24.1-36.2)
[2021-03-13] MEDS: Vital High Protein 1,000 ML 20 ML GT (11:54)
--- NOTE | 2021-03-13 12:30 | PCM.PN.CARD ---
Subjective Subjective The patient remains in the ICU mechanically intubated/sedated. According to Dr. Roberts there was an attempt to remove his sedation to consider extubation. However he states the patient became very agitated and had to be placed back on sedation. Objective Data Vital Signs: Vital Signs Temp Pulse Resp BP Pulse Ox 100.4 F H 80 25 H 96/60 97 03/13/21 10:00 03/13/21 11:38 03/13/21 11:38 03/13/21 10:00 03/13/21 11:38 Oxygen Delivery Method Mechanical Ventilator Weight: 136 lb 3 oz Body Mass Index (BMI) 23.6 Intake & Output: Intake and Output for Last 24 Hours 03/11/21 03/12/21 03/13/21 23:59 23:59 23:59 Intake Total 3011.14 / 3086.94 2195.41 / 2319.95 1256.04 / 1256.04 Output Total 1000 / 1000 600 / 1200 925 / 925 Balance 2010.14 / 2086.94 1595.41 / 1119.95 331.04 / 331.04 Lab / Micro Data Result Diagrams: 03/13/21 06:15 03/13/21 06:15 Labs: Laboratory Results - last 24 hr 03/12/21 18:50: APTT 46.1 H 03/13/21 01:55: APTT 39.4 H 03/13/21 06:15: WBC 6.8, RBC 3.22 L, Hgb 9.2 L, Hct 29.6 L, MCV 91.9, MCH 28.6, MCHC 31.1 L, RDW Std Deviation 59.3 H, RDW Coeff of Harjeet 17.6 H, Plt Count 113 L, MPV 10.8, Immature Gran % (Auto) 1.800 H, Neut % (Auto) 68.6, Lymph % (Auto) 16.0 L, [place] % (Auto) 10.4 H, Eos % (Auto) 2.5, Baso % (Auto) 0.7, Absolute Neuts (auto) 4.7, Absolute Lymphs (auto) 1.09, Nucleated RBC % 1.3, Differential Comment SCANNED 03/13/21 06:15: Sodium 149 H, Potassium 3.4 L, Chloride 118 H, Carbon Dioxide 26.0, Anion Gap 5, BUN 18, Creatinine 0.96, Estim Creat Clear Calc 63.39, Est GFR (MDRD) Af Amer 102, Est GFR (MDRD) Non-Af 84, BUN/Creatinine Ratio 18.8, Glucose 130 H, Calcium 8.1 L, Phosphorus 2.0 L, Magnesium 1.5 L 03/13/21 09:40: APTT 52.3 H Micro: Microbiology 03/09/21 07:53 Blood Culture (Wb) - Anticubital Right Blood Culture - Preliminary Coag Negative Staph Cardiology Labs/Tests 03/12/21 18:50: APTT 46.1 H 03/13/21 01:55: APTT 39.4 H 03/13/21 06:15: WBC 6.8, RBC 3.22 L, Hgb 9.2 L, Hct 29.6 L, MCV 91.9, MCH 28.6, MCHC 31.1 L, Plt Count 113 L, MPV 10.8, Immature Gran % (Auto) 1.800 H, Neut % (Auto) 68.6, Lymph % (Auto) 16.0 L, [place] % (Auto) 10.4 H, Eos % (Auto) 2.5, Baso % (Auto) 0.7, Absolute Neuts (auto) 4.7, Nucleated RBC % 1.3 03/13/21 06:15: Sodium 149 H, Potassium 3.4 L, Chloride 118 H, Carbon Dioxide 26.0, Anion Gap 5, BUN 18, Creatinine 0.96, Est GFR (MDRD) Af Amer 102, Est GFR (MDRD) Non-Af 84, BUN/Creatinine Ratio 18.8, Glucose 130 H, Calcium 8.1 L, Phosphorus 2.0 L, Magnesium 1.5 L 03/13/21 09:40: APTT 52.3 H Rhythm: At the present time: Electronic ventricular paced rhythm Physical Exam HEENT normocephalic and head/scalp atraumatic Neck no JVD Resp clear to auscultation bilaterally Auscultation: rhonchi throughout Cardio regular rate, regular rhythm, S1 normal heart sound and S2 normal heart sound GI normal to inspection, nondistended, normoactive bowel sounds Extremity no pedal edema Assessment & Plan Assessment/Plan (1) History of prosthetic mitral valve: PLAN: The history of mechanical mitral valve prosthesis. He does need to continue AHA antibiotic prophylaxis as well as anticoagulant therapy. His mitral valve has been reassessed by transthoracic echocardiogram and appears to be stable at this time. (2) Presence of permanent cardiac pacemaker: PLAN: The patient also has an underlying permanent pacemaker. This has been followed as an outpatient. It has been interrogated and has been reported as functioning appropriately. (3) Hyperlipidemia: QUALIFIERS: Hyperlipidemia type: unspecified Qualified Code(s): E78.5 - Hyperlipidemia, unspecified PLAN: The patient should continue risk factor evaluation care as deemed appropriate. (4) Essential hypertension: PLAN: The patient's blood pressure will need to be followed with his medicines adjusted accordingly. (5) supervisor intermediates current use of anticoagulant: PLAN: The patient has been on long-term anticoagulant therapy secondary to his underlying mechanical mitral valve prosthesis. The patient has resumed IV heparin. His hemoglobin is reported at 9.2 this day. (6) Cardiac arrest: PLAN: The patient is reported to presenting to the hospital for nonvascular conditions and then being found in the emergency department on the floor in cardiopulmonary arrest with ventricular fibrillation requiring ACLS protocol/defibrillation x2 and subsequent mechanical intubation/ventilation and placement in the ICU. At the present time it is unclear as to the patient's underlying neurologic status as the patient is requiring sedation based upon concerns of alcohol withdrawal, etc. The patient's neurologic status will help guide further cardiovascular noncardiovascular evaluation and care of the patient. (7) Cardiomyopathy: PLAN: The patient's LV systolic function is diminished. This may be secondary to his cardiopulmonary arrest. Is unclear whether this is hypoxic driven versus being related to underlying CAD, etc. At the moment he will continue medical therapy and support as best as possible. However, medications such as beta-blockers, afterload reducing agents, etc. do not appear to be appropriate at this time secondary to his hypotension. Ideally over time, depending upon his neurologic response, etc., it may be reasonable to consider him for further evaluation in the cardiac catheterization laboratory. (8) Renal insufficiency: PLAN: The patient's creatinine level did increase. It has been noted to subsequently decrease. Again this may be related to his cardiopulmonary arrest event. This does play a role in whether the patient will be able to be evaluated in the cardiac catheterization laboratory at some point in time based upon the concerns of IV contrast related nephropathy. (9) Hypotension: PLAN: The patient is hypotensive. This does impact the medications he is able to receive. (10) Fever: PLAN: The patient also remains febrile with temperatures of approximately 100.4. It is unclear whether this is related to his cardiopulmonary arrest event and a neurologic event versus an underlying infectious disease related issue. He continues with IV antibiotics. He will continue evaluation care per internal medicine and critical care medicine/pulmonology. Addt'l Comments The patient's case was discussed with Dr. Roberts. He states he will be having a discussion with the patient's family members tomorrow to consider extubation and whether or not, if the patient would require reintubation, they would want that to happen versus continuing conservative medical management/comfort care. This note was generated using a voice recognition system and there may be incorrect words, spelling or punctuation that were not noted when reviewing the office note prior to saving. Procedure Criteria Type of Procedure Procedure Type: Elective Elective Risks - COVID COVID Risk Discussion: The surgeon/proceduralist and patient have discussed in detail the risk of exposure to and/or potential harm posed by the COVID-19 virus with having a surgery/procedure at this time versus the risk of delaying the surgery/procedure. It is not possible to know either the risk of delaying the surgery or procedure or chance of getting an infection with perfect accuracy, but a joint decision was made between the patient and the surgeon/proceduralist to proceed at this time with the scheduled surgery/procedure as indicated on the consent form.
[2021-03-13] MEDS: Propofol 10MG/Ml 1,000 MG/100 ML Bottle 13 MG CONT INF (19:44)
--- NOTE | 2021-03-13 20:40 | NURSING ---
When this RN came on shift, the MAR said Propofol was running at 40, but was actually running at 35. Heparin on the MAR said 1600, but actually running at 1700.
[2021-03-13 22:56] LABS: Partial Thromboplast Time > 250.0 Seconds (24.1-36.2)
--- NOTE | 2021-03-13 23:02 | NURSING ---
PTT>250. Pausing heparin for [address] Doll.
[2021-03-14] VITALS (32 sets, daily range): BP systolic 86–123; BP diastolic 55–75; PULSE 73–142; RESP 17–29; TEMP 37–38.8; O2SAT 88–96
[2021-03-14] MEDS: Dexmedetomidine 1,000 mcg in 0.9% NS 240 mL 21.7 MCG CONT INF (01:07)
[2021-03-14] MEDS: Propofol 10MG/Ml 1,000 MG/100 ML Bottle 13 MG CONT INF (03:24)
[2021-03-14 03:50] LABS: Absolute Lymphocyte Count 0.95 X10^3/uL (0.83-4.51); Absolute Neutrophil Count 5.5 X10^3/uL (2.0-7.7); Basophil# 0.04 X10^3/uL; Basophil% 0.5 % (0-1); Eosinophil# 0.18 X10^3/uL; Eosinophils% 2.4 % (0-5); Hematocrit 25.1 % (40-54); Hemoglobin 7.9 g/dL (13.0-16.5); Lymphocyte # 0.95 X10^3/ul (0.83-4.51); Lymphocyte % 12.9 % (19-41); Mean Corp Hgb Conc 31.5 g/dL (32-36); Mean Corpuscular Hgb 28.9 pg (27.0-32.0); Mean Corpuscular Volume 91.9 fL (80-94); Mean Platelet Vol. 12.3 fl (6.2-12.0); Monocyte# 0.53 X10^3/uL; Monocyte% 7.2 % (0-10); NRBC Flagged by Analyzer 0.8 % (0-5); Neutrophil # 5.49 X10^3/uL (2.7-7.7); Neutrophil % 74.8 % (47-70); POSITIVE MORPHOLOGY YES; Platelet Count 140 K/mm3 (150-450); RBC Distribution Width CV 18.5 % (11.6-14.6); RBC Distribution Width SD 61.3 fl (35.1-43.9); Red Blood Count 2.73 M/mm3 (4.6-6.2); White Blood Count 7.4 K/mm3 (4.4-11.0)
[2021-03-14 03:51] LABS: Anion Gap 5 (5-15); BUN 16 mg/dL (7-18); BUN/Creat Ratio 21.6 RATIO (10-20); Calcium,Total 7.3 mg/dL (8.5-10.1); Chloride 115 mmol/L (98-107); Creatinine, Serum 0.74 mg/dL (0.70-1.30); EST Glomerular Filtration Rate 113 mL/min (>60); Est Glom Filt Rate - Afr Amer 137 mL/min (>60); Estimated Creatinine Clearance 82.23 ml/min; Glucose 160 mg/dL (74-106); Magnesium 1.8 mg/dL (1.6-2.6); Phosphorus 2.5 mg/dL (2.5-4.9); Potassium 3.4 mmol/L (3.5-5.1); Sodium Level 145 mmol/L (136-145)
[2021-03-14 03:59] LABS: Differential Indicated SCAN CRITERIA MET
[2021-03-14 04:13] LABS: Vancomycin, Trough Level 17.1 ug/mL (5.0-15.0)
[2021-03-14] MEDS: Vancomycin IV 1,000 MG/200 ML BAG 200 MG IV ×2 (04:19→15:46)
--- NOTE | 2021-03-14 04:19 | PCM.RX.CS ---
Consult Pharmacy has been consulted to manage selected antiobiotic: Vancomycin Type of Consult: Follow-up Labs: Sodium 145 mmol/L (136-145) 03/14/21 02:40 Potassium 3.4 mmol/L (3.5-5.1) L 03/14/21 02:40 Chloride 115 mmol/L (98-107) H 03/14/21 02:40 Carbon Dioxide 25.0 mmol/L (21.0-32.0) 03/14/21 02:40 Anion Gap 5 (5-15) 03/14/21 02:40 BUN 16 mg/dL (7-18) 03/14/21 02:40 Creatinine 0.74 mg/dL (0.70-1.30) 03/14/21 02:40 Est GFR (MDRD) Af Amer 137 mL/min (>60) 03/14/21 02:40 Est GFR (MDRD) Non-Af 113 mL/min (>60) 03/14/21 02:40 BUN/Creatinine Ratio 21.6 RATIO (10-20) H 03/14/21 02:40 Glucose 160 mg/dL (74-106) H 03/14/21 02:40 Vancomycin Trough 17.1 ug/mL (5.0-15.0) H 03/14/21 02:40 Random Vancomycin 10.3 ug/mL (0.0-15.0) 03/10/21 03:25 Microbiology: Microbiology 03/11/21 12:15 Blood Culture (Wb) - Left Forearm Blood Culture - Preliminary No growth in 48 hours. 03/11/21 12:10 Blood Culture (Wb) - Right Forearm Blood Culture - Preliminary No growth in 48 hours. 03/09/21 07:53 Blood Culture (Wb) - Anticubital Right Blood Culture - Preliminary Coag Negative Staph 03/09/21 07:50 Urine Catheter - Catheter Urine Culture - Final Culture exhibits no growth. 03/07/21 23:00 Sputum, Induced/Lukens Gram Stain - Final 03/07/21 23:00 Sputum, Induced/Lukens Respiratory Culture - Final Mixed normal respiratory héctor. No Streptococcus pneumoniae, beta-hemolytic Streptococcus or Staphylococcus aureus isolated. 03/07/21 06:08 Nasal Secretion SARS-CoV-2 Antigen (Rapid) - Final Goal Trough: 15-20 mcg/mL Pharmacy Plan for Drug Dosing: Pharmacy Service will continue to monitor and adjust dosing as required. TROUGH 17.1 AT 10.5HRS. NO CHANGES FOLLOW UP TROUGH IN 2 DAYS Follow-Up Labs: Trough Vancomycin Labs to be done on [date and time ordered]: 03/16 @ 9990
[2021-03-14] MEDS: TITRATION PARAMETER CHANGE 1 EACH IV (04:49)
[2021-03-14 06:19] LABS: Differential Comment SCANNED; Toxic Granulation 1+
--- NOTE | 2021-03-14 06:40 | PN.CC_ITS ---
Assessment & Plan Assessment/Plan (1) Acute respiratory failure: PLAN: RECOMMENDATIONS: 1. Continue assist control mode of mechanical ventilation. Wean FiO2/PEEP for saturations greater than 90%. 2. Attempt to limit sedative medications. Continue Seroquel as ordered. 3. Continue antimicrobials. 4. Continue tube feeds as tolerated. 5. Continue to monitor H&H daily and transfuse if hemoglobin drops below 7 g/dL. 6. Continue heparin infusion as tolerated. 7. Continue PPI therapy twice daily. 8. Goals of care discussion with patient's family. IMPRESSIONS: 1. Acute hypoxemic and hypercarbic respiratory failure status post V. fib cardiac arrest The patient was initially admitted for acute alcohol detoxification and was foun d unresponsive in V. fib arrest. The patient did receive ACLS with eventual return of spontaneous circulation. He was intubated as a consequence of the aforementioned. The patient will remain on assist control mode of mechanical ventilation. FiO2 and PEEP will be weaned as tolerated. In light of the fact that the patient developed fevers, empiric antimicrobials were initiated. Continue tube feeds as tolerated. Echocardiogram did reveal a depressed ejection fraction at 35%. The patient will likely require additional cardiac work-up. The patient's profound agitation continues to be a significant limiting factor to his successful extubation. 2. Acute kidney injury Improving. Likely prerenal in etiology/ischemic ATN in the setting of cardiac arrest. Anticipate improvement with stabilization of hemodynamics. Continue to monitor urine output for now. Avoid nephrotoxic medications. No current indication for renal replacement therapy. 3. Acute liver injury Improving. Likely secondary to cardiac arrest and hemodynamic instability leading to hypoperfusion. Anticipate improvement with stabilization of hemodynamics. 4. Hypernatremia/hypokalemia Continue D5W for now along with additional potassium repletion. 5. Acute alcohol withdrawal Continue current sedation regimen including propofol, fentanyl and Precedex. The patient's agitation continues to be a barrier to successful extubation. Plan to continue Seroquel as well. 6. Anemia There is some concern for coffee-ground output from the patient's OG tube. The patient did require transfusion of blood products after his hemoglobin fell to 7.2 g/dL. Posttransfusion, hemoglobin has been stable. Okay to continue heparin at this time. Continue PPI therapy twice daily. 7. History of prosthetic mitral valve/hypertension/hyperlipidemia Complicates care, management, recovery and prognosis. Continue home medications as indicated. TIME: 32 minutes of critical care time, independent of procedures, was spent addressing the patient's acute combined respiratory failure, V. fib cardiac arrest, acute kidney injury, acute liver injury, acute alcohol withdrawal, anemia, review of all data and collaboration with the care team. Subjective Subjective The patient was seen and examined at the bedside this morning. Events from the last 24 hours have been reviewed. Today is vent day #8. The patient continues to have some low-grade fevers but does remain hemodynamically stable. He is currently on assist control mode of mechanical ventilation with an FiO2 requirement of 40% and PEEP of 5. He has been tolerant of tube feeds. The patient has remained sedated on a combination of scheduled Seroquel, propofol, Precedex and fentanyl. He is currently documented to be overall net +8.9 L for the hospitalization. Hemoglobin is down to 7.9 g/dL this morning. Platelet count is low at 140,000. Potassium is low at 3.4. Renal function is stable. The patient remains on antimicrobials and twice daily Protonix. I did meet with the patient's daughters this morning at the bedside to discuss overall prognosis and goals of care. I explained to them that my desire was to establish a plan with him regarding his care. In particular, I was most intere sted in establishing whether they would want the patient reintubated if he failed his trial of extubation. They are currently contemplating and have yet to come to a definitive decision. Objective Data Objective Data The patient's most recent lab work, culture data and imaging studies have all been personally reviewed. Surface echocardiogram demonstrated normal LV size with moderate global LV systolic dysfunction and ejection fraction of 35%. Rapid coronavirus antigen testing was negative. Vital Signs: Vital Signs Temp Pulse Resp BP Pulse Ox 100.1 F H 78 22 H 94/60 95 03/14/21 06:00 03/14/21 06:00 03/14/21 06:00 03/14/21 06:00 03/14/21 06:00 Oxygen Delivery Method Mechanical Ventilator Weight: 63.5 kg Body Mass Index (BMI) 23.6 Intake & Output: Intake and Output for Last 24 Hours 03/12/21 03/13/21 03/14/21 23:59 23:59 23:59 Intake Total 2195.41 / 2319.95 4337.12 / 4382.07 957.73 / 957.73 Output Total 600 / 1200 1820 / 1820 575 / 575 Balance 1595.41 / 1119.95 2517.12 / 2562.07 382.73 / 382.73 Lab / Micro Data Attestation: I reviewed the patient's lab results. Result Diagrams: 03/14/21 02:40 03/14/21 02:40 Labs: Laboratory Results - last 24 hr 03/13/21 06:15: Differential Comment SCANNED 03/13/21 06:15: Sodium 149 H, Potassium 3.4 L, Chloride 118 H, Carbon Dioxide 26.0, Anion Gap 5, BUN 18, Creatinine 0.96, Estim Creat Clear Calc 63.39, Est GFR (MDRD) Af Amer 102, Est GFR (MDRD) Non-Af 84, BUN/Creatinine Ratio 18.8, Glucose 130 H, Calcium 8.1 L, Phosphorus 2.0 L, Magnesium 1.5 L 03/13/21 09:40: APTT 52.3 H 03/13/21 16:15: APTT 62.0 H 03/13/21 22:15: APTT > 250.0 H* 03/14/21 02:40: Vancomycin Trough 17.1 H 03/14/21 02:40: WBC 7.4, RBC 2.73 L, Hgb 7.9 L, Hct 25.1 L, MCV 91.9, MCH 28.9, MCHC 31.5 L, RDW Std Deviation 61.3 H, RDW Coeff of Harjeet 18.5 H, Plt Count 140 L, MPV 12.3 H, Immature Gran % (Auto) 2.200 H, Neut % (Auto) 74.8 H, Lymph % (Auto) 12.9 L, [place] % (Auto) 7.2, Eos % (Auto) 2.4, Baso % (Auto) 0.5, Absolute Neuts (auto) 5.5, Absolute Lymphs (auto) 0.95, Nucleated RBC % 0.8, Differential Comment SCANNED, Toxic Granulation 1+ 03/14/21 02:40: Sodium 145, Potassium 3.4 L, Chloride 115 H, Carbon Dioxide 25.0, Anion Gap 5, BUN 16, Creatinine 0.74, Estim Creat Clear Calc 82.23, Est GFR (MDRD) Af Amer 137, Est GFR (MDRD) Non-Af 113, BUN/Creatinine Ratio 21.6 H, Glucose 160 H, Calcium 7.3 L, Phosphorus 2.5, Magnesium 1.8 Micro: Microbiology 03/11/21 12:15 Blood Culture (Wb) - Left Forearm Blood Culture - Preliminary No growth in 48 hours. 03/11/21 12:10 Blood Culture (Wb) - Right Forearm Blood Culture - Preliminary No growth in 48 hours. 03/09/21 07:53 Blood Culture (Wb) - Anticubital Right Blood Culture - Preliminary Coag Negative Staph 03/09/21 07:50 Urine Catheter - Catheter Urine Culture - Final Culture exhibits no growth. 03/07/21 23:00 Sputum, Induced/Lukens Gram Stain - Final 03/07/21 23:00 Sputum, Induced/Lukens Respiratory Culture - Final Mixed normal respiratory héctor. No Streptococcus pneumoniae, beta-hemolytic Streptococcus or Staphylococcus aureus isolated. 03/07/21 06:08 Nasal Secretion SARS-CoV-2 Antigen (Rapid) - Final Physical Exam Const General Appearance: intubated and patient mechanically ventilated HEENT normocephalic and head/scalp atraumatic Mouth: endotracheal tube in place and OG tube in place Eyes PERRL Neck supple General: trachea midline Chest inspection of chest normal Resp normal respiratory effort Effort and Inspection: tachypneic Auscultation: Negative for rales, rhonchi or wheezes Cardio S1 normal heart sound and S2 normal heart sound Rate: tachycardic GI normal to inspection, nondistended, normoactive bowel sounds Extremity no clubbing, cyanosis or edema Skin no rashes or lesions noted Neuro Sensorium / Orientation: sedated on vent Charges/Coding Procedures Hospitalists Procedures: 08660 Critial Care 1st Hr
--- NOTE | 2021-03-14 07:15 | PCM.PN.HOSP ---
Subjective Subjective Patient remains on the vent. Family to decide on the on the patient's CODE STATUS. Repeat blood cultures so far negative to date. Hemoglobin down to 7.9. Objective Data Objective Data Vital Signs: Vital Signs Temp Pulse Resp BP Pulse Ox 100.1 F H 78 22 H 94/60 95 03/14/21 06:00 03/14/21 06:00 03/14/21 06:00 03/14/21 06:00 03/14/21 06:00 Oxygen Delivery Method Mechanical Ventilator Weight: 63.5 kg Body Mass Index (BMI) 23.6 Intake & Output: Intake and Output for Last 24 Hours 03/12/21 03/13/21 03/14/21 23:59 23:59 23:59 Intake Total 2195.41 / 2319.95 4337.12 / 4382.07 1013.23 / 1013.23 Output Total 600 / 1200 1820 / 1820 575 / 575 Balance 1595.41 / 1119.95 2517.12 / 2562.07 438.23 / 438.23 Lab / Micro Data Result Diagrams: 03/14/21 02:40 03/14/21 02:40 Labs: Laboratory Results - last 24 hr 03/13/21 09:40: APTT 52.3 H 03/13/21 16:15: APTT 62.0 H 03/13/21 22:15: APTT > 250.0 H* 03/14/21 02:40: Vancomycin Trough 17.1 H 03/14/21 02:40: WBC 7.4, RBC 2.73 L, Hgb 7.9 L, Hct 25.1 L, MCV 91.9, MCH 28.9, MCHC 31.5 L, RDW Std Deviation 61.3 H, RDW Coeff of Harjeet 18.5 H, Plt Count 140 L, MPV 12.3 H, Immature Gran % (Auto) 2.200 H, Neut % (Auto) 74.8 H, Lymph % (Auto) 12.9 L, [place] % (Auto) 7.2, Eos % (Auto) 2.4, Baso % (Auto) 0.5, Absolute Neuts (auto) 5.5, Absolute Lymphs (auto) 0.95, Nucleated RBC % 0.8, Differential Comment SCANNED, Toxic Granulation 1+ 03/14/21 02:40: Sodium 145, Potassium 3.4 L, Chloride 115 H, Carbon Dioxide 25.0, Anion Gap 5, BUN 16, Creatinine 0.74, Estim Creat Clear Calc 82.23, Est GFR (MDRD) Af Amer 137, Est GFR (MDRD) Non-Af 113, BUN/Creatinine Ratio 21.6 H, Glucose 160 H, Calcium 7.3 L, Phosphorus 2.5, Magnesium 1.8 Micro: Microbiology 03/11/21 12:15 Blood Culture (Wb) - Left Forearm Blood Culture - Preliminary No growth in 48 hours. 03/11/21 12:10 Blood Culture (Wb) - Right Forearm Blood Culture - Preliminary No growth in 48 hours. 03/09/21 07:53 Blood Culture (Wb) - Anticubital Right Blood Culture - Preliminary Coag Negative Staph 03/09/21 07:50 Urine Catheter - Catheter Urine Culture - Final Culture exhibits no growth. 03/07/21 23:00 Sputum, Induced/Lukens Gram Stain - Final 03/07/21 23:00 Sputum, Induced/Lukens Respiratory Culture - Final Mixed normal respiratory héctor. No Streptococcus pneumoniae, beta-hemolytic Streptococcus or Staphylococcus aureus isolated. 03/07/21 06:08 Nasal Secretion SARS-CoV-2 Antigen (Rapid) - Final Physical Exam Narrative GENERAL: Awake on the vent HEENT: Atraumatic; EYES; Anicteric, Normal Conjunctiva NECK; supple, normal thyroid, RESPIRATORY: Diminished to auscultation CARDIOVASCULAR: Regular S1 S2, GI: soft, normoactive bowel sounds, : No Renal angle tenderness; EXTREMITIES: No edema, no clubbing, MUSCULOSKELETAL: no muscle waisting NEURO: Awake on the vent, does not follow commands Assessment & Plan Assessment/Plan (1) Tobacco abuse: (2) Alcohol abuse: (3) History of prosthetic mitral valve: (4) Noncompliance with medications: PLAN: Patient is a 61-year-old admitted with acute alcohol withdrawal with desire for detoxification. Patient was apparently found in the emergency department with face down. He was found unresponsive was found to be in V. fib. CODE BLUE was called patient was successfully resuscitated with ACLS with ROSC SC. Intubated and admitted to the intensive care unit 1. Cardiopulmonary arrest ?Secondary to ventricular fibrillation. Patient was successfully resuscitated using ACLS protocol. Cardiology consulted 2. Acute hypoxic respiratory failure ?Secondary to above patient was intubated following ROSC admitted to the intensive care unit placed on the vent consult placed to pulmonary/intensive care for vent management ?03/09/2021; patient is awake on the vent however does not follow any purposeful commands 03/10/2021. Patient remains on the vent currently sedated ?03/11/2021; patient remains sedated on the vent -03/12/2021; remains on the vent 03/13/2021; vent with assist control mode FiO2 of 35% -03/13/2021.Patient remains on the vent. Family to decide on the on the patient's CODE STATUS 3. Fever ?Cultures so far positive for coagulase staph negative.. Repeat blood culture sent in view of patient continued to spike fever. Currently on cefepime and vancomycin. -03/12/2021.Patient remains sedated on the vent. Still continues to spike fevers. Temperature maximum over the past 24 hours 101.5. Repeat blood cultures sent. ?03/13/1821; repeat blood cultures pending ?03/14/2021. Patient continues to spike fevers. Repeat blood cultures so far negative to date 4. Valvular heart disease ?With history of mitral valve prosthesis. Patient is on systemic anticoagulation with Coumadin INR was subtherapeutic started on heparin ?03/11/2021. Heparin has been held the day prior in view of significant drop in his hemoglobin level resumed starting today 5. 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 Paroxysmal A. fib ?Rate controlled 7. Chronic alcohol dependence ?Plan was for patient to have undergone detoxification however he coded prior to initiation of the program 8. Chronic heart failure with reduced ejection fraction ?Echo obtained on 08/11/2020 demonstrated EF of 60% -Echo repeated during this hospital stay demonstrated EF of 35% consistent with heart failure with reduced ejection fraction 9. Anemia - Secondary to chronic disorder monitoring H&H and transfuse if patient becomes symptomatic or hemoglobin falls below 7 ?03/10/2021; hemoglobin down to 7.2 -03/11/2021; patient was transfused with 2 unit PRBC on 03/10/2021 -03/14/2021; hemoglobin down to 7.9 10. Acute transaminitis ?Secondary to shock liver from patient cardiopulmonary arrest monitoring with daily LFTs 11. Essential hypertension ?Per history 12. Tobacco dependence 13. DVT prophylaxis ?On systemic anticoagulation with heparin Charges/Coding Visit Charges Inpatient E&M: 29268 Subs Hosp L3
[2021-03-14] MEDS: QUEtiapine 100 MG Tablet 150 MG GT ×2 (07:49→21:22)
[2021-03-14] MEDS: Chlorhexidine 15 ML PO ×2 (07:50→21:22)
[2021-03-14] MEDS: Potassium Chloride 10mEq/100mL 10 MEQ/100 ML IV.SOLN. 100 MEQ IV BOLUS ×4 (07:53→12:47)
[2021-03-14 08:11] LABS: Partial Thromboplast Time 164.7 Seconds (24.1-36.2)
--- NOTE | 2021-03-14 09:50 | PN.CARD_ITS ---
Subjective Subjective The patient remains in the ICU mechanically intubated/ventilated and sedated. Objective Data Vital Signs: Vital Signs Temp Pulse Resp BP Pulse Ox 100.1 F H 77 22 H 94/60 93 03/14/21 06:00 03/14/21 07:27 03/14/21 07:27 03/14/21 06:00 03/14/21 07:27 Oxygen Delivery Method Mechanical Ventilator Weight: 139 lb 15.896 oz Body Mass Index (BMI) 23.6 Intake & Output: Intake and Output for Last 24 Hours 03/12/21 03/13/21 03/14/21 23:59 23:59 23:59 Intake Total 2195.41 / 2319.95 4337.12 / 4382.07 1588.86 / 1588.86 Output Total 600 / 1200 1820 / 1820 575 / 575 Balance 1595.41 / 1119.95 2517.12 / 2562.07 1013.86 / 1013.86 Lab / Micro Data Result Diagrams: 03/14/21 02:40 03/14/21 02:40 Labs: Laboratory Results - last 24 hr 03/13/21 09:40: APTT 52.3 H 03/13/21 16:15: APTT 62.0 H 03/13/21 22:15: APTT > 250.0 H* 03/14/21 02:40: Vancomycin Trough 17.1 H 03/14/21 02:40: WBC 7.4, RBC 2.73 L, Hgb 7.9 L, Hct 25.1 L, MCV 91.9, MCH 28.9, MCHC 31.5 L, RDW Std Deviation 61.3 H, RDW Coeff of Harjeet 18.5 H, Plt Count 140 L, MPV 12.3 H, Immature Gran % (Auto) 2.200 H, Neut % (Auto) 74.8 H, Lymph % (Auto) 12.9 L, [place] % (Auto) 7.2, Eos % (Auto) 2.4, Baso % (Auto) 0.5, Absolute Neuts (auto) 5.5, Absolute Lymphs (auto) 0.95, Nucleated RBC % 0.8, Differential Comment SCANNED, Toxic Granulation 1+ 03/14/21 02:40: Sodium 145, Potassium 3.4 L, Chloride 115 H, Carbon Dioxide 25.0, Anion Gap 5, BUN 16, Creatinine 0.74, Estim Creat Clear Calc 82.23, Est GFR (MDRD) Af Amer 137, Est GFR (MDRD) Non-Af 113, BUN/Creatinine Ratio 21.6 H, Glucose 160 H, Calcium 7.3 L, Phosphorus 2.5, Magnesium 1.8 03/14/21 06:55: APTT 164.7 H* Micro: Microbiology 03/11/21 12:15 Blood Culture (Wb) - Left Forearm Blood Culture - Preliminary No growth in 48 hours. 03/11/21 12:10 Blood Culture (Wb) - Right Forearm Blood Culture - Preliminary No growth in 48 hours. Cardiology Labs/Tests 03/13/21 09:40: APTT 52.3 H 03/13/21 16:15: APTT 62.0 H 03/13/21 22:15: APTT > 250.0 H* 03/14/21 02:40: WBC 7.4, RBC 2.73 L, Hgb 7.9 L, Hct 25.1 L, MCV 91.9, MCH 28.9, MCHC 31.5 L, Plt Count 140 L, MPV 12.3 H, Immature Gran % (Auto) 2.200 H, Neut % (Auto) 74.8 H, Lymph % (Auto) 12.9 L, [place] % (Auto) 7.2, Eos % (Auto) 2.4, Baso % (Auto) 0.5, Absolute Neuts (auto) 5.5, Nucleated RBC % 0.8 03/14/21 02:40: Sodium 145, Potassium 3.4 L, Chloride 115 H, Carbon Dioxide 25.0, Anion Gap 5, BUN 16, Creatinine 0.74, Est GFR (MDRD) Af Amer 137, Est GFR (MDRD) Non-Af 113, BUN/Creatinine Ratio 21.6 H, Glucose 160 H, Calcium 7.3 L, Phosphorus 2.5, Magnesium 1.8 03/14/21 06:55: APTT 164.7 H* Rhythm: Electronic ventricular paced rhythm Physical Exam HEENT normocephalic and head/scalp atraumatic Neck no JVD Resp clear to auscultation bilaterally Auscultation: rhonchi throughout Cardio regular rate, regular rhythm, S1 normal heart sound and S2 normal heart sound GI normal to inspection, nondistended, normoactive bowel sounds Extremity no pedal edema Assessment & Plan Assessment/Plan (1) History of prosthetic mitral valve: PLAN: The history of mechanical mitral valve prosthesis. He does need to continue AHA antibiotic prophylaxis as well as anticoagulant therapy. His mitral valve has been reassessed by transthoracic echocardiogram and appears to be stable at this time. (2) Presence of permanent cardiac pacemaker: PLAN: The patient also has an underlying permanent pacemaker. This has been followed as an outpatient. It has been interrogated and has been reported as functioning appropriately. (3) Hyperlipidemia: QUALIFIERS: Hyperlipidemia type: unspecified Qualified Code(s): E78.5 - Hyperlipidemia, unspecified PLAN: The patient should continue risk factor evaluation care as deemed appropriate. (4) Essential hypertension: PLAN: The patient's blood pressure will need to be followed with his medicines adjusted accordingly. (5) senior living current use of anticoagulant: PLAN: The patient has been on long-term anticoagulant therapy secondary to his underlying mechanical mitral valve prosthesis. The patient has resumed IV heparin at this time barring an unforeseen change in his overall status. (6) Cardiac arrest: PLAN: The patient is reported to presenting to the hospital for nonvascular conditions and then being found in the emergency department on the floor in cardiopulmonary arrest with ventricular fibrillation requiring ACLS protocol/defibrillation x2 and subsequent mechanical intubation/ventilation and placement in the ICU. At the present time it is unclear as to the patient's underlying neurologic status as the patient is requiring sedation based upon concerns of alcohol withdrawal, etc. The patient's neurologic status will help guide further cardiovascular noncardiovascular evaluation and care of the patient. (7) Cardiomyopathy: PLAN: The patient's LV systolic function is diminished. This may be secondary to his cardiopulmonary arrest. Is unclear whether this is hypoxic driven versus being related to underlying CAD, etc. At the moment he will continue medical therapy and support as best as possible. Ideally over time, depending upon his neurologic response, etc., it may be reasonable to consider him for further evaluation in the cardiac catheterization laboratory. (8) Renal insufficiency: PLAN: The patient's renal function is being followed. (9) Hypotension: PLAN: The patient's blood pressure is being monitored. It does impact his medication. (10) Fever: PLAN: The patient has been febrile. It is unclear whether this is related to his cardiopulmonary arrest event and a neurologic event versus an underlying infectious disease related issue. He continues with IV antibiotics. He will continue evaluation care per internal medicine and critical care medicine/pulmonology. Addt'l Comments The patient's case was discussed and reviewed with Dr. Roberts. He did discuss the patient's case with the patient's family. At the moment the family is attempting to decide how to proceed with respect to continued intubation will which eventually may lead to tracheostomy and PEG tube placement versus extubation and if need be reintubation versus no reintubation and conservative medical management, etc. This note was generated using a voice recognition system and there may be incorrect words, spelling or punctuation that were not noted when reviewing the office note prior to saving.
[2021-03-14] MEDS: Acetaminophen 650 MG/20 ML UDC GT (10:40)
[2021-03-14] MEDS: Dexmedetomidine 1,000 mcg in 0.9% NS 240 mL 22.2 MCG CONT INF (11:33)
[2021-03-14] MEDS: Propofol 10MG/Ml 1,000 MG/100 ML Bottle 13.3 MG CONT INF ×2 (12:48→15:52)
[2021-03-14 20:52] LABS: Partial Thromboplast Time 145.4 Seconds (24.1-36.2)
--- NOTE | 2021-03-14 20:54 | NURSING ---
PTT 145.4. Heparin paused. Will restart at decreased rate in 2 hours per protocol.
[2021-03-14] MEDS: Dexmedetomidine 1,000 mcg in 0.9% NS 240 mL 23.8 MCG CONT INF (22:31)
[2021-03-14] MEDS: Propofol 10MG/Ml 1,000 MG/100 ML Bottle 15.2 MG CONT INF (22:31)
[2021-03-15] VITALS (36 sets, daily range): BP systolic 81–166; BP diastolic 49–90; PULSE 61–156; RESP 10–44; TEMP 35.2–39.3; O2SAT 90–99
[2021-03-15 04:59] LABS: Absolute Lymphocyte Count 1.12 X10^3/uL (0.83-4.51); Absolute Neutrophil Count 6.7 X10^3/uL (2.0-7.7); Basophil# 0.04 X10^3/uL; Basophil% 0.5 % (0-1); Eosinophil# 0.22 X10^3/uL; Eosinophils% 2.5 % (0-5); Hematocrit 27.9 % (40-54); Hemoglobin 8.6 g/dL (13.0-16.5); Lymphocyte # 1.12 X10^3/ul (0.83-4.51); Lymphocyte % 12.6 % (19-41); Mean Corp Hgb Conc 30.8 g/dL (32-36); Mean Corpuscular Hgb 28.2 pg (27.0-32.0); Mean Corpuscular Volume 91.5 fL (80-94); Mean Platelet Vol. 10.7 fl (6.2-12.0); Monocyte# 0.66 X10^3/uL; Monocyte% 7.4 % (0-10); NRBC Flagged by Analyzer 0.5 % (0-5); Neutrophil # 6.72 X10^3/uL (2.7-7.7); Neutrophil % 75.6 % (47-70); POSITIVE MORPHOLOGY YES; Platelet Count 189 K/mm3 (150-450); RBC Distribution Width CV 18.6 % (11.6-14.6); RBC Distribution Width SD 62.3 fl (35.1-43.9); Red Blood Count 3.05 M/mm3 (4.6-6.2); White Blood Count 8.9 K/mm3 (4.4-11.0)
[2021-03-15] MEDS: TITRATION PARAMETER CHANGE 1 EACH IV (05:06)
[2021-03-15 05:18] LABS: AST(SGOT) 65 U/L (15-37); Alanine Aminotransfer ALT/SGPT 166 U/L (16-61); Albumin, Serum 1.3 g/dL (3.2-5.0); Alkaline Phosphatase 130 U/L (45-117); Anion Gap 5 (5-15); BUN 12 mg/dL (7-18); BUN/Creat Ratio 17.4 RATIO (10-20); Bilirubin, Direct 0.31 mg/dL (0.00-0.30); Chloride 114 mmol/L (98-107); Creatinine, Serum 0.69 mg/dL (0.70-1.30); EST Glomerular Filtration Rate 123 mL/min (>60); Est Glom Filt Rate - Afr Amer 149 mL/min (>60); Estimated Creatinine Clearance 88.19 ml/min; Globulin 4.4 g/dL (2.2-4.2); Glucose 150 mg/dL (74-106); Magnesium 1.5 mg/dL (1.6-2.6); Phosphorus 2.9 mg/dL (2.5-4.9); Potassium 3.4 mmol/L (3.5-5.1); Protein, Total 5.7 g/dL (6.4-8.2); Sodium Level 144 mmol/L (136-145)
[2021-03-15 05:22] LABS: Partial Thromboplast Time 75.6 Seconds (24.1-36.2)
[2021-03-15 05:23] LABS: Differential Indicated SCAN CRITERIA MET
[2021-03-15 05:25] LABS: CPK Total, Creatine Kinase 169 U/L (39-308); Triglycerides 195 mg/dL
[2021-03-15 06:10] LABS: Anisocytosis 2+
[2021-03-15] MEDS: Propofol 10MG/Ml 1,000 MG/100 ML Bottle 7.8 MG CONT INF (06:17)
[2021-03-15] MEDS: Magnesium Sulfate 4gm/100mL 4 GM/100 ML IV.SOLN. IV (06:39)
[2021-03-15] MEDS: Potassium Chloride Oral Soln 20 MEQ/15 ML UDC 40 MEQ PO (06:39)
--- NOTE | 2021-03-15 07:02 | PN.CC_ITS ---
Assessment & Plan Assessment/Plan (1) Acute respiratory failure: PLAN: RECOMMENDATIONS: 1. Continue assist control mode of mechanical ventilation. Wean FiO2/PEEP for saturations greater than 90%. 2. Continue Precedex with spontaneous breathing trials. Continue Seroquel as ordered. 3. Continue antimicrobials. Anticipate 7-day course. 4. Continue tube feeds as tolerated. 5. Continue to monitor H&H daily and transfuse if hemoglobin drops below 7 g/dL. 6. Continue heparin infusion as tolerated. 7. Continue PPI therapy twice daily. 8. Goals of care discussion with patient's family. IMPRESSIONS: 1. Acute hypoxemic and hypercarbic respiratory failure status post V. fib cardiac arrest The patient was initially admitted for acute alcohol detoxification and was found unresponsive in V. fib arrest. The patient did receive ACLS with eventual return of spontaneous circulation. He was intubated as a consequence of the aforementioned. The patient will remain on assist control mode of mechanical ventilation. FiO2 and PEEP will be weaned as tolerated. In light of the fact that the patient developed fevers, empiric antimicrobials were initiated. Continue tube feeds as tolerated. Echocardiogram did reveal a depressed ejection fraction at 35%. The patient will likely require additional cardiac work-up. Cardiology following. Patient able to tolerate spontaneous awakening and breathing trial better this morning. We will continue with mechanical ventilation for now. We will KVO IV fluids for now 2. Acute kidney injury Resolved. Likely prerenal in etiology/ischemic ATN in the setting of cardiac arrest. Anticipate improvement with stabilization of hemodynamics. Con tinue to monitor urine output for now. Avoid nephrotoxic medications. No current indication for renal replacement therapy. 3. Acute liver injury Improving. Likely secondary to cardiac arrest and hemodynamic instability leading to hypoperfusion. Anticipate improvement with stabilization of hemodynamics. 4. Hypernatremia/hypokalemia Resolved. Will discontinue D5W. Potassium and magnesium supplementation as indicated. Clinical suspicion for an element of refeeding syndrome. 5. Acute alcohol withdrawal Continue current sedation regimen including propofol, fentanyl and Precedex. The patient's agitation continues to be a barrier to successful extubation. Plan to continue Seroquel as well. 6. Anemia There is some concern for coffee-ground output from the patient's OG tube. The patient did require transfusion of blood products after his hemoglobin fell to 7.2 g/dL. Posttransfusion, hemoglobin has been stable. Okay to continue heparin at this time. Continue PPI therapy twice daily. 7. History of prosthetic mitral valve/hypertension/hyperlipidemia Complicates care, management, recovery and prognosis. Continue home medications as indicated. TIME: 33 minutes of critical care time, independent of procedures, was spent addressing the patient's acute combined respiratory failure, V. fib cardiac arrest, acute kidney injury, acute liver injury, acute alcohol withdrawal, anemia, review of all data and collaboration with the care team. Subjective Subjective Patient did okay overnight. No acute issues were reported. Patient was able to have a spontaneous awakening and breathing trial this morning. Patient reportedly did much better than he has previously, but became tachypneic and tachycardic after 30 minutes, so was not extubated. Patient opens his eyes and denies any pain at this time. Objective Data Objective Data Vital Signs: Vital Signs Temp Pulse Resp BP Pulse Ox 38.6 C H 108 H 18 115/74 96 03/15/21 06:00 03/15/21 06:00 03/15/21 06:00 03/15/21 06:00 03/15/21 06:00 Oxygen Delivery Method Mechanical Ventilator Weight: 64.8 kg Body Mass Index (BMI) 23.6 Intake & Output: Intake and Output for Last 24 Hours 03/13/21 03/14/21 03/15/21 23:59 23:59 23:59 Intake Total 4337.12 / 4382.07 4931.77 / 5081.77 962.60 / 962.60 Output Total 1820 / 1820 2250 / 2750 900 / 900 Balance 2517.12 / 2562.07 2681.77 / 2331.77 62.60 / 62.60 Lab / Micro Data Result Diagrams: 03/15/21 04:50 03/15/21 04:50 Labs: Laboratory Results - last 24 hr 03/14/21 06:55: APTT 164.7 H* 03/14/21 19:45: APTT 145.4 H* 03/15/21 04:50: APTT 75.6 H 03/15/21 04:50: Total Creatine Kinase 169, Triglycerides 195 03/15/21 04:50: WBC 8.9, RBC 3.05 L, Hgb 8.6 L, Hct 27.9 L, MCV 91.5, MCH 28.2, MCHC 30.8 L, RDW Std Deviation 62.3 H, RDW Coeff of Harjeet 18.6 H, Plt Count 189, MPV 10.7, Immature Gran % (Auto) 1.400 H, Neut % (Auto) 75.6 H, Lymph % (Auto) 12.6 L, [place] % (Auto) 7.4, Eos % (Auto) 2.5, Baso % (Auto) 0.5, Absolute Neuts (auto) 6.7, Absolute Lymphs (auto) 1.12, Nucleated RBC % 0.5, Anisocytosis 2+ 03/15/21 04:50: Sodium 144, Potassium 3.4 L, Chloride 114 H, Carbon Dioxide 25.0, Anion Gap 5, BUN 12, Creatinine 0.69 L, Estim Creat Clear Calc 88.19, Est GFR (MDRD) Af Amer 149, Est GFR (MDRD) Non-Af 123, BUN/Creatinine Ratio 17.4, Glucose 150 H, Calcium 8.0 L, Phosphorus 2.9, Magnesium 1.5 L, Total Bilirubin 0.60, Direct Bilirubin 0.31 H, AST 65 H, ALT 166 H, Alkaline Phosphatase 130 H, Total Protein 5.7 L, Albumin 1.3 L, Globulin 4.4 H Micro: Microbiology 03/09/21 07:53 Blood Culture (Wb) - Anticubital Right Blood Culture - Final Coag Negative Staph 03/09/21 07:55 Blood Culture (Wb) - Anticubital Left Blood Culture - Final No growth in 5 days. 03/11/21 12:15 Blood Culture (Wb) - Left Forearm Blood Culture - Preliminary No growth in 48 hours. 03/11/21 12:10 Blood Culture (Wb) - Right Forearm Blood Culture - Preliminary No growth in 48 hours. 03/09/21 07:50 Urine Catheter - Catheter Urine Culture - Final Culture exhibits no growth. 03/07/21 23:00 Sputum, Induced/Lukens Gram Stain - Final 03/07/21 23:00 Sputum, Induced/Lukens Respiratory Culture - Final Mixed normal respiratory héctor. No Streptococcus pneumoniae, beta-hemolytic Streptococcus or Staphylococcus aureus isolated. 03/07/21 06:08 Nasal Secretion SARS-CoV-2 Antigen (Rapid) - Final Physical Exam Const General Appearance: intubated and patient mechanically ventilated HEENT normocephalic and head/scalp atraumatic Mouth: endotracheal tube in place and OG tube in place Eyes PERRL Neck supple General: trachea midline Chest inspection of chest normal Resp normal respiratory effort Effort and Inspection: tachypneic Auscultation: Negative for rales, rhonchi or wheezes Cardio S1 normal heart sound, S2 normal heart sound, no murmurs, no rub and no gallops Rate: tachycardic GI normal to inspection, nondistended, normoactive bowel sounds Extremity no clubbing, cyanosis or edema Skin no rashes or lesions noted Neuro Sensorium / Orientation: sedated on vent Charges/Coding Procedures Hospitalists Procedures: 34718 Critial Care 1st Hr
--- NOTE | 2021-03-15 08:38 | PN.CARD_ITS ---
Subjective Subjective The patient remains mechanically intubated and ventilated. According to the [facility] ICU staff he did not tolerate attempts at weaning trials, became agitated, and during that time it was noted his heart rate and blood pressure increased. Objective Data Vital Signs: Vital Signs Temp Pulse Resp BP Pulse Ox 101.4 F H 121 H 39 H 145/80 H 99 03/15/21 07:00 03/15/21 07:22 03/15/21 07:22 03/15/21 07:00 03/15/21 07:22 Oxygen Delivery Method Mechanical Ventilator Weight: 142 lb 13.753 oz Body Mass Index (BMI) 23.6 Intake & Output: Intake and Output for Last 24 Hours 03/13/21 03/14/21 03/15/21 23:59 23:59 23:59 Intake Total 4337.12 / 4382.07 4931.77 / 5081.77 976.46 / 976.46 Output Total 1820 / 1820 2250 / 2750 900 / 900 Balance 2517.12 / 2562.07 2681.77 / 2331.77 76.46 / 76.46 Lab / Micro Data Result Diagrams: 03/15/21 04:50 03/15/21 04:50 Labs: Laboratory Results - last 24 hr 03/14/21 19:45: APTT 145.4 H* 03/15/21 04:50: APTT 75.6 H 03/15/21 04:50: Total Creatine Kinase 169, Triglycerides 195 03/15/21 04:50: WBC 8.9, RBC 3.05 L, Hgb 8.6 L, Hct 27.9 L, MCV 91.5, MCH 28.2, MCHC 30.8 L, RDW Std Deviation 62.3 H, RDW Coeff of Harjeet 18.6 H, Plt Count 189, MPV 10.7, Immature Gran % (Auto) 1.400 H, Neut % (Auto) 75.6 H, Lymph % (Auto) 12.6 L, [place] % (Auto) 7.4, Eos % (Auto) 2.5, Baso % (Auto) 0.5, Absolute Neuts (auto) 6.7, Absolute Lymphs (auto) 1.12, Nucleated RBC % 0.5, Anisocytosis 2+ 03/15/21 04:50: Sodium 144, Potassium 3.4 L, Chloride 114 H, Carbon Dioxide 25.0, Anion Gap 5, BUN 12, Creatinine 0.69 L, Estim Creat Clear Calc 88.19, Est GFR (MDRD) Af Amer 149, Est GFR (MDRD) Non-Af 123, BUN/Creatinine Ratio 17.4, Glucose 150 H, Calcium 8.0 L, Phosphorus 2.9, Magnesium 1.5 L, Total Bilirubin 0.60, Direct Bilirubin 0.31 H, AST 65 H, ALT 166 H, Alkaline Phosphatase 130 H, Total Protein 5.7 L, Albumin 1.3 L, Globulin 4.4 H Micro: Microbiology 03/09/21 07:53 Blood Culture (Wb) - Anticubital Right Blood Culture - Final Coag Negative Staph 03/09/21 07:55 Blood Culture (Wb) - Anticubital Left Blood Culture - Final No growth in 5 days. Cardiology Labs/Tests 03/14/21 19:45: APTT 145.4 H* 03/15/21 04:50: APTT 75.6 H 03/15/21 04:50: Triglycerides 195 03/15/21 04:50: WBC 8.9, RBC 3.05 L, Hgb 8.6 L, Hct 27.9 L, MCV 91.5, MCH 28.2, MCHC 30.8 L, Plt Count 189, MPV 10.7, Immature Gran % (Auto) 1.400 H, Neut % (Auto) 75.6 H, Lymph % (Auto) 12.6 L, [place] % (Auto) 7.4, Eos % (Auto) 2.5, Baso % (Auto) 0.5, Absolute Neuts (auto) 6.7, Nucleated RBC % 0.5 03/15/21 04:50: Sodium 144, Potassium 3.4 L, Chloride 114 H, Carbon Dioxide 25.0, Anion Gap 5, BUN 12, Creatinine 0.69 L, Est GFR (MDRD) Af Amer 149, Est GFR (MDRD) Non-Af 123, BUN/Creatinine Ratio 17.4, Glucose 150 H, Calcium 8.0 L, Phosphorus 2.9, Magnesium 1.5 L, Total Bilirubin 0.60, Direct Bilirubin 0.31 H Rhythm: Electronic ventricular paced rhythm Physical Exam HEENT normocephalic and head/scalp atraumatic Neck no JVD Resp clear to auscultation bilaterally Auscultation: rhonchi throughout Cardio regular rate, regular rhythm, S1 normal heart sound and S2 normal heart sound GI normal to inspection, nondistended, normoactive bowel sounds Extremity no pedal edema Assessment & Plan Assessment/Plan (1) History of prosthetic mitral valve: PLAN: The history of mechanical mitral valve prosthesis. He does need to continue AHA antibiotic prophylaxis as well as anticoagulant therapy. His mitral valve has been reassessed by transthoracic echocardiogram and appears to be stable at this time. (2) Presence of permanent cardiac pacemaker: PLAN: The patient also has an underlying permanent pacemaker. This has been followed as an outpatient. It has been interrogated and has been reported as functioning appropriately. (3) Hyperlipidemia: QUALIFIERS: Hyperlipidemia type: unspecified Qualified Code(s): E78.5 - Hyperlipidemia, unspecified PLAN: The patient should continue risk factor evaluation care as deemed appropriate. (4) Essential hypertension: PLAN: If the patient's blood pressure remains elevated then he may need to be considered for antihypertensive therapy. 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 His hemoglobin level is noted to decrease to 8.6. He is continuing IV heparin with follow-up of his hemoglobin levels. (6) Cardiac arrest: PLAN: The patient is reported to presenting to the hospital for nonvascular conditions and then being found in the emergency department on the floor in cardiopulmonary arrest with ventricular fibrillation requiring ACLS protocol/defibrillation x2 and subsequent mechanical intubation/ventilation and placement in the ICU. At the present time it is unclear as to the patient's underlying neurologic status as the patient is requiring sedation based upon concerns of alcohol withdrawal, etc. The patient's neurologic status will help guide further cardiovascular noncardiovascular evaluation and care of the patient. (7) Cardiomyopathy: PLAN: The patient's LV systolic function is diminished. This may be secondary to his cardiopulmonary arrest. Is unclear whether this is hypoxic driven versus being related to underlying CAD, etc. At the moment he will continue medical therapy and support as best as possible. Ideally over time, depending upon his neurologic response, etc., it may be reasonable to consider him for further evaluation in the cardiac catheterization laboratory. (8) Renal insufficiency: PLAN: The patient's renal function is being followed. (9) Fever: PLAN: The patient has been febrile. His temperature remains 101.4 this morning. It is unclear whether this is related to his cardiopulmonary arrest event and a neurologic event versus an underlying infectious disease related issue. He will continue evaluation care per internal medicine and critical care medicine/pulmonology. Addt'l Comments Based upon a previous conversation with Dr. Roberts, he states that the family members are mixed with respect to their opinions on continued intubation which may lead to tracheostomy and PEG tube placement versus extubation and the concerns for either reintubation versus no reintubation and conservative medical therapy/possible comfort care therapy. Thus at the moment he is continuing supportive care in the ICU. This note was generated using a voice recognition system and there may be incorrect words, spelling or punctuation that were not noted when reviewing the office note prior to saving. Procedure Criteria Type of Procedure Procedure Type: Elective Elective Risks - COVID COVID Risk Discussion: The surgeon/proceduralist and patient have discussed in detail the risk of exposure to and/or potential harm posed by the COVID-19 virus with having a surgery/procedure at this time versus the risk of delaying the surgery/procedure. It is not possible to know either the risk of delaying the surgery or procedure or chance of getting an infection with perfect accuracy, but a joint decision was made between the patient and the surgeon/proceduralist to proceed at this time with the scheduled surgery/procedure as indicated on the consent form.
[2021-03-15] MEDS: QUEtiapine 100 MG Tablet 150 MG GT ×2 (08:41→22:22)
[2021-03-15] MEDS: Chlorhexidine 15 ML PO ×2 (08:41→22:21)
[2021-03-15] MEDS: Acetaminophen 650 MG/20 ML UDC GT ×2 (08:42→22:35)
[2021-03-15] MEDS: Dexmedetomidine 1,000 mcg in 0.9% NS 240 mL 24.3 MCG CONT INF ×2 (08:43→18:23)
[2021-03-15 10:25] LABS: Pathologist Review Reviewed
[2021-03-15 11:34] LABS: Partial Thromboplast Time 109.1 Seconds (24.1-36.2)
[2021-03-15] MEDS: Propofol 10MG/Ml 1,000 MG/100 ML Bottle 13.6 MG CONT INF ×2 (12:58→20:20)
--- NOTE | 2021-03-15 13:32 | PN.HOSP_ITS ---
Subjective Subjective Failed SBT. More alert per nursing. Objective Data Objective Data Vital Signs: Vital Signs Temp Pulse Resp BP Pulse Ox 38.6 C H 80 20 H 145/80 H 94 03/15/21 07:00 03/15/21 11:57 03/15/21 10:00 03/15/21 07:00 03/15/21 10:00 Oxygen Delivery Method Mechanical Ventilator Weight: 64.8 kg Body Mass Index (BMI) 23.6 Intake & Output: Intake and Output for Last 24 Hours 03/13/21 03/14/21 03/15/21 23:59 23:59 23:59 Intake Total 4337.12 / 4382.07 4931.77 / 5081.77 1389.74 / 1389.74 Output Total 1820 / 1820 2250 / 2750 900 / 900 Balance 2517.12 / 2562.07 2681.77 / 2331.77 489.74 / 489.74 Lab / Micro Data Result Diagrams: 03/15/21 04:50 03/15/21 04:50 Labs: Laboratory Results - last 24 hr 03/12/21 03:35: Diff Path Review Reviewed 03/14/21 19:45: APTT 145.4 H* 03/15/21 04:50: APTT 75.6 H 03/15/21 04:50: Total Creatine Kinase 169, Triglycerides 195 03/15/21 04:50: WBC 8.9, RBC 3.05 L, Hgb 8.6 L, Hct 27.9 L, MCV 91.5, MCH 28.2, MCHC 30.8 L, RDW Std Deviation 62.3 H, RDW Coeff of Harjeet 18.6 H, Plt Count 189, MPV 10.7, Immature Gran % (Auto) 1.400 H, Neut % (Auto) 75.6 H, Lymph % (Auto) 12.6 L, [place] % (Auto) 7.4, Eos % (Auto) 2.5, Baso % (Auto) 0.5, Absolute Neuts (auto) 6.7, Absolute Lymphs (auto) 1.12, Nucleated RBC % 0.5, Anisocytosis 2+ 03/15/21 04:50: Sodium 144, Potassium 3.4 L, Chloride 114 H, Carbon Dioxide 25.0, Anion Gap 5, BUN 12, Creatinine 0.69 L, Estim Creat Clear Calc 88.19, Est GFR (MDRD) Af Amer 149, Est GFR (MDRD) Non-Af 123, BUN/Creatinine Ratio 17.4, Glucose 150 H, Calcium 8.0 L, Phosphorus 2.9, Magnesium 1.5 L, Total Bilirubin 0.60, Direct Bilirubin 0.31 H, AST 65 H, ALT 166 H, Alkaline Phosphatase 130 H, Total Protein 5.7 L, Albumin 1.3 L, Globulin 4.4 H 03/15/21 11:05: APTT 109.1 H* Micro: Microbiology 03/09/21 07:53 Blood Culture (Wb) - Anticubital Right Blood Culture - Final Coag Negative Staph 03/09/21 07:55 Blood Culture (Wb) - Anticubital Left Blood Culture - Final No growth in 5 days. 03/11/21 12:15 Blood Culture (Wb) - Left Forearm Blood Culture - Preliminary No growth in 48 hours. 03/11/21 12:10 Blood Culture (Wb) - Right Forearm Blood Culture - Preliminary No growth in 48 hours. 03/09/21 07:50 Urine Catheter - Catheter Urine Culture - Final Culture exhibits no growth. 03/07/21 23:00 Sputum, Induced/Lukens Gram Stain - Final 03/07/21 23:00 Sputum, Induced/Lukens Respiratory Culture - Final Mixed normal respiratory héctor. No Streptococcus pneumoniae, beta-hemolytic Streptococcus or Staphylococcus aureus isolated. 03/07/21 06:08 Nasal Secretion SARS-CoV-2 Antigen (Rapid) - Final Physical Exam Const Constitutional Narrative: intubated and sedated. Resp normal respiratory effort, no retractions, no use of accessory muscles and clear to auscultation bilaterally Cardio regular rate, regular rhythm, S1 normal heart sound and S2 normal heart sound GI normal to inspection, nondistended, normoactive bowel sounds, soft to palpation, non-tender and non-distended Assessment & Plan Assessment/Plan (1) Acute respiratory failure: QUALIFIERS: Respiratory failure complication: hypoxia and hypercapnia Qualified Code(s): J96.01 - Acute respiratory failure with hypoxia; J96.02 - Acute respiratory failure with hypercapnia (2) Cardiac arrest: PLAN: 1. acute hypoxic and hypercapnic respiratory failure overall better not ready for extubation yet 2. Vfib arrest cardiology following EF 35% from echocardiogram on the 12th cardiology deferring further cardiac assessment until neurologic condition is further clarified. 3. alcohol withdrawal still requiring sedation with fentanyl, propofol and dexmedetomidine and quietapine 3. persistent fevers infectious work up underway on cefepime and vanc 4. mechanical MV on heparin gtt 5. VTE prophylaxis: not indicated given he is already anticoagulated Charges/Coding Visit Charges Inpatient E&M: 76221 Subs Hosp L2
[2021-03-15 18:21] LABS: Partial Thromboplast Time 129.4 Seconds (24.1-36.2)
[2021-03-15] MEDS: Vital AF 1.2 Cal Liquid 1,000 ML 50 ML GT (22:18)
[2021-03-16] VITALS (34 sets, daily range): BP systolic 78–167; BP diastolic 49–140; PULSE 69–150; RESP 19–46; TEMP 37.1–39; O2SAT 90–98
[2021-03-16] MEDS: Propofol 10MG/Ml 1,000 MG/100 ML Bottle 15.6 MG CONT INF ×2 (02:20→19:38)
[2021-03-16 03:55] LABS: Partial Thromboplast Time 25.9 Seconds (24.1-36.2)
[2021-03-16] MEDS: Dexmedetomidine 1,000 mcg in 0.9% NS 240 mL 22.7 MCG CONT INF (05:00)
[2021-03-16 05:48] LABS: Partial Thromboplast Time 22.2 Seconds (24.1-36.2)
[2021-03-16 05:59] LABS: Anion Gap 6 (5-15); BUN 11 mg/dL (7-18); BUN/Creat Ratio 16.6 RATIO (10-20); Calcium,Total 7.9 mg/dL (8.5-10.1); Chloride 113 mmol/L (98-107); Creatinine, Serum 0.66 mg/dL (0.70-1.30); EST Glomerular Filtration Rate 129 mL/min (>60); Est Glom Filt Rate - Afr Amer 156 mL/min (>60); Glucose 130 mg/dL (74-106); Potassium 3.4 mmol/L (3.5-5.1); Sodium Level 145 mmol/L (136-145)
[2021-03-16 06:00] LABS: Absolute Lymphocyte Count 0.92 X10^3/uL (0.83-4.51); Absolute Neutrophil Count 11.4 X10^3/uL (2.0-7.7); Basophil# 0.04 X10^3/uL; Basophil% 0.3 % (0-1); Eosinophil# 0.15 X10^3/uL; Eosinophils% 1.1 % (0-5); Hematocrit 24.6 % (40-54); Hemoglobin 7.9 g/dL (13.0-16.5); Lymphocyte # 0.92 X10^3/ul (0.83-4.51); Lymphocyte % 6.9 % (19-41); Mean Corp Hgb Conc 32.1 g/dL (32-36); Mean Corpuscular Hgb 29.2 pg (27.0-32.0); Mean Corpuscular Volume 90.8 fL (80-94); Mean Platelet Vol. 11.6 fl (6.2-12.0); Monocyte# 0.69 X10^3/uL; Monocyte% 5.2 % (0-10); NRBC Flagged by Analyzer 0.3 % (0-5); Neutrophil # 11.35 X10^3/uL (2.7-7.7); Neutrophil % 85.4 % (47-70); Platelet Count 236 K/mm3 (150-450); RBC Distribution Width CV 18.9 % (11.6-14.6); RBC Distribution Width SD 61.9 fl (35.1-43.9); Red Blood Count 2.71 M/mm3 (4.6-6.2); White Blood Count 13.3 K/mm3 (4.4-11.0)
[2021-03-16 07:10] LABS: Base Excess -4 mmol/L (-2 to +2); Bicarbonate 22.5 mmol/L (22-26); Blood Gas Specimen Type ART; FI02 30; Mode CPAP/PS; PEEP 5; PO2 52 mmHG (75-100); PS 5; SITE R Radial; SO2 81 % (95-99); Total Carbon Dioxide 24 mmol/L; pH 7.28 (7.35-7.45)
--- NOTE | 2021-03-16 07:12 | PN.CC_ITS ---
Assessment & Plan Assessment/Plan (1) Acute respiratory failure: QUALIFIERS: Respiratory failure complication: hypoxia and hypercapnia Qualified Code(s): J96.01 - Acute respiratory failure with hypoxia; J96.02 - Acute respiratory failure with hypercapnia PLAN: RECOMMENDATIONS: 1. Continue assist control mode of mechanical ventilation. Wean FiO2/PEEP for saturations greater than 90%. 2. Continue Precedex with spontaneous breathing trials. Continue Seroquel as ordered. 3. Continue antimicrobials. Anticipate 7-day course. 4. Continue tube feeds as tolerated. 5. Continue to monitor H&H daily and transfuse if hemoglobin drops below 7 g/dL. 6. Continue heparin infusion as tolerated. 7. Continue PPI therapy twice daily. 8. Goals of care discussion with patient's family. 9. Challenge with diuretics IMPRESSIONS: 1. Acute hypoxemic and hypercarbic respiratory failure status post V. fib cardiac arrest The patient was initially admitted for acute alcohol detoxification and was found unresponsive in V. fib arrest. The patient did receive ACLS with eventual return of spontaneous circulation. He was intubated as a consequence of the aforementioned. The patient will remain on assist control mode of mechanical ventilation. FiO2 and PEEP will be weaned as tolerated. In light of the fact that the patient developed fevers, empiric antimicrobials were initiated. Continue tube feeds as tolerated. Echocardiogram did reveal a depressed ejection fraction at 35%. The patient will likely require additional cardiac work-up. Cardiology following. Patient able to tolerate spontaneous awakening and breathing trial better this morning. We will continue with mechanical ventilation for now. Patient appears to be getting close. Will discuss with family about reintubation status. 2. Acute kidney injury Resolved. Likely prerenal in etiology/ischemic ATN in the setting of cardiac arrest. Anticipate improvement with stabilization of hemodynamics. Continue to monitor urine output for now. Avoid nephrotoxic medications. No current indication for renal replacement therapy. 3. Acute liver injury Improving. Likely secondary to cardiac arrest and hemodynamic instability leading to hypoperfusion. Anticipate improvement with stabilization of hemodyn amics. 4. Hypernatremia/hypokalemia Resolved. Off D5W. Potassium and magnesium supplementation as indicated. Clinical suspicion for an element of refeeding syndrome. 5. Acute alcohol withdrawal Continue current sedation regimen including propofol, fentanyl and Precedex. The patient's agitation continues to be a barrier to successful extubation. Plan to continue Seroquel as well. 6. Anemia There is some concern for coffee-ground output from the patient's OG tube. The patient did require transfusion of blood products after his hemoglobin fell to 7.2 g/dL. Posttransfusion, hemoglobin has been stable. Okay to continue heparin at this time. Continue PPI therapy twice daily. 7. History of prosthetic mitral valve/hypertension/hyperlipidemia Complicates care, management, recovery and prognosis. Continue home medications as indicated. TIME: 38 minutes of critical care time, independent of procedures, was spent addressing the patient's acute combined respiratory failure, V. fib cardiac arrest, acute kidney injury, acute liver injury, acute alcohol withdrawal, anemia, review of all data and collaboration with the care team. Subjective Subjective Patient did okay overnight. Patient was able to tolerate a spontaneous breathing trial for a whole hour. On my evaluation, patient was noted to have significant secretions in the endotracheal tube with some respiratory distress. ABG was obtained prior to reinitiation of ventilator support. Objective Data Objective Data Vital Signs: Vital Signs Temp Pulse Resp BP Pulse Ox 37.6 C H 117 H 26 H 133/72 H 96 03/16/21 04:00 03/16/21 05:40 03/16/21 05:40 03/16/21 04:00 03/16/21 05:40 Oxygen Delivery Method Mechanical Ventilator Weight: 65.4 kg Body Mass Index (BMI) 23.6 Intake & Output: Intake and Output for Last 24 Hours 03/14/21 03/15/21 03/16/21 23:59 23:59 23:59 Intake Total 4931.77 / 5081.77 3301.46 / 3357.26 353.98 / 353.98 Output Total 2250 / 2750 3150 / 4175 1025 / 1025 Balance 2681.77 / 2331.77 151.46 / -817.74 -671.02 / -671.02 Lab / Micro Data Result Diagrams: 03/16/21 03:20 03/16/21 03:20 Labs: Laboratory Results - last 24 hr 03/12/21 03:35: Diff Path Review Reviewed 03/15/21 11:05: APTT 109.1 H* 03/15/21 15:50: APTT 129.4 H* 03/16/21 03:20: APTT 25.9 03/16/21 03:20: WBC 13.3 H, RBC 2.71 L, Hgb 7.9 L, Hct 24.6 L, MCV 90.8, MCH 29.2, MCHC 32.1, RDW Std Deviation 61.9 H, RDW Coeff of Harjeet 18.9 H, Plt Count 236, MPV 11.6, Immature Gran % (Auto) 1.100 H, Neut % (Auto) 85.4 H, Lymph % (Auto) 6.9 L, [place] % (Auto) 5.2, Eos % (Auto) 1.1, Baso % (Auto) 0.3, Absolute Neuts (auto) 11.4 H, Absolute Lymphs (auto) 0.92, Nucleated RBC % 0.3 03/16/21 03:20: Sodium 145, Potassium 3.4 L, Chloride 113 H, Carbon Dioxide 26.0, Anion Gap 6, BUN 11, Creatinine 0.66 L, Estim Creat Clear Calc 92.20, Est GFR (MDRD) Af Amer 156, Est GFR (MDRD) Non-Af 129, BUN/Creatinine Ratio 16.6, Glucose 130 H, Calcium 7.9 L 03/16/21 05:10: APTT 22.2 L Micro: Microbiology 03/09/21 07:53 Blood Culture (Wb) - Anticubital Right Blood Culture - Final Coag Negative Staph 03/09/21 07:55 Blood Culture (Wb) - Anticubital Left Blood Culture - Final No growth in 5 days. 03/11/21 12:15 Blood Culture (Wb) - Left Forearm Blood Culture - Preliminary No growth in 48 hours. 03/11/21 12:10 Blood Culture (Wb) - Right Forearm Blood Culture - Preliminary No growth in 48 hours. 03/09/21 07:50 Urine Catheter - Catheter Urine Culture - Final Culture exhibits no growth. 03/07/21 23:00 Sputum, Induced/Lukens Gram Stain - Final 03/07/21 23:00 Sputum, Induced/Lukens Respiratory Culture - Final Mixed normal respiratory héctor. No Streptococcus pneumoniae, beta-hemolytic Streptococcus or Staphylococcus aureus isolated. 03/07/21 06:08 Nasal Secretion SARS-CoV-2 Antigen (Rapid) - Final ABG Data ABG results: ABG 03/16/21 07:05 Specimen Type ART Sample Site R Radial pH 7.28 L Bicarbonate Actual 22.5 Total CO2 24 Base Excess -4 L O2 Saturation 81 L O2 % 30 ABG pCO2 48.0 H ABG pO2 52 L Vent Mode CPAP/PS POC PEEP 5 POC Pressure Suppt 5 Physical Exam Const General Appearance: intubated and patient mechanically ventilated HEENT normocephalic and head/scalp atraumatic Mouth: endotracheal tube in place and OG tube in place Eyes PERRL Neck supple General: trachea midline Chest inspection of chest normal Resp normal respiratory effort Effort and Inspection: tachypneic Auscultation: rhonchi lower bilaterally; Negative for rales or wheezes Cardio S1 normal heart sound, S2 normal heart sound, no murmurs, no rub and no gallops Rate: tachycardic GI normal to inspection, nondistended, normoactive bowel sounds Extremity no clubbing, cyanosis or edema Skin no rashes or lesions noted Neuro Sensorium / Orientation: sedated on vent Charges/Coding Procedures Hospitalists Procedures: 17347 Critial Care 1st Hr
[2021-03-16] MEDS: Potassium Chloride Oral Soln 20 MEQ/15 ML UDC 40 MEQ PO (08:32)
[2021-03-16] MEDS: Furosemide 40 MG/4 ML Vial IV (08:32)
[2021-03-16] MEDS: 0.9% Saline Lock 10 ML Syringe IV (08:32)
[2021-03-16] MEDS: QUEtiapine 100 MG Tablet 150 MG GT ×2 (08:33→21:26)
[2021-03-16] MEDS: Heparin Injection (Vial) 5,000 UNIT/ML VIAL IV ×3 (08:37→21:31)
[2021-03-16 08:41] LABS: Magnesium 1.7 mg/dL (1.6-2.6); Phosphorus 3.2 mg/dL (2.5-4.9)
[2021-03-16] MEDS: Chlorhexidine 15 ML PO ×2 (08:42→21:27)
--- NOTE | 2021-03-16 08:43 | PN.CARD_ITS ---
Subjective Subjective The patient remains in the ICU. He remains mechanically intubated/ventilated and sedated. According to the ICU staff he did not tolerate his weaning trial this morning due to his underlying agitation and subsequent hypoxemia. Objective Data Vital Signs: Vital Signs Temp Pulse Resp BP Pulse Ox 102.1 F H 134 H 36 H 130/77 H 90 03/16/21 08:00 03/16/21 08:00 03/16/21 08:00 03/16/21 08:00 03/16/21 08:00 Oxygen Delivery Method Mechanical Ventilator Weight: 144 lb 2.917 oz Body Mass Index (BMI) 23.6 Intake & Output: Intake and Output for Last 24 Hours 03/14/21 03/15/21 03/16/21 23:59 23:59 23:59 Intake Total 4931.77 / 5081.77 3301.46 / 3357.26 820.85 / 820.85 Output Total 2250 / 2750 3150 / 4175 1025 / 1025 Balance 2681.77 / 2331.77 151.46 / -817.74 -204.15 / -204.15 Lab / Micro Data Result Diagrams: 03/16/21 03:20 03/16/21 03:20 Labs: Laboratory Results - last 24 hr 03/12/21 03:35: Diff Path Review Reviewed 03/15/21 11:05: APTT 109.1 H* 03/15/21 15:50: APTT 129.4 H* 03/16/21 03:20: APTT 25.9 03/16/21 03:20: WBC 13.3 H, RBC 2.71 L, Hgb 7.9 L, Hct 24.6 L, MCV 90.8, MCH 29.2, MCHC 32.1, RDW Std Deviation 61.9 H, RDW Coeff of Harjeet 18.9 H, Plt Count 236, MPV 11.6, Immature Gran % (Auto) 1.100 H, Neut % (Auto) 85.4 H, Lymph % (Auto) 6.9 L, [place] % (Auto) 5.2, Eos % (Auto) 1.1, Baso % (Auto) 0.3, Absolute Neuts (auto) 11.4 H, Absolute Lymphs (auto) 0.92, Nucleated RBC % 0.3 03/16/21 03:20: Sodium 145, Potassium 3.4 L, Chloride 113 H, Carbon Dioxide 26.0, Anion Gap 6, BUN 11, Creatinine 0.66 L, Estim Creat Clear Calc 92.20, Est GFR (MDRD) Af Amer 156, Est GFR (MDRD) Non-Af 129, BUN/Creatinine Ratio 16.6, Glucose 130 H, Calcium 7.9 L 03/16/21 03:20: Phosphorus 3.2, Magnesium 1.7 03/16/21 05:10: APTT 22.2 L ABG Data ABG results: ABG 03/16/21 07:05 Specimen Type ART Sample Site R Radial pH 7.28 L Bicarbonate Actual 22.5 Total CO2 24 Base Excess -4 L O2 Saturation 81 L O2 % 30 ABG pCO2 48.0 H ABG pO2 52 L Vent Mode CPAP/PS POC PEEP 5 POC Pressure Suppt 5 Cardiology Labs/Tests 03/15/21 11:05: APTT 109.1 H* 03/15/21 15:50: APTT 129.4 H* 03/16/21 03:20: APTT 25.9 03/16/21 03:20: WBC 13.3 H, RBC 2.71 L, Hgb 7.9 L, Hct 24.6 L, MCV 90.8, MCH 29.2, MCHC 32.1, Plt Count 236, MPV 11.6, Immature Gran % (Auto) 1.100 H, Neut % (Auto) 85.4 H, Lymph % (Auto) 6.9 L, [place] % (Auto) 5.2, Eos % (Auto) 1.1, Baso % (Auto) 0.3, Absolute Neuts (auto) 11.4 H, Nucleated RBC % 0.3 03/16/21 03:20: Sodium 145, Potassium 3.4 L, Chloride 113 H, Carbon Dioxide 26.0, Anion Gap 6, BUN 11, Creatinine 0.66 L, Est GFR (MDRD) Af Amer 156, Est GFR (MDRD) Non-Af 129, BUN/Creatinine Ratio 16.6, Glucose 130 H, Calcium 7.9 L 03/16/21 03:20: Phosphorus 3.2, Magnesium 1.7 03/16/21 05:10: APTT 22.2 L 03/16/21 07:05: pH 7.28 L, Bicarbonate Actual 22.5, Base Excess -4 L, O2 Saturation 81 L, ABG pCO2 48.0 H, ABG pO2 52 L Rhythm: Sinus rhythm/sinus tachycardia Physical Exam HEENT normocephalic and head/scalp atraumatic Neck no JVD Resp clear to auscultation bilaterally Auscultation: rhonchi throughout Cardio regular rhythm, S1 normal heart sound and S2 normal heart sound Rate: tachycardic GI normal to inspection, nondistended, normoactive bowel sounds Extremity no pedal edema Assessment & Plan Assessment/Plan (1) History of prosthetic mitral valve: PLAN: The history of mechanical mitral valve prosthesis. He does need to continue AHA antibiotic prophylaxis as well as anticoagulant therapy. His mitral valve has been reassessed by transthoracic echocardiogram and appears to be stable at this time. (2) Presence of permanent cardiac pacemaker: PLAN: The patient also has an underlying permanent pacemaker. This has been followed as an outpatient. It has been interrogated and has been reported as functioning appropriately. (3) Cardiac arrest: PLAN: The patient is reported to presenting to the hospital for nonvascular conditions and then being found in the emergency department on the floor in cardiopulmonary arrest with ventricular fibrillation requiring ACLS protocol/defibrillation x2 and subsequent mechanical intubation/ventilation and placement in the ICU. At the present time it is unclear as to the patient's underlying neurologic status as the patient is requiring sedation based upon concerns of alcohol withdrawal, etc. The patient's neurologic status will help guide further cardiovascular noncardiovascular evaluation and care of the patient. (4) Cardiomyopathy: PLAN: The patient's LV systolic function is diminished. This may be secondary to his cardiopulmonary arrest. Is unclear whether this is hypoxic driven versus being related to underlying CAD, etc. At the moment he will continue medical therapy and support as best as possible. Ideally over time, depending upon his neurologic response, etc., it may be reasonable to consider him for further evaluation in the cardiac catheterization laboratory. (5) Renal insufficiency: PLAN: The patient's renal function is being followed. His creatinine level is 0.66 today. (6) Fever: PLAN: The patient has been febrile. His temperature remains 102.1 this morning. It is unclear whether this is related to his cardiopulmonary arrest event and a neurologic event versus an underlying infectious disease related issue. He will continue evaluation care per internal medicine and critical care medicine/pulmonology. (7) Hyperlipidemia: QUALIFIERS: Hyperlipidemia type: unspecified Qualified Code(s): E78.5 - Hyperlipidemia, unspecified PLAN: The patient should continue risk factor evaluation care as deemed appropriate. (8) Essential hypertension: PLAN: If the patient's blood pressure remains elevated then he may need to be considered for antihypertensive therapy. (9) custodial current use of anticoagulant: PLAN: The patient has been on long-term anticoagulant therapy secondary to his underlying mechanical mitral valve prosthesis. His hemoglobin level is noted to decrease to 7.9. He is continuing IV heparin with follow-up of his hemoglobin levels. Procedure Criteria Type of Procedure Procedure Type: Elective Elective Risks - COVID COVID Risk Discussion: The surgeon/proceduralist and patient have discussed in detail the risk of exposure to and/or potential harm posed by the COVID-19 virus with having a surgery/procedure at this time versus the risk of delaying the surgery/procedure. It is not possible to know either the risk of delaying the surgery or procedure or chance of getting an infection with perfect accuracy, but a joint decision was made between the patient and the surgeon/proceduralist to proceed at this time with the scheduled surgery/procedure as indicated on the consent form.
[2021-03-16] MEDS: CHLORHEXIDINE GLUC 2% CLOTH 1 EACH TOWELETTE TOPICAL (08:56)
[2021-03-16] MEDS: Propofol 10MG/Ml 1,000 MG/100 ML Bottle 19.4 MG CONT INF ×2 (09:24→14:30)
[2021-03-16] MEDS: Senna/Docusate Sodium 1 Tablet 2 TABLET PO (11:12)
--- NOTE | 2021-03-16 13:24 | PN.HOSP_ITS ---
Subjective Subjective SBT performed, but restarted back on vent this AM. Objective Data Objective Data Vital Signs: Vital Signs Temp Pulse Resp BP Pulse Ox 37.3 C H 75 24 H 80/53 L 92 03/16/21 13:00 03/16/21 13:00 03/16/21 13:00 03/16/21 13:00 03/16/21 13:00 Oxygen Delivery Method Mechanical Ventilator Weight: 65.4 kg Body Mass Index (BMI) 23.6 Intake & Output: Intake and Output for Last 24 Hours 03/14/21 03/15/21 03/16/21 23:59 23:59 23:59 Intake Total 4931.77 / 5081.77 3301.46 / 3357.26 2711.82 / 2711.82 Output Total 2250 / 2750 3150 / 4175 3225 / 3225 Balance 2681.77 / 2331.77 151.46 / -817.74 -513.18 / -513.18 Lab / Micro Data Result Diagrams: 03/16/21 03:20 03/16/21 03:20 Labs: Laboratory Results - last 24 hr 03/15/21 15:50: APTT 129.4 H* 03/16/21 03:20: APTT 25.9 03/16/21 03:20: WBC 13.3 H, RBC 2.71 L, Hgb 7.9 L, Hct 24.6 L, MCV 90.8, MCH 29.2, MCHC 32.1, RDW Std Deviation 61.9 H, RDW Coeff of Harjeet 18.9 H, Plt Count 236, MPV 11.6, Immature Gran % (Auto) 1.100 H, Neut % (Auto) 85.4 H, Lymph % (Auto) 6.9 L, [place] % (Auto) 5.2, Eos % (Auto) 1.1, Baso % (Auto) 0.3, Absolute Neuts (auto) 11.4 H, Absolute Lymphs (auto) 0.92, Nucleated RBC % 0.3 03/16/21 03:20: Sodium 145, Potassium 3.4 L, Chloride 113 H, Carbon Dioxide 26.0, Anion Gap 6, BUN 11, Creatinine 0.66 L, Estim Creat Clear Calc 92.20, Est GFR (MDRD) Af Amer 156, Est GFR (MDRD) Non-Af 129, BUN/Creatinine Ratio 16.6, Glucose 130 H, Calcium 7.9 L 03/16/21 03:20: Phosphorus 3.2, Magnesium 1.7 03/16/21 05:10: APTT 22.2 L Micro: Microbiology 03/11/21 12:10 Blood Culture (Wb) - Right Forearm Blood Culture - Final No growth in 5 days. 03/11/21 12:15 Blood Culture (Wb) - Left Forearm Blood Culture - Final No growth in 5 days. 03/09/21 07:53 Blood Culture (Wb) - Anticubital Right Blood Culture - Final Coag Negative Staph 03/09/21 07:55 Blood Culture (Wb) - Anticubital Left Blood Culture - Final No growth in 5 days. 03/09/21 07:50 Urine Catheter - Catheter Urine Culture - Final Culture exhibits no growth. 03/07/21 23:00 Sputum, Induced/Lukens Gram Stain - Final 03/07/21 23:00 Sputum, Induced/Lukens Respiratory Culture - Final Mixed normal respiratory héctor. No Streptococcus pneumoniae, beta-hemolytic Streptococcus or Staphylococcus aureus isolated. 03/07/21 06:08 Nasal Secretion SARS-CoV-2 Antigen (Rapid) - Final ABG Data ABG results: ABG 03/16/21 07:05 Specimen Type ART Sample Site R Radial pH 7.28 L Bicarbonate Actual 22.5 Total CO2 24 Base Excess -4 L O2 Saturation 81 L O2 % 30 ABG pCO2 48.0 H ABG pO2 52 L Vent Mode CPAP/PS POC PEEP 5 POC Pressure Suppt 5 Physical Exam Const Constitutional Narrative: intubated and sedated. Resp normal respiratory effort, no retractions, no use of accessory muscles and clear to auscultation bilaterally Cardio regular rate, regular rhythm and S1 normal heart sound GI normal to inspection, nondistended, normoactive bowel sounds, soft to palpation, non-tender and non-distended Assessment & Plan Assessment/Plan (1) Acute respiratory failure: QUALIFIERS: Respiratory failure complication: hypoxia and hypercapnia Qualified Code(s): J96.01 - Acute respiratory failure with hypoxia; J96.02 - Acute respiratory failure with hypercapnia (2) Cardiac arrest: PLAN: 1. acute hypoxic and hypercapnic respiratory failure overall better not ready for extubation yet 2. Vfib arrest cardiology following EF 35% from echocardiogram on the cardiology deferring further cardiac assessment until neurologic condition is further clarified. 3. alcohol withdrawal still requiring sedation with fentanyl, propofol and dexmedetomidine and quietapine 3. persistent fevers infectious work up underway on cefepime and vanc 4. mechanical MV on heparin gtt 5. VTE prophylaxis: not indicated given he is already anticoagulated Charges/Coding Visit Charges Inpatient E&M: 92061 Subs Hosp L2
[2021-03-16] MEDS: 0.9% Normal Saline 250 ML IV.SOLN. IV (14:30)
[2021-03-16 14:40] LABS: Partial Thromboplast Time 33.2 Seconds (24.1-36.2)
[2021-03-16] MEDS: Dexmedetomidine 1,000 mcg in 0.9% NS 240 mL 24.3 MCG CONT INF (15:36)
--- NOTE | 2021-03-16 16:12 | CASEMGMT ---
Social Work SW participated in ICU rounds this morning. SW called daughter Arianna this afternoon to start speaking w/her about goals of care and anticipated discharge should it become appropriate. Her voicemail is full, will continue to try to follow up w/daughter. PATRIC Connors
[2021-03-16 21:09] LABS: Partial Thromboplast Time 40.2 Seconds (24.1-36.2)
[2021-03-16] MEDS: Acetaminophen 650 MG/20 ML UDC GT (23:42)
[2021-03-17] VITALS (34 sets, daily range): BP systolic 89–190; BP diastolic 55–146; PULSE 81–135; RESP 18–48; TEMP 38.4–39.8; O2SAT 85–100
[2021-03-17] MEDS: Propofol 10MG/Ml 1,000 MG/100 ML Bottle 19.4 MG CONT INF (01:20)
[2021-03-17] MEDS: Dexmedetomidine 1,000 mcg in 0.9% NS 240 mL 24.3 MCG CONT INF (01:40)
[2021-03-17 03:31] LABS: Absolute Lymphocyte Count 1.06 X10^3/uL (0.83-4.51); Absolute Neutrophil Count 6.6 X10^3/uL (2.0-7.7); Basophil# 0.05 X10^3/uL; Basophil% 0.6 % (0-1); Eosinophil# 0.22 X10^3/uL; Eosinophils% 2.6 % (0-5); Hematocrit 24.3 % (40-54); Hemoglobin 7.8 g/dL (13.0-16.5); Lymphocyte # 1.06 X10^3/ul (0.83-4.51); Lymphocyte % 12.4 % (19-41); Mean Corp Hgb Conc 32.1 g/dL (32-36); Mean Corpuscular Volume 90.3 fL (80-94); Mean Platelet Vol. 10.3 fl (6.2-12.0); Monocyte# 0.51 X10^3/uL; NRBC Flagged by Analyzer 0 % (0-5); Neutrophil # 6.63 X10^3/uL (2.7-7.7); Neutrophil % 77.5 % (47-70); Platelet Count 269 K/mm3 (150-450); RBC Distribution Width CV 19.1 % (11.6-14.6); RBC Distribution Width SD 62.8 fl (35.1-43.9); Red Blood Count 2.69 M/mm3 (4.6-6.2); White Blood Count 8.6 K/mm3 (4.4-11.0)
[2021-03-17 03:40] LABS: Partial Thromboplast Time 37.6 Seconds (24.1-36.2)
[2021-03-17 03:50] LABS: ALB/GLOB Ratio 0.3 RATIO (0.9-2.4); AST(SGOT) 39 U/L (15-37); Alanine Aminotransfer ALT/SGPT 84 U/L (16-61); Albumin, Serum 1.2 g/dL (3.2-5.0); Alkaline Phosphatase 129 U/L (45-117); Anion Gap 5 (5-15); BUN 14 mg/dL (7-18); BUN/Creat Ratio 19.3 RATIO (10-20); Calcium,Total 7.9 mg/dL (8.5-10.1); Chloride 114 mmol/L (98-107); Creatinine, Serum 0.73 mg/dL (0.70-1.30); EST Glomerular Filtration Rate 116 mL/min (>60); Est Glom Filt Rate - Afr Amer 140 mL/min (>60); Estimated Creatinine Clearance 83.36 ml/min; Globulin 4.4 g/dL (2.2-4.2); Glucose 121 mg/dL (74-106); Potassium 2.9 mmol/L (3.5-5.1); Protein, Total 5.6 g/dL (6.4-8.2); Sodium Level 146 mmol/L (136-145)
[2021-03-17] MEDS: Heparin Injection (Vial) 5,000 UNIT/ML VIAL IV ×3 (03:53→18:16)
[2021-03-17 03:55] LABS: Magnesium 1.7 mg/dL (1.6-2.6); Phosphorus 2.8 mg/dL (2.5-4.9)
[2021-03-17] MEDS: Potassium Chloride Oral Soln 20 MEQ/15 ML UDC 40 MEQ PO (05:55)
[2021-03-17 06:50] LABS: Base Excess 0 mmol/L (-2 to +2); Bicarbonate 24.1 mmol/L (22-26); FI02 30; Mode CPAP/PS; PEEP 5; PO2 25 mmHG (75-100); PS 5; SITE R Radial; SO2 48 % (95-99); Total Carbon Dioxide 25 mmol/L; pCO2 36.1 mmHg (35-45); pH 7.43 (7.35-7.45)
[2021-03-17 07:00] LABS: Base Excess -2 mmol/L (-2 to +2); Bicarbonate 21.3 mmol/L (22-26); Blood Gas Specimen Type ART; FI02 30; Mode CPAP/PS; PEEP 5; PO2 59 mmHG (75-100); PS 5; SO2 93 % (95-99); Total Carbon Dioxide 22 mmol/L; pCO2 27.1 mmHg (35-45)
[2021-03-17] MEDS: CHLORHEXIDINE GLUC 2% CLOTH 1 EACH TOWELETTE TOPICAL (08:12)
--- NOTE | 2021-03-17 08:13 | PCM.PN.INT ---
Assessment & Plan Assessment/Plan (1) Acute respiratory failure: QUALIFIERS: Respiratory failure complication: hypoxia and hypercapnia Qualified Code(s): J96.01 - Acute respiratory failure with hypoxia; J96.02 - Acute respiratory failure with hypercapnia PLAN: RECOMMENDATIONS: 1. Proceed with extubation 2. Wean Precedex as tolerated. Continue Seroquel as ordered. 3. Complete antimicrobials 4. Bedside swallow evaluation 5. Continue to monitor H&H daily and transfuse if hemoglobin drops below 7 g/dL. 6. Continue heparin infusion as tolerated. 7. Continue PPI therapy twice daily. 8. Possibly challenge with diuretics later in the day IMPRESSIONS: 1. Acute hypoxemic and hypercarbic respiratory failure status post V. fib cardiac arrest The patient was initially admitted for acute alcohol detoxification and was found unresponsive in V. fib arrest. The patient did receive ACLS with eventual return of spontaneous circulation. He was intubated as a consequence of the aforementioned. The patient will remain on assist control mode of mechanical ventilation. FiO2 and PEEP will be weaned as tolerated. In light of the fact that the patient developed fevers, empiric antimicrobials were initiated. Continue tube feeds as tolerated. Echocardiogram did reveal a depressed ejection fraction at 35%. The patient will likely require additional cardiac work-up. Cardiology following. Patient was able to be extubated this morning. Continue with aggressive pulmonary toileting. Decrease Precedex to help with patient interaction with Acapella and incentive spirometer. 2. Acute kidney injury Resolved. Likely prerenal in etiology/ischemic ATN in the setting of cardiac arrest. Anticipate improvement with stabilization of hemodynamics. Continue to monitor urine output for now. Avoid nephrotoxic medications. No current indication for renal replacement therapy. 3. Acute liver injury Improving. Likely secondary to cardiac arrest and hemodynamic instability leading to hypoperfusion. Anticipate improvement with stabilization of hemodynamics. 4. Hypernatremia/hypokalemia Resolved. Off D5W. Potassium and magnesium supplementation as indicated. Clinical suspicion for an element of refeeding syndrome. 5. Acute alcohol withdrawal Continue current sedation regimen including propofol, fentanyl and Precedex. The patient's agitation continues to be a barrier to successful extubation. Plan to continue Seroquel as well. 6. Anemia There is some concern for coffee-ground output from the patient's OG tube. The patient did require transfusion of blood products after his hemoglobin fell to 7.2 g/dL. Posttransfusion, hemoglobin has been stable. Okay to continue heparin at this time. Continue PPI therapy twice daily. 7. History of prosthetic mitral valve/hypertension/hyperlipidemia Complicates care, management, recovery and prognosis. Continue home medications as indicated. TIME: 32 minutes of critical care time, independent of procedures, was spent addressing the patient's acute combined respiratory failure, V. fib cardiac arrest, acute kidney injury, acute liver injury, acute alcohol withdrawal, anemia, review of all data and collaboration with the care team. Subjective Subjective Patient did okay overnight. No acute issues were reported. Patient was able to have a spontaneous breathing trial this morning and make it 1 hour. Patient has had copious secretions overnight, but has a strong cough and was coughing them into the endotracheal tube. Patient was found to have a leak was able to be subsequently extubated. Patient does remain on full dose Precedex, so was not very interactive. Objective Data Objective Data Vital Signs: Vital Signs Temp Pulse Resp BP Pulse Ox 38.6 C H 110 H 41 H 158/88 H 95 03/17/21 08:00 03/17/21 08:00 03/17/21 08:00 03/17/21 08:00 03/17/21 08:00 Oxygen Flow Rate (L/min) 3 Oxygen Delivery Method Nasal Cannula Weight: 62.8 kg Body Mass Index (BMI) 23.6 Intake & Output: Intake and Output for Last 24 Hours 03/15/21 03/16/21 03/17/21 23:59 23:59 23:59 Intake Total 3301.46 / 3357.26 4238.26 / 4387.41 681.96 / 681.96 Output Total 3150 / 4175 4750 / 4750 450 / 450 Balance 151.46 / -817.74 -511.74 / -362.59 231.96 / 231.96 Lab / Micro Data Result Diagrams: 03/17/21 03:15 03/17/21 03:15 Labs: Laboratory Results - last 24 hr 03/16/21 03:20: Phosphorus 3.2, Magnesium 1.7 03/16/21 14:25: APTT 33.2 03/16/21 20:50: APTT 40.2 H 03/17/21 03:15: Phosphorus 2.8, Magnesium 1.7 03/17/21 03:15: APTT 37.6 H 03/17/21 03:15: WBC 8.6, RBC 2.69 L, Hgb 7.8 L, Hct 24.3 L, MCV 90.3, MCH 29.0, MCHC 32.1, RDW Std Deviation 62.8 H, RDW Coeff of Harjeet 19.1 H, Plt Count 269, MPV 10.3, Immature Gran % (Auto) 0.900, Neut % (Auto) 77.5 H, Lymph % (Auto) 12.4 L, [place] % (Auto) 6.0, Eos % (Auto) 2.6, Baso % (Auto) 0.6, Absolute Neuts (auto) 6.6, Absolute Lymphs (auto) 1.06, Nucleated RBC % 0 03/17/21 03:15: Sodium 146 H, Potassium 2.9 L, Chloride 114 H, Carbon Dioxide 27.0, Anion Gap 5, BUN 14, Creatinine 0.73, Estim Creat Clear Calc 83.36, Est GFR (MDRD) Af Amer 140, Est GFR (MDRD) Non-Af 116, BUN/Creatinine Ratio 19.3, Glucose 121 H, Calcium 7.9 L, Total Bilirubin 0.50, AST 39 H, ALT 84 H, Alkaline Phosphatase 129 H, Total Protein 5.6 L, Albumin 1.2 L, Globulin 4.4 H, Albumin/Globulin Ratio 0.3 L Micro: Microbiology 03/11/21 12:10 Blood Culture (Wb) - Right Forearm Blood Culture - Final No growth in 5 days. 03/11/21 12:15 Blood Culture (Wb) - Left Forearm Blood Culture - Final No growth in 5 days. 03/09/21 07:53 Blood Culture (Wb) - Anticubital Right Blood Culture - Final Coag Negative Staph 03/09/21 07:55 Blood Culture (Wb) - Anticubital Left Blood Culture - Final No growth in 5 days. 03/09/21 07:50 Urine Catheter - Catheter Urine Culture - Final Culture exhibits no growth. 03/07/21 23:00 Sputum, Induced/Lukens Gram Stain - Final 03/07/21 23:00 Sputum, Induced/Lukens Respiratory Culture - Final Mixed normal respiratory héctor. No Streptococcus pneumoniae, beta-hemolytic Streptococcus or Staphylococcus aureus isolated. 03/07/21 06:08 Nasal Secretion SARS-CoV-2 Antigen (Rapid) - Final ABG Data ABG results: ABG 03/17/21 03/17/21 06:46 06:54 Specimen Type ART ART Sample Site R Radial pH 7.43 7.50 H Bicarbonate Actual 24.1 21.3 L Total CO2 25 22 Base Excess 0 -2 O2 Saturation 48 L 93 L O2 % 30 30 ABG pCO2 36.1 27.1 L ABG pO2 25 L* 59 L Vent Mode CPAP/PS CPAP/PS POC PEEP 5 5 POC Pressure Suppt 5 5 Crit Call To/Read Back Yes Physical Exam Const General Appearance: intubated and patient mechanically ventilated HEENT normocephalic and head/scalp atraumatic Mouth: endotracheal tube in place and OG tube in place Eyes PERRL Neck supple General: trachea midline Chest inspection of chest normal Resp normal respiratory effort Effort and Inspection: tachypneic Auscultation: rhonchi lower bilaterally; Negative for rales or wheezes Cardio S1 normal heart sound, S2 normal heart sound, no murmurs, no rub and no gallops Rate: tachycardic GI normal to inspection, nondistended, normoactive bowel sounds Extremity no clubbing, cyanosis or edema Skin no rashes or lesions noted Neuro Sensorium / Orientation: sedated on vent Charges/Coding Procedures Hospitalists Procedures: 58029 Critial Care 1st Hr
--- NOTE | 2021-03-17 09:02 | PN.CARD_ITS ---
Subjective Subjective The patient is now extubated. He does have spontaneous body movements. He was not responding to verbal questioning. Objective Data Vital Signs: Vital Signs Temp Pulse Resp BP Pulse Ox 101.4 F H 110 H 41 H 158/88 H 95 03/17/21 08:00 03/17/21 08:00 03/17/21 08:00 03/17/21 08:00 03/17/21 08:00 Oxygen Flow Rate (L/min) 3 Oxygen Delivery Method Nasal Cannula Weight: 138 lb 7.205 oz Body Mass Index (BMI) 23.6 Intake & Output: Intake and Output for Last 24 Hours 03/15/21 03/16/21 03/17/21 23:59 23:59 23:59 Intake Total 3301.46 / 3357.26 4238.26 / 4387.41 708.70 / 708.70 Output Total 3150 / 4175 4750 / 4750 450 / 450 Balance 151.46 / -817.74 -511.74 / -362.59 258.70 / 258.70 Lab / Micro Data Result Diagrams: 03/17/21 03:15 03/17/21 03:15 Labs: Laboratory Results - last 24 hr 03/16/21 14:25: APTT 33.2 03/16/21 20:50: APTT 40.2 H 03/17/21 03:15: Phosphorus 2.8, Magnesium 1.7 03/17/21 03:15: APTT 37.6 H 03/17/21 03:15: WBC 8.6, RBC 2.69 L, Hgb 7.8 L, Hct 24.3 L, MCV 90.3, MCH 29.0, MCHC 32.1, RDW Std Deviation 62.8 H, RDW Coeff of Harjeet 19.1 H, Plt Count 269, MPV 10.3, Immature Gran % (Auto) 0.900, Neut % (Auto) 77.5 H, Lymph % (Auto) 12.4 L, [place] % (Auto) 6.0, Eos % (Auto) 2.6, Baso % (Auto) 0.6, Absolute Neuts (auto) 6.6, Absolute Lymphs (auto) 1.06, Nucleated RBC % 0 03/17/21 03:15: Sodium 146 H, Potassium 2.9 L, Chloride 114 H, Carbon Dioxide 27.0, Anion Gap 5, BUN 14, Creatinine 0.73, Estim Creat Clear Calc 83.36, Est GFR (MDRD) Af Amer 140, Est GFR (MDRD) Non-Af 116, BUN/Creatinine Ratio 19.3, Glucose 121 H, Calcium 7.9 L, Total Bilirubin 0.50, AST 39 H, ALT 84 H, Alkaline Phosphatase 129 H, Total Protein 5.6 L, Albumin 1.2 L, Globulin 4.4 H, Albumin/Globulin Ratio 0.3 L Micro: Microbiology 03/11/21 12:10 Blood Culture (Wb) - Right Forearm Blood Culture - Final No growth in 5 days. 03/11/21 12:15 Blood Culture (Wb) - Left Forearm Blood Culture - Final No growth in 5 days. ABG Data ABG results: ABG 03/17/21 03/17/21 06:46 06:54 Specimen Type ART ART Sample Site R Radial pH 7.43 7.50 H Bicarbonate Actual 24.1 21.3 L Total CO2 25 22 Base Excess 0 -2 O2 Saturation 48 L 93 L O2 % 30 30 ABG pCO2 36.1 27.1 L ABG pO2 25 L* 59 L Vent Mode CPAP/PS CPAP/PS POC PEEP 5 5 POC Pressure Suppt 5 5 Crit Call To/Read Back Yes Cardiology Labs/Tests 03/16/21 14:25: APTT 33.2 03/16/21 20:50: APTT 40.2 H 03/17/21 03:15: Phosphorus 2.8, Magnesium 1.7 03/17/21 03:15: APTT 37.6 H 03/17/21 03:15: WBC 8.6, RBC 2.69 L, Hgb 7.8 L, Hct 24.3 L, MCV 90.3, MCH 29.0, MCHC 32.1, Plt Count 269, MPV 10.3, Immature Gran % (Auto) 0.900, Neut % (Auto) 77.5 H, Lymph % (Auto) 12.4 L, [place] % (Auto) 6.0, Eos % (Auto) 2.6, Baso % (Auto) 0.6, Absolute Neuts (auto) 6.6, Nucleated RBC % 0 03/17/21 03:15: Sodium 146 H, Potassium 2.9 L, Chloride 114 H, Carbon Dioxide 27.0, Anion Gap 5, BUN 14, Creatinine 0.73, Est GFR (MDRD) Af Amer 140, Est GFR (MDRD) Non-Af 116, BUN/Creatinine Ratio 19.3, Glucose 121 H, Calcium 7.9 L, Total Bilirubin 0.50 03/17/21 06:46: pH 7.43, Bicarbonate Actual 24.1, Base Excess 0, O2 Saturation 48 L, ABG pCO2 36.1, ABG pO2 25 L* 03/17/21 06:54: pH 7.50 H, Bicarbonate Actual 21.3 L, Base Excess -2, O2 Saturation 93 L, ABG pCO2 27.1 L, ABG pO2 59 L Rhythm: Electronic ventricular paced rhythm Physical Exam HEENT normocephalic and head/scalp atraumatic Neck no JVD Resp clear to auscultation bilaterally Auscultation: rhonchi throughout Cardio regular rhythm, S1 normal heart sound and S2 normal heart sound Rate: tachycardic GI normal to inspection, nondistended, normoactive bowel sounds Extremity no pedal edema Assessment & Plan Assessment/Plan (1) History of prosthetic mitral valve: PLAN: The history of mechanical mitral valve prosthesis. He does need to continue AHA antibiotic prophylaxis as well as anticoagulant therapy. His mitral valve has been reassessed by transthoracic echocardiogram and appears to be stable at this time. (2) Presence of permanent cardiac pacemaker: PLAN: The patient also has an underlying permanent pacemaker. This has been followed as an outpatient. It has been interrogated and has been reported as functioning appropriately. (3) Cardiac arrest: PLAN: The patient is reported to presenting to the hospital for nonvascula r conditions and then being found in the emergency department on the floor in cardiopulmonary arrest with ventricular fibrillation requiring ACLS protocol/defibrillation x2 and subsequent mechanical intubation/ventilation and placement in the ICU. He is now extubated. His underlying neurologic status is still uncertain as he does appear to demonstrate spontaneous body movements but does not appear to be responding to verbal questioning. The patient's neurologic status will help guide further cardiovascular noncardiovascular evaluation and care of the patient. (4) Cardiomyopathy: PLAN: The patient's LV systolic function is diminished. This may be secondary to his cardiopulmonary arrest. Is unclear whether this is hypoxic driven versus being related to underlying CAD, etc. At the moment he will continue medical therapy and support as best as possible. It may be reasonable over time to consider a follow-up limited transthoracic echocardiogram to reassess his left ventricle wall motion systolic function to see if it improves as his clinical status changes. Again at some point in time depending upon his overall neurologic status, pulm onary status, etc. consideration be given as to whether or not he is a candidate for evaluation with diagnostic cardiac catheterization. (5) Renal insufficiency: PLAN: The patient's renal function is being followed. His creatinine level is reported at 0.73. His potassium level was reported low at 2.9. It appears he is receiving potassium supplement. (6) Fever: PLAN: The patient has been febrile. His temperature remains 101.3 this morning. It is unclear whether this is related to his cardiopulmonary arrest event and a neurologic event versus an underlying infectious disease related issue. He will continue evaluation care per internal medicine and critical care medicine/pulmonology. His ongoing fever may also play a role into future cardiovascular diagnostic studies especially diagnostic cardiac catheterization. (7) Hyperlipidemia: QUALIFIERS: Hyperlipidemia type: unspecified Qualified Code(s): E78.5 - Hyperlipidemia, unspecified PLAN: The patient should continue risk factor evaluation care as deemed appropriate. (8) Essential hypertension: PLAN: If the patient's blood pressure remains elevated then he may need to be considered for antihypertensive therapy. 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 His hemoglobin level is noted to decrease to 7.8. He is continuing IV heparin with follow-up of his hemoglobin levels. Eventually, depending upon his clinical course, hopefully he can be changed back to his oral anticoagulant which would be warfarin/Coumadin. Addt'l Comments This note was generated using a voice recognition system and there may be incorrect words, spelling or punctuation that were not noted when reviewing the office note prior to saving.
[2021-03-17] MEDS: Potassium Chloride 20mEq/100mL 20 MEQ/100 ML IV.SOLN. 50 MEQ IV BOLUS ×2 (09:49→11:55)
[2021-03-17 10:29] LABS: Partial Thromboplast Time 33.4 Seconds (24.1-36.2)
--- NOTE | 2021-03-17 11:55 | PN.HOSP_ITS ---
Subjective Subjective Extubated today. Objective Data Objective Data Vital Signs: Vital Signs Temp Pulse Resp BP Pulse Ox 38.5 C H 124 H 35 H 177/83 H 94 03/17/21 11:00 03/17/21 11:03 03/17/21 11:00 03/17/21 11:00 03/17/21 11:00 Oxygen Flow Rate (L/min) 3 Oxygen Delivery Method Nasal Cannula Weight: 62.8 kg Body Mass Index (BMI) 23.6 Intake & Output: Intake and Output for Last 24 Hours 03/15/21 03/16/21 03/17/21 23:59 23:59 23:59 Intake Total 3301.46 / 3357.26 4238.26 / 4387.41 832.88 / 832.88 Output Total 3150 / 4175 4750 / 4750 800 / 800 Balance 151.46 / -817.74 -511.74 / -362.59 32.88 / 32.88 Lab / Micro Data Result Diagrams: 03/17/21 03:15 03/17/21 03:15 Labs: Laboratory Results - last 24 hr 03/16/21 14:25: APTT 33.2 03/16/21 20:50: APTT 40.2 H 03/17/21 03:15: Phosphorus 2.8, Magnesium 1.7 03/17/21 03:15: APTT 37.6 H 03/17/21 03:15: WBC 8.6, RBC 2.69 L, Hgb 7.8 L, Hct 24.3 L, MCV 90.3, MCH 29.0, MCHC 32.1, RDW Std Deviation 62.8 H, RDW Coeff of Harjeet 19.1 H, Plt Count 269, MPV 10.3, Immature Gran % (Auto) 0.900, Neut % (Auto) 77.5 H, Lymph % (Auto) 12.4 L, [place] % (Auto) 6.0, Eos % (Auto) 2.6, Baso % (Auto) 0.6, Absolute Neuts (auto) 6.6, Absolute Lymphs (auto) 1.06, Nucleated RBC % 0 03/17/21 03:15: Sodium 146 H, Potassium 2.9 L, Chloride 114 H, Carbon Dioxide 27.0, Anion Gap 5, BUN 14, Creatinine 0.73, Estim Creat Clear Calc 83.36, Est GFR (MDRD) Af Amer 140, Est GFR (MDRD) Non-Af 116, BUN/Creatinine Ratio 19.3, Glucose 121 H, Calcium 7.9 L, Total Bilirubin 0.50, AST 39 H, ALT 84 H, Alkaline Phosphatase 129 H, Total Protein 5.6 L, Albumin 1.2 L, Globulin 4.4 H, Albumin/Globulin Ratio 0.3 L 03/17/21 10:10: APTT 33.4 Micro: Microbiology 03/11/21 12:10 Blood Culture (Wb) - Right Forearm Blood Culture - Final No growth in 5 days. 03/11/21 12:15 Blood Culture (Wb) - Left Forearm Blood Culture - Final No growth in 5 days. 03/09/21 07:53 Blood Culture (Wb) - Anticubital Right Blood Culture - Final Coag Negative Staph 03/09/21 07:55 Blood Culture (Wb) - Anticubital Left Blood Culture - Final No growth in 5 days. 03/09/21 07:50 Urine Catheter - Catheter Urine Culture - Final Culture exhibits no growth. 03/07/21 23:00 Sputum, Induced/Lukens Gram Stain - Final 03/07/21 23:00 Sputum, Induced/Lukens Respiratory Culture - Final Mixed normal respiratory héctor. No Streptococcus pneumoniae, beta-hemolytic Streptococcus or Staphylococcus aureus isolated. 03/07/21 06:08 Nasal Secretion SARS-CoV-2 Antigen (Rapid) - Final ABG Data ABG results: ABG 03/17/21 03/17/21 06:46 06:54 Specimen Type ART ART Sample Site R Radial pH 7.43 7.50 H Bicarbonate Actual 24.1 21.3 L Total CO2 25 22 Base Excess 0 -2 O2 Saturation 48 L 93 L O2 % 30 30 ABG pCO2 36.1 27.1 L ABG pO2 25 L* 59 L Vent Mode CPAP/PS CPAP/PS POC PEEP 5 5 POC Pressure Suppt 5 5 Crit Call To/Read Back Yes Physical Exam Const Constitutional Narrative: awake. groggy. no respiratory distress Resp normal respiratory effort, no retractions, no use of accessory muscles and clear to auscultation bilaterally Cardio regular rate, regular rhythm, S1 normal heart sound and S2 normal heart sound GI normal to inspection, nondistended, normoactive bowel sounds, soft to palpation, non-tender and non-distended Extremity normal to inspection Assessment & Plan Assessment/Plan (1) Acute respiratory failure: QUALIFIERS: Respiratory failure complication: hypoxia and hypercapnia Qualified Code(s): J96.01 - Acute respiratory failure with hypoxia; J96.02 - Acute respiratory failure with hypercapnia (2) Cardiac arrest: PLAN: 1. acute hypoxic and hypercapnic respiratory failure overall better extubated 03/17 2. Vfib arrest cardiology following EF 35% from echocardiogram on the cardiology deferring further cardiac assessment until neurologic condition is further clarified. 3. alcohol withdrawal improved 4. persistent fevers infectious work up negative abx dc'd 5. mechanical MV on heparin gtt 6. VTE prophylaxis: not indicated given he is already anticoagulated Charges/Coding Visit Charges Inpatient E&M: 69592 Subs Hosp L2
[2021-03-17] MEDS: Haloperidol Lactate 5 MG/ML Vial 3 MG IV (13:17)
--- NOTE | 2021-03-17 13:42 | CCN.REFER ---
Social Work SW attended ICU rounds and pt was extubated this morning. After rounds, phone call placed to pt dgt Arianna and to pt dgt Viviana. Both dgts are understanding of pt condition and that he will not be able to return home post hospitalization. Per dgts, pt has been to [facility] previously and they would prefer this SNF. SW will leave list of SNF providers including quality and resource use data and consistent with the patient's preferred geographic region, medical needs and insurance network in pt room for when dgt visits. SW will not start SNF referral yet as pt is not ready for d/c at this time. SW offered support to dgts and will remain available for future needs. HECTOR Carrillo
[2021-03-17] MEDS: Dexmedetomidine 1,000 mcg in 0.9% NS 240 mL 13 MCG CONT INF (16:24)
[2021-03-17] MEDS: Labetalol (Prefilled) 20 MG/4 ML 10 MG IV ×2 (17:04→18:45)
[2021-03-17] MEDS: Furosemide 40 MG/4 ML Vial IV (17:04)
[2021-03-17 17:51] LABS: Partial Thromboplast Time 42.9 Seconds (24.1-36.2)
--- NOTE | 2021-03-17 18:37 | NURSING ---
patient increasingly confused, pulling at wires, attempted to eat pulse ox cord, Bala aware and new orders received.
--- NOTE | 2021-03-17 18:44 | RAD_ITS ---
HISTORY: dyspnea, hypoxia EXAMINATION/TECHNIQUE: XR Chest 1 View: Portable AP upright chest x-ray COMPARISON: 03/08/21 FINDINGS: LINES/DEVICES: Stable transvenous pacemaker. LUNGS: D persistent airspace opacity with improvement in aeration of the right mid and upper lung field. Peripheral opacity in the left lung has increased slightly. No pleural effusion. No pneumothorax. MEDIASTINUM AND CARDIOVASCULAR STRUCTURES: Cardiac silhouette not enlarged. Stable changes of cardiac valve placement. Central airways and mediastinal contour are unremarkable. BONES AND SOFT TISSUES: No acute bony abnormalities. RAD/Chest 1 View (Portable) IMPRESSION: Improving aeration right lung with increased peripheral airspace disease in the left lung. at 2015 Reported and signed by: Adair Garcia MD Electronically Signed: Adair Garcia MD at 20:14 EST Tel , Service support ,
[2021-03-17] MEDS: LORazepam 2 MG/ML Syringe IV (18:45)
[2021-03-17 18:56] LABS: Allen Test Positive; Base Excess 1 mmol/L (-2 to +2); Bicarbonate 23.4 mmol/L (22-26); Blood Gas Specimen Type ART; O2 Delivery Device Cannula; PO2 46 mmHG (75-100); SITE R Radial; SO2 88 % (95-99); Total Carbon Dioxide 24 mmol/L; pH 7.53 (7.35-7.45)
[2021-03-17] MEDS: fentaNYL 100 MCG/2 ML Ampul 25 MCG IV (19:32)
[2021-03-18] VITALS (31 sets, daily range): BP systolic 149–185; BP diastolic 74–104; PULSE 92–123; RESP 40–50; TEMP 38–39; O2SAT 90–98
[2021-03-18 00:36] LABS: Partial Thromboplast Time 53.5 Seconds (24.1-36.2)
[2021-03-18] MEDS: Heparin Injection (Vial) 5,000 UNIT/ML VIAL IV ×2 (01:01→14:34)
[2021-03-18] MEDS: Dexmedetomidine 1,000 mcg in 0.9% NS 240 mL 24.3 MCG CONT INF ×2 (03:36→14:33)
[2021-03-18 03:37] LABS: Absolute Lymphocyte Count 0.88 X10^3/uL (0.83-4.51); Absolute Neutrophil Count 12.2 X10^3/uL (2.0-7.7); Basophil# 0.06 X10^3/uL; Basophil% 0.4 % (0-1); Eosinophil# 0.02 X10^3/uL; Eosinophils% 0.1 % (0-5); Hematocrit 27.4 % (40-54); Hemoglobin 8.6 g/dL (13.0-16.5); Lymphocyte # 0.88 X10^3/ul (0.83-4.51); Lymphocyte % 6.3 % (19-41); Mean Corp Hgb Conc 31.4 g/dL (32-36); Mean Corpuscular Hgb 28.2 pg (27.0-32.0); Mean Corpuscular Volume 89.8 fL (80-94); Mean Platelet Vol. 10.6 fl (6.2-12.0); Monocyte# 0.63 X10^3/uL; Monocyte% 4.5 % (0-10); NRBC Flagged by Analyzer 0.1 % (0-5); Platelet Count 354 K/mm3 (150-450); RBC Distribution Width CV 19.6 % (11.6-14.6); RBC Distribution Width SD 62.3 fl (35.1-43.9); Red Blood Count 3.05 M/mm3 (4.6-6.2); White Blood Count 13.9 K/mm3 (4.4-11.0)
[2021-03-18 03:48] LABS: ALB/GLOB Ratio 0.3 RATIO (0.9-2.4); AST(SGOT) 57 U/L (15-37); Alanine Aminotransfer ALT/SGPT 82 U/L (16-61); Albumin, Serum 1.5 g/dL (3.2-5.0); Alkaline Phosphatase 154 U/L (45-117); Anion Gap 11 (5-15); BUN 15 mg/dL (7-18); BUN/Creat Ratio 18.3 RATIO (10-20); Chloride 114 mmol/L (98-107); Creatinine, Serum 0.82 mg/dL (0.70-1.30); EST Glomerular Filtration Rate 101 mL/min (>60); Est Glom Filt Rate - Afr Amer 122 mL/min (>60); Estimated Creatinine Clearance 74.21 ml/min; Globulin 5.2 g/dL (2.2-4.2); Glucose 156 mg/dL (74-106); Potassium 2.8 mmol/L (3.5-5.1); Protein, Total 6.7 g/dL (6.4-8.2); Sodium Level 149 mmol/L (136-145)
[2021-03-18] MEDS: Potassium Chloride 20mEq/100mL 20 MEQ/100 ML IV.SOLN. 100 MEQ IV BOLUS ×4 (04:25→08:02)
--- NOTE | 2021-03-18 07:03 | PN.CC_ITS ---
Assessment & Plan Assessment/Plan (1) Acute respiratory failure: QUALIFIERS: Respiratory failure complication: hypoxia and hypercapnia Qualified Code(s): J96.01 - Acute respiratory failure with hypoxia; J96.02 - Acute respiratory failure with hypercapnia PLAN: RECOMMENDATIONS: 1. Repeat cultures. Expand antibiotics 2. Wean Precedex as tolerated. Continue Seroquel as ordered. 3. Aggressive pulmonary toileting 4. Speech therapy for swallow evaluation 5. Continue to monitor H&H daily and transfuse if hemoglobin drops below 7 g/dL. 6. Continue heparin infusion as tolerated. 7. Continue PPI therapy twice daily. 8. Continue to challenge with diuretics as tolerated. Aggressive potassium repletion IMPRESSIONS: 1. Acute hypoxemic and hypercarbic respiratory failure status post V. fib cardiac arrest The patient was initially admitted for acute alcohol detoxification and was found unresponsive in V. fib arrest. The patient did receive ACLS with eventual return of spontaneous circulation. He was intubated as a consequence of the aforementioned. The patient will remain on assist control mode of mechanical ventilation. FiO2 and PEEP will be weaned as tolerated. In light of the fact that the patient developed fevers, empiric antimicrobials were initiated. Continue tube feeds as tolerated. Echocardiogram did reveal a depressed ejection fraction at 35%. Patient successfully extubated, but continues to have copious secretions. Unclear if patient is having an element of opiate withdrawal given hypersalivation, tachycardia and agitation. Patient will be given fentanyl as needed. Patient not able to receive Seroquel given swallow issues. Will broaden antibiotics and repeat anderson cultures. ABG yesterday was suggestive of increased AA gradient with hyperventilation 2. Acute kidney injury Resolved. Likely prerenal in etiology/ischemic ATN in the setting of cardiac arrest. Anticipate improvement with stabilization of hemodynamics. Continue to monitor urine output for now. Avoid nephrotoxic medications. No current indication for renal replacement therapy. 3. Acute liver injury Improving. Likely secondary to cardiac arrest and hemodynamic instability leading to hypoperfusion. Anticipate improvement with stabilization of hemodynamics. 4. Hypernatremia/hypokalemia Patient has received significant Lasix over the last 48 hours. May need to reinitiate D5W if worse tomorrow. Potassium and magnesium supplementation as indicated. Clinical suspicion for an element of refeeding syndrome. 5. Acute alcohol withdrawal Continue current sedation regimen including propofol, fentanyl and Precedex. The patient's agitation continues to be a barrier to successful extubation. Plan to continue Seroquel as well. 6. Anemia There is some concern for coffee-ground output from the patient's OG tube. The patient did require transfusion of blood products after his hemoglobin fell to 7.2 g/dL. Posttransfusion, hemoglobin has been stable. Okay to continue heparin at this time. Continue PPI therapy twice daily. 7. History of prosthetic mitral valve/hypertension/hyperlipidemia Complicates care, management, recovery and prognosis. Continue home medications as indicated. TIME: 33 minutes of critical care time, independent of procedures, was spent addressing the patient's acute combined respiratory failure, V. fib cardiac arrest, acute kidney injury, acute liver injury, acute alcohol withdrawal, anemia, review of all data and collaboration with the care team. Subjective Subjective Patient with significant difficulty overnight. Patient has been tachycardic and hypertensive. Patient's oxygen requirements have changed significantly from 3 L after extubation up to 8 L. Patient did have significant fever overnight. Patient has received Haldol, fentanyl and Ativan without significant im provement. Patient continues to have a very productive cough, but chest x-ray was unremarkable. Patient remains on Precedex for agitation. Objective Data Objective Data Vital Signs: Vital Signs Temp Pulse Resp BP Pulse Ox 38.8 C H 118 H 40 H 156/95 H 98 03/18/21 04:00 03/18/21 07:00 03/18/21 07:00 03/18/21 07:00 03/18/21 07:00 Oxygen Flow Rate (L/min) 6 Oxygen Delivery Method Nasal Cannula Weight: 59.9 kg Body Mass Index (BMI) 23.6 Intake & Output: Intake and Output for Last 24 Hours 03/16/21 03/17/21 03/18/21 23:59 23:59 23:59 Intake Total 4238.26 / 4387.41 1528.68 / 1552.98 475.26 / 475.26 Output Total 4750 / 4750 2250 / 2950 1325 / 1325 Balance -511.74 / -362.59 -721.32 / -1397.02 -849.74 / -849.74 Lab / Micro Data Result Diagrams: 03/18/21 03:13 03/18/21 03:13 Labs: Laboratory Results - last 24 hr 03/17/21 10:10: APTT 33.4 03/17/21 17:30: APTT 42.9 H 03/18/21 00:10: APTT 53.5 H 03/18/21 03:13: WBC 13.9 H, RBC 3.05 L, Hgb 8.6 L, Hct 27.4 L, MCV 89.8, MCH 28.2, MCHC 31.4 L, RDW Std Deviation 62.3 H, RDW Coeff of Harjeet 19.6 H, Plt Count 354, MPV 10.6, Immature Gran % (Auto) 0.700, Neut % (Auto) 88.0 H, Lymph % (Auto) 6.3 L, [place] % (Auto) 4.5, Eos % (Auto) 0.1, Baso % (Auto) 0.4, Absolute Neuts (auto) 12.2 H, Absolute Lymphs (auto) 0.88, Nucleated RBC % 0.1 03/18/21 03:13: Sodium 149 H, Potassium 2.8 L, Chloride 114 H, Carbon Dioxide 24.0, Anion Gap 11, BUN 15, Creatinine 0.82, Estim Creat Clear Calc 74.21, Est GFR (MDRD) Af Amer 122, Est GFR (MDRD) Non-Af 101, BUN/Creatinine Ratio 18.3, Glucose 156 H, Calcium 8.0 L, Total Bilirubin 0.80, AST 57 H, ALT 82 H, Alkaline Phosphatase 154 H, Total Protein 6.7, Albumin 1.5 L, Globulin 5.2 H, [place] min/Globulin Ratio 0.3 L Micro: Microbiology 03/11/21 12:10 Blood Culture (Wb) - Right Forearm Blood Culture - Final No growth in 5 days. 03/11/21 12:15 Blood Culture (Wb) - Left Forearm Blood Culture - Final No growth in 5 days. 03/09/21 07:53 Blood Culture (Wb) - Anticubital Right Blood Culture - Final Coag Negative Staph 03/09/21 07:55 Blood Culture (Wb) - Anticubital Left Blood Culture - Final No growth in 5 days. 03/09/21 07:50 Urine Catheter - Catheter Urine Culture - Final Culture exhibits no growth. 03/07/21 23:00 Sputum, Induced/Lukens Gram Stain - Final 03/07/21 23:00 Sputum, Induced/Lukens Respiratory Culture - Final Mixed normal respiratory héctor. No Streptococcus pneumoniae, beta-hemolytic Streptococcus or Staphylococcus aureus isolated. 03/07/21 06:08 Nasal Secretion SARS-CoV-2 Antigen (Rapid) - Final ABG Data ABG results: ABG 03/17/21 18:49 Specimen Type ART Sample Site R Radial pH 7.53 H Bicarbonate Actual 23.4 Total CO2 24 Base Excess 1 O2 Saturation 88 L ABG pCO2 28.0 L ABG pO2 46 L Lev Test Positive O2 Delivery Device Cannula Liter Flow 7.0 Radiography Diagnostic Testing: Radiology Impression Chest X-Ray 03/17/21 18:44 IMPRESSION: Improving aeration right lung with increased peripheral airspace disease in the left lung. at 2015 Reported and signed by: Adair Garcia MD Electronically Signed: Adair Garcia MD at 20:14 EST Tel , Service support , Physical Exam Const Constitutional Narrative: Appears older than stated age. Makes eye contact, but not interactive General Appearance: in distress Positive for moderate, anxious, uncooperative and disheveled HEENT normocephalic and head/scalp atraumatic HEENT Narrative: Poor dentition Eyes PERRL Neck supple General: trachea midline Chest inspection of chest normal Chest: symmetrical chest wall rise; Negative for crepitus Resp Effort and Inspection: tachypneic; Negative for grunting or stridor Auscultation: rhonchi lower bilaterally; Negative for rales or wheezes Cardio S1 normal heart sound, S2 normal heart sound, no murmurs, no rub and no gallops Rate: tachycardic GI normal to inspection, nondistended, normoactive bowel sounds Extremity no clubbing, cyanosis or edema Skin no rashes or lesions noted Neuro Sensorium / Orientation: sedated on vent Charges/Coding Procedures Hospitalists Procedures: 37636 Critial Care 1st Hr
[2021-03-18 07:11] LABS: Partial Thromboplast Time 59.6 Seconds (24.1-36.2)
[2021-03-18 07:49] LABS: Blood Gas Specimen Type VEN
--- NOTE | 2021-03-18 09:00 | PN.CARD_ITS ---
Subjective Subjective The patient remains sedated at this time. He does appear to shift his eyes upon verbal stimulation but he does not answer to verbal questioning. Objective Data Vital Signs: Vital Signs Temp Pulse Resp BP Pulse Ox 101.6 F H 113 H 43 H 164/104 H 92 03/18/21 08:00 03/18/21 08:00 03/18/21 08:00 03/18/21 08:00 03/18/21 08:00 Oxygen Flow Rate (L/min) 6 Oxygen Delivery Method Nasal Cannula Weight: 132 lb 0.91 oz Body Mass Index (BMI) 23.6 Intake & Output: Intake and Output for Last 24 Hours 03/16/21 03/17/21 03/18/21 23:59 23:59 23:59 Intake Total 4238.26 / 4387.41 1528.68 / 1552.98 599.56 / 599.56 Output Total 4750 / 4750 2250 / 2950 1325 / 1325 Balance -511.74 / -362.59 -721.32 / -1397.02 -725.44 / -725.44 Lab / Micro Data Result Diagrams: 03/18/21 03:13 03/18/21 03:13 Labs: Laboratory Results - last 24 hr 03/17/21 10:10: APTT 33.4 03/17/21 17:30: APTT 42.9 H 03/18/21 00:10: APTT 53.5 H 03/18/21 03:13: WBC 13.9 H, RBC 3.05 L, Hgb 8.6 L, Hct 27.4 L, MCV 89.8, MCH 28.2, MCHC 31.4 L, RDW Std Deviation 62.3 H, RDW Coeff of Harjeet 19.6 H, Plt Count 354, MPV 10.6, Immature Gran % (Auto) 0.700, Neut % (Auto) 88.0 H, Lymph % (Auto) 6.3 L, [place] % (Auto) 4.5, Eos % (Auto) 0.1, Baso % (Auto) 0.4, Absolute Neuts (auto) 12.2 H, Absolute Lymphs (auto) 0.88, Nucleated RBC % 0.1 03/18/21 03:13: Sodium 149 H, Potassium 2.8 L, Chloride 114 H, Carbon Dioxide 24.0, Anion Gap 11, BUN 15, Creatinine 0.82, Estim Creat Clear Calc 74.21, Est GFR (MDRD) Af Amer 122, Est GFR (MDRD) Non-Af 101, BUN/Creatinine Ratio 18.3, Glucose 156 H, Calcium 8.0 L, Total Bilirubin 0.80, AST 57 H, ALT 82 H, Alkaline Phosphatase 154 H, Total Protein 6.7, Albumin 1.5 L, Globulin 5.2 H, Albumin/Globulin Ratio 0.3 L 03/18/21 06:54: APTT 59.6 H ABG Data ABG results: ABG 03/17/21 03/17/21 06:46 18:49 Specimen Type BLAIR ART Sample Site R Radial pH 7.53 H Bicarbonate Actual 23.4 Total CO2 24 Base Excess 1 O2 Saturation 88 L ABG pCO2 28.0 L ABG pO2 46 L Lev Test Positive O2 Delivery Device Cannula Liter Flow 7.0 Cardiology Labs/Tests 03/17/21 10:10: APTT 33.4 03/17/21 17:30: APTT 42.9 H 03/17/21 18:49: pH 7.53 H, Bicarbonate Actual 23.4, Base Excess 1, O2 Saturation 88 L, ABG pCO2 28.0 L, ABG pO2 46 L, Lev Test Positive 03/18/21 00:10: APTT 53.5 H 03/18/21 03:13: WBC 13.9 H, RBC 3.05 L, Hgb 8.6 L, Hct 27.4 L, MCV 89.8, MCH 28.2, MCHC 31.4 L, Plt Count 354, MPV 10.6, Immature Gran % (Auto) 0.700, Neut % (Auto) 88.0 H, Lymph % (Auto) 6.3 L, [place] % (Auto) 4.5, Eos % (Auto) 0.1, Baso % (Auto) 0.4, Absolute Neuts (auto) 12.2 H, Nucleated RBC % 0.1 03/18/21 03:13: Sodium 149 H, Potassium 2.8 L, Chloride 114 H, Carbon Dioxide 24.0, Anion Gap 11, BUN 15, Creatinine 0.82, Est GFR (MDRD) Af Amer 122, Est GFR (MDRD) Non-Af 101, BUN/Creatinine Ratio 18.3, Glucose 156 H, Calcium 8.0 L, Total Bilirubin 0.80 03/18/21 06:54: APTT 59.6 H Rhythm: Electronic ventricular paced Radiography Diagnostic Testing: Radiology Impression Chest X-Ray 03/17/21 18:44 IMPRESSION: Improving aeration right lung with increased peripheral airspace disease in the left lung. at 2015 Reported and signed by: Adair Garcia MD Electronically Signed: Adair Garcia MD at 20:14 EST Tel , Service support , Physical Exam Narrative Post cardiac arrest with VOlive barton shocked twice in the ER, intubated Cardiac exam and mechanical mitral valve prosthesis Chest exam bilateral inspiratory rales HEENT normocephalic and head/scalp atraumatic Neck no JVD Resp clear to auscultation bilaterally Auscultation: rhonchi throughout Cardio regular rhythm, S1 normal heart sound and S2 normal heart sound Rate: tachycardic GI normal to inspection, nondistended, normoactive bowel sounds Extremity no pedal edema Assessment & Plan Assessment/Plan (1) History of prosthetic mitral valve: PLAN: The history of mechanical mitral valve prosthesis. He does need to continue AHA antibiotic prophylaxis as well as anticoagulant therapy. His mitral valve has been reassessed by transthoracic echocardiogram and appears to be stable at this time. (2) Presence of permanent cardiac pacemaker: PLAN: The patient also has an underlying permanent pacemaker. This has been followed as an outpatient. It has been interrogated and has been reported as functioning appropriately. (3) Cardiac arrest: PLAN: The patient is reported to presenting to the hospital for nonvascular conditions and then being found in the emergency department on the floor in cardiopulmonary arrest with ventricular fibrillation requiring ACLS protocol/defibrillation x2 and subsequent mechanical intubation/ventilation and placement in the ICU. He is now extubated. As noted above, he does appear to shift his eyes upon verbal stimulation but he does not answer to verbal questioning. The patient's neurologic status will help guide further cardiovascular noncardiovascular evaluation and care of the patient. (4) Cardiomyopathy: PLAN: The patient's LV systolic function is diminished. This may be secondary to his cardiopulmonary arrest. Is unclear whether this is hypoxic driven versus being related to underlying CAD, etc. At the moment he will continue medical therapy and support as best as possible. A limited echocardiogram will be requested to reassess his left ventricular wall motion and systolic function now that he is extubated. Again at some point in time depending upon his overall neurologic status, pulmonary status, etc. consideration be given as to whether or not he is a candidate for evaluation with diagnostic cardiac catheterization. (5) Renal insufficiency: PLAN: The patient's renal function is being followed. His creatinine level is reported at 0.82. His potassium level was reported low at 2.8. He continues to require potassium supplementation. (6) Fever: PLAN: The patient has been febrile. His temperature remains 101.6 this morning. It is unclear whether this is related to his cardiopulmonary arrest event and a neurologic event versus an underlying infectious disease related issue. He will continue evaluation care per internal medicine and critical care medicine/pulmonology. His ongoing fever may also play a role into future cardiovascular diagnostic studies especially diagnostic cardiac catheterization. (7) Hyperlipidemia: QUALIFIERS: Hyperlipidemia type: unspecified Qualified Code(s): E78.5 - Hyperlipidemia, unspecified PLAN: The patient should continue risk factor evaluation care as deemed appropriate. (8) Essential hypertension: PLAN: The patient's blood pressure will be followed for the need for medical management. (9) halfway current use of anticoagulant: PLAN: The patient has been on long-term anticoagulant therapy secondary to his underlying mechanical mitral valve prosthesis. His hemoglobin level today is 8.6. He is continuing IV heparin with follow-up of his hemoglobin levels. Eventually, depending upon his clinical course, hopefully he can be changed back to his oral anticoagulant which would be warfarin/Coumadin. Addt'l Comments This note was generated using a voice recognition system and there may be incorrect words, spelling or punctuation that were not noted when reviewing the office note prior to saving.
--- NOTE | 2021-03-18 09:04 | ECHOLC_ITS ---
Reason For Study: Cardiomyopathy Procedure This was a limited 2D transthoracic echocardiogram. The study was technically difficult. Contrast injection was performed. Limited views were obtained. Exam performed portable in ICU/CCU. Left Ventricle Based upon the 2D echocardiographic and contrast enhanced images obtained there appears to be grossly normal left ventricular size, wall motion, and systolic function. The estimated ejection fraction is 60 %. Paced septal motion. Unable to assess diastolic dysfunction. Right Ventricle Normal RV size. ICD or pacer leads identified within the right ventricle. Normal systolic function. Atria The left atrium is mildly enlarged. Normal right atrium. ICD or pacer leads identified within the right atrium. Mitral Valve Stable appearing mechanical mitral valve apparatus. Tricuspid Valve Normal tricuspid valve. Aortic Valve Trisinus/trileaflet aortic valve. Mild focal aortic valve calcification. Pulmonic Valve The pulmonic valve is not well visualized. Great Vessels Normal sized aortic root. Pericardium/Pleural No pericardial effusion. Medication Diluted definity 2ml given slow IV push to enhance endocardial definition. MMode/2D Measurements & Calculations LVIDd: 4.1 cm IVSd: 1.3 cm Ao root diam: 2.9 cm LVIDs: 2.9 cm LVPWd: 0.96 cm FS: 30.5 % LVAd ap4: 37.8 cm2 LVAd ap2: 26.0 cm2 SV(MOD-sp4): 66.1 ml LVLd ap4: 9.6 cm LVLd ap2: 7.9 cm EDV(MOD-sp4): 127.9 ml EDV(MOD-sp2): 73.0 ml EDV(sp4-el): 126.0 ml EDV(sp2-el): 72.7 ml LVAs ap4: 25.4 cm2 LVAs ap2: 21.1 cm2 LVLs ap4: 8.7 cm LVLs ap2: 8.0 cm ESV(MOD-sp4): 61.9 ml ESV(MOD-sp2): 49.1 ml ESV(sp4-el): 63.2 ml ESV(sp2-el): 47.3 ml EF(MOD-sp4): 51.6 % EF(MOD-sp2): 32.8 % EF(sp4-el): 49.8 % SV(MOD-sp2): 23.9 ml SV(sp4-el): 62.8 ml ECHO/Echo Limited w/Contrast Interpretation Summary The study was technically difficult. Contrast injection was performed. Limited views were obtained. Based upon the 2D echocardiographic and contrast enhanced images obtained there appears to be grossly normal left ventricular size, wall motion, and systolic function. The estimated ejection fraction is 60 %. The left atrium is mildly enlarged. Stable appearing mechanical mitral valve apparatus. Mild focal aortic valve calcification. Unable to assess diastolic dysfunction. ICD or pacer leads identified within the right atrium ICD or pacer leads identified within the right ventricle. Ordering Physician: Samir Medina Referring Physician: Bertha Murillo Performed By: Deisy Fernandez RDCS
[2021-03-18] MEDS: CHLORHEXIDINE GLUC 2% CLOTH 1 EACH TOWELETTE TOPICAL (09:43)
[2021-03-18] MEDS: fentaNYL 100 MCG/2 ML Ampul 50 MCG IV (09:49)
[2021-03-18] MEDS: Piperacil/Tazobactam 3.375 GM Q8 PREMIX IV ×2 (11:20→23:36)
--- NOTE | 2021-03-18 13:18 | PCM.PN.HOSP ---
Subjective Subjective Agitation overnight requiring chemical sedation. Still on dexmedetomidine gtt. Objective Data Objective Data Vital Signs: Vital Signs Temp Pulse Resp BP Pulse Ox 39.0 C H 122 H 40 H 160/74 H 93 03/18/21 12:00 03/18/21 12:00 03/18/21 12:00 03/18/21 12:00 03/18/21 12:00 Oxygen Flow Rate (L/min) 6 Oxygen Delivery Method Nasal Cannula Weight: 59.9 kg Body Mass Index (BMI) 23.6 Intake & Output: Intake and Output for Last 24 Hours 03/16/21 03/17/21 03/18/21 23:59 23:59 23:59 Intake Total 4238.26 / 4387.41 1528.68 / 1552.98 952.36 / 952.36 Output Total 4750 / 4750 2250 / 2950 1625 / 1625 Balance -511.74 / -362.59 -721.32 / -1397.02 -672.64 / -672.64 Lab / Micro Data Result Diagrams: 03/18/21 03:13 03/18/21 03:13 Labs: Laboratory Results - last 24 hr 03/17/21 17:30: APTT 42.9 H 03/18/21 00:10: APTT 53.5 H 03/18/21 03:13: WBC 13.9 H, RBC 3.05 L, Hgb 8.6 L, Hct 27.4 L, MCV 89.8, MCH 28.2, MCHC 31.4 L, RDW Std Deviation 62.3 H, RDW Coeff of Harjeet 19.6 H, Plt Count 354, MPV 10.6, Immature Gran % (Auto) 0.700, Neut % (Auto) 88.0 H, Lymph % (Auto) 6.3 L, [place] % (Auto) 4.5, Eos % (Auto) 0.1, Baso % (Auto) 0.4, Absolute Neuts (auto) 12.2 H, Absolute Lymphs (auto) 0.88, Nucleated RBC % 0.1 03/18/21 03:13: Sodium 149 H, Potassium 2.8 L, Chloride 114 H, Carbon Dioxide 24.0, Anion Gap 11, BUN 15, Creatinine 0.82, Estim Creat Clear Calc 74.21, Est GFR (MDRD) Af Amer 122, Est GFR (MDRD) Non-Af 101, BUN/Creatinine Ratio 18.3, Glucose 156 H, Calcium 8.0 L, Total Bilirubin 0.80, AST 57 H, ALT 82 H, Alkaline Phosphatase 154 H, Total Protein 6.7, Albumin 1.5 L, Globulin 5.2 H, Albumin/Globulin Ratio 0.3 L 03/18/21 06:54: APTT 59.6 H Micro: Microbiology 03/11/21 12:10 Blood Culture (Wb) - Right Forearm Blood Culture - Final No growth in 5 days. 03/11/21 12:15 Blood Culture (Wb) - Left Forearm Blood Culture - Final No growth in 5 days. 03/09/21 07:53 Blood Culture (Wb) - Anticubital Right Blood Culture - Final Coag Negative Staph 03/09/21 07:55 Blood Culture (Wb) - Anticubital Left Blood Culture - Final No growth in 5 days. 03/09/21 07:50 Urine Catheter - Catheter Urine Culture - Final Culture exhibits no growth. 03/07/21 23:00 Sputum, Induced/Lukens Gram Stain - Final 03/07/21 23:00 Sputum, Induced/Lukens Respiratory Culture - Final Mixed normal respiratory héctor. No Streptococcus pneumoniae, beta-hemolytic Streptococcus or Staphylococcus aureus isolated. 03/07/21 06:08 Nasal Secretion SARS-CoV-2 Antigen (Rapid) - Final ABG Data ABG results: ABG 03/17/21 03/17/21 06:46 18:49 Specimen Type BLAIR ART Sample Site R Radial pH 7.53 H Bicarbonate Actual 23.4 Total CO2 24 Base Excess 1 O2 Saturation 88 L ABG pCO2 28.0 L ABG pO2 46 L Lev Test Positive O2 Delivery Device Cannula Liter Flow 7.0 Radiography Diagnostic Testing: Radiology Impression Chest X-Ray 03/17/21 18:44 IMPRESSION: Improving aeration right lung with increased peripheral airspace disease in the left lung. at 2015 Reported and signed by: Adair Garcia MD Electronically Signed: Adair Garcia MD at 20:14 EST Tel , Service support , Physical Exam Const Constitutional Narrative: confused. mumbles word incoherent. Resp normal respiratory effort, no use of accessory muscles and clear to auscultation bilaterally Cardio regular rate, regular rhythm, S1 normal heart sound and S2 normal heart sound GI normal to inspection, nondistended, normoactive bowel sounds, soft to palpation, non-tender and non-distended Assessment & Plan Assessment/Plan (1) Acute respiratory failure: QUALIFIERS: Respiratory failure complication: hypoxia and hypercapnia Qualified Code(s): J96.01 - Acute respiratory failure with hypoxia; J96.02 - Acute respiratory failure with hypercapnia (2) Cardiac arrest: PLAN: 1. acute hypoxic and hypercapnic respiratory failure overall better extubated 03/17 2. Vfib arrest cardiology following EF 35% from echocardiogram on the cardiology deferring further cardiac assessment until neurologic condition is further clarified. 3. Delirium ongoing unclear etiology: DTs/alcohol withdrawal, anoxic encpephalopathy, ICU psychosis dexmedetomidine, quetiapine, 4. persistent fevers previous infectious work up negative pip/tazo started repeat infectious work up underway. 5. mechanical MV on heparin gtt, consider weight-based enoxaparin 6. VTE prophylaxis: not indicated given he is already anticoagulated Charges/Coding Visit Charges Inpatient E&M: 16880 Subs Hosp L2
[2021-03-18 13:31] LABS: Partial Thromboplast Time 45.7 Seconds (24.1-36.2)
[2021-03-18] MEDS: TITRATION PARAMETER CHANGE 1 EACH IV (14:43)
[2021-03-18] MEDS: Labetalol (Prefilled) 20 MG/4 ML IV ×2 (14:49→23:44)
[2021-03-18] MEDS: 0.9% Saline Lock 10 ML Syringe IV (14:49)
[2021-03-19] VITALS (30 sets, daily range): BP systolic 111–174; BP diastolic 55–124; PULSE 46–119; RESP 29–53; TEMP 37.3–38.7; O2SAT 88–99
[2021-03-19] MEDS: Dexmedetomidine 1,000 mcg in 0.9% NS 240 mL 22.5 MCG CONT INF ×2 (01:38→13:46)
[2021-03-19 03:37] LABS: Partial Thromboplast Time 55.2 Seconds (24.1-36.2)
[2021-03-19] MEDS: Piperacil/Tazobactam 3.375 GM Q8 PREMIX IV ×3 (05:15→21:38)
--- NOTE | 2021-03-19 06:55 | PN.CC_ITS ---
Assessment & Plan Assessment/Plan (1) Acute respiratory failure: QUALIFIERS: Respiratory failure complication: hypoxia and hypercapnia Qualified Code(s): J96.01 - Acute respiratory failure with hypoxia; J96.02 - Acute respiratory failure with hypercapnia PLAN: RECOMMENDATIONS: 1. Await repeat cultures. Continue expanded antibiotics 2. Wean Precedex as tolerated. Continue Seroquel as ordered once able to swallow. 3. Aggressive pulmonary toileting 4. Speech therapy for swallow recommendations 5. Continue to monitor H&H daily and transfuse if hemoglobin drops below 7 g/dL. 6. Continue heparin infusion as tolerated. 7. Continue PPI therapy twice daily. 8. Continue to challenge with diuretics as tolerated. Repeat labs ordered IMPRESSIONS: 1. Acute hypoxemic and hypercarbic respiratory failure status post V. fib cardiac arrest The patient was initially admitted for acute alcohol detoxification and was found unresponsive in V. fib arrest. The patient did receive ACLS with eventual return of spontaneous circulation. He was intubated as a consequence of the aforementioned. The patient will remain on assist control mode of mechanical ventilation. FiO2 and PEEP will be weaned as tolerated. In light of the fact that the patient developed fevers, empiric antimicrobials were initiated. Continue tube feeds as tolerated. Echocardiogram did reveal a depressed ejection fraction at 35%. Patient successfully extubated, but continues to have copious secretions. Unclear if patient is having an element of opiate withdrawal given hypersalivation, tachycardia and agitation. Patient will be given fentanyl as needed. Patient not able to receive Seroquel given swallow issues. Patient on broaden antibiotics as of 03/18/2021. Still requiring NT suctioning intermittently secondary to secretions. 2. Acute kidney injury Resolved. Likely prerenal in etiology/ischemic ATN in the setting of cardiac arrest. Anticipate improvement with stabilization of hemodynamics. Continue to monitor urine output for now. Avoid nephrotoxic medications. No current indication for renal replacement therapy. 3. Acute liver injury Improving. Likely secondary to cardiac arrest and hemodynamic instability leading to hypoperfusion. Anticipate improvement with stabilization of hemodynamics. 4. Hypernatremia/hypokalemia Patient has received significant Lasix over the last 48 hours. May need to reinitiate D5W pending today's labs. Potassium and magnesium supplementation as indicated. Clinical suspicion for an element of refeeding syndrome. 5. Acute alcohol withdrawal Continue current sedation regimen including propofol, fentanyl and Precedex. The patient's agitation continues to be a barrier to successful extubation. Plan to continue Seroquel as well. 6. Anemia There is some concern for coffee-ground output from the patient's OG tube. The patient did require transfusion of blood products after his hemoglobin fell to 7.2 g/dL. Posttransfusion, hemoglobin has been stable. Okay to continue heparin at this time. Continue PPI therapy twice daily. 7. History of prosthetic mitral valve/hypertension/hyperlipidemia Complicates care, management, recovery and prognosis. Continue home medications as indicated. TIME: 31 minutes of critical care time, independent of procedures, was spent addressing the patient's acute combined respiratory failure, V. fib cardiac arrest, acute kidney injury, acute liver injury, acute alcohol withdrawal, anemia, review of all data and collaboration with the care team. Subjective Subjective Patient did okay overnight. Patient remains on Precedex drip at maximum doses. Patient has been persistently febrile and tachycardic. Patient does follow some simple commands, but is not very interactive. Patient continues to have copious secretions despite change in antibiotics. Patient remains n.p.o. Objective Data Objective Data Vital Signs: Vital Signs Temp Pulse Resp BP Pulse Ox 38.6 C H 115 H 44 H 167/82 H 95 03/19/21 06:00 03/19/21 06:00 03/19/21 06:00 03/19/21 06:00 03/19/21 06:00 Oxygen Flow Rate (L/min) 10 Oxygen Delivery Method Nasal Cannula Weight: 60.1 kg Body Mass Index (BMI) 23.6 Intake & Output: Intake and Output for Last 24 Hours 03/17/21 03/18/21 03/19/21 23:59 23:59 23:59 Intake Total 1528.68 / 1552.98 1641.85 / 1664.35 241.14 / 241.14 Output Total 2250 / 2950 1975 / 2375 700 / 700 Balance -721.32 / -1397.02 -333.15 / -710.65 -458.86 / -458.86 Lab / Micro Data Result Diagrams: 03/18/21 03:13 03/18/21 03:13 Labs: Laboratory Results - last 24 hr 03/18/21 06:54: APTT 59.6 H 03/18/21 13:10: APTT 45.7 H 03/18/21 20:45: APTT 69.0 H 03/19/21 03:00: APTT 55.2 H Micro: Microbiology 03/18/21 13:00 Sputum, Induced/Lukens Gram Stain - Final 03/11/21 12:10 Blood Culture (Wb) - Right Forearm Blood Culture - Final No growth in 5 days. 03/11/21 12:15 Blood Culture (Wb) - Left Forearm Blood Culture - Final No growth in 5 days. 03/09/21 07:53 Blood Culture (Wb) - Anticubital Right Blood Culture - Final Coag Negative Staph 03/09/21 07:55 Blood Culture (Wb) - Anticubital Left Blood Culture - Final No growth in 5 days. 03/09/21 07:50 Urine Catheter - Catheter Urine Culture - Final Culture exhibits no growth. 03/07/21 23:00 Sputum, Induced/Lukens Gram Stain - Final 03/07/21 23:00 Sputum, Induced/Lukens Respiratory Culture - Final Mixed normal respiratory héctor. No Streptococcus pneumoniae, beta-hemolytic Streptococcus or Staphylococcus aureus isolated. 03/07/21 06:08 Nasal Secretion SARS-CoV-2 Antigen (Rapid) - Final ABG Data ABG results: ABG 03/17/21 06:46 Specimen Type BLAIR Radiography Diagnostic Testing: Radiology Impression Echocardiogram 03/18/21 09:04 Interpretation Summary The study was technically difficult. Contrast injection was performed. Limited views were obtained. Based upon the 2D echocardiographic and contrast enhanced images obtained there appears to be grossly normal left ventricular size, wall motion, and systolic function. The estimated ejection fraction is 60 %. The left atrium is mildly enlarged. Stable appearing mechanical mitral valve apparatus. Mild focal aortic valve calcification. Unable to assess diastolic dysfunction. ICD or pacer leads identified within the right atrium ICD or pacer leads identified within the right ventricle. Ordering Physician: Samir Medina Referring Physician: Bertha Murillo Performed By: Deisy Fernandez RDCS Physical Exam Const Constitutional Narrative: Appears older than stated age. Makes eye contact, but not actively conversing General Appearance: in distress Positive for moderate, anxious, uncooperative and disheveled HEENT normocephalic and head/scalp atraumatic HEENT Narrative: Poor dentition Eyes PERRL Neck supple General: trachea midline Chest inspection of chest normal Chest: symmetrical chest wall rise; Negative for crepitus Resp Effort and Inspection: tachypneic; Negative for grunting or stridor Auscultation: rhonchi lower bilaterally; Negative for rales or wheezes Cardio S1 normal heart sound, S2 normal heart sound, no murmurs, no rub and no gallops Rate: tachycardic GI normal to inspection, nondistended, normoactive bowel sounds Extremity no clubbing, cyanosis or edema Skin no rashes or lesions noted Neuro Sensorium / Orientation: sedated on vent Charges/Coding Procedures Hospitalists Procedures: [id number] Critial Care 1st Hr
[2021-03-19 09:11] LABS: Absolute Lymphocyte Count 0.98 X10^3/uL (0.83-4.51); Absolute Neutrophil Count 11.3 X10^3/uL (2.0-7.7); Basophil# 0.06 X10^3/uL; Basophil% 0.5 % (0-1); Eosinophil# 0.01 X10^3/uL; Eosinophils% 0.1 % (0-5); Hematocrit 26.8 % (40-54); Hemoglobin 8.4 g/dL (13.0-16.5); Lymphocyte # 0.98 X10^3/ul (0.83-4.51); Lymphocyte % 7.4 % (19-41); Mean Corp Hgb Conc 31.3 g/dL (32-36); Mean Corpuscular Hgb 29.5 pg (27.0-32.0); Mean Platelet Vol. 10.3 fl (6.2-12.0); Monocyte# 0.78 X10^3/uL; Monocyte% 5.9 % (0-10); NRBC Flagged by Analyzer 0.2 % (0-5); Neutrophil # 11.31 X10^3/uL (2.7-7.7); Neutrophil % 85.6 % (47-70); POSITIVE MORPHOLOGY YES; Platelet Count 403 K/mm3 (150-450); RBC Distribution Width SD 67.1 fl (35.1-43.9); Red Blood Count 2.85 M/mm3 (4.6-6.2); White Blood Count 13.2 K/mm3 (4.4-11.0)
[2021-03-19 09:20] LABS: Differential Indicated SCAN CRITERIA MET
[2021-03-19 09:22] LABS: Anion Gap 8 (5-15); BUN 22 mg/dL (7-18); BUN/Creat Ratio 22.9 RATIO (10-20); Chloride 125 mmol/L (98-107); Creatinine, Serum 0.96 mg/dL (0.70-1.30); EST Glomerular Filtration Rate 84 mL/min (>60); Est Glom Filt Rate - Afr Amer 102 mL/min (>60); Estimated Creatinine Clearance 63.39 ml/min; Glucose 154 mg/dL (74-106); Magnesium 1.9 mg/dL (1.6-2.6); Phosphorus 3.1 mg/dL (2.5-4.9); Potassium 2.8 mmol/L (3.5-5.1); Sodium Level 158 mmol/L (136-145)
[2021-03-19 09:37] LABS: Anisocytosis 2+; Differential Comment SCANNED; Polychromasia RARE
[2021-03-19] MEDS: 0.9% Saline Lock 10 ML Syringe IV ×2 (09:37→17:08)
[2021-03-19] MEDS: Potassium Chloride 20mEq/100mL 20 MEQ/100 ML IV.SOLN. 100 MEQ IV BOLUS ×4 (11:24→15:02)
--- NOTE | 2021-03-19 13:20 | PCM.PN.HOSP ---
Subjective Subjective Still agitated and confused. Not managing his secretions. Objective Data Objective Data Vital Signs: Vital Signs Temp Pulse Resp BP Pulse Ox 37.7 C H 113 H 46 H 162/92 H 96 03/19/21 12:00 03/19/21 13:00 03/19/21 13:00 03/19/21 13:00 03/19/21 13:00 Oxygen Flow Rate (L/min) 8 Oxygen Delivery Method Nasal Cannula Weight: 60.1 kg Body Mass Index (BMI) 23.6 Intake & Output: Intake and Output for Last 24 Hours 03/17/21 03/18/21 03/19/21 23:59 23:59 23:59 Intake Total 1528.68 / 1552.98 1641.85 / 1664.35 658.74 / 658.74 Output Total 2250 / 2950 1975 / 2375 700 / 700 Balance -721.32 / -1397.02 -333.15 / -710.65 -41.26 / -41.26 Lab / Micro Data Result Diagrams: 03/19/21 09:00 03/19/21 09:00 Labs: Laboratory Results - last 24 hr 03/18/21 13:10: APTT 45.7 H 03/18/21 20:45: APTT 69.0 H 03/19/21 03:00: APTT 55.2 H 03/19/21 09:00: WBC 13.2 H, RBC 2.85 L, Hgb 8.4 L, Hct 26.8 L, MCV 94.0, MCH 29.5, MCHC 31.3 L, RDW Std Deviation 67.1 H, RDW Coeff of Harjeet 20.0 H, Plt Count 403, MPV 10.3, Immature Gran % (Auto) 0.500, Neut % (Auto) 85.6 H, Lymph % (Auto) 7.4 L, [place] % (Auto) 5.9, Eos % (Auto) 0.1, Baso % (Auto) 0.5, Absolute Neuts (auto) 11.3 H, Absolute Lymphs (auto) 0.98, Nucleated RBC % 0.2, Differential Comment SCANNED, Polychromasia RARE, Anisocytosis 2+ 03/19/21 09:00: Sodium 158 H, Potassium 2.8 L, Chloride 125 H, Carbon Dioxide 25.0, Anion Gap 8, BUN 22 H, Creatinine 0.96, Estim Creat Clear Calc 63.39, Est GFR (MDRD) Af Amer 102, Est GFR (MDRD) Non-Af 84, BUN/Creatinine Ratio 22.9 H, Glucose 154 H, Calcium 8.0 L, Phosphorus 3.1, Magnesium 1.9 Micro: Microbiology 03/18/21 13:00 Sputum, Induced/Lukens Gram Stain - Final 03/18/21 13:00 Sputum, Induced/Lukens Respiratory Culture - Preliminary GNR Poss Pseudomonas sp 03/11/21 12:10 Blood Culture (Wb) - Right Forearm Blood Culture - Final No growth in 5 days. 03/11/21 12:15 Blood Culture (Wb) - Left Forearm Blood Culture - Final No growth in 5 days. 03/09/21 07:53 Blood Culture (Wb) - Anticubital Right Blood Culture - Final Coag Negative Staph 03/09/21 07:55 Blood Culture (Wb) - Anticubital Left Blood Culture - Final No growth in 5 days. 03/09/21 07:50 Urine Catheter - Catheter Urine Culture - Final Culture exhibits no growth. 03/07/21 23:00 Sputum, Induced/Lukens Gram Stain - Final 03/07/21 23:00 Sputum, Induced/Lukens Respiratory Culture - Final Mixed normal respiratory héctor. No Streptococcus pneumoniae, beta-hemolytic Streptococcus or Staphylococcus aureus isolated. 03/07/21 06:08 Nasal Secretion SARS-CoV-2 Antigen (Rapid) - Final Radiography Diagnostic Testing: Radiology Impression Echocardiogram 03/18/21 09:04 Interpretation Summary The study was technically difficult. Contrast injection was performed. Limited views were obtained. Based upon the 2D echocardiographic and contrast enhanced images obtained there appears to be grossly normal left ventricular size, wall motion, and systolic function. The estimated ejection fraction is 60 %. The left atrium is mildly enlarged. Stable appearing mechanical mitral valve apparatus. Mild focal aortic valve calcification. Unable to assess diastolic dysfunction. ICD or pacer leads identified within the right atrium ICD or pacer leads identified within the right ventricle. Ordering Physician: Samir Medina Referring Physician: Bertha Murillo Performed By: Deisy Fernandez RDCS Physical Exam Const alert and no apparent distress Resp normal respiratory effort, no retractions, no use of accessory muscles and clear to auscultation bilaterally Cardio regular rate, regular rhythm, S1 normal heart sound and S2 normal heart sound Assessment & Plan Assessment/Plan (1) Acute respiratory failure: QUALIFIERS: Respiratory failure complication: hypoxia and hypercapnia Qualified Code(s): J96.01 - Acute respiratory failure with hypoxia; J96.02 - Acute respiratory failure with hypercapnia (2) Cardiac arrest: PLAN: 1. acute hypoxic and hypercapnic respiratory failure overall better extubated 03/17 2. Vfib arrest cardiology following EF 35% from echocardiogram on the cardiology deferring further cardiac assessment until neurologic condition is further clarified. 3. Delirium ongoing unclear etiology: DTs/alcohol withdrawal, anoxic encpephalopathy, ICU psychosis dexmedetomidine, quetiapine, 4. persistent fevers previous infectious work up negative pip/tazo started repeat infectious work up underway. 5. mechanical MV on heparin gtt, consider weight-based enoxaparin 6. VTE prophylaxis: not indicated given he is already anticoagulated Charges/Coding Visit Charges Inpatient E&M: 54951 Subs Hosp L2
[2021-03-19] MEDS: Acetaminophen 650 MG Suppository RC (17:08)
[2021-03-19 17:28] LABS: Anion Gap 5 (5-15); BUN 23 mg/dL (7-18); BUN/Creat Ratio 21.5 RATIO (10-20); Calcium,Total 8.7 mg/dL (8.5-10.1); Chloride 130 mmol/L (98-107); Creatinine, Serum 1.07 mg/dL (0.70-1.30); EST Glomerular Filtration Rate 74 mL/min (>60); Est Glom Filt Rate - Afr Amer 90 mL/min (>60); Estimated Creatinine Clearance 56.87 ml/min; Glucose 114 mg/dL (74-106); Potassium 3.4 mmol/L (3.5-5.1); Sodium Level 159 mmol/L (136-145)
[2021-03-19 18:10] LABS: Phosphorus 2.1 mg/dL (2.5-4.9)
[2021-03-20] VITALS (34 sets, daily range): BP systolic 107–171; BP diastolic 68–100; PULSE 11–142; RESP 28–45; TEMP 36.6–38; O2SAT 90–99
[2021-03-20] MEDS: Dexmedetomidine 1,000 mcg in 0.9% NS 240 mL 22.5 MCG CONT INF ×3 (00:32→22:45)
[2021-03-20] MEDS: Acetaminophen 650 MG Suppository RC ×2 (00:34→20:17)
[2021-03-20 03:57] LABS: Absolute Lymphocyte Count 0.97 X10^3/uL (0.83-4.51); Absolute Neutrophil Count 8.9 X10^3/uL (2.0-7.7); Basophil# 0.07 X10^3/uL; Basophil% 0.7 % (0-1); Eosinophil# 0.06 X10^3/uL; Eosinophils% 0.6 % (0-5); Hematocrit 26.2 % (40-54); Hemoglobin 7.9 g/dL (13.0-16.5); Lymphocyte # 0.97 X10^3/ul (0.83-4.51); Lymphocyte % 9.3 % (19-41); Mean Corp Hgb Conc 30.2 g/dL (32-36); Mean Corpuscular Hgb 29.2 pg (27.0-32.0); Mean Corpuscular Volume 96.7 fL (80-94); Mean Platelet Vol. 10.6 fl (6.2-12.0); Monocyte% 3.8 % (0-10); NRBC Flagged by Analyzer 0 % (0-5); Neutrophil # 8.86 X10^3/uL (2.7-7.7); POSITIVE MORPHOLOGY YES; Platelet Count 445 K/mm3 (150-450); RBC Distribution Width CV 20.3 % (11.6-14.6); RBC Distribution Width SD 70.2 fl (35.1-43.9); Red Blood Count 2.71 M/mm3 (4.6-6.2); White Blood Count 10.4 K/mm3 (4.4-11.0)
[2021-03-20 04:11] LABS: Partial Thromboplast Time 49.3 Seconds (24.1-36.2)
[2021-03-20 04:20] LABS: Differential Indicated SCAN CRITERIA MET
[2021-03-20] MEDS: 0.9% Saline Lock 10 ML Syringe IV ×2 (04:35→12:03)
[2021-03-20] MEDS: Heparin Injection (Vial) 5,000 UNIT/ML VIAL IV ×2 (04:35→11:59)
[2021-03-20 04:51] LABS: ALB/GLOB Ratio 0.3 RATIO (0.9-2.4); AST(SGOT) 54 U/L (15-37); Alanine Aminotransfer ALT/SGPT 52 U/L (16-61); Albumin, Serum 1.4 g/dL (3.2-5.0); Alkaline Phosphatase 132 U/L (45-117); Anion Gap 4 (5-15); BUN 20 mg/dL (7-18); BUN/Creat Ratio 20.9 RATIO (10-20); Calcium,Total 7.9 mg/dL (8.5-10.1); Chloride 132 mmol/L (98-107); Creatinine, Serum 0.96 mg/dL (0.70-1.30); EST Glomerular Filtration Rate 84 mL/min (>60); Est Glom Filt Rate - Afr Amer 102 mL/min (>60); Estimated Creatinine Clearance 63.39 ml/min; Globulin 5.3 g/dL (2.2-4.2); Glucose 119 mg/dL (74-106); Magnesium 2.3 mg/dL (1.6-2.6); Phosphorus 4.3 mg/dL (2.5-4.9); Potassium 3.3 mmol/L (3.5-5.1); Protein, Total 6.7 g/dL (6.4-8.2); Sodium Level 160 mmol/L (136-145)
[2021-03-20] MEDS: Piperacil/Tazobactam 3.375 GM Q8 PREMIX IV ×3 (05:21→21:27)
[2021-03-20 05:56] LABS: Anisocytosis 1+; Differential Comment SCANNED; Hypochromasia 2+; Microcytosis 1+
[2021-03-20] MEDS: Potassium Chloride 20mEq/100mL 20 MEQ/100 ML IV.SOLN. 100 MEQ IV BOLUS ×2 (05:56→07:30)
--- NOTE | 2021-03-20 07:01 | PCM.PN.INT ---
Assessment & Plan Assessment/Plan (1) Acute respiratory failure: QUALIFIERS: Respiratory failure complication: hypoxia and hypercapnia Qualified Code(s): J96.01 - Acute respiratory failure with hypoxia; J96.02 - Acute respiratory failure with hypercapnia PLAN: RECOMMENDATIONS: 1. Await repeat cultures. Continue Zosyn for now 2. Wean Precedex as tolerated. Continue Seroquel as ordered once able to swallow. 3. Aggressive pulmonary toileting 4. Speech therapy for swallow recommendations. May need to consider PEG 5. Continue to monitor H&H daily and transfuse if hemoglobin drops below 7 g/dL. 6. Continue heparin infusion as tolerated. 7. Continue PPI therapy twice daily. 8. Continue D5W and hold Lasix given hypernatremia and hyperchloremia IMPRESSIONS: 1. Acute hypoxemic and hypercarbic respiratory failure status post V. fib cardiac arrest The patient was initially admitted for acute alcohol detoxification and was found unresponsive in V. fib arrest. The patient did receive ACLS with eventual return of spontaneous circulation. He was intubated as a consequence of the aforementioned. The patient will remain on assist control mode of mechanical ventilation. FiO2 and PEEP will be weaned as tolerated. In light of the fact that the patient developed fevers, empiric antimicrobials were initiated. Continue tube feeds as tolerated. Echocardiogram did reveal a depressed ejection fraction at 35%. Patient successfully extubated, but continues to have copious secretions. Patient continues to have fever. Patient is growing mild Pseudomonas from the sputum culture. Patient is also on Precedex, so drug fever would be a consideration. 2. Acute kidney injury Resolved. Likely prerenal in etiology/ischemic ATN in the setting of cardiac arrest. Anticipate improvement with stabilization of hemodynamics. Continue to monitor urine output for now. Avoid nephrotoxic medications. No current indication for renal replacement therapy. 3. Acute liver injury Improving. Likely secondary to cardiac arrest and hemodynamic instability leading to hypoperfusion. Anticipate improvement with stabilization of hemodynamics. 4. Hypernatremia/hypokalemia Patient has received significant Lasix over the last 48 hours. May need to reinitiate D5W pending today's labs. Potassium and magnesium supplementation as indicated. Clinical suspicion for an element of refeeding syndrome. 5. Acute alcohol withdrawal Resolved. Continue current sedation regimen including Precedex until patient can tolerate Seroquel dosing. 6. Anemia There is some concern for coffee-ground output from the patient's OG tube. The patient did require transfusion of blood products after his hemoglobin fell to 7.2 g/dL. Posttransfusion, hemoglobin has been stable. Okay to continue heparin at this time. Continue PPI therapy twice daily. 7. History of prosthetic mitral valve/hypertension/hyperlipidemia Complicates care, management, recovery and prognosis. Continue home medications as indicated. Some concerns for nutrition moving forward. May need to discuss TPN versus PEG tube. Patient is receiving D5W TIME: 33 minutes of critical care time, independent of procedures, was spent addressing the patient's acute combined respiratory failure, V. fib cardiac arrest, acute kidney injury, acute liver injury, acute alcohol withdrawal, anemia, review of all data and collaboration with the care team. Subjective Subjective Patient did okay overnight. Patient has been doing better with voluntary clearance of airway secretions. Patient's mentation is slightly improved as he will respond to questions. Patient is not reporting any pain at this time. Patient has received multiple potassium supplementations over the last 24 hours, but no significant arrhythmias have been noted. Objective Data Objective Data Vital Signs: Vital Signs Temp Pulse Resp BP Pulse Ox 37.7 C H 101 H 41 H 156/90 H 95 03/20/21 03:42 03/20/21 07:00 03/20/21 07:00 03/20/21 07:00 03/20/21 07:00 Oxygen Flow Rate (L/min) 5 Oxygen Delivery Method Nasal Cannula Weight: 57 kg Body Mass Index (BMI) 23.6 Intake & Output: Intake and Output for Last 24 Hours 03/18/21 03/19/21 03/20/21 23:59 23:59 23:59 Intake Total 1641.85 / 1664.35 2401.03 / 2423.53 902.5133 / 902.5133 Output Total 1975 / 2375 700 / 700 Balance -333.15 / -710.65 1701.03 / 1723.53 902.5133 / 902.5133 Lab / Micro Data Result Diagrams: 03/20/21 03:50 03/20/21 03:50 Labs: Laboratory Results - last 24 hr 03/19/21 09:00: WBC 13.2 H, RBC 2.85 L, Hgb 8.4 L, Hct 26.8 L, MCV 94.0, MCH 29.5, MCHC 31.3 L, RDW Std Deviation 67.1 H, RDW Coeff of Harjeet 20.0 H, Plt Count 403, MPV 10.3, Immature Gran % (Auto) 0.500, Neut % (Auto) 85.6 H, Lymph % (Auto) 7.4 L, [place] % (Auto) 5.9, Eos % (Auto) 0.1, Baso % (Auto) 0.5, Absolute Neuts (auto) 11.3 H, Absolute Lymphs (auto) 0.98, Nucleated RBC % 0.2, Differential Comment SCANNED, Polychromasia RARE, Anisocytosis 2+ 03/19/21 09:00: Sodium 158 H, Potassium 2.8 L, Chloride 125 H, Carbon Dioxide 25.0, Anion Gap 8, BUN 22 H, Creatinine 0.96, Estim Creat Clear Calc 63.39, Est GFR (MDRD) Af Amer 102, Est GFR (MDRD) Non-Af 84, BUN/Creatinine Ratio 22.9 H, Glucose 154 H, Calcium 8.0 L, Phosphorus 3.1, Magnesium 1.9 03/19/21 17:00: Sodium 159 H, Potassium 3.4 L, Chloride 130 H*, Carbon Dioxide 24.0, Anion Gap 5, BUN 23 H, Creatinine 1.07, Estim Creat Clear Calc 56.87, Est GFR (MDRD) Af Amer 90, Est GFR (MDRD) Non-Af 74, BUN/Creatinine Ratio 21.5 H, Glucose 114 H, Calcium 8.7 03/19/21 17:00: Phosphorus 2.1 L 03/20/21 03:50: APTT 49.3 H 03/20/21 03:50: WBC 10.4, RBC 2.71 L, Hgb 7.9 L, Hct 26.2 L, MCV 96.7 H, MCH 29.2, MCHC 30.2 L, RDW Std Deviation 70.2 H, RDW Coeff of Harjeet 20.3 H, Plt Count 445, MPV 10.6, Immature Gran % (Auto) 0.600, Neut % (Auto) 85.0 H, Lymph % (Auto) 9.3 L, [place] % (Auto) 3.8, Eos % (Auto) 0.6, Baso % (Auto) 0.7, Absolute Neuts (auto) 8.9 H, Absolute Lymphs (auto) 0.97, Nucleated RBC % 0, Differential Comment SCANNED, Hypochromasia 2+, Anisocytosis 1+, Microcytosis 1+ 03/20/21 03:50: Sodium 160 H, Potassium 3.3 L, Chloride 132 H*, Carbon Dioxide 24.0, Anion Gap 4 L, BUN 20 H, Creatinine 0.96, Estim Creat Clear Calc 63.39, Est GFR (MDRD) Af Amer 102, Est GFR (MDRD) Non-Af 84, BUN/Creatinine Ratio 20.9 H, Glucose 119 H, Calcium 7.9 L, Phosphorus 4.3, Magnesium 2.3, Total Bilirubin 0.70, AST 54 H, ALT 52, Alkaline Phosphatase 132 H, Total Protein 6.7, Albumin 1.4 L, Globulin 5.3 H, Albumin/Globulin Ratio 0.3 L Micro: Microbiology 03/18/21 10:35 Blood Culture (Wb) - Right Hand Blood Culture - Preliminary No growth in 48 hours. 03/18/21 10:00 Blood Culture (Wb) - Central Line Blood Culture - Preliminary No growth in 48 hours. 03/18/21 13:00 Sputum, Induced/Lukens Gram Stain - Final 03/18/21 13:00 Sputum, Induced/Lukens Respiratory Culture - Preliminary GNR Poss Pseudomonas sp 03/11/21 12:10 Blood Culture (Wb) - Right Forearm Blood Culture - Final No growth in 5 days. 03/11/21 12:15 Blood Culture (Wb) - Left Forearm Blood Culture - Final No growth in 5 days. 03/09/21 07:53 Blood Culture (Wb) - Anticubital Right Blood Culture - Final Coag Negative Staph 03/09/21 07:55 Blood Culture (Wb) - Anticubital Left Blood Culture - Final No growth in 5 days. 03/09/21 07:50 Urine Catheter - Catheter Urine Culture - Final Culture exhibits no growth. 03/07/21 23:00 Sputum, Induced/Lukens Gram Stain - Final 03/07/21 23:00 Sputum, Induced/Lukens Respiratory Culture - Final Mixed normal respiratory héctor. No Streptococcus pneumoniae, beta-hemolytic Streptococcus or Staphylococcus aureus isolated. 03/07/21 06:08 Nasal Secretion SARS-CoV-2 Antigen (Rapid) - Final Physical Exam Const Constitutional Narrative: Appears older than stated age. Makes eye contact, but now conversing with 1-2 word responses General Appearance: in distress Positive for moderate, anxious, uncooperative and disheveled HEENT normocephalic and head/scalp atraumatic HEENT Narrative: Poor dentition Eyes PERRL Neck supple General: trachea midline Chest inspection of chest normal Chest: symmetrical chest wall rise; Negative for crepitus Resp Effort and Inspection: tachypneic; Negative for grunting or stridor Auscultation: rhonchi lower bilaterally; Negative for rales or wheezes Cardio S1 normal heart sound, S2 normal heart sound, no murmurs, no rub and no gallops Rate: tachycardic GI normal to inspection, nondistended, normoactive bowel sounds Extremity no clubbing, cyanosis or edema Skin no rashes or lesions noted Neuro Sensorium / Orientation: sedated on vent Charges/Coding Procedures Hospitalists Procedures: 59900 Critial Care 1st Hr
[2021-03-20] MEDS: QUEtiapine 100 MG Tablet 150 MG GT ×2 (09:31→21:27)
[2021-03-20] MEDS: CHLORHEXIDINE GLUC 2% CLOTH 1 EACH TOWELETTE TOPICAL (09:32)
[2021-03-20 10:56] LABS: Partial Thromboplast Time 47.4 Seconds (24.1-36.2)
[2021-03-20] MEDS: Carvedilol 12.5 MG Tablet PO ×2 (11:20→21:27)
[2021-03-20] MEDS: fentaNYL 100 MCG/2 ML Ampul 50 MCG IV ×2 (12:01→20:17)
--- NOTE | 2021-03-20 12:49 | PN.HOSP_ITS ---
Subjective Subjective still confused. Tachycardic and hypertensive. Only cleared for essential meds PO. Objective Data Objective Data Vital Signs: Vital Signs Temp Pulse Resp BP Pulse Ox 37.2 C 117 H 36 H 143/91 H 95 03/20/21 12:00 03/20/21 12:25 03/20/21 12:00 03/20/21 12:00 03/20/21 12:00 Oxygen Flow Rate (L/min) 4 Oxygen Delivery Method Nasal Cannula Weight: 57 kg Body Mass Index (BMI) 23.6 Intake & Output: Intake and Output for Last 24 Hours 03/18/21 03/19/21 03/20/21 23:59 23:59 23:59 Intake Total 1641.85 / 1664.35 2401.03 / 2423.53 1678.6733 / 1678.6733 Output Total 1974 700 / 700 Balance -333.15 / -710.65 1701.03 / 1723.53 1678.6733 / 1678.6733 Medical Nutrition Assessment Dietitian: Malnutrition Criteria Met Start: 03/20/21 08:54 Freq: Status: Active Protocol: Document 03/20/21 08:54 AG (Rec: 03/20/21 08:55 [id number]) Nutrition Malnutrition Evidence of Malnutrition Exists Yes Malnutrition (severe): Acute Illness/Injury Evidenced By Suboptimal Energy Intake ( Severe),Weight Loss (Severe) Intake Problem Inadequate Oral Intake Etiology r/t dysphagia, altered mental status Signs/Symptoms as evidenced by inability to consume sufficient nutrition via PO diet x 3 days Status Active Problem Clinical Problem Acute Disease or Injury Related Malnutrition Etiology severe, acute malnutrition r/t inadequate energy intake d/t mechanical intubation, dysphagia s/p extubation Signs/Symptoms as evidenced by unintentional wt loss of 3.6kg/6% <1 month, estimated PO Intake meeting < 50% of estimated energy needs >5 days. 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 4 oz Ensure Enlive w/ medpass when PO diet advanced. If unable to advance PO diet in next 48 hours, recommend placement of NGT or PEG for nutrition support- consult RDN for further recommendations. Lab / Micro Data Result Diagrams: 03/20/21 03:50 03/20/21 03:50 Labs: Laboratory Results - last 24 hr 03/19/21 17:00: Sodium 159 H, Potassium 3.4 L, Chloride 130 H*, Carbon Dioxide 24.0, Anion Gap 5, BUN 23 H, Creatinine 1.07, Estim Creat Clear Calc 56.87, Est GFR (MDRD) Af Amer 90, Est GFR (MDRD) Non-Af 74, BUN/Creatinine Ratio 21.5 H, Glucose 114 H, Calcium 8.7 03/19/21 17:00: Phosphorus 2.1 L 03/20/21 03:50: APTT 49.3 H 03/20/21 03:50: WBC 10.4, RBC 2.71 L, Hgb 7.9 L, Hct 26.2 L, MCV 96.7 H, MCH 29.2, MCHC 30.2 L, RDW Std Deviation 70.2 H, RDW Coeff of Harjeet 20.3 H, Plt Count 445, MPV 10.6, Immature Gran % (Auto) 0.600, Neut % (Auto) 85.0 H, Lymph % (Auto) 9.3 L, [place] % (Auto) 3.8, Eos % (Auto) 0.6, Baso % (Auto) 0.7, Absolute Neuts (auto) 8.9 H, Absolute Lymphs (auto) 0.97, Nucleated RBC % 0, Differential Comment SCANNED, Hypochromasia 2+, Anisocytosis 1+, Microcytosis 1+ 03/20/21 03:50: Sodium 160 H, Potassium 3.3 L, Chloride 132 H*, Carbon Dioxide 24.0, Anion Gap 4 L, BUN 20 H, Creatinine 0.96, Estim Creat Clear Calc 63.39, Est GFR (MDRD) Af Amer 102, Est GFR (MDRD) Non-Af 84, BUN/Creatinine Ratio 20.9 H, Glucose 119 H, Calcium 7.9 L, Phosphorus 4.3, Magnesium 2.3, Total Bilirubin 0.70, AST 54 H, ALT 52, Alkaline Phosphatase 132 H, Total Protein 6.7, Albumin 1.4 L, Globulin 5.3 H, Albumin/Globulin Ratio 0.3 L 03/20/21 10:35: APTT 47.4 H Micro: Microbiology 03/18/21 13:00 Sputum, Induced/Lukens Gram Stain - Final 03/18/21 13:00 Sputum, Induced/Lukens Respiratory Culture - Final Pseudomonas aeroginosa 03/18/21 10:35 Blood Culture (Wb) - Right Hand Blood Culture - Preliminary No growth in 48 hours. 03/18/21 10:00 Blood Culture (Wb) - Central Line Blood Culture - Preliminary No growth in 48 hours. 03/11/21 12:10 Blood Culture (Wb) - Right Forearm Blood Culture - Final No growth in 5 days. 03/11/21 12:15 Blood Culture (Wb) - Left Forearm Blood Culture - Final No growth in 5 days. 03/09/21 07:53 Blood Culture (Wb) - Anticubital Right Blood Culture - Final Coag Negative Staph 03/09/21 07:55 Blood Culture (Wb) - Anticubital Left Blood Culture - Final No growth in 5 days. 03/09/21 07:50 Urine Catheter - Catheter Urine Culture - Final Culture exhibits no growth. 03/07/21 23:00 Sputum, Induced/Lukens Gram Stain - Final 03/07/21 23:00 Sputum, Induced/Lukens Respiratory Culture - Final Mixed normal respiratory héctor. No Streptococcus pneumoniae, beta-hemolytic Streptococcus or Staphylococcus aureus isolated. 03/07/21 06:08 Nasal Secretion SARS-CoV-2 Antigen (Rapid) - Final Physical Exam Const Constitutional Narrative: awakes. mumble incoherntly. Resp normal respiratory effort, no retractions, no use of accessory muscles and clear to auscultation bilaterally Cardio regular rate, regular rhythm, S1 normal heart sound and S2 normal heart sound GI normal to inspection, nondistended, normoactive bowel sounds, soft to palpation, non-tender and non-distended Extremity normal to inspection Neuro oriented x3 Sensorium / Orientation: awake, alert and oriented to person Assessment & Plan Assessment/Plan (1) Acute respiratory failure: QUALIFIERS: Respiratory failure complication: hypoxia and hypercapnia Qualified Code(s): J96.01 - Acute respiratory failure with hypoxia; J96.02 - Acute respiratory failure with hypercapnia (2) Cardiac arrest: PLAN: 1. acute hypoxic and hypercapnic respiratory failure overall better extubated 03/17 2. Vfib arrest cardiology following EF 35% from echocardiogram on the 12th cardiology deferring further cardiac assessment until neurologic condition is further clarified. 3. Delirium ongoing unclear etiology: DTs/alcohol withdrawal, anoxic encpephalopathy, ICU psychosis dexmedetomidine, quetiapine, 4. persistent fevers previous infectious work up negative pip/tazo started repeat infectious work up underway. 5. mechanical MV on heparin gtt, consider weight-based enoxaparin 6. VTE prophylaxis: not indicated given he is already anticoagulated Prognosis guarded Charges/Coding Visit Charges Inpatient E&M: 97585 Subs Hosp L2
[2021-03-20] MEDS: Albuterol 2.5 MG/3 ML VIAL.NEB. INHALATION (16:52)
--- NOTE | 2021-03-20 17:25 | RAD_ITS ---
STUDY: X-RAY CHEST REASON FOR EXAM: Male, 61 years old. sob TECHNIQUE: AP portable COMPARISON: 03/17/2021 FINDINGS: Bilateral perihilar interstitial infiltrates or pulmonary edema in association with peripheral areas of consolidation suggesting atypical viral pneumonia and possibly coexisting congestive failure. There is no demonstrated pleural abnormality. Postop change status post median sternotomy and CABG. Heart is enlarged. Left suprahilar marcy calcification. Normal visualized pulmonary arteries. Normal visualized aortic arch and descending thoracic aorta. Pacer noted on the right with electrodes in satisfactory position. Normal visualized thoracic spine. Normal visualized ribs, clavicles, and shoulders. There is no demonstrated abnormality of the visualized soft tissue structures of the upper abdomen. There is worsening airspace opacity in left upper lobe since previous exam. RAD/Chest 1 View (Portable) IMPRESSION: Findings suspicious for Covid 19 pneumonia with coexisting pulmonary interstitial edema. However clinical correlation is recommended. Electronically Signed: Brian Benoit MD at 18:53 EST , Service support ,
[2021-03-20 18:16] LABS: Partial Thromboplast Time 73.9 Seconds (24.1-36.2)
--- NOTE | 2021-03-20 23:15 | NURSING ---
Oral care completed, scant thick plug collected on suction cathetor. Pt with very minimal gag with deep suction.
--- NOTE | 2021-03-20 23:31 | NURSING ---
D5W continues to infuse
--- NOTE | 2021-03-20 23:59 | NURSING ---
text sent to Dr Menon to review 1853 CXR. New order received.
[2021-03-21] VITALS (39 sets, daily range): BP systolic 88–168; BP diastolic 57–120; PULSE 89–132; RESP 10–48; TEMP 36.6–37.8; O2SAT 87–100
[2021-03-21 00:38] LABS: Partial Thromboplast Time 64.8 Seconds (24.1-36.2)
[2021-03-21] MEDS: 0.9% Saline Lock 10 ML Syringe IV ×4 (02:36→06:10)
[2021-03-21] MEDS: Furosemide 20 MG/2 ML VIAL IV (03:04)
[2021-03-21 03:05] LABS: BNP,B-Type NATRIURETIC PEPTIDE 339.2 pg/mL (0-100)
[2021-03-21 03:07] LABS: Absolute Lymphocyte Count 0.89 X10^3/uL (0.83-4.51); Absolute Neutrophil Count 6.2 X10^3/uL (2.0-7.7); Basophil# 0.05 X10^3/uL; Basophil% 0.6 % (0-1); Differential Indicated SCAN CRITERIA MET; Eosinophil# 0.27 X10^3/uL; Eosinophils% 3.5 % (0-5); Hematocrit 23.6 % (40-54); Hemoglobin 6.9 g/dL (13.0-16.5); Lymphocyte # 0.89 X10^3/ul (0.83-4.51); Lymphocyte % 11.5 % (19-41); Mean Corp Hgb Conc 29.2 g/dL (32-36); Mean Corpuscular Volume 99.2 fL (80-94); Mean Platelet Vol. 10.9 fl (6.2-12.0); Monocyte% 3.9 % (0-10); NRBC Flagged by Analyzer 0 % (0-5); Neutrophil # 6.19 X10^3/uL (2.7-7.7); POSITIVE MORPHOLOGY YES; Platelet Count 356 K/mm3 (150-450); RBC Distribution Width CV 19.9 % (11.6-14.6); RBC Distribution Width SD 72.1 fl (35.1-43.9); Red Blood Count 2.38 M/mm3 (4.6-6.2); White Blood Count 7.7 K/mm3 (4.4-11.0)
[2021-03-21 03:19] LABS: Anisocytosis 1+; Differential Comment SCANNED; Hypochromasia 1+; Microcytosis 1+
[2021-03-21 04:00] LABS: Anion Gap 2 (5-15); BUN 13 mg/dL (7-18); BUN/Creat Ratio 13.3 RATIO (10-20); Calcium,Total 8.2 mg/dL (8.5-10.1); Chloride 128 mmol/L (98-107); Creatinine, Serum 0.98 mg/dL (0.70-1.30); EST Glomerular Filtration Rate 82 mL/min (>60); Est Glom Filt Rate - Afr Amer 99 mL/min (>60); Estimated Creatinine Clearance 62.09 ml/min; Glucose 131 mg/dL (74-106); Potassium 3.4 mmol/L (3.5-5.1); Sodium Level 156 mmol/L (136-145)
--- NOTE | 2021-03-21 05:16 | NURSING ---
Oral care completed, large amount of sticky, rios phlegm cleaned from roof of mouth and back of throat.
[2021-03-21] MEDS: Piperacil/Tazobactam 3.375 GM Q8 PREMIX IV ×3 (05:38→22:00)
[2021-03-21] MEDS: Potassium Chloride 20mEq/100mL 20 MEQ/100 ML IV.SOLN. 100 MEQ IV BOLUS ×2 (06:10→07:21)
[2021-03-21 06:18] LABS: Partial Thromboplast Time 60.5 Seconds (24.1-36.2)
[2021-03-21] MEDS: CHLORHEXIDINE GLUC 2% CLOTH 1 EACH TOWELETTE TOPICAL (06:51)
--- NOTE | 2021-03-21 07:07 | PN.CC_ITS ---
Assessment & Plan Assessment/Plan (1) Acute respiratory failure: QUALIFIERS: Respiratory failure complication: hypoxia and hypercapnia Qualified Code(s): J96.01 - Acute respiratory failure with hypoxia; J96.02 - Acute respiratory failure with hypercapnia PLAN: RECOMMENDATIONS: 1. Await repeat cultures. Continue Zosyn for now 2. Wean Precedex as tolerated. Continue Seroquel as ordered once able to swallow. 3. Aggressive pulmonary toileting with Mucomyst 4. Speech therapy for swallow recommendations. May need to consider PEG versus TPN 5. Continue to monitor H&H daily and transfuse if hemoglobin drops below 7 g/dL. 6. Continue heparin infusion as tolerated. 7. Continue PPI therapy twice daily. 8. Continue D5W and hold Lasix given hypernatremia and hyperchloremia IMPRESSIONS: 1. Acute hypoxemic and hypercarbic respiratory failure status post V. fib cardiac arrest The patient was initially admitted for acute alcohol detoxification and was found unresponsive in V. fib arrest. The patient did receive ACLS with even tual return of spontaneous circulation. He was intubated as a consequence of the aforementioned. The patient will remain on assist control mode of mechanical ventilation. FiO2 and PEEP will be weaned as tolerated. In light of the fact that the patient developed fevers, empiric antimicrobials were initiated. Continue tube feeds as tolerated. Echocardiogram did reveal a depressed ejection fraction at 35%. Patient successfully extubated, but continues to have copious secretions. Patient continues to have fever. Patient is growing mild Pseudomonas from the sputum culture. Patient is also on Precedex, so drug fever would be a consideration. 2. Acute kidney injury Resolved. Likely prerenal in etiology/ischemic ATN in the setting of cardiac arrest. Anticipate improvement with stabilization of hemodynamics. Continue to monitor urine output for now. Avoid nephrotoxic medications. No current indication for renal replacement therapy. 3. Acute liver injury Improving. Likely secondary to cardiac arrest and hemodynamic instability leading to hypoperfusion. Anticipate improvement with stabilization of hemodynamics. 4. Hypernatremia/hypokalemia Patient has received significant Lasix over the hospitalization. Back on D5W. Potassium and magnesium supplementation as indicated. Clinical suspicion for an element of refeeding syndrome. 5. Acute alcohol withdrawal Resolved. Continue current sedation regimen including Precedex until patient can tolerate Seroquel dosing. 6. Anemia There is some concern for coffee-ground output from the patient's OG tube. The patient did require transfusion of blood products after his hemoglobin fell to 7.2 g/dL. Hemoglobin is 6.9 this morning. Will transfuse 1 unit. Okay to continue heparin at this time as there does not appear to be any clinical bleeding. Continue PPI therapy twice daily. 7. History of prosthetic mitral valve/hypertension/hyperlipidemia Complicates care, management, recovery and prognosis. Continue home medications as indicated. Some concerns for nutrition moving forward. May need to discuss TPN versus PEG tube. Patient is receiving D5W Subjective Subjective Patient with continued tachypnea and respiratory distress overnight despite relatively stable oxygenation. Attempts at NT suctioning have been marginally effective. Nursing reports attempts at giving vital meds with applesauce resulted in coughing. Patient did receive a dose of Lasix overnight with reported good output. No obvious bleeding is been reported Objective Data Objective Data Vital Signs: Vital Signs Temp Pulse Resp BP Pulse Ox 36.9 C 101 H 41 H 133/79 H 96 03/21/21 06:00 03/21/21 06:00 03/21/21 06:00 03/21/21 06:00 03/21/21 06:00 Oxygen Flow Rate (L/min) 5 Oxygen Delivery Method Nasal Cannula Weight: 58 kg Body Mass Index (BMI) 23.6 Intake & Output: Intake and Output for Last 24 Hours 03/19/21 03/20/21 03/21/21 23:59 23:59 23:59 Intake Total 2401.03 / 2423.53 3443.0833 / 3443.0833 813.55 / 813.55 Output Total 700 / 700 Balance 1701.03 / 1723.53 3443.0833 / 3443.0833 813.55 / 813.55 Medical Nutrition Assessment Dietitian: Malnutrition Criteria Met Start: 03/20/21 08:54 Freq: Status: Active Protocol: Document 03/20/21 08:54 AG (Rec: 03/20/21 08:55 [id number]) Nutrition Malnutrition Evidence of Malnutrition Exists Yes Malnutrition (severe): Acute Illness/Injury Evidenced By Suboptimal Energy Intake ( Severe),Weight Loss (Severe) Intake Problem Inadequate Oral Intake Etiology r/t dysphagia, altered mental status Signs/Symptoms as evidenced by inability to consume sufficient nutrition via PO diet x 3 days Status Active Problem Clinical Problem Acute Disease or Injury Related Malnutrition Etiology severe, acute malnutrition r/t inadequate energy intake d/t mechanical intubation, dysphagia s/p extubation Signs/Symptoms as evidenced by unintentional wt loss of 3.6kg/6% <1 month, estimated PO Intake meeting < 50% of estimated energy needs >5 days. Status Active Problem Recommendation Dietitian Recommendations/Changes Regular diet- texture/ consistency modification per PUBLICATION DIRECTOR. 4 oz Ensure Enlive w/ medpass when PO diet advanced. If unable to advance PO diet in next 48 hours, recommend placement of NGT or PEG for nutrition support- consult RDN for further recommendations. Lab / Micro Data Result Diagrams: 03/21/21 02:35 03/21/21 02:35 Labs: Laboratory Results - last 24 hr 03/10/21 06:35: Crossmatch See Detail 03/20/21 10:35: APTT 47.4 H 03/20/21 17:55: APTT 73.9 H 03/21/21 00:17: APTT 64.8 H 03/21/21 02:35: WBC 7.7, RBC 2.38 L, Hgb 6.9 L, Hct 23.6 L, MCV 99.2 H, MCH 29.0, MCHC 29.2 L, RDW Std Deviation 72.1 H, RDW Coeff of Harjeet 19.9 H, Plt Count 356, MPV 10.9, Immature Gran % (Auto) 0.500, Neut % (Auto) 80.0 H, Lymph % (Auto) 11.5 L, [place] % (Auto) 3.9, Eos % (Auto) 3.5, Baso % (Auto) 0.6, Absolute Neuts (auto) 6.2, Absolute Lymphs (auto) 0.89, Nucleated RBC % 0, Differential Comment SCANNED, Hypochromasia 1+, Anisocytosis 1+, Microcytosis 1+ 03/21/21 02:35: Sodium 156 H, Potassium 3.4 L, Chloride 128 H*, Carbon Dioxide 26.0, Anion Gap 2 L, BUN 13, Creatinine 0.98, Estim Creat Clear Calc 62.09, Est GFR (MDRD) Af Amer 99, Est GFR (MDRD) Non-Af 82, BUN/Creatinine Ratio 13.3, Glucose 131 H, Calcium 8.2 L 03/21/21 02:38: B-Natriuretic Peptide 339.2 H 03/21/21 05:35: APTT 60.5 H 03/21/21 05:55: Blood Type O POSITIVE, Antibody Screen NEGATIVE, Crossmatch See Detail Micro: Microbiology 03/20/21 23:54 Nasal Secretion SARS-CoV-2 Antigen (Rapid) - Final 03/18/21 13:00 Sputum, Induced/Lukens Gram Stain - Final 03/18/21 13:00 Sputum, Induced/Lukens Respiratory Culture - Final Pseudomonas aeroginosa 03/18/21 10:35 Blood Culture (Wb) - Right Hand Blood Culture - Preliminary No growth in 48 hours. 03/18/21 10:00 Blood Culture (Wb) - Central Line Blood Culture - Preliminary No growth in 48 hours. 03/11/21 12:10 Blood Culture (Wb) - Right Forearm Blood Culture - Final No growth in 5 days. 03/11/21 12:15 Blood Culture (Wb) - Left Forearm Blood Culture - Final No growth in 5 days. 03/09/21 07:53 Blood Culture (Wb) - Anticubital Right Blood Culture - Final Coag Negative Staph 03/09/21 07:55 Blood Culture (Wb) - Anticubital Left Blood Culture - Final No growth in 5 days. 03/09/21 07:50 Urine Catheter - Catheter Urine Culture - Final Culture exhibits no growth. 03/07/21 23:00 Sputum, Induced/Lukens Gram Stain - Final 03/07/21 23:00 Sputum, Induced/Lukens Respiratory Culture - Final Mixed normal respiratory héctor. No Streptococcus pneumoniae, beta-hemolytic Streptococcus or Staphylococcus aureus isolated. 03/07/21 06:08 Nasal Secretion SARS-CoV-2 Antigen (Rapid) - Final Radiography Diagnostic Testing: Radiology Impression Chest X-Ray 03/20/21 17:25 IMPRESSION: Findings suspicious for Covid 19 pneumonia with coexisting pulmonary interstitial edema. However clinical correlation is recommended. Electronically Signed: Brian Benoit MD at 18:53 EST , Service support , Physical Exam Const Constitutional Narrative: Appears older than stated age. Makes eye contact, but now conversing with 1-2 word responses General Appearance: in distress Positive for moderate, anxious, uncooperative and disheveled HEENT normocephalic and head/scalp atraumatic HEENT Narrative: Poor dentition Eyes PERRL Neck supple General: trachea midline Chest inspection of chest normal Chest Narrative: Significant upper airway noise transmission Chest: symmetrical chest wall rise; Negative for crepitus Resp Effort and Inspection: tachypneic; Negative for grunting or stridor Auscultation: rhonchi lower bilaterally; Negative for rales or wheezes Cardio S1 normal heart sound, S2 normal heart sound, no murmurs, no rub and no gallops Rate: tachycardic GI normal to inspection, nondistended, normoactive bowel sounds Extremity no clubbing, cyanosis or edema Skin no rashes or lesions noted Neuro Sensorium / Orientation: sedated on vent Charges/Coding Visit Charges Inpatient E&M: 67578 [facility] Hosp L3
[2021-03-21] MEDS: Acetylcysteine 800 MG/4 ML VIAL.NEB. INHALATION ×3 (07:13→19:30)
[2021-03-21] MEDS: Albuterol 2.5 MG/3 ML VIAL.NEB. INHALATION ×2 (07:13→13:24)
[2021-03-21] MEDS: Dexmedetomidine 1,000 mcg in 0.9% NS 240 mL 22.5 MCG CONT INF ×2 (08:59→20:11)
--- NOTE | 2021-03-21 09:55 | PN.HOSP_ITS ---
Subjective Subjective Still confused, requiring dexmedetomidine for sedation. Copious secretions. Objective Data Objective Data Vital Signs: Vital Signs Temp Pulse Resp BP Pulse Ox 37.4 C H 98 38 H 125/67 H 98 03/21/21 08:00 03/21/21 09:00 03/21/21 09:00 03/21/21 09:00 03/21/21 09:00 Oxygen Flow Rate (L/min) 7 Oxygen Delivery Method Nasal Cannula Weight: 58 kg Body Mass Index (BMI) 23.6 Intake & Output: Intake and Output for Last 24 Hours 03/19/21 03/20/21 03/21/21 23:59 23:59 23:59 Intake Total 2401.03 / 2423.53 3443.0833 / 3443.0833 1370.68 / 1370.68 Output Total 700 / 700 Balance 1701.03 / 1723.53 3443.0833 / 3443.0833 1370.68 / 1370.68 Medical Nutrition Assessment Dietitian: Malnutrition Criteria Met Start: 03/20/21 08:54 Freq: Status: Active Protocol: Document 03/20/21 08:54 AG (Rec: 03/20/21 08:55 AG [id number]) Nutrition Malnutrition Evidence of Malnutrition Exists Yes Malnutrition (severe): Acute Illness/Injury Evidenced By Suboptimal Energy Intake ( Severe),Weight Loss (Severe) Intake Problem Inadequate Oral Intake Etiology r/t dysphagia, altered mental status Signs/Symptoms as evidenced by inability to consume sufficient nutrition via PO diet x 3 days Status Active Problem Clinical Problem Acute Disease or Injury Related Malnutrition Etiology severe, acute malnutrition r/t inadequate energy intake d/t mechanical intubation, dysphagia s/p extubation Signs/Symptoms as evidenced by unintentional wt loss of 3.6kg/6% <1 month, estimated PO Intake meeting < 50% of estimated energy needs >5 days. Status Active Problem Recommendation Dietitian Recommendations/Changes Regular diet- texture/ consistency modification per LIGHTING FIXTURES DECORATOR. 4 oz Ensure Enlive w/ medpass when PO diet advanced. If unable to advance PO diet in next 48 hours, recommend placement of NGT or PEG for nutrition support- consult RDN for further recommendations. Lab / Micro Data Result Diagrams: 03/21/21 02:35 03/21/21 02:35 Labs: Laboratory Results - last 24 hr 03/10/21 06:35: Crossmatch See Detail 03/20/21 10:35: APTT 47.4 H 03/20/21 17:55: APTT 73.9 H 03/21/21 00:17: APTT 64.8 H 03/21/21 02:35: WBC 7.7, RBC 2.38 L, Hgb 6.9 L, Hct 23.6 L, MCV 99.2 H, MCH 29.0, MCHC 29.2 L, RDW Std Deviation 72.1 H, RDW Coeff of Harjeet 19.9 H, Plt Count 356, MPV 10.9, Immature Gran % (Auto) 0.500, Neut % (Auto) 80.0 H, Lymph % (Auto) 11.5 L, [place] % (Auto) 3.9, Eos % (Auto) 3.5, Baso % (Auto) 0.6, Absolute Neuts (auto) 6.2, Absolute Lymphs (auto) 0.89, Nucleated RBC % 0, Differential Comment SCANNED, Hypochromasia 1+, Anisocytosis 1+, Microcytosis 1+ 03/21/21 02:35: Sodium 156 H, Potassium 3.4 L, Chloride 128 H*, Carbon Dioxide 26.0, Anion Gap 2 L, BUN 13, Creatinine 0.98, Estim Creat Clear Calc 62.09, Est GFR (MDRD) Af Amer 99, Est GFR (MDRD) Non-Af 82, BUN/Creatinine Ratio 13.3, Glucose 131 H, Calcium 8.2 L 03/21/21 02:38: B-Natriuretic Peptide 339.2 H 03/21/21 05:35: APTT 60.5 H 03/21/21 05:55: Blood Type O POSITIVE, Antibody Screen NEGATIVE, Crossmatch See Detail Micro: Microbiology 03/20/21 23:54 Nasal Secretion SARS-CoV-2 Antigen (Rapid) - Final 03/18/21 13:00 Sputum, Induced/Lukens Gram Stain - Final 03/18/21 13:00 Sputum, Induced/Lukens Respiratory Culture - Final Pseudomonas aeroginosa 03/18/21 10:35 Blood Culture (Wb) - Right Hand Blood Culture - Preliminary No growth in 48 hours. 03/18/21 10:00 Blood Culture (Wb) - Central Line Blood Culture - Preliminary No growth in 48 hours. 03/11/21 12:10 Blood Culture (Wb) - Right Forearm Blood Culture - Final No growth in 5 days. 03/11/21 12:15 Blood Culture (Wb) - Left Forearm Blood Culture - Final No growth in 5 days. 03/09/21 07:53 Blood Culture (Wb) - Anticubital Right Blood Culture - Final Coag Negative Staph 03/09/21 07:55 Blood Culture (Wb) - Anticubital Left Blood Culture - Final No growth in 5 days. 03/09/21 07:50 Urine Catheter - Catheter Urine Culture - Final Culture exhibits no growth. 03/07/21 23:00 Sputum, Induced/Lukens Gram Stain - Final 03/07/21 23:00 Sputum, Induced/Lukens Respiratory Culture - Final Mixed normal respiratory héctor. No Streptococcus pneumoniae, beta-hemolytic Streptococcus or Staphylococcus aureus isolated. 03/07/21 06:08 Nasal Secretion SARS-CoV-2 Antigen (Rapid) - Final Radiography Diagnostic Testing: Radiology Impression Chest X-Ray 03/20/21 17:25 IMPRESSION: Findings suspicious for Covid 19 pneumonia with coexisting pulmonary interstitial edema. However clinical correlation is recommended. Electronically Signed: Brian Benoit MD at 18:53 EST , Service support , Physical Exam Const Constitutional Narrative: establishes eye contact. when asked his name he says Josue. I asked him if Herminio is his middle name, he stared blankly. Orientation / Consciousness: confused Resp normal respiratory effort, no retractions and no use of accessory muscles Resp Narrative: coarse breath sounds. Cardio regular rate, regular rhythm, S1 normal heart sound and S2 normal heart sound GI normal to inspection, nondistended, normoactive bowel sounds and soft to palpation Assessment & Plan Assessment/Plan (1) Acute respiratory failure: QUALIFIERS: Respiratory failure complication: hypoxia and hypercapnia Qualified Code(s): J96.01 - Acute respiratory failure with hypoxia; J96.02 - Acute respiratory failure with hypercapnia (2) Cardiac arrest: PLAN: 1. acute hypoxic and hypercapnic respiratory failure 2/2 Vfib arrest overall better extubated 03/17 still with tachypnea 2. Vfib arrest cardiology following EF 35% from echocardiogram on the , though now it is 60% cardiology deferring further cardiac assessment until neurologic condition is further clarified. 3. Delirium ongoing unclear etiology: DTs/alcohol withdrawal, anoxic encpephalopathy, ICU psychosis dexmedetomidine, quetiapine, check head CT, EEG to rule out other etiologies and may help with goals of care if there are profound findings. No MRI given ICD Recheck ABG, NH3 4. persistent fevers 2/2 Pseudomonas pneumonia +/- dexmedetomidine pip/tazo started repeat infectious work up underway. 5. Pseudomonas pneumonia on pip/tazo 6. mechanical MV on heparin gtt, consider weight-based enoxaparin 7. VTE prophylaxis: not indicated given he is already anticoagulated 8. Hypernatremia improved on D5W Prognosis guarded
--- NOTE | 2021-03-21 10:07 | CT_ITS ---
STUDY: CT BRAIN WITHOUT CONTRAST REASON FOR EXAM: Male, 61 years old. encephalopathy RADIATION DOSAGE (If Supplied By Facility): CTDIvol = ( 44.99 ) mGy, DLP = ( 829.85 ) mGycm TECHNIQUE: Transaxial CT imaging of the brain was performed without administration of intravenous contrast material. Individualized dose optimization techniques were used for this CT. COMPARISON: 02/01/2021 FINDINGS: Normal soft tissue structures. Normal calvarium. There is mild cerebral atrophy with widening of the extra-axial spaces and ventricular dilatation. There are areas of decreased attenuation within the white matter tracts of the supratentorial brain, consistent with microvascular disease changes. There are small punctate calcifications of the basal ganglia which are seen in the aging brain as a normal variant. Normal brainstem. Normal cerebellum. There is no intracranial hemorrhage. There are no findings of an acute ischemic infarction. Normal visualized paranasal sinuses. CT/Brain/Head without Contrast IMPRESSION: Chronic involutional changes of the brain. Electronically Signed: Steven Daniel MD at 13:59 EST Tel , Service support ,
[2021-03-21 12:00] LABS: Allen Test Positive; Base Excess 2 mmol/L (-2 to +2); Bicarbonate 27.9 mmol/L (22-26); Blood Gas Specimen Type ART; O2 Delivery Device Cannula; PO2 60 mmHG (75-100); SITE R Radial; SO2 89 % (95-99); Total Carbon Dioxide 30 mmol/L; pCO2 50.8 mmHg (35-45); pH 7.35 (7.35-7.45)
[2021-03-21] MEDS: Etomidate 20 MG/10 ML Vial 10 MG IV ×2 (14:56→15:01)
[2021-03-21] MEDS: Propofol 10MG/Ml 1,000 MG/100 ML Bottle 3.5 MG CONT INF (15:05)
--- NOTE | 2021-03-21 15:10 | RAD_ITS ---
HISTORY: endotracheal tube placement. TECHNIQUE: XR Chest 1 View. EXAM TIME: 2021-03-21 15:03. # of images incl. paperwork: 1. COMPARISON:03/20/2021. FINDINGS: LINES/DEVICES: Endotracheal tube tip less than 2 cm above the rose. Nasogastric tube extends to the stomach with the tip excluded from the [id number]. Gaseous distention and dilatation of bowel again seen. Left PICC tip at the junction of the superior vena cava and right atrium. CARDIOMEDIASTINAL BORDERS: Stable with midline sternotomy, pacemaker, and valve prosthesis. Calcified AP window lymph node. LUNGS: Bilateral alveolar opacities likely pneumonia again seen. PLEURA: No pleural effusion or pneumothorax. RAD/Chest 1 View (Portable) IMPRESSION: Endotracheal tube tip in the lower trachea. at 1556 Reported and signed by: Kassie Angel MD Electronically Signed: Kassie Angel MD at 15:55 EST Tel , Service support ,
--- NOTE | 2021-03-21 15:15 | PCM.OP.PRO ---
Assessment & Plan Assessment/Plan (1) Acute respiratory failure: QUALIFIERS: Respiratory failure complication: hypoxia and hypercapnia Qualified Code(s): J96.01 - Acute respiratory failure with hypoxia; J96.02 - Acute respiratory failure with hypercapnia PLAN: Patient became acutely hypoxic today and was put on nonrebreather. His pulse ox dropped down into the 40s. Patient still has a very weak cough and cannot manage his secretions. Decision was made to intubate the patient as it was concerning for just continued deterioration or . Patient's daughter was notified and is agreeing to the procedure. Procedure Report Date of Procedure: 03/21/21 Patient was sedated with 10 mg of etomidate. Using glide scope, his larynx was visualized and patient had copious secretions which were suctioned. Using glide scope patient was intubated with 7.5 endotracheal tube. Patient had copious secretions from within the tube which were suctioned that made bagging easier. Patient received an additional 10 mg after the intubation of etomidate. Patient tolerated the procedure well. Brown the ET tube was at 27cm but did not have left breath sounds. Withdrawn 2 cm 25 cm and had bilateral equal breath sounds. Follow-up chest x-ray showed the ET tube was in proper place. Procedures Hospitalists Procedures: [id number] Insert Emergency Airway
--- NOTE | 2021-03-21 15:52 | NURSING ---
1430 Patient unable to control secretions, unable to cough. This RN and RT attempted to assist patient by oral suctioning and NT suction. Patient o2 sats dropped to 50%, non rebreather applied. Dr. Kevin notified. 1445 Dr. Kevin at bedside, preparing to intubate patient. Etomidate 20mg given in total. See MAR. ETT placed at 1458 7.5/ 27 lip line. However b/l breath sounds not heard. RT pulled ETT back to 25 at the lip, b/l breath sounds heard. Good color change noted. CXR ordered.
[2021-03-21 16:16] LABS: Allen Test Positive; Base Excess 1 mmol/L (-2 to +2); Bicarbonate 29.1 mmol/L (22-26); Blood Gas Specimen Type ART; FI02 75; Mode AC; O2 Delivery Device Adult Vent; PEEP 5; PO2 146 mmHG (75-100); RR 12; SITE R Radial; SO2 98 % (95-99); Total Carbon Dioxide 32 mmol/L; Vt 400; pCO2 77.6 mmHg (35-45); pH 7.18 (7.35-7.45)
[2021-03-21 16:20] LABS: CPK Total, Creatine Kinase 81 U/L (39-308); Triglycerides 147 mg/dL
[2021-03-21 17:50] LABS: Allen Test Positive; Base Excess 0 mmol/L (-2 to +2); Bicarbonate 26.4 mmol/L (22-26); Blood Gas Specimen Type ART; FI02 50; Mode AC; O2 Delivery Device Adult Vent; PEEP 5; PO2 58 mmHG (75-100); RR 15; SITE R Radial; SO2 86 % (95-99); Total Carbon Dioxide 28 mmol/L; Vt 450; pCO2 55.4 mmHg (35-45); pH 7.29 (7.35-7.45)
[2021-03-21] MEDS: Chlorhexidine 15 ML PO (21:57)
[2021-03-21] MEDS: QUEtiapine 100 MG Tablet 150 MG GT (22:01)
[2021-03-21] MEDS: Carvedilol 12.5 MG Tablet PO (22:01)
[2021-03-21] MEDS: 0.9% Normal Saline 250 ML IV.SOLN. IV (22:04)
[2021-03-22] VITALS (38 sets, daily range): BP systolic 96–150; BP diastolic 61–90; PULSE 70–95; RESP 15–34; TEMP 36.9–38.7; O2SAT 89–100
[2021-03-22] MEDS: Acetylcysteine 800 MG/4 ML VIAL.NEB. INHALATION ×4 (02:45→19:40)
[2021-03-22] MEDS: CHLORHEXIDINE GLUC 2% CLOTH 1 EACH TOWELETTE TOPICAL (05:17)
[2021-03-22] MEDS: Piperacil/Tazobactam 3.375 GM Q8 PREMIX IV (05:18)
[2021-03-22] MEDS: Propofol 10MG/Ml 1,000 MG/100 ML Bottle 5.2 MG CONT INF (05:18)
[2021-03-22 05:49] LABS: Partial Thromboplast Time 53.9 Seconds (24.1-36.2)
--- NOTE | 2021-03-22 06:39 | PCM.PN.INT ---
Assessment & Plan Assessment/Plan (1) Acute respiratory failure: QUALIFIERS: Respiratory failure complication: hypoxia and hypercapnia Qualified Code(s): J96.01 - Acute respiratory failure with hypoxia; J96.02 - Acute respiratory failure with hypercapnia PLAN: RECOMMENDATIONS: 1. Continue assist control mode mechanical ventilation. Wean FiO2 for saturations greater than 90%. 2. Continue current sedation regimen. 3. Continue to monitor H&H daily. Transfuse for hemoglobin less than 7 g/dL. 4. Restart tube feeds today. Monitor electrolytes carefully. 5. Continue heparin infusion as tolerated. 6. Continue PPI therapy twice daily. 7. Continue D5W and hold Lasix given hypernatremia and hyperchloremia. 8. Goals of care discussion with the patient's family. IMPRESSIONS: 1. Acute hypoxemic and hypercarbic respiratory failure status post V. fib cardiac arrest The patient was initially admitted for acute alcohol detoxification and was found unresponsive in V. fib arrest. The patient did receive ACLS with eventual return of spontaneous circulation. He was intubated as a consequence of the aforementioned. Although the patient was able to be extubated on March 17, he did require reintubation on March 21. Plan to continue to wean FiO2 and PEEP for saturations greater than 90%. Okay to restart tube feeds today. The patient continues to have significant secretions and remains on antimicrobials due to Pseudomonas isolated from sputum culture. 2. Acute kidney injury Resolved. Likely prerenal in etiology/ischemic ATN in the setting of cardiac arrest. Anticipate improvement with stabilization of hemodynamics. Continue to monitor urine output for now. Avoid nephrotoxic medications. No current indication for renal replacement therapy. 3. Acute liver injury Resolved. Likely secondary to cardiac arrest and hemodynamic instability leading to hypoperfusion. Anticipate improvement with stabilization of hemodynamics. 4. Hypernatremia/hypokalemia Improving. Continue D5W for now. Aggressive electrolyte repletion as ordered. 5. Acute alcohol withdrawal Resolved. Continue current sedation regimen including Precedex until patient can tolerate Seroquel dosing. 6. Anemia Okay to continue heparin at this time as there does not appear to be any clinical bleeding. Continue PPI therapy twice daily. Transfuse if hemoglobin drops below 7 g/dL. 7. History of prosthetic mitral valve/hypertension/hyperlipidemia Complicates care, management, recovery and prognosis. Continue home medications as indicated. Will need to clarify goals of care with the patient's family. TIME: 36 minutes of critical care time, independent of procedures, was spent addressing the patient's acute hypoxemic and hypercarbic respiratory failure, acute kidney injury, hypernatremia, anemia, review of all data and collaboration with the care team. Subjective Subjective The patient was seen and examined at the bedside this morning. Events from the last 24 hours have been reviewed. Yesterday afternoon, the patient became acutely hypoxemic and was unable to manage his airway secretions. The patient ultimately required reintubation. He is currently on assist control mode mechanical ventilation with an FiO2 requirement of 40% and PEEP of 5. The patient did receive a unit of packed red blood cells yesterday, due to a hemoglobin of 6.9 g/dL. The patient is currently documented to be overall net +18 L for the hospitalization. Hemoglobin is stable at 8.7 g/dL. Sodium has improved to 151 with a potassium of 2.6. Renal function is stable. Objective Data Objective Data The patient's most recent lab work, culture data and imaging studies have all been personally reviewed. Surface echocardiogram demonstrated normal LV size with moderate global LV systolic dysfunction and ejection fraction of 35%. Rapid coronavirus antigen testing was negative. Sputum culture dated March 18 was positive for Pseudomonas aeruginosa. Vital Signs: Vital Signs Temp Pulse Resp BP Pulse Ox 100.0 F H 84 28 H 97/63 95 03/22/21 00:00 03/22/21 04:00 03/22/21 05:00 03/22/21 04:00 03/22/21 04:00 Oxygen Flow Rate (L/min) 15 Oxygen Delivery Method Mechanical Ventilator Weight: 58 kg Body Mass Index (BMI) 23.6 Intake & Output: Intake and Output for Last 24 Hours 03/20/21 03/21/21 03/22/21 23:59 23:59 23:59 Intake Total 3443.0833 / 3443.0833 3263.31 / 3296.01 937.73 / 937.73 Output Total 225 / 675 450 / 450 Balance 3443.0833 / 3443.0833 3038.31 / 2621.01 487.73 / 487.73 Medical Nutrition Assessment Dietitian: Malnutrition Criteria Met Start: 03/20/21 08:54 Freq: Status: Active Protocol: Document 03/21/21 10:22 FABRICE (Rec: 03/21/21 10:22 SLA [id number]) Nutrition Malnutrition Evidence of Malnutrition Exists Yes Malnutrition (severe): Acute Illness/Injury Evidenced By Suboptimal Energy Intake ( Severe),Weight Loss (Severe) Intake Problem Inadequate Oral Intake Etiology r/t dysphagia, altered mental status Signs/Symptoms as evidenced by inability to consume sufficient nutrition via PO diet x 4 days Status Active Problem Clinical Problem Acute Disease or Injury Related Malnutrition Etiology severe, acute malnutrition r/t inadequate energy intake d/t mechanical intubation, dysphagia s/p extubation Signs/Symptoms as evidenced by unintentional wt loss of 4.3% since adm, estimated PO Intake meeting < 50% of estimated energy needs >5 days. Status Active Problem Recommendation Dietitian Recommendations/Changes Regular diet- texture/ consistency modification per POWER MACHINE OPERATOR. 4 oz Ensure Enlive w/ medpass when PO diet advanced. If unable to advance PO diet in next 24 hours, recommend placement of NGT or PEG for nutrition support- consult RDN for further recommendations. Lab / Micro Data Attestation: I reviewed the patient's lab results. Result Diagrams: 03/22/21 05:25 03/22/21 05:25 Labs: Laboratory Results - last 24 hr 03/10/21 06:35: Crossmatch See Detail 03/21/21 02:35: Total Creatine Kinase 81, Triglycerides 147 03/21/21 05:55: Blood Type O POSITIVE, Antibody Screen NEGATIVE, Crossmatch See Detail 03/21/21 10:45: Ammonia 47.0 H 03/22/21 05:25: APTT 53.9 H Micro: Microbiology 03/20/21 23:54 Nasal Secretion SARS-CoV-2 Antigen (Rapid) - Final 03/18/21 13:00 Sputum, Induced/Lukens Gram Stain - Final 03/18/21 13:00 Sputum, Induced/Lukens Respiratory Culture - Final Pseudomonas aeroginosa 03/18/21 10:35 Blood Culture (Wb) - Right Hand Blood Culture - Preliminary No growth in 48 hours. 03/18/21 10:00 Blood Culture (Wb) - Central Line Blood Culture - Preliminary No growth in 48 hours. 03/11/21 12:10 Blood Culture (Wb) - Right Forearm Blood Culture - Final No growth in 5 days. 03/11/21 12:15 Blood Culture (Wb) - Left Forearm Blood Culture - Final No growth in 5 days. 03/09/21 07:53 Blood Culture (Wb) - Anticubital Right Blood Culture - Final Coag Negative Staph 03/09/21 07:55 Blood Culture (Wb) - Anticubital Left Blood Culture - Final No growth in 5 days. 03/09/21 07:50 Urine Catheter - Catheter Urine Culture - Final Culture exhibits no growth. 03/07/21 23:00 Sputum, Induced/Lukens Gram Stain - Final 03/07/21 23:00 Sputum, Induced/Lukens Respiratory Culture - Final Mixed normal respiratory héctor. No Streptococcus pneumoniae, beta-hemolytic Streptococcus or Staphylococcus aureus isolated. 03/07/21 06:08 Nasal Secretion SARS-CoV-2 Antigen (Rapid) - Final ABG Data ABG results: ABG 03/21/21 03/21/21 03/21/21 11:57 16:09 17:43 Specimen Type ART ART ART Sample Site R Radial R Radial R Radial pH 7.35 7.18 L* 7.29 L Bicarbonate Actual 27.9 H 29.1 H 26.4 H Total CO2 30 32 28 Base Excess 2 1 0 O2 Saturation 89 L 98 86 L O2 % 75 50 ABG pCO2 50.8 H 77.6 H* 55.4 H ABG pO2 60 L 146 H 58 L Lev Test Positive Positive Positive Respiration Rate 12 15 O2 Delivery Device Cannula Adult Vent Adult Vent Liter Flow 6.0 Vent Mode AC AC Tidal Volume 400 450 POC PEEP 5 5 Crit Call To/Read Back Yes Blood Gas Notified Whom Cat Radiography Diagnostic Testing: Radiology Impression Brain CT 03/21/21 10:07 IMPRESSION: Chronic involutional changes of the brain. Electronically Signed: Steven Daniel MD at 13:59 EST Tel , Service support , Chest X-Ray 03/21/21 15:10 IMPRESSION: Endotracheal tube tip in the lower trachea. at 1556 Reported and signed by: Kassie Angel MD Electronically Signed: Kassie Angel MD at 15:55 EST Tel , Service support , Physical Exam Const no apparent distress General Appearance: intubated and patient mechanically ventilated HEENT normocephalic and head/scalp atraumatic Mouth: endotracheal tube in place and OG tube in place Eyes PERRL Neck supple General: trachea midline Resp Effort and Inspection: tachypneic Auscultation: rhonchi and diminished lung sounds Cardio regular rate and regular rhythm GI normal to inspection, nondistended, normoactive bowel sounds Extremity no clubbing, cyanosis or edema Skin no rashes or lesions noted Neuro Sensorium / Orientation: sedated on vent Charges/Coding Procedures Hospitalists Procedures: 53813 Critial Care 1st Hr
[2021-03-22 06:56] LABS: Basophil# 0.03 X10^3/uL; Basophil% 0.3 % (0-1); Eosinophil# 0.33 X10^3/uL; Eosinophils% 3.7 % (0-5); Hematocrit 28.7 % (40-54); Hemoglobin 8.7 g/dL (13.0-16.5); Lymphocyte % 13.5 % (19-41); Mean Corp Hgb Conc 30.3 g/dL (32-36); Mean Corpuscular Volume 95.7 fL (80-94); Mean Platelet Vol. 11.4 fl (6.2-12.0); Monocyte# 0.28 X10^3/uL; Monocyte% 3.2 % (0-10); NRBC Flagged by Analyzer 0.2 % (0-5); Neutrophil % 78.8 % (47-70); Platelet Count 382 K/mm3 (150-450); RBC Distribution Width CV 18.6 % (11.6-14.6); RBC Distribution Width SD 64.9 fl (35.1-43.9); White Blood Count 8.9 K/mm3 (4.4-11.0)
[2021-03-22] MEDS: Albuterol 2.5 MG/3 ML VIAL.NEB. INHALATION ×3 (07:03→19:40)
[2021-03-22 07:14] LABS: ALB/GLOB Ratio 0.3 RATIO (0.9-2.4); AST(SGOT) 32 U/L (15-37); Alanine Aminotransfer ALT/SGPT 38 U/L (16-61); Albumin, Serum 1.4 g/dL (3.2-5.0); Alkaline Phosphatase 160 U/L (45-117); Anion Gap 6 (5-15); BUN 12 mg/dL (7-18); BUN/Creat Ratio 10.1 RATIO (10-20); Chloride 118 mmol/L (98-107); Creatinine, Serum 1.19 mg/dL (0.70-1.30); EST Glomerular Filtration Rate 66 mL/min (>60); Est Glom Filt Rate - Afr Amer 79 mL/min (>60); Estimated Creatinine Clearance 51.14 ml/min; Globulin 5.1 g/dL (2.2-4.2); Glucose 119 mg/dL (74-106); Magnesium 1.7 mg/dL (1.6-2.6); Phosphorus 2.1 mg/dL (2.5-4.9); Potassium 2.6 mmol/L (3.5-5.1); Protein, Total 6.5 g/dL (6.4-8.2); Sodium Level 151 mmol/L (136-145)
[2021-03-22] MEDS: Dexmedetomidine 1,000 mcg in 0.9% NS 240 mL 22.5 MCG CONT INF ×2 (07:28→18:43)
--- NOTE | 2021-03-22 07:37 | PCM.PN.HOSP ---
Subjective Subjective Patient was extubated and had to be reintubated on 03/21/2021 as a result of worsening respiratory symptoms Objective Data Objective Data Vital Signs: Vital Signs Temp Pulse Resp BP Pulse Ox 100.1 F H 88 23 H 145/89 H 98 03/22/21 05:00 03/22/21 07:06 03/22/21 07:06 03/22/21 07:00 03/22/21 07:06 Oxygen Flow Rate (L/min) 15 Oxygen Delivery Method Mechanical Ventilator Weight: 59.3 kg Body Mass Index (BMI) 23.6 Intake & Output: Intake and Output for Last 24 Hours 03/20/21 03/21/21 03/22/21 23:59 23:59 23:59 Intake Total 3443.0833 / 3443.0833 3263.31 / 3296.01 1015.47 / 1015.47 Output Total 225 / 675 925 / 925 Balance 3443.0833 / 3443.0833 3038.31 / 2621.01 90.47 / 90.47 Medical Nutrition Assessment Dietitian: Malnutrition Criteria Met Start: 03/20/21 08:54 Freq: Status: Active Protocol: Document 03/21/21 10:22 FABRICE (Rec: 03/21/21 10:22 FABRICE [id number]) Nutrition Malnutrition Evidence of Malnutrition Exists Yes Malnutrition (severe): Acute Illness/Injury Evidenced By Suboptimal Energy Intake ( Severe),Weight Loss (Severe) Intake Problem Inadequate Oral Intake Etiology r/t dysphagia, altered mental status Signs/Symptoms as evidenced by inability to consume sufficient nutrition via PO diet x 4 days Status Active Problem Clinical Problem Acute Disease or Injury Related Malnutrition Etiology severe, acute malnutrition r/t inadequate energy intake d/t mechanical intubation, dysphagia s/p extubation Signs/Symptoms as evidenced by unintentional wt loss of 4.3% since adm, estimated PO Intake meeting < 50% of estimated energy needs >5 days. Status Active Problem Recommendation Dietitian Recommendations/Changes Regular diet- texture/ consistency modification per SYSTEMS TESTING LABORATORY TECHNICIAN. 4 oz Ensure Enlive w/ medpass when PO diet advanced. If unable to advance PO diet in next 24 hours, recommend placement of NGT or PEG for nutrition support- consult RDN for further recommendations. Lab / Micro Data Result Diagrams: 03/22/21 05:25 03/22/21 05:25 Labs: Laboratory Results - last 24 hr 03/10/21 06:35: Crossmatch See Detail 03/21/21 02:35: Total Creatine Kinase 81, Triglycerides 147 03/21/21 05:55: Blood Type O POSITIVE, Antibody Screen NEGATIVE, Crossmatch See Detail 03/21/21 10:45: Ammonia 47.0 H 03/22/21 05:25: APTT 53.9 H 03/22/21 05:25: WBC 8.9, RBC 3.00 L, Hgb 8.7 L, Hct 28.7 L, MCV 95.7 H, MCH 29.0, MCHC 30.3 L, RDW Std Deviation 64.9 H, RDW Coeff of Harjeet 18.6 H, Plt Count 382, MPV 11.4, Immature Gran % (Auto) 0.500, Neut % (Auto) 78.8 H, Lymph % (Auto) 13.5 L, [place] % (Auto) 3.2, Eos % (Auto) 3.7, Baso % (Auto) 0.3, Absolute Neuts (auto) 7.0, Absolute Lymphs (auto) 1.20, Nucleated RBC % 0.2 03/22/21 05:25: Sodium 151 H, Potassium 2.6 L*, Chloride 118 H, Carbon Dioxide 27.0, Anion Gap 6, BUN 12, Creatinine 1.19, Estim Creat Clear Calc 51.14, Est GFR (MDRD) Af Amer 79, Est GFR (MDRD) Non-Af 66, BUN/Creatinine Ratio 10.1, Glucose 119 H, Calcium 8.0 L, Phosphorus 2.1 L, Magnesium 1.7, Total Bilirubin 0.80, AST 32, ALT 38, Alkaline Phosphatase 160 H, Total Protein 6.5, Albumin 1.4 L, Globulin 5.1 H, Albumin/Globulin Ratio 0.3 L Micro: Microbiology 03/20/21 23:54 Nasal Secretion SARS-CoV-2 Antigen (Rapid) - Final 03/18/21 13:00 Sputum, Induced/Lukens Gram Stain - Final 03/18/21 13:00 Sputum, Induced/Lukens Respiratory Culture - Final Pseudomonas aeroginosa 03/18/21 10:35 Blood Culture (Wb) - Right Hand Blood Culture - Preliminary No growth in 48 hours. 03/18/21 10:00 Blood Culture (Wb) - Central Line Blood Culture - Preliminary No growth in 48 hours. 03/11/21 12:10 Blood Culture (Wb) - Right Forearm Blood Culture - Final No growth in 5 days. 03/11/21 12:15 Blood Culture (Wb) - Left Forearm Blood Culture - Final No growth in 5 days. 03/09/21 07:53 Blood Culture (Wb) - Anticubital Right Blood Culture - Final Coag Negative Staph 03/09/21 07:55 Blood Culture (Wb) - Anticubital Left Blood Culture - Final No growth in 5 days. 03/09/21 07:50 Urine Catheter - Catheter Urine Culture - Final Culture exhibits no growth. 03/07/21 23:00 Sputum, Induced/Lukens Gram Stain - Final 03/07/21 23:00 Sputum, Induced/Lukens Respiratory Culture - Final Mixed normal respiratory héctor. No Streptococcus pneumoniae, beta-hemolytic Streptococcus or Staphylococcus aureus isolated. 03/07/21 06:08 Nasal Secretion SARS-CoV-2 Antigen (Rapid) - Final ABG Data ABG results: ABG 03/21/21 03/21/21 03/21/21 11:57 16:09 17:43 Specimen Type ART ART ART Sample Site R Radial R Radial R Radial pH 7.35 7.18 L* 7.29 L Bicarbonate Actual 27.9 H 29.1 H 26.4 H Total CO2 30 32 28 Base Excess 2 1 0 O2 Saturation 89 L 98 86 L O2 % 75 50 ABG pCO2 50.8 H 77.6 H* 55.4 H ABG pO2 60 L 146 H 58 L Lev Test Positive Positive Positive Respiration Rate 12 15 O2 Delivery Device Cannula Adult Vent Adult Vent Liter Flow 6.0 Vent Mode AC AC Tidal Volume 400 450 POC PEEP 5 5 Crit Call To/Read Back Yes Blood Gas Notified Whom Cat Radiography Diagnostic Testing: Radiology Impression Brain CT 03/21/21 10:07 IMPRESSION: Chronic involutional changes of the brain. Electronically Signed: Steven Daniel MD at 13:59 EST Tel , Service support , Chest X-Ray 03/21/21 15:10 IMPRESSION: Endotracheal tube tip in the lower trachea. at 1556 Reported and signed by: Kassie Angel MD Electronically Signed: Kassie Angel MD at 15:55 EST Tel , Service support , Physical Exam Narrative GENERAL: Awake on the vent HEENT: Atraumatic; EYES; Anicteric, Normal Conjunctiva NECK; supple, normal thyroid, RESPIRATORY: Diminished to auscultation CARDIOVASCULAR: Regular S1 S2, GI: soft, normoactive bowel sounds, : No Renal angle tenderness; EXTREMITIES: No edema, no clubbing, MUSCULOSKELETAL: no muscle waisting NEURO: Awake on the vent, does not follow commands Assessment & Plan Assessment/Plan (1) Acute respiratory failure: QUALIFIERS: Respiratory failure complication: hypoxia and hypercapnia Qualified Code(s): J96.01 - Acute respiratory failure with hypoxia; J96.02 - Acute respiratory failure with hypercapnia PLAN: Patient is a 61-year-old admitted with acute alcohol withdrawal with desire for detoxification. Patient was apparently found in the emergency department with face down. He was found unresponsive was found to be in V. fib. CODE BLUE was called patient was successfully resuscitated with ACLS with ROSC SC. Intubated and admitted to the intensive care unit 1. Acute hypoxic respiratory failure ?Secondary to above patient was intubated following ROSC admitted to the intensive care unit placed on the vent consult placed to pulmonary/intensive care for vent management ?03/09/2021; patient is awake on the vent however does not follow any purposeful commands 03/10/2021. Patient remains on the vent currently sedated ?03/11/2021; patient remains sedated on the vent -03/12/2021; remains on the vent 03/13/2021; vent with assist control mode FiO2 of 35% -03/13/2021.Patient remains on the vent. Family to decide on the on the patient's CODE STATUS -03/22/2021. Patient was extubated on 03/17/2021 had to be reintubated on 03/21/2021 due to worsening respiratory symptoms 2. Cardiopulmonary arrest ?Secondary to ventricular fibrillation. Patient was successfully resuscitated using ACLS protocol. Cardiology consulted 3. Fever ?Cultures so far positive for coagulase staph negative.. Repeat blood culture sent in view of patient continued to spike fever. Currently on cefepime and vancomycin. -03/12/2021.Patient remains sedated on the vent. Still continues to spike fevers. Temperature maximum over the past 24 hours 101.5. Repeat blood cultures sent. ?03/13/1821; repeat blood cultures pending ?03/14/2021. Patient continues to spike fevers. Repeat blood cultures so far negative to date 4. Valvular heart disease ?With history of mitral valve prosthesis. Patient is on systemic anticoagulation with Coumadin INR was subtherapeutic started on heparin ?03/11/2021. Heparin has been held the day prior in view of significant drop in his hemoglobin level resumed starting today 5. 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 Paroxysmal A. fib ?Rate controlled 7. Chronic alcohol dependence ?Plan was for patient to have undergone detoxification however he coded prior to initiation of the program 8. Chronic heart failure with reduced ejection fraction ?Echo obtained on 08/11/2020 demonstrated EF of 60% -Echo repeated during this hospital stay demonstrated EF of 35% consistent with heart failure with reduced ejection fraction 9. Anemia - Secondary to chronic disorder monitoring H&H and transfuse if patient becomes symptomatic or hemoglobin falls below 7 ?03/10/2021; hemoglobin down to 7.2 -03/11/2021; patient was transfused with 2 unit PRBC on 03/10/2021 -03/14/2021; hemoglobin down to 7.9 10. Acute transaminitis ?Secondary to shock liver from patient cardiopulmonary arrest monitoring with daily LFTs 11. Essential hypertension ?Per history 12. Tobacco dependence 13. DVT prophylaxis ?On systemic anticoagulation with heparin Charges/Coding Visit Charges Inpatient E&M: 07745 Subs Hosp L3
--- NOTE | 2021-03-22 09:32 | CASEMGMT ---
SOCIAL WORK ICU rounds completed. Dr. Roberts requesting family meeting with patient's daughters to discuss plan of care. Call to patient's daughter, Viviana. Viviana to speak with sisters and call this worker back with time all 3 daughters able to meet with Dr. Roberts. Fely John, HAND SPRING FORMER, SIDING MECHANIC
[2021-03-22] MEDS: Potassium Chloride Oral Soln 20 MEQ/15 ML UDC 40 MEQ PO (09:46)
[2021-03-22] MEDS: Potassium Chloride 10mEq/100mL 10 MEQ/100 ML IV.SOLN. 200 MEQ IV BOLUS ×4 (09:47→13:07)
[2021-03-22] MEDS: QUEtiapine 100 MG Tablet 150 MG GT ×2 (09:52→20:44)
[2021-03-22] MEDS: Chlorhexidine 15 ML PO ×2 (09:53→20:45)
--- NOTE | 2021-03-22 12:40 | CPS ---
switched vent to V200 because pt is on minimal settings and 980 is needed for critical pt. no complications w/this change. vent check & auscultation done to confirm no complications.
--- NOTE | 2021-03-22 13:07 | TELEMED_ITS ---
SOC Telemed has confirmed receipt of a request for visit. This document confirms receipt of the order initiating the consult. To find the results of the consultation, please view the patient's reports for the scanned Telemed Consult.
--- NOTE | 2021-03-22 13:10 | CASEMGMT ---
SOCIAL WORK Received call from patient's daughter who reports they are en route to the hospital to meet with Dr. Roberts regarding plan of care. Nursing salome. Fely John, PATIENT FINANCIAL SERVICES COORDINATOR, GLOBAL CONSUMER SECTOR VICE PRESIDENT
[2021-03-22] MEDS: levoFLOXacin IV 750 MG/150 ML BAG 100 MG IV (13:15)
[2021-03-22] MEDS: Acetaminophen 650 MG Suppository RC (13:31)
[2021-03-22 13:41] LABS: Partial Thromboplast Time 68.8 Seconds (24.1-36.2)
--- NOTE | 2021-03-22 16:13 | CHAPLAIN ---
Type of Pastoral Visit _x__ Initial Visit ___ Follow-up Visit ___ On-call Visit ___ General Patient Visit ___ Spiritual Assessment ___ Family Conference ___ Bereavement ___ Rapid Response ___ Code Blue ___ Other (describe below) Pastoral Care Referral From ___ Patient _x__ Family _x__ Nurse ___ Physician ___ It Teacher ___ Aeronautical Research Engineer ___ Other (describe below) Sacrament/Intervention _x__ Active listening ___ Anointing ___ Jainism ___ Bereavement ___ Communion _x__ Pascale exploration ___ ___ Life review _x__ Prayer ___ Reconciliation ___ Sacrament of Sick _x__ Supportive presence ___ Wedding ___ Other (describe below) Pastoral Comments met with family of three daughters in waiting area to introduce role/self and to offer support; daughters desire for this bottom turning lathe turner to go into room and pray with the patient; one daughter in particular is adamant about giving everything to pt to survive but other daughters are more concerned about the comfort of patient; daughters discuss and ask questions about determining how to know what the patient wants; took family into room and gave presence, prayer, and support; upon entering the room this bottom turning lathe turner recognized the patient as someone that has been supported before by this bottom turning lathe turner and thus was able to give comfort to daughters about prior prayers and conversation on a spiritual nature
--- NOTE | 2021-03-22 19:18 | CASEMGMT ---
SOCIAL WORK Much time spent with patient's children providing emotional support and discussing plan of care and options (trach and peg vs hospice). After lengthy discussion, daughters in agreement with meeting with [facility] tomorrow. Updated nursing. Order to be obtained. Call to on-call hospice nurse to update on referral. Referral faxed. Hospice to follow up with patient's daughter, Viviana tomorrow to schedule time. SW to follow up. Plan: Hospice Consult tomorrow Fely John, TRAIN DISPATCHER, LADLE CAR OPERATOR
[2021-03-22] MEDS: Vital AF 1.2 Cal Liquid 1,000 ML 50 ML GT (20:41)
[2021-03-22] MEDS: Carvedilol 12.5 MG Tablet PO (20:44)
[2021-03-23] VITALS (36 sets, daily range): BP systolic 104–141; BP diastolic 58–98; PULSE 69–101; RESP 17–36; TEMP 37–37.9; O2SAT 90–97
[2021-03-23] MEDS: Acetylcysteine 800 MG/4 ML VIAL.NEB. INHALATION ×4 (01:33→19:25)
[2021-03-23] MEDS: Albuterol 2.5 MG/3 ML VIAL.NEB. INHALATION ×4 (01:33→19:25)
[2021-03-23] MEDS: Propofol 10MG/Ml 1,000 MG/100 ML Bottle 5.2 MG CONT INF (02:07)
[2021-03-23 04:28] LABS: Absolute Lymphocyte Count 0.92 X10^3/uL (0.83-4.51); Absolute Neutrophil Count 4.9 X10^3/uL (2.0-7.7); Basophil# 0.02 X10^3/uL; Basophil% 0.3 % (0-1); Eosinophil# 0.32 X10^3/uL; Eosinophils% 4.9 % (0-5); Hematocrit 25.4 % (40-54); Hemoglobin 7.9 g/dL (13.0-16.5); Lymphocyte # 0.92 X10^3/ul (0.83-4.51); Lymphocyte % 14.1 % (19-41); Mean Corp Hgb Conc 31.1 g/dL (32-36); Mean Corpuscular Hgb 29.4 pg (27.0-32.0); Mean Corpuscular Volume 94.4 fL (80-94); Mean Platelet Vol. 10.7 fl (6.2-12.0); Monocyte% 4.6 % (0-10); NRBC Flagged by Analyzer 0 % (0-5); Neutrophil # 4.94 X10^3/uL (2.7-7.7); Neutrophil % 75.6 % (47-70); Platelet Count 293 K/mm3 (150-450); RBC Distribution Width CV 18.6 % (11.6-14.6); Red Blood Count 2.69 M/mm3 (4.6-6.2); White Blood Count 6.5 K/mm3 (4.4-11.0)
[2021-03-23 04:50] LABS: Partial Thromboplast Time 66.3 Seconds (24.1-36.2)
[2021-03-23 05:15] LABS: Anion Gap 5 (5-15); BUN 8 mg/dL (7-18); BUN/Creat Ratio 9.9 RATIO (10-20); Calcium,Total 7.5 mg/dL (8.5-10.1); Chloride 116 mmol/L (98-107); Creatinine, Serum 0.81 mg/dL (0.70-1.30); EST Glomerular Filtration Rate 102 mL/min (>60); Est Glom Filt Rate - Afr Amer 123 mL/min (>60); Estimated Creatinine Clearance 75.13 ml/min; Glucose 114 mg/dL (74-106); Magnesium 1.6 mg/dL (1.6-2.6); Phosphorus 2.6 mg/dL (2.5-4.9); Potassium 2.7 mmol/L (3.5-5.1); Sodium Level 147 mmol/L (136-145)
[2021-03-23] MEDS: Acetaminophen 650 MG Suppository RC (05:32)
[2021-03-23] MEDS: Dexmedetomidine 1,000 mcg in 0.9% NS 240 mL 15 MCG CONT INF (05:47)
--- NOTE | 2021-03-23 07:11 | PN.CC_ITS ---
Assessment & Plan Assessment/Plan (1) Acute respiratory failure: QUALIFIERS: Respiratory failure complication: hypoxia and hypercapnia Qualified Code(s): J96.01 - Acute respiratory failure with hypoxia; J96.02 - Acute respiratory failure with hypercapnia PLAN: RECOMMENDATIONS: 1. Continue patient on pressure control as tolerated. 2. Continue current sedation regimen. 3. Continue to monitor H&H daily. Transfuse for hemoglobin less than 7 g/dL. 4. Continue tube feeds as tolerated and replete electrolytes. 5. Continue heparin infusion as tolerated. 6. Continue PPI therapy twice daily. 7. Continue D5W and hold Lasix given hypernatremia and hyperchloremia. 8. Await final decision regarding goals of care from the patient's family. IMPRESSIONS: 1. Acute hypoxemic and hypercarbic respiratory failure status post V. fib cardiac arrest The patient was initially admitted for acute alcohol detoxification and was found unresponsive in V. fib arrest. The patient did receive ACLS with eventual return of spontaneous circulation. He was intubated as a consequence of the aforementioned. Although the patient was able to be extubated on March 17, he did require reintubation on March 21. Plan to continue to wean FiO2 and PEEP for saturations greater than 90%. Okay to continue tube feeds as tolerated. The patient continues to have significant secretions and remains on antimicrobials due to Pseudomonas isolated from sputum culture. 2. Acute kidney injury Resolved. Likely prerenal in etiology/ischemic ATN in the setting of cardiac arrest. Anticipate improvement with stabilization of hemodynamics. Continue to monitor urine output for now. Avoid nephrotoxic medications. No current indication for renal replacement therapy. 3. Acute liver injury Resolved. Likely secondary to cardiac arrest and hemodynamic instability leading to hypoperfusion. Anticipate improvement with stabilization of hemodynamics. 4. Hypernatremia/hypokalemia Improving. Continue D5W for now. Aggressive electrolyte repletion as ordered. 5. Acute alcohol withdrawal Resolved. Continue current sedation regimen including Precedex until patient can tolerate Seroquel dosing. 6. Anemia Okay to continue heparin at this time as there does not appear to be any clinical bleeding. Continue PPI therapy twice daily. Transfuse if hemoglobin drops below 7 g/dL. 7. History of prosthetic mitral valve/hypertension/hyperlipidemia Complicates care, management, recovery and prognosis. Continue home medications as indicated. Will need to clarify goals of care with the patient's family. TIME: 33 minutes of critical care time, independent of procedures, was spent addressing the patient's acute hypoxemic and hypercarbic respiratory failure, acute kidney injury, hypernatremia, anemia, review of all data and collaboration with the care team. Subjective Subjective The patient was seen and examined at the bedside this morning. Events from the last 24 hours have been reviewed. The patient currently has a low-grade fever but remains otherwise hemodynamically stable. He is currently on pressure support mode mechanical ventilation with an FiO2 requirement of 25%. Secretion output is slowly improving. I did meet with the patient's family yesterday regarding overall prognosis and goals of care. However, they were unable to come to a definitive conclusion with regard to whether they would want to proceed with trach and PEG if the patient did not do well with extubation a second time. Hemoglobin is down to 7.9 g/dL this morning. Sodium has improved to 147 with a potassium of 2.7 and chloride of 116. Objective Data Objective Data The patient's most recent lab work, culture data and imaging studies have all been personally reviewed. Surface echocardiogram demonstrated normal LV size w ith moderate global LV systolic dysfunction and ejection fraction of 35%. Rapid coronavirus antigen testing was negative. Sputum culture dated March 18 was positive for Pseudomonas aeruginosa. Vital Signs: Vital Signs Temp Pulse Resp BP Pulse Ox 100.2 F H 94 26 H 141/64 H 94 03/23/21 06:00 03/23/21 07:00 03/23/21 07:00 03/23/21 07:00 03/23/21 07:00 Oxygen Flow Rate (L/min) 15 Oxygen Delivery Method Mechanical Ventilator Weight: 59.6 kg Body Mass Index (BMI) 23.6 Intake & Output: Intake and Output for Last 24 Hours 03/21/21 03/22/21 03/23/21 23:59 23:59 23:59 Intake Total 3263.31 / 3296.01 3886.73 / 4086.93 893.21 / 893.21 Output Total 225 / 675 23600 / 35072 875 / 875 Balance 3038.31 / 2621.01 -30690.27 / -17063.07 18.21 / 18.21 Medical Nutrition Assessment Dietitian: Malnutrition Criteria Met Start: 03/20/21 08:54 Freq: Status: Active Protocol: Document 03/22/21 10:53 AG (Rec: 12/27/21 10:53 [id number]) Nutrition Malnutrition Evidence of Malnutrition Exists Yes Malnutrition (severe): Acute Illness/Injury Evidenced By Suboptimal Energy Intake ( Severe),Weight Loss (Severe) Intake Problem Inadequate Oral Intake Etiology r/t dysphagia, altered mental status Signs/Symptoms as evidenced by inability to consume sufficient nutrition via PO diet x5 days Status Active Problem Clinical Problem Acute Disease or Injury Related Malnutrition Etiology severe, acute malnutrition r/t inadequate energy intake d/t mechanical intubation, dysphagia s/p extubation Signs/Symptoms as evidenced by unintentional wt loss of 4.3% since adm, estimated PO Intake meeting < 50% of estimated energy needs >5 days. Status Active Problem Recommendation Dietitian Recommendations/Changes NPO; Vital AF 1.2 via OGT at goal rate of 50mL/hour w/ 150mL H2O flush every 4 hours to provide 1440 calories, 90 g protein, and 1873mL total fluid/day. Would start at 20mL /hour and increase by 10mL every 12 hours as tolerated until goal rate is achieved. Close monitoring of electrolytes given malnutrition, lack of PO intake x 5 days. Will order mag/phos. Lab / Micro Data Attestation: I reviewed the patient's lab results. Result Diagrams: 03/23/21 04:15 03/23/21 04:15 Labs: Laboratory Results - last 24 hr 03/22/21 05:25: Sodium 151 H, Potassium 2.6 L*, Chloride 118 H, Carbon Dioxide 27.0, Anion Gap 6, BUN 12, Creatinine 1.19, Estim Creat Clear Calc 51.14, Est GFR (MDRD) Af Amer 79, Est GFR (MDRD) Non-Af 66, BUN/Creatinine Ratio 10.1, Glucose 119 H, Calcium 8.0 L, Phosphorus 2.1 L, Magnesium 1.7, Total Bilirubin 0.80, AST 32, ALT 38, Alkaline Phosphatase 160 H, Total Protein 6.5, Albumin 1.4 L, Globulin 5.1 H, Albumin/Globulin Ratio 0.3 L 03/22/21 13:20: APTT 68.8 H 03/23/21 04:15: Sodium 147 H, Potassium 2.7 L*, Chloride 116 H, Carbon Dioxide 26.0, Anion Gap 5, BUN 8, Creatinine 0.81, Estim Creat Clear Calc 75.13, Est GFR (MDRD) Af Amer 123, Est GFR (MDRD) Non-Af 102, BUN/Creatinine Ratio 9.9 L, Gluco se 114 H, Calcium 7.5 L, Phosphorus 2.6, Magnesium 1.6 03/23/21 04:15: WBC 6.5, RBC 2.69 L, Hgb 7.9 L, Hct 25.4 L, MCV 94.4 H, MCH 29.4, MCHC 31.1 L, RDW Std Deviation 64.0 H, RDW Coeff of Harjeet 18.6 H, Plt Count 293, MPV 10.7, Immature Gran % (Auto) 0.500, Neut % (Auto) 75.6 H, Lymph % (Auto) 14.1 L, [place] % (Auto) 4.6, Eos % (Auto) 4.9, Baso % (Auto) 0.3, Absolute Neuts (auto) 4.9, Absolute Lymphs (auto) 0.92, Nucleated RBC % 0 03/23/21 04:15: APTT 66.3 H Micro: Microbiology 03/21/21 15:25 Sputum, Induced/Lukens Gram Stain - Final 03/21/21 15:25 Sputum, Induced/Lukens Respiratory Culture - Preliminary GNR lactose devops engineer 03/20/21 23:54 Nasal Secretion SARS-CoV-2 Antigen (Rapid) - Final 03/18/21 13:00 Sputum, Induced/Lukens Gram Stain - Final 03/18/21 13:00 Sputum, Induced/Lukens Respiratory Culture - Final Pseudomonas aeroginosa 03/18/21 10:35 Blood Culture (Wb) - Right Hand Blood Culture - Preliminary No growth in 48 hours. 03/18/21 10:00 Blood Culture (Wb) - Central Line Blood Culture - Preliminary No growth in 48 hours. 03/11/21 12:10 Blood Culture (Wb) - Right Forearm Blood Culture - Final No growth in 5 days. 03/11/21 12:15 Blood Culture (Wb) - Left Forearm Blood Culture - Final No growth in 5 days. 03/09/21 07:53 Blood Culture (Wb) - Anticubital Right Blood Culture - Final Coag Negative Staph 03/09/21 07:55 Blood Culture (Wb) - Anticubital Left Blood Culture - Final No growth in 5 days. 03/09/21 07:50 Urine Catheter - Catheter Urine Culture - Final Culture exhibits no growth. 03/07/21 23:00 Sputum, Induced/Lukens Gram Stain - Final 03/07/21 23:00 Sputum, Induced/Lukens Respiratory Culture - Final Mixed normal respiratory héctor. No Streptococcus pneumoniae, beta-hemolytic Streptococcus or Staphylococcus aureus isolated. 03/07/21 06:08 Nasal Secretion SARS-CoV-2 Antigen (Rapid) - Final Physical Exam Const no apparent distress General Appearance: intubated and patient mechanically ventilated HEENT normocephalic and head/scalp atraumatic Mouth: endotracheal tube in place and OG tube in place Eyes PERRL Neck supple General: trachea midline Resp Effort and Inspection: tachypneic Auscultation: rhonchi and diminished lung sounds Cardio regular rate and regular rhythm GI normal to inspection, nondistended, normoactive bowel sounds Extremity no clubbing, cyanosis or edema Skin no rashes or lesions noted Neuro Sensorium / Orientation: sedated on vent Charges/Coding Procedures Hospitalists Procedures: [id number] Critial Care 1st Hr
--- NOTE | 2021-03-23 07:28 | PCM.PN.HOSP ---
Subjective Subjective Patient remains on the vent with plans for possible extubation. Did discuss with pulmonary medicine and if patient has to be reintubated again he will undergo PEG and trach at that time. An EEG performed the day prior as a result of encephalopathy demonstrated mild to moderate generalized slowing nonspecific thought to be secondary to medication side effect, toxic or metabolic etiologies. No epileptiform activity noted. Objective Data Objective Data Vital Signs: Vital Signs Temp Pulse Resp BP Pulse Ox 100.2 F H 94 26 H 141/64 H 94 03/23/21 06:00 03/23/21 07:00 03/23/21 07:00 03/23/21 07:00 03/23/21 07:00 Oxygen Flow Rate (L/min) 15 Oxygen Delivery Method Mechanical Ventilator Weight: 59.6 kg Body Mass Index (BMI) 23.6 Intake & Output: Intake and Output for Last 24 Hours 03/21/21 03/22/21 03/23/21 23:59 23:59 23:59 Intake Total 3263.31 / 3296.01 3886.73 / 4086.93 893.21 / 893.21 Output Total 225 / 675 89127 / 11026 875 / 875 Balance 3038.31 / 2621.01 -32699.27 / -46834.07 18.21 / 18.21 Medical Nutrition Assessment Dietitian: Malnutrition Criteria Met Start: 03/20/21 08:54 Freq: Status: Active Protocol: Document 03/22/21 10:53 AG (Rec: 03/22/21 10:53 [id number]) Nutrition Malnutrition Evidence of Malnutrition Exists Yes Malnutrition (severe): Acute Illness/Injury Evidenced By Suboptimal Energy Intake ( Severe),Weight Loss (Severe) Intake Problem Inadequate Oral Intake Etiology r/t dysphagia, altered mental status Signs/Symptoms as evidenced by inability to consume sufficient nutrition via PO diet x5 days Status Active Problem Clinical Problem Acute Disease or Injury Related Malnutrition Etiology severe, acute malnutrition r/t inadequate energy intake d/t mechanical intubation, dysphagia s/p extubation Signs/Symptoms as evidenced by unintentional wt loss of 4.3% since adm, estimated PO Intake meeting < 50% of estimated energy needs >5 days. Status Active Problem Recommendation Dietitian Recommendations/Changes NPO; Vital AF 1.2 via OGT at goal rate of 50mL/hour w/ 150mL H2O flush every 4 hours to provide 1440 calories, 90 g protein, and 1873mL total fluid/day. Would start at 20mL /hour and increase by 10mL every 12 hours as tolerated until goal rate is achieved. Close monitoring of electrolytes given malnutrition, lack of PO intake x 5 days. Will order mag/phos. Lab / Micro Data Result Diagrams: 03/23/21 04:15 03/23/21 04:15 Labs: Laboratory Results - last 24 hr 03/22/21 13:20: APTT 68.8 H 03/23/21 04:15: Sodium 147 H, Potassium 2.7 L*, Chloride 116 H, Carbon Dioxide 26.0, Anion Gap 5, BUN 8, Creatinine 0.81, Estim Creat Clear Calc 75.13, Est GFR (MDRD) Af Amer 123, Est GFR (MDRD) Non-Af 102, BUN/Creatinine Ratio 9.9 L, Glucose 114 H, Calcium 7.5 L, Phosphorus 2.6, Magnesium 1.6 03/23/21 04:15: WBC 6.5, RBC 2.69 L, Hgb 7.9 L, Hct 25.4 L, MCV 94.4 H, MCH 29.4, MCHC 31.1 L, RDW Std Deviation 64.0 H, RDW Coeff of Harjeet 18.6 H, Plt Count 293, MPV 10.7, Immature Gran % (Auto) 0.500, Neut % (Auto) 75.6 H, Lymph % (Auto) 14.1 L, [place] % (Auto) 4.6, Eos % (Auto) 4.9, Baso % (Auto) 0.3, Absolute Neuts (auto) 4.9, Absolute Lymphs (auto) 0.92, Nucleated RBC % 0 03/23/21 04:15: APTT 66.3 H Micro: Microbiology 03/21/21 15:25 Sputum, Induced/Lukens Gram Stain - Final 03/21/21 15:25 Sputum, Induced/Lukens Respiratory Culture - Preliminary GNR lactose lead caster 03/20/21 23:54 Nasal Secretion SARS-CoV-2 Antigen (Rapid) - Final 03/18/21 13:00 Sputum, Induced/Lukens Gram Stain - Final 03/18/21 13:00 Sputum, Induced/Lukens Respiratory Culture - Final Pseudomonas aeroginosa 03/18/21 10:35 Blood Culture (Wb) - Right Hand Blood Culture - Preliminary No growth in 48 hours. 03/18/21 10:00 Blood Culture (Wb) - Central Line Blood Culture - Preliminary No growth in 48 hours. 03/11/21 12:10 Blood Culture (Wb) - Right Forearm Blood Culture - Final No growth in 5 days. 03/11/21 12:15 Blood Culture (Wb) - Left Forearm Blood Culture - Final No growth in 5 days. 03/09/21 07:53 Blood Culture (Wb) - Anticubital Right Blood Culture - Final Coag Negative Staph 03/09/21 07:55 Blood Culture (Wb) - Anticubital Left Blood Culture - Final No growth in 5 days. 03/09/21 07:50 Urine Catheter - Catheter Urine Culture - Final Culture exhibits no growth. 03/07/21 23:00 Sputum, Induced/Lukens Gram Stain - Final 03/07/21 23:00 Sputum, Induced/Lukens Respiratory Culture - Final Mixed normal respiratory héctor. No Streptococcus pneumoniae, beta-hemolytic Streptococcus or Staphylococcus aureus isolated. 03/07/21 06:08 Nasal Secretion SARS-CoV-2 Antigen (Rapid) - Final Physical Exam Narrative GENERAL: Awake on the vent HEENT: Atraumatic; EYES; Anicteric, Normal Conjunctiva NECK; supple, normal thyroid, RESPIRATORY: Diminished to auscultation CARDIOVASCULAR: Regular S1 S2, GI: soft, normoactive bowel sounds, : No Renal angle tenderness; EXTREMITIES: No edema, no clubbing, MUSCULOSKELETAL: no muscle waisting NEURO: Awake on the vent, does not follow commands Assessment & Plan Assessment/Plan (1) Acute respiratory failure: QUALIFIERS: Respiratory failure complication: hypoxia and hypercapnia Qualified Code(s): J96.01 - Acute respiratory failure with hypoxia; J96.02 - Acute respiratory failure with hypercapnia PLAN: Patient is a 61-year-old admitted with acute alcohol withdrawal with desire for detoxification. Patient was apparently found in the emergency department with face down. He was found unresponsive was found to be in V. fib. CODE BLUE was called patient was successfully resuscitated with ACLS with ROSC SC. Intubated and admitted to the intensive care unit 1. Acute hypoxic respiratory failure ?Secondary to above patient was intubated following ROSC admitted to the intensive care unit placed on the vent consult placed to pulmonary/intensive care for vent management ?03/09/2021; patient is awake on the vent however does not follow any purposeful commands 03/10/2021. Patient remains on the vent currently sedated ?03/11/2021; patient remains sedated on the vent -03/12/2021; remains on the vent 03/13/2021; vent with assist control mode FiO2 of 35% -03/13/2021.Patient remains on the vent. Family to decide on the on the patient's CODE STATUS -03/22/2021. Patient was extubated on 03/17/2021 had to be reintubated on 03/21/2021 due to worsening respiratory symptoms -03/23/2021;Patient remains on the vent with plans for possible extubation. Did discuss with pulmonary medicine and if patient has to be reintubated again he will undergo PEG and trach at that time. An EEG performed the day prior as a result of encephalopathy demonstrated mild to moderate generalized slowing nonspecific thought to be secondary to medication side effect, toxic or metabolic etiologies. No epileptiform activity noted. 2. Cardiopulmonary arrest ?Secondary to ventricular fibrillation. Patient was successfully resuscitated using ACLS protocol. Cardiology consulted 3. Fever ?Cultures so far positive for coagulase staph negative.. Repeat blood culture sent in view of patient continued to spike fever. Currently on cefepime and vancomycin. -03/12/2021.Patient remains sedated on the vent. Still continues to spike fevers. Temperature maximum over the past 24 hours 101.5. Repeat blood cultures sent. ?03/13/1821; repeat blood cultures pending ?03/14/2021. Patient continues to spike fevers. Repeat blood cultures so far negative to date 4. Valvular heart disease ?With history of mitral valve prosthesis. Patient is on systemic anticoagulation with Coumadin INR was subtherapeutic started on heparin ?03/11/2021. Heparin has been held the day prior in view of significant drop in his hemoglobin level resumed starting today 5. 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 Paroxysmal A. fib ?Rate controlled 7. Chronic alcohol dependence ?Plan was for patient to have undergone detoxification however he coded prior to initiation of the program 8. Chronic heart failure with reduced ejection fraction ?Echo obtained on 08/11/2020 demonstrated EF of 60% -Echo repeated during this hospital stay demonstrated EF of 35% consistent with heart failure with reduced ejection fraction 9. Anemia - Secondary to chronic disorder monitoring H&H and transfuse if patient becomes symptomatic or hemoglobin falls below 7 ?03/10/2021; hemoglobin down to 7.2 -03/11/2021; patient was transfused with 2 unit PRBC on 03/10/2021 -03/14/2021; hemoglobin down to 7.9 10. Acute transaminitis ?Secondary to shock liver from patient cardiopulmonary arrest monitoring with daily LFTs 11. Essential hypertension ?Per history 12. Tobacco dependence 13. DVT prophylaxis ?On systemic anticoagulation with heparin 14. Hypokalemia -Corrected per protocol, repeat labs ordered for monitoring Charges/Coding Visit Charges Inpatient E&M: 80703 Subs Hosp L3
[2021-03-23] MEDS: Potassium Chloride 20mEq/100mL 20 MEQ/100 ML IV.SOLN. 50 MEQ IV BOLUS ×2 (08:48→11:24)
[2021-03-23] MEDS: Potassium Chloride Oral Soln 20 MEQ/15 ML UDC 40 MEQ PO (08:48)
[2021-03-23] MEDS: Chlorhexidine 15 ML PO ×2 (08:49→21:19)
[2021-03-23] MEDS: CHLORHEXIDINE GLUC 2% CLOTH 1 EACH TOWELETTE TOPICAL (08:49)
[2021-03-23] MEDS: QUEtiapine 100 MG Tablet 150 MG GT ×2 (09:24→21:23)
[2021-03-23] MEDS: Carvedilol 12.5 MG Tablet PO ×2 (09:25→21:24)
--- NOTE | 2021-03-23 09:27 | CASEMGMT ---
Social Work Participating in ICU rounds. Per previous social work note [facility] was consulted. Nursing reporting to have received phone call from [facility] inquiring about plan. Telephone call to [facility], Yeimi. Yeimi reports to have left voicemail for patient daughter, Viviana and to be waiting return phone call. Yeimi to contact Viviana again around 11am to attempt to confirm time to meet with hospice today. Nursing updated. Social Work to continue to follow. Mariama JARA, PATRIC
[2021-03-23] MEDS: levoFLOXacin IV 750 MG/150 ML BAG 100 MG IV (11:31)
--- NOTE | 2021-03-23 11:35 | CASEMGMT ---
Social Work Telephone call from [facility], Yeimi. Hospice to meet with patient and family at 1:00pm today. Team updated. Mariama Corley MSW, PATRIC
--- NOTE | 2021-03-23 14:30 | CASEMGMT ---
Social Work Hospice and patient family meeting to discuss options. Will continue to follow for support. Mariama JARA, PATRIC
--- NOTE | 2021-03-23 14:45 | CASEMGMT ---
Social Work The below serious of events occurred from 14:45-16:00 This social media designer notified by nursing that patient daughter, Arianna is laying on patient and request social work support to assist with ensuring patient safety. This social media designer and nursing staff entered patient room. Arianna present as well as patient lady friend, Catherine. Arianna tearful and attempting to communicate with patient. Per nursing staff patient is confused and has not been able to be oriented or to follow directions. This social media designer and nurse able to assist Arianna with getting a chair beside patient bed. This social media designer then assisting with transitioning patient daughters (Viviana and Arianna) along with step-daughter, Arianna and girlfriend, Catherine to patient waiting room to discuss hospice options further with tunnel drier operator, Jordan. Arianna becoming visibly frustrated and refused to go into patient waiting room as per Arianna they just want the easy way out. Arianna and Viviana then yelling at each other as Arianna was leaving. Viviana attempting for Arianna to stay and Arianna no longer wanting to stay and not wanting to speak with hospice. Arianna left unit with Catherine. Viviana tearful and visibly upset about accusations that Arianna made. This social media designer and airline pilot flight instructorSarath offering support. Viviana and Suellen then meeting with Jordan. This social media designer to continue to follow. Mariama JARA, PATRIC
--- NOTE | 2021-03-23 16:09 | CHAPLAIN ---
Type of Pastoral Visit ___ Initial Visit _x__ Follow-up Visit ___ On-call Visit ___ General Patient Visit ___ Spiritual Assessment _x__ Family Conference ___ Bereavement ___ Rapid Response ___ Code Blue ___ Other (describe below) Pastoral Care Referral From ___ Patient ___ Family ___ Nurse ___ Physician ___ Sleep Technician ___ Robotics Application Engineer _x__ Other (describe below) Sacrament/Intervention _x__ Active listening ___ Anointing ___ Tenriism ___ Bereavement ___ Communion _x__ Pascale exploration ___ _x__ Life review _x__ Prayer ___ Reconciliation ___ Sacrament of Sick _x__ Supportive presence ___ Wedding _x__ Other (describe below) Pastoral Comments heard an argument taking place among daughters of patient in waiting area; went of offer intervention for safety; one daughter immediately left the building; two other daughters returned to waiting area where [facility] was waiting; a second daughter was quite upset and did much talking; lots of listening and affirming of feelings given to daughters that were present; SW was also involved and giving support; gave presence and prayer during this follow up discussion; also went into patient's room and spoke with pt who is minimally responsive; prayed with patient too
--- NOTE | 2021-03-23 16:35 | CASEMGMT ---
Social Work Commercial Mortgage Broker, Jordan coming to meet with this social work supervisor and informed this social work supervisor that unsure what family will decide. Viviana and Suellen now speaking with other family in patient waiting room. Will continue to follow. Mariama JARA, PATRIC
--- NOTE | 2021-03-23 17:50 | CASEMGMT ---
Social Work Patient daughter, Viviana and step-daughter, Suellen asking to speak with this social research assistant. Viviana reports to have decided to have decided to have patient terminally extubated and plans to sign hospice paperwork. Viviana and Suellen meeting with hospice, Jordan to sign paperwork. Viviana deciding for patient to be extubated tomorrow and then if patient is able to tolerate the transfer plan will be to transition to inpatient hospice unit. Social Work to continue to follow. Mariama JARA, PATRIC
--- NOTE | 2021-03-23 18:48 | CASEMGMT ---
Social Work Family stopping this social media content manager in the [place]tega, plan is for extubation tomorrow morning at 11:00am. Nursing and hospice updated. Nursing to update Dr. Roberts. Will continue to follow. Mariama JARA, PATRIC
[2021-03-23] MEDS: Dexmedetomidine 1,000 mcg in 0.9% NS 240 mL 22.5 MCG CONT INF (19:28)
[2021-03-23] MEDS: Vital AF 1.2 Cal Liquid 1,000 ML 50 ML GT (21:26)
[2021-03-24] VITALS (20 sets, daily range): BP systolic 92–161; BP diastolic 53–115; PULSE 62–105; RESP 18–35; TEMP 37.1–37.3; O2SAT 76–98
[2021-03-24] MEDS: Acetylcysteine 800 MG/4 ML VIAL.NEB. INHALATION (01:10)
[2021-03-24] MEDS: Albuterol 2.5 MG/3 ML VIAL.NEB. INHALATION (01:10)
[2021-03-24] MEDS: Propofol 10MG/Ml 1,000 MG/100 ML Bottle 7 MG CONT INF (01:52)
[2021-03-24 04:22] LABS: Basophil# 0.02 X10^3/uL; Basophil% 0.4 % (0-1); Eosinophil# 0.32 X10^3/uL; Eosinophils% 6.7 % (0-5); Hematocrit 25.5 % (40-54); Mean Corp Hgb Conc 31.4 g/dL (32-36); Mean Corpuscular Hgb 29.6 pg (27.0-32.0); Mean Corpuscular Volume 94.4 fL (80-94); Monocyte# 0.38 X10^3/uL; NRBC Flagged by Analyzer 0 % (0-5); Neutrophil # 3.02 X10^3/uL (2.7-7.7); Neutrophil % 63.3 % (47-70); Platelet Count 259 K/mm3 (150-450); RBC Distribution Width CV 18.7 % (11.6-14.6); RBC Distribution Width SD 63.7 fl (35.1-43.9); White Blood Count 4.8 K/mm3 (4.4-11.0)
[2021-03-24 04:45] LABS: Anion Gap 4 (5-15); BUN 6 mg/dL (7-18); BUN/Creat Ratio 8.1 RATIO (10-20); Calcium,Total 7.5 mg/dL (8.5-10.1); Chloride 114 mmol/L (98-107); Creatinine, Serum 0.74 mg/dL (0.70-1.30); EST Glomerular Filtration Rate 113 mL/min (>60); Est Glom Filt Rate - Afr Amer 137 mL/min (>60); Estimated Creatinine Clearance 82.23 ml/min; Glucose 159 mg/dL (74-106); Magnesium 1.7 mg/dL (1.6-2.6); Partial Thromboplast Time 194.1 Seconds (24.1-36.2); Phosphorus 2.8 mg/dL (2.5-4.9); Sodium Level 144 mmol/L (136-145)
[2021-03-24] MEDS: Dexmedetomidine 1,000 mcg in 0.9% NS 240 mL 22.5 MCG CONT INF (05:53)
[2021-03-24 06:19] LABS: Partial Thromboplast Time 72.8 Seconds (24.1-36.2)
--- NOTE | 2021-03-24 07:25 | PN.CC_ITS ---
Assessment & Plan Assessment/Plan (1) Acute respiratory failure: QUALIFIERS: Respiratory failure complication: hypoxia and hypercapnia Qualified Code(s): J96.01 - Acute respiratory failure with hypoxia; J96.02 - Acute respiratory failure with hypercapnia PLAN: RECOMMENDATIONS: 1. Continue patient on pressure control as tolerated. 2. Continue current sedation regimen. 3. Continue to monitor H&H daily. Transfuse for hemoglobin less than 7 g/dL. 4. Continue tube feeds as tolerated and replete electrolytes. 5. Continue heparin infusion as tolerated. 6. Continue PPI therapy twice daily. 7. Okay to discontinue D5W. 8. Tentative plans for initiation of hospice care services later this morning. IMPRESSIONS: 1. Acute hypoxemic and hypercarbic respiratory failure status post V. fib cardiac arrest The patient was initially admitted for acute alcohol detoxification and was found unresponsive in V. fib arrest. The patient did receive ACLS with eventual return of spontaneous circulation. He was intubated as a consequence of the aforementioned. Although the patient was able to be extubated on March 17, he did require reintubation on March 21. Plan to continue to wean FiO2 and PEEP for saturations greater than 90%. Okay to continue tube feeds as tolerated. The patient continues to have significant secretions and remains on antimicrobials due to Pseudomonas isolated from sputum culture. Following a family discussion, there are tentative plans for initiation of hospice care services and palliative withdrawal of life support at some point later today. 2. Acute kidney injury Resolved. Likely prerenal in etiology/ischemic ATN in the setting of cardiac arrest. Anticipate improvement with stabilization of hemodynamics. Continue to monitor urine output for now. Avoid nephrotoxic medications. No current indication for renal replacement therapy. 3. Acute liver injury Resolved. Likely secondary to cardiac arrest and hemodynamic instability leading to hypoperfusion. Anticipate improvement with stabilization of hemodynamics. 4. Hypernatremia/hypokalemia Improved. Okay to discontinue D5W. 5. Acute alcohol withdrawal Resolved. Continue current sedation regimen including Precedex until patient can tolerate Seroquel dosing. 6. Anemia Okay to continue heparin at this time as there does not appear to be any clinical bleeding. Continue PPI therapy twice daily. Transfuse if hemoglobin drops below 7 g/dL. 7. History of prosthetic mitral valve/hypertension/hyperlipidemia Complicates care, management, recovery and prognosis. Continue home medications as indicated. Will need to clarify goals of care with the patient's family. TIME: 31 minutes of critical care time, independent of procedures, was spent addre ssing the patient's acute hypoxemic and hypercarbic respiratory failure, acute kidney injury, hypernatremia, anemia, review of all data and collaboration with the care team. Subjective Subjective The patient was seen and examined at the bedside this morning. Events from the last 24 hours have been reviewed. The patient is currently afebrile, hemodynamically stable and maintaining appropriate oxygen saturations on press ure support mode of mechanical ventilation with an FiO2 requirement of 30%. Following a family meeting with hospice care services yesterday afternoon, the patient's family has elected to proceed with withdrawal from invasive mechanical ventilatory support later this morning. Potassium is low this morning at 3.0. Objective Data Objective Data The patient's most recent lab work, culture data and imaging studies have all been personally reviewed. Surface echocardiogram demonstrated normal LV size with moderate global LV systolic dysfunction and ejection fraction of 35%. Rapid coronavirus antigen testing was negative. Sputum culture dated March 18 was positive for Pseudomonas aeruginosa and E. coli. Vital Signs: Vital Signs Temp Pulse Resp BP Pulse Ox 98.7 F 71 21 H 102/62 95 03/24/21 04:00 03/24/21 07:00 03/24/21 07:00 03/24/21 07:00 03/24/21 07:00 Oxygen Flow Rate (L/min) 15 Oxygen Delivery Method Mechanical Ventilator Weight: 61.9 kg Body Mass Index (BMI) 23.6 Intake & Output: Intake and Output for Last 24 Hours 03/22/21 03/23/21 03/24/21 23:59 23:59 23:59 Intake Total 3886.73 / 4086.93 5043.94 / 5233.44 706.25 / 706.25 Output Total 23868 / 86329 2475 / 3225 1750 / 1750 Balance -52343.27 / -36825.07 2568.94 / 2007.44 -1043.75 / -1043.75 Medical Nutrition Assessment Dietitian: Malnutrition Criteria Met Start: 03/20/21 08:54 Freq: Status: Active Protocol: Document 03/22/21 10:53 AG (Rec: 03/22/21 10:53 AG [id number]) Nutrition Malnutrition Evidence of Malnutrition Exists Yes Malnutrition (severe): Acute Illness/Injury Evidenced By Suboptimal Energy Intake ( Severe),Weight Loss (Severe) Intake Problem Inadequate Oral Intake Etiology r/t dysphagia, altered mental status Signs/Symptoms as evidenced by inability to consume sufficient nutrition via PO diet x5 days Status Active Problem Clinical Problem Acute Disease or Injury Related Malnutrition Etiology severe, acute malnutrition r/t inadequate energy intake d/t mechanical intubation, dysphagia s/p extubation Signs/Symptoms as evidenced by unintentional wt loss of 4.3% since adm, estimated PO Intake meeting < 50% of estimated energy needs >5 days. Status Active Problem Recommendation Dietitian Recommendations/Changes NPO; Vital AF 1.2 via OGT at goal rate of 50mL/hour w/ 150mL H2O flush every 4 hours to provide 1440 calories, 90 g protein, and 1873mL total fluid/day. Would start at 20mL /hour and increase by 10mL every 12 hours as tolerated until goal rate is achieved. Close monitoring of electrolytes given malnutrition, lack of PO intake x 5 days. Will order mag/phos. Lab / Micro Data Attestation: I reviewed the patient's lab results. Result Diagrams: 03/24/21 04:15 03/24/21 04:15 Labs: Laboratory Results - last 24 hr 03/24/21 04:15: Sodium 144, Potassium 3.0 L, Chloride 114 H, Carbon Dioxide 26.0, Anion Gap 4 L, BUN 6 L, Creatinine 0.74, Estim Creat Clear Calc 82.23, Est GFR (MDRD) Af Amer 137, Est GFR (MDRD) Non-Af 113, BUN/Creatinine Ratio 8.1 L, Glucose 159 H, Calcium 7.5 L, Phosphorus 2.8, Magnesium 1.7 03/24/21 04:15: WBC 4.8, RBC 2.70 L, Hgb 8.0 L, Hct 25.5 L, MCV 94.4 H, MCH 29.6, MCHC 31.4 L, RDW Std Deviation 63.7 H, RDW Coeff of Harjeet 18.7 H, Plt Count 259, MPV 11.0, Immature Gran % (Auto) 0.600, Neut % (Auto) 63.3, Lymph % (Auto) 21.0, [place] % (Auto) 8.0, Eos % (Auto) 6.7 H, Baso % (Auto) 0.4, Absolute Neuts (auto) 3.0, Absolute Lymphs (auto) 1.00, Nucleated RBC % 0 03/24/21 04:15: APTT 194.1 H* 03/24/21 05:50: APTT 72.8 H Micro: Microbiology 03/18/21 10:35 Blood Culture (Wb) - Right Hand Blood Culture - Final No growth in 5 days. 03/18/21 10:00 Blood Culture (Wb) - Central Line Blood Culture - Final No growth in 5 days. 03/21/21 15:25 Sputum, Induced/Lukens Gram Stain - Final 03/21/21 15:25 Sputum, Induced/Lukens Respiratory Culture - Final Escherichia coli 03/20/21 23:54 Nasal Secretion SARS-CoV-2 Antigen (Rapid) - Final 03/18/21 13:00 Sputum, Induced/Lukens Gram Stain - Final 03/18/21 13:00 Sputum, Induced/Lukens Respiratory Culture - Final Pseudomonas aeroginosa 03/11/21 12:10 Blood Culture (Wb) - Right Forearm Blood Culture - Final No growth in 5 days. 03/11/21 12:15 Blood Culture (Wb) - Left Forearm Blood Culture - Final No growth in 5 days. 03/09/21 07:53 Blood Culture (Wb) - Anticubital Right Blood Culture - Final Coag Negative Staph 03/09/21 07:55 Blood Culture (Wb) - Anticubital Left Blood Culture - Final No growth in 5 days. 03/09/21 07:50 Urine Catheter - Catheter Urine Culture - Final Culture exhibits no growth. 03/07/21 23:00 Sputum, Induced/Lukens Gram Stain - Final 03/07/21 23:00 Sputum, Induced/Lukens Respiratory Culture - Final Mixed normal respiratory héctor. No Streptococcus pneumoniae, beta-hemolytic Streptococcus or Staphylococcus aureus isolated. 03/07/21 06:08 Nasal Secretion SARS-CoV-2 Antigen (Rapid) - Final Physical Exam Const no apparent distress General Appearance: intubated and patient mechanically ventilated HEENT normocephalic and head/scalp atraumatic Mouth: endotracheal tube in place and OG tube in place Eyes PERRL Neck supple General: trachea midline Resp Auscultation: rhonchi and diminished lung sounds; Negative for rales or wheezes Cardio regular rate and regular rhythm GI normal to inspection, nondistended, normoactive bowel sounds Extremity no clubbing, cyanosis or edema Skin no rashes or lesions noted Neuro Sensorium / Orientation: sedated on vent Charges/Coding Procedures Hospitalists Procedures: [id number] Critial Care 1st Hr
--- NOTE | 2021-03-24 07:40 | PCM.PN.HOSP ---
Subjective Subjective Patient intubated on on pressure control mode of ventilator.. Status post cardiac arrest. Discussed with nursing staff and plan for possible initiation of hospice care Objective Data Objective Data Vital Signs: Vital Signs Temp Pulse Resp BP Pulse Ox 98.7 F 68 21 H 102/62 95 03/24/21 04:00 03/24/21 07:26 03/24/21 07:26 03/24/21 07:00 03/24/21 07:26 Oxygen Flow Rate (L/min) 15 Oxygen Delivery Method Mechanical Ventilator Weight: 136 lb 7.458 oz Body Mass Index (BMI) 23.6 Intake & Output: Intake and Output for Last 24 Hours 03/22/21 03/23/21 03/24/21 23:59 23:59 23:59 Intake Total 3886.73 / 4086.93 5043.94 / 5233.44 706.25 / 706.25 Output Total 75992 / 54675 2475 / 3225 1750 / 1750 Balance -41880.27 / -62553.07 2568.94 / 2007.44 -1043.75 / -1043.75 Medical Nutrition Assessment Dietitian: Malnutrition Criteria Met Start: 03/20/21 08:54 Freq: Status: Active Protocol: Document 03/22/21 10:53 AG (Rec: 03/22/21 10:53 AG [id number]) Nutrition Malnutrition Evidence of Malnutrition Exists Yes Malnutrition (severe): Acute Illness/Injury Evidenced By Suboptimal Energy Intake ( Severe),Weight Loss (Severe) Intake Problem Inadequate Oral Intake Etiology r/t dysphagia, altered mental status Signs/Symptoms as evidenced by inability to consume sufficient nutrition via PO diet x5 days Status Active Problem Clinical Problem Acute Disease or Injury Related Malnutrition Etiology severe, acute malnutrition r/t inadequate energy intake d/t mechanical intubation, dysphagia s/p extubation Signs/Symptoms as evidenced by unintentional wt loss of 4.3% since adm, estimated PO Intake meeting < 50% of estimated energy needs >5 days. Status Active Problem Recommendation Dietitian Recommendations/Changes NPO; Vital AF 1.2 via OGT at goal rate of 50mL/hour w/ 150mL H2O flush every 4 hours to provide 1440 calories, 90 g protein, and 1873mL total fluid/day. Would start at 20mL /hour and increase by 10mL every 12 hours as tolerated until goal rate is achieved. Close monitoring of electrolytes given malnutrition, lack of PO intake x 5 days. Will order mag/phos. Lab / Micro Data Result Diagrams: 03/24/21 04:15 03/24/21 04:15 Labs: Laboratory Results - last 24 hr 03/24/21 04:15: Sodium 144, Potassium 3.0 L, Chloride 114 H, Carbon Dioxide 26.0, Anion Gap 4 L, BUN 6 L, Creatinine 0.74, Estim Creat Clear Calc 82.23, Est GFR (MDRD) Af Amer 137, Est GFR (MDRD) Non-Af 113, BUN/Creatinine Ratio 8.1 L, Glucose 159 H, Calcium 7.5 L, Phosphorus 2.8, Magnesium 1.7 03/24/21 04:15: WBC 4.8, RBC 2.70 L, Hgb 8.0 L, Hct 25.5 L, MCV 94.4 H, MCH 29.6, MCHC 31.4 L, RDW Std Deviation 63.7 H, RDW Coeff of Harjeet 18.7 H, Plt Count 259, MPV 11.0, Immature Gran % (Auto) 0.600, Neut % (Auto) 63.3, Lymph % (Auto) 21.0, [place]son % (Auto) 8.0, Eos % (Auto) 6.7 H, Baso % (Auto) 0.4, Absolute Neuts (auto) 3.0, Absolute Lymphs (auto) 1.00, Nucleated RBC % 0 03/24/21 04:15: APTT 194.1 H* 03/24/21 05:50: APTT 72.8 H Micro: Microbiology 03/18/21 10:35 Blood Culture (Wb) - Right Hand Blood Culture - Final No growth in 5 days. 03/18/21 10:00 Blood Culture (Wb) - Central Line Blood Culture - Final No growth in 5 days. 03/21/21 15:25 Sputum, Induced/Lukens Gram Stain - Final 03/21/21 15:25 Sputum, Induced/Lukens Respiratory Culture - Final Escherichia coli 03/20/21 23:54 Nasal Secretion SARS-CoV-2 Antigen (Rapid) - Final 03/18/21 13:00 Sputum, Induced/Lukens Gram Stain - Final 03/18/21 13:00 Sputum, Induced/Lukens Respiratory Culture - Final Pseudomonas aeroginosa 03/11/21 12:10 Blood Culture (Wb) - Right Forearm Blood Culture - Final No growth in 5 days. 03/11/21 12:15 Blood Culture (Wb) - Left Forearm Blood Culture - Final No growth in 5 days. 03/09/21 07:53 Blood Culture (Wb) - Anticubital Right Blood Culture - Final Coag Negative Staph 03/09/21 07:55 Blood Culture (Wb) - Anticubital Left Blood Culture - Final No growth in 5 days. 03/09/21 07:50 Urine Catheter - Catheter Urine Culture - Final Culture exhibits no growth. 03/07/21 23:00 Sputum, Induced/Lukens Gram Stain - Final 03/07/21 23:00 Sputum, Induced/Lukens Respiratory Culture - Final Mixed normal respiratory héctor. No Streptococcus pneumoniae, beta-hemolytic Streptococcus or Staphylococcus aureus isolated. 03/07/21 06:08 Nasal Secretion SARS-CoV-2 Antigen (Rapid) - Final Physical Exam Narrative General: Intubated. On fentanyl IV HEENT: Atraumatic, normocephalic Oral: ET and OG tube Neck: Supple, No JVD, Negative Carotid Bruits Lungs: Air entry diminished in bilateral lung bases. On ventsupport Cardiovascular: Sinus rhythm, Normal S1, Normal S2, No murmurs Abdomen: Bowel Sounds Present, Soft, Non Tender, Non-Distended : No renal angle tenderness. No suprapubic tenderness. Extremities: No edema, Capillary Refill Less than 3 Seconds Skin: No rashes, No breakdown Musculoskeletal: No Tenderness to Palpation of Joints or Extremities Neurological: Intubated. No focal finding. Psych/Mental Status: Intubated Assessment & Plan Assessment/Plan (1) Acute respiratory failure: QUALIFIERS: Respiratory failure complication: hypoxia and hypercapnia Qualified Code(s): J96.01 - Acute respiratory failure with hypoxia; J96.02 - Acute respiratory failure with hypercapnia PLAN: Patient is a 61-year-old admitted with acute alcohol withdrawal with desire for detoxification. Patient was apparently found in the emergency department with face down. He was found unresponsive was found to be in V. fib. CODE BLUE was called patient was successfully resuscitated with ACLS with ROSC SC. Intubated and admitted to the intensive care unit 1. Acute hypoxic respiratory failure ?Secondary to above patient was intubated following ROSC admitted to the intensive care unit placed on the vent consult placed to pulmonary/intensive care for vent management 03/24: Patient remains intubated currently on pressor support. Patient was extubated on 03/17 and had to be reintubated on 03/21 for worsening respiratory symptoms. The patient had EEG because of encephalopathy reported mild to moderate generalized slowing nonspecific thought to be secondary to medication side effect, toxic or metabolic etiologies. No epileptiform activity noted. 2. Cardiopulmonary arrest ?Secondary to ventricular fibrillation. Patient was successfully resuscitated using ACLS protocol. Cardiology consulted 3. Possible bacterial pneumonia: Sputum culture grew Pseudomonas aeruginosa and E. coli. 1+ patient on cefepime and vancomycin. Last fever T-max 100.2 Fahrenheit on 03/23 at 5 AM. Blood culture had coagulase negative staph. On Levaquin 4. Valvular heart disease ?With history of mitral valve prosthesis. Patient is on systemic anticoagulation with Coumadin INR was subtherapeutic started on heparin 03/24: Heparin discontinued some decided for hospice care 5. 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 Paroxysmal A. fib ?Rate controlled 7. Chronic alcohol dependence ?Plan was for patient to have undergone detoxification however he coded prior to initiation of the program 8. Chronic heart failure with reduced ejection fraction ?Echo obtained on 08/11/2020 demonstrated EF of 60% -Echo repeated during this hospital stay demonstrated EF of 35% consistent with heart failure with reduced ejection fraction 9. Anemia - Secondary to chronic disorder monitoring H&H and transfuse if patient becomes symptomatic or hemoglobin falls below 7 Patient was transfused 2 units of PRBC on 03/10 because of severe anemia 7.2. Currently 8 g. 10. Acute liver injury secondary to shock liver ?Secondary to shock liver from patient cardiopulmonary arrest monitoring 11. Essential hypertension BP 130/80 12. Tobacco dependence 13. DVT prophylaxis ?On systemic anticoagulation with heparin 14. Hypokalemia Potassium getting corrected as per protocol Active Medications Acetaminophen (Acetaminophen 650 Mg Suppository) 650 mg RC Q6H PRN PRN PRN Reason: ELEVATED TEMP Last Admin: 03/23/21 05:32 Dose: 650 mg Documented by: Acetylcysteine (Acetylcysteine 800 Mg/4 Ml Vial.Neb.) 800 mg INHALATION Q6H.RT CRUZ Last Admin: 03/24/21 01:10 Dose: 800 mg Documented by: Albuterol Sulfate (Albuterol 2.5 Mg/3 Ml Vial.Neb.) 2.5 mg INHALATION Q2H PRN PRN PRN Reason: sob/wheezing Last Admin: 03/24/21 01:10 Dose: 2.5 mg Documented by: Chlorhexidine Gluconate (Chlorhexidine Gluc 2% Cloth 1 Each Towelette) 1 each TOPICAL DAILY [facility] Last Admin: 03/24/21 13:03 Dose: Not Given Documented by: Chlorhexidine Gluconate (Chlorhexidine 15 Ml) 15 ml PO BID [facility] Last Admin: 03/24/21 13:03 Dose: Not Given Documented by: Fentanyl Citrate (Fentanyl 100 Mcg/2 Ml Ampul) 50 mcg IV Q2H PRN PRN PRN Reason: AGITATION Last Admin: 03/20/21 20:17 Dose: 50 mcg Documented by: Heparin Sodium (Porcine) (Heparin Injection (Vial) 5,000 Unit/Ml Vial) 0 unit IV UD PRN; Protocol PRN Reason: dose adjustment Last Admin: 03/20/21 11:59 Dose: 1,000 unit Documented by: Levofloxacin (Levaquin Iv) 750 mg in 150 mls @ 100 mls/hr IV Q24 [facility] Stop: 03/27/21 10:01 Last Admin: 03/24/21 13:04 Dose: Not Given Documented by: Enteral Nutritional Formula (Vital Af 1.2 Christiano Liquid) 1,000 mls @ 50 mls/hr GT .Q20H [facility] Last Admin: 03/24/21 03:05 Dose: Not Given Documented by: Dextrose () 1,000 mls @ 100 mls/hr IV .Q10H [facility] Last Infusion: 03/24/21 12:55 Dose: Infused Documented by: Lorazepam (Lorazepam 2 Mg/Ml Syringe) 1 - 2 mg IV Q30M PRN PRN Reason: ANXIETY Last Admin: 03/24/21 13:00 Dose: 2 mg Documented by: Morphine Sulfate (Morphine 2 Mg/Ml Syringe) 2 - 4 mg IV Q15M PRN PRN Reason: Pain Score 1-10 Last Admin: 03/24/21 13:00 Dose: 4 mg Documented by: Quetiapine Fumarate (Quetiapine 100 Mg Tablet) 150 mg GT BID [facility] Last Admin: 03/24/21 13:04 Dose: Not Given Documented by: Senna/Docusate Sodium (Senna/Docusate Sodium 1 Tablet) 2 tablet PO DAILY CRUZ Last Admin: 03/24/21 13:04 Dose: Not Given Documented by: Sodium Chloride (0.9% Normal Saline 250 Ml Iv.Soln.) 250 ml IV UD PRN PRN Reason: KVO Last Admin: 03/21/21 22:04 Dose: 250 ml Documented by: Sodium Chloride (0.9% Saline Lock 10 Ml Syringe) 10 - 30 ml IV PRN PRN PRN Reason: flush Last Admin: 03/21/21 06:10 Dose: 20 ml Documented by: Charges/Coding Visit Charges Inpatient E&M: 84658 Subs Hosp L3
[2021-03-24] MEDS: LORazepam 2 MG/ML Syringe IV (13:00)
[2021-03-24] MEDS: Morphine 2 MG/ML Syringe IV (13:00)
--- NOTE | 2021-03-24 13:24 | CHAPLAIN ---
Type of Pastoral Visit ___ Initial Visit ___ Follow-up Visit ___ On-call Visit ___ General Patient Visit ___ Spiritual Assessment _x__ Family Conference ___ Bereavement ___ Rapid Response ___ Code Blue ___ Other (describe below) Pastoral Care Referral From ___ Patient _x__ Family xNurse ___ Physician ___ Software Licensing Analyst ___ Aircraft Armorer ___ Other (describe below) Sacrament/Intervention _x__ Active listening ___ Anointing ___ Adventism _x__ Bereavement ___ Communion ___ Pascale exploration ___ _x__ Life review _x__ Prayer ___ Reconciliation ___ Sacrament of Sick _x__ Supportive presence ___ Wedding ___ Other (describe below) Pastoral Comments was present with multiple family members before extubation, during procedure and after wards; offered prayers and presence throughout this time; assisted in gathering family at times; listened to stories and life review from family
--- NOTE | 2021-03-24 13:24 | CASEMGMT ---
ROSY spoke with RN and patient was extubated at 1300. ROSY called Hospice and spoke with Carey. SW let Carey know that patient was extubated at 1300. Carey said if patient is stable for transfer at 1400 to let them know and they will get their unit over to pick him up. Catherine [place]a SOLID WASTE ANALYST ALEXANDREA
--- NOTE | 2021-03-24 13:57 | NURSING ---
[facility] notified that patient was impending post extubation. Rep requested I call back with pt info after cardiac .
--- NOTE | 2021-03-24 14:00 | CASEMGMT ---
SW spoke with RN regarding patient. Per RN patient is stable for transport to Hospice. SW called Hospice and spoke with Keyon letting him know patient is stable for transfer. Keyon said he will notify their mobile unit and they should be on their way. The number for nurse to call report is [phone]. ROSY spoke with RN and let her know above information. Plan: d/c to [facility] inpatient facility. Hospice transported patient. Catherine LECHUGA
--- NOTE | 2021-03-24 14:09 | NURSING ---
report called to hospice. No further questions at this time
--- NOTE | 2021-03-24 14:33 | PCM.DC.SUM ---
Providers Date of Admission: 03/07/21 Primary Care Physician: Dr. Josue Cifuentes MD Consultations 03/07/21 21:48 Consult: Cardiology Routine Consulting Provider: Bertha Murillo Reason for Consult: stemi EMERGENT Consult: Yes MD Notified: Yes Date Notified: 03/07/21 Time Notified: 21:24 Method of Notification: Verbal Comments:: By ED DOCTOR Consult: Community Nurse / Pulmonary Medicine Routine Consulting Provider: Pulmonary Medicine lexie [place] Reason for Consult: cardiac arrest EMERGENT Consult: No MD Notified: Yes Date Notified: 03/07/21 Time Notified: 21:23 Method of Notification: Text 03/22/21 20:35 Consult: Hospice / Palliative Care Routine Consulting Provider: [facility] Reason for Consult: Hospice EMERGENT Consult: No Notified: Yes Date Notified: 03/23/21 Time Notified: 08:46 Method of Notification: Verbal Method of Consult:: In-Person Reason For Visit: ALCOHOL DEPENDENCE AND DESIRE FOR DETOXIFICATION Diagnosis Discharge Diagnosis (1) Acute respiratory failure: Status: Acute Code(s): J96.00 - Acute respiratory failure, unspecified whether with hypoxia or hypercapnia Qualifiers: Respiratory failure complication: hypoxia and hypercapnia Qualified Code(s): J96.01 - Acute respiratory failure with hypoxia; J96.02 - Acute respiratory failure with hypercapnia Medications at Discharge Home Medications carvedilol 3.125 mg PO BID 08/18/17 ferrous sulfate 325 mg PO DAILY 08/18/17 finasteride 5 mg PO DAILY 08/18/17 oxybutynin chloride 5 mg tablet 5 mg PO TID tab 11/29/18 acamprosate 333 mg tablet,delayed release 2 tab PO TID tab 12/06/19 ascorbic acid (vitamin C) 1,000 mg PO BID 01/12/20 docusate sodium 100 mg PO BID 05/13/20 lisinopril 10 mg PO DAILY 05/13/20 omeprazole 40 mg PO DAILY 05/13/20 trazodone 300 mg PO QHS 05/13/20 pregabalin 100 mg PO BID 09/04/20 hydroxyzine HCl 25 mg PO TID PRN 11/10/20 acetaminophen [Tylenol] 650 mg PO Q6H PRN PRN #0 tab 11/12/20 multivitamin 1 tab PO DAILY #1 tab 11/12/20 furosemide 60 mg PO DAILY 02/01/21 paroxetine HCl 50 mg PO DAILY 02/01/21 ropinirole 0.5 mg PO QHS 02/01/21 tiotropium bromide [Spiriva with HandiHaler] 1 cap INHALATION BID 02/01/21 atorvastatin 20 mg PO DAILY 03/07/21 donepezil 10 mg PO DAILY 03/07/21 enoxaparin 60 mg SUBCUT DAILY 03/07/21 folic acid 1 mg PO DAILY 03/07/21 Hospital Course Summary of Care Provided Hospital Course: Patient is a 61-year-old admitted with acute alcohol withdrawal with desire for detoxification. Patient was apparently found in the emergency department with face down. He was found unresponsive was found to be in V. fib. CODE BLUE was called patient was successfully resuscitated with ACLS with ROSC SC. Intubated and admitted to the intensive care unit 1. Acute hypoxic respiratory failure ?Secondary to above patient was intubated following ROSC admitted to the intensive care unit placed on the vent consult placed to pulmonary/intensive care for vent management 03/24: Patient remains intubated currently on pressor support. Patient was extubated on 03/17 and had to be reintubated on 03/21 for worsening respiratory symptoms. The patient had EEG on 03/22 because of encephalopathy reported mild to moderate generalized slowing nonspecific thought to be secondary to medication side effect, toxic or metabolic etiologies. No epileptiform activity noted. 2. Cardiopulmonary arrest ?Secondary to ventricular fibrillation. Patient was successfully resuscitated using ACLS protocol. Cardiology consulted 3. Possible bacterial pneumonia: Sputum culture grew Pseudomonas aeruginosa and E. coli. 1+ patient on cefepime and vancomycin. Last fever T-max 100.2 Fahrenheit on 03/23 at 5 AM. Blood culture had coagulase negative staph. On Levaquin 4. Valvular heart disease ?With history of mitral valve prosthesis. Patient is on systemic anticoagulation with Coumadin INR was subtherapeutic started on heparin 03/24: Heparin discontinued some decided for hospice care 5. 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 Paroxysmal A. fib ?Rate controlled 7. Chronic alcohol dependence ?Plan was for patient to have undergone detoxification however he coded prior to initiation of the program 8. Chronic heart failure with reduced ejection fraction ?Echo obtained on 08/11/2020 demonstrated EF of 60% -Echo repeated during this hospital stay demonstrated EF of 35% consistent with heart failure with reduced ejection fraction 9. Anemia - Secondary to chronic disorder monitoring H&H and transfuse if patient becomes symptomatic or hemoglobin falls below 7 Patient was transfused 2 units of PRBC on 03/10 because of severe anemia 7.2. Currently 8 g. 10. Acute liver injury secondary to shock liver ?Secondary to shock liver from patient cardiopulmonary arrest monitoring 11. Essential hypertension BP 130/80 12. Tobacco dependence 13. DVT prophylaxis ?On systemic anticoagulation with heparin 14. Hypokalemia Potassium getting corrected as per protocol Saw the patient again at about 2 PM. Family members patient's girlfriend surrounding the patient. Patient family member elected hospice care therefore PT and OT tube terminally extubated. Patient is still has heartbeat, blood pressure 130/87 and as per family members he is able to tell the name of his kids. Plan is transfer to inpatient hospice care. Total time spent, exact 35 minutes on discharge meds reconciliation, examination, coordination of care with nurses and ancillary staff, review of imaging and blood test and discussion with the patient on follow-up instructions Physical Exam Narrative Please see progress note of the same date. Medical Records Data Medical Nutrition Assessment Dietitian: Malnutrition Criteria Met Start: 03/20/21 08:54 Freq: Status: Active Protocol: Document 03/22/21 10:53 AG (Rec: 03/22/21 10:53 [id number]) Nutrition Malnutrition Evidence of Malnutrition Exists Yes Malnutrition (severe): Acute Illness/Injury Evidenced By Suboptimal Energy Intake ( Severe),Weight Loss (Severe) Intake Problem Inadequate Oral Intake Etiology r/t dysphagia, altered mental status Signs/Symptoms as evidenced by inability to consume sufficient nutrition via PO diet x5 days Status Active Problem Clinical Problem Acute Disease or Injury Related Malnutrition Etiology severe, acute malnutrition r/t inadequate energy intake d/t mechanical intubation, dysphagia s/p extubation Signs/Symptoms as evidenced by unintentional wt loss of 4.3% since adm, estimated PO Intake meeting < 50% of estimated energy needs >5 days. Status Active Problem Recommendation Dietitian Recommendations/Changes NPO; Vital AF 1.2 via OGT at goal rate of 50mL/hour w/ 150mL H2O flush every 4 hours to provide 1440 calories, 90 g protein, and 1873mL total fluid/day. Would start at 20mL /hour and increase by 10mL every 12 hours as tolerated until goal rate is achieved. Close monitoring of electrolytes given malnutrition, lack of PO intake x 5 days. Will order mag/phos. Weight / BMI Weight Weight: 136 lb 7.458 oz Body Mass Index (BMI) 23.6 ABG / Lab / Microbiology Data Result Diagrams: 03/24/21 04:15 03/24/21 04:15 Laboratory: Laboratory Results - last 24 hr 03/24/21 04:15: Sodium 144, Potassium 3.0 L, Chloride 114 H, Carbon Dioxide 26.0, Anion Gap 4 L, BUN 6 L, Creatinine 0.74, Estim Creat Clear Calc 82.23, Est GFR (MDRD) Af Amer 137, Est GFR (MDRD) Non-Af 113, BUN/Creatinine Ratio 8.1 L, Glucose 159 H, Calcium 7.5 L, Phosphorus 2.8, Magnesium 1.7 03/24/21 04:15: WBC 4.8, RBC 2.70 L, Hgb 8.0 L, Hct 25.5 L, MCV 94.4 H, MCH 29.6, MCHC 31.4 L, RDW Std Deviation 63.7 H, RDW Coeff of Harjeet 18.7 H, Plt Count 259, MPV 11.0, Immature Gran % (Auto) 0.600, Neut % (Auto) 63.3, Lymph % (Auto) 21.0, Jewell % (Auto) 8.0, Eos % (Auto) 6.7 H, Baso % (Auto) 0.4, Absolute Neuts (auto) 3.0, Absolute Lymphs (auto) 1.00, Nucleated RBC % 0 03/24/21 04:15: APTT 194.1 H* 03/24/21 05:50: APTT 72.8 H Microbiology: Microbiology 03/18/21 10:35 Blood Culture (Wb) - Right Hand Blood Culture - Final No growth in 5 days. 03/18/21 10:00 Blood Culture (Wb) - Central Line Blood Culture - Final No growth in 5 days. 03/21/21 15:25 Sputum, Induced/Lukens Gram Stain - Final 03/21/21 15:25 Sputum, Induced/Lukens Respiratory Culture - Final Escherichia coli 03/20/21 23:54 Nasal Secretion SARS-CoV-2 Antigen (Rapid) - Final 03/18/21 13:00 Sputum, Induced/Lukens Gram Stain - Final 03/18/21 13:00 Sputum, Induced/Lukens Respiratory Culture - Final Pseudomonas aeroginosa 03/11/21 12:10 Blood Culture (Wb) - Right Forearm Blood Culture - Final No growth in 5 days. 03/11/21 12:15 Blood Culture (Wb) - Left Forearm Blood Culture - Final No growth in 5 days. 03/09/21 07:53 Blood Culture (Wb) - Anticubital Right Blood Culture - Final Coag Negative Staph 03/09/21 07:55 Blood Culture (Wb) - Anticubital Left Blood Culture - Final No growth in 5 days. 03/09/21 07:50 Urine Catheter - Catheter Urine Culture - Final Culture exhibits no growth. 03/07/21 23:00 Sputum, Induced/Lukens Gram Stain - Final 03/07/21 23:00 Sputum, Induced/Lukens Respiratory Culture - Final Mixed normal respiratory héctor. No Streptococcus pneumoniae, beta-hemolytic Streptococcus or Staphylococcus aureus isolated. 03/07/21 06:08 Nasal Secretion SARS-CoV-2 Antigen (Rapid) - Final Meaningful Use Info Meaningful Use Diagnoses (Choose all that apply): None applicable Discharge Plan Admission Admit Date/Time: 03/07/21 06:17 Attending Provider: Garth Breaux Primary Care Provider: Josue Cifuentes Consulting Providers: Bertha Murillo ; Martir Mckenna ; Sean Roberts ; Marisela Elizondo GREEN END DEPARTMENT SUPERVISOR ; Essence Scott ; Dean Santos ; Eunice Dueñas ; Milagros Sharif ; Wilda Raygoza ; Dang Little GREEN END DEPARTMENT SUPERVISOR Discharge Orders/Prescriptions Prescriptions: No Action carvedilol 3.125 MG tablet 3.125 mg PO BID RF: 0 ferrous sulfate 325 MG tablet 325 mg PO DAILY RF: 0 finasteride 5 MG tablet 5 mg PO DAILY RF: 0 ascorbic acid (vitamin C) 500 MG tablet 1,000 mg PO BID RF: 0 omeprazole 40 MG capsule,delayed release(DR/EC) 40 mg PO DAILY RF: 0 trazodone 300 MG tablet 300 mg PO QHS RF: 0 docusate sodium 100 MG capsule 100 mg PO BID RF: 0 lisinopril 10 MG tablet 10 mg PO DAILY RF: 0 pregabalin 100 mg Capsule 100 mg PO BID RF: 0 hydroxyzine HCl 25 mg Tablet 25 mg PO TID PRN (Reason: Anxiety) RF: 0 acetaminophen [Tylenol] 325 mg Tablet 650 mg PO Q6H PRN PRN (Reason: Pain Score 1-10/Temp > 100.7 F) Qty: 0 RF: 0 multivitamin Tablet 1 tab PO DAILY Qty: 1 RF: 0 ropinirole 0.5 mg tablet 0.5 mg PO QHS RF: 0 paroxetine HCl 40 mg tablet 50 mg PO DAILY RF: 0 Spiriva with HandiHaler 18 mcg capsule, w/inhalation device 1 cap INHALATION BID RF: 0 furosemide 20 mg tablet 60 mg PO DAILY RF: 0 atorvastatin 20 mg tablet 20 mg PO DAILY RF: 0 donepezil 10 mg tablet 10 mg PO DAILY RF: 0 folic acid 1 mg tablet 1 mg PO DAILY RF: 0 enoxaparin 60 mg/0.6 mL syringe 60 mg subcut DAILY RF: 0 oxybutynin chloride 5 mg tablet 5 mg PO TID RF: 0 acamprosate 333 mg tablet,delayed release (DR/EC) 2 tab PO TID RF: 0 Referrals / Follow Up: Josue Cifuentes MD [Primary Care Provider] - Disposition Discharge Orders: Discharge Patient (Routine); Ordered 03/24/21 Ordered By: Dr. Garth Breaux Charges/Coding Addendum Addendum: Please cancel the billing charge of progress note of same date, 03/24 Visit Charges Inpatient E&M: 92567 Disch Hosp
--- NOTE | 2021-03-24 15:19 | NURSING ---
10 Minutes prior to discharge, one of the daughters became distressed because the patient told the patient that someone gave him meth without his permission. She was agitated and wanted use to investigate if he had meth in his system. She stormed out of the ICU speaking loudly / swearing. The rest of the family gave consent to proceed with hospice transfer.
--- NOTE | 2021-03-25 08:30 | CM.ED ---
SW Note SW went to ICU to provide support to patient's family. Family requested forest resources professor be called. Family requested coffee. Sarah, RN called Dietary for support food tray. SW called Service Counselor and requested his presence with patient. Service Counselor will follow up. ROSY called ICU at approximately noon and spoke to staff. No issues or concerns regarding patient at this time. ROSY spoke to Chaplain Clemens and he advised patient will be going to [facility] today. Plan: [facility] ACEVEDO
--- NOTE | 2021-04-03 10:05 | EX.ED.DYSGE1 ---
HPI History of Present Illness Chief Complaint: ETOH Intox Detail of Chief Complaint: Cardiac arrest Informant: other Narrative Narrative: Patient was initially seen by Dr. Gonzalo Eric and turned over to Dr. Douglas awaiting admission for alcohol detox. Patient had a cardiac arrest while waiting admission. I assisted Dr. Douglas by performing the intubation. The code was run by Dr. Douglas. [facility] Medical History (Updated 04/03/21 @ 10:[address] Johnson De Los Santos, DO) Alcohol dependence Alcohol use Alcoholic cirrhosis Alcoholism /alcohol abuse Ambulates with cane Anxiety Arthritis Blackout BPH (benign prostatic hyperplasia) Bruising Cardiac arrest Cardiology follow-up encounter Cardiomyopathy Chronic cough COPD (chronic obstructive pulmonary disease) Dementia Depression Easy bruising Essential hypertension Excessive bleeding Fever Gastric reflux High cholesterol History of GI bleed History of pacemaker History of wrist fracture HTN (hypertension) Hyperlipidemia Hypotension Injury of back Injury of head and neck Marijuana use Neuropathy Nonrheumatic aortic (valve) insufficiency Paroxysmal atrial fibrillation Presence of permanent cardiac pacemaker Prostate disease Renal insufficiency Shortness of breath on exertion Smoker Wears dentures Wears glasses Wears hearing aid Home Medications carvedilol 3.125 mg PO BID 08/18/17 [History Last Taken 05/12/20] ferrous sulfate 325 mg PO DAILY 08/18/17 [History Last Taken 05/12/20] finasteride 5 mg PO DAILY 08/18/17 [History Last Taken 05/12/20] oxybutynin chloride 5 mg tablet 5 mg PO TID tab 11/29/18 [History Last Taken 05/12/20] acamprosate 333 mg tablet,delayed release 2 tab PO TID tab 12/06/19 [History Last Taken 05/12/20] ascorbic acid (vitamin C) 1,000 mg PO BID 01/12/20 [History Last Taken 05/12/20] docusate sodium 100 mg PO BID 05/13/20 [History Last Taken 05/12/20] lisinopril 10 mg PO DAILY 05/13/20 [History Last Taken 05/12/20] omeprazole 40 mg PO DAILY 05/13/20 [History Last Taken 05/12/20] trazodone 300 mg PO QHS 05/13/20 [History Last Taken 05/12/20] pregabalin 100 mg PO BID 09/04/20 [History Last Taken Unknown] hydroxyzine HCl 25 mg PO TID PRN 11/10/20 [History Last Taken Unknown] acetaminophen [Tylenol] 650 mg PO Q6H PRN PRN #0 tab 11/12/20 [Rx Last Taken Unknown] multivitamin 1 tab PO DAILY #1 tab 11/12/20 [Rx Last Taken Unknown] furosemide 60 mg PO DAILY 02/01/21 [History Last Taken Unknown] paroxetine HCl 50 mg PO DAILY 02/01/21 [History Last Taken Unknown] ropinirole 0.5 mg PO QHS 02/01/21 [History Last Taken Unknown] tiotropium bromide [Spiriva with HandiHaler] 1 cap INHALATION BID 02/01/21 [History Last Taken Unknown] atorvastatin 20 mg PO DAILY 03/07/21 [History Last Taken Unknown] donepezil 10 mg PO DAILY 03/07/21 [History Last Taken Unknown] enoxaparin 60 mg SUBCUT DAILY 03/07/21 [History Last Taken Unknown] folic acid 1 mg PO DAILY 03/07/21 [History Last Taken Unknown] Allergy/AdvReac Type Severity Reaction Status Date / Time ibuprofen AdvReac Upset Verified 03/07/21 05:55 Stomach metronidazole AdvReac Upset Verified 03/07/21 05:55 Stomach naproxen [From Aleve] AdvReac gi upset Verified 03/07/21 05:55 Family History Mother Heart disease Father Heart disease CVA (cerebral vascular accident) Brother Heart disease Diabetes Sister Heart disease Surgical History H/O mitral valve replacement with mechanical valve (~2009) History of ankle surgery History of arthroscopy of left shoulder History of cholecystectomy History of hernia repair History of hip surgery History of sinus surgery Status post mitral valve replacement (~2009) Social History Smoking Status: Current every day smoker tobacco type: cigarettes alcohol intake: former year quit: 2016 substance use type: does not use MDM MDM MDM Narrative Medical decision making narrative: I assisted Dr. Douglas during patient's cardiac arrest by intubating patient with a 7.5 ET tube without complication. Procedures Intubations Intubation Method: orotracheal Intubation Verification: Positive color change and Bilateral breath sounds confirmed Intubation Complications: no complications Discharge Plan Dx/Rx/DC Orders Clinical Impression: Alcohol abuse, Noncompliance with medications, Nausea, Acute hypokalemia, Cannabis dependence, Cardiac arrest Disposition Disposition: Acute Care Hospital [facility] Discharge Date/Time: 03/07/21 19:50
== END 2021-03-24 14:40 | disposition hospice, inpatient (51) | DRG 896 ==
LOC: ED 06:52 → PCU 07:12 → ICU 21:20
PROVIDERS: Emergency Medicine; Internal Medicine; Internal Medicine Critical Care Medicine; Student in an Organized Health Care Education/Training Program; Admitting Provider Hospitalist; Emergency Provider Emergency Medicine; PCP Family Medicine; Referring Provider Internal Medicine Interventional Cardiology; Visit Provider Internal Medicine
DX: F10.239 Alcohol dependence with withdrawal, unspecified (principal); I49.01 Ventricular fibrillation; N17.0 Acute kidney failure with tubular necrosis; I46.2 Cardiac arrest due to underlying cardiac condition; K72.00 Acute and subacute hepatic failure without coma; J96.01 Acute respiratory failure with hypoxia; G92.8 Other toxic encephalopathy; J15.5 Pneumonia due to Escherichia coli; E43 Unspecified severe protein-calorie malnutrition; J96.02 Acute respiratory failure with hypercapnia; I21.19 ST elevation (STEMI) myocardial infarction involving other coronary artery of inferior wall; J13 Pneumonia due to Streptococcus pneumoniae; I50.22 Chronic systolic (congestive) heart failure; E87.1 Hypo-osmolality and hyponatremia; F05 Delirium due to known physiological condition; I11.0 Hypertensive heart disease with heart failure; I48.0 Paroxysmal atrial fibrillation; K70.30 Alcoholic cirrhosis of liver without ascites; F03.90 Unspecified dementia, unspecified severity, without behavioral disturbance, psychotic disturbance, mood disturbance, and anxiety; F12.20 Cannabis dependence, uncomplicated; I45.9 Conduction disorder, unspecified; E83.42 Hypomagnesemia; E87.6 Hypokalemia; E83.39 Other disorders of phosphorus metabolism; E78.5 Hyperlipidemia, unspecified; F17.210 Nicotine dependence, cigarettes, uncomplicated; D63.8 Anemia in other chronic diseases classified elsewhere; M19.90 Unspecified osteoarthritis, unspecified site; N40.0 Benign prostatic hyperplasia without lower urinary tract symptoms; K21.9 Gastro-esophageal reflux disease without esophagitis; F41.9 Anxiety disorder, unspecified; I95.9 Hypotension, unspecified; E87.8 Other disorders of electrolyte and fluid balance, not elsewhere classified; R45.1 Restlessness and agitation; B96.20 Unspecified Escherichia coli [E. coli] as the cause of diseases classified elsewhere; B96.5 Pseudomonas (aeruginosa) (mallei) (pseudomallei) as the cause of diseases classified elsewhere; R74.01 Elevation of levels of liver transaminase levels; Z95.0 Presence of cardiac pacemaker; Z91.14 Patient's other noncompliance with medication regimen; Z79.01 Long term (current) use of anticoagulants; R13.10 Dysphagia, unspecified; Z79.1 Long term (current) use of non-steroidal anti-inflammatories (NSAID); T43.595A Adverse effect of other antipsychotics and neuroleptics, initial encounter; Y90.8 Blood alcohol level of 240 mg/100 ml or more; Z95.2 Presence of prosthetic heart valve; Z79.899 Other long term (current) drug therapy; Z23 Encounter for immunization; Z82.49 Family history of ischemic heart disease and other diseases of the circulatory system; Z68.23 Body mass index [BMI] 23.0-23.9, adult
CPT/HCPCS: 31500; 31720; 36569; 36600; 70450; 71045; 76770; 80048; 80053; 80076; 80184; 80202; 80307; 82077; 82140; 82550; 82803; 83735; 83880; 84100; 84478; 85014; 85018; 85025; 85610; 85730; 86850; 86900; 86901; 86920; 86922; 87040; 87070; 87077; 87086; 87184; 87186; 87205; 87426; 87641; 92526; 92610; 92950; 93005; 93306; 93308; 94002; 94003; 94640; 94660; 94667; 94668; 94762; 95819; 97110; 97162; 97163; 97166; 97530; 97535; 97802; 97803; 99251; 99285; 99406; J7030; J7040; J7050; P9016; Q9957; A4216; C8924; C8929; G0463; J1940; J2405; J3010; J3475; J3490